=== PATIENT | female | born 1945 | race Caucasian/White ===

== ENCOUNTER 2023-04-28 10:22 | Outpatient (RCR) | payer MEDICARE, OTHER, SELFPAY | END 2023-06-03 13:37 | disposition home or self-care (01) | LOC: PT 10:22 | PROVIDERS: PCP Family Medicine Adult Medicine; Visit Provider Family Medicine Adult Medicine | DX: Z96.659 Presence of unspecified artificial knee joint (principal); M25.569 Pain in unspecified knee; M25.551 Pain in right hip; M54.16 Radiculopathy, lumbar region | CPT/HCPCS: 97010; 97035; 97110; 97112; 97140; 97161; G0283 ==

== ENCOUNTER 2023-07-29 13:23 | Outpatient (OUT) | payer MEDICARE, OTHER, SELFPAY ==
[2023-07-29 09:29] LABS: Bilirubin Urine NEGATIVE (NEGATIVE); Blood Urine NEGATIVE (NEGATIVE); Clarity Urine CLEAR (CLEAR); Color Urine LT. YELLOW (YELLOW); Glucose Urine UA NEGATIVE (NEGATIVE); Ketones Urine NEGATIVE (NEGATIVE); Leukocyte Esterase Urine SMALL (NEGATIVE); Nitrite Urine NEGATIVE (NEGATIVE); Protein Urine NEGATIVE (NEG/TRACE); Specific Gravity Urine 1.015 (1.005-1.025); Urobilinogen Urine 0.2 EU/dL (0.2-1.0)
[2023-07-29 10:05] LABS: Bacteria Urine LARGE #/HPF (NONE SEEN); Mucus Urine NONE SEEN (NONE SEEN); RBC Urine NONE SEEN #/HPF (0-2); Squamous Epithelial Cell Urine FEW #/LPF (NONE/RARE)
[2023-07-29 10:06] LABS: Urine Culture Indicated ALREADY ORDERED
== END 2023-07-29 13:24 | disposition home or self-care (01) ==
PROVIDERS: PCP Family Medicine Adult Medicine; Visit Provider Physician Assistant
DX: R10.9 Unspecified abdominal pain (principal)
CPT/HCPCS: 81001; 87086; 87150; 87186

== ENCOUNTER 2023-08-14 07:39 | Outpatient (OUT) | payer MEDICARE, OTHER, SELFPAY ==
--- OUTSIDE RECORDS SUMMARY | 2023-08-14 07:49 | XMS_ITS ---
Patient Summarization (C-CDA 2.1 CCD) Created on: August 14, 2023 OSIRIS HERRERA : 1945 Sex: Female Author Organization Sample organization Care Team Providers Care Client Strategist Name Role Phone NICK GUERRIER Admitting Unavailable NICK GUERRIER Attending Unavailable NICK GUERRIER Consulting Unavailable MIS, DOCTOR Primary Care Unavailable Dakotah Priest Primary Care Provider Aide Ball Unavailable Unavailable Unavailable Aide BALL Primary Care Physician Dakotah Gallardo Primary Care Physician Unavail able Marlys Bhardwaj Primary Care Physician [phone] Dakotah Gallardo Primary Care Physician Unavail able RANI CORCORAN Attending Unavailable MD Crow Gaona Admitting Unavailable Crow Gaona Attending Unavailable Crow Gaona Referring Unavailable Reyes VEGA Attending Unavailable Dakotah Gallardo Attending Unavailable Dakotah Gallardo Attending Unavailable Dakotah Gallardo Attending Unavailable ALEX Cornell Admitting UnavailMarilu Dutton Attending Unavailable Dakotah Gallardo Referring Unavailable Marilu Cornell Admitting Unavailable Marilu Cornell Attending Unavailable Marilu Cornell Referring Unavailable MD Crow Gaona Admitting Unavailable Crow Gaona Attending Unavailable Crow Gaona Referring Unavailable Dakotah Gallardo Attending Unavailable Dakotah Gallardo Attending Unavailable Dakotah Gallardo Attending Unavailable Dakotah Gallardo Attending Unavailable Dakotah Gallardo Attending Unavailable Dakotah Gallardo Attending Unavailable PRESTON LENNON Attending Unavailable Dakotah Gallardo Attending Unavailable Dakotah Gallardo Attending Unavailable Dakotah Gallardo Attending Unavailable Dakotah Gallardo Attending Unavailable Dakotah Gallardo Attending Unavailable Dakotah Gallardo Attending Unavailable Dakotah Gallardo Attending Unavailable Landry Mason Admitting Unavailable Landry Mason Attending Unavailable Moses MARTINEZ Admitting Unavailable Ashley Jordan Attending Unavailable MD Crow Gaona Admitting Unavailable Crow Gaona Attending Unavailable Dakotah Gallardo Referring Unavailable Marilu Cornell Admitting Unavailable Marilu Cornell Attending Unavailable Dakotah Gallardo Referring Unavailable Allergies Allergy Classification Reported Allergen(s) Allergy Type Date of Onset Reaction(s) Facility Aspirin (1 source) Aspirin Drug Allergy [facility] Chocolate (1 source) Chocolate Food Allergy [facility] Iodine (and Iodine containting drugs) (1 source) Iodine Drug Allergy [facility] Penicillins (antibiotic) (1 source) Penicillins Drug Allergy [facility] Sulfonamides (antibiotic) (1 source) Sulfonamides (Antibiotic) Drug Allergy [facility] (1 source) Adhesive agent Drug allergy (disorder) [facility] Repository (2 sources) Aspirin; Translations: [aspirin] Drug Allergy [facility] (1 source) Chocolate Drug allergy (disorder) [facility] (2 sources) Iodine; Translations: [iodine] Drug Allergy 6 [facility] (1 source) Penicillin Drug Allergy 6 [facility] (1 source) Sulfonamides (Antibiotic) Drug allergy (disorder) [facility] (20 sources) Aspirin; Translations: [Aspirin TABS] Drug Allergy Nausea [facility] Work Phone: (1 source) Iodine; Translations: [Iodine SOLN] Drug Allergy [facility] Work Phone: (20 sources) Penicillins; Translations: [Penicillins] Allergy to drug (finding) Eruption of skin (disorder) [facility] Work Phone: (1 source) Sulfonamides (Antibiotic); Translations: [Sulfa Drugs] Allergy to drug (finding) [facility] Work Phone: (1 source) Adhesive Tape TAPE; Translations: [Adhesive Tape TAPE] Allergy to drug (finding) [facility] Work [facility]: (20 sources) Adhesive bandage; Translations: [Adhesive Bandage] Allergy to substance Eruption of skin (disorder) [facility] (20 sources) Chocolate; Translations: [Chocolate] Food allergy Anaphylaxis (disorder) [facility] (20 sources) Sulfamethoxazole; Translations: [sulfamethoxazole ] Drug Allergy Swelling [facility] (20 sources) iodinated radiocontrast dyes 1; Translations: [iodinated radiocontrast agents] Drug allergy Unknown (qualifier value) [facility] Comment on above: gave benadryl last t dipika and did ok (1 source) iodinated radiocontrast dyes; Translations: [iodinated radiocontrast dyes] Propensity to adverse reactions (disorder) [facility] Repository Encounters Encounter Date Encounter Type Care Provider Facility Start: 07-31-2023 End: 08-01-2023 ambulatory PRESTON LENNON Facility:[facility] Start: 07-31-2023 End: 07-31-2023 Patient encounter procedure PRESTON LENNON [facility] Start: 07-17-2023 End: 07-18-2023 ambulatory Marilu Cornell Facility:[facility] Start: 07-17-2023 End: 07-17-2023 Pain Management Marilu Cornell [facility] Start: 07-04-2023 End: 07-05-2023 ambulatory MD Crow Gaona Facility:[facility] Start: 07-04-2023 End: 07-04-2023 Pain Management Crow Gaona [facility] Start: 06-27-2023 End: 06-28-2023 ambulatory Dakotah Gallardo Facility:[facility] Start: 06-27-2023 End: 06-27-2023 Patient encounter procedure Dakotah Gallardo [facility] Start: 05-22-2023 End: 05-23-2023 ambulatory MD Crow Gaona Facility:[facility] Start: 05-22-2023 End: 05-22-2023 Pain Management Crow Gaona [facility] Start: 05-15-2023 End: 05-15-2023 ambulatory RANI CORCORAN Not Available Start: 04-18-2023 End: 04-19-2023 ambulatory Dakotah Gallardo Facility:[facility] Start: 04-06-2023 [facility] Start: 03-31-2023 End: 04-01-2023 ambulatory Landry Mason Facility:[facility] Start: 03-31-2023 End: 03-31-2023 Patient encounter procedure Landry Mason [facility] Start: 03-31-2023 End: 04-01-2023 ambulatory Dakotah Gallardo Facility:[facility] Start: 03-31-2023 End: 03-31-2023 Patient encounter procedure Dakotah Gallardo [facility] Start: 02-10-2023 End: 03-13-2023 ambulatory Dakotah Gallardo Facility:[facility] Start: 01-11-2023 End: 01-27-2023 ambulatory Dakotah Gallardo Facility:[facility] Start: 01-11-2023 End: 01-26-2023 Off-Site Dakotah Gallardo [facility] Start: 01-09-2023 End: 01-10-2023 ambulatory Dakotah Law Geepallavi Facility:[facility] Start: 01-09-2023 End: 01-09-2023 Patient encounter procedure Dakotah Gallardo [facility] Start: 11-04-2022 End: 11-05-2022 ambulatory Dakotah Law Geepallavi Facility:[facility] Start: 11-04-2022 End: 11-04-2022 Patient encounter procedure Dakotah Gallardo [facility] Start: 10-24-2022 End: 10-25-2022 ambulatory Marilu Cornell Facility:[facility] Start: 10-24-2022 End: 10-24-2022 Patient encounter procedure Marilu Cornell [facility] Start: 09-21-2022 End: 09-22-2022 ambulatory Reyes VEGA Facility:[facility] Start: 09-21-2022 End: 09-21-2022 Patient encounter procedure Reyes VEGA [facility] Start: 09-16-2022 End: 09-17-2022 ambulatory Dakotah Ani Madrigalalexpallavi Facility:[facility] Start: 09-16-2022 End: 09-16-2022 Patient encounter procedure Dakotah Gallardo [facility] Start: 09-14-2022 ambulatory MD Crow Gaona Facil ity:[facility] Start: 09-05-2022 End: 09-06-2022 ambulatory PA-C Marilu Cornell Facility:[facility] Start: 09-05-2022 End: 09-05-2022 Pain Management Marilu Cornell [facility] Start: 08-31-2022 ambulatory MD Crow Gaona Facil ity:[facility] Start: 08-31-2022 End: 09-01-2022 ambulatory Dakotah Flynnpallavi Facility:[facility] Start: 08-23-2022 End: 08-24-2022 ambulatory MD Crow Gaona Facility:[facility] Start: 08-18-2022 End: 08-19-2022 Emergency department patient visit Moses MARTINEZ Facility:[facility] Start: 08-12-2022 End: 08-13-2022 ambulatory Dakotah Ani Geepallavi Facility:[facility] Start: 08-12-2022 End: 08-12-2022 Patient encounter procedure Dakotah Ani Madrigalvane [facility] Start: 08-11-2022 End: 09-06-2022 ambulatory Dakotah Gallardo Facility:[facility] Start: 08-11-2022 End: 09-05-2022 Off-Site [place] Ani Madrigalvane [facility] Start: 07-22-2022 End: 07-22-2022 Pain Management Marilu Cornell [facility] Start: 07-15-2022 End: 07-15-2022 Patient encounter procedure Dakotah Law Kaitlinvane [facility] Start: 07-13-2022 End: 07-13-2022 Patient encounter procedure Marilu Cornell [facility] Start: 07-11-2022 End: 07-11-2022 Patient encounter procedure Basmikel Clinton [facility] Start: 07-11-2022 End: 08-10-2022 [facility] [place] [facility] Start: 07-07-2022 End: 07-07-2022 Patient encounter procedure Marilu Cornell [facility] Start: 07-04-2022 End: 07-04-2022 Pain Management Mariluzach Cornell [facility] Start: 06-13-2022 End: 07-06-2022 Off-Site Dakotah Gallardo [facility] Start: 06-06-2022 End: 06-06-2022 Pain Management Crow Gaona [facility] Start: 05-30-2022 End: 05-30-2022 Patient encounter procedure Reynold Romo [facility] Start: 05-30-2022 End: 05-30-2022 Patient encounter procedure Dakotah Gallardo [facility] Start: 05-25-2022 End: 05-25-2022 Patient encounter procedure Floresita Clinton [facility] Start: 05-16-2022 End: 05-16-2022 Pain Management Mariluzach Cornell [facility] Start: 05-11-2022 End: 06-09-2022 Off-Site Dakotah Gallardo [facility] Start: 04-19-2022 End: 04-19-2022 Patient encounter procedure Dakotah Gallardo [facility] Start: 04-13-2022 End: 04-13-2022 Patient encounter procedure Reyes VEGA [facility] Start: 04-11-2022 End: 04-11-2022 Patient encounter procedure Reynold Romo [facility] Start: 03-28-2022 End: 03-28-2022 Patient encounter procedure Reyes Sandoval GARY [facility] Start: 03-22-2022 End: 04-05-2022 Pre-admission assessment Floresita Clinton [facility] Start: 03-21-2022 End: 03-21-2022 Lab Drop off [place] Lois Maria [facility] Start: 03-21-2022 End: 03-21-2022 Patient encounter procedure Floresita Clinton [facility] Start: 03-16-2022 End: 03-16-2022 Patient encounter procedure Dakotah Gallardo [facility] Start: 03-14-2022 End: 04-08-2022 Off-Site [place] Ani Gallardo [facility] Start: 02-28-2022 End: 02-28-2022 Patient encounter procedure [place] Ani Gallardo [facility] Start: 01-13-2022 End: 01-13-2022 Emergency department patient visit Crispin Vila [facility] Start: 01-13-2022 End: 01-13-2022 Patient encounter procedure Lico Benton [facility] Start: 12-13-2021 End: 01-06-2022 Off-Site Lico Gudimella [facility] Start: 11-30-2021 End: 11-30-2021 Patient encounter procedure Dakotah Gallardo [facility] Start: 10-15-2021 End: 10-15-2021 Patient encounter procedure Aide BALL [facility] Start: 10-11-2021 End: 11-02-2021 Off-Site Aide BALL [facility] Start: 10-01-2021 End: 10-01-2021 Patient encounter procedure Aide BALL [facility] Start: 09-29-2021 End: 09-29-2021 Emergency department patient visit Crispin Vila [facility] Start: 09-21-2021 End: 09-21-2021 Off-Site Aide BALL [facility] Start: 09-10-2021 End: 09-29-2021 Off-Site Aide BALL [facility] Start: 08-11-2021 End: 09-09-2021 Off-Site Aide BALL [facility] Start: 07-30-2021 End: 07-30-2021 Patient encounter procedure Nathan Henry [facility] Start: 07-12-2021 End: 07-12-2021 Patient encounter procedure Reyes Jaime VEGA [facility] Start: 07-12-2021 End: 08-06-2021 Off-Site Adie BALL [facility] Start: 06-11-2021 End: 07-02-2021 Off-Site Aide Abreu [employer] [facility] Start: 05-11-2021 End: 06-08-2021 Off-Site Aide CHAMBERLAINFIELD [facility] Start: 11-04-2020 Patient encounter procedure Aide Lois Quinn [facility] Phone[facility] Work Phone: Start: 11-16-2019 End: 11-17-2019 Patient encounter procedure NICK GUERRIER Facility: Start: 03-24-2006 End: 03-24-2006 Patient encounter procedure Earnest Bermudez MD Work Phone: Cardiothoracic Comment on above: PULM HYPERTENSION (P rimary Dx) Medical Equipment Procedure Code Equipment Code Equipment Origin al Text Equipment Identifier Dates FDA Start: 09-07-2020 FDA Start: 09-07-2020 FDA Start: 09-07-2020 FDA Start: 09-07-2020 FDA Start: 09-07-2020 HERNIA REPAIR VENTRAL ADULT Star JARRETT MD 09/07/20 Non Biological Abdomen FDA Start: 09-07-2020 HERNIA REPAIR VENTRAL ADULT Star JARRETT MD 09/07/20 Non Biological Abdomen FDA Start: 09-07-2020 HERNIA REPAIR VENTRAL ADULT Star JARRETT MD 09/07/20 Non Biological Abdomen FDA Start: 09-07-2020 HERNIA REPAIR VENTRAL ADULT KOLBY BANSAL, Star Esteves 09/07/20 Non Biological Abdomen FDA Start: 09-07-2020 HERNIA REPAIR VENTRAL ADULT KOLBY BANSAL, Star Esteves 09/07/20 Non Biological Abdomen FDA Start: 09-07-2020 HERNIA REPAIR VENTRAL ADULT KOLBY BANSAL, Star Esteves 09/07/20 Non Biological Abdomen FDA Start: 09-07-2020 HERNIA REPAIR VENTRAL ADULT KOLBY ABNSAL, Star Esteves 09/07/20 Non Biological Abdomen FDA Start: 09-07-2020 HERNIA REPAIR VENTRAL ADULT KOLBY BANSAL, Star Esteves 09/07/20 Non Biological Abdomen FDA Start: 09-07-2020 HERNIA REPAIR VENTRAL ADULT KOLBY BANSAL, Star Esteves 09/07/20 Non Biological Abdomen FDA Start: 09-07-2020 HERNIA REPAIR VENTRAL ADULT KOLBY BANSAL, Star Esteves 09/07/20 Non Biological Abdomen FDA Start: 09-07-2020 HERNIA REPAIR VENTRAL ADULT KOLBY BANSAL, Star Esteves 09/07/20 Non Biological Abdomen FDA Start: 09-07-2020 HERNIA REPAIR VENTRAL ADULT KOLBY BANSAL, Star Esteves 09/07/20 Non Biological Abdomen FDA Start: 09-07-2020 HERNIA REPAIR VENTRAL ADULT KOLBY BANSAL, Star Esteves 09/07/20 Non Biological Abdomen FDA Start: 09-07-2020 HERNIA REPAIR VENTRAL ADULT KOLBY BANSAL, Star Esteves 09/07/20 Non Biological Abdomen FDA Start: 09-07-2020 HERNIA REPAIR VENTRAL ADULT KOLBY BANSAL, Star Esteves 09/07/20 Non Biological Abdomen FDA Start: 09-07-2020 HERNIA REPAIR VENTRAL ADULT Star JARRETT MD 09/07/20 Non Biological Abdomen FDA Start: 09-07-2020 HERNIA REPAIR VENTRAL ADULT Star JARRETT MD 09/07/20 Non Biological Abdomen FDA Start: 09-07-2020 HERNIA REPAIR VENTRAL ADULT KOLBY BANSAL, Star Esteves 09/07/20 Non Biological Abdomen FDA Start: 09-07-2020 HERNIA REPAIR VENTRAL ADULT KOLBY BANSAL, Star Esteves 09/07/20 Non Biological Abdomen FDA Start: 09-07-2020 HERNIA REPAIR VENTRAL ADULT KOLBY BANSAL, Star Esteves 09/07/20 Non Biological Abdomen FDA Start: 09-07-2020 HERNIA REPAIR VENTRAL ADULT Star JARRETT MD 09/07/20 Non Biological Abdomen FDA Start: 09-07-2020 HERNIA REPAIR VENTRAL ADULT KOLBY BANSAL, Star Esteves 09/07/20 Non Biological Abdomen FDA Start: 09-07-2020 HERNIA REPAIR VENTRAL ADULT KOLBY BANSAL, Star Esteves 09/07/20 Non Biological Abdomen FDA Start: 09-07-2020 HERNIA REPAIR VENTRAL ADULT KOLBY BANSAL, Star Esteves 09/07/20 Non Biological Abdomen FDA Start: 09-07-2020 HERNIA REPAIR VENTRAL ADULT KOLBY BANSAL, Star Esteves 09/07/20 Non Biological Abdomen FDA Start: 09-07-2020 HERNIA REPAIR VENTRAL ADULT KOLBY BANSAL, Star Esteves 09/07/20 Non Biological Abdomen FDA Start: 09-07-2020 HERNIA REPAIR VENTRAL ADULT KOLBY BANSAL, Star Esteves 09/07/20 Non Biological Abdomen FDA Start: 09-07-2020 HERNIA REPAIR VENTRAL ADULT KOLBY BANSAL, Star Esteves 09/07/20 Non Biological Abdomen FDA Start: 09-07-2020 HERNIA REPAIR VENTRAL ADULT KOLBY BANSAL, Star Esteves 09/07/20 Non Biological Abdomen FDA Start: 09-07-2020 HERNIA REPAIR VENTRAL ADULT KOLBY BANSAL, Star Esteves 09/07/20 Non Biological Abdomen FDA Start: 09-07-2020 HERNIA REPAIR VENTRAL ADULT KOLBY BANSAL, Star Esteves 09/07/20 Non Biological Abdomen FDA Start: 09-07-2020 HERNIA REPAIR VENTRAL ADULT KOLBY BANSAL, Star Esteves 09/07/20 Non Biological Abdomen FDA Start: 09-07-2020 HERNIA REPAIR VENTRAL ADULT Star JARRETT MD 09/07/20 Non Biological Abdomen FDA Start: 09-07-2020 HERNIA REPAIR VENTRAL ADULT KOLBY BANSAL, Star Esteves 09/07/20 Non Biological Abdomen FDA Start: 09-07-2020 HERNIA REPAIR VENTRAL ADULT Star JARRETT MD 09/07/20 Non Biological Abdomen FDA Start: 09-07-2020 HERNIA REPAIR VENTRAL ADULT Star JARRETT MD 09/07/20 Non Biological Abdomen FDA Start: 09-07-2020 HERNIA REPAIR VENTRAL ADULT Star JARRETT MD 09/07/20 Non Biological Abdomen FDA Start: 09-07-2020 HERNIA REPAIR VENTRAL ADULT Star JARRETT MD 09/07/20 Non Biological Abdomen FDA Start: 09-07-2020 HERNIA REPAIR VENTRAL ADULT KOLBY BANSAL, Star Esteves 09/07/20 Non Biological Abdomen FDA Start: 09-07-2020 HERNIA REPAIR VENTRAL ADULT Star JARRETT MD 09/07/20 Non Biological Abdomen FDA Start: 09-07-2020 HERNIA REPAIR VENTRAL ADULT Star JARRETT MD 09/07/20 Non Biological Abdomen FDA Start: 09-07-2020 HERNIA REPAIR VENTRAL ADULT Star JARRETT MD 09/07/20 Non Biological Abdomen FDA Start: 09-07-2020 HERNIA REPAIR VENTRAL ADULT Star JARRETT MD 09/07/20 Non Biological Abdomen FDA Start: 09-07-2020 HERNIA REPAIR VENTRAL ADULT Star JARRETT MD 09/07/20 Non Biological Abdomen FDA Start: 09-07-2020 HERNIA REPAIR VENTRAL ADULT Star JARRETT MD 09/07/20 Non Biological Abdomen FDA Start: 09-07-2020 HERNIA REPAIR VENTRAL ADULT Star JARRETT MD 09/07/20 Non Biological Abdomen FDA Start: 09-07-2020 HERNIA REPAIR VENTRAL ADULT Star JARRETT MD 09/07/20 Non Biological Abdomen FDA Start: 09-07-2020 HERNIA REPAIR VENTRAL ADULT Star JARRETT MD 09/07/20 Non Biological Abdomen FDA Start: 09-07-2020 HERNIA REPAIR VENTRAL ADULT Star JARRETT MD 09/07/20 Non Biological Abdomen FDA Start: 09-07-2020 HERNIA REPAIR VENTRAL ADULT Star JARRETT MD 09/07/20 Non Biological Abdomen FDA Start: 09-07-2020 HERNIA REPAIR VENTRAL ADULT Star JARRETT MD 09/07/20 Non Biological Abdomen FDA Start: 09-07-2020 HERNIA REPAIR VENTRAL ADULT Star JARRETT MD 09/07/20 Non Biological Abdomen FDA Start: 09-07-2020 HERNIA REPAIR VENTRAL ADULT Star JARRETT MD 09/07/20 Non Biological Abdomen FDA Start: 09-07-2020 HERNIA REPAIR VENTRAL ADULT Star JARRETT MD 09/07/20 Non Biological Abdomen FDA Start: 09-07-2020 HERNIA REPAIR VENTRAL ADULT Star JARRETT MD 09/07/20 Non Biological Abdomen FDA Start: 09-07-2020 Goals Date Patient Goal Desired Activity /State 03-23-2021 09-22-2020 11-05-2019 01-03-2019 Immunizations Immunization Date Immunization Notes Care Provider Fa tres 05-22-2023 zoster vaccine recombinant PRESTON LENNON [facility] 02-06-2023 zoster vaccine recombinant [facility] 02-06-2023 zoster vaccine, live [facility] Comment on above: Result Comment: Zost er Recombinant [facility] 01-09-2023 influenza, high dose seasonal, preservative-free [facility] Comment on above: Early/Late Reason: E ole/Late Reason: System Down 01-18-2022 COVID-19, mRNA, LNP- S, bivalent booster, PF, 30 mcg/0.3 mL dose [facility] 01-18-2022 influenza, high dose seasonal, preservative-free [facility] 01-13-2021 COVID-19, mRNA, LNP- S, PF, 30 mcg/0.3 mL dose Aide QUINN [facility] 12-09-2020 influenza, high dose seasonal, preservative-free Aide QUINN [facility] 05-18-2020 SARS-CoV-2 (COVID-19 ) mRNA-1273 vaccine Aide QUINN [facility] Comment on above: Result Comment: Samuel malik & Patrice vaccine administered with [facility] dept [employer] scanned with date 12-27-2019 influenza, high dose seasonal, preservative-free Aide QUINN [facility] 12-18-2018 influenza, high dose seasonal, preservative-free Aide QUINN [facility] 01-09-2018 influenza virus vaccine, unspecified formulation Aide CHAMBERLAINFIELD [facility] 03-29-2017 pneumococcal conjuga te vaccine, 13 valhemanth CHAMBERLAINFIELD [facility] 12-08-2016 influenza virus vaccine, unspecified formulation Dakotah Gallardo [facility] 12-17-2015 influenza virus vaccine, unspecified formulation Dakotah Gallardo [facility] 01-21-2014 pneumococcal polysaccharide vaccine, 23 valent Aide QUINN [facility] 12-16-2013 pneumococcal polysaccharide vaccine, 23 valent Aide CHAMBERLAINFIELD [facility] 01-04-2008 pneumococcal polysaccharide vaccine, 23 valhemanth CHAMBERLAINFIELD [facility] NEGATED: Highlighted row has not occurred!01-13-2022 influenza virus vaccine, unspecified formulation Lico Bhardwaj [facility] Medications Current Medications Medication Drug Class(es) Dates Sig (Normalized) Sig (Original) acetaminophen 500 mg oral tablet (20 sources) Start: 05-22-2023 take 500 mg by mouth every six hours Tylenol 500 mg, Oral, q6hr, Refills(s) 0 Start Date: 05/22/23 Status: Ordered Start: 05-22-2023 Tylenol Refill s(s) 0 Start Date: 05/22/23 Status: Ordered Start: 05-14-2019 take 2 tablets by mo uth every six hours as needed for pain Tylenol Extra Strength 500 mg oral tablet 1,000 mg = 2 tab(s), Oral, q6hr, PRN as needed for pain, Refills(s) 0 Start Date: 05/14/19 Status: Ordered acetaminophen 325 mg / oxyCODONE hydrochloride 5 mg oral tablet (20 sources) Opioid Agonist Start: 07-31-2023 acetaminophen- oxycodone 325 mg-5 mg Tab 1 tab(s), Oral, BID, 60 tab(s), Refill(s) 0 Start Date: 07/31/23 Status: Ordered Start: 06-29-2023 acetaminophen- oxycodone 325 mg-5 mg Tab 1 tab(s), Oral, BID, 60 tab(s), Refill(s) 0, 30 day supply, [id number], 169, cm, 05/22/23 11:18:00 EDT, Height/Length Dosing, 84.1, kg, 05/22/23 11:18:00 EDT, Weight Dosing Start Date: 06/29/23 Status: Ordered Start: 06-01-2023 acetaminophen- oxycodone 325 mg-5 mg Tab 1 tab(s), Oral, BID, 60 tab(s), Refill(s) 0, 30 day supply, [id number], 169, cm, 05/22/23 11:18:00 EDT, Height/Length Dosing, 84.1, kg, 05/22/23 11:18:00 EDT, Weight Dosing Start Date: 06/01/23 Status: Ordered Start: 05-02-2023 acetaminophen- oxycodone 325 mg-5 mg Tab 1 tab(s), Oral, BID, 60 tab(s), Refill(s) 0, [id number], 169, cm, 04/18/23 14:16:00 EST, Height/Length Dosing, 86.3, kg, 04/18/23 14:16:00 EST, Weight Dosing Start Date: 05/02/23 Status: Ordered Start: 03-28-2023 acetaminophen- oxycodone 325 mg-5 mg Tab 1 tab(s), Oral, BID, 60 tab(s), Refill(s) 0, [id number], 164, cm, 01/09/23 16:01:00 EDT, Height/Length Dosing, 86.6, kg, 01/09/23 16:01:00 EDT, Weight Dosing Start Date: 03/28/23 Status: Ordered Start: 11-04-2022 take 1 tablet by jaden th at bedtime Percocet 5 mg-325 mg oral tablet 1 tab(s), Oral, Bedtime, 30 tab(s), Refill(s) 0, [facility], 164, cm, 11/04/22 10:24:00 EDT, Height/Length Dosing, 85, kg, 11/04/22 10:24:00 EDT, Weight Dosing Start Date: 11/04/22 Status: Ordered Start: 10-04-2022 take 1 tablet by [facility] twice daily Percocet 5 mg-325 mg oral tablet 1 tab(s), Oral, BID, 60 tab(s), Refill(s) 0, [facility], 164, cm, 09/16/22 10:08:00 EDT, Height/Length Dosing, 87.7, kg, 09/16/22 10:08:00 EDT, Weight Dosing Start Date: 10/04/22 Status: Ordered Start: 08-30-2022 take 1 tablet by [facility] twice daily Percocet 5 mg-325 mg oral tablet 1 tab(s), Oral, BID, 60 tab(s), Refill(s) 0, [facility], 168, cm, 08/23/22 10:38:00 EDT, Height/Length Dosing, 90.8, kg, 08/18/22 19:15:00 EDT, Weight Dosing Start Date: 08/31/22 Status: Ordered Start: 07-27-2022 Percocet 5 mg- 325 mg oral tablet 1 tab(s), Oral, BID, 60 tab(s), Refill(s) 0, [facility] #[id number], 168, cm, 07/22/22 13:03:00 EDT, Height/Length Dosing, 89.8, kg, 07/22/22 13:03:00 EDT, Weight Dosing Start Date: 07/27/22 Status: Ordered Start: 07-15-2022 Percocet 5 mg- 325 mg oral tablet 1 tab(s), Oral, BID, 14 tab(s), Refill(s) 0, [facility] #[id number], 168, cm, 07/15/22 11:11:00 EDT, Height/Length Dosing, 84.1, kg, 07/15/22 11:11:00 EDT, Weight Dosing Start Date: 07/15/22 Status: Ordered albuterol 0.833 mg/ml / ipratropium bromide 0.167 mg/ml inhalation solution (20 sources) Anticholinergic, beta2-Adrenergic Agonist Start: 02-26-2021 take 3 mL by inhalation four times daily albuterol-ipratropium Inh Lizzeth 3 mL UD 3 mL, NEB, QID Wheezing, 120 EA, Refill(s) 11, [facility] #[id number], 165, cm, 02/26/21 14:54:00 EST, Height/Length Dosing, 88.6, kg, 02/26/21 14:54:00 EST, Weight Dosing Start Date: 02/26/21 Status: Ordered Start: 02-26-2021 take 3 mL by inhalat ion four times daily albuterol-ipratropium Inh Lizzeth 3 mL UD 3 mL, NEB, QID Wheezing, 120 EA, Refill(s) 11, [facility] #[id number], 165, cm, 02/26/21 14:54:00 EST, Height/Length Dosing, 88.6, kg, 02/26/21 14:54:00 EST, Weight Dosing Start Date: 02/26/21 Status: Ordered amLODIPine 5 mg oral tablet (20 sources) Dihydropyridine Calcium Channel Tamar Start: 04-06-2023 take 1 tablet by mouth once daily amLODIPine 5 mg Tab 5 mg = 1 tab(s), Oral, Daily, # 90 tab(s), Refills(s) 4, [id number] 169, cm, 03/31/23 13:47:00 EST, Height/Length Dosing, 83.6, kg, 03/31/23 13:47:00 EST, Weight Dosing Start Date: 04/06/23 Status: Ordered Start: 02-28-2022 take 1 tablet by jaden th once daily amLODIPine 5 mg Tab 5 mg = 1 tab(s), Oral, Daily, # 90 tab(s), Refills(s) 3, Pharmacy: [facility] #[id number], 168, cm, 02/28/22 16:04:00 EST, Height/Length Dosing, 89.7, kg, 02/28/22 16:04:00 EST, Weight Dosing Start Date: 02/28/22 Status: Ordered Start: 01-12-2021 take 1 tablet by jaden th once daily amLODIPine 5 mg Tab 5 mg = 1 tab(s), Oral, Daily, # 90 tab(s), Refills(s) 3, [id number], 165.7, cm, 01/12/21 9:44:00 EDT, Height/Length Dosing, 88.5, kg, 01/12/21 9:44:00 EDT, Weight Dosing Start Date: 01/12/21 Status: Ordered Norvasc TABS Silvano ntity: 0 Refills: 0 Ordered: 04-Nov-2020 DO Active azithromycin 500 mg oral tablet (3 sources) Macrolide Antimicrobial Start: 05-30-2022 End: 06-05-2022 take 2 tablets by mouth once daily as needed azithromycin 500 mg oral tablet 1,000 mg = 2 tab(s), Oral, Daily, PRN Agitation, X 3 day(s), # 6 tab(s), Refills(s) 1, [id number], 165, cm, 05/30/22 11:07:00 EDT, Height/Length Dosing, 87.6, kg, 05/30/22 11:07:00 EDT, Weight Dosing Start Date: 05/30/22 Stop Date: 06/05/22 Status: Ordered Start: 02-28-2022 End: 03-10-2022 azithromycin 250 mg Tab = 1 packet(s), Oral, As Directed, as directed on package labeling, X 5 day(s), # 6 tab(s), Refills(s) 1, [id number] 168, cm, 02/28/22 16:04:00 EST, Height/Length Dosing, 89.7, kg, 02/28/22 16:04:00 EST, Weight Dosing Start Date: 02/28/22 Stop Date: 03/10/22 Status: Ordered azithromycin 250 mg Tab 5-da y Dose Pack (Z-Hector) (10 sources) Start: 10-01-2021 azithromycin 2 50 mg Tab 5-day Dose Pack (Z-Hector) = 1 packet(s), Oral, As Directed, as directed on package labeling for her rescue hector, # 6 tab(s), Refills(s) 0, Pharmacy: [id number], 168, cm, 10/01/21 16:17:00 EDT, Height/Length Dosing, 86, kg, 10/01/21 16:17:00 EDT, Weight Dosing Start Date: 10/01/21 Status: Ordered Start: 09-21-2021 End: 09-26-2021 azithromycin 250 mg Tab 5-da y Dose Pack (Z-Hector) 250 mg = 1 tab(s), Oral, As Directed, as directed on package labeling, X 5 day(s), # 6 tab(s), Refills(s) 0, Pharmacy: [facility][id number], 168, cm, 07/30/21 10:21:00 EDT, Height/Length Dosing, 87.2, kg, 07/30/21 10:21:00 EDT, Weight Dosing Start Date: 09/21/21 Stop Date: 09/26/21 Status: Ordered Start: 07-28-2021 End: 08-02-2021 azithromycin 250 mg Tab 5-da y Dose Pack (Z-Hector) = 1 packet(s), Oral, As Directed, as directed on package labeling, X 5 day(s), # 6 tab(s), Refills(s) 0, [id number], 168, cm, 07/28/21 13:24:00 EDT, Height/Length Dosing, 87.2, kg, 07/28/21 13:24:00 EDT, Weight Dosing Start Date: 07/28/21 Stop Date: 08/02/21 Status: Ordered bisacodyl 5 mg delayed release oral tablet (12 sources) Stimulant Laxative Start: 08-31-2020 take 2-3 tablets by mouth once daily for constipation Dulcolax Tab-EC 2-3 tabs, Oral, Daily, adjusts for constipation concerns, Refills(s) 0 Start Date: 08/31/20 Status: Ordered ciprofloxacin 500 mg oral tablet (17 sources) Quinolone Antimicrobial Start: 07-31-2023 End: 08-07-2023 take 1 tablet by mouth every twelve hours Cipro 500 mg Tab 500 mg = 1 tab(s), Oral, q12hr, X 7 day(s), # 14 tab(s), Refills(s) 0, Pharmacy: [id number], 168, cm, 07/31/23 15:00:00 EDT, Height/Length Dosing, 84, kg, 07/31/23 15:00:00 EDT, Weight Dosing Start Date: 07/31/23 Stop Date: 08/07/23 Status: Ordered Start: 06-09-2022 Cipro 500 mg T ab 500 mg = 1 tab(s), Oral, BID, Take twice daily x5 days starting the day prior to the procedure, # 10 tab(s), Refills(s) 0, Pharmacy: [id number], 168, cm, 06/06/22 14:12:00 EDT, Height/Length Dosing, 87.6, kg, 05/30/22 11:07:00 EDT, Weight Dosing Start Date: 06/09/22 Status: Ordered Start: 02-14-2022 take 1 tablet by jaden th twice daily Cipro 500 mg Tab 500 mg = 1 tab(s), Oral, BID, start day prior to procedure., # 14 tab(s), Refills(s) 0, Pharmacy: [id number], 168, cm, 02/14/22 10:28:00 EST, Height/Length Dosing, 89.3, kg, 02/14/22 10:28:00 EST, Weight Dosing Start Date: 02/14/22 Status: Ordered clotrimazole 10 mg oral lozenge (1 source) Azole Antifungal Start: 02-28-2022 End: 03-14-2022 clotrimazole 10 mg Emerald 10 mg = 1 lozenge(s), Oral, 5x/Day, X 7 day(s), # 35 lozenge(s), Refills(s) 1, Pharmacy: [id number], 168, cm, 02/28/22 16:04:00 EST, Height/Length Dosing, 89.7, kg, 02/28/22 16:04:00 EST, Weight Dosing Start Date: 02/28/22 Stop Date: 03/14/22 Status: Ordered cyclobenzaprine hydrochloride 5 mg oral tablet (10 sources) Muscle Relaxant Start: 08-31-2022 take 1 tablet by mouth once daily cyclobenzaprine 5 mg Tab 5 mg = 1 tab(s), Oral, Daily, at night, Refills(s) 0 Start Date: 08/31/22 Status: Ordered Start: 08-12-2022 take 1 tablet by jaden th at bedtime cyclobenzaprine 5 mg Tab 5 mg = 1 tab(s), Oral, Bedtime, # 30 tab(s), Refills(s) 11, Pharmacy: [id number], 168, cm, 08/12/22 9:51:00 EDT, Height/Length Dosing, 86.9, kg, 08/12/22 9:51:00 EDT, Weight Dosing Start Date: 08/12/22 Status: Ordered Start: 07-15-2022 take 1 tablet by jaden th at bedtime cyclobenzaprine 5 mg Tab 5 mg = 1 tab(s), Oral, Bedtime, # 30 tab(s), Refills(s) 0, Pharmacy: [id number], 168, cm, 07/15/22 11:11:00 EDT, Height/Length Dosing, 84.1, kg, 07/15/22 11:11:00 EDT, Weight Dosing Start Date: 07/15/22 Status: Ordered dexlansoprazole 60 mg delayed release oral capsule (20 sources) Proton Pump Inhibitor Start: 04-26-2019 take 1 capsule by mouth once daily Dexilant 60 mg oral delayed release capsule 60 mg = 1 cap(s), Oral, Daily, # 7 cap(s), Refills(s) 0, [facility] [place] [id number], 172.72, cm, 04/24/19 11:14:00 EST, Height/Length Measured, 87.38, kg, 04/24/19 11:14:00 EST, Weight Measured Start Date: 04/26/19 Status: Ordered Dexilant 60 MG O ral Capsule Delayed Release Quantity: 0 Refills: 0 Ordered: 04-Nov-2020 DO Active diphenhydrAMINE hydrochloride 25 mg oral tablet (20 sources) Histamine-1 Receptor Antagonist Start: 05-31-2021 take 2 tablets by mouth at bedtime Benadryl 25 mg Tab = 2 tab(s), Oral, Bedtime, Refills(s) 0 Start Date: 05/31/21 Status: Ordered doxycycline monohydrate 100 mg oral capsule (2 sources) Tetracycline-cla ss Drug Start: 01-13-2022 End: 01-23-2022 take 1 capsule by mouth twice daily doxycycline monohydrate 100 mg oral capsule 100 mg = 1 cap(s), Oral, BID, X 10 day(s), # 20 cap(s), Refills(s) 0, Pharmacy: [id number], 168, cm, 01/13/22 10:18:00 EDT, Height/Length Dosing, 89.3, kg, 01/13/22 10:18:00 EDT, Weight Dosing Start Date: 01/13/22 Stop Date: 01/23/22 Status: Ordered Dulcolax Tab-EC (20 sources) Start: 08-31-2020 take 2-3 tablets by mouth once daily for constipation Dulcolax Tab-EC 2-3 tabs, Oral, Daily, adjusts for constipation concerns, Refills(s) 0 Start Date: 08/31/20 Status: Ordered gabapentin 100 mg oral capsule (20 sources) Anti-epileptic Agent Start: 03-31-2023 take 2 capsules by mouth three times daily gabapentin 100 mg Cap 200 mg = 2 cap(s), Oral, TID, # 180 cap(s), Refills(s) 11, Pharmacy: [id number], 169, cm, 03/31/23 13:47:00 EST, Height/Length Dosing, 83.6, kg, 03/31/23 13:47:00 EST, Weight Dosing Start Date: 03/31/23 Status: Ordered Start: 08-12-2022 take 2 capsules by m outh twice daily gabapentin 100 mg Cap 200 mg = 2 cap(s), Oral, BID, # 120 cap(s), Refills(s) 11, Pharmacy: [id number], 168, cm, 08/12/22 9:51:00 EDT, Height/Length Dosing, 86.9, kg, 08/12/22 9:51:00 EDT, Weight Dosing Start Date: 08/12/22 Status: Ordered Start: 04-19-2022 take 1 capsule by mo ut three times daily gabapentin 100 mg Cap 100 mg = 1 cap(s), Oral, TID, # 90 cap(s), Refills(s) 2, Pharmacy: [facility][id number], 168, cm, 04/19/22 10:28:00 EST, Height/Length Dosing, 90, kg, 04/19/22 10:28:00 EST, Weight Dosing Start Date: 04/19/22 Status: Ordered Handicap Placard (10 sources) Start: 01-09-[address] Handicap Placard, See Instructions, 1 EA, 0, Expires in 5 years, Supply Start Date: 01/09/23 Status: Ordered hydroCHLOROthiazide 25 mg / triamterene 37.5 mg oral tablet (20 sources) Potassium-sparin g Diuretic, Thiazide Diuretic Start: 01-20-2023 Maxzide-25 oral tablet 1 tab(s), Oral, Daily, 90 tab(s), Refill(s) 4, [facility][id number], 164, cm, 01/09/23 16:01:00 EDT, Height/Length Dosing, 86.6, kg, 01/09/23 16:01:00 EDT, Weight Dosing Start Date: 01/20/23 Status: Ordered Start: 01-04-2023 take 1 tablet by [facility] once daily Maxzide-25 oral tablet 1 tab(s), Oral, Daily, 90 tab(s), Refill(s) 4, [facility], 164, cm, 11/04/22 10:24:00 EDT, Height/Length Dosing, 85, kg, 11/04/22 10:24:00 EDT, Weight Dosing Start Date: 01/04/23 Status: Ordered Start: 01-17-2022 Maxzide-25 ora l tablet 1 tab(s), Oral, Daily, 90 tab(s), Refill(s) 3, Covering for , [facility][id number], 168, cm, 01/13/22 10:18:00 EDT, Height/Length Dosing, 89.3, kg, 01/13/22 10:18:00 EDT, Weight Dosing Start Date: 01/17/22 Status: Ordered Start: 01-15-2021 Maxzide-25 ora l tablet 1 tab(s), Oral, Daily, 90 tab(s), Refill(s) 3, [id number], 165.7, cm, 01/12/21 9:44:00 EDT, Height/Length Dosing, 88.5, kg, 01/12/21 9:44:00 EDT, Weight Dosing Start Date: 01/15/21 Status: Ordered ibuprofen 800 mg oral tablet (5 sources) Nonsteroidal Anti-inflammatory Drug Start: 03-31-2023 take 1 mg by mouth three times daily ibuprofen 800 mg Tab mg tab(s), Oral, TID, Refills(s) 0 Start Date: 03/31/23 Status: Ordered Icy Hot Max Lidoacaine (20 sources) Start: 02-28-2022 Icy Hot Max Lidoacaine Refill(s) 0 Start Date: 02/28/22 Status: Ordered Misc Medication (20 sources) Start: 07-10-2020 Misc Medication 2 tab(s), Oral, BID, Gagandeep gets from Dr. Khan Start Date: 07/10/20 Status: Ordered naloxone hydrochloride 40 mg/ml nasal spray (20 sources) Opioid Antagonist Start: 07-12-2022 Narcan 4 mg/0.1 mL nasal spray 4 mg, Nasal, As Directed, for suspected overdose symptoms, # 1 kit(s), Refills(s) 0, Pharmacy: [facility] #[id number], 168, cm, 07/11/22 15:36:00 EDT, Height/Length Dosing, 90, kg, 07/11/22 15:36:00 EDT, Weight Dosing Start Date: 07/12/22 Status: Ordered nebulizer supplies (20 sources) Start: 12-31-2019 nebulizer supplies nebulizer supplies, See Instructions, 1 EA, 11, nebulizer supplies dx J44.9, [facility], Supply, 158, cm, 12/27/19 11:56:00 EDT, Height/Length Dosing, 88.6, kg, 12/27/19 11:56:00 EDT, Weight Dosing Start Date: 12/31/19 Status: Ordered 60 actuat olodaterol 0.0025 mg/actuat / tiotropium 0.0025 mg/actuat inhalation spray (20 sources) Anticholinergic, beta2-Adrenergic Agonist Start: 08-31-2022 Stiolto Respimat 2.5 mcg-2.5 mcg inhalation aerosol = 2 puff(s), Inhalation, q24hr, # 2 EA, Refills(s) 0, samples given to patient (Rx) Start Date: 08/31/22 Status: Ordered Start: 06-24-2022 Stiolto Respim at 2.5 mcg-2.5 mcg inhalation aerosol = 2 puff(s), Inhalation, q24hr, # 2 EA, Refills(s) 11, samples given to patient (Rx) Start Date: 06/24/22 Status: Ordered Start: 02-23-2022 Stiolto Respim at 2.5 mcg-2.5 mcg inhalation aerosol = 2 puff(s), Inhalation, q24hr, # 2 EA, Refills(s) 0, samples given to patient (Rx) Start Date: 02/23/22 Status: Ordered Start: 01-13-2022 Stiolto Respim at 2.5 mcg-2.5 mcg inhalation aerosol = 2 puff(s), Inhalation, q24hr, # 2 EA, Refills(s) 0, samples given to patient (Rx) Start Date: 01/13/22 Status: Ordered Start: 12-21-2020 Stiolto Respim at 2.5 mcg-2.5 mcg inhalation aerosol = 2 puff(s), Inhalation, q24hr, # 2 EA, Refills(s) 0, samples given to patient (Rx) Start Date: 12/28/21 Status: Ordered omeprazole 20 mg delayed release oral capsule (20 sources) Proton Pump Inhibitor Start: 04-06-2023 take 1 capsule by mouth once daily omeprazole 20 mg Cap-DR 20 mg = 1 cap(s), Oral, Daily, # 90 cap(s), Refills(s) 4, Pharmacy: [facility] #[id number], 169, cm, 03/31/23 13:47:00 EST, Height/Length Dosing, 83.6, kg, 03/31/23 13:47:00 EST, Weight Dosing Start Date: 04/06/23 Status: Ordered Start: 05-30-2022 take 1 capsule by [facility] once daily omeprazole 20 mg Cap-DR 20 mg = 1 cap(s), Oral, Daily, # 90 cap(s), Refills(s) 4, Pharmacy: [facility] #[id number], 165, cm, 05/30/22 11:07:00 EDT, Height/Length Dosing, 87.6, kg, 05/30/22 11:07:00 EDT, Weight Dosing Start Date: 05/30/22 Status: Ordered predniSONE 20 mg oral tablet (20 sources) Start: 05-30-2022 End: 06-05-2022 take 2 tablets by mouth once daily predniSONE 20 mg Tab 40 mg = 2 tab(s), Oral, Daily, X 3 day(s), # 6 tab(s), Refills(s) 1, Pharmacy: [facility] #[id number], 165, cm, 05/30/22 11:07:00 EDT, Height/Length Dosing, 87.6, kg, 05/30/22 11:07:00 EDT, Weight Dosing Start Date: 05/30/22 Stop Date: 06/05/22 Status: Ordered Start: 02-28-2022 End: 03-14-2022 take 2 tablets by mouth once daily predniSONE 20 mg Tab 40 mg = 2 tab(s), Oral, Daily, X 7 day(s), # 14 tab(s), Refills(s) 1, Pharmacy: [id number], 168, cm, 02/28/22 16:04:00 EST, Height/Length Dosing, 89.7, kg, 02/28/22 16:04:00 EST, Weight Dosing Start Date: 02/28/22 Stop Date: 03/14/22 Status: Ordered Start: 10-01-2021 predniSONE 10 mg Tab 30 mg = 3 tab(s), Oral, As Directed, rescue hector, # 21 tab(s), Refills(s) 0, Pharmacy: [id number], 168, cm, 10/01/21 16:17:00 EDT, Height/Length Dosing, 86, kg, 10/01/21 16:17:00 EDT, Weight Dosing Start Date: 10/01/21 Status: Ordered Start: 09-21-2021 End: 01-20-2022 take 3 tablets by mouth once daily predniSONE 20 mg Tab 60 mg = 3 tab(s), Oral, Daily, X 7 day(s), # 21 tab(s), Refills(s) 0, Pharmacy: [id number], 168, cm, 01/13/22 10:18:00 EDT, Height/Length Dosing, 89.3, kg, 01/13/22 10:18:00 EDT, Weight Dosing Start Date: 01/13/22 Stop Date: 01/20/22 Status: Ordered Start: 07-28-2021 End: 08-02-2021 take 2 tablets by mouth once daily predniSONE 20 mg Tab 40 mg = 2 tab(s), Oral, Daily, X 5 day(s), # 10 tab(s), Refills(s) 0, Pharmacy: [id number], 168, cm, 07/28/21 13:24:00 EDT, Height/Length Dosing, 87.2, kg, 07/28/21 13:24:00 EDT, Weight Dosing Start Date: 07/28/21 Stop Date: 08/02/21 Status: Ordered Refresh (20 sources) Start: 07-27-2020 take 1 drop(s) into the eye(s) four times daily Refresh 1 drop(s), Eye-Both, QID, Dry eyes Start Date: 07/27/20 Status: Ordered rOPINIRole 2 mg oral tablet (20 sources) Nonergot Dopamine Agonist Start: 07-16-2021 take 2 tablets by mouth twice daily, then take 1-2 tablets by mouth twice daily ropinirole 2 mg Tab 4 mg = 2 tab(s), Oral, BID, take 1-2 po bid, # 120 tab(s), Refills(s) 11, Pharmacy: [id number], 168, cm, 07/12/21 11:04:00 EDT, Height/Length Dosing, 89.3, kg, 07/12/21 11:04:00 EDT, Weight Dosing Start Date: 07/16/21 Status: Ordered Start: 08-07-2020 take 1 tablet by jaden twice daily ropinirole 2 mg Tab 2 mg = 1 tab(s), Oral, BID, # 60 tab(s), Refills(s) 11, Pharmacy: [facility] #[id number], 170, cm, 08/07/20 10:46:00 EDT, Height/Length Dosing, 90.4, kg, 08/07/20 10:53:00 EDT, Weight Dosing Start Date: 08/07/20 Status: Ordered Requip 2 MG TABS Quantity: 0 Refills: 0 Ordered: 04-Nov-2020 DO Active Stiolto Respimat 2.5 mcg-2.5 mcg inhalation aerosol (10 sources) Start: 07-02-2021 Stiolto Respim at 2.5 mcg-2.5 mcg inhalation aerosol = 2 puff(s), Inhalation, q24hr, # 2 EA, Refills(s) 0, samples given to patient (Rx) Start Date: 07/02/21 Status: Ordered Start: 04-19-2021 Stiolto Respim at 2.5 mcg-2.5 mcg inhalation aerosol = 2 puff(s), Inhalation, q24hr, # 2 EA, Refills(s) 0, samples given to patient (Rx) Start Date: 04/19/21 Status: Ordered Start: 12-21-2020 Stiolto Respim at 2.5 mcg-2.5 mcg inhalation aerosol = 2 puff(s), Inhalation, q24hr, # 2 EA, Refills(s) 0, samples given to patient (Rx) Start Date: 12/21/20 Status: Ordered traMADol hydrochloride 50 mg oral tablet (4 sources) Opioid Agonist Start: 07-12-2022 take 0.5-1 tablets by mouth twice daily as needed for pain traMADOL 50 mg Tab See Instructions, 1/2 to 1 tab po bid prn severe pain, # 12 tab(s), Refills(s) 0, Pharmacy: [id number], 168, cm, 07/11/22 15:36:00 EDT, Height/Length Dosing, 90, kg, 07/11/22 15:36:00 EDT, Weight Dosing Start Date: 07/12/22 Status: Ordered triamcinolone acetonide 1 mg/ml topical cream (20 sources) Corticosteroid Start: 03-09-2023 triamcinolone Top 0.1% Crm 15 gram 1 elva, Topical, BID, 30 gram, Refill(s) 11, [id number], 164, cm, 01/09/23 16:01:00 EDT, Height/Length Dosing, 86.6, kg, 01/09/23 16:01:00 EDT, Weight Dosing Start Date: 03/09/23 Status: Ordered Start: 12-11-2020 triamcinolone topical 0.1% cream 1 elva, Topical, BID, 30 gm, Refill(s) 5, [facility][id number], 165.7, cm, 12/09/20 14:23:00 EDT, Height/Length Dosing, 72.7, kg, 12/09/20 14:23:00 EDT, Weight Dosing Start Date: 12/11/20 Status: Ordered Start: 12-11-2020 triamcinolone topical 0.1% cream 1 elva, Topical, BID, 30 gm, Refill(s) 5, [id number], 165.7, cm, 12/09/20 14:23:00 EDT, Height/Length Dosing, 72.7, kg, 12/09/20 14:23:00 EDT, Weight Dosing Start Date: 12/11/20 Status: Ordered Completed/Discontinued Medications Medication Drug Class(es) Dates Sig (Normalized) Sig (Original) albuterol HFA 90 mcg/inh MDI (20 sources) Start: 07-08-2020 take 1 dose by inhalation every four hours albuterol HFA 90 mcg/inh MDI 2 puff(s), Inhalation, q4hr for wheezing, 1 EA, Refill(s) 11, [id number], 170, cm, 07/08/20 10:28:00 EDT, Height/Length Dosing, 91.8, kg, 07/08/20 10:28:00 EDT, Weight Dosing Start Date: 07/08/20 Status: Ordered Docusate (1 source) Dulcolax Stool Softener CAPS Quantity: 0 Refills: 0 Ordered: 04-Nov-2020 DO Active esomeprazole 40 mg delayed release oral capsule (1 source) Proton Pump Inhibitor Start: 01-09-2006 NEXIUM 40 MG CAP Take one(1) tablet daily. 0 01/09/2006 Active Comment on above: Take one(1) tablet d aily. furosemide 40 mg oral tablet (1 source) Loop Diuretic Start: 01-09-2006 LASIX 40 MG TAB Take one(1) tablet daily if needed 0 01/09/2006 Active Comment on above: Take one(1) tablet d aily if needed [facility] Prescription (7 sources) Start: 03-31-2023 [facility] Prescription Misc DME Prescription, See Instructions, 1 EA, 0, Wheelchair, Supply Start Date: 03/31/23 Status: Ordered microencapsulated potassium chloride 20 meq extended release oral tablet (1 source) Start: 01-09-2006 K-DUR 20 MEQ TAB Take one(1) tablet daily if needed 0 01/09/2006 Active Comment on above: Take one(1) tablet d aily if needed Payers Date Payer Category Payer Unknown [employer] [facility] MED PLUS [id number] 2006-2010 PPO [id number] 1959 Medicare [id number] 1959 Unknown [id number] 1945 Unknown [id number] 1945 Unknown [id number] 2.16.840.1.942175.3.579.2.125 9 1945 Unknown [id number] 2.16.840.1.632165.3.579.2.727 1945 Unknown [id number] 2.16.840.1.416558.3.579.2.727 1945 Unknown [id number] 2.16.840.1.178837.3.579.2.727 1945 Unknown [id number] 2.16.840.1.920500.3.579.2.727 1945 Unknown [id number] 2.16.840.1.336621.3.579.2.727 1945 Unknown [id number] 2.16.840.1.665560.3.579.2.727 1945 Unknown [id number] 2.16.840.1.594152.3.579.2.727 1945 Unknown [id number] 2.16.840.1.149052.3.579.2.727 1946 Unknown [id number] 2.16.840.1.690225.3.579.2 1945 Unknown [id number] 2.16.840.1.159286.3.579.2 1945 Unknown [id number] 2.16.840.1.636536.3.579.2 1945 Unknown [id number] 2..840.1.303335.3.579.2 1945 Unknown [id number] 2..840.1.439760.3.579. 1945 Unknown [id number] 2..840.1.809230.3.579. 1945 Unknown [id number] 2..840.1.650401.3.579. 1945 Unknown [id number] 2..840.1.405989.3.579. 1945 Unknown [id number] ..840.1.842708.3.579. 1945 Unknown [id number] 2..840.1.847215.3.579.2 1945 Unknown [id number] 2..840.1.247425.3.579.2 1945 Unknown [id number] 2..840.1.320188.3.579.2 1945 Unknown [id number] 2.16.840.1.389336.3.579.2 1945 Unknown [id number] 2.16.840.1.815447.3.579.2 1945 Unknown [id number] 2.16.840.1.446043.3.579. 1945 Unknown [id number] 2.16.840.1.974957.3.579.2.727 1945 Unknown [id number] 2.16.840.1.169412.3.579.2.727 1945 Unknown [id number] 2.16.840.1.257134.3.579.2.727 Unknown Plan of Treatment Date Care Activity Detail Author Start: 01-15-2024 ambulatory Amb[facility] Start: 08-22-2023 ambulatory Ambulatory Facility[facility] Start: 12-09-2020 [facility], Provider: Bashir Rivera, Status: Pen, Time: 9:30 AM [facility], Provider: Bashir Rivera, Status: Mohinder, Time: 9:30 AM [facility] Start: 11-11-2020 Influenza vaccination INFLUENZ A (Season Ended) [facility] Start: 03-20-2011 LIPID SCREEN LIPID SCREEN [facility] Start: 2010 ADVANCE DIRECTIVE DISCUSSION ADVANCE DIRECTIVE DISCUSSION [facility] Start: 2010 BONE DENSITY BONE DENSITY [facility] Start: 2010 PNEUMOVAX AGE 65 AND OVER WITH 5YR LOOKBACK (#1) PNEUMOVAX AGE 65 AND OVER WITH 5YR LOOKBACK (#1) [facility] Start: 03-20-2009 DIABETES SCREEN DIABETES SCREEN [facility] Start: 05-27-1995 Screening for malign ant neoplasm of colon [facility] Start: 05-27-1995 SHINGRIX VACCINE (1 of 2) SCOTT GRIX VACCINE (1 of 2) [facility] Start: 1964 Urine microalbumin profile DTAP,TDAP,TD (1 - Tdap) [facility] Start: 05-27-1963 HEPATITIS C SCREENING HEPATITIS C SC JAYLON [facility] Start: 1957 Adult depression screening assessment DEPRESSION SCREENING [facility] Start: 1957 COVID-19 VACCINE (1) COVID-19 VACCIN E (1) [facility] Problems Active Problems Problem Classification Problem Date Documented Da te Episodic/Chronic Abdominal hernia (20 sources) Hernia of abdominal wall; 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] 10-13-2020 Episodic Abdominal pain (20 sources) Generalized abdominal pain 12-27-2019 Episodic Acute cerebrovascular disease (20 sources) Cerebrovascular accident 08-31-2020 Chronic Comment on above: left arm is weaker t hen right Adjustment disorders (20 sources) Adjustment disorder; Translations: [Adjustment disorder, unspecified] Onset: 3 Chronic Administrative/social admission (1 source) Support system deficit; Translations: [Other problems related to care provider dependency] Onset: 3 Episodic Allergic reactions (20 sources) 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 compound 01-06-2020 Episodic Blindness and vision defects (1 source) Disorder of vision; Translations: [Problems with sight] Chronic Cancer; other and unspecified primary (1 source) H/O: malignant neoplasm; Translations: [Personal history of unspecified malignant neoplasm] Episodic Chronic kidney disease (6 sources) Chronic kidney disease stage 3A ; Translations: [Chronic kidney disease, stage 3a] Onset: 4 Chronic Comment on above: added per 06/26/2023 query response. Chronic obstructive pulmonary disease and bronchiectasis (20 sources) Panacinar emphysema; Translations: [Panlobular emphysema] Onset: 2 Chronic Chronic obstructive pulmonary disease and bronchiectasis (20 sources) Bronchitis 12-27-2019 Episodic Conditions associated with dizziness or vertigo (20 sources) Dizziness 04-08-2020 Episodic Esophageal disorders (20 sources) Gastroesophageal reflux disease; Translations: [Gastroesophageal reflux disease without esophagitis] Onset: 2 05-10-2019 Chronic Essential hypertension (20 sources) Essential hypertension; Translations: [Essential (primary) hypertension] Onset: 2 Chronic Genitourinary symptoms and ill-defined conditions (20 sources) Mixed incontinence; Translations: [Incontinence] Onset: 2 Chronic Genitourinary symptoms and ill-defined conditions (20 sources) Abnormal urinalysis; Translations: [History of urinary tract infection] Onset: 2 10-13-2020 Episodic Hypertension with complications and secondary hypertension (5 sources) 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 Immunizations and screening for infectious disease (4 sources) Encounter for screening for other viral diseases; Translations: [ENC SCREENING FOR OTH VIRAL DZ] Onset: 0 Episodic Mood disorders (5 sources) Mild recurrent major depression; Translations: [Major depressive disorder, recurrent, mild] Onset: 4 Chronic Comment on above: added per 06/26/2023 query response. Mycoses (20 sources) Candidiasis of mouth; Translations: [Candidal stomatitis] Onset: 2 Episodic Nonspecific chest pain (20 sources) Chest pain; Translations: [Chest pain, unspecified] Onset: 2 01-12-2021 Episodic Osteoarthritis (20 sources) Osteoarthritis of left knee joint; Translations: [Osteoarthrosis, localized, primary, lower leg] 12-27-2019 Chronic Other bone disease and musculoskeletal deformities (20 sources) Segmental and somatic dysfunction; Translations: [Segmental and somatic dysfunction of lower extremity] Onset: 3 Episodic Other bone disease and musculoskeletal deformities (20 sources) Cervical somatic dysfunction 03-16-2022 Episodic Other bone disease and musculoskeletal deformities (20 sources) Somatic dysfunction of abdominal region 03-16-2022 Episodic Other bone disease and musculoskeletal deformities (20 sources) Somatic dysfunction of lower limb 03-16-2022 Episodic Other bone disease and musculoskeletal deformities (20 sources) Somatic dysfunction of lumbar region 03-16-2022 Episodic Other bone disease and musculoskeletal deformities (20 sources) Somatic dysfunction of occipitocervical region 03-16-2022 Episodic Other bone disease and musculoskeletal deformities (20 sources) Somatic dysfunction of rib 03-16-2022 Episodic Other bone disease and musculoskeletal deformities (20 sources) Somatic dysfunction of sacral spine 03-16-2022 Episodic Other bone disease and musculoskeletal deformities (20 sources) Somatic dysfunction of thoracic region 03-16-2022 Episodic Other circulatory disease (1 source) H/O: hypertension; Translations: [Personal history of other diseases of circulatory system] Episodic Other circulatory disease (20 sources) History of cerebrovascular accident; Translations: [Personal history of transient ischemic attack (TIA), and cerebral infarction without residual deficits] 10-05-2018 Episodic Other congenital anomalies (20 sources) 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-2022 Chronic Other connective tissue disease (1 source) H/O: arthritis; Translations: [Personal history of arthritis] Episodic Other connective tissue disease (20 sources) Pain in left lower limb; Translations: [Pain in left leg] Onset: 2 Episodic Other diseases of bladder and urethra (8 sources) Detrusor overactivity; Translations: [Overactive bladder] Onset: 2 Chronic Other diseases of bladder and urethra (20 sources) Overactive bladder 07-13-2020 Chronic Other diseases of bladder and urethra (20 sources) Urethral stricture 09-23-2019 Episodic Other ear and sense organ disorders (20 sources) Bilateral hearing loss 10-03-2018 Chronic Other ear and sense organ disorders (20 sources) Does use hearing aid 05-14-2019 Episodic Other gastrointestinal disorders (20 sources) Irritable bowel syndrome characterized by constipation; Translations: [Irritable bowel syndrome with constipation] Onset: 2 05-05-2020 Chronic Other gastrointestinal disorders (1 source) Constipation, unspecified; Translations: [CONSTIPATION UNSPECIFIED] Onset: 0 Episodic Other gastrointestinal disorders (1 source) Disorder of digestive system; Translations: [Other digestive problems] Episodic Other gastrointestinal disorders (20 sources) Constipation 01-28-2020 Episodic Other hereditary and degenerative nervous system conditions (20 sources) Restless legs; Translations: [Restless legs syndrome] Onset: 2 09-09-2019 Chronic Other hereditary and degenerative nervous system conditions (1 source) Impaired cognition; Translations: [Mild cognitive impairment, so stated] Onset: 4 Chronic Other lower respiratory disease (1 source) Abnormal breathing; Translations: [Respiratory abnormality, unspecified] Episodic Other lower respiratory disease (20 sources) Dyspnea on exertion 10-13-2020 Episodic Other lower respiratory disease (20 sources) 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-2016 Episodic Other lower respiratory disease (20 sources) Rib pain 12-27-2019 Episodic Other lower respiratory disease (9 sources) Disorder of diaphragm; Translations: [Disorders of diaphragm] Onset: 3 Episodic Other lower respiratory disease (2 sources) Disorder of lung; Translations: [Other disorders of lung] Onset: 3 Episodic Other nervous system disorders (20 sources) Peripheral nerve disease 12-09-2020 Chronic Other nervous system disorders (3 sources) Polyneuropathy; Translations: [Polyneuropathy, unspecified] Onset: 3 Chronic Other nervous system disorders (1 source) Numbness and tingling sensation of skin; Translations: [Disturbance of skin sensation] Episodic Other nervous system disorders (20 sources) Tremor 10-03-2018 Episodic Other nervous system disorders (4 sources) Impaired cognition 06-26-2023 Episodic Comment on above: noted in 04/24/2023 Neurology Consult Note page 1. added per OP CDI policy. Other non-traumatic joint disorders (1 source) Pain in unspecified knee; Translations: [Knee pain] Episodic Other non-traumatic joint disorders (20 sources) Hip pain 08-07-2020 Episodic Other nutritional; endocrine; and metabolic disorders (20 sources) Body mass index 30+ - obesity 05-31-2021 Chronic Other nutritional; endocrine; and metabolic disorders (20 sources) Obesity; Translations: [Other obesity due to excess calories] Onset: 2 05-05-2020 Chronic Other nutritional; endocrine; and metabolic disorders (14 sources) Obese class I; Translations: [Body mass index (BMI) 30.0-30.9, adult] Onset: 2 Chronic Other nutritional; endocrine; and metabolic disorders (2 sources) Overweight in adulthood with body mass index of 25 or more but less than 30; Translations: [Body mass index (BMI) 29.0-29.9, adult] Onset: 3 Episodic Other upper respiratory infections (9 sources) Viral upper respiratory tract infection 02-26-2021 Episodic Peripheral and visceral atherosclerosis (20 sources) Atherosclerosis of aorta; Translations: [Atherosclerosis of aorta] Onset: 2 07-12-2021 Chronic Pulmonary heart disease (20 sources) Idiopathic pulmonary arterial hypertension ; Translations: [Primary pulmonary hypertension] Onset: 6 Chronic Residual codes; unclassified (20 sources) Obstructive sleep apnea syndrome; Translations: [Obstructive sleep apnea (adult) (pediatric)] Onset: 3 Chronic Residual codes; unclassified (4 sources) H/O: Disorder; Translations: [Other specified personal history presenting hazards to health] Onset: 2 Episodic Residual codes; unclassified (5 sources) Edema; Translations: [Edema, unspecified] Onset: 2 Episodic Residual codes; unclassified (13 sources) Patient encounter status; Translations: [Other specified health status] Onset: 2 Episodic Residual codes; unclassified (20 sources) Edema of lower extremity 12-27-2019 Episodic Residual codes; unclassified (20 sources) Passive smoker 12-27-2019 Episodic Residual codes; unclassified (20 sources) Swelling - edema - symptom 10-13-2020 Episodic Residual codes; unclassified (1 source) Refused procedure - parent's wish; Translations: [Procedure and treatment not carried out because of patient's decision for other reasons] Onset: 2 Episodic Residual codes; unclassified (20 sources) Insomnia; Translations: [Insomnia, unspecified] Onset: 3 Episodic Residual codes; unclassified (5 sources) Amnesia; Translations: [Other amnesia] Onset: 4 Episodic Comment on above: noted in 04/24/2023 Neurology Consult Note page 1. added per OP CDI policy. Respiratory failure; insufficiency; arrest (adult) (5 sources) Chronic hypoxemic respiratory failure; Translations: [Chronic respiratory failure with hypoxia] Onset: 4 Chronic Comment on above: added per 06/26/2023 query response. Screening and history of mental health and substance abuse codes (20 sources) Ex-smoker 09-23-2019 Episodic Spondylosis; intervertebral disc disorders; other back problems (20 sources) Degeneration of cervical intervertebral disc; Translations: [Other cervical disc degeneration, unspecified cervical region] Onset: 3 04-12-2019 Chronic Spondylosis; intervertebral disc disorders; other back problems (20 sources) Backache; Translations: [Cervical radiculopathy] Onset: 2 12-27-2019 Episodic Unclassified (1 source) PMH - PAST MEDICAL HISTORY OF 03-20-2006 Unclassified (20 sources) Active living will 05-05-2020 Unclassified (20 sources) Extended spectrum beta-lactamase producing bacteria carrier Onset: 1 05-19-2021 Comment on above: Possible ESBL + urin e 03/20/2021. Escherichia coli ESBL E coli in urine 11/08/2020 Unclassified (20 sources) Housing, local environment and transport finding 05-31-2021 Unclassified (20 sources) Chronic disease - care arrangement 09-29-2021 Urinary tract infections (2 sources) Urinary tract infectious disease; Translations: [Urinary tract infection, site not specified] Onset: 4 Episodic Past or Other Problems Problem Classification Problem Date Documented Da te Episodic/Chronic Other non-epithelial cancer of skin (2 sources) Basal cell carcinoma of face; Translations: [Basal cell carcinoma of skin of unspecified parts of face] Onset: 08-05-2010 08-05-2010 Episodic Unclassified (20 sources) Patient encounter status 05-05-2020 Procedures Date Procedure Procedure Detail Performing Clinician Start: 07-04-2023 Injection of nerve r oot of sacral spine using fluoroscopic guidance Volve Comment on above: 100% relief Start: 03-13-2023 Injection given ROMELIA LENNON Comment on above: given by pain manage ment Start: 08-23-2022 Injection of nerve r oot of lumbar spine using fluoroscopic guidance Volve Comment on above: R L4/L5 L5/S1 90% re lief Start: 06-06-2022 Injection of sacroil iac joint using fluoroscopic guidance Volve Comment on above: R SIJ 90% relief for couple days Start: 06-07-2021 Cystoscopy Reyes BERG Start: 09-07-2020 Hernia repair Aide BALL Start: 08-03-2020 Injection of therape utic substance into bladder wall Aide BALL Start: 06-08-2020 Injection of sacroil iac joint using fluoroscopic guidance Aide BALL Comment on above: Right SIJ 50% relief Start: 11-22-2019 Colonoscopy Aide BALL Start: 09-09-2019 Injection of therape utic substance into bladder wall Aide BALL Start: 04-17-2019 Extraction of cataract Aide BALL Start: 12-03-2018 Cystoscopy Aide BALL Start: 12-03-2018 Injection of therape utic substance into bladder wall Aide BALL Start: 08-29-2016 left total knee arthroplasty Aide BALL Appendectomy Aide zelaya Work Phone: Appendectomy Aide CH[facility]ERS [facility] Back Surgery Aide CHILDERS [facility] Corns and callus (disorder) Aide BALL Extraction of cataract Kirk BALL H/O: artificial joint S/P knee replacemen t Crow Gaona Implantation of join t prosthesis Aide Ball Work Phone: Intestinal obstructi on (disorder) Aide BALL Ligation of fallopia n tube Aide BALL mole removal 2 Aide ZELAYA Comment on above: face under nose mole removal 3 [facility] Comment on above: face under nose mole removal 4 [facility] Comment on above: face under nose mole removal 5 [facility] Comment on above: face under nose mole removal 6 [facility] TERAN Y Comment on above: face under nose Reduction mammoplasty Yogi BALL Tonsillectomy Aide Abreu [facility] Work Phone: Results Test Name Value Interpretation Reference Range Facil ity Ambulatory Visit Summaryon 0 07-31-2023 Ambulatory Visit Summary OSIRIS HERRERA :1945 Visit Date:07/31/2023 Ambulatory Visit Instructions Your Diagnosis Incontinence without sensory awareness These Are Your Goals Reduce exacerbations of COPD, will understand benefits to daily treatment of COPD. Interventions: 10/12/21 Fill Rx for Rescue pack and call CN if starts medications - Done Start Water aerobic exercises beginning 01/08/19 2 days per week to include water walking - Done Use inhaler as prescribed by PCP - Done Use nebulizer machine as needed for SOB for COPD. - Progressing Will have improvement in lower leg swelling Interventions: 06/08/21 Patient is going to try to return to water aerobics once per week, - Not done Decrease sodium intake to 2000 mg daily, do not use salt shaker. - Progressing Keep appointment with Dr. Ball on 10/13/20 at 0920 - Done Keep legs elevated when sitting - Progressing Weigh daily, record and notify CN of 3# weight gain in day or %3 over a week. - Not done Reduce frequency of Urinary Tract infections Interventions: Botox injections for urinary incontinence every 6 months as needed. - Done Call office at first signs and symptoms of UTI for urinalysis. - Progressing Drink 64 oz of fluids each day to stay hydrated. - Progressing Go to restroom at first sign of urinary urge and not hold. - Progressing See urologist as needed. - Progressing Your Care Team Attending Physician - SAJI JOHNSON, PRESTON Schwab Primary Care Physician - Dakotah Gallardo DO This Is Your Medications List Misc Prescription (Handicap Placard) Misc Prescription (Misc DME Prescription) Misc Prescription (nebulizer supplies) acetaminophen (Tylenol) acetaminophen-oxycod one (acetaminophen-oxyco done 325 mg-5 mg Tab) amlodipine (amLODIPine 5 mg Tab) bisacodyl (Dulcolax Tab-EC) gabapentin (gabapentin 100 mg Cap) hydrochlorothiazide- triamterene (Maxzide-25 oral tablet) omeprazole (omeprazole 20 mg Cap-) triamcinolone topical (triamcinolone Top 0.1% Crm 15 gram) Procedures Performed Injection of nerve root of sacral spine using fluoroscopic guidance (07/04/2023), Injection given (2023), Injection of nerve root of lumbar spine using fluoroscopic guidance (08/23/2022), Injection of sacroiliac joint using fluoroscopic guidance (06/06/2022), Cystoscopy (06/07/2021), Hernia repair (09/07/2020), Injection of therapeutic substance into bladder wall (08/03/2020), Injection of sacroiliac joint using fluoroscopic guidance (06/08/2020), Colonoscopy (11/22/2019), Injection of therapeutic substance into bladder wall (09/09/2019), Cataract extraction (04/17/2019), Cystoscopy (12/03/2018), Injection of therapeutic substance into bladder wall (12/03/2018), left total knee arthroplasty (08/29/2016), Appendectomy, Back Surgery, Bowel obstruction, Breast reduction, CE - Cataract extraction, Corns and callus, mole removal, Tubal ligation. Discharge Vitals Temperature (Temporal Artery) 36.6 ?C Heart Rate (Peripheral) 96 Respiratory Rate 16 Blood Pressure 120/70 Height 168 cm Height 66 in Weight 84 kg Weight 184.8 lb BMI 29.76 What to do next Scheduled Follow-Up Appointments Monday 9:00 AM EDT With: Dakotah Gallardo DO Where: [facility] [address] [place] [address]-\.br\ Medications\.br\ What How Much When Why Instructions\.br\ Unchanged acetaminophen (Tylenol) 500 Milligram By Mouth Every 6 hours\.br\ Unchanged acetaminophen-oxyc odone (acetaminophen-oxy codone 325 mg-5 mg Tab) 1 Tablets By Mouth 2 times a day\.br\ Unchanged amlodipine (amLODIPine 5 mg Tab) 1 Tablets By Mouth Every day\.br\ Unchanged bisacodyl (Dulcolax Tab-EC) 2-3 tabs By Mouth Every day adjusts for constipation concerns \.br\ Unchanged gabapentin (gabapentin 100 mg Cap) 2 Capsules By Mouth 3 times a day DDD (degenerative disc disease), cervical Restless leg Acute low back pain with sciatica\.br\ Unchanged hydrochlorothiazid e-triamterene (Maxzide-25 oral tablet) 1 Tablets By Mouth Every day\.br\ Unchanged Misc Prescription (Handicap Placard) See instructions Expires in 5 years \.br\ Unchanged Misc Prescription (Misc DME Prescription) See instructions Wheelchair \.br\ Unchanged Misc Prescription (nebulizer supplies) See instructions nebulizer supplies dx J44.9 \.br\ Unchanged omeprazole (omeprazole 20 mg Cap-DR) 1 Capsules By Mouth Every day Chronic GERD\.br\ Unchanged triamcinolone topical (triamcinolone Top 0.1% Crm 15 gram) 1 Application Topical 2 times a day\.br\ Allergies\.br\ Chocolate (Anaphylaxis)\.br\ Adhesive Bandage (Itching, Rash)\.br\ aspirin (Nausea)\.br\ iodinated radiocontrast dyes (hives, Unknown)\.br\ penicillins (Itching, Rash)\.br\ sulfamethoxazole (Swelling)\.br\ Problems\.br\ Ongoing - Any problem that you are currently receiving treatment for.\.br\ 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\.br\ Bilateral hearing loss\.br\ Chronic respiratory failure with hypoxia\.br\ DDD (degenerative disc disease), cervical\.br\ Dependent for transportation\.br \ Edema\.br\ Elevated diaphragm\.br\ Emphysema/COPD\.br \ Enrolled in chronic care management\.br\ Former smoker\.br\ Generalized osteoarthritis\.br \ GERD (gastroesophageal reflux disease)\.br\ History of stroke\.br\ HTN (hypertension)\.br \ 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\.br\ Incontinence without sensory awareness\.br\ Insomnia\.br\ Irritable bowel syndrome with predominant constipation\.br\ Leg pain, left\.br\ Lumbar radiculopathy, right\.br\ Major depressive disorder, recurrent, mild\.br\ Memory loss\.br\ Mild cognitive impairment\.br\ Mixed incontinence\.br\ OAB (overactive bladder)\.br\ Obesity due to excess calories\.br\ Other urethral stricture, female\.br\ Pain of right sacroiliac joint\.br\ Patient has healthcare proxy and living will\.br\ Peripheral neuropathy\.br\ RLS (restless legs syndrome)\.br\ S/P knee replacement\.br\ Severe obstructive sleep apnea\.br\ Somatic dysfunction of abdominal region\.br\ Somatic dysfunction of cervical region\.br\ Somatic dysfunction of lower extremities\.br\ Somatic dysfunction of lumbar region\.br\ Somatic dysfunction of rib cage region\.br\ Somatic dysfunction of sacral spine\.br\ Somatic dysfunction of thoracic region\.br\ Stage 3a chronic kidney disease (CKD)\.br\ Thoracic aorta atherosclerosis\.b r\ Tremor\.br\ Wears hearing aid in both ears\.br\ Historical - Any problem that you are no longer receiving treatment for.\.br\ Abdominal pain, generalized\.br\ Abnormal urinalysis\.br\ Body mass index (BMI) of 31.0-31.9 in adult\.br\ Bronchitis with bronchospasm\.br\ Cervical radiculopathy\.br\ Chest pain\.br\ Constipation\.br\ Dizziness\.br\ WINTERS (dyspnea on exertion)\.br\ Exposure to second hand smoke\.br\ Frequent urination\.br\ Hernia of abdominal wall\.br\ History of UTI\.br\ Leg edema\.br\ Pain in back\.br\ 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\.br\ Rib pain on right side\.br\ Right hip pain\.br\ Screening mammogram, encounter for\.br\ Urinary urgency\.br\ Patient Survey\.br\ You may receive a survey via text or e-mail asking about your office visit. Please share your experience with us by completing your survey. We appreciate your feedback and thank you for choosing us for your care.\.br\ \.br\ [facility] 07-31-2023 Lab Reports [id number]# 1.00TIFF Normal [facility] Reports [id number]# 1.00TIFF Normal [facility] Patient Educationon 07-31-19 24 Patient Education Caregiving Antibiotic Medicine, Adult Antibiotic medicines are used to treat infections caused by bacteria, such as strep throat and urinary tract infection (UTI). Antibiotic medicines will not work for colds, the flu (influenza), or other illnesses caused by viruses. These medicines work by killing the bacteria that are making you sick. Antibiotics can also have serious side effects. It is important that you take antibiotic medicines safely and only when needed. When do I need to take antibiotics? You may need antibiotics for: ? UTI. ? Strep throat. ? Bacterial sinusitis. ? Meningitis. This infection affects the spinal cord and brain. ? Serious lung infection. You may start antibiotics while your health care provider waits for your results from any tests for possible infection. Tests may include a culture of your throat, urine, blood, or mucus. Your health care provider may change or stop your antibiotic depending on your test results. When are antibiotics not needed? You do not need antibiotics for most common illnesses. These illnesses may be caused by a virus, not by bacteria. You do not need antibiotics for: ? The common cold. ? Influenza. ? Sore throat. ? Discolored mucus. ? Bronchitis. Antibiotics are not always needed for all infections caused by bacteria. Many of these infections clear up without antibiotic treatment. Do not ask for or take antibiotics when they are not necessary. How long should I take my antibiotic? You must take the entire prescription. Continue to take your antibiotic for as long as told by your health care provider. Do not stop taking it even if you start to feel better. If you stop taking it too soon: ? You may start to feel sick again. ? Your infection may become harder to treat. Each course of antibiotics needs a different amount of time to work. Some antibiotic courses last only a few days. Some last about a week to 10 days. In some cases, you may need to take antibiotics for a few weeks to completely treat your infection. What if I miss a dose? Try not to miss any doses of medicine. If you miss a dose, call your health care provider or pharmacist for advice. Sometimes it is okay to take the missed dose as soon as possible. Do not take double or extra doses. What are the risks of taking antibiotics? Antibiotics can cause: ? Allergic reactions. ? Nausea. ? Yeast infections. ? Liver problems. Antibiotics can also cause an infection called Clostridioides difficile (C. difficile or C. diff), which causes severe diarrhea. This infection happens when the antibiotics kill the healthy bacteria in your intestines. This allows C. diff to grow. C. diff needs to be treated right away. Let your health care provider know if: ? You develop diarrhea while taking an antibiotic. ? You develop diarrhea after you stop taking an antibiotic. C. diff infection can start weeks after stopping the antibiotic. Taking an antibiotic also puts you at risk for getting sick in the future with bacteria that do not respond to medicine (antibiotic-resistan t infection). Antibiotics can cause bacteria to change so that if the antibiotic is taken again, the medicine cannot kill the bacteria. These infections can be more serious and, in some cases, life-threatening. Do antibiotics affect control? control pills may not work while you are on antibiotics. If you are taking control pills, continue taking them as usual and use a second form of control, such as a condom, to avoid unwanted . Continue using the second form of control until your health care provider says you can stop. What else should I know about taking antibiotics? It is important for you to take antibiotics exactly as told. Make sure to: ? Take the correct amount of medicine at the same time each day. ? Ask your health care provider: ? How long to wait between doses. ? If your antibiotic should be taken with food. ? If there are any foods, drinks, or medicines that you should avoid while taking your antibiotics. ? If there are any side effects you should be aware of. ? Use only the antibiotics prescribed for you by your health care provider. Do not use antibiotics prescribed for someone else. ? Drink a large glass of water when taking your antibiotics. Drink enough fluid to keep your urine pale yellow. ? Ask your pharmacist for a syringe, cup, or spoon that properly measures your antibiotics. ? Throw away any leftover medicine. Follow these instructions at home: ? Take diyc-yjr-ijnknir and prescription medicines as told by your health care provider. ? Return to your normal activities as told by your health care provider. Ask your health care provider what activities are safe for you. ? Keep all follow-up visits as told by your health care provider. This is important. Contact a health care provider if: ? Your symptoms get worse. (more content not included)... [facility] Office/Clinic Noteon 07-31-2023 Urology Office/Clinic Note Chief Complaint Pt is having acute left flank pain that started 1 month ago HPI Staff 78 year old patient presents today for flank pain. Last seen in office 04/13/[address] Vega. Previous dx: OAB and mixed incontinence. PVR:0 Dysuria: denies Incomplete bladder emptying: denies Hematuria: denies Frequency: denies Urgency: yes Nocturia: 1-2 x a night Stream: steady stream Leaking: yes Post void dripping: denies Wearing pads/ Depends: wears depends on a daily basis Urge incontinence: yes Stress incontinence: yes when coughing and sneezing Incontinence without Sensory Awareness: denies Abdominal pain: denies Flank pain: left flank for about a month Sexual complaints: _ Review of Systems PHQ Score Initial Depression Screen Score: 0 SCORE no fever, chills, malaise, myalgia. no rash/lesions. no chest pain, palpitations, or SOB. no abdominal pain, nausea, vomiting. no unilateral calf swelling, redness, pain Physical Exam Vitals & Measurements T: 36.6 ?C(Temporal Artery) HR: 96(Peripheral) RR: 16 BP: 120/70 HT: 66 in HT: 168 cm WT: 84 kg WT: 184.8 lb BMI: 29.76 General: nontoxic, NAD Mouth: moist mucosa Lungs: normal respiratory effort Cardio: regular rate, good distal perfusion Abdomen: nondistended, no suprapubic distention or tenderness, +mild L CVA tenderness Neurologic: Grossly normal Skin: No rashes or suspicious lesions Assessment/Plan 1. UTI (urinary tract infection) (N39.0: Urinary tract infection, site not specified) c/o L flank pain. pt sees pain management for R sciatic pain. says this is very different. higher up, under ribs, and opposite side. denies classic UTI sx (dysuria, odor, cloudy urine, SP pain). explained that UTI sx change as we get older. 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 denies any systemic sx like fever, chills, malaise, myalgia, N/V. no gross hematuria. good po intake. UACS submitted at [facility] this weekend shows 100k Klebsiella. 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 therefore looks like FQ will be a good option. advised pt of rare but serious risk with fluoroquinolones for tendinitis/tendon rupture. avoid strenuous activity/heavy lifting while on med. if develops muscle/joint pain, dc med immediately and contact us. we agree benefits outweigh risks at this time. business objects clearance 39-56 depending on equation used. no dose adjustment needed. pt to call if sx persist after finishing abx and will need repeat UACS to ensure cleared and then if so, will need to consider imaging. otherwise if sx resolve completely then f/u as previously planned. Orders: ciprofloxacin, 500 mg = 1 tab(s), Oral, q12hr, X 7 day(s), # 14 tab(s), Refills(s) 0, Pharmacy: [facility]/pharmacy #[id number], 168, cm, 07/31/23 15:00:00 EDT, Height/Length Dosing, 84, kg, 07/31/23 15:00:00 EDT, Weight Dosing 16919 Measure Post Void residual urine and/or bladder capacity by US- non-imaging Body Mass Index (BMI) documented 3008F Current tobacco non-user 1036F Depression Screening Negative 3352F Influenza immunization status assessed 1030F Medication list documented in medical record 1159F Most recent diastolic blood pressure <80 mm Hg 3078F Patient screen for fall risk: no falls in last year or 1 fall with no injury in last year 1101F Review of all meds by a prescribing practitioner or clinical pharmacist documented in EHR 1160F Systolic BP <130 mm Hg (Most Recent) 3074F Urnls Dip Stick Auto w/o Microscopy POC 41397 Follow-up With When Contact Information SAJI JOHNSON, PRESTON Schwab, URL Only if needed [address] 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 Incontinence without sensory awareness Insomnia Irritable bowel syndrome with predominant constipation Leg pain, left Lumbar radiculopathy, right Major depressive disorder, recurrent, mild Memory loss Mild cognitive impairment Mixed incontinence OAB (overactive bladder) Obesity due to excess calories Other urethral stricture, female Pain of right sacroiliac joint Patient has healthcare proxy and living will Peripheral neuropathy RLS (restless legs syndrome) S/P knee replacement Severe obstructive sleep apnea Somatic dysfunction of abdominal region Somatic dysfunction of cervical region Somatic dysfunction of lower extremities Somatic dysfunction of lumbar region Somatic dysfunction of rib cage (more content not included)... [facility] Comment on above: Result Comment: Elec tronically Signed By: PRESTON LENNON PA-C\Date and Time Signed: 07/31/23 15:31 EDT Consent for Treatmenton 05 Consent for Treatment [id number] 7#1.00TIFF [facility] Consultation Noteon 07-17-19 Consultation Note Patient: OSIRIS HERRERA Age: 78 years Sex: Female : 1945 Associated Diagnoses: None Author: Marilu Cornell PA-C Subjective Chief complaint 07/17/2023 13:47 EDT Back Pain . Patient is a 78-year-old female. She presents today for follow-up after undergoing a right-sided sacroiliac joint injection. This was done on 07/04/2023 and at this time has given her 100% relief. She is feeling well and doing well. Between this injection and the previous epidural she does not have any pain, complaints or concerns. She is pleased. Health Status Allergies: Allergic Reactions (Selected) Severe Chocolate- Anaphylaxis. Severity Not Documented Adhesive Bandage- Rash and itching. Aspirin- Nausea. Iodinated radiocontrast dyes- Unknown and hives. Penicillins- Itching and rash. Sulfamethoxazole- Swelling., Allergies (6) Active Severity Reaction Chocolate Severe Anaphylaxis penicillins Rash, Itching sulfamethoxazole Swelling aspirin Nausea Adhesive Bandage Rash, Itching iodinated radiocontrast dyes Unknown, hives Current medications: (Selected) Prescriptions Prescribed Handicap Placard: Handicap Placard, See Instructions, 1 EA, 0, Expires in 5 years, Supply Maxzide-25 oral tablet: 1 tab(s), Oral, Daily, 90 tab(s), Refill(s) 4, [id number], 164, cm, 01/09/23 16:01:00 EDT, Height/Length Dosing, 86.6, kg, 01/09/23 16:01:00 EDT, Weight Dosing Misc DME Prescription: Misc DME Prescription, See Instructions, 1 EA, 0, Wheelchair, Supply amLODIPine 5 mg Tab: 5 mg = 1 tab(s), Oral, Daily, # 90 tab(s), Refills(s) 4, [id number], 169, cm, 03/31/23 13:47:00 EST, Height/Length Dosing, 83.6, kg, 03/31/23 13:47:00 EST, Weight Dosing gabapentin 100 mg Cap: 200 mg = 2 cap(s), Oral, TID, # 180 cap(s), Refills(s) 11, [id number], 169, cm, 03/31/23 13:47:00 EST, Height/Length Dosing, 83.6, kg, 03/31/23 13:47:00 EST, Weight Dosing nebulizer supplies: nebulizer supplies, See Instructions, 1 EA, 11, nebulizer supplies dx J44.9, [facility], Supply, 158, cm, 12/27/19 11:56:00 EDT, Height/Length Dosing, 88.6, kg, 12/27/19 11:56:00 EDT, Weight Dosing omeprazole 20 mg Cap-DR: 20 mg = 1 cap(s), Oral, Daily, # 90 cap(s), Refills(s) 4, [id number], 169, cm, 03/31/23 13:47:00 EST, Height/Length Dosing, 83.6, kg, 03/31/23 13:47:00 EST, Weight Dosing triamcinolone Top 0.1% Crm 15 gram: 1 elva, Topical, BID, 30 gram, Refill(s) 11, [id number] 164, cm, 01/09/23 16:01:00 EDT, Height/Length Dosing, 86.6, kg, 01/09/23 16:01:00 EDT, Weight Dosing Documented Medications Documented Dulcolax Tab-EC: 2-3 tabs, Oral, Daily, adjusts for constipation concerns, Refills(s) 0 Tylenol: Refills(s) 0 Problem list: All Problems Diaphragm paralysis / SNOMED CT 011679988 / Confirmed 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 / Confirmed Tremor / SNOMED CT 51139967 / Confirmed DDD (degenerative disc disease), cervical / SNOMED CT 197479536 / Confirmed Bilateral hearing loss / SNOMED CT 448292243 / Confirmed GERD (gastroesophageal reflux disease) / SNOMED CT 846540043 / Confirmed HTN (hypertension) / SNOMED CT 5057128696 / Confirmed Emphysema/COPD / SNOMED CT 7918311 / Confirmed History of stroke / SNOMED CT 4969925846 / Confirmed Former smoker / SNOMED CT 05309146 / Confirmed Other urethral stricture, female / SNOMED CT 109703737 / Confirmed Mixed incontinence / SNOMED CT 66779471 / Confirmed Wears hearing aid in both ears / SNOMED CT 469146313 / Confirmed Generalized osteoarthritis / SNOMED CT 812610967 / Confirmed 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 / SNOMED CT 0914737363 / Confirmed Irritable bowel syndrome with predominant constipation / SNOMED CT 4440764572 / Confirmed Lumbar radiculopathy, right / SNOMED CT 884831804 / Confirmed Patient has healthcare proxy and living will / SNOMED CT 7523560436 / Confirmed OAB (overactive bladder) / SNOMED CT 3766682369 / Confirmed Incontinence without sensory awareness / SNOMED CT 7923872769 / Confirmed Edema / SNOMED CT 596894775 / Confirmed Peripheral neuropathy / SNOMED CT 263175413 / Confirmed Leg pain, left / SNOMED CT 4423073149 / Confirmed Dependent for transportation / SNOMED CT 999139115 / Confirmed Thoracic aorta atherosclerosis / SNOMED CT 955336562 / Confirmed Enrolled in chronic care management / SNOMED CT 517899654 / Confirmed Obesity due to excess calories / SNOMED CT 9654013096 / Confirmed Elevated diaphragm / SNOMED CT 223352706 / Confirmed Pain of right sacroiliac joint / SNOMED CT 097118425 / Confirmed RLS (restless legs syndrome) / SNOMED CT 95246610 / Confirmed Somatic dysfunction of cervical region / SNOMED CT 2348799836 / Confirmed Somatic dysfunction of thoracic region / SNOMED CT 8221586667 / Confirmed Somatic dysfunction of lumbar region / SNOMED CT 0728675378 / Confirmed Somatic dysfunction of sacral spine / SNOMED CT 0952192038 / Confirmed Somatic dysfunction of lower extrem (more content not included)... [facility] Comment on above: Result Comment: Elec tronically Signed By: Aneta JOHNSON, Marilu\.br\Date and Time Signed: 07/17/23 14:23 EDT Office/Clinic Note-Physician on 07-17-2023 Office/Clinic Note-Physician [id number] 46#1.00TIFF [facility] Patient Correspondenceon Patient Correspondence [id number] 40#1.00TIFF [facility] Patient Correspondence [id number] 59#1.00TIFF [facility] Patient Correspondence [id number] 31#1.00TIFF [facility] Patient History Officeon Patient History Office [id number] 80#1.00TIFF [facility] Consent for Procedure/Surger yon 07-04-2023 Consent for Procedure/Surgery [id number] 7#1.00TIFF [facility] Consent for Treatmenton 06-12 Consent for Treatment [id number] #1.00TIFF [facility] Consultation Noteon 07-04-19 Consultation Note [id number] #1.00TIFF [facility] Discharge Instructionson Discharge Instructions [id number] 1#1.00TIFF [facility] IntraOperative Documentson 0 07-04-2023 IntraOperative Documents [id number] 3#1.00TIFF [facility] IntraOperative Documents [id number] 1#1.00TIFF [facility] IntraOperative Documents [id number] 6#1.00TIFF [facility] Main OR Intraoperative Recor don 07-04-2023 Main OR Intraoperative Record IntraOp Document Type FTPM Summary Primary Physician: Crow Gaona MD Finalized Date/Time: 07/04/23 08:32:57 Pt. Name: OSIRIS HERRERA /Sex: 1945 Female Med Rec #: [id number] Physician: Crow Gaona MD Financial #: [id number] Pt. Type: P Room/Bed: / Admit/Disch: 07/04/23 07:32:40 - Institution: Case Times FTPM Entry 1 Patient Times In Room 07/04/23 08:27:00 Out Room 07/04/23 08:32:00 Procedure Times Start 07/04/23 08:30:00 Stop 07/04/23 08:31:00 Anesthesia Times Last Modified By: Leydi Ferrell RN 07/04/23 08:32:51 Case Attendance FTPM Entry 1 Entry 2 Entry 3 Case Attendee Crow Gaona MD, RN, Leydi Espino RN, Oliva Law Role Performed Surgeon - Primary Artificial Fly Tier - Primary Scrub - Primary Time In 07/04/23 08:27:00 07/04/23 08:27:00 07/04/23 08:27:00 Time Out 07/04/23 08:32:00 07/04/23 08:32:00 07/04/23 08:32:00 Procedure SACROILIAC JOINT SACROILIAC JOINT SACROILIAC JOINT INJECTION(Right) INJECTION(Right) INJECTION(Right) Comments Last Modified By: Ghassan VILLALPANDO, Leydi Ferrell RN, Leydi Myrick RN 07/04/23 08:32:52 07/04/23 08:32:52 07/04/23 08:32:52 Entry 4 Case Attendee Blake MARTINEZ(R)Zuleyma Role Performed Nick Setter Time In 07/04/23 08:27:00 Time Out 07/04/23 08:32:00 Procedure SACROILIAC JOINT INJECTION(Right) Comments Last Modified By: Leydi Ferrell RN 07/04/23 08:32:52 Perioperative Protocols FTPM Pre-Care Text: Implements protective measures prior to operative or invasive procedure, confirms identity before the operative or invasive procedure, verifies operative procedure, surgical site, and laterality Entry 1 Procedure(s) SACROILIAC JOINT Patient Identity Birthday, ID Band INJECTION(Right) Verified (select at Check, Patient least 2): Participation Consents / H and P HandP, Surgery/Procedure Operative Site Present Verified Consent Marking Verified Surgical Site Yes Laterality Verified Yes Verified Procedure Verified Yes Correct Patient Yes Position Verified Availability Equipment, Medication, Prep Dry Yes Verified (If X-ray Applicable) PreOp Antibiotic No Time Out Leydi Ferrell RN, Srinivas VILLALPANDO, Jimenez Swain MD, Crow Perez, Blake RT(R), Zuleyma Time Out Complete 07/04/23 08:27:00 Outcomes Met? Yes Last Modified By: Leydi Ferrell RN 07/04/23 08:27:30 Post-Care Text: The patient is free from signs and symptoms of injury caused by extraneous objects Allergy Information FTPM Pre-Care Text: Verifies allergies Entry 1 Allergies Reviewed? Yes Allergies Reviewed Self/Patient With Outcomes Met? Yes Last Modified By: Leydi Ferrell RN 07/04/23 08:13:21 Post-Care Text: The patient received appropriate medication(s) safely administered during the perioperative period Surgical Procedures FTPM Entry 1 Procedure Description Procedure SACROILIAC JOINT Modifiers Right INJECTION Surgeon Description SIJI Primary Procedure Yes Primary Surgeon Jimenez BANSAL, Crow Perez Start 07/04/23 08:30:00 Stop 07/04/23 08:31:00 Anesthesia Type None Surgical Service Pain Management Wound Class 1 - Clean Last Modified By: Leydi Ferrell RN 07/04/23 08:32:53 General Case Data FTPM Pre-Care Text: Classifies surgical wound, implements aseptic technique, initiates traffic control Entry 1 Case Information OR Pain Proc Room Case Level Level 2 Wound Class 1 - Clean Specialty Pain Management Preop Diagnosis M46.1 Postop Same As Preop Yes Postop Diagnosis M46.1 Outcomes Met? Yes Last Modified By: Leydi Ferrell RN 07/04/23 08:27:42 Post-Care Text: The patient is free from signs and symptoms of infection Skin Assessment (Pre Procedure) FTPM Pre-Care Text: Implements protective measures to prevent skin/ tissue injury due to thermal or mechanical sources Evaluates for signs and symptoms of physical injury to skin and tissue Entry 1 Skin Integrity Intact, [place], Warm, and Skin Abnormality No Dry Outcomes Met? Yes Last Modified By: Leydi Ferrell RN 07/04/23 08:13:29 Post-Care Text: The patient is free from signs and symptoms of injury caused by extraneous objects Patient Positioning FTPM Pre-Care Text: Identifies physical alterations that require additional precautions for procedure-specific positioning, verifies presence of prosthetics or corrective devices, positions the patient, evaluates the patient for signs and symptoms of injury as a result of positioning Entry 1 Procedure SACROILIAC JOINT Body Position Prone INJECTION(Right) Feet Uncrossed? Yes Left Arm Position Resting at Side Right Arm Position Resting at Side Left Leg Position Extended Right Leg Position Extended Positioning Device Pillow Under Head Large, Safety Strap, Pillow Large Under Knees Press Points Checked Yes By Leydi Ferrell RN Outcomes Met? Yes Last Mo (more content not included)... [facility] Main OR Preoperative Recordo n 07-04-2023 Main OR Preoperative Record Holding Area Document Type FT Summary Primary Physician: Crow Gaona MD Finalized Date/Time: 07/04/23 07:49:47 Pt. Name: JAVIER OSIRISMARY Todd D.O.B./Sex: 1945 Female Med Rec #: [id number] Physician: Crow Gaona MD Financial #: [id number] Pt. Type: P Room/Bed: / Admit/Disch: 07/04/23 07:32:40 - Institution: Case Times Holding FTPM Pre-Care Text: Verifies consent for planned procedure, identifies individual values and wishes concerning care, includes family members in perioperative teaching Secures patient's records' belongings, and valuables, maintains patient's dignity and privacy, and maintains patient confidentiality Entry 1 In Holding 07/04/23 07:47:00 Outcomes Met? Yes Last Modified By: Nadja Corcoran RN 07/04/23 07:47:45 Post-Care Text: The patient participates in decisions affecting his or her perioperative plan of care The patient's right to privacy is maintained Surgery Checklist FTPM Entry 1 Patient Birthday, ID Band Procedure History and Physical, Identification: Check, Patient Verification: Surgical Consent, With Participation Patient NPO after Midnight: No Date/Time: 07/04/23 06:00:00 Personal Items: Cataract Lens Implant, Personal Items 2 rings Glasses, Jewelry Comment: Complaints of Pain: Yes Pain Comment: 06/20 right foot Operative Site Yes Marked By: jimenez Marking: Availability Equipment, X-Ray Verified: Does Patient Smoke No Patient states Yes Comment - Adult melida daughter postop adult Supervision supervision available Case Cancelled in No Holding Area see comments below for reason Last Modified By: Ndaja Corcoran RN 07/04/23 07:49:12 General Comments: water yogurt Finalized By: Nadja Corcoran RN Document Signatures Signed By: Nadja Corcoran RN 07/04/23 07:49 [facility] Operative Reporton Operative Report Patient: OSIRIS HERRERA Age: 78 years Sex: Female : 1945 Associated Diagnoses: None Author: Jimenez BANSAL, Crow Perez Procedure Procedure: Sacroiliiac Joint injection with Fluoroscopic Guidance - RIGHT- therapeutic Diagnosis: sacroiliitis Anesthesia: Local The patient was identified in the pre-op area. The procedure, including risks benefits and alternatives was discussed with the patient. The patient agreed to proceed. Informed consent was obtained and the site(s) marked. The patient was brought to the procedure room and placed in the prone position with padding under the abdomen to reduce lumbar lordosis. Time out was performed. The back was prepped and draped in sterile fashion with Chloraprep. Skin and subcutaneous tissues were anesthetized with 3mL of Lidocaine 2% through a 25G needle. A 22G spinal needle was then advanced under AP and oblique fluoroscopic guidance into the right sacroiliac joint. 0.5 mL of gadolinium-based contrast was injected demonstrating appropriate spread without vascular uptake. After confirmation of negative aspiration, 2mL of 0.5% bupivacaine and 40mg of methylprednisolone (40mg/1mL) were injected. The needle was removed and bandage applied. The patient was brought to the recovery area in stable condition and then monitored for an appropriate period of time. The patient was discharged home in good condition with post-procedure instructions. No apparent complications. Epidural injection procedure Physical Exam: vital signs Vital Signs 10/03/2016 10:44 EDT Heart Rate Monitored 59 bpm LOW SpO2 96 % 10/03/2016 10:44 EDT Systolic Blood Pressure 173 mmHg HI Diastolic Blood Pressure 85 mmHg Mean Arterial Pressure, Monitered 114 mmHg 10/03/2016 10:43 EDT Respiratory Rate 22 br/min HI 10/03/2016 10:37 EDT Heart Rate Monitored 61 bpm Respiratory Rate Monitored 16 br/min Systolic Blood Pressure 175 mmHg HI Diastolic Blood Pressure 108 mmHg HI Mean Arterial Pressure, Monitered 95 mmHg 10/03/2016 09:34 EDT Heart Rate Monitored 59 bpm LOW SpO2 98 % 10/03/2016 09:34 EDT Systolic Blood Pressure 146 mmHg HI Diastolic Blood Pressure 71 mmHg Mean Arterial Pressure, Monitered 96 mmHg 10/03/2016 09:33 EDT Temperature Oral 36.7 DegC 10/03/2016 09:31 EDT Respiratory Rate 16 br/min . Signature Line Electronically Signed By: Crow Gaona MD Date and Time Signed: 10/03/16 11:11 EDT No apparent complications. Epidural injection procedure Physical Exam: vital signs Vital Signs 07/04/2023 7:49 EDT Heart Rate Monitored 85 bpm SpO2 94 % 07/04/2023 7:47 EDT Systolic Blood Pressure 157 mmHg HI Diastolic Blood Pressure 82 mmHg Mean Arterial Pressure, Monitered 107 mmHg 07/04/2023 7:47 EDT Temperature Axillary 36.5 DegC 07/04/2023 7:46 EDT Respiratory Rate 15 br/min . [facility] Comment on above: Result Comment: Elec tronically Signed By: Crow Gaona MD\.br\Date and Time Signed: 07/04/23 08:31 EDT Pre-Visit Planningon 024 Pre-Visit Planning - From: Lexii Chester To: Dakotah Gallardo DO; Sent: 06/26/2023 11:53:00 EDT Subject: Pre-Visit Planning Due Date/Time: 06/26/2023 11:52:00 EDT Caller Name: OSIRIS HERRERA; Caller Number: [place] , [place] Dr. Gallardo. During a pre-visit planning chart review, I noted the following documentation in the medical record: ? Glomerular filtration rate (GFR): Based on your medical judgment, can you please clarify which, if any, of the following conditions are present? I can update the Chronic Problem List with your response if you would like. -Chronic Kidney Disease Stage 3a (GFR 45-59) -Chronic Kidney Disease Stage 2 (GFR 60-89) -Other (please specify): In responding to this request, please exercise your independent professional judgment. The fact that a question is asked does not imply that any particular answer is desired or expected. If you have any questions, please feel free to contact me at extension [phone]. Thank you! Lexii Chester LPN - From: LAURO VUONG To: Lexii Chester; Sent: 06/27/2023 07:46:24 EDT Subject: RE: Pre-Visit Planning Caller Name: OSIRIS HERRERA; Caller Number: H , M Chronic Kidney Disease Stage 3a (GFR 45-59) Normal [address] [place] [address] Pre-Visit Planning - From: Lexii Chester To: Dakotah Gallardo DO; Sent: 06/26/2023 13:00:02 EDT Subject: Pre-Visit Planning Due Date/Time: 06/26/2023 13:00:00 EDT Caller Name: OSIRIS HERRERA; Caller Number: H , M Il Dr. Gallardo. During a pre-visit planning chart review, I noted the following documentation in the medical record: Current Problem List: Anxiety with depression (Other anxiety disorders) and Adjustment disorder, unspecified. 09/16/2022 Office Visit Note: Adjustment reaction (F43.20: Adjustment disorder, unspecified). Chronic. Improving. I think her improved pain control, as well as improvement in her social life, has given her more purpose and she is handling this all much better. I encouraged her to continue with her progress. I did give her some feed back on how I would have liked to see her handle communication struggles with staff in the future. Not defending the staff - rather, explaining how she can best advocate for herself in the future. her daughter confirms that compared to five years ago, the patient is less patient. however, it does seem like the patient has improved at least somewhat in recent months. Continue to work on this. f/u PRN. 04/24/2023 Neurology Consult Note (page 3): Conclusions: Minimal depression and mild. Based on your medical judgment, can you please clarify which, if any, of the following conditions are present? I can update the Chronic Problem List with your response if you would like. Major Depressive Disorder, Single Episode ? Major depressive disorder, single episode, mild ? Major depressive disorder, single episode, moderate ? Major depressive disorder, single episode, severe without mention of psychotic behavior ? Major depressive disorder, single episode, severe specified as with psychotic behavior ? Major depressive disorder, single episode, in partial remission ? Major depressive disorder, single episode in full remission Major Depressive Disorder, Recurrent ? Major depressive disorder, recurrent, mild ? Major depressive disorder, recurrent, moderate ? Major depressive disorder, recurrent, severe without mention of psychotic behavior ? Major depressive disorder, recurrent, severe specified as with psychotic behavior ? Major depressive disorder, recurrent, in partial remission ? Major depressive disorder, recurrent, in full remission -Other (Please Specify): In responding to this request, please exercise your independent professional judgement. The fact that a question is asked does not imply that any particular answer is desired or expected. If you have any questions, please feel free to contact me at extension [phone]. Thank you! Lexii Chester LPN - From: LAURO VUONG To: Lexii Chester; Sent: 06/27/2023 07:47:28 EDT Subject: RE: Pre-Visit Planning Caller Name: OSIRIS HERRERA; Caller Number: H , M Major depressive disorder, recurrent, mild Normal [address] [place] [address] Pre-Visit Planning - From: Lexii Chester To: Dakotah Gallardo DO; Sent: 06/26/2023 13:11:06 EDT Subject: Pre-Visit Planning Due Date/Time: 06/26/2023 13:10:00 EDT Caller Name: OSIRIS HERRERA; Caller Number: H , M Il Dr. Gallardo. During a pre-visit planning chart review, I noted the following documentation in the medical record: Current Problem List: Emphysema/COPD (Panlobular emphysema), diaphragm paralysis, and elevated diaphragm. Current Medication List: albuterol, albuterol-ipratropiu m, and olodaterol-tiotropiu m. 05/03/2022 Pulmonary Function Test: SIX-MINUTE WALK TEST- A six-minute walk test was performed while the patient was ambulating on room air. The patient ambulated a total of 900 feet or 74% of predicted and had a drop in her oxygen saturation from 90% at baseline to 87% while ambulating on room air. This corrected with supplemental oxygen at two liters via nasal cannula. Based on your medical judgment, can you please clarify which, if any, of the following conditions are present? I can update the Chronic Problem List with your response if you would like. -Chronic respiratory failure with hypoxia -Other: In responding to this request, please exercise your independent professional judgment. The fact that a question is asked does not imply that any particular answer is desired or expected. If you have any questions, please feel free to contact me at extension [phone]. Thank you! Lexii Chester LPN - From: LAURO VUONG To: Lexii Chester; Sent: 06/27/2023 07:48:13 EDT Subject: RE: Pre-Visit Planning Caller Name: OSIRIS HERRERA; Caller Number: Sunita , M Chronic respiratory failure with hypoxia Normal [address] [place] [address] 06-09-19 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 Reason: Disease management Case Type: Chronic Care Management Risk Score: -- Case Status: Active (January 03, 2019) Date Assigned: December 19, 2018 Assigned By: Brice Stephenson RN Date Enrolled: January 03, 2019 Assigned Primary Personnel: Dereck Rosario RN Assigned Secondary Personnel: -- Case Physician: Dakotah Gallardo DO Problems Ongoing Adjustment reaction 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 Bilateral hearing loss COPD exacerbation DDD (degenerative disc disease), cervical Dependent for transportation Edema Elevated diaphragm Emphysema/COPD Enrolled in chronic care management Former smoker Generalized osteoarthritis GERD (gastroesophageal reflux disease) History of stroke HTN (hypertension) Incontinence without sensory awareness Insomnia Irritable bowel syndrome with predominant constipation Leg pain, left Lumbar radiculopathy, right Mixed incontinence OAB (overactive bladder) Obesity due to excess calories Oral thrush Other urethral stricture, female Pain of right sacroiliac joint Patient has healthcare proxy and living will Peripheral neuropathy RLS (restless legs syndrome) S/P knee replacement Severe obstructive sleep apnea Somatic dysfunction of abdominal region Somatic dysfunction of cervical region Somatic dysfunction of lower extremities Somatic dysfunction of lumbar region Somatic dysfunction of rib cage region Somatic dysfunction of sacral spine Somatic dysfunction of thoracic region Thoracic aorta atherosclerosis Tremor Wears hearing aid in both ears Historical Abdominal pain, generalized Abnormal urinalysis Body mass index (BMI) of 31.0-31.9 in adult Bronchitis with bronchospasm Cervical radiculopathy Chest pain Constipation Dizziness WINTERS (dyspnea on exertion) Exposure to second hand smoke Frequent urination Hernia of abdominal wall History of UTI Leg edema Pain in back 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 Rib pain on right side Right hip pain Screening mammogram, encounter for Urinary urgency Procedure/Surgical History Injection of nerve root of lumbar spine using fluoroscopic guidance (08/23/2022), Injection of sacroiliac joint using fluoroscopic guidance (06/06/2022), Cystoscopy (06/07/2021), Hernia repair (09/07/2020), Injection of therapeutic substance into bladder wall (08/03/2020), Injection of sacroiliac joint using fluoroscopic guidance (06/08/2020), Colonoscopy (11/22/2019), Injection of therapeutic substance into bladder wall (09/09/2019), Cataract extraction (04/17/2019), Cystoscopy (12/03/2018), Injection of therapeutic substance into bladder wall (12/03/2018), left total knee arthroplasty (08/29/2016), Appendectomy, Back Surgery, Bowel obstruction, Breast reduction, CE - Cataract extraction, Corns and callus, mole removal, Tubal ligation. Home Medications acetaminophen-oxycod one 325 mg-5 mg Tab, 1 tab(s), Oral, BID albuterol HFA 90 mcg/inh MDI, 2 puff(s), Inhalation, q4hr, PRN, 11 refills, Not taking albuterol-ipratropiu m Inh Lizzeth 3 mL UD, 3 mL, NEB, QID, PRN, 11 refills, Not taking amLODIPine 5 mg Tab, 5 mg= 1 tab(s), Oral, Daily, 4 refills Dulcolax Tab-EC, 2-3 tabs, Oral, Daily gabapentin 100 mg Cap, 200 mg= 2 cap(s), Oral, TID, 11 refills Handicap Placard, See Instructions ibuprofen 800 mg Tab, Oral, TID Maxzide-25 oral tablet, 1 tab(s), Oral, Daily, 4 refills Misc DME Prescription, See Instructions Misc Medication, 2 tab(s), Oral, BID Narcan 4 mg/0.1 mL nasal spray, 4 mg, Nasal, As Directed nebulizer supplies, See Instructions, 11 refills omeprazole 20 mg Cap-DR, 20 mg= 1 cap(s), Oral, Daily, 4 refills Refresh, 1 drop(s), Eye-Both, QID Stiolto Respimat 2.5 mcg-2.5 mcg inhalation aerosol, 2 puff(s), Inhalation, q24hr, Not taking triamcinolone Top 0.1% Crm 15 gram, 1 elva, Topical, BID, 11 refills Tylenol Allergies Chocolate (Anaphylaxis) Adhesive Bandage (Itching, Rash) aspirin (Nausea) iodinated radiocontrast dyes (hives, Unknown) penicillins (Itching, Rash) sulfamethoxazole (Swelling) Social History Alcohol - No Risk, 08/31/2020 Current, Wine, 1-2 times per month, Previous treatment: None. Alcohol use interferes with work or home: No. Drinks more than intended: No. Others hurt by drinking: No. Ready to change: No. Household alcohol concerns: No., 05/31/2021 Substance Abuse - Denies Substance Abuse, 10/23/2019 Previous treatment: None. Household substance abuse concerns: No., 05/31/2021 Tobacco - Denies Tobacco Use, 11/28/2018 Former smoker, quit more than 30 days ago Tobacco Use:. Never Smokeless Tobacco Use:. Cigarettes, Total pack years: 50. Started age 18.0 Years. Stopped age 50 Years. Previous treatment: None. Household tobacco concerns: No., 04/18/2023 Family History Alcoholism: Father. Metastatic cancer: Mother. Parkinson disease: Father. Parkinson' (more content not included)... [facility] Plan of Care - PT/OT/Speecho n 06-07-2023 Plan of Care - PT/OT/Speech [id number] #1.00TIFF [facility] Retail - Clinical Noteon Retail - Clinical Note [id number] #1.00TIFF [facility] Discharge Note - PTon 2023 Discharge Note - PT [id number] #1.00TIFF [facility] Patient Correspondenceon Patient Correspondence [id number] 6#1.00TIFF [facility] Consent for Treatmenton 05-11 Consent for Treatment [id number] #1.00TIFF [facility] Consultation Noteon 05-22-19 24 Consultation Note Patient: OSIRIS HERRERA Age: 77 years Sex: Female : 1945 Associated Diagnoses: None Author: Crow Gaona MD Subjective Chief complaint 05/22/2023 11:07 EDT right side low back pain . 77-year-old female with a history of sacroiliitis and lumbar radiculopathy return to the clinic with severe right-sided buttock pain. Pain occurs when she first gets up from a seated position and with walking. She did get sent for x-rays of her knee, leg, and ankle. She is also here to review those results. Pain rates an 8 out of 10 on numeric rating scale. Previous right sacroiliac joint injection done in May 2022 provided the patient 90% relief for approximately 6 months. Patient uses Tylenol and ibuprofen and does her physical therapy exercises. These are of mild benefit. Denies red flag symptoms. Health Status Allergies: Allergic Reactions (All) Severe Chocolate- Anaphylaxis. Severity Not Documented Adhesive Bandage- Rash and itching. Aspirin- Nausea. Iodinated radiocontrast dyes- Unknown and hives. Penicillins- Itching and rash. Sulfamethoxazole- Swelling. Canceled/Inactive Reactions (All) Severity Not Documented Iodine- Rash. Current medications: (Selected) Prescriptions Prescribed Handicap Placard: Handicap Placard, See Instructions, 1 EA, 0, Expires in 5 years, Supply Maxzide-25 oral tablet: 1 tab(s), Oral, Daily, 90 tab(s), Refill(s) 4, [facility]/pharmacy #[id number], 164, cm, 01/09/23 16:01:00 EDT, Height/Length Dosing, 86.6, kg, 01/09/23 16:01:00 EDT, Weight Dosing [facility] Prescription: [facility] Prescription, See Instructions, 1 EA, 0, Wheelchair, Supply Narcan 4 mg/0.1 mL nasal spray: 4 mg, Nasal, As Directed, for suspected overdose symptoms, # 1 kit(s), Refills(s) 0, Pharmacy: [facility]/pharmacy #[id number], 168, cm, 07/11/22 15:36:00 EDT, Height/Length Dosing, 90, kg, 07/11/22 15:36:00 EDT, Weight Dosing Stiolto Respimat 2.5 mcg-2.5 mcg inhalation aerosol: = 2 puff(s), Inhalation, q24hr, # 2 EA, Refills(s) 0, samples given to patient (Rx) acetaminophen-oxycod one 325 mg-5 mg Tab: 1 tab(s), Oral, BID, 60 tab(s), Refill(s) 0, [facility]/pharmacy #[id number], 169, cm, 04/18/23 14:16:00 EST, Height/Length Dosing, 86.3, kg, 04/18/23 14:16:00 EST, Weight Dosing albuterol HFA 90 mcg/inh MDI: 2 puff(s), Inhalation, q4hr for wheezing, 1 EA, [facility](s) 11[id number], cm, 07/08/20 10:28:00 EDT, Height/Length Dosing, 91.8, kg, 07/08/20 10:28:00 EDT, Weight Dosing albuterol-ipratropiu m Inh Lizzeth 3 mL UD: 3 mL, NEB, QID Wheezing, 120 EA, Refill(s) 11, [id number], 165, cm, 02/26/21 14:54:00 EST, Height/Length Dosing, 88.6, kg, 02/26/21 14:54:00 EST, Weight Dosing amLODIPine 5 mg Tab: 5 mg = 1 tab(s), Oral, Daily, # 90 tab(s), Refills(s) 4, [id number], 169, cm, 03/31/23 13:47:00 EST, Height/Length Dosing, 83.6, kg, 03/31/23 13:47:00 EST, Weight Dosing gabapentin 100 mg Cap: 200 mg = 2 cap(s), Oral, TID, # 180 cap(s), Refills(s) 11, [id number], 169, cm, 03/31/23 13:47:00 EST, Height/Length Dosing, 83.6, kg, 03/31/23 13:47:00 EST, Weight Dosing nebulizer supplies: nebulizer supplies, See Instructions, 1 EA, 11, nebulizer supplies dx J44.9, [facility], Supply, 158, cm, 12/27/19 11:56:00 EDT, Height/Length Dosing, 88.6, kg, 12/27/19 11:56:00 EDT, Weight Dosing omeprazole 20 mg Cap-DR: 20 mg = 1 cap(s), Oral, Daily, # 90 cap(s), Refills(s) 4, [id number] 169, cm, 03/31/23 13:47:00 EST, Height/Length Dosing, 83.6, kg, 03/31/23 13:47:00 EST, Weight Dosing triamcinolone Top 0.1% Crm 15 gram: 1 elva, Topical, BID, 30 gram, Refill(s) 11, [facility] #[id number], 164, cm, 01/09/23 16:01:00 EDT, Height/Length Dosing, 86.6, kg, 01/09/23 16:01:00 EDT, Weight Dosing Documented Medications Documented Dulcolax Tab-EC: 2-3 tabs, Oral, Daily, adjusts for constipation concerns, Refills(s) 0 Misc Medication: 2 tab(s), Oral, BID, Hyroeye gets from Dr. 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 Normal [facility] Comment on above: Result Comment: Elec tronically Signed By: Jimenez BANSAL, Crow Chávez.br\Date and Time Signed: 05/22/23 11:27 EDT Legal Correspondence Officeo n 05-22-2023 Legal Correspondence Office [id number] 6#1.00TIFF Normal [facility] Office/Clinic Note-Physician on 05-22-2023 Office/Clinic Note-Physician [id number] 2#1.00TIFF Normal [facility] Patient Correspondenceon Patient Correspondence [id number] 7#1.00TIFF Normal [facility] Patient Correspondence [id number] 5#1.00TIFF Normal [facility] Patient Correspondence [id number] 3#1.00TIFF Normal [facility] Patient Correspondence [id number] 0#1.00TIFF Normal [facility] Patient History Officeon Patient History Office [id number] 4#1.00TIFF Normal [facility] Plan of Care - PT/OT/Speecho n 05-03-2023 Plan of Care - PT/OT/Speech [id number] #1.00TIFF Normal [facility] 04-28-19 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 Reason: Disease management Case Type: Chronic Care Management Risk Score: -- Case Status: Active (January 03, 2019) Date Assigned: December 19, 2018 Assigned By: Brice Stephenson RN Date Enrolled: January 03, 2019 Assigned Primary Personnel: Dereck Rosario RN Assigned Secondary Personnel: -- Case Physician: Dakotah Gallardo DO Ongoing Adjustment reaction 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 Bilateral hearing loss COPD exacerbation DDD (degenerative disc disease), cervical Dependent for transportation Edema Elevated diaphragm Emphysema/COPD Enrolled in chronic care management Former smoker Generalized osteoarthritis GERD (gastroesophageal reflux disease) History of stroke HTN (hypertension) Incontinence without sensory awareness Insomnia Irritable bowel syndrome with predominant constipation Leg pain, left Lumbar radiculopathy, right Mixed incontinence OAB (overactive bladder) Obesity due to excess calories Oral thrush Other urethral stricture, female Pain of right sacroiliac joint Patient has healthcare proxy and living will Peripheral neuropathy RLS (restless legs syndrome) S/P knee replacement Severe obstructive sleep apnea Somatic dysfunction of abdominal region Somatic dysfunction of cervical region Somatic dysfunction of lower extremities Somatic dysfunction of lumbar region Somatic dysfunction of rib cage region Somatic dysfunction of sacral spine Somatic dysfunction of thoracic region Thoracic aorta atherosclerosis Tremor Wears hearing aid in both ears Historical Abdominal pain, generalized Abnormal urinalysis Body mass index (BMI) of 31.0-31.9 in adult Bronchitis with bronchospasm Cervical radiculopathy Chest pain Constipation Dizziness WINTERS (dyspnea on exertion) Exposure to second hand smoke Frequent urination Hernia of abdominal wall History of UTI Leg edema Pain in back 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 Rib pain on right side Right hip pain Screening mammogram, encounter for Urinary urgency Procedure/Surgical History Injection of nerve root of lumbar spine using fluoroscopic guidance (08/23/2022), Injection of sacroiliac joint using fluoroscopic guidance (06/06/2022), Cystoscopy (06/07/2021), Hernia repair (09/07/2020), Injection of therapeutic substance into bladder wall (08/03/2020), Injection of sacroiliac joint using fluoroscopic guidance (06/08/2020), Colonoscopy (11/22/2019), Injection of therapeutic substance into bladder wall (09/09/2019), Cataract extraction (04/17/2019), Cystoscopy (12/03/2018), Injection of therapeutic substance into bladder wall (12/03/2018), left total knee arthroplasty (08/29/2016), Appendectomy, Back Surgery, Bowel obstruction, Breast reduction, CE - Cataract extraction, Corns and callus, mole removal, Tubal ligation. Home Medications acetaminophen-oxycod one 325 mg-5 mg Tab, 1 tab(s), Oral, BID albuterol HFA 90 mcg/inh MDI, 2 puff(s), Inhalation, q4hr, PRN, 11 refills, Not taking albuterol-ipratropiu m Inh Lizzeth 3 mL UD, 3 mL, NEB, QID, PRN, 11 refills, Not taking amLODIPine 5 mg Tab, 5 mg= 1 tab(s), Oral, Daily, 4 refills Dulcolax Tab-EC, 2-3 tabs, Oral, Daily gabapentin 100 mg Cap, 200 mg= 2 cap(s), Oral, TID, 11 refills Handicap Placard, See Instructions ibuprofen 800 mg Tab, Oral, TID Maxzide-25 oral tablet, 1 tab(s), Oral, Daily, 4 refills Misc DME Prescription, See Instructions Misc Medication, 2 tab(s), Oral, BID Narcan 4 mg/0.1 mL nasal spray, 4 mg, Nasal, As Directed nebulizer supplies, See Instructions, 11 refills omeprazole 20 mg Cap-DR, 20 mg= 1 cap(s), Oral, Daily, 4 refills Refresh, 1 drop(s), Eye-Both, QID Stiolto Respimat 2.5 mcg-2.5 mcg inhalation aerosol, 2 puff(s), Inhalation, q24hr, Not taking triamcinolone Top 0.1% Crm 15 gram, 1 elva, Topical, BID, 11 refills Allergies Chocolate (Anaphylaxis) Adhesive Bandage (Itching, Rash) aspirin (Nausea) iodinated radiocontrast dyes (hives, Unknown) penicillins (Itching, Rash) sulfamethoxazole (Swelling) Social History Alcohol - No Risk, 08/31/2020 Current, Wine, 1-2 times per month, Previous treatment: None. Alcohol use interferes with work or home: No. Drinks more than intended: No. Others hurt by drinking: No. Ready to change: No. Household alcohol concerns: No., 05/31/2021 Substance Abuse - Denies Substance Abuse, 10/23/2019 Previous treatment: None. Household substance abuse concerns: No., 05/31/2021 Tobacco - Denies Tobacco Use, 11/28/2018 Former smoker, quit more than 30 days ago Tobacco Use:. Never Smokeless Tobacco Use:. Cigarettes, Total pack years: 50. Started age 18.0 Years. Stopped age 50 Years. Previous treatment: None. Household tobacco concerns: No., 04/18/2023 Family History Alcoholism: Father. Metastatic cancer: Mother. Parkinson disease: Father. Parkinson's disease: (more content not included)... Normal [facility] Consultation Noteon 04-27-19 24 Consultation Note [id number] #1.00TIFF [facility] Family Medicine Office/Clini c Noteon 04-21-2023 Family Medicine Office/Clinic Note Chief Complaint F/U HPI Staff Patient here today for F/U OMT/ Back JOE 03/31/23 Labs 03/30/23 Patient here today with her son Drake for her OMT. Osiris states she is not using any breathing treatment medications at this time. History of Present Illness 77 Years old Female here to f/u for LOW BACK PAIN Social: The patient is a here with her son Drake the patient has plans later this week for her monthly lunch group HPI staff / Chief Complaint confirmed with the patient This patient was seen for this complaint previously and treated with manipulation (OMT aka OMM). The patient reports SOME improvement of symptoms after OMT. Today, the patient reports their symptoms are PRESENT and is requesting OMT again. Based on their report of symptoms and my exam findings, I believe OMT is appropriate today. The patient expresses consent for manipulation today. describes her chronic rib, neck and low back pain no longer requiring opioids consistent with gabapentin From last note: (tagged below) PHYSICAL EXAM Constitutional: Vital signs reviewed; this patient is well nourished, no acute distress Lungs: Clear to auscultation, non-labored respiration - expansion is symmetric Heart: Normal rate and rhythm, normal peripheral perfusion MSK: Gait is slow and shuffling SI joint is tender bilat; worse on the left Lumbar paraspinal muscle tight/tender bilaterally; worse on the right Core muscles are sub-optimal in tension at rest Skin: Warm, dry Neurologic: Awake, alert and oriented Psychiatric: Cooperative, appropriate mood and affect, judgement is appropriate Procedure documentation - Osteopathic Manipulation: Lumbar Spine: Lumbar paraspinal restriction on the BILAT; worse on the right - treated with myofascial, BLT and FPR - with objective and subjective improvement Sacral: SI dysfunction on the BILAT; worse on the left - treated with BLT and FPR - with objective and subjective improvement Lower Extremity: Ssoas restriction and tenderness on the right - treated with BLT and FPR - with objective and subjective improvement PLAN: 1. Low Back pain (M54.50) Chronic. Stable Multifactorial etiology Medication does seem to provide ample benefit Does get benefit from OMT Discussed the importance of optimizing mechanics Discussed the rationale of manipulation in the future F/u 1 month or PRN *Patient denies any symptoms of progressively worsening upper/lower extremity weakness, progressively worsening gait abnormality, new onset bowel/bladder incontinence/ urinary retention, or saddle anesthesia. No new or worsening symptoms of fever, chills, night sweats. 2. Spasm of lumbar paraspinous muscle (M62.830) Acute on chronic Likely contributing to the above Etiology is likely a combination of sub-optimal mechanics, muscle imbalance, posture vs other Discussed with the patient today Improved with OMM F/u 1 month 3. Abdominal weakness (R19.8) Acute on chronic Sub-optimal Likely playing a role in the patient's low back pain Given instructions on how to begin engaging core muscles - supine with knees bent Discussed how this will help with trunk stability and share the work with her other erector muscles f/u 1 month or PRN 4. Hip flexor tightness (M24.559) Chronic Sub-optimal control Likely stemming from sub-optimal mechanics Discussed how underuse of abdominal muscles to provide trunk stability can lead to an overreliance on hip flexors, hamstrings and lumbar paraspinals which can lead to increase/ worsening of low back pain And if the patient has DDD, arthritis etc, can aggravate those symptoms as well Trunk stability exercises reviewed today Address abdominal weakness F/u 1 month or PRN 5. Poor posture (R29.3) Acute on chronic Likely contributes to above Work on core strength exercises reviewed today Explained how this will help offload the work down by the lumbar erectors and help reduce the strain the patient feels in the low back region F/u 1 month or PRN 8. Somatic dysfunction of the Lumbar Spine (M99.03) Manipulation described as above Provided with permission by the patient The patient tolerated manipulation well and the procedure went as planned without incident Range of motion and function have improved with objective improvement of signs and subjective improvement of symptoms Patient to follow-up in 3-4 weeks for additional manipulation if needed (or sooner PRN) Discussed the importance of addressing core strength 9. Somatic dysfunction of the Sacral Spine (M99.04) see OMM portion for more details 10. Somatic dysfunction of the Lower Extremities (M99.06) see OMM portion for more details Total time spent TODAY preparing the chart, face to face with the patient and family and time spent documenting, reviewing, and ordering tests was 30 mins. Time spent with manipulation was over and above the noted 30 minutes. Patient was counseled on the (more content not included)... [facility] Comment on above: Result Comment: Elec tronically Signed By: Dakotah Gallardo DO\.br\Date and Time Signed: 04/21/23 18:28 EST Physician Referralon 024 Physician Referral [id number] Normal [facility] Ambulatory Visit Summaryon 0 04-18-2023 Ambulatory Visit Summary OSIRIS HERRERA :1945 Visit Date:04/18/2023 Ambulatory Visit Instructions Your Diagnosis Elevated diaphragm S/P knee replacement Adult BMI 30.0-30.9 kg/sq m These Are Your Goals Reduce exacerbations of COPD, will understand benefits to daily treatment of COPD. Interventions: 10/12/21 Fill Rx for Rescue pack and call CN if starts medications - Done Start Water aerobic exercises beginning 01/08/19 2 days per week to include water walking - Done Use inhaler as prescribed by PCP - Done Use nebulizer machine as needed for SOB for COPD. - Progressing Will have improvement in lower leg swelling Interventions: 06/08/21 Patient is going to try to return to water aerobics once per week, - Not done Decrease sodium intake to 2000 mg daily, do not use salt shaker. - Progressing Keep appointment with Dr. Ball on 10/13/20 at 0920 - Done Keep legs elevated when sitting - Progressing Weigh daily, record and notify CN of 3# weight gain in day or %3 over a week. - Not done Reduce frequency of Urinary Tract infections Interventions: Botox injections for urinary incontinence every 6 months as needed. - Done Call office at first signs and symptoms of UTI for urinalysis. - Progressing Drink 64 oz of fluids each day to stay hydrated. - Progressing Go to restroom at first sign of urinary urge and not hold. - Progressing See urologist as needed. - Progressing Your Care Team Attending Physician - Dakotah Gallardo DO Primary Care Physician - Dakotah Gallardo DO This Is Your Medications List Misc Prescription (Handicap Placard) Misc Prescription (Misc DME Prescription) Misc Prescription (nebulizer supplies) Non-Formulary Medication (Misc Medication) acetaminophen-oxycod one (acetaminophen-oxyco done 325 mg-5 mg Tab) albuterol (albuterol HFA 90 mcg/inh MDI) albuterol-ipratropiu m (albuterol-ipratropi um Inh Lizzeth 3 mL UD) amlodipine (amLODIPine 5 mg Tab) bisacodyl (Dulcolax Tab-EC) gabapentin (gabapentin 100 mg Cap) hydrochlorothiazide- triamterene (Maxzide-25 oral tablet) ibuprofen (ibuprofen 800 mg Tab) naloxone (Narcan 4 mg/0.1 mL nasal spray) ocular lubricant (Refresh) olodaterol-tiotropiu m (Stiolto Respimat 2.5 mcg-2.5 mcg inhalation aerosol) omeprazole (omeprazole 20 mg Cap-DR) triamcinolone topical (triamcinolone Top 0.1% Crm 15 gram) Procedures Performed Injection of nerve root of lumbar spine using fluoroscopic guidance (08/23/2022), Injection of sacroiliac joint using fluoroscopic guidance (06/06/2022), Cystoscopy (06/07/2021), Hernia repair (09/07/2020), Injection of therapeutic substance into bladder wall (08/03/2020), Injection of sacroiliac joint using fluoroscopic guidance (06/08/2020), Colonoscopy (11/22/2019), Injection of therapeutic substance into bladder wall (09/09/2019), Cataract extraction (04/17/2019), Cystoscopy (12/03/2018), Injection of therapeutic substance into bladder wall (12/03/2018), left total knee arthroplasty (08/29/2016), Appendectomy, Back Surgery, Bowel obstruction, Breast reduction, CE - Cataract extraction, Corns and callus, mole removal, Tubal ligation. Discharge Vitals Heart Rate (Peripheral) 79 Blood Pressure 118/70 Height 169 cm Height 67 in Weight 86.3 kg Weight 189.86 lb BMI 30.22 What to do next Scheduled Follow-Up Appointments Monday 9:40 AM EST With: Dakotah Gallardo DO Where: [facility] [place] [facility] [address] [place] [address]-\.br\ Someone Will Contact You Regarding These Appointments\.br\ [facility] External Ambulatory Referral, Physical Therapy, at [facility], 04/18/23 15:25:00 EST, S/P knee replacement\.br\ Medications\.br\ What How Much When Why Instructions\.br\ Unchanged acetaminophen-oxyc odone (acetaminophen-oxy codone 325 mg-5 mg Tab) 1 Tablets By Mouth 2 times a day Lumbar radiculopathy, right Polyneuropathy Acute low back pain with sciatica\.br\ Unchanged albuterol (albuterol HFA 90 mcg/ inh MDI) 2 Puffs Inhalation Every 4 hours as needed for for wheezing\.br\ Unchanged albuterol-ipratrop ium (albuterol-ipratro pium Inh Lizzeth 3 mL UD) 3 Milliliter Nebulized inhalation (aerosol) 4 times a day as needed for Wheezing\.br\ Unchanged amlodipine (amLODIPine 5 mg Tab) 1 Tablets By Mouth Every day\.br\ Unchanged bisacodyl (Dulcolax Tab-EC) 2-3 tabs By Mouth Every day adjusts for constipation concerns \.br\ Unchanged gabapentin (gabapentin 100 mg Cap) 2 Capsules By Mouth 3 times a day DDD (degenerative disc disease), cervical Restless leg Acute low back pain with sciatica\.br\ Unchanged hydrochlorothiazid e-triamterene (Maxzide-25 oral tablet) 1 Tablets By Mouth Every day\.br\ Unchanged ibuprofen (ibuprofen 800 mg Tab) By Mouth 3 times a day\.br\ Unchanged Misc Prescription (Handicap Placard) See instructions Expires in 5 years \.br\ Unchanged Misc Prescription (Misc DME Prescription) See instructions Wheelchair \.br\ Unchanged Misc Prescription (nebulizer supplies) See instructions nebulizer supplies dx J44.9 \.br\ Unchanged naloxone (Narcan 4 mg/ 0.1 mL nasal spray) 4 Milligram Nasal Inhalation As Directed for suspected overdose symptoms \.br\ Unchanged Non-Formulary Medication (Misc Medication) 2 Tablets By Mouth 2 times a day Gagandeep ordoñez from Dr. Khan \.br\ Unchanged ocular lubricant (Refresh) 1 Drops Both eyes 4 times a day\.br\ Unchanged olodaterol-tiotrop ium (Stiolto Respimat 2.5 mcg-2.5 mcg inhalation aerosol) 2 Puffs Inhalation Every 24 hours\.br\ Unchanged omeprazole (omeprazole 20 mg Cap-DR) 1 Capsules By Mouth Every day Chronic GERD\.br\ Unchanged triamcinolone topical (triamcinolone Top 0.1% Crm 15 gram) 1 Application Topical 2 times a day\.br\ Allergies\.br\ Chocolate (Anaphylaxis)\.br\ Adhesive Bandage (Itching, Rash)\.br\ aspirin (Nausea)\.br\ iodinated radiocontrast dyes (hives, Unknown)\.br\ penicillins (Itching, Rash)\.br\ sulfamethoxazole (Swelling)\.br\ Problems\.br\ Ongoing - Any problem that you are currently receiving treatment for.\.br\ Adjustment reaction\.br\ 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\.br\ Bilateral hearing loss\.br\ COPD exacerbation\.br\ DDD (degenerative disc disease), cervical\.br\ Dependent for transportation\.br \ Edema\.br\ Elevated diaphragm\.br\ Emphysema/COPD\.br \ Enrolled in chronic care management\.br\ Former smoker\.br\ Generalized osteoarthritis\.br \ GERD (gastroesophageal reflux disease)\.br\ History of stroke\.br\ HTN (hypertension)\.br \ Incontinence without sensory awareness\.br\ Insomnia\.br\ Irritable bowel syndrome with predominant constipation\.br\ Leg pain, left\.br\ Lumbar radiculopathy, right\.br\ Mixed incontinence\.br\ OAB (overactive bladder)\.br\ Obesity due to excess calories\.br\ Oral thrush\.br\ Other urethral stricture, female\.br\ Pain of right sacroiliac joint\.br\ Patient has healthcare proxy and living will\.br\ Peripheral neuropathy\.br\ RLS (restless legs syndrome)\.br\ S/P knee replacement\.br\ Severe obstructive sleep apnea\.br\ Somatic dysfunction of abdominal region\.br\ Somatic dysfunction of cervical region\.br\ Somatic dysfunction of lower extremities\.br\ Somatic dysfunction of lumbar region\.br\ Somatic dysfunction of rib cage region\.br\ Somatic dysfunction of sacral spine\.br\ Somatic dysfunction of thoracic region\.br\ Thoracic aorta atherosclerosis\.b r\ Tremor\.br\ Wears hearing aid in both ears\.br\ Historical - Any problem that you are no longer receiving treatment for.\.br\ Abdominal pain, generalized\.br\ Abnormal urinalysis\.br\ Body mass index (BMI) of 31.0-31.9 in adult\.br\ Bronchitis with bronchospasm\.br\ Cervical radiculopathy\.br\ Chest pain\.br\ Constipation\.br\ Dizziness\.br\ WINTERS (dyspnea on exertion)\.br\ Exposure to second hand smoke\.br\ Frequent urination\.br\ Hernia of abdominal wall\.br\ History of UTI\.br\ Leg edema\.br\ Pain in back\.br\ 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\.br\ Rib pain on right side\.br\ Right hip pain\.br\ Screening mammogram, encounter for\.br\ Urinary urgency\.br\ Patient Survey\.br\ You may receive a survey via text or e-mail asking about your office visit. Please share your experience with us by completing your survey. We appreciate your feedback and thank you for choosing us for your care.\.br\ \.br\ [facility] 04-05-19 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 Reason: Disease management Case Type: Chronic Care Management Risk Score: -- Case Status: Active (January 03, 2019) Date Assigned: December 19, 2018 Assigned By: Brice Stephenson RN Date Enrolled: January 03, 2019 Assigned Primary Personnel: Dereck Rosario RN Assigned Secondary Personnel: -- Case Physician: Dakotah Gallardo DO Problems Ongoing Adjustment reaction 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 Bilateral hearing loss COPD exacerbation DDD (degenerative disc disease), cervical Dependent for transportation Edema Elevated diaphragm Emphysema/COPD Enrolled in chronic care management Former smoker Generalized osteoarthritis GERD (gastroesophageal reflux disease) History of stroke HTN (hypertension) Incontinence without sensory awareness Insomnia Irritable bowel syndrome with predominant constipation Leg pain, left Lumbar radiculopathy, right Mixed incontinence OAB (overactive bladder) Obesity due to excess calories Oral thrush Other urethral stricture, female Pain of right sacroiliac joint Patient has healthcare proxy and living will Peripheral neuropathy RLS (restless legs syndrome) Severe obstructive sleep apnea Somatic dysfunction of abdominal region Somatic dysfunction of cervical region Somatic dysfunction of lower extremities Somatic dysfunction of lumbar region Somatic dysfunction of rib cage region Somatic dysfunction of sacral spine Somatic dysfunction of thoracic region Thoracic aorta atherosclerosis Tremor Wears hearing aid in both ears Historical Abdominal pain, generalized Abnormal urinalysis Body mass index (BMI) of 31.0-31.9 in adult Bronchitis with bronchospasm Cervical radiculopathy Chest pain Constipation Dizziness WINTERS (dyspnea on exertion) Exposure to second hand smoke Frequent urination Hernia of abdominal wall History of UTI Leg edema Pain in back 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 Rib pain on right side Right hip pain Screening mammogram, encounter for Urinary urgency Procedure/Surgical History Injection of nerve root of lumbar spine using fluoroscopic guidance (08/23/2022), Injection of sacroiliac joint using fluoroscopic guidance (06/06/2022), Cystoscopy (06/07/2021), Hernia repair (09/07/2020), Injection of therapeutic substance into bladder wall (08/03/2020), Injection of sacroiliac joint using fluoroscopic guidance (06/08/2020), Colonoscopy (11/22/2019), Injection of therapeutic substance into bladder wall (09/09/2019), Cataract extraction (04/17/2019), Cystoscopy (12/03/2018), Injection of therapeutic substance into bladder wall (12/03/2018), left total knee arthroplasty (08/29/2016), Appendectomy, Back Surgery, Bowel obstruction, Breast reduction, CE - Cataract extraction, Corns and callus, mole removal, Tubal ligation. Home Medications acetaminophen-oxycod one 325 mg-5 mg Tab, 1 tab(s), Oral, BID albuterol HFA 90 mcg/inh MDI, 2 puff(s), Inhalation, q4hr, PRN, 11 refills, Not taking albuterol-ipratropiu m Inh Lizzeth 3 mL UD, 3 mL, NEB, QID, PRN, 11 refills, Not taking amLODIPine 5 mg Tab, 5 mg= 1 tab(s), Oral, Daily, 3 refills Dulcolax Tab-EC, 2-3 tabs, Oral, Daily gabapentin 100 mg Cap, 200 mg= 2 cap(s), Oral, TID, 11 refills Handicap Placard, See Instructions ibuprofen 800 mg Tab, Oral, TID Maxzide-25 oral tablet, 1 tab(s), Oral, Daily, 4 refills Misc DME Prescription, See Instructions Misc Medication, 2 tab(s), Oral, BID Narcan 4 mg/0.1 mL nasal spray, 4 mg, Nasal, As Directed nebulizer supplies, See Instructions, 11 refills omeprazole 20 mg Cap-DR, 20 mg= 1 cap(s), Oral, Daily, 4 refills Refresh, 1 drop(s), Eye-Both, QID Stiolto Respimat 2.5 mcg-2.5 mcg inhalation aerosol, 2 puff(s), Inhalation, q24hr, Not taking triamcinolone Top 0.1% Crm 15 gram, 1 elva, Topical, BID, 11 refills Allergies Chocolate (Anaphylaxis) Adhesive Bandage (Itching, Rash) aspirin (Nausea) iodinated radiocontrast dyes (hives, Unknown) penicillins (Itching, Rash) sulfamethoxazole (Swelling) Social History Alcohol - No Risk, 08/31/2020 Current, Wine, 1-2 times per month, Previous treatment: None. Alcohol use interferes with work or home: No. Drinks more than intended: No. Others hurt by drinking: No. Ready to change: No. Household alcohol concerns: No., 05/31/2021 Substance Abuse - Denies Substance Abuse, 10/23/2019 Previous treatment: None. Household substance abuse concerns: No., 05/31/2021 Tobacco - Denies Tobacco Use, 11/28/2018 Former smoker, quit more than 30 days ago Tobacco Use:. Never Smokeless Tobacco Use:. Cigarettes, Total pack years: 50. Started age 18.0 Years. Stopped age 50 Years. Previous treatment: None. Household tobacco concerns: No., 03/31/2023 Family History Alcoholism: Father. Metastatic cancer: Mother. Parkinson disease: Father. Parkinson's disease: Father. Primary ericka (more content not included)... Normal [facility] JUSTEN w/Reflex if POSon 2023 Nuclear Ab Ql (S) Negative Invalid Interpretation Code Negative [facility] Comment on above: Result Comment: Perf ormed at: [facility] [place] [id number] PhD Virgen Pineda Performed By: #### 1 [id number], [id number], [id number], 08594722, 0885459, 0248995, 2061601, 89620779, 04054076, 0312901, 9765873 ####[facility] [address] [place] [address] Methylmalonic Acidon 024 Methylmalonate [Moles/Vol] 456 nmol/L High 0-378 [facility] Comment on above: Result Comment: This test was developed and its performance characteristics determined by [facility]. It has not been cleared or approved by the Food and Drug Administration. Performed at: [address] [id number] MD Dominick London Performed By: #### 1 [id number], [id number], 66234779, 32065992, 5766675, 5355722, 5155571, 75127718, 49623220, 9537295, 6572205 ####[facility] [address] [place] [address] SPEon 04-04-2023 Albumin [Mass/Vol] 3.9 g/dL Invalid Interpretation Code 2.9-4.4 [facility] Comment on above: Performed By: #### 1 [id number], [id number], 16292766, 07842103, 6369802, 6059600, 8240657, 31682306, 62421070, 1826117, 4358846 ####[facility] [address] [place] [address] Albumin/Globulin [Mass ratio] 1.1 {ratio} Invalid Interpretation Code 0.7-1.7 [facility] Comment on above: Performed By: #### 1 [id number], [id number], 49243740, 81445572, 2113530, 1041150, 8433834, 69834030, 71027471, 7185677, 2357999 ####[facility] [address] [place] [address] Alpha 1 globulin Elph [Mass/Vol] 0.3 g/dL Invalid Interpretation Code 0.0-0.4 [facility] Comment on above: Performed By: #### 1 [id number], [id number], 87652316, 34766518, 0683484, 2800468, 0987515, 28433910, 20244908, 3864762, 8954966 ####[place] [address] [place] [address] Alpha 2 globulin Elph [Mass/Vol] 0.8 g/dL Invalid Interpretation Code 0.4-1.0 [facility] Comment on above: Performed By: #### 1 [id number], [id number], 26397148, 76156089, 3347993, 3429468, 6136652, 28688858, 40769964, 7288227, 8726684 ####[place] [address] [address] [place] [address] Beta globulin Elph [Mass/Vol] 1.1 g/dL Invalid Interpretation Code 0.7-1.3 [facility] Comment on above: Performed By: #### 1 1024087, 709809684, 76875453, 75628073, 6833137, 9477809, 7570163, 33761601, 12662066, 6687332, 9332104 ####[address] [address] [place] [address] Gamma globulin Elph [Mass/Vol] 1.5 g/dL Invalid Interpretation Code 0.4-1.8 [facility] Comment on above: Performed By: #### 1 3598266, 111602036, 04279800, 18053321, 3215982, 4460685, 1672428, 24865178, 16129462, 8278903, 0337754 ####[facility] [address] [place] [address] Globulin (S) [Mass/Vol] 3.6 g/dL Invalid Interpretation Code 2.2-3.9 [facility] Comment on above: Performed By: #### 1 2813623, [id number], 68763798, 85465858, 2739952, 5782754, 2100204, 80642543, 03608517, 5606354, 3850456 ####[facility] [address] [place] [address] Laboratory comment Erasmo (Report) Comment Invalid Interpretation Code [facility] Comment on above: Result Comment: Prot ein electrophoresis scan will follow via computer, mail, or nurse behavioral health care delivery. Performed By: #### 1 [id number], [id number], 15184765, 77043897, 3879872, 8710742, 2708610, 38091009, 08892129, 9582152, 5083673 ####[facility] [address] [place] [address] Protein [Mass/Vol] 7.5 g/dL Invalid Interpretation Code 6.0-8.5 [facility] Comment on above: Performed By: #### 1 1836401, 466964086, 68113865, 53992208, 9219877, 7006835, 8307040, 67578825, 72554666, 0757752, 8153368 ####[facility] [address] [place] [address] Protein Fractions [Interp] Comment Invalid Interpretation Code [facility] Comment on above: Result Comment: The SPE pattern appears unremarkable. Evidence of monoclonal protein is not apparent. Performed at: [address] [id number] PhD Virgen Pineda Performed By: #### 1 0000425, [id number], 96802449, 95728869, 2388008, 9802475, 5357569, 26251236, 66330597, 0878654, 9843831 ####[facility] [address] [place] [address] Protein.monoclonal Elph [Mass/Vol] Not Observed Invalid Interpretation Code Not Observed [facility] Comment on above: Performed By: #### 1 [id number], 619355669, 54633527, 10399785, 6838372, 9390419, 4700020, 82672427, 49036286, 8693867, 0472812 ####[facility] [address] [place] [address] Family Medicine Office/Clini c Noteon 04-03-2023 Family Medicine Office/Clinic Note Chief Complaint F/U HPI Staff Patient here today with her daughter Aaron. back and hip pain./ OMT Patient requesting wheelchair/ Proposed on med list Patient also asking for possible increase of oxcycodone since taking a lot of ibuprofen lately JEO 11/04/22 Labs 08/18/22 Patient is here for follow up on COPD: Feeling controlled on medication:yes Need medication refilled:no Do you use O2? occasionally Patient is here for follow up on hypertension. How often are you checking your blood pressure? Doesnt check BP at home What are your average readings? _ Do you have any of the following symptoms? Chest Pain? no Palpitations? no WINTERS/SOB? no Headache? no Peripheral Edema? no Light Headedness? no Yearly BMP: due Refill needed?: no History of Present Illness 77 Years old Female here to f/u for LOW BACK PAIN Social: The patient is a The patient has 5 children 18 grandchildren great grandchild due in June 2023 She is here with Lupillo today HPI staff / Chief Complaint confirmed with the patient This patient was seen for this complaint previously and treated with manipulation (OMT aka OMM). The patient reports SOME improvement of symptoms after OMT. Today, the patient reports their symptoms are PRESENT and is requesting OMT again. Based on their report of symptoms and my exam findings, I believe OMT is appropriate today. The patient expresses consent for manipulation today. Today, the patient describes sharp right sided low back pain Back pain is 10 out of 10 at it's worst placing pressure on the right leg, the pain was so severe The patient describes radiation down the right leg now that she has been more active, this seems to make it better spending too much time in bed seems to make it worse The patient is SOMEWHAT consistent with medication; more so lately Interval history: has been doing quite well the last six months gabapentin had been doing well hadn't needed the pain medication last week, did a lot of work outside and felt good that day woke up the next day in agony couldn't stand up on the right leg since then, had resumed the percocet that was helping somewhat with pain yesterday was the first day she got out of bed and sat up in the chair From last note: (tag) Review of Systems PHQ Score Initial Depression Screen Score: 0 SCORE Physical Exam Vitals & Measurements HR: 74(Peripheral) BP: 116/64 SpO2: 88% HT: 67 in HT: 169 cm WT: 83.6 kg WT: 183.92 lb BMI: 29.27 PHYSICAL EXAM Constitutional: Vital signs reviewed; OSIRIS HERRERA is well nourished, no acute distress Lungs: Clear to auscultation, non-labored respiration - expansion is symmetric Heart: Normal rate and rhythm, normal peripheral perfusion MSK: Gait is NOT assessed extensively today; she is in a wheelchair but she did walk 2-3 steps; gait is slow and shuffling - no increase in pain with ambulating SI joint is tender bilat; worse on the right Lumbar paraspinal muscle tight/tender bilaterally; worse on the left Lumbar AROM is NOT ASSESSED today due to the patient's apprehension to test her AROM Core muscles are sub-optimal in tension at rest Thoracic paraspinal muscles are tight/tender bilaterally; worse on the left The patient does lean forward quite a bit at the waist and through out the thoracic spine *i believe this plays a role in her current issue Skin: Warm, dry Neurologic: Awake, alert and oriented Psychiatric: Cooperative, appropriate mood and affect, judgement is appropriate Procedure Osteopathic Manipulation Cervical Spine: Reduced range of motion, tenderness at the insertion of the middle scalene on rib 1 on LEFT - treated with BLT and FPR - with objective and subjective improvement Thoracic Spine: Chronic and acute tissue texture changes of the trapezius, rhomboid on the LEFT - treated with myofascial, BLT and FPR - with objective and subjective improvement Lumbar Spine: Lumbar paraspinal restriction on the RIGHT - treated with myofascial, BLT and FPR - with objective and subjective improvement Sacral: SI dysfunction BILAT; worse on the RIGHT - treated with BLT and FPR - with objective and subjective improvement Lower Extremity: BILAT-sided hamstring restriction and RIGHT psoas restriction - treated with BLT and FPR - with objective and subjective improvement Rib: EXHALATION dysfunction of rib 8 on the RIGHT - treated with rib raising and BLT - with objective and subjective improvement Abdomen: Diaphragm restriction on the RIGHT - treated with inhibition to the diaphragm - with objective and subjective improvement Assessment/Plan 1. Acute low back pain with sciatica (M54.40: Lumbago with sciatica, unspecified side) Impression Acute on chronic Sub-optimal control of symptoms I had a long discussion with the patient regarding the etiology of this back pain This appears to be a combination of weak abdominals, poor posture, with sub-optimal mechanics I h (more content not included)... Normal [facility] Comment on above: Result Comment: Elec tronically Signed By: Dakotah Gallardo DO.peng\Date and Time Signed: 04/03/23 13:35 EST CHEMISTRYOrdered By: SYSTEM SYSTEM on 03-31-2023 Albumin [Mass/Vol] 4.3 g/dL Normal 3.3 - 5.0 gm/dL R emisol Chem Albumin/Globulin [Mass ratio] 1.2 {ratio} Normal 1.1 - 2.2 Remisol Chem Alk Phos 71 [iU]/d Normal 21 - 98 Int._Unit/L Remisol Chem ALT 14 [iU]/d Normal 6 - 46 Int._Unit/L Remiso l Chem Anion gap [Moles/Vol] 13 mmol/L Normal 6 - 16 mEq/L Remisol Chem AST 18 [iU]/d Normal 5 - 43 Int._Unit/L Remiso l Chem Bili Total 0.3 mg/dL Normal 0.0 - 1.1 mg/dL Remisol Chem Calcium [Mass/Vol] 9.2 mg/dL Normal 8.9 - 11.1 mg/dL Remisol Chem Chloride [Moles/Vol] 97 mmol/L Low 101 - 111 mmol/ L Remisol Chem CO2 [Moles/Vol] 33 mmol/L High 21 - 31 mmol/L Remis ol Chem Cobalamin (Vitamin B12) [Mass/Vol] 176 pg/mL Normal 50 - 1500 pg/mL Remisol Chem Creatinine [Mass/Vol] 1.1 mg/dL Normal 0.5 - 1.3 mg/dL Remisol Chem CRP mg/dL Normal <=1.9mg/dL Remisol Chem eGFR 51 mL/min/1.73 m2 Low >=59mL/min/1.73 m2 Remisol Chem Folate Lvl 16.5 ng/mL Normal >=6.7ng/mL Remisol Chem FTI 9.00 ng/dL Normal 5.90 - 13.10 ng/dL Remiso l Chem Globulin (S) [Mass/Vol] 3.5 g/dL Normal 1.4 - 4.0 gm/dL Remisol Chem Glucose [Mass/Vol] 105 mg/dL Normal 55 - 199 mg/dL Re misol Chem Potassium [Moles/Vol] 4.4 mmol/L Normal 3.5 - 5.3 mmol/L Remisol Chem Protein [Mass/Vol] 7.8 g/dL Normal 6.0 - 7.8 gm/dL R emisol Chem Sodium [Moles/Vol] 139 mmol/L Normal 135 - 145 mmol/L Remisol Chem T3 Uptake 44.5 % Normal 32.0 - 48.4 % Remisol Chem T4 [Mass/Vol] 8.1 ug/dL Normal 4.6 - 9.1 mcg/dL Remis ol Chem TSH Qn 2.13 m[IU]/L Normal 0.34 - 5.60 mcIU/mL Remisol Chem Urea nitrogen [Mass/Vol] 24 mg/dL High 5 - 21 mg/dL Remisol Chem Urea nitrogen/Creatinine [Mass ratio] 22 mg/mg High 10 - 20 Remisol Chem CHEMISTRYOrdered By: Romelia Corcoran on 03-31-2023 HbA1c (Bld) [Mass fraction] 5.5 % Normal <=5.9% [facility] ChemAutoSS CMPon 03-31-2023 Albumin [Mass/Vol] 4.3 g/dL Normal 3.3-5.0 [facility] Comment on above: Performed By: #### 1 [id number], [id number], 22314306, 22538246, 5104347, 1006873, 4037373, 42213687, 19590668, 0277849, 2596723 #### [facility] [address] [place] [address] Albumin/Globulin [Mass ratio] 1.2 {ratio} Normal 1.1-2.2 [facility] Comment on above: Performed By: #### 1 5500103, 510645939, 78387650, 61280754, 1946755, 5452761, 1415312, 48635055, 93330943, 6875869, 2204468 #### [facility] [address] [place] [address] Alk Phos 71 Int._Unit/L Normal 21-98 [facility] Comment on above: Performed By: #### 1 9184211, 100192788, 57150499, 71665642, 7620541, 4331213, 4893814, 61606654, 48039443, 6012531, 6230007 #### [facility] [address] [id number] ALT 14 Int._Unit/L Normal 6-46 [facility] Comment on above: Performed By: #### 1 7386454, 633515023, 90231623, 72800329, 0918992, 9085973, 8858199, 98192425, 46217298, 5684905, 2712158 #### [facility] [address] [place] [address] Anion gap [Moles/Vol] 13 mmol/L Normal 6-16 [facility] Comment on above: Performed By: #### 1 5371655, 266809820, 58869319, 24997281, 5277384, 4742525, 0534448, 25354682, 46532711, 5876685, 1850723 #### [facility] [address] [place] [address] AST 18 Int._Unit/L Normal 5-43 [facility] Comment on above: Performed By: #### 1 4302512, 508935063, 81970576, 13338063, 6944161, 6908397, 8489433, 43380167, 37173993, 5850248, 8154239 #### [facility] [address] [place] [address] Bili Total 0.3 mg/dL Normal 0.0-1.1 [facility] Comment on above: Performed By: #### 1 0537185, 260699298, 54430591, 38066898, 3700962, 7114844, 4592407, 53666301, 80409261, 9118648, 0967950 #### [facility] [address] [place] [address] BUN/Creat Ratio 22 No Units High 10-20 [facility] Comment on above: Performed By: #### 1 0212078, 069183194, 09877800, 14345866, 1165079, 6899885, 4260934, 13134123, 05201328, 4448305, 1715546 #### [facility] [address] [place] [address] Calcium [Mass/Vol] 9.2 mg/dL Normal 8.9-11.1 [facility] Comment on above: Performed By: #### 1 6864189, 443817621, 35364854, 87493732, 2718268, 3636948, 4721343, 30991855, 22471987, 1974183, 3200262 #### [facility] [address] [place] [address] Chloride [Moles/Vol] 97 mmol/L Low 101-111 [facility] Comment on above: Performed By: #### 1 2375947, 258553785, 17583529, 01587983, 7911987, 0469340, 1122764, 49173373, 50160833, 8609666, 1104675 #### [facility] [address] [place] [address] CO2 [Moles/Vol] 33 mmol/L High 21-31 [facility] Comment on above: Performed By: #### 1 6827027, 515941232, 28850604, 49680907, 4438290, 1403069, 9140176, 25722921, 00443917, 4414260, 1298014 #### [facility] [address] [place] [address] Creatinine [Mass/Vol] 1.1 mg/dL Normal 0.5-1.3 [facility] Comment on above: Performed By: #### 1 3170716, 401070321, 24348663, 58595576, 7668649, 1577731, 1877033, 73191521, 53190909, 6478088, 6977335 #### [facility] [address] [place] [address] Globulin (S) [Mass/Vol] 3.5 g/dL Normal 1.4-4.0 [facility] Comment on above: Performed By: #### 1 3211650, 241748658, 51457854, 25464125, 8831816, 6014849, 9747541, 81891274, 85153568, 2401743, 5467307 #### [facility] [address] [place] [address] Glucose [Mass/Vol] 105 mg/dL Normal 55-199 [facility] Comment on above: Performed By: #### 1 2316385, 753807331, 42726732, 27161867, 9640959, 7588412, 4241438, 45474837, 70945461, 4532497, 3771350 #### [facility] [address] [place] [address] Potassium [Moles/Vol] 4.4 mmol/L Normal 3.5-5.3 [facility] Comment on above: Performed By: #### 1 7341935, 738312348, 23419121, 13695667, 4752480, 4232126, 6754587, 60828068, 30416264, 3169050, 8144802 #### [facility] [address] [place] [address] Protein [Mass/Vol] 7.8 g/dL Normal 6.0-7.8 [facility] Comment on above: Performed By: #### 1 0272339, 133601281, 94660214, 10074858, 7388267, 2111800, 7084851, 76449760, 23531791, 1995324, 6315164 #### [facility] [address] [place] [address] Sodium [Moles/Vol] 139 mmol/L Normal 135-145 [facility] Comment on above: Performed By: #### 1 8261289, 652675551, 03110457, 24656624, 5917090, 1598075, 5148208, 00038288, 42747055, 9175270, 2922408 #### [facility] [address] [place] [address] Urea nitrogen [Mass/Vol] 24 mg/dL High 5-21 [facility] Comment on above: Performed By: #### 1 0672394, 560098378, 08169415, 48391669, 0049731, 3958046, 1893769, 76417869, 66554275, 9656708, 7864480 #### [facility] [address] [place] [address] CRPon 03-31-2023 CRP [Mass/Vol] mg/L Normal <=1.9 [facility] Comment on above: Performed By: #### 1 0464537, 024648963, 98393893, 47943702, 0695359, 8981914, 8422040, 93100834, 70160241, 0172513, 8289536 #### [facility] [address] [place] [address] Consent for Treatmenton 03-13 Consent for Treatment [id number] #1.00TIFF Normal [facility] Folateon 03-31-2023 Folate Lvl 16.5 ng/mL Normal >=6.7 [facility] Comment on above: Performed By: #### 1 7693812, 225312630, 70698466, 79126539, 4122151, 4513009, 4494656, 85469111, 83602159, 0200703, 2738793 ####[facility] [address] [place] [address] HEMATOLOGYOrdered By: Jose Corcoran on 03-31-2023 ESR (Bld) [Velocity] 20 mm/h Normal 0 - 34 mm/hr FT [facility] HemeAutoSS HdgM2uao 03-31-2023 HbA1c (Bld) [Mass fraction] 5.5 % Normal <=5.9 [facility] Comment on above: Performed By: #### 1 3503267, 426138363, 71290740, 07125324, 9020327, 9371468, 7556130, 64815290, 06630533, 1904926, 2005584 ####[facility] [address] [place] [address] Medication Consenton 024 Medication Consent [id number] #1.00TIFF Normal [facility] Physician Orderon 03-31-2023 Physician Order [id number] #1.00TIFF Normal [facility] Sed Rate Automatedon 024 ESR (Bld) [Velocity] 20 mm/h Normal 0-34 [facility] Comment on above: Performed By: #### 1 6894435, 447889097, 32363539, 90856944, 7611679, 9591839, 8077981, 89114771, 84063748, 2399153, 0000435 #### [facility] [address] [place] [address] Thyroid IIon 03-31-2023 FTI 9.00 ng/dL Normal 5.90-13.10 [facility] Comment on above: Performed By: #### 1 8899907, 793687420, 58313540, 87318229, 8628057, 0293924, 4979007, 22034720, 35105886, 1820835, 9647489 ####[facility] [address] [place] [address] T3 Uptake 44.5 % Normal 32.0-48.4 [facility] Comment on above: Performed By: #### 1 0601750, 964173999, 46429792, 48189878, 6612121, 4090712, 1840736, 88774906, 87544105, 9091701, 0625181 ####[facility] [address] [place] [address] T4 8.1 microgram/dL Normal 4.6-9.1 [facility] Comment on above: Performed By: #### 1 3951504, 475360008, 87934667, 72658585, 0762843, 9532098, 0280471, 32243361, 38031144, 3125111, 1354685 ####[facility] [address] [place] [address] TSH Qn 2.13 m[IU]/L Normal 0.34-5.60 [facility] Comment on above: Performed By: #### 1 0968691, 740160623, 87234511, 06493256, 0765725, 9252023, 1165203, 51244561, 36580904, 5982022, 5403870 ####[facility] [address] [place] [address] Vit B12on 03-31-2023 Cobalamin (Vitamin B12) [Mass/Vol] 176 pg/mL Normal 50-1500 [facility] Comment on above: Performed By: #### 1 5941145, 084943851, 82061704, 60084466, 7137752, 5902954, 7898051, 95904191, 96043669, 7980584, 6008222 ####[facility] [address] [place] [address] eGFRon 03-31-2023 eGFR 51 mL/min/1.73 m2 Low >=59 [facility] Comment on above: Order Comment: Order added by Discern Expert. Performed By: #### 1 7810262, 506638728, 14525450, 17924966, 2960466, 0217866, 3204148, 63044103, 54703748, 9635759, 4308794 ####[facility] [address] [place] [address] Family Medicine Office/Clini c Noteon 03-24-2023 Family Medicine Office/Clinic Note Chief Complaint Subsequent AWV Review of Systems PHQ Score Initial Depression Screen Score: 0 Physical Exam Vitals & Measurements HR: 68(Peripheral) RR: 16 BP: 130/70 SpO2: 92% HT: 164 cm HT: 65 in WT: 86.6 kg WT: 190.52 lb BMI: 32.2 Assessment/Plan 1. Encounter for annual wellness visit (AWV) in Medicare patient (Z00.00: Encounter for general adult medical examination without abnormal findings) The patient was given a customized and personalized print out of all the current AHRQ USPSTF?s recommendations for preventative services and all current CDC recommended immunizations, relevant risk recommendations and the following patient brochures were given. Reviewed What can I expect during my Medicare preventative care visit CDC-Falls Prevention and home safety screening reviewed. Patient denies any falls in last 12 months, voices no worry about falling, exhibits no problems with sitting and standing. Pt voices understanding with keeping walk way area free of clutter to prevent tripping and/or falling. [place] Advance Directives reviewed, on file in chart. Patient denies any problems with ADL?s and Instrumental ADL?s. Cognitive screening completed with memory and clock face drawing. Immunization Record reviewed with the patient. Discussed Shingrix vaccine with educational handout and availability. COVID vaccines have been administered, immunization record is up to date. Allergies and medications reviewed and up to date. Patient denies concerns with taking medication as prescribed, reviewed OTC medications with patient with medication list up to date. Blood tests were reviewed: Discussed what tests need to be updated. Colonoscopy up to date, due for repeat PRN. DEXA scan and Mammogram was declined. Reviewed concerns with bladder control over past 6 months with no concerns. Reviewed pain symptoms with patient: Reviewed all outside providers that patient follows. Last visit summary notes available in chart and/or have been requested. AWV has been scheduled 01/15/2024 Medicare provides yearly screening for alcohol and depression concerns. This is completed during our Medicare wellness visit for those who do not have a current diagnosis of depression or concerns with alcohol use. I spent a total of 11 minutes on this date of service which included preparing to see the patient, face to face patient care, completing clinical documentation, obtaining and/or reviewing separately obtained history, counseling and educating the patient with handouts. Explanations were provided with reviewing questionnaires. AUDIT risk assessment screening completed, risk score (0) with patient denying concerns with use. Completed PHQ-2 risk assessment for depression with risk score (0), negative findings. Patient has been reminded to notify the provider if there would be a change or concerns with symptoms with fear, unable to sleep, worrying too much or feeling down and/or sad with lost of interest with daily activities. Will continue to monitor with screening yearly during Medicare wellness visits. 2. BMI 32.0-32.9,adult (Z68.32: Body mass index [BMI] 32.0-32.9, adult) The standard range for ages 18 and older is >=18.5 and < 25 kg/m2. Your BMI of 32.2 today was above this range, this falls in the obese category and there are medical benefits to weight loss. BMI monitoring is helpful with identifying a weight problem that may be related to a medical condition, or may increase the risk for medical problems. Your BMI and weight management will be followed at subsequent visits with your provider and monitored for progress. GOAL: promoting healthier lifestyle with diet changes in order to reach a healthy weight. 3. Obesity due to excess calories (E66.09: Other obesity due to excess calories) A combination of diet and exercise can help you lose the weight. Discussed weight loss benefits to dietary management and overall health with increased cardiovascular risks associated with waist measurement >35 inches. Reminded pt importance to work on lowering current body weight with healthy dietary intake choices with understanding of portion control. Reviewed goals and patient's readiness with needing to make a healthier lifestyle change. Will work on increasing daily activity and prevent further weight gain. Will follow up with PCP during office visits for progress. 4. Influenza vaccine needed (Z23: Encounter for immunization) Verbal order per MORENA Donovan to administer HIGH dose Flu vaccine. Reviewed additional recommended immunizations with educational handouts. HIGH dose Flu vaccine administered with today's visit. Patient tolerated well, administered to right deltoid. Reviewed s/s to monitor for and report to PCP. Signed consent form on file in patient's chart. 5. Thoracic aorta atherosclerosis (I70.0: Atherosclerosis of aorta) Stable. Pt to follow with PCP as directed. 6. Peripheral neuropathy (G62.9: Polyneuropathy, unspecified) Pt taking Gabapentin daily as direc (more content not included)... 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 Referral Reason: Disease management Case Type: Chronic Care Management Risk Score: -- Case Status: Active (January 03, 2019) Date Assigned: December 19, 2018 Assigned By: Brice Stephenson RN Date Enrolled: January 03, 2019 Assigned Primary Personnel: Dereck Rosario RN Assigned Secondary Personnel: -- Case Physician: Dakotah Gallardo DO Problems Ongoing Adjustment reaction 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 Bilateral hearing loss COPD exacerbation DDD (degenerative disc disease), cervical Dependent for transportation Edema Elevated diaphragm Emphysema/COPD Enrolled in chronic care management Former smoker Generalized osteoarthritis GERD (gastroesophageal reflux disease) History of stroke HTN (hypertension) Incontinence without sensory awareness Insomnia Irritable bowel syndrome with predominant constipation Leg pain, left Lumbar radiculopathy, right Mixed incontinence OAB (overactive bladder) Obesity due to excess calories Oral thrush Other urethral stricture, female Pain of right sacroiliac joint Patient has healthcare proxy and living will Peripheral neuropathy RLS (restless legs syndrome) Severe obstructive sleep apnea Somatic dysfunction of abdominal region Somatic dysfunction of cervical region Somatic dysfunction of lower extremities Somatic dysfunction of lumbar region Somatic dysfunction of rib cage region Somatic dysfunction of sacral spine Somatic dysfunction of thoracic region Thoracic aorta atherosclerosis Tremor Wears hearing aid in both ears Historical Abdominal pain, generalized Abnormal urinalysis Body mass index (BMI) of 31.0-31.9 in adult Bronchitis with bronchospasm Cervical radiculopathy Chest pain Constipation Dizziness WINTERS (dyspnea on exertion) Exposure to second hand smoke Frequent urination Hernia of abdominal wall History of UTI Leg edema Pain in back 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 Rib pain on right side Right hip pain Screening mammogram, encounter for Urinary urgency Procedure/Surgical History Injection of nerve root of lumbar spine using fluoroscopic guidance (08/23/2022), Injection of sacroiliac joint using fluoroscopic guidance (06/06/2022), Cystoscopy (06/07/2021), Hernia repair (09/07/2020), Injection of therapeutic substance into bladder wall (08/03/2020), Injection of sacroiliac joint using fluoroscopic guidance (06/08/2020), Colonoscopy (11/22/2019), Injection of therapeutic substance into bladder wall (09/09/2019), Cataract extraction (04/17/2019), Cystoscopy (12/03/2018), Injection of therapeutic substance into bladder wall (12/03/2018), left total knee arthroplasty (08/29/2016), Appendectomy, Back Surgery, Bowel obstruction, Breast reduction, CE - Cataract extraction, Corns and callus, mole removal, Tubal ligation. Home Medications albuterol HFA 90 mcg/inh MDI, 2 puff(s), Inhalation, q4hr, PRN, 11 refills albuterol-ipratropiu m Inh Lizzeth 3 mL UD, 3 mL, NEB, QID, PRN, 11 refills amLODIPine 5 mg Tab, 5 mg= 1 tab(s), Oral, Daily, 3 refills Dulcolax Tab-EC, 2-3 tabs, Oral, Daily gabapentin 100 mg Cap, 200 mg= 2 cap(s), Oral, BID, 11 refills Handicap Placard, See Instructions Maxzide-25 oral tablet, 1 tab(s), Oral, Daily, 4 refills Misc Medication, 2 tab(s), Oral, BID Narcan 4 mg/0.1 mL nasal spray, 4 mg, Nasal, As Directed nebulizer supplies, See Instructions, 11 refills omeprazole 20 mg Cap-DR, 20 mg= 1 cap(s), Oral, Daily, 4 refills Refresh, 1 drop(s), Eye-Both, QID Stiolto Respimat 2.5 mcg-2.5 mcg inhalation aerosol, 2 puff(s), Inhalation, q24hr triamcinolone topical 0.1% cream, 1 elva, Topical, BID, 5 refills Allergies Chocolate (Anaphylaxis) Adhesive Bandage (Itching, Rash) aspirin (Nausea) iodinated radiocontrast dyes (hives, Unknown) penicillins (Itching, Rash) sulfamethoxazole (Swelling) Social History Alcohol - No Risk, 08/31/2020 Current, Wine, 1-2 times per month, Previous treatment: None. Alcohol use interferes with work or home: No. Drinks more than intended: No. Others hurt by drinking: No. Ready to change: No. Household alcohol concerns: No., 05/31/2021 Substance Abuse - Denies Substance Abuse, 10/23/2019 Previous treatment: None. Household substance abuse concerns: No., 05/31/2021 Tobacco - Denies Tobacco Use, 11/28/2018 Former smoker, quit more than 30 days ago Tobacco Use:. Never Smokeless Tobacco Use:. Cigarettes, Total pack years: 50. Started age 18.0 Years. Stopped age 50 Years. Previous treatment: None. Household tobacco concerns: No., 11/04/2022 Family History Alcoholism: Father. Metastatic cancer: Mother. Parkinson disease: Father. Parkinson's disease: Father. Primary malignant neoplasm of colon: Mother. Screenings and Assessments 01/03/19 12:08:00 Result Name Value Comment Phone Call Monitoring Consent Agreed to continue (more content not included)... Normal [facility] Patient Educationon 03-07-20 23 Patient Education Gastroenterology Obesity, Adult Obesity is the condition of having too much total body fat. Being overweight or obese means that your weight is greater than what is considered healthy for your body size. Obesity is determined by a measurement called BMI (body mass index). BMI is an estimate of body fat and is calculated from height and weight. For adults, a BMI of 30 or higher is considered obese. Obesity can lead to other health concerns and major illnesses, including: ? Stroke. ? Coronary artery disease (CAD). ? Type 2 diabetes. ? Some types of cancer, including cancers of the colon, breast, uterus, and gallbladder. ? High blood pressure (hypertension). ? High cholesterol. ? Gallbladder stones. Obesity can also contribute to: ? Osteoarthritis. ? Sleep apnea. ? Infertility problems. What are the causes? Common causes of this condition include: ? Eating daily meals that are high in calories, sugar, and fat. ? Drinking high amounts of sugar-sweetened beverages, such as soft drinks. ? Being born with genes that may make you more likely to become obese. ? Having a medical condition that causes obesity, including: ? Hypothyroidism. ? Polycystic ovarian syndrome (PCOS). ? Binge-eating disorder. ? Cardwell syndrome. ? Taking certain medicines, such as steroids, antidepressants, and seizure medicines. ? Not being physically active (sedentary lifestyle). ? Not getting enough sleep. What increases the risk? The following factors may make you more likely to develop this condition: ? Having a family history of obesity. ? Living in an area with limited access to: ? [place], recreation centers, or sidewalks. ? Healthy food choices, such as grocery stores and [place]. What are the signs or symptoms? The main sign of this condition is having too much body fat. How is this diagnosed? This condition is diagnosed based on: ? Your BMI. If you are an adult with a BMI of 30 or higher, you are considered obese. ? Your waist circumference. This measures the distance around your waistline. ? Your skinfold thickness. Your health care provider may gently pinch a fold of your skin and measure it. You may have other tests to check for underlying conditions. How is this treated? Treatment for this condition often includes changing your lifestyle. Treatment may include some or all of the following: ? Dietary changes. This may include developing a healthy meal plan. ? Regular physical activity. This may include activity that causes your heart to beat faster (aerobic exercise) and strength training. Work with your health care provider to design an exercise program that works for you. ? Medicine to help you lose weight if you are unable to lose one pound a week after six weeks of healthy eating and more physical activity. ? Treating conditions that cause the obesity (underlying conditions). ? Surgery. Surgical options may include gastric banding and gastric bypass. Surgery may be done if: ? Other treatments have not helped to improve your condition. ? You have a BMI of 40 or higher. ? You have life-threatening health problems related to obesity. Follow these instructions at home: Eating and drinking ? Follow recommendations from your health care provider about what you eat and drink. Your health care provider may advise you to: ? Limit fast food, sweets, and processed snack foods. ? Choose low-fat options, such as low-fat milk instead of whole milk. ? Eat five or more servings of fruits or vegetables every day. ? Choose healthy foods when you eat out. ? Keep low-fat snacks available. ? Limit sugary drinks, such as soda, fruit juice, sweetened iced tea, and flavored milk. ? Drink enough water to keep your urine pale yellow. ? Do not follow a fad diet. Fad diets can be unhealthy and even dangerous. ? Other healthful choices include: ? Eat at home more often. This gives you more control over what you eat. ? Learn to read food labels. This will help you understand how much food is considered one serving. ? Learn what a healthy serving size is. Physical activity ? Exercise regularly, as told by your health care provider. ? Most adults should get up to 150 minutes of moderate-intensity exercise every week. ? Ask your health care provider what types of exercise are safe for you and how often you should exercise. ? Warm up and stretch before being active. ? Cool down and stretch after being active. ? Rest between periods of activity. Lifestyle ? Work with your health care provider and a dietitian to set a weight-loss goal that is healthy and reasonable for you. ? Limit your screen time. ? Find ways to reward yourself that do not involve food. ? Do not drink alcohol if: ? Your health care provider tells you not to drink. ? You are , may be , or are planning to become . ? If you drink alcohol: ? Limit how much you have to (more content not included)... [facility] Immunization Recordson 02-09 Immunization Records [id number] 1 [id number] 9#1.00TIFF [facility] Population Healthon 01-14-20 Population Health Case Information Case Priority: None Programs: -- Referral Source: Dock Superintendent Referral Reason: Disease management Case Type: Chronic Care Management Risk Score: -- Case Status: Active (January 03, 2019) Date Assigned: December 19, 2018 Assigned By: Brice Stephenson RN Date Enrolled: January 03, 2019 Assigned Primary Personnel: Dereck Rosario RN Assigned Secondary Personnel: Aminata Mendieta RN Case Physician: Dakotah Gallardo DO Problems Ongoing Adjustment reaction 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 Bilateral hearing loss COPD exacerbation DDD (degenerative disc disease), cervical Dependent for transportation Edema Elevated diaphragm Emphysema/COPD Enrolled in chronic care management Former smoker Generalized osteoarthritis GERD (gastroesophageal reflux disease) History of stroke HTN (hypertension) Incontinence without sensory awareness Insomnia Irritable bowel syndrome with predominant constipation Leg pain, left Lumbar radiculopathy, right Mixed incontinence OAB (overactive bladder) Obesity due to excess calories Oral thrush Other urethral stricture, female Pain of right sacroiliac joint Patient has healthcare proxy and living will Peripheral neuropathy RLS (restless legs syndrome) Severe obstructive sleep apnea Somatic dysfunction of abdominal region Somatic dysfunction of cervical region Somatic dysfunction of lower extremities Somatic dysfunction of lumbar region Somatic dysfunction of rib cage region Somatic dysfunction of sacral spine Somatic dysfunction of thoracic region Thoracic aorta atherosclerosis Tremor Wears hearing aid in both ears Historical Abdominal pain, generalized Abnormal urinalysis Body mass index (BMI) of 31.0-31.9 in adult Bronchitis with bronchospasm Cervical radiculopathy Chest pain Constipation Dizziness WINTERS (dyspnea on exertion) Exposure to second hand smoke Frequent urination Hernia of abdominal wall History of UTI Leg edema Pain in back 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 Rib pain on right side Right hip pain Screening mammogram, encounter for Urinary urgency Procedure/Surgical History Injection of nerve root of lumbar spine using fluoroscopic guidance (08/23/2022), Injection of sacroiliac joint using fluoroscopic guidance (06/06/2022), Cystoscopy (06/07/2021), Hernia repair (09/07/2020), Injection of therapeutic substance into bladder wall (08/03/2020), Injection of sacroiliac joint using fluoroscopic guidance (06/08/2020), Colonoscopy (11/22/2019), Injection of therapeutic substance into bladder wall (09/09/2019), Cataract extraction (04/17/2019), Cystoscopy (12/03/2018), Injection of therapeutic substance into bladder wall (12/03/2018), left total knee arthroplasty (08/29/2016), Appendectomy, Back Surgery, Bowel obstruction, Breast reduction, CE - Cataract extraction, Corns and callus, mole removal, Tubal ligation. Home Medications albuterol HFA 90 mcg/inh MDI, 2 puff(s), Inhalation, q4hr, PRN, 11 refills albuterol-ipratropiu m Inh Lizzeth 3 mL UD, 3 mL, NEB, QID, PRN, 11 refills amLODIPine 5 mg Tab, 5 mg= 1 tab(s), Oral, Daily, 3 refills Dulcolax Tab-EC, 2-3 tabs, Oral, Daily gabapentin 100 mg Cap, 200 mg= 2 cap(s), Oral, BID, 11 refills Handicap Placard, See Instructions Maxzide-25 oral tablet, 1 tab(s), Oral, Daily, 4 refills Misc Medication, 2 tab(s), Oral, BID Narcan 4 mg/0.1 mL nasal spray, 4 mg, Nasal, As Directed nebulizer supplies, See Instructions, 11 refills omeprazole 20 mg Cap-DR, 20 mg= 1 cap(s), Oral, Daily, 4 refills Refresh, 1 drop(s), Eye-Both, QID Stiolto Respimat 2.5 mcg-2.5 mcg inhalation aerosol, 2 puff(s), Inhalation, q24hr triamcinolone topical 0.1% cream, 1 elva, Topical, BID, 5 refills Allergies Chocolate (Anaphylaxis) Adhesive Bandage (Itching, Rash) aspirin (Nausea) iodinated radiocontrast dyes (hives, Unknown) penicillins (Itching, Rash) sulfamethoxazole (Swelling) Social History Alcohol - No Risk, 08/31/2020 Current, Wine, 1-2 times per month, Previous treatment: None. Alcohol use interferes with work or home: No. Drinks more than intended: No. Others hurt by drinking: No. Ready to change: No. Household alcohol concerns: No., 05/31/2021 Substance Abuse - Denies Substance Abuse, 10/23/2019 Previous treatment: None. Household substance abuse concerns: No., 05/31/2021 Tobacco - Denies Tobacco Use, 11/28/2018 Former smoker, quit more than 30 days ago Tobacco Use:. Never Smokeless Tobacco Use:. Cigarettes, Total pack years: 50. Started age 18.0 Years. Stopped age 50 Years. Previous treatment: None. Household tobacco concerns: No., 11/04/2022 Family History Alcoholism: Father. Metastatic cancer: Mother. Parkinson disease: Father. Parkinson's disease: Father. Primary malignant neoplasm of colon: Mother. Screenings and Assessments 01/03/19 12:08:00 Result Name Value Comment Phone Call Monitoring Consent Ag (more content not included)... Normal [facility] Consent for Flu Vaccineon Consent for Flu Vaccine [id number] #1.00TIFF 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 Reason: Disease management Case Type: Chronic Care Management Risk Score: -- Case Status: Active (January 03, 2019) Date Assigned: December 19, 2018 Assigned By: Brice Stephenson RN Date Enrolled: January 03, 2019 Assigned Primary Personnel: Aminata Mendieta RN Assigned Secondary Personnel: -- Case Physician: Dakotah aGllardo DO Ongoing Adjustment reaction 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 Bilateral hearing loss COPD exacerbation DDD (degenerative disc disease), cervical Dependent for transportation Edema Elevated diaphragm Emphysema/COPD Enrolled in chronic care management Former smoker Generalized osteoarthritis GERD (gastroesophageal reflux disease) History of stroke HTN (hypertension) Incontinence without sensory awareness Insomnia Irritable bowel syndrome with predominant constipation Leg pain, left Lumbar radiculopathy, right Mixed incontinence OAB (overactive bladder) Obesity due to excess calories Oral thrush Other urethral stricture, female Pain of right sacroiliac joint Patient has healthcare proxy and living will Peripheral neuropathy RLS (restless legs syndrome) Severe obstructive sleep apnea Somatic dysfunction of abdominal region Somatic dysfunction of cervical region Somatic dysfunction of lower extremities Somatic dysfunction of lumbar region Somatic dysfunction of rib cage region Somatic dysfunction of sacral spine Somatic dysfunction of thoracic region Thoracic aorta atherosclerosis Tremor Wears hearing aid in both ears Historical Abdominal pain, generalized Abnormal urinalysis Body mass index (BMI) of 31.0-31.9 in adult Bronchitis with bronchospasm Cervical radiculopathy Chest pain Constipation Dizziness WINTERS (dyspnea on exertion) Exposure to second hand smoke Frequent urination Hernia of abdominal wall History of UTI Leg edema Pain in back 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 Rib pain on right side Right hip pain Screening mammogram, encounter for Urinary urgency Procedure/Surgical History Injection of nerve root of lumbar spine using fluoroscopic guidance (08/23/2022), Injection of sacroiliac joint using fluoroscopic guidance (06/06/2022), Cystoscopy (06/07/2021), Hernia repair (09/07/2020), Injection of therapeutic substance into bladder wall (08/03/2020), Injection of sacroiliac joint using fluoroscopic guidance (06/08/2020), Colonoscopy (11/22/2019), Injection of therapeutic substance into bladder wall (09/09/2019), Cataract extraction (04/17/2019), Cystoscopy (12/03/2018), Injection of therapeutic substance into bladder wall (12/03/2018), left total knee arthroplasty (08/29/2016), Appendectomy, Back Surgery, Bowel obstruction, Breast reduction, CE - Cataract extraction, Corns and callus, mole removal, Tubal ligation. Home Medications albuterol HFA 90 mcg/inh MDI, 2 puff(s), Inhalation, q4hr, PRN, 11 refills albuterol-ipratropiu m Inh Lizzeth 3 mL UD, 3 mL, NEB, QID, PRN, 11 refills amLODIPine 5 mg Tab, 5 mg= 1 tab(s), Oral, Daily, 3 refills Dulcolax Tab-EC, 2-3 tabs, Oral, Daily gabapentin 100 mg Cap, 200 mg= 2 cap(s), Oral, BID, 11 refills Handicap Placard, See Instructions Maxzide-25 oral tablet, 1 tab(s), Oral, Daily, 4 refills Misc Medication, 2 tab(s), Oral, BID Narcan 4 mg/0.1 mL nasal spray, 4 mg, Nasal, As Directed nebulizer supplies, See Instructions, 11 refills omeprazole 20 mg Cap-DR, 20 mg= 1 cap(s), Oral, Daily, 4 refills Refresh, 1 drop(s), Eye-Both, QID Stiolto Respimat 2.5 mcg-2.5 mcg inhalation aerosol, 2 puff(s), Inhalation, q24hr triamcinolone topical 0.1% cream, 1 elva, Topical, BID, 5 refills Allergies Chocolate (Anaphylaxis) Adhesive Bandage (Itching, Rash) aspirin (Nausea) iodinated radiocontrast dyes (hives, Unknown) penicillins (Itching, Rash) sulfamethoxazole (Swelling) Social History Alcohol - No Risk, 08/31/2020 Current, Wine, 1-2 times per month, Previous treatment: None. Alcohol use interferes with work or home: No. Drinks more than intended: No. Others hurt by drinking: No. Ready to change: No. Household alcohol concerns: No., 05/31/2021 Substance Abuse - Denies Substance Abuse, 10/23/2019 Previous treatment: None. Household substance abuse concerns: No., 05/31/2021 Tobacco - Denies Tobacco Use, 11/28/2018 Former smoker, quit more than 30 days ago Tobacco Use:. Never Smokeless Tobacco Use:. Cigarettes, Total pack years: 50. Started age 18.0 Years. Stopped age 50 Years. Previous treatment: None. Household tobacco concerns: No., 11/04/2022 Family History Alcoholism: Father. Metastatic cancer: Mother. Parkinson disease: Father. Parkinson's disease: Father. Primary malignant neoplasm of colon: Mother. Screenings and Assessments 01/03/19 12:08:00 Result Name Value Comment Phone Call Monitoring Consent Agreed to contin (more content not included)... Normal [facility] 01-10-2023 Screens [id number]# 1.00TIFF Normal [facility] Ambulatory Visit Summaryon 1 Ambulatory Visit Summary SOIRIS HERRERA :1945 Visit Date:01/09/2023 Ambulatory Visit Instructions Your Diagnosis Encounter for annual wellness visit (AWV) in Medicare patient BMI 32.0-32.9,adult Obesity due to excess calories Influenza vaccine needed Thoracic aorta atherosclerosis Peripheral neuropathy Patient has healthcare proxy and living will Emphysema/COPD DDD (degenerative disc disease), cervical Bilateral hearing loss Dependent for transportation These Are Your Goals Reduce exacerbations of COPD, will understand benefits to daily treatment of COPD. Interventions: 10/12/21 Fill Rx for Rescue pack and call CN if starts medications - Done Start Water aerobic exercises beginning 01/08/19 2 days per week to include water walking - Done Use inhaler as prescribed by PCP - Done Use nebulizer machine as needed for SOB for COPD. - Progressing Will have improvement in lower leg swelling Interventions: 06/08/21 Patient is going to try to return to water aerobics once per week, - Not done Decrease sodium intake to 2000 mg daily, do not use salt shaker. - Progressing Keep appointment with Dr. Ball on 10/13/20 at 0920 - Done Keep legs elevated when sitting - Progressing Weigh daily, record and notify CN of 3# weight gain in day or %3 over a week. - Not done Reduce frequency of Urinary Tract infections Interventions: Botox injections for urinary incontinence every 6 months as needed. - Done Call office at first signs and symptoms of UTI for urinalysis. - Progressing Drink 64 oz of fluids each day to stay hydrated. - Progressing Go to restroom at first sign of urinary urge and not hold. - Progressing See urologist as needed. - Progressing Your Care Team Attending Physician - Dakotah Gallardo DO Primary Care Physician - Dakotah Gallardo DO This Is Your Medications List Misc Prescription (Handicap Placard) Misc Prescription (nebulizer supplies) Non-Formulary Medication (Misc Medication) albuterol (albuterol HFA 90 mcg/inh MDI) albuterol-ipratropiu m (albuterol-ipratropi um Inh Lizzeth 3 mL UD) amlodipine (amLODIPine 5 mg Tab) bisacodyl (Dulcolax Tab-EC) gabapentin (gabapentin 100 mg Cap) hydrochlorothiazide- triamterene (Maxzide-25 oral tablet) naloxone (Narcan 4 mg/0.1 mL nasal spray) ocular lubricant (Refresh) olodaterol-tiotropiu m (Stiolto Respimat 2.5 mcg-2.5 mcg inhalation aerosol) omeprazole (omeprazole 20 mg Cap-DR) triamcinolone topical (triamcinolone Top 0.1% Crm 15 gram) Procedures Performed Injection of nerve root of lumbar spine using fluoroscopic guidance (08/23/2022), Injection of sacroiliac joint using fluoroscopic guidance (06/06/2022), Cystoscopy (06/07/2021), Hernia repair (09/07/2020), Injection of therapeutic substance into bladder wall (08/03/2020), Injection of sacroiliac joint using fluoroscopic guidance (06/08/2020), Colonoscopy (11/22/2019), Injection of therapeutic substance into bladder wall (09/09/2019), Cataract extraction (04/17/2019), Cystoscopy (12/03/2018), Injection of therapeutic substance into bladder wall (12/03/2018), left total knee arthroplasty (08/29/2016), Appendectomy, Back Surgery, Bowel obstruction, Breast reduction, CE - Cataract extraction, Corns and callus, mole removal, Tubal ligation. What to do next Scheduled Follow-Up Appointments Monday 9:40 AM EST With: Dakotah Gallardo DO Where: [facility] Normal [address] [place] [address]-\.br\ Medications\.br\ What How Much When Why Instructions\.br\ Changed triamcinolone topical (triamcinolone Top 0.1% Crm 15 gram) 1 Application Topical 2 times a day\.br\ Unchanged albuterol (albuterol HFA 90 mcg/ inh MDI) 2 Puffs Inhalation Every 4 hours as needed for for wheezing\.br\ Unchanged albuterol-ipratrop ium (albuterol-ipratro pium Inh Lizzeth 3 mL UD) 3 Milliliter Nebulized inhalation (aerosol) 4 times a day as needed for Wheezing\.br\ Unchanged amlodipine (amLODIPine 5 mg Tab) 1 Tablets By Mouth Every day\.br\ Unchanged bisacodyl (Dulcolax Tab-EC) 2-3 tabs By Mouth Every day adjusts for constipation concerns \.br\ Unchanged gabapentin (gabapentin 100 mg Cap) 2 Capsules By Mouth 2 times a day DDD (degenerative disc disease), cervical Restless leg Acute low back pain with sciatica\.br\ Unchanged hydrochlorothiazid e-triamterene (Maxzide-25 oral tablet) 1 Tablets By Mouth Every day\.br\ Unchanged Misc Prescription (Handicap Placard) See instructions Expires in 5 years \.br\ Unchanged Misc Prescription (nebulizer supplies) See instructions nebulizer supplies dx J44.9 \.br\ Unchanged naloxone (Narcan 4 mg/ 0.1 mL nasal spray) 4 Milligram Nasal Inhalation As Directed for suspected overdose symptoms \.br\ Unchanged Non-Formulary Medication (Misc Medication) 2 Tablets By Mouth 2 times a day Gagandeep gets from Dr. Khan \.br\ Unchanged ocular lubricant (Refresh) 1 Drops Both eyes 4 times a day\.br\ Unchanged olodaterol-tiotrop ium (Stiolto Respimat 2.5 mcg-2.5 mcg inhalation aerosol) 2 Puffs Inhalation Every 24 hours\.br\ Unchanged omeprazole (omeprazole 20 mg Cap-DR) 1 Capsules By Mouth Every day Chronic GERD\.br\ Allergies\.br\ Chocolate (Anaphylaxis)\.br\ Adhesive Bandage (Itching, Rash)\.br\ aspirin (Nausea)\.br\ iodinated radiocontrast dyes (hives, Unknown)\.br\ penicillins (Itching, Rash)\.br\ sulfamethoxazole (Swelling)\.br\ Problems\.br\ Ongoing - Any problem that you are currently receiving treatment for.\.br\ Adjustment reaction\.br\ 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\.br\ Bilateral hearing loss\.br\ COPD exacerbation\.br\ DDD (degenerative disc disease), cervical\.br\ Dependent for transportation\.br \ Edema\.br\ Elevated diaphragm\.br\ Emphysema/COPD\.br \ Enrolled in chronic care management\.br\ Former smoker\.br\ Generalized osteoarthritis\.br \ GERD (gastroesophageal reflux disease)\.br\ History of stroke\.br\ HTN (hypertension)\.br \ Incontinence without sensory awareness\.br\ Insomnia\.br\ Irritable bowel syndrome with predominant constipation\.br\ Leg pain, left\.br\ Lumbar radiculopathy, right\.br\ Mixed incontinence\.br\ OAB (overactive bladder)\.br\ Obesity due to excess calories\.br\ Oral thrush\.br\ Other urethral stricture, female\.br\ Pain of right sacroiliac joint\.br\ Patient has healthcare proxy and living will\.br\ Peripheral neuropathy\.br\ RLS (restless legs syndrome)\.br\ Severe obstructive sleep apnea\.br\ Somatic dysfunction of abdominal region\.br\ Somatic dysfunction of cervical region\.br\ Somatic dysfunction of lower extremities\.br\ Somatic dysfunction of lumbar region\.br\ Somatic dysfunction of rib cage region\.br\ Somatic dysfunction of sacral spine\.br\ Somatic dysfunction of thoracic region\.br\ Thoracic aorta atherosclerosis\.b r\ Tremor\.br\ Wears hearing aid in both ears\.br\ Historical - Any problem that you are no longer receiving treatment for.\.br\ Abdominal pain, generalized\.br\ Abnormal urinalysis\.br\ Body mass index (BMI) of 31.0-31.9 in adult\.br\ Bronchitis with bronchospasm\.br\ Cervical radiculopathy\.br\ Chest pain\.br\ Constipation\.br\ Dizziness\.br\ WINTERS (dyspnea on exertion)\.br\ Exposure to second hand smoke\.br\ Frequent urination\.br\ Hernia of abdominal wall\.br\ History of UTI\.br\ Leg edema\.br\ Pain in back\.br\ 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\.br\ Rib pain on right side\.br\ Right hip pain\.br\ Screening mammogram, encounter for\.br\ Urinary urgency\.br\ Patient Survey\.br\ You may receive a survey via text or e-mail asking about your office visit. Please share your experience with us by completing your survey. We appreciate your feedback and thank you for choosing us for your care.\.br\ Education Materials\.br\ Preventive Care 65 Years and Older, Female\.br\ Preventive care refers to lifestyle choices and visits with your health care provider that can promote health and wellness. Preventive care visits are also called wellness exams.\.br\ What can I expect for my preventive care visit?\.br\ Counseling\.br\ Your health care provider may ask you questions about your:\.br\ ? \.br\ Medical history, including:\.br\ ? \.br\ Past medical problems.\.br\ ? \.br\ Family medical history.\.br\ ? \.br\ and menstrual history.\.br\ ? \.br\ History of falls.\.br\ ? \.br\ Current health, including:\.br\ ? \.br\ Memory and ability to understand (cognition).\.br\ ? \.br\ Emotional well-being.\.br\ ? \.br\ Home life and relationship well-being.\.br\ ? \.br\ Sexual activity and sexual health.\.br\ ? \.br\ Lifestyle, including:\.br\ ? \.br\ Alcohol, nicotine or tobacco, and drug use.\.br\ ? \.br\ Access to firearms.\.br\ ? \.br\ Diet, exercise, and sleep habits.\.br\ ? \.br\ Work and work environment.\.br\ ? \.br\ Sunscreen use.\.br\ ? \.br\ Safety issues such as seatbelt and bike helmet use.\.br\ Physical exam\.br\ Your health care provider will check your:\.br\ ? \.br\ Height and weight. These may be used to calculate your BMI (body mass index). BMI is a measurement that tells if you are at a healthy weight.\.br\ ? \.br\ Waist circumference. This measures the distance around your waistline. This measurement also tells if you are at a healthy weight and may help predict your risk of certain diseases, such as type 2 diabetes and high blood pressure.\.br\ ? \.br\ Heart rate and blood pressure.\.br\ ? \.br\ Body temperature.\.br\ ? \.br\ Skin for abnormal spots.\.br\ What immunizations do I need?\.br\ \.br\ Vaccines are usually given at various ages, according to a schedule. Your health care provider will recommend vaccines for you based on your age, medical history, and lifestyle or other factors, such as travel or where you work.\.br\ What tests do I need?\.br\ Screening\.br\ Your health care provider may recommend screening tests for certain conditions. This may include:\.br\ ? \.br\ Lipid and cholesterol levels.\.br\ ? \.br\ Hepatitis C test.\.br\ ? \.br\ Hepatitis B test.\.br\ ? \.br\ HIV (human immunodeficiency virus) test.\.br\ ? \.br\ STI (sexually transmitted infection) testing, if you are at risk.\.br\ ? \.br\ Lung cancer screening.\.br\ ? \.br\ Colorectal cancer screening.\.br\ ? \.br\ Diabetes screening. This is done by checking your blood sugar (glucose) after you have not eaten for a while (fasting).\.br\ ? \.br\ Mammogram. Talk with your health care provider about how often you should have regular mammograms.\.br\ ? \.br\ BRCA-related cancer screening. This may be done if you have a family history of breast, ovarian, tubal, or peritoneal cancers.\.br\ ? \.br\ Bone density scan. This is done to screen for osteoporosis.\.br\ Talk with your health care provider about your test results, treatment options, and if necessary, the need for mo [facility] Consultation Noteon 12-03-19 Consultation Note [id number]#[id number]:[id number] Normal [facility] Medicine Office/Clini c Noteon 11-04-2022 Family Medicine Office/Clinic Note Chief Complaint OMT HPI Staff Please speak with patient about scheduling an AWV. Patient here to F/U on OMT. JOE 09/16/22. Patient concerns of what medications might be making her very sleepy. States had EMG this past week but have not been told results yet. History of Present Illness 77 Years old Female here to f/u for _ 1 mo f/u procedure Diagnoses This Visit DDD (degenerative disc disease), cervical (M50.30) Lumbar radiculopathy, right (M54.16) Chief Complaint confirmed with the patient Today, the patient reports their symptoms are PRESENT and is requesting OMT again. Based on their report of symptoms and my exam findings, I believe OMT is appropriate today. Today, the patient describes - see below stiffness overall, pain has improved since her last appt EMG reveals polyneuropathy in her bilat LE mild S1 radiculopathy is now taking percocet only at bedtime taking two gabapentin in the morning and two at night Review of Systems PHQ Score Initial Depression Screen Score: 0 ROS 13 point ROS negative except for HPI Physical Exam Vitals & Measurements HR: 78(Peripheral) BP: 110/70 SpO2: 90% HT: 65 in HT: 164 cm WT: 85 kg WT: 187 lb BMI: 31.6 PHYSICAL EXAM Constitutional: Vital signs reviewed; OSIRIS HERRERA is well nourished, no acute distress - Lungs: Clear to auscultation, non-labored respiration - expansion is symmetric Heart: Normal rate and rhythm, normal peripheral perfusion MSK: Gait is somewhat antalgic - leaning forward at this waist Lumbar paraspinal muscle tight bilaterally Core muscles are sub-optimal in tension at rest Thoracic paraspinal muscle is tender and tight on the left Skin: Warm, dry Neurologic: Awake, alert and oriented, speech is normal, no focal deficits, CN II-XII grossly intact Psychiatric: Cooperative, appropriate mood and affect, judgement is appropriate Procedure Osteopathic Manipulation Head: OA dysfunction - treated with BLT and FPR - with objective and subjective improvement Cervical Spine: Reduced range of motion, tenderness at the insertion of the middle scalene on rib 1 on right - treated with BLT and FPR - with objective and subjective improvement Thoracic Spine: Chronic and acute tissue texture changes of the trapezius, rhomboid on the left - treated with myofascial, BLT and FPR - with objective and subjective improvement Lumbar Spine: Lumbar paraspinal restriction on the right - treated with myofascial, BLT and FPR - with objective and subjective improvement Sacral: SI dysfunction bilat - treated with BLT and FPR - with objective and subjective improvement Rib: inhalation dysfunction of rib ten on the right - treated with rib raising and BLT - with objective and subjective improvement Assessment/Plan 1. DDD (degenerative disc disease), cervical (M50.30: Other cervical disc degeneration, unspecified cervical region) Chronic. Stable Multifactorial etiology Medication does seem to provide ample benefit Does get benefit from OMT Discussed the importance of optimizing mechanics Discussed the rationale of manipulation in the future *ching more active at the [facility] [facility], playing cards, meeting friends for lunch - life is back to normal F/u prn. 2. Lumbar radiculopathy, right (M54.16: Radiculopathy, lumbar region) see #1 3. 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 Emphysema/COPD (J43.1: Panlobular emphysema) Chronic Stable Asymptomatic today No longer a smoker Would like to see this patient follow with pulmonology Discussed how controllers are meant to reduce exacerbations Encouraged consistency with controllers Consider pulmonary rehab / exercise regimen F/u annually 5. Somatic dysfunction of cervical region (M99.01: Segmental and somatic dysfunction of cervical region) Manipulation described as above The patient tolerated manipulation well and the procedure went as planned without incident Range of motion and function have improved with objective improvement of signs and subjective improvement of symptoms Patient to follow-up in 3-4 weeks for additional manipulation if needed (or sooner PRN) Discussed the importance of core strength and postural exercises 6. Somatic dysfunction of thoracic region (M99.02: Segmental and somatic dysfunction of thoracic region) 7. Somatic dysfunction of lumbar region (M99.03: Segmental and somatic dysfunction of lumbar region) 8. Somatic dysfunction of lower extremities (M99.06: Segmental and somatic dysfunction of lower extremity) 9. Somatic dysfunction of sacral spine (M99.04: Segmental and somatic dysfunction of sacral region) 10. Somatic dysfunction of rib cage region (M99.08: Segmental and somatic dysfunction of rib cage) Adult BMI 31.0-31.9 kg/sq m (Z68.31: Body mass index [BMI] 31.0-31.9, adult) Opioids for chronic pain addendum ? Brief Pain Inven (more content not included)... [facility] Comment on above: Result Comment: Elec tronically Signed By: Dakotah Gallardo DO\.br\Date and Time Signed: 11/04/22 17:16 EDT Physician Referralon 023 Physician Referral [id number] #1.00CD:127 [facility] Physician Referralon 023 Physician Referral [id number] 1#1.00CD:127 [facility] XR Ankle 3+ Views Righton XR Ankle 3+ Views Right Exam Date/Time: 10/24/2022 12:05 EDT Reason for Exam: [id number] Report PLEASE SEE XR Knee Complete 4+ Views Right REPORT DATED: 10/24/2022. Ordering Provider: Marilu Cornell FINAL REPORT Dictated: 10/26/2022 5:44 am Roney Prado MD Signed (Electronic Signature): 10/26/2022 5:44 am Signed by: Roney Prado MD Transcribed by: CAROLYN Technologist: JOSE ALBERTO Technical Comments Radiation Dose: Ka,r in mGy = na DAP = na [facility] XR Knee Complete 4+ Views Ri ton 10-26-2022 XR Knee Complete 4+ Views Right Exam Date/Time: 10/24/2022 12:05 EDT Reason for Exam: [id number] Report IMPRESSION: MILD OSTEOARTHROSIS OF THE MEDIAL COMPARTMENT OF THE RIGHT KNEE. EXAM: XR Knee Complete 4+ Views Right, XR Tib/Fib Right 2 View, XR Ankle 3+ Views Right DATE: 10/24/2022 CLINICAL HISTORY: M79.604. COMPARISON: None available. TECHNIQUE: PA erect, routine lateral, internal and external oblique radiographs of the right knee, AP and lateral radiographs of the right tibia and fibula, and AP, mediolateral, medial and external oblique radiographs of the right ankle were obtained. FINDINGS: Mild osteoarthritic changes are present in the medial compartment of the right knee. There is no fracture,sizable joint effusion dislocation, worrisome bone destruction, radiodense foreign bodies, or other findings of concern identified elsewhere. Ordering Provider: Marilu Cornell FINAL REPORT Dictated: 10/26/2022 5:43 am Roney Prado MD Signed (Electronic Signature): 10/26/2022 5:43 am Signed by: Roney Prado MD Transcribed by: CAROLYN Technologist: JOSE ALBERTO Technical Comments Radiation Dose: Ka,r in mGy = na DAP = na [facility] XR Tib/Fib Right 2 Viewon XR Tib/Fib Right 2 View Exam Date/Time: 10/24/2022 12:05 EDT Reason for Exam: [id number] Report PLEASE SEE XR Knee Complete 4+ Views Right REPORT DATED: 10/24/2022. Ordering Provider: Marilu Cornell FINAL REPORT Dictated: 10/26/2022 5:43 am Roney Prado MD Signed (Electronic Signature): 10/26/2022 5:43 am Signed by: Roney Prado MD Transcribed by: CAROLYN Technologist: JOSE ALBERTO Technical Comments Radiation Dose: Ka,r in mGy = na DAP = na [facility] EMG Electromyographyon 10-25 EMG Electromyography [id number]# 1.00CD:127 [facility] Consent for Treatmenton 10-11 Consent for Treatment [id number] #1.00CD:127 [facility] Physician Orderon 10-24-2022 Physician Order [id number] #1.00CD:127 [facility] Ambulatory Visit Summaryon 0 09-16-2022 Ambulatory Visit Summary OSIRIS HERRERA :1945 Visit Date:09/16/2022 Ambulatory Visit Instructions Your Diagnosis Lumbar radiculopathy, right Adjustment reaction DDD (degenerative disc disease), cervical Elevated diaphragm Emphysema/COPD Somatic dysfunction of cervical region Somatic dysfunction of thoracic region Somatic dysfunction of rib cage region Somatic dysfunction of abdominal region Somatic dysfunction of lumbar region Somatic dysfunction of sacral spine Adult BMI 32.0-32.9 kg/sq m These Are Your Goals Reduce exacerbations of COPD, will understand benefits to daily treatment of COPD. Interventions: 10/12/21 Fill Rx for Rescue pack and call CN if starts medications - Done Start Water aerobic exercises beginning 01/08/19 2 days per week to include water walking - Done Use inhaler as prescribed by PCP - Progressing Use nebulizer machine as needed for SOB for COPD. - Progressing Will have improvement in lower leg swelling Interventions: 06/08/21 Patient is going to try to return to water aerobics once per week, - Not done Decrease sodium intake to 2000 mg daily, do not use salt shaker. - Progressing Keep appointment with Dr. Ball on 10/13/20 at 0920 - Done Keep legs elevated when sitting Weigh daily, record and notify CN of 3# weight gain in day or %3 over a week. Reduce frequency of Urinary Tract infections Interventions: Botox injections for urinary incontinence every 6 months as needed. - Done Call office at first signs and symptoms of UTI for urinalysis. - Progressing Drink 64 oz of fluids each day to stay hydrated. - Progressing Go to restroom at first sign of urinary urge and not hold. - Progressing See urologist as needed. - Progressing Your Care Team Attending Physician - Dakotah Gallardo DO Primary Care Physician - Dakotah Gallardo DO This Is Your Medications List Misc Prescription (nebulizer supplies) Non-Formulary Medication (Misc Medication) acetaminophen (Tylenol Extra Strength 500 mg oral tablet) acetaminophen-oxycod one (Percocet 5 mg-325 mg oral tablet) acetaminophen-oxycod one (Percocet 5 mg-325 mg oral tablet) albuterol (albuterol HFA 90 mcg/inh MDI) albuterol-ipratropiu m (albuterol-ipratropi um Inh Lizzeth 3 mL UD) amlodipine (amLODIPine 5 mg Tab) bisacodyl (Dulcolax Tab-EC) cyclobenzaprine (cyclobenzaprine 5 mg Tab) gabapentin (gabapentin 100 mg Cap) hydrochlorothiazide- triamterene (Maxzide-25 oral tablet) naloxone (Narcan 4 mg/0.1 mL nasal spray) ocular lubricant (Refresh) olodaterol-tiotropiu m (Stiolto Respimat 2.5 mcg-2.5 mcg inhalation aerosol) omeprazole (omeprazole 20 mg Cap-DR) triamcinolone topical (triamcinolone topical 0.1% cream) Procedures Performed Injection of nerve root of lumbar spine using fluoroscopic guidance (08/23/2022), Injection of sacroiliac joint using fluoroscopic guidance (06/06/2022), Cystoscopy (06/07/2021), Hernia repair (09/07/2020), Injection of therapeutic substance into bladder wall (08/03/2020), Injection of sacroiliac joint using fluoroscopic guidance (06/08/2020), Colonoscopy (11/22/2019), Injection of therapeutic substance into bladder wall (09/09/2019), Cataract extraction (04/17/2019), Cystoscopy (12/03/2018), Injection of therapeutic substance into bladder wall (12/03/2018), left total knee arthroplasty (08/29/2016), Appendectomy, Back Surgery, Bowel obstruction, Breast reduction, CE - Cataract extraction, Corns and callus, mole removal, Tubal ligation. Discharge Vitals Heart Rate (Peripheral) 75 Blood Pressure 100/60 Height 164 cm Height 65 in Weight 87.7 kg Weight 192.94 lb BMI 32.61 What to do next Scheduled Follow-Up Appointments Monday 10:15 AM EDT With: GARY BANSAL, Reyes Sandoval Where: [facility] Normal [address] [place] [address]-\.br\ Medications\.br\ What How Much When Why Instructions\.br\ Unchanged acetaminophen (Tylenol Extra Strength 500 mg oral tablet) 2 Tablets By Mouth Every 6 hours as needed for as needed for pain\.br\ Unchanged acetaminophen-oxyc odone (Percocet 5 mg-325 mg oral tablet) 1 Tablets By Mouth 2 times a day Acute low back pain with sciatica Lumbar radiculopathy, right\.br\ Unchanged acetaminophen-oxyc odone (Percocet 5 mg-325 mg oral tablet) 1 Tablets By Mouth 2 times a day Acute low back pain with sciatica Lumbar radiculopathy, right\.br\ Unchanged albuterol (albuterol HFA 90 mcg/ inh MDI) 2 Puffs Inhalation Every 4 hours as needed for for wheezing\.br\ Unchanged albuterol-ipratrop ium (albuterol-ipratro pium Inh Lizzeth 3 mL UD) 3 Milliliter Nebulized inhalation (aerosol) 4 times a day as needed for Wheezing\.br\ Unchanged amlodipine (amLODIPine 5 mg Tab) 1 Tablets By Mouth Every day\.br\ Unchanged bisacodyl (Dulcolax Tab-EC) 2-3 tabs By Mouth Every day adjusts for constipation concerns \.br\ Unchanged cyclobenzaprine (cyclobenzaprine 5 mg Tab) 1 Tablets By Mouth Every day at night \.br\ Unchanged gabapentin (gabapentin 100 mg Cap) 2 Capsules By Mouth 2 times a day DDD (degenerative disc disease), cervical Restless leg Acute low back pain with sciatica\.br\ Unchanged hydrochlorothiazid e-triamterene (Maxzide-25 oral tablet) 1 Tablets By Mouth Every day Covering for \.br\ Unchanged Misc Prescription (nebulizer supplies) See instructions nebulizer supplies dx J44.9 \.br\ Unchanged naloxone (Narcan 4 mg/ 0.1 mL nasal spray) 4 Milligram Nasal Inhalation As Directed for suspected overdose symptoms \.br\ Unchanged Non-Formulary Medication (Misc Medication) 2 Tablets By Mouth 2 times a day Gagandeep gets from Dr. Khan \.br\ Unchanged ocular lubricant (Refresh) 1 Drops Both eyes 4 times a day\.br\ Unchanged olodaterol-tiotrop ium (Stiolto Respimat 2.5 mcg-2.5 mcg inhalation aerosol) 2 Puffs Inhalation Every 24 hours\.br\ Unchanged omeprazole (omeprazole 20 mg Cap-DR) 1 Capsules By Mouth Every day Chronic GERD\.br\ Unchanged triamcinolone topical (triamcinolone topical 0.1% cream) 1 Application Topical 2 times a day\.br\ Allergies\.br\ Chocolate (Anaphylaxis)\.br\ Adhesive Bandage (Itching, Rash)\.br\ aspirin (Nausea)\.br\ iodinated radiocontrast dyes (hives, Unknown)\.br\ penicillins (Itching, Rash)\.br\ sulfamethoxazole (Swelling)\.br\ Problems\.br\ Ongoing - Any problem that you are currently receiving treatment for.\.br\ Adjustment reaction\.br\ 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\.br\ Bilateral hearing loss\.br\ COPD exacerbation\.br\ DDD (degenerative disc disease), cervical\.br\ Dependent for transportation\.br \ Edema\.br\ Elevated diaphragm\.br\ Emphysema/COPD\.br \ Enrolled in chronic care management\.br\ Former smoker\.br\ Generalized osteoarthritis\.br \ GERD (gastroesophageal reflux disease)\.br\ History of stroke\.br\ HTN (hypertension)\.br \ Incontinence without sensory awareness\.br\ Insomnia\.br\ Irritable bowel syndrome with predominant constipation\.br\ Leg pain, left\.br\ Lumbar radiculopathy, right\.br\ Mixed incontinence\.br\ OAB (overactive bladder)\.br\ Obesity due to excess calories\.br\ Oral thrush\.br\ Other urethral stricture, female\.br\ Pain of right sacroiliac joint\.br\ Patient has healthcare proxy and living will\.br\ Peripheral neuropathy\.br\ RLS (restless legs syndrome)\.br\ Severe obstructive sleep apnea\.br\ Somatic dysfunction of abdominal region\.br\ Somatic dysfunction of cervical region\.br\ Somatic dysfunction of lower extremities\.br\ Somatic dysfunction of lumbar region\.br\ Somatic dysfunction of rib cage region\.br\ Somatic dysfunction of sacral spine\.br\ Somatic dysfunction of thoracic region\.br\ Thoracic aorta atherosclerosis\.b r\ Tremor\.br\ Wears hearing aid in both ears\.br\ Historical - Any problem that you are no longer receiving treatment for.\.br\ Abdominal pain, generalized\.br\ Abnormal urinalysis\.br\ Body mass index (BMI) of 31.0-31.9 in adult\.br\ Bronchitis with bronchospasm\.br\ Cervical radiculopathy\.br\ Chest pain\.br\ Constipation\.br\ Dizziness\.br\ WINTERS (dyspnea on exertion)\.br\ Exposure to second hand smoke\.br\ Frequent urination\.br\ Hernia of abdominal wall\.br\ History of UTI\.br\ Leg edema\.br\ Pain in back\.br\ 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\.br\ Rib pain on right side\.br\ Right hip pain\.br\ Screening mammogram, encounter for\.br\ Urinary urgency\.br\ \.br\ [facility] Office/Clini c Noteon 09-16-2022 Family Medicine Office/Clinic Note Chief Complaint F/U OMT. Was in ER on August 18 HPI Staff F/U OMT History of Present Illness 77 Years old Female here to f/u for chronic back pain, COPD Chief Complaint confirmed with the patient social here with her daughter, Melida Franco reports the patient is engaging with her friends more lately She meets a friend or 2 for lunch once or twice a month which up until the last few months, she never did She also reports a desire to begin working out at the [facility] since her last appt, was evaluated in the ED for chest pain it was initially determined that the patient was going to be admitted for observation there was a delay in getting the patient upstairs The patient became frustrated with the process and struggled to get information from clinical staff and eventually decided to leave MOUND Incidentally, she mentions that the nursing staff treated her well until she mentioned that she takes Percocet at night for her pain and she feels that her treatment changed after that and staff became less attentive to her she denies persistent symptoms since leaving the ED The patient reports that her low back pain has been doing much better since the injection performed by pain management Today, the majority of her pain is in her neck and trapezius area This patient also has severe COPD with a paralyzed diaphragm and does get benefit from manipulation to her ribs and abdomen-her breathing is improved every time she gets manipulation PHQ Score Initial Depression Screen Score: 0 Laboratory or Other Results This Visit (last charted value for your 09/16/2022 visit) No Laboratory or Other Results This Visit LABS Cr/eGFR: eGFR: 58 mL/min/1.73 m2 Low (08/18/22 19:52:00) Creatinine: 1 mg/dL (08/18/22 19:52:00) eGFR AA: >60 (01/13/22 10:49:00) A1c: No qualifying data available. TSH: TSH: 1.76 mcIU/mL (12/17/20 10:08:00) INR: INR: 1 (08/18/22 19:52:00) Testosterone: No qualifying data available. Free and total testosterone: No qualifying data available. Future Appointments [facility] Appt. Date: 09/21/2022 10:15 AM Scheduled Provider: Gary BANSAL, Reyes [address] [place], [address] [facility]: 10/24/2022 1:00 PM Scheduled Provider: [facility] Room 2 Phone: -- Fax: -- ROS 13 point ROS negative except for HPI Review of Systems PHQ Score Initial Depression Screen Score: 0 Physical Exam Vitals & Measurements HR: 75(Peripheral) BP: 100/60 SpO2: 90% HT: 65 in HT: 164 cm WT: 87.7 kg WT: 192.94 lb BMI: 32.61 PHYSICAL EXAM Constitutional: Vital signs reviewed; OSIRIS HERRERA is well nourished, no acute distress - this is the best I've seen this patient since she established with me Lungs: Clear to auscultation, non-labored respiration - expansion is symmetric; no sounds in the right lower lung Heart: Normal rate and rhythm, normal peripheral perfusion Lymph: Deferred Abd: Deferred : Deferred MSK: gait is more fluid posture is poor traps bilat are restricted and tender Skin: Warm, dry Neurologic: Awake, alert and oriented, speech is normal, no focal deficits, CN II-XII grossly intact Psychiatric: Cooperative, appropriate mood and affect, judgement is appropriate Procedure Osteopathic Manipulation Head: OA dysfunction - treated with BLT and FPR - with objective and subjective improvement Cervical Spine: Reduced range of motion, tenderness at the insertion of the middle scalene on rib 1 on left - treated with BLT and FPR - with objective and subjective improvement Thoracic Spine: Chronic and acute tissue texture changes of the trapezius, rhomboid on the right - treated with myofascial, BLT and FPR - with objective and subjective improvement Lumbar Spine: Lumbar paraspinal restriction bilat - treated with myofascial, BLT and FPR - with objective and subjective improvement Abdomen: Diaphragm restriction on the right - treated with inhibition to the diaphragm - with objective and subjective improvement Assessment/Plan 1. Lumbar radiculopathy, right (M54.16: Radiculopathy, lumbar region) Chronic. Stable Multifactorial etiology Medication does seem to provide ample benefit Interventional pain does seem to help as well I certify that I have reviewed the OARRS report and all PDMP information in this chart on this visit date Does get benefit from OMT Discussed the importance of optimizing mechanics Discussed the rationale of manipulation in the future I am very pleased with the patient's progress F/u prn. 2. Adjustment reaction (F43.20: Adjustment disorder, unspecified) Chronic Improving I think her improved pain control, as well as improvement in her social life, has given her more purpose and she is handling this all much better I encouraged her to continue with her progress I did give her some feed back on how I would have liked to see her handle communicat (more content not included)... [facility] Comment on above: Result Comment: Elec tronically Signed By: Dakotah Gallardo DO\Date and Time Signed: 09/16/22 18:04 EDT Consent for Treatmenton 08-12 Consent for Treatment [id number] 1#1.00CD:127 [facility] Consultation Noteon 09-06-19 Consultation Note Patient: OSIRIS HERRERA Age: 77 years Sex: Female : 1945 Associated Diagnoses: None Author: Marilu Cornell PA-C Subjective Chief complaint 09/05/2022 12:44 EDT Lower back pain/lower right leg pain . Patient is a 77-year-old female. She presents today for follow-up after undergoing sided L4-5 and L5-S1 transforaminal epidural steroid injection. This was done on 07/23/2022 and she states has given her 90% relief. Unfortunate, she still has pain in the right scott and down into her ankle and foot. She states that it is present if she gets up and tries to bear weight. She states that if she is sitting down or laying down she does not have any pain. If she is up she rates it a 9/10. She states that she just cannot bear weight. She wonders may be something else is injured. She would like to possibly get some x-rays. Previous right-sided sacroiliac joint injection was done on 06/06/2022. Patient states that the next day she felt much better. Unfortunately, in early June she fell at her son's house and then got up off the toilet and then this pain started. Part of the leg pain is better. Other parts are not. She is given pain medication by her PCP with some improvement. She just has a lot of difficulty with ambulation because the pain from the scott down. No specific knee pain. Health Status Allergies: Allergic Reactions (Selected) Severe Chocolate- Anaphylaxis. Severity Not Documented Adhesive Bandage- Rash and itching. Aspirin- Nausea. Iodinated radiocontrast dyes- Unknown and hives. Penicillins- Itching and rash. Sulfamethoxazole- Swelling., Allergies (6) Active Reaction Chocolate Anaphylaxis Adhesive Bandage Itching aspirin Nausea iodinated radiocontrast dyes hives penicillins Itching sulfamethoxazole Swelling Current medications: (Selected) Prescriptions Prescribed Maxzide-25 oral tablet: 1 tab(s), Oral, Daily, 90 tab(s), Refill(s) 3, Covering for , [facility]/pharmacy #[id number], 168, cm, 01/13/22 10:18:00 EDT, Height/Length Dosing, 89.3, kg, 01/13/22 10:18:00 EDT, Weight Dosing Narcan 4 mg/0.1 mL nasal spray: 4 mg, Nasal, As Directed, for suspected overdose symptoms, # 1 kit(s), Refills(s) 0, Pharmacy: [facility]/pharmacy #[id number], 168, cm, 07/11/22 15:36:00 EDT, Height/Length Dosing, 90, kg, 07/11/22 15:36:00 EDT, Weight Dosing Percocet 5 mg-325 mg oral tablet: 1 tab(s), Oral, BID, 60 tab(s), [facility](s) 0, [id number], cm, 08/23/22 10:38:00 EDT, Height/Length Dosing, 90.8, kg, 08/18/22 19:15:00 EDT, Weight Dosing Percocet 5 mg-325 mg oral tablet: 1 tab(s), Oral, BID, 60 tab(s), Refill(s) 0, [facility], 168, cm, 08/23/22 10:38:00 EDT, Height/Length Dosing, 90.8, kg, 08/18/22 19:15:00 EDT, Weight Dosing Stiolto Respimat 2.5 mcg-2.5 mcg inhalation aerosol: = 2 puff(s), Inhalation, q24hr, # 2 EA, Refills(s) 0, samples given to patient (Rx) albuterol HFA 90 mcg/inh MDI: 2 puff(s), Inhalation, q4hr for wheezing, 1 EA, Refill(s) 11, [id number] 170, cm, 07/08/20 10:28:00 EDT, Height/Length Dosing, 91.8, kg, 07/08/20 10:28:00 EDT, Weight Dosing albuterol-ipratropiu m Inh Lizzeth 3 mL UD: 3 mL, NEB, QID Wheezing, 120 EA, Refill(s) 11, [facility]/pharm[facility] #[id number], 165, cm, 02/26/21 14:54:00 EST, Height/Length Dosing, 88.6, kg, 02/26/21 14:54:00 EST, Weight Dosing amLODIPine 5 mg Tab: 5 mg = 1 tab(s), Oral, Daily, # 90 tab(s), Refills(s) 3, [id number], 168, cm, 02/28/22 16:04:00 EST, Height/Length Dosing, 89.7, kg, 02/28/22 16:04:00 EST, Weight Dosing gabapentin 100 mg Cap: 200 mg = 2 cap(s), Oral, BID, # 120 cap(s), Refills(s) 11, [id number], 168, cm, 08/12/22 9:51:00 EDT, Height/Length Dosing, 86.9, kg, 08/12/22 9:51:00 EDT, Weight Dosing nebulizer supplies: nebulizer supplies, See Instructions, 1 EA, 11, nebulizer supplies dx J44.9, [facility], Supply, 158, cm, 12/27/19 11:56:00 EDT, Height/Length Dosing, 88.6, kg, 12/27/19 11:56:00 EDT, Weight Dosing omeprazole 20 mg Cap-DR: 20 mg = 1 cap(s), Oral, Daily, # 90 cap(s), Refills(s) 4, [id number], 165, cm, 05/30/22 11:07:00 EDT, Height/Length Dosing, 87.6, kg, 05/30/22 11:07:00 EDT, Weight Dosing triamcinolone topical 0.1% cream: 1 elva, Topical, BID, 30 gm, Refill(s) 5, [id number], 165.7, cm, 12/09/20 14:23:00 EDT, Height/Length Dosing, 72.7, kg, 12/09/20 14:23:00 EDT, Weight Dosing Documented Medications Documented Dulcolax Tab-EC: 2-3 tabs, Oral, Daily, adjusts for constipation concerns, Refills(s) 0 Misc Medication: 2 tab(s), Oral, BID, Hyroeye gets from Dr. 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 [facility] Comment on above: Result Comment: Elec tronically Signed By: Marilu Cornell PA-C\.br\Date and Time Signed: 09/05/22 13:13 EDT\.br\Electronically Co-Signed By: Jimenez BANSAL, Crow Perez\.br\Date and Time Co-Signed: 09/12/22 15:19 EDT Office/Clinic Note-Physician on 09-05-2022 Office/Clinic Note-Physician [id number] 65#1.00CD:127 [facility] Orders Officeon 09-05-2022 Orders Office [id number] 84#1.00CD:127 [facility] Patient Correspondenceon Patient Correspondence [id number] 75#1.00CD:127 [facility] Patient History Officeon Patient History Office [id number] 87#1.00CD:127 [facility] Physician Orderon 09-05-2022 Physician Order [id number] 34#1.00CD:127 [facility] Physician Order [id number] #1.00CD:127 [facility] Pharmacy Clinical Interventi ons - Texton 08-31-2022 Pharmacy Clinical Interventions - Text Objective Intake & Output No qualifying data available. Lab Results No qualifying data available. Assessment/Plan Reviewed medication history and what each medication is used for. Pt asked about leg cramps possibly being caused by maxzide, probably not the cause as labs were fine 2 weeks ago at last er visit, cramps have been happening for years and daughter and mother also suffer with them. Pt reports adequate water intake. Recent change in pain meds, stopped requip and added gabapentin - pt reports no adverse effects and that pain is same or slightly improved. recent pain management injection has helped hip pain. 17 minute spent talking to patient Problem List/Past Medical History Ongoing Acute low back pain with sciatica Adjustment reaction 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 Bilateral hearing loss COPD exacerbation DDD (degenerative disc disease), cervical Dependent for transportation Edema Elevated diaphragm Emphysema/COPD Enrolled in chronic care management Former smoker Generalized osteoarthritis GERD (gastroesophageal reflux disease) History of stroke HTN (hypertension) Incontinence without sensory awareness Insomnia Irritable bowel syndrome with predominant constipation Leg pain, left Lumbar radiculopathy, right Mixed incontinence OAB (overactive bladder) Obesity due to excess calories Oral thrush Other urethral stricture, female Pain in thoracic spine Pain of right sacroiliac joint Patient has healthcare proxy and living will Peripheral neuropathy RLS (restless legs syndrome) Severe obstructive sleep apnea Somatic dysfunction of abdominal region Somatic dysfunction of cervical region Somatic dysfunction of lower extremities Somatic dysfunction of lumbar region Somatic dysfunction of rib cage region Somatic dysfunction of sacral spine Somatic dysfunction of thoracic region Thoracic aorta atherosclerosis Tremor Wears hearing aid in both ears Historical Abdominal pain, generalized Abnormal urinalysis Body mass index (BMI) of 31.0-31.9 in adult Bronchitis with bronchospasm Cervical radiculopathy Chest pain Constipation Dizziness WINTERS (dyspnea on exertion) Exposure to second hand smoke Frequent urination Hernia of abdominal wall History of UTI Leg edema Pain in back 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 Rib pain on right side Right hip pain Screening mammogram, encounter for Urinary urgency Medications Inpatient No active inpatient medications Home albuterol HFA 90 mcg/inh MDI, 2 puff(s), Inhalation, q4hr, PRN, 11 refills albuterol-ipratropiu m Inh Lizzeth 3 mL UD, 3 mL, NEB, QID, PRN, 11 refills amLODIPine 5 mg Tab, 5 mg= 1 tab(s), Oral, Daily, 3 refills cyclobenzaprine 5 mg Tab, 5 mg= 1 tab(s), Oral, Daily Dulcolax Tab-EC, 2-3 tabs, Oral, Daily gabapentin 100 mg Cap, 200 mg= 2 cap(s), Oral, BID, 11 refills Maxzide-25 oral tablet, 1 tab(s), Oral, Daily, 3 refills Misc Medication, 2 tab(s), Oral, BID Narcan 4 mg/0.1 mL nasal spray, 4 mg, Nasal, As Directed, Unable to obtain: Too expensive nebulizer supplies, See Instructions, 11 refills omeprazole 20 mg Cap-DR, 20 mg= 1 cap(s), Oral, Daily, 4 refills Percocet 5 mg-325 mg oral tablet, 1 tab(s), Oral, BID Refresh, 1 drop(s), Eye-Both, QID, Not taking Stiolto Respimat 2.5 mcg-2.5 mcg inhalation aerosol, 2 puff(s), Inhalation, q24hr, 11 refills triamcinolone topical 0.1% cream, 1 elva, Topical, BID, 5 refills Tylenol Extra Strength 500 mg oral tablet, 1000 mg= 2 tab(s), Oral, q6hr, PRN [facility] Consultation Noteon 08-25-19 Consultation Note [id number]# 1.00CD:127 [facility] Consent for Procedure/Surger yon 08-23-2022 Consent for Procedure/Surgery [id number]#1.00CD:127 [facility] Consent for Treatmenton 08-11 Consent for Treatment [id number]#1.00CD:127 [facility] Discharge Instructionson Discharge Instructions [id number] 1#1.00CD:127 [facility] IntraOperative Documentson 0 08-23-2022 IntraOperative Documents [id number] 7#1.00CD:127 [facility] Main OR Intraoperative Recor don 08-23-2022 Main OR Intraoperative Record IntraOp Document Type FT Summary Primary Physician: Crow Gaona MD Finalized Date/Time: 08/23/22 11:20:30 Pt. Name: JAVIER OSIRISMARY Todd D.O.B./Sex: 1945 Female Med Rec #: [id number] Physician: Crow Gaona MD Financial #: [id number] Pt. Type: P Room/Bed: / Admit/Disch: 08/23/22 10:28:39 - Institution: Case Times FTPM Entry 1 Patient Times In Room 08/23/22 11:13:00 Out Room 08/23/22 11:20:00 Procedure Times Start 08/23/22 11:16:00 Stop 08/23/22 11:19:00 Anesthesia Times Last Modified By: Leydi Ferrell RN 08/23/22 11:19:35 Case Attendance FTPM Entry 1 Entry 2 Entry 3 Case Attendee Jimenez BANSAL, Crow Ferrell RN, Leydi Polo RN, Kathy Ojeda Role Performed Surgeon - Primary Artificial Fly Tier - Primary Scrub - Primary Time In 08/23/22 11:13:00 08/23/22 11:13:00 08/23/22 11:13:00 Time Out 08/23/22 11:20:00 08/23/22 11:20:00 08/23/22 11:20:00 Procedure TRANSFORAMINAL EPIDURAL TRANSFORAMINAL EPIDURAL TRANSFORAMINAL EPIDURAL STEROID INJECTIO(Right) STEROID INJECTIO(Right) STEROID INJECTIO(Right) Comments Last Modified By: Ghassan RN, Leydi Ferrell RN, Leydi Ferrell RN, Leydi Abreu 08/23/22 11:19:36 08/23/22 11:19:36 08/23/22 11:19:36 Entry 4 Entry 5 Case Attendee Blake RT(R), Diana Rodriguez Role Performed Nick Setter Nick Setter Time In 08/23/22 11:13:00 08/23/22 11:13:00 Time Out 08/23/22 11:20:00 08/23/22 11:20:00 Procedure TRANSFORAMINAL EPIDURAL TRANSFORAMINAL EPIDURAL STEROID INJECTIO(Right) STEROID INJECTIO(Right) Comments Last Modified By: Ghassan RN, Leydi Ferrell RN, Leydi Abreu 08/23/22 11:19:36 08/23/22 11:19:36 Perioperative Protocols FTPM Pre-Care Text: Implements protective measures prior to operative or invasive procedure, confirms identity before the operative or invasive procedure, verifies operative procedure, surgical site, and laterality Entry 1 Procedure(s) TRANSFORAMINAL EPIDURAL Patient Identity Birthday, ID Band STEROID INJECTIO(Right) Verified (select at Check, Patient least 2): Participation Consents / H and P HandP, Surgery/Procedure Operative Site Present Verified Consent Marking Verified Surgical Site Yes Laterality Verified Yes Verified Procedure Verified Yes Correct Patient Yes Position Verified Availability Equipment, Medication, Prep Dry Yes Verified (If X-ray Applicable) PreOp Antibiotic No Time Out Leydi Ferrell RN, Melani VILLALPANDO, Kathy Ojeda, Jimenez BANSAL, Crow Perez, Blake RT(R), Josué Amor Laura M Time Out Complete 08/23/22 11:14:00 Outcomes Met? Yes Last Modified By: Leydi Ferrell RN 08/23/22 11:14:11 Post-Care Text: The patient is free from signs and symptoms of injury caused by extraneous objects Allergy Information FTPM Pre-Care Text: Verifies allergies Entry 1 Allergies Reviewed? Yes Allergies Reviewed Self/Patient With Outcomes Met? Yes Last Modified By: Leydi Ferrell RN 08/23/22 10:33:59 Post-Care Text: The patient received appropriate medication(s) safely administered during the perioperative period Surgical Procedures FTPM Entry 1 Procedure Description Procedure TRANSFORAMINAL EPIDURAL Modifiers Right STEROID INJECTION Surgeon Description L4/5 + L5/S1 TFESI (CONTRAST ALLERGY) Primary Procedure Yes Primary Surgeon Jimenez BANSAL, Crow Perez Start 08/23/22 11:16:00 Stop 08/23/22 11:19:00 Anesthesia Type None Surgical Service Pain Management Wound Class 1 - Clean Last Modified By: Leydi Ferrell RN 08/23/22 11:19:38 General Case Data FTPM Pre-Care Text: Classifies surgical wound, implements aseptic technique, initiates traffic control Entry 1 Case Information OR Pain Proc Room Case Level Level 2 Wound Class 1 - Clean Specialty Pain Management Preop Diagnosis M54.16 Postop Same As Preop Yes Postop Diagnosis M54.16 Outcomes Met? Yes Last Modified By: Leydi Ferrell RN 08/23/22 11:14:21 Post-Care Text: The patient is free from signs and symptoms of infection Skin Assessment (Pre Procedure) FTPM Pre-Care Text: Implements protective measures to prevent skin/ tissue injury due to thermal or mechanical sources Evaluates for signs and symptoms of physical injury to skin and tissue Entry 1 Skin Integrity Intact, [place], Warm, and Skin Abnormality No Dry Outcomes Met? Yes Last Modified By: Leydi Ferrell RN 08/23/22 10:34:10 Post-Care Text: The patient is free from signs and symptoms of injury caused by extraneous objects Patient Positioning FTPM Pre-Care Text: Identifies physical alterations that require additional precautions for procedure-specific positioning, verifies presence of prosthetics or corrective devices, positions the patient, evaluates the patient for signs and symptoms of injury as a result of positioning Entry 1 Procedure TRANSFORAMINAL EPIDURAL Body Position Prone STEROID INJECTIO(Right) (more content not included)... [facility] Main OR Preoperative Recordo n 08-23-2022 Main OR Preoperative Record Holding Area Document Type FTPM Summary Primary Physician: Crow Gaona MD Finalized Date/Time: 08/23/22 11:40:36 Pt. Name: OSIRIS HERRERA Peyton /Sex: 1945 Female Med Rec #: [id number] Physician: Crow Gaona MD Financial #: [id number] Pt. Type: P Room/Bed: / Admit/Disch: 08/23/22 10:28:39 - Institution: Case Times Holding FTPM Pre-Care Text: Verifies consent for planned procedure, identifies individual values and wishes concerning care, includes family members in perioperative teaching Secures patient's records' belongings, and valuables, maintains patient's dignity and privacy, and maintains patient confidentiality Entry 1 In Holding 08/23/22 10:43:00 Outcomes Met? Yes Last Modified By: Teena Robles RN 08/23/22 10:43:54 Post-Care Text: The patient participates in decisions affecting his or her perioperative plan of care The patient's right to privacy is maintained Surgery Checklist FTPM Entry 1 Patient Birthday, ID Band Procedure History and Physical, Identification: Check, Patient Verification: Surgical Consent, With Participation Patient NPO after Midnight: n/a Date/Time: 08/23/22 10:00:00 Results Reviewed Root beer Personal Items: Cataract Lens Implant, Comments: Glasses, Jewelry Personal Items 2 rings. Patient has Complaints of Pain: Yes Comment: hearing aids but decides not keep them and hands them to daughter for safe keeping. Pain Comment: 8/10 lower back/butt Operative Site Yes and right leg Marking: Marked By: operative site marked Availability Equipment, X-Ray by Dr. ganoa Verified: Does Patient Smoke No Patient states Yes Comment - Adult Melida-daughter postop adult Supervision supervision available Case Cancelled in No Holding Area see comments below for reason Last Modified By: Teena Robles RN 08/23/22 11:40:34 Finalized By: Teena Robles RN Document Signatures Signed By: Teena Robles RN 08/23/22 10:45 Teena Robles RN 08/23/22 11:40 [facility] Operative Reporton 3 Operative Report Patient: OSIRIS HERRERA Age: 77 years Sex: Female : 1945 Associated Diagnoses: None Author: Jimenez BANSAL, Crow Perez Procedure Procedure: Transforaminal Epidural Steroid Injections with Fluoroscopic Guidance at Right L4/5 and L5/S1 Diagnosis: Lumbar Radiculitis Anesthesia: Local The patient was identified in the pre-op area. The procedure, including risks benefits and alternatives was discussed with the patient. The patient agreed to proceed. Informed consent was obtained and the site(s) marked. The patient was brought to the procedure room and placed in the prone position with padding under the abdomen to reduce lumbar lordosis. Time out was performed. The back was prepped and draped in sterile fashion with Chloraprep. Skin and subcutaneous tissues were anesthetized with 3 mL of Lidocaine 2% through a 25G needle. 22G spinal needles were advanced under fluoroscopic guidance in AP and oblique views through the right L4/5 and L5/S1 foramina into the epidural space. Mutlihance contrast 0.5mL was injected under live fluoroscopy at each level which demonstrated appropriate epidural spread without vascular uptake. After confirmation of negative aspiration, a total of 1mL of 2% PF lidocaine, 1mL of PF normal saline, and 10mg of PF dexamethasone (10mg/1mL) were injected in equally divided doses through the needles. The 2 needles were removed and a bandage applied. The patient was brought to the recovery area in stable condition and then monitored for an appropriate period of time. The patient was discharged home in good condition with post-procedure instructions. No apparent complications. Epidural injection procedure Physical Exam: vital signs Vital Signs 08/23/2022 10:40 EDT Heart Rate Monitored 79 bpm SpO2 93 % 08/23/2022 10:38 EDT Heart Rate Monitored 82 bpm SpO2 85 % LOW 08/23/2022 10:38 EDT Systolic Blood Pressure 119 mmHg Diastolic Blood Pressure 61 mmHg Mean Arterial Pressure, Monitered 81 mmHg 08/23/2022 10:37 EDT Temperature Oral 36.6 DegC 08/23/2022 10:36 EDT Respiratory Rate 12 br/min LOW . [facility] Comment on above: Result Comment: Elec tronically Signed By: Jimenez BANSAL, Crow Perez\.br\Date and Time Signed: 08/23/22 11:19 EDT Population Health 08-24-19 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 Reason: Disease management Case Type: Chronic Care Management Risk Score: -- Case Status: Active (January 03, 2019) Date Assigned: December 19, 2018 Assigned By: Brice Stephenson RN Date Enrolled: January 03, 2019 Assigned Primary Personnel: Aminata Mendieta RN Assigned Secondary Personnel: -- Case Physician: Dakotah Gallardo DO Problems Ongoing Acute low back pain with sciatica Adjustment reaction 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 Bilateral hearing loss COPD exacerbation DDD (degenerative disc disease), cervical Dependent for transportation Edema Elevated diaphragm Emphysema/COPD Enrolled in chronic care management Former smoker Generalized osteoarthritis GERD (gastroesophageal reflux disease) History of stroke HTN (hypertension) Incontinence without sensory awareness Insomnia Irritable bowel syndrome with predominant constipation Leg pain, left Lumbar radiculopathy, right Mixed incontinence OAB (overactive bladder) Obesity due to excess calories Oral thrush Other urethral stricture, female Pain in thoracic spine Pain of right sacroiliac joint Patient has healthcare proxy and living will Peripheral neuropathy RLS (restless legs syndrome) Severe obstructive sleep apnea Somatic dysfunction of abdominal region Somatic dysfunction of cervical region Somatic dysfunction of lower extremities Somatic dysfunction of lumbar region Somatic dysfunction of rib cage region Somatic dysfunction of sacral spine Somatic dysfunction of thoracic region Thoracic aorta atherosclerosis Tremor Wears hearing aid in both ears Historical Abdominal pain, generalized Abnormal urinalysis Body mass index (BMI) of 31.0-31.9 in adult Bronchitis with bronchospasm Cervical radiculopathy Chest pain Constipation Dizziness WINTERS (dyspnea on exertion) Exposure to second hand smoke Frequent urination Hernia of abdominal wall History of UTI Leg edema Pain in back 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 Rib pain on right side Right hip pain Screening mammogram, encounter for Urinary urgency Procedure/Surgical History Injection of sacroiliac joint using fluoroscopic guidance (06/06/2022), Cystoscopy (06/07/2021), Hernia repair (09/07/2020), Injection of therapeutic substance into bladder wall (08/03/2020), Injection of sacroiliac joint using fluoroscopic guidance (06/08/2020), Colonoscopy (11/22/2019), Injection of therapeutic substance into bladder wall (09/09/2019), Cataract extraction (04/17/2019), Cystoscopy (12/03/2018), Injection of therapeutic substance into bladder wall (12/03/2018), left total knee arthroplasty (08/29/2016), Appendectomy, Back Surgery, Bowel obstruction, Breast reduction, CE - Cataract extraction, Corns and callus, mole removal, Tubal ligation. Home Medications albuterol HFA 90 mcg/inh MDI, 2 puff(s), Inhalation, q4hr, PRN, 11 refills albuterol-ipratropiu m Inh Lizzeth 3 mL UD, 3 mL, NEB, QID, PRN, 11 refills amLODIPine 5 mg Tab, 5 mg= 1 tab(s), Oral, Daily, 3 refills cyclobenzaprine 5 mg Tab, 5 mg= 1 tab(s), Oral, Bedtime, 11 refills Dulcolax Tab-EC, 2-3 tabs, Oral, Daily gabapentin 100 mg Cap, 200 mg= 2 cap(s), Oral, BID, 11 refills Icy Hot Max Lidoacaine Maxzide-25 oral tablet, 1 tab(s), Oral, Daily, 3 refills Misc Medication, 2 tab(s), Oral, BID Narcan 4 mg/0.1 mL nasal spray, 4 mg, Nasal, As Directed, Unable to obtain: Too expensive nebulizer supplies, See Instructions, 11 refills omeprazole 20 mg Cap-DR, 20 mg= 1 cap(s), Oral, Daily, 4 refills Percocet 5 mg-325 mg oral tablet, 1 tab(s), Oral, BID Refresh, 1 drop(s), Eye-Both, QID, Not taking Stiolto Respimat 2.5 mcg-2.5 mcg inhalation aerosol, 2 puff(s), Inhalation, q24hr, 11 refills triamcinolone topical 0.1% cream, 1 elva, Topical, BID, 5 refills, Not taking Tylenol Extra Strength 500 mg oral tablet, 1000 mg= 2 tab(s), Oral, q6hr, PRN Allergies Chocolate (Anaphylaxis) Adhesive Bandage (Itching, Rash) aspirin (Nausea) iodinated radiocontrast dyes (hives, Unknown) penicillins (Itching, Rash) sulfamethoxazole (Swelling) Social History Alcohol - No Risk, 08/31/2020 Current, Wine, 1-2 times per month, Previous treatment: None. Alcohol use interferes with work or home: No. Drinks more than intended: No. Others hurt by drinking: No. Ready to change: No. Household alcohol concerns: No., 05/31/2021 Substance Abuse - Denies Substance Abuse, 10/23/2019 Previous treatment: None. Household substance abuse concerns: No., 05/31/2021 Tobacco - Denies Tobacco Use, 11/28/2018 Former smoker, quit more than 30 days ago Tobacco Use:. Never Smokeless Tobacco Use:. Cigarettes, Total pack years: 50. Started age 18.0 Years. Stopped age 50 Years. Previous treatment: None. Household tobacco concerns: No., 08/12/2022 Family History Alcoholism: Father. Metastatic cancer: Mother. Dexter (more content not included)... [facility] Consent To Leave AMAon 08-19 Consent To Leave AMA [id number] 2#1.00CD:127 [facility] ED Clinical Summaryon 2022 ED Clinical Summary [place] [id number] ED Clinical Summary Person Information Name: OSIRIS HERRERA [facility] Age: 77 Years : 1945 Sex: Female Language: Panamanian PCP: Dakotah Gallardo DO Marital Status: Visit Id: Visit Reason: Chest pain; CHEST PAINS Speciality: Acuity: 2 Enc Type: Observation Med Service: Emergency Arrival: 08/18/2022 19:08:06 Discharge: 08/18/2022 23:49:45 LOS: 000 04:41 Checkin: 08/18/2022 19:08:06 Checkout: 08/18/2022 23:49:45 Dispo Type: Left Against Medical Advice EVENTS: Event Name Event Status Request Date/Time Start Date/Time Complete Date/Time Arrive Complete 08/18/2022 19:08:06 08/18/2022 19:08:06 08/18/2022 19:08:06 Document Home Meds Request 08/18/2022 19:08:06 Triage Complete 08/18/2022 19:08:06 08/18/2022 19:15:13 08/18/2022 19:15:13 Bed Assign Complete 08/18/2022 19:09:27 08/18/2022 19:09:27 08/18/2022 19:09:27 Dr Exam Complete 08/18/2022 19:09:27 08/18/2022 19:09:52 08/18/2022 19:09:52 RN Exam Complete 08/18/2022 19:09:27 08/18/2022 19:36:09 08/18/2022 19:36:09 EKG Complete 08/18/2022 19:09:43 08/18/2022 19:13:06 Registration Complete 08/18/2022 19:09:52 08/18/2022 20:17:08 08/18/2022 20:17:08 Pending Labs Request 08/18/2022 19:16:05 Lab Complete 08/18/2022 19:16:05 08/18/2022 20:15:22 Patient Care Request 08/18/2022 19:16:05 RT Request 08/18/2022 19:16:05 X-Ray Complete 08/18/2022 19:16:05 08/18/2022 19:35:33 08/18/2022 19:41:33 Fall Risk Request 08/18/2022 19:36:09 Wet Read Request 08/18/2022 19:41:33 Pending Labs Complete 08/18/2022 19:52:56 08/18/2022 19:52:56 08/18/2022 20:15:22 Lab Complete 08/18/2022 19:52:56 08/18/2022 19:52:56 08/18/2022 20:15:22 Pending Labs Complete 08/18/2022 20:12:19 08/18/2022 20:12:19 08/18/2022 20:12:30 Lab Complete 08/18/2022 20:12:19 08/18/2022 20:12:19 08/18/2022 20:12:30 Reg Complete Request 08/18/2022 20:17:08 Reg Bed Request Complete 08/18/2022 20:17:08 08/18/2022 20:17:08 08/18/2022 20:17:08 Meds Admin Complete 08/18/2022 20:29:11 08/18/2022 20:43:57 Consult Request 08/18/2022 21:06:01 Hospitalist Consult Request 08/18/2022 21:06:01 Patient Care Request 08/18/2022 21:22:25 Patient Care Request 08/18/2022 21:22:25 Patient Care Request 08/18/2022 21:22:25 Patient Care Request 08/18/2022 21:22:25 Discharge Complete 08/18/2022 23:50:12 08/18/2022 23:50:12 08/18/2022 23:50:12 Transfer Complete 08/18/2022 23:50:12 08/18/2022 23:50:12 08/18/2022 23:50:12 ADDRESS: [address] [place] [id number] [facility] DOC NOTES: Addendum by Ashley Jordan DO on August 18, 2022 23:46:00 EDT MEDICAL INFORMATION: Prescriptions Given: Medications to Continue with No Changes Other Medications acetaminophen (Tylenol Extra Strength 500 mg oral tablet) 2 Tablets By Mouth every 6 hours as needed as needed for pain. acetaminophen-oxycod one (Percocet 5 mg-325 mg oral tablet) 1 Tablets By Mouth 2 times a day. Refills: 0. albuterol (albuterol HFA 90 mcg/inh MDI) 2 Puffs Inhalation every 4 hours as needed for wheezing. Refills: 11. albuterol-ipratropiu m (albuterol-ipratropi um Inh Lizzeth 3 mL UD) 3 Milliliter Nebulized inhalation (aerosol) 4 times a day as needed Wheezing. Refills: 11. amlodipine (amLODIPine 5 mg Tab) 1 Tablets By Mouth every day. Refills: 3. bisacodyl (Dulcolax Tab-EC) 2-3 tabs By Mouth every day. adjusts for constipation concerns. cyclobenzaprine (cyclobenzaprine 5 mg Tab) 1 Tablets By Mouth at bedtime. Refills: 11. gabapentin (gabapentin 100 mg Cap) 2 Capsules By Mouth 2 times a day. Refills: 11. hydrochlorothiazide- triamterene (Maxzide-25 oral tablet) 1 Tablets By Mouth every day. Covering for . Refills: 3. lidocaine-menthol topical (Icy Hot Max Lidoacaine) Misc Prescription (nebulizer supplies) nebulizer supplies dx J44.9. Refills: 11. naloxone (Narcan 4 mg/0.1 mL nasal spray) 4 Milligram Nasal Inhalation As Directed. for suspected overdose symptoms. Refills: 0. Non-Formulary Medication (Misc Medication) 2 Tablets By Mouth 2 times a day. Gagandeep gets from Dr. Khan. ocular lubricant (Refresh) 1 Drops Both eyes 4 times a day. olodaterol-tiotropiu m (Stiolto Respimat 2.5 mcg-2.5 mcg inhalation aerosol) 2 Puffs Inhalation every 24 hours. Refills: 11. omeprazole (omeprazole 20 mg Cortez-) 1 Capsules By Mouth every day. Refills: 4. triamcinolone topical (triamcinolone topical 0.1% cream) 1 Application Topical 2 times a day. Refills: 5. PATIENT EDUCATION INFORMATION: Instructions: Follow up: DIAGNOSIS: Acute chest pain Normal [facility] ED Note-Nursingon 08-19-2022 ED Note-Nursing Pt O2 sat down to 90%. Pt state she is wearing O2 @ bed time. Hooked to O2 @ 1.5lpm Normal [facility] ED Note-Physicianon 08-20-19 ED Note-Physician Basic Information Time Seen: Ashley Jordan DO 08/18/2022 19:09 Chief Complaint Pt reports chest pain and back pain that started this afternoon. jaw pain that feels like she has a toothache. Chest pain is intermittent. Pt was sitting down when the pain started. Hx of COPD. History of Present Illness Patient is a 77-year-old female with past medical history of hypertension, hyperlipidemia, CVA, COPD not on home oxygen presenting to the ED for evaluation of chest pain with radiation to her back and jaw. Patient states the pain started around 1 PM this afternoon has been intermittent lasting for several minutes at a time and then resolving. Patient states she is still having discomfort in her teeth. Patient states she had a stress test approximately 2 to 3 years ago however is unsure of the results. She denies recent illness, fevers, chills. Does have some dizziness. Denies nausea vomiting diarrhea shortness of breath, any other symptoms. Review of Systems A 10 point review of systems is negative except as noted above. Medical and Surgical History: Reviewed and noted Social history: Lives at home Tobacco: Denies Physical Exam Vitals & Measurements T: 36.6 ?C(Oral) HR: 97(Peripheral) RR: 16 BP: 147/82 SpO2: 93% HT: 168 cm WT: 90.8 kg BMI: 32.17 General: Well developed, non toxic appearing, no acute distress HEENT: Head atraumatic, Mucosa moist, hearing grossly normal Neck: No JVD, tracheal deviation Cardiac: Regular rate, rhythm, no murmurs, or gallops, 2+ radial pulses Respiratory: Lungs clear to auscultation B/L, normal respiratory effort Abdomen: Soft non tender, no rebound or guarding, no peritoneal signs Extremities: No edema noted in the LE B/L, no tenderness to palpation Neurologic: Alert and oriented, speech clear Skin: No rashes or lesions Psych: Appropriate mood and behavior Medical Decision Making MEDICAL DECISION MAKING Number and Complexity of Problems Differential Diagnosis: [] [facility] Data External documents reviewed: [] My EKG interpretation: [] My CT interpretation: [] My X-ray interpretation: [] My Ultrasound interpretation: [] Decision rules/scores evaluated: Heart Score for Major Cardiac Event History: Example factors for history - pattern of chest pain, onset, duration, relation with exercise, stress or cold, localization, concominant symptoms. reaction to sublingual nitrates, [] Highly suspicious +2 [X] Moderately suspicious +1 [] Slightly suspicious 0 EKG: [] Significant ST-Depression +2 [] Non specific repolarization disturbance +1 [X] Normal 0 Age: [X] >= 65 +2 [] 45-65 + 1 [] <45 0 Risk Factors: (HLD, HTN, DM, Cigarette Smoking, Pos Family Hx, Obesity) [X] >3 risk factors or hx of atheroslerotic disease + 2 [] 1-2 risk factors + 1 [] No risk factors known 0 Troponin: [] >= 3X normal + 2 [] 1-3X normal + 1 [X] <= Normal 0 [] 0-3 Points 0.9 - 1.7% risk of major adverse cardiac event in 6 weeks [X] 4-6 Points 12-16.6% risk of major adverse cardiac event in 6 weeks [] 7-10 Points 50-65% risk of major adverse cardiac event in 6 weeks [] 0-3 Points with 2 sets of negative cardiac markers <1% risk of major adverse cardiac event in 30 days. Discussed with: [] Treatment and Disposition ED Course: Patient is a 77-year-old female presenting to the ED for evaluation chest pain, dizziness. Patient's nontoxic-appearing on arrival, no acute distress. Cardiac work-up is obtained. EKG with motion artifact but otherwise unremarkable. Patient is not given aspirin as she has an allergy to this. Not having any current pain on my examination. Patient's laboratory evaluation is unremarkable, chest x-ray with no focal infiltrates. Patient remains pain-free in the ED. Due to her elevated heart score I did discuss admission to the hospital she is agreeable. I discussed the case with the hospitalist who accepts the patient for admission. Shared decision making: [] Code status: [] Assessment/Plan Acute chest pain (R07.9: Chest pain, unspecified) Orders: acetaminophen-oxycod one, 1 tab(s), Tab, Oral, Once, Stop date 08/18/22 20:28:00 EDT, STAT, Start date 08/18/22 20:28:00 EDT cyclobenzaprine, 5 mg = 0.5 tab(s), Tab, Oral, Once, Stop date 08/18/22 20:28:00 EDT, STAT, Start date 08/18/22 20:28:00 EDT, 08/18/22 20:28:00 EDT gabapentin, 200 mg = 2 cap(s), Cap, Oral, Once, Stop date 08/18/22 20:28:00 EDT, STAT, Start date 08/18/22 20:28:00 EDT, 08/18/22 20:28:00 EDT Automated Diff Basic Metabolic Panel CBC w/ Auto Diff ED Cardiac Monitoring ED Physician consult Hospitalist for continued care eGFR Hepatic Function Panel Lipase Level Magnesium Level Oxygen Saturation Oxygen Therapy PT & PTT Saline Lock Insert Troponin 0 Hr. Troponin (more content not included)... Normal [facility] Comment on above: Result Comment: Elec tronically Signed By: Ashley Jordan DO\.peng\Date and Time Signed: 08/18/22 23:46 EDT ED Patient Education Noteon 08-19-2022 ED Patient Education Note Normal [facility] ED Patient Summaryon 023 ED Patient Summary [place] [id number] Patient Discharge Instructions Person Information Name: OSIRIS HERRERA Age: 77 Years [facility]: [id number] Arrival Date: 08/18/2022 19:08:06 Discharge Diagnosis: Acute chest pain Primary Care Physician: Dakotah Gallardo DO Provider Information Primary Provider: Ashley Jordan DO Advanced Exhibit Artist:None The exam and treatment you received in the Emergency Department were for an urgent problem and are not intended as complete care. It is important that you follow up with a doctor, nurse practitioner, or physician?s academic support assistant for ongoing care. If your symptoms become worse or you do not improve as expected and you are unable to reach your usual health care provider, you should return to the Emergency Department. We are available 24 hours a day. OSIRIS HERRERA has been given the following list of patient education materials, prescriptions and follow-up instructions: Follow-up Instructions: In the event that this physician does not participate in your insurance network, please consult with your insurance company to find a nearby participating provider. Patient Education Materials: A MESSAGE TO ALL PATIENTS REGARDING OPIOIDS PRESCRIPTION OPIOIDS: WHAT YOU NEED TO KNOW Prescription opioids can be used to help relieve qzvlgtru-qs-easlmf pain and are often prescribed following a surgery or injury, or for certain health conditions. These medications can be an important part of the treatment but also come with serious risks. It is important to work with your healthcare provider to make sure you are getting the safest, most effective care. WHAT ARE THE RISKS AND SIDE EFFECTS OF OPIOID USE? Prescription opioids carry serious risks of addiction and overdose, especially with prolonged use. An opioid overdose, often marked by slowed breathing, can cause sudden . The use of prescription opioids can have a number of side effects as well, even when taken as directed: ? Tolerance?meaning you might need to take more of the medication for the same pain relief ? Physical dependence?meaning you have symptoms of withdrawal when a medication is stopped ? Increased sensitivity to pain ? Constipation ? Nausea, vomiting, and dry mouth ? Sleepiness and dizziness ? Confusion ? Depression ? Low levels of testosterone that can result in lower sex drive, energy, and strength ? Itching and sweating RISKS ARE GREATER WITH: ? History of drug misuse, substance use disorder, or overdose ? Mental health conditions (such as depression or anxiety) ? Sleep apnea ? Older age (65 years and older) ? Avoid alcohol while taking prescription opioids. Also, unless specifically advised by your health care provider, medications to avoid include: ? Benzodiazepines (such as Xanax or Valium) ? Muscle relaxants (such as Soma or Flexeril) ? Hypnotics (such as Ambien or Lunesta) ? Other prescription opioids KNOW YOUR OPTIONS Talk to your health care provider about ways to manage your pain that don?t involve prescription opioids. Some of these options may actually work better and have fewer risks and side effects. Options may include: ? Pain relievers such as acetaminophen, ibuprofen, and naproxen ? Some medication that are also used for depression or seizures ? Physical therapy and exercise ? Cognitive behavioral therapy, a psychological, goal-directed approach, in which patients learn how to modify physical, behavioral, and emotional triggers of pain and stress. IF YOU ARE PRESCRIBED OPIOIDS FOR PAIN: ? Never take opioids in greater amounts or more often than prescribed. ? Follow up with your primary health care provider. o Work together to create a plan on how to manage your pain. o Talk about ways to help manage your pain that don?t involve prescription opioids. o Talk about any and all concerns and side effects. ? Help prevent misuse and abuse o Never sell or share prescription opioids. o Never use another person?s prescription opioids. ? Store prescription opioids in a secure place and out of reach of others (this may include visitors, children, friends, and family). ? Safely dispose of unused prescription opioids: Find your community drug take-back program or your pharmacy mail-back program, or flush them down the toilet, following guidance from the Food and Drug Administration (www.fda.gov/Drugs/R esourcesForYou). ? Visit www.cdc.gov/drugover dose to learn about the risks of opioids abuse and overdose. ? If you believe you may be struggling with addiction, tell your health career placement specialist and ask for guidance or call SAMHSA?S National Helpline at 0-593-401-HELP. v Source: [place] Department of Health and Human Services/Center for Disease Control & Prevention [facility] Medications Given: Medication Dose Route gabapentin 20 (more content not included)... [facility] Monitor Recordon 08-19-2022 Monitor Record [id number]#1.00CD:127 Normal [facility] Troponin 3 Hr.on 08-19-2022 Troponin I.cardiac [Mass/Vol] 7.10 pg/mL Low 10.10-27.10 [facility] Comment on above: Result Comment: The 95% CI (Confidence Interval) PPV (Positive Predictive Value) for myocardial infarction in females is 38 pg/mL, in males 51 pg/mL. The results should be used in conjunction with clinical conditions of myocardial infarction. (Access High Sensitivity Troponin I Instructions For Use, Swathi Forney, October 2017) Performed By: #### 1 [id number] ####[facility] [address] [place] [address] Auto Diffon 08-18-2022 Basophils/100 WBC (Bld) 0.9 % Normal 0.0-2.0 [facility] Comment on above: Order Comment: Order Added by Discern Expert. Performed By: #### 2 663635, 6641772, 41542944, 6793143, 2007602, 0075439, 52549150, 6597131, 65833238 ####[facility] [address] [place] [address] Basophils/Leukocytes Auto (Bld) [Pure # fraction] 0.0 E9/L Normal 0.0-0.2 [facility] Comment on above: Order Comment: Order Added by Discern Expert. Performed By: #### 2 960445, 1719619, 40467530, 3906610, 9357813, 1250993, 27474909, 9289336, 03240676 ####[facility] [address] [place] [address] Eosinophils/100 WBC (Bld) 4.0 % Normal 0.0-8.0 [facility] Comment on above: Order Comment: Order Added by Discern Expert. Performed By: #### 2 904733, 3837236, 27748325, 9449069, 6795967, 3951594, 37978109, 8339686, 25958616 ####[facility] [address] [place] [address] Eosinophils/Leukocyt es Auto (Bld) [Pure # fraction] 0.2 E9/L Normal 0.0-0.5 [facility] Comment on above: Order Comment: Order Added by Discern Expert. Performed By: #### 2 582688, 5634397, 16452421, 4354151, 4252550, 2231827, 23319330, 2767147, 11930242 ####[facility] [address] [place] [address] Lymphocytes/100 WBC (Bld) 24.9 % Normal 14.0-50.0 [facility] Comment on above: Order Comment: Order Added by Discern Expert. Performed By: #### 2 773399, 3283911, 67160146, 5230035, 5429106, 0978838, 04356439, 7812338, 07308475 ####[facility] [address] [place] [address] Lymphocytes/Leukocyt es Auto (Bld) [Pure # fraction] 1.3 E9/L Normal 1.0-4.0 [facility] Comment on above: Order Comment: Order Added by Shan Expert. Performed By: #### 2 875833, 7482771, 05300105, 6340059, 9337332, 1453539, 98052040, 4178565, 94589756 ####[place] [address] [place] [address] Monocytes/100 WBC (Bld) 14.4 % High 4.0-14.0 [facility] Comment on above: Order Comment: Order Added by Discern Expert. Performed By: #### 2 252371, 7599758, 59058503, 9064488, 1083589, 2421612, 74298963, 5800266, 82786298 ####[facility] [address] [place] [address] Monocytes/Leukocytes Auto (Bld) [Pure # fraction] 0.8 E9/L Normal 0.2-1.0 [facility] Comment on above: Order Comment: Order Added by Shan Expert. Performed By: #### 2 732437, 6508110, 61267481, 4434705, 0209973, 2947138, 98084793, 8813058, 54362871 ####[facility] [address] [place] [address] Neutrophils/100 WBC (Bld) 55.8 % Normal 36.0-75.0 [facility] Comment on above: Order Comment: Order Added by Discern Expert. Performed By: #### 2 718011, 5765166, 45334605, 8062095, 5932956, 4078423, 19272332, 7701570, 06539227 ####[facility] [address] [place] [address] Neutrophils/Leukocyt es Auto (Bld) [Pure # fraction] 3.0 E9/L Normal 2.0-7.5 [facility] Comment on above: Order Comment: Order Added by Discern Expert. Performed By: #### 2 593874, 5402432, 68184209, 1503428, 7289837, 1978836, 93708798, 8603695, 36975599 ####[facility] [address] [place] [address] BMPon 08-18-2022 Anion gap [Moles/Vol] 15 mmol/L Normal 6-16 [facility] Comment on above: Performed By: #### 2 910419, 4636233, 60462877, 8486682, 5011484, 3446705, 38071989, 1514826, 73546279 ####[facility] [address] [place] [address] Calcium [Mass/Vol] 9.1 mg/dL Normal 8.9-11.1 [facility] Comment on above: Performed By: #### 2 468638, 7047817, 88018151, 5829594, 2613108, 4310545, 09965248, 4964224, 65534799 ####[facility] [address] [place] [address] Chloride [Moles/Vol] 96 mmol/L Low 101-111 [facility] Comment on above: Performed By: #### 2 273015, 1030856, 84430639, 8702991, 6188047, 2078494, 81703226, 7445883, 23424428 ####[facility] [address] [place] [address] CO2 [Moles/Vol] 32 mmol/L High 21-31 [facility] Comment on above: Performed By: #### 2 073407, 6713032, 14903220, 3648217, 4406934, 7871529, 38969339, 4640534, 31157407 ####[facility] [address] [place] [address] Creatinine [Mass/Vol] 1.0 mg/dL Normal 0.5-1.3 [facility] Comment on above: Performed By: #### 2 735104, 1113089, 77335245, 5671536, 5978828, 8794576, 36701882, 2738123, 27140170 ####[facility] [address] [place] [address] Glucose [Mass/Vol] 111 mg/dL Normal 55-199 [facility] Comment on above: Result Comment: If t his glucose result represents a fasting glucose, interpretation should refer to the following reference range: 55-99 mg/dL Performed By: #### 2 288930, 6244824, 63314001, 9932371, 3038470, 6030404, 36708870, 9411581, 90659907 ####[facility] [address] [place] [address] Potassium [Moles/Vol] 4.6 mmol/L Normal 3.5-5.3 [facility] Comment on above: Result Comment: 'Spe cimen hemolyzed. Result may be affected. Redraw is recommended.' Performed By: #### 2 181814, 6472160, 47050991, 8301402, 2834723, 6496676, 75498927, 7407279, 21944871 ####[facility] [address] [place] [address] Sodium [Moles/Vol] 138 mmol/L Normal 135-145 [facility] Comment on above: Performed By: #### 2 556612, 4998340, 19976498, 6914985, 7890024, 2016874, 98133622, 0378546, 39200775 ####[facility] [address] [place] [address] Urea nitrogen [Mass/Vol] 22 mg/dL High 5-21 [facility] Comment on above: Performed By: #### 2 371450, 8278618, 25465940, 7081325, 8007642, 3510864, 99600096, 3418523, 07012679 ####[facility] [address] [place] [address] Urea nitrogen/Creatinine [Mass ratio] 22 No Units High 10-20 [facility] Comment on above: Performed By: #### 2 731284, 1506138, 14135624, 7893796, 7455259, 6282432, 37929143, 7222162, 63995730 ####[facility] [address] [place] [address] CBC w/ Auto Diffon 3 Erythrocyte distribution width (RBC) [Ratio] 13.4 % Normal 10.9-14.2 [facility] Comment on above: Performed By: #### 2 320533, 3063588, 30734922, 8496299, 8132498, 8535791, 93144787, 6281519, 08331295 ####[facility] [address] [place] [address] Hematocrit (Bld) [Volume fraction] 39.1 % Normal 34.0-46.0 [facility] Comment on above: Performed By: #### 2 599174, 1962027, 47848069, 4791541, 8602858, 0068896, 31631145, 2031537, 38055029 ####[facility] [address] [place] [address] Hemoglobin (Bld) [Mass/Vol] 13.1 g/dL Normal 12.0-16.0 [facility] Comment on above: Performed By: #### 2 573891, 9031528, 58868257, 8283733, 5805877, 5982495, 69473113, 6822504, 26338537 ####[facility] [address] [place] [address] MCH (RBC) [Entitic mass] 32.6 pg Normal 27.0-34.0 [facility] Comment on above: Performed By: #### 2 024251, 6469656, 02464296, 0888299, 8785305, 8999617, 01223411, 0270439, 85449082 ####[place] [address] [place] [address] MCHC (RBC) [Mass/Vol] 33.6 g/dL Normal 31.4-36.0 [facility] Comment on above: Performed By: #### 2 370455, 8629127, 01269185, 7143728, 5615456, 4391244, 88961484, 6830369, 94843769 ####[address] [address] MCV (RBC) [Entitic vol] 97.1 fL Normal 80.0-100.0 [facility] Comment on above: Performed By: #### 2 519210, 8284945, 80970906, 3588847, 5934321, 9950290, 21177549, 6949901, 17827995 ####[address] [address] Platelet mean volume (Bld) [Entitic vol] 8.2 fL Normal 6.4-10.8 [facility] Comment on above: Performed By: #### 2 677316, 6971564, 95232037, 0107386, 2596818, 1328627, 94162989, 3660795, 85887716 ####[address] [address] Platelets (Bld) [#/Vol] 277.0 E9/L Normal 150.0-500.0 [facility] Comment on above: Performed By: #### 2 564681, 8478298, 27190931, 7721644, 0360535, 3524884, 34693765, 2776570, 62943586 ####[facility] [address] [place] [address] RBC (Bld) [#/Vol] 4.0 E12/L Low 4.3-5.9 [facility] Comment on above: Performed By: #### 2 871607, 6774389, 45183755, 1992017, 7369637, 0598804, 29389480, 8481795, 91637513 ####[facility] [address] [place] [address] WBC corrected for nucl RBC Auto (Bld) [#/Vol] 5.3 E9/L Normal 4.0-11.0 [facility] Comment on above: Performed By: #### 2 004425, 8093597, 51829490, 7737076, 6588508, 8835082, 46681395, 7929921, 02909687 ####[facility] [address] [place] [address] Consent for Treatmenton Consent for Treatment [id number] #1.00CD:127 Normal [facility] Hep Func Panelon 08-18-2022 Albumin [Mass/Vol] 4.0 g/dL Normal 3.3-5.0 [facility] Comment on above: Performed By: #### 2 937757, 0982440, 50788995, 9278167, 4887596, 2141064, 28343901, 8139238, 69695759 ####[facility] [address] [place] [address] Albumin/Globulin (S) [Mass conc ratio] 1.2 Normal 1.1-2.2 [facility] Comment on above: Performed By: #### 2 819313, 9720893, 28815935, 1668719, 6391452, 1718598, 65296078, 8877771, 37062344 ####[facility] [address] [place] [address] ALP [Catalytic activity/Vol] 65 Int._Unit/L Normal 21-98 [facility] Comment on above: Performed By: #### 2 268523, 3137223, 66139953, 2132843, 5092537, 9369593, 25897589, 8400474, 34648810 ####[facility] [address] [place] [address] ALT No additional P-5'-P [Catalytic activity/Vol] 18 Int._Unit/L Normal 6-46 [facility] Comment on above: Result Comment: 'Spe cimen hemolyzed, result may be affected. Recommend redraw.' Performed By: #### 2 166550, 6754797, 42013319, 2535850, 0392027, 9766641, 01607732, 1498034, 02513193 ####[address] [address] AST [Catalytic activity/Vol] 32 Int._Unit/L Normal 5-43 [facility] Comment on above: Result Comment: 'Spe cimen hemolyzed, result may be affected. Recommend redraw.' Performed By: #### 2 171717, 3422737, 16757574, 3038527, 3951395, 4990961, 69014233, 3560478, 59310553 ####[facility] [address] [place] [address] Bilirubin [Mass/Vol] 1.0 mg/dL Normal 0.0-1.1 [facility] Comment on above: Result Comment: 'Spe cimen hemolyzed, result may be affected. Redraw is recommended.' Performed By: #### 2 060350, 9343982, 05755137, 0716555, 3560053, 7419022, 63480776, 9434577, 40956969 ####[facility] [address] [place] [address] Bilirubin.direct [Mass/Vol] 0.4 mg/dL Normal 0.1-0.4 [facility] Comment on above: Result Comment: 'Spe cimen hemolyzed, result may be affected. Redraw recommended.' Performed By: #### 2 826442, 0899182, 21352007, 5039749, 2672458, 6917656, 19674948, 8031479, 91971609 ####[facility] [address] [place] [address] Bilirubin.indirect [Mass or moles/Vol] 0.6 mg/dL Normal 0.1-0.9 [facility] Comment on above: Performed By: #### 2 297943, 5336141, 88100918, 9772223, 4542141, 6076495, 75234467, 9342108, 09067912 ####[facility] [address] [place] [address] Globulin (S) [Mass/Vol] 3.4 g/dL Normal 1.4-4.0 [facility] Comment on above: Performed By: #### 2 646618, 3244026, 21576346, 1957190, 5212108, 3015710, 93267175, 2261155, 20624318 ####[facility] [address] [place] [address] Protein [Mass/Vol] 7.4 g/dL Normal 6.0-7.8 [facility] Comment on above: Performed By: #### 2 932442, 5535415, 39851742, 0275903, 8123379, 5254950, 67682026, 7126367, 08329164 ####[facility] [address] [place] [address] Lipase Levelon 08-18-2022 Lipase [Catalytic activity/Vol] 38 U/L Normal 13-58 [facility] Comment on above: Performed By: #### 2 536450, 1288860, 28921075, 9835005, 6989529, 4021382, 30662887, 4876102, 78092125 ####[facility] [address] [place] [address] Magnesiumon 08-18-2022 Magnesium [Mass/Vol] 2.2 mg/dL Normal 1.3-2.4 [facility] Comment on above: Result Comment: 'Spe cimen hemolyzed, result may be affected. Redraw is recommended.' Performed By: #### 2 595678, 0828885, 01409711, 7786332, 9341983, 9627136, 54435432, 0736974, 52802225 ####[facility] [address] [place] [address] PT & PTTon 08-18-2022 aPTT Coag (PPP) [Time] 30.9 second(s) Normal 25.1-36.5 [facility] Comment on above: Result Comment: Para meter 15 days - 4 weeks 1 - 5 months 6 - 11 months 1 - 5 years 6 - 10 years 11 - 17 years PTT Mean: 35.4 (27.6-45.6) Mean: 33.5 (24.8-40.7) Mean: 32.4 (25.1-40.7) Mean: 31.6 (24.0-39.2) Mean: 31.6 (26.9-38.7) Mean: 31.0 (24.6-38.4) Pediatric Reference ranges were obtained from a study by Collin Daily et al. prepared from 1437 samples obtained at 7 different centers using the same coagulation reagent and instrumentation as [facility]. Currently there are no coagulation studies available worldwide for children to 14 days, and no normal ranges. Heparin therapeutic range (represented by Anti-Factor Xa activity of 0.2 - 0.4 U/mL) corresponds to PTT of 56.6 - 109.0 sec. Performed By: #### 2 [id number], [id number], [id number], 7354230, 5193441, [id number], [id number], 5040437, [id number] ####[facility] [address] [place] [address] INR Coag (PPP) [Relative time] 1.0 {INR} Invalid Interpretation Code [facility] Comment on above: Result Comment: INR results are specifically intended to assess patients stabilized on long-term Anticoagulation therapy suggested INR?s ?Less Intensive Anticoagulation? 2.0 ? 3.0 Conventional Range 3.0 ? 4.5 Performed By: #### 2 [id number], [id number], [id number], 0492472, 3781093, 8042241, 54038597, 4118473, [id number] ####[facility] [address] [place] [address] PT Coag (PPP) [Time] 10.7 second(s) Normal 9.4-12.5 [facility] Comment on above: Result Comment: 15 d ays - 4 weeks 1 - 5 months 6 -11 months 1 ? 5 years 6 ? 10 years 11 -17 years Mean: 11.2 (9.5 ? 12.6) Mean: 11.0 (9.7 ? 12.8) Mean: 11.0 (9.8 ? 13.0) Mean: 11.3 (9.9 ? 13.4) Mean: 11.7 (10.0 ? 14.6) Mean: 11.8 (10.0 - 14.1) Pediatric Reference ranges were obtained from a study by Collin Daily et al. prepared from 1437 samples obtained at 7 different centers using the same coagulation reagent and instrumentation as [facility]. Currently there are no coagulation studies available worldwide for children to 14 days, and no normal ranges. Performed By: #### 2 [id number], [id number], 88972152, 8578744, 1488472, 9818469, 13041808, 7594050, [id number] ####[facility] [address] [place] [address] Troponin 0 Hr.on 08-18-2022 Troponin I.cardiac [Mass/Vol] 6.30 pg/mL Low 10.10-27.10 [facility] Comment on above: Result Comment: The 95% CI (Confidence Interval) PPV (Positive Predictive Value) for myocardial infarction in females is 38 pg/mL, in males 51 pg/mL. The results should be used in conjunction with clinical conditions of myocardial infarction. (Access High Sensitivity Troponin I Instructions For Use, Swathi Forney, October 2017) Performed By: #### 2 [id number], [id number], [id number], 0404683, 0573373, 7179592, 90315255, 1986153, [id number] ####[facility] [address] [place] [address] XR Chest Single Viewon 08-18 XR Chest Single View Exam Date/Time: 08/18/2022 19:41 EDT Reason for Exam: Chest pain Report IMPRESSION: No acute infiltrates or effusions, no change since previous studies. CLINICAL HISTORY: Chest pain EXAMINATION: XR Chest Single View COMPARISON: Chest x-ray from 01/13/2022 FINDINGS: The cardiac silhouette is enlarged, similar to prior studies There is persistent asymmetric elevation of the right hemidiaphragm, similar to the prior study. The left lung is within normal limits. There are no acute osseous changes. Ordering Provider: Ashley Jordan FINAL REPORT Dictated: 08/18/2022 7:44 pm Constantino Bowling MD, V. Signed (Electronic Signature): 08/18/2022 7:44 pm Signed by: Constantino Bowling MD, V. Transcribed by: CAROLYN Technologist: MIRZA Technical Comments Radiation Dose: Ka,r in mGy = na DAP = na Normal [facility] eGFRon 08-18-2022 GFR/1.73 sq M.predicted among non-blacks MDRD (S/P/Bld) [Vol rate/Area] 58 mL/min/1.73 m2 Low >=59 [facility] Comment on above: Order Comment: Order added by Discern Expert. Result Comment: Studio Producer lillian kidney disease could be indicated at eGFR's of less than 60 mL/min/1.73m2. Kidney failure is indicated at less than 15 mL/min/1.73m2. Performed By: #### 2 [id number], 8063815, [id number], 7088916, 4593566, 3961762, 15817856, 7633070, [id number] ####[facility] [address] [place] [address] Family Medicine Office/Clini c Noteon 08-12-2022 Family Medicine Office/Clinic Note Chief Complaint F/U OMT need some refills HPI Staff Please speak with patient about scheduling an AWV. History of Present Illness 77 Years old Female here to f/u for back pain Chief complaint confirmed with the patient. is no longer using the wheel chair consistently occasionally using the wheel chair to walk I don't want to use the walker taking gabapentin BID (two tabs, BID) and percocet BID flexeril qHS pain management is planning to do an injection on 08/23 I'm hoping to get off those meds after the injection This patient was last seen by me earlier this month for low back pain and NOT treated with manipulation (OMT aka OMM) WHICH was deferred due to an issue with acute pain. The patient reports improvement of symptoms after OMT in the past. Today, the patient reports their symptoms are present but closer to what they normally are and is requesting OMT again. Based on their report of symptoms and my exam findings, I believe OMT is appropriate today. 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 Date: 08/23/2022 11:45 AM Scheduled Provider: Crow Gaona MD [address] [place], [address] [facility]: 09/05/2022 12:45 PM Scheduled Provider: Marilu Cronell PA-C [address] [place], [address] [facility] T[facility]ie Appt. Date: 09/21/2022 10:15 AM Scheduled Provider: Reyes Vega MD [address] [facility] [place], [address] ROS 13 point ROS negative except for HPI PHYSICAL EXAM Constitutional: Vital signs reviewed; OSIRIS HERRERA is well nourished, no acute distress - looks much better today Lungs: Clear to auscultation, non-labored respiration - expansion is symmetric Heart: Normal rate and rhythm, normal peripheral perfusion Lymph: Deferred Abd: Deferred : Deferred MSK: somewhat antalgic gait, poor posture, but stable on her feet bilat lumbar paraspinal restriction generalized tenderness along her ribs bilat diaphragm restriction tight bilat trapezius Skin: Warm, dry Neurologic: Awake, alert and oriented, speech is normal, no focal deficits, CN II-XII grossly intact Psychiatric: Cooperative, depressed - but mood has improved quite a bit Review of Systems PHQ Score Initial Depression Screen Score: 0 Physical Exam Vitals & Measurements T: 36.9 ?C(Oral) HR: 62(Peripheral) BP: 110/58 SpO2: 91% HT: 66 in HT: 168 cm WT: 86.9 kg WT: 191.18 lb BMI: 30.79 Procedure Osteopathic Manipulation Head: OA dysfunction - treated with BLT and FPR - with objective and subjective improvement Cervical Spine: Reduced range of motion, tenderness at the insertion of the middle scalene on rib 1 bilat; worse on the right - treated with BLT and FPR - with objective and subjective improvement Thoracic Spine: Chronic and acute tissue texture changes of the trapezius, rhomboid on the right - treated with myofascial, BLT and FPR - with objective and subjective improvement Lumbar Spine: Lumbar paraspinal restriction on the bilat - treated with myofascial, BLT and FPR - with objective and subjective improvement Sacral: SI dysfunction bilat but worse on the right - treated with BLT and FPR - with objective and subjective improvement Lower Extremity: bilat-sided hamstring restriction and right psoas restriction - treated with BLT and FPR - with objective and subjective improvement Rib: inhalation dysfunction of rib 9 on the right - treated with rib raising and BLT - with objective and subjective improvement Abdomen: Diaphragm restriction on the right - treated with inhibition to the diaphragm - with objective and subjective improvement Assessment/Plan 1. Acute low back pain with sciatica (M54.40: Lumbago with sciatica, unspecified side) Chronic. Stable Multifactorial etiology Medication does seem to provide ample benefit Does get benefit from OMT Discussed the importance of optimizing mechanics Discussed the rationale of manipulation in the future F/u prn. Ordered: cyclobenzaprine, 5 mg = 1 tab(s), Oral, Bedtime, # 30 tab(s), Refills(s) 11, [id number], cm, 08/12/22 9:51:00 EDT, Height/Length Dosing, 86.9, kg, 08/12/22 9:51:00 EDT, Weight Dosing gabapentin, 200 mg = 2 cap(s), Oral, BID, # 120 cap(s), Refills(s) 11, [id number] 168, cm, 08/12/22 9:51:00 EDT, Height/Length Dosing, 86.9, kg, 08/12/22 9:51:00 EDT, Weight Dosing 2. Adjustment reaction (F43.20: Adjustment disorder, unspecified) Chronic (more content not included)... Normal [facility] Comment on above: Result Comment: Elec tronically Signed By: Dakotah Gallardo DO\Date and Time Signed: 08/12/22 16:27 EDT Pre-Certification Formon Pre-Certification Form [id number] #[id number]:127 Normal [facility] CHEMISTRYOrdered By: SYSTEM SYSTEM on 01-13-2022 Anion gap [Moles/Vol] 16 mmol/L Normal 6 - 16 mEq/L [facility] Remisol Calcium [Mass/Vol] 9.2 mg/dL Normal 8.9 - 11.1 mg/dL [facility] Remisol Chloride [Moles/Vol] 99 mmol/L Low 101 - 111 mmol/ L [facility] Remisol CO2 [Moles/Vol] 28 mmol/L Normal 21 - 31 mmol/L [facility] Remisol Creatinine [Mass/Vol] 0.8 mg/dL Normal 0.5 - 1.3 mg/dL [facility] Remisol GFR/1.73 sq M.predicted among blacks MDRD (S/P/Bld) [Vol rate/Area] mL/min/1.73 m2 Normal >=59mL/min/1.73 m2 [facility] Chem S GFR/1.73 sq M.predicted among non-blacks MDRD (S/P/Bld) [Vol rate/Area] mL/min/1.73 m2 Normal >=59mL/min/1.[address] [facility] Chem S Glucose [Mass/Vol] 109 mg/dL Normal 55 - 199 mg/dL [facility] Remisol Lactate [Mass/Vol] 1.8 mmol/L Normal 0.5 - 2.2 mmol/L [facility] Remisol Potassium [Moles/Vol] 3.5 mmol/L Normal 3.5 - 5.3 mmol/L [facility] Remisol Sodium [Moles/Vol] 139 mmol/L Normal 135 - 145 mmol/L [facility] Remisol Troponin I.cardiac [Mass/Vol] 6.90 pg/mL Low 10.10 - 27.10 pg/mL [facility] Remisol Urea nitrogen [Mass/Vol] 20 mg/dL Normal 5 - 21 mg/dL [facility] Remisol Urea nitrogen/Creatinine [Mass ratio] 25 mg/mg High 10 - [address] [facility] Remisol CHEMISTRYOrdered By: Geovany Pink on 01-13-2022 Natriuretic peptide B (Bld) [Mass/Vol] 23 pg/mL Normal 5 - 80 pg/mL [facility] HemeManSS COAGULATIONOrdered By: Daisy Lanier on 01-13-2022 aPTT Coag (PPP) [Time] 26.3 s Normal 25.1 - 36.5 second(s) [facility] Auto Coag INR Coag (PPP) [Relative time] 0.9 {INR} Invalid Interpretation Code [facility] Auto Coag PT Coag (PPP) [Time] 9.7 s Normal 9.4 - 1 2.5 second(s) [facility] Auto Coag HEMATOLOGYOrdered By: SYSTEM SYSTEM on 01-13-2022 Basophils/100 WBC (Bld) 1.0 % Normal 0.0 - 2.0 % [facility] HemeAutoSS Basophils/Leukocytes Auto (Bld) [Pure # fraction] 0.1 E9/L Normal 0.0 - 0.2 E9/L [facility]eAutoSS Eosinophils/100 WBC (Bld) 1.1 % Normal 0.0 - 8.0 % [facility] HemeAutoSS Eosinophils/Leukocyt es Auto (Bld) [Pure # fraction] 0.1 E9/L Normal 0.0 - 0.5 E9/L [facility] HemeAutoSS Lymphocytes/100 WBC (Bld) 21.8 % Normal 14.0 - 50.0 % [facility] HemeAutoSS Lymphocytes/Leukocyt es Auto (Bld) [Pure # fraction] 1.6 E9/L Normal 1.0 - 4.0 E9/L [facility]eAutoSS Monocytes/100 WBC (Bld) 6.5 % Normal 4.0 - 14.0 % [facility] HemeAutoSS Monocytes/Leukocytes Auto (Bld) [Pure # fraction] 0.5 E9/L Normal 0.2 - 1.0 E9/L [facility]eAutoSS Neutrophils/100 WBC (Bld) 69.6 % Normal 36.0 - 75.0 % [facility] HemeAutoSS Neutrophils/Leukocyt es Auto (Bld) [Pure # fraction] 5.1 E9/L Normal 2.0 - 7.5 E9/L [facility]eAutoSS HEMATOLOGYOrdered By: Santhosh Pink on 01-13-2022 Erythrocyte distribution width (RBC) [Ratio] 13.7 % Normal 10.9 - 14.2 % [facility]eAutoSS Hematocrit (Bld) [Volume fraction] 39.6 % Normal 34.0 - 46.0 % [facility]eAutoSS Hemoglobin (Bld) [Mass/Vol] 13.1 g/dL Normal 12.0 - 16.0 gm/dL [facility] MCH (RBC) [Entitic mass] 31.9 pg Normal 27.0 - 34.0 pg [facility] MCHC (RBC) [Mass/Vol] 33.0 g/dL Normal 31.4 - 36.0 gm/dL [facility]eAutoSS MCV (RBC) [Entitic vol] 96.5 fL Normal 80.0 - 100.0 fL [facility]Auto[facility] Platelet mean volume (Bld) [Entitic vol] 8.1 fL Normal 6.4 - 10.8 fL [facility]eAutoSS Platelets (Bld) [#/Vol] 288.0 E9/L Normal 150.0 - 500.0 E9/L [facility]eAutoSS RBC (Bld) [#/Vol] 4.1 E12/L Low 4.3 - 5.9 E12/L [facility]eAutoSS WBC corrected for nucl RBC Auto (Bld) [#/Vol] 7.3 E9/L Normal 4.0 - 11.0 E9/L [facility]eAutoSS CHEMISTRYOrdered By: SYSTEM SYSTEM on 09-29-2021 Albumin [Mass/Vol] 3.9 g/dL Normal 3.3 - 5.0 gm/dL [facility] Remisol Albumin/Globulin [Mass ratio] 1.2 {ratio} Normal 1.1 - 2.2 [facility] Remisol ALP [Catalytic activity/Vol] 56 [iU]/d Normal 21 - 98 Int._Unit/L [facility] Remisol ALT No additional P-5'-P [Catalytic activity/Vol] 29 [iU]/d Normal 6 - 46 Int._Unit/L [facility] Remisol Anion gap [Moles/Vol] 14 mmol/L Normal 6 - 16 mEq/L [facility] Remisol AST [Catalytic activity/Vol] 23 [iU]/d Normal 5 - 43 Int._Unit/L [facility] Remisol Bilirubin [Mass/Vol] 0.7 mg/dL Normal 0.0 - 1.1 mg/dL [facility] Remisol Bilirubin.direct [Mass/Vol] mg/dL Normal 0.1 - 0.4 mg/dL [facility] Remisol Bilirubin.indirect [Mass or moles/Vol] Unable to Calculate mg/dL Invalid Interpretation Code 0.1 - 0.9 mg/dL [facility] Remisol Calcium [Mass/Vol] 9.4 mg/dL Normal 8.9 - 11.1 mg/dL [facility] Remisol Chloride [Moles/Vol] 96 mmol/L Low 101 - 111 mmol/ L [facility] Remisol CO2 [Moles/Vol] 27 mmol/L Normal 21 - 31 mmol/L [facility] Remisol Creatinine [Mass/Vol] 0.9 mg/dL Normal 0.5 - 1.3 mg/dL [facility] Remisol GFR/1.73 sq M.predicted among blacks MDRD (S/P/Bld) [Vol rate/Area] mL/min/1.73 m2 Normal >=59mL/min/1.73 m2 [facility] Chem S GFR/1.73 sq M.predicted among non-blacks MDRD (S/P/Bld) [Vol rate/Area] mL/min/1.73 m2 Normal >=59mL/min/1.[address] [facility] Chem S Globulin (S) [Mass/Vol] 3.3 g/dL Normal 1.4 - 4.0 gm/dL [facility] Remisol Glucose [Mass/Vol] 123 mg/dL Normal 55 - 199 mg/dL [facility] Remisol Lipase [Catalytic activity/Vol] 40 U/L Normal 13 - 58 unit/L [facility] Remisol Potassium [Moles/Vol] 4.2 mmol/L Normal 3.5 - 5.3 mmol/L [facility] Remisol Protein [Mass/Vol] 7.2 g/dL Normal 6.0 - 7.8 gm/dL [facility] Remisol Sodium [Moles/Vol] 133 mmol/L Low 135 - 145 mmol/L [facility] Remisol Troponin I.cardiac [Mass/Vol] 5.00 pg/mL Low 10.10 - 27.10 pg/mL [facility] Remisol Urea nitrogen [Mass/Vol] 26 mg/dL High 5 - 21 mg/dL [facility] Remisol Urea nitrogen/Creatinine [Mass ratio] 29 mg/mg High 10 - 20 [facility] Remisol COAGULATIONOrdered By: Navya Kaur on 09-29-2021 aPTT Coag (PPP) [Time] 27.8 s Normal 25.1 - 36.5 second(s) [facility] Auto Coag INR Coag (PPP) [Relative time] 1.0 {INR} Invalid Interpretation Code [facility] Auto Coag PT Coag (PPP) [Time] 11.4 s Normal 10.2 - 12.9 second(s) [facility] Auto Coag HEMATOLOGYOrdered By: SYSTEM SYSTEM on 09-29-2021 Basophils/100 WBC (Bld) 0.3 % Normal 0.0 - 2.0 % [facility] HemeAutoSS Basophils/Leukocytes Auto (Bld) [Pure # fraction] 0.0 E9/L Normal 0.0 - 0.2 E9/L [facility]eAutoSS Eosinophils/100 WBC (Bld) 0.4 % Normal 0.0 - 8.0 % [facility]eAutoSS Eosinophils/Leukocyt es Auto (Bld) [Pure # fraction] 0.0 E9/L Normal 0.0 - 0.5 E9/L [facility]eAutoSS Lymphocytes/100 WBC (Bld) 11.3 % Low 14.0 - 50.0 % [facility]eAutoSS Lymphocytes/Leukocyt es Auto (Bld) [Pure # fraction] 1.1 E9/L Normal 1.0 - 4.0 E9/L [facility]eAutoSS Monocytes/100 WBC (Bld) 2.9 % Low 4.0 - 14.0 % [facility] HemeAutoSS Monocytes/Leukocytes Auto (Bld) [Pure # fraction] 0.3 E9/L Normal 0.2 - 1.0 E9/L [facility]AutoSS Neutrophils/100 WBC (Bld) 85.1 % High 36.0 - 75.0 % [facility] HemeAutoSS Neutrophils/Leukocyt es Auto (Bld) [Pure # fraction] 8.5 E9/L High 2.0 - 7.5 E9/L [facility]SS HEMATOLOGYOrdered By: Santhosh Pink on 09-29-2021 Erythrocyte distribution width (RBC) [Ratio] 13.6 % Normal 10.9 - 14.2 % [facility]eAutoSS Hematocrit (Bld) [Volume fraction] 39.0 % Normal 34.0 - 46.0 % [facility]eAutoSS Hemoglobin (Bld) [Mass/Vol] 13.2 g/dL Normal 12.0 - 16.0 gm/dL [facility] MCH (RBC) [Entitic mass] 32.4 pg Normal 27.0 - 34.0 pg [facility]Auto[facility] MCHC (RBC) [Mass/Vol] 33.8 g/dL Normal 31.4 - 36.0 gm/dL [facility] MCV (RBC) [Entitic vol] 96.0 fL Normal 80.0 - 100.0 fL [facility]eAuto[facility] Platelet mean volume (Bld) [Entitic vol] 7.6 fL Normal 6.4 - 10.8 fL [facility]eAutoSS Platelets (Bld) [#/Vol] 350.0 E9/L Normal 150.0 - 500.0 E9/L [facility]AutoSS RBC (Bld) [#/Vol] 4.1 E12/L Low 4.3 - 5.9 E12/L [facility]Auto[facility] WBC corrected for nucl RBC Auto (Bld) [#/Vol] 10.0 E9/L Normal 4.0 - 11.0 E9/L [facility]eAutoSS Initial Visit (Orthopaedic S urgery)on 11-04-2020 Initial Visit (Orthopaedic Surgery) Diagnoses/Problems Assessed Knee pain (719.46) (M25.569) History of Vision problems (V41.0) (H54.7) History of malignant neoplasm (V10.90) (Z85.9) History of hypertension (V12.59) (Z86.79) History of Numbness and tingling (782.0) (R20.0,R20.2) History of Breathing problem (786.00) (R06.9) History of Digestive problems (V47.3) (K92.9) History of arthritis (V13.4) (Z87.39) History of cerebrovascular accident (V12.54) (Z86.73) Former smoker (V15.82) (Z87.891) History of Tonsillectomy History of Joint replacement procedure History of Appendectomy History of complications due to general anesthesia (V15.89) (Z91.89) Orders Knee pain Xray Knee 3 View; Status:Hold For - Scheduling; Requested for:[id number]; Laterality : Left Radiologist to Determine Optimal Study : Y What are the patient's signs and symptoms? : pain Xray Knee Complete 4 or more View; Status:Canceled; Laterality : Left Radiologist to Determine Optimal Study : Y What are the patient's signs and symptoms? : pain Primary osteoarthritis of left knee Basic Hinged Knee; Status:Complete; Done: [id number] SocHx: Former smoker Tobacco Use Screening; Status:Complete; Done: [id number] Chief Complaint New Pt c/o Lt knee pain, x-rays today History of Present Illness New patient to me 75-year-old female complaining of pain in her left knee. Patient had a left knee done out of town in 2017 did pretty well postoperatively but now she is complaining of swelling and pain in her knee. She had a fall about a year and a half ago and thinks that may be when her symptoms started. She is unable to take aspirin due to allergy she does take Tylenol. Location of pain: Left knee medial and anteriorly Quality of pain: Chronic aching pain getting progressively worse Modifying factors: Worse with standing for prolonged period time or going up and down stairs sometimes feels like her knees can hyperextend Associated signs and symptoms: Swelling stiffness no numbness or tingling Previous treatment: Tylenol and Motrin Past medical history The patient's past medical history, family history, social history, and review of systems were documented on the patient's medical intake form. The medical intake form was reviewed and scanned into the electronic medical record for future use. History is otherwise negative except as stated in the HPI. Physical exam General: Alert and oriented to place, person, and time. No acute distress and breathing comfortably; pleasant and cooperative with the examination. HEENT: Head is normocephalic and atraumatic. Neck: Supple, no visible swelling. Cardiovascular: Good perfusion to the affected extremity. Lungs: No audible wheezing or labored breathing. Abdomen: Nondistended HEME/Lymph : No visible abnormalities bilateral lower extremity Extremity: Left knee has a well-healed midline incision no signs of infection minimal knee effusion no redness no drainage no signs of infection calf is nontender little bit up instability to varus or valgus stress mild tenderness along the MCL brisk cap refill compartments soft calf is nontender Diagnostics: See dictated x-ray report Assessment: Status post total knee replacement left with mild instability and pain Treatment plan: 1. The natural history of the condition and its associated treatment alternatives including surgical and nonsurgical options were discussed with the patient at length. 2. Recommend continued conservative treatment a short runner knee brace for support and a home exercise program for knee conditioning follow-up in a month. 3. [ ] 4. All of the patient's questions were answered. This note was prepared using voice recognition software. The details of this note are correct and have been reviewed, and corrected to the best of my ability. Some grammatical areas may persist related to the [employer] software Bashir Rivera MD . Active Problems Problems Knee pain (719.46) (M25.569) Past Medical History Problems History of Breathing problem (786.00) (R06.9) History of Digestive problems (V47.3) (K92.9) History of arthritis (V13.4) (Z87.39) History of cerebrovascular accident (V12.54) (Z86.73) History of complications due to general anesthesia (V15.89) (Z91.89) History of hypertension (V12.59) (Z86.79) History of malignant neoplasm (V10.90) (Z85.9) History of Numbness and tingling (782.0) (R20.0,R20.2) History of Vision problems (V41.0) (H54.7) Surgical History Problems History of Appendectomy History of Joint replacement procedure History of Tonsillectomy Social History Problems Former smoker (V15.82) (Z87.891) Allergies Adhesive Tape TAPE Recorded By: Valeri Kinsey MA; 11/04/2020 8:10:45 AM Aspirin TABS Recorded By: Valeri Kinsey MA; 11/04/2020 8:10:45 AM Iodine SOLN Recorded By: Valeri Kinsey MA; 11/04/2020 8:10:45 AM Penicillins Recorded By: Valeri Kinsey MA; 11/04/2020 8:10:45 AM Sulfa Drugs Record (more content not included)... Normal [facility] KNEE 3 VIEWSon 11-04-2020 KNEE 3 VIEWS Patient Name: OSIRIS HERRERA STUDY: KNEE; 3 VIEWS; Left; 11/04/2020 8:14 am INDICATION: pain. ACCESSION NUMBER(S): [id number] ORDERING CLINICIAN: BASHIR RIVERA FINDINGS: Left knee three views. Status post cemented total knee replacement components in good position no signs of fracture dislocation or other bony abnormality Electronically signed by: BASHIR RIVERA MD Normal [facility] Radiologyon 11-04-2020 XR Knee 3 Views Normal [facility] Work Phone: COVID-19 PCRon 11-18-2019 SARS-CoV-2, CHRISTINA Not Detected Normal Not Detected [facility] Comment on above: Result Comment: This nucleic acid amplification test was developed and its performance characteristics determined by [employer]. Nucleic acid amplification tests include PCR and TMA. This test has not been FDA cleared or approved. This test has been authorized by FDA under an Emergency Use Authorization (EUA). This test is only authorized for the duration of time the declaration that circumstances exist justifying the authorization of the emergency use of in vitro diagnostic tests for detection of SARS-CoV-2 virus and/or diagnosis of COVID-19 infection under section 564(b)(1) of the Act, 21 U.S.C. 360bbb-3(b) (1), unless the authorization is terminated or revoked sooner. When diagnostic testing is negative, the possibility of a false negative result should be considered in the context of a patient's recent exposures and the presence of clinical signs and symptoms consistent with COVID-19. An individual without symptoms of COVID-19 and who is not shedding SARS-CoV-2 virus would expect to have a negative (not detected) result in this assay. Performed By: #### C VDPCR, CVDSTAT #### [facility] [address] [id number] Brian Newell PRIORITY COVID PROCESSINGon 11-18-2019 Comment Comment Normal [facility] Comment on above: Result Comment: Rece ived Performed By: #### C VDPCR, CVDSTAT #### [facility] [address] [id number] Brian Newell Social History Date Type Detail Facility Start: 03-24-2006 End: 07-31-2023 Tobacco smoking status NHIS Former smoker [facility] Start: 03-24-2006 Cigarettes smoked current (pack per day) - Reported [facility] Start: 03-24-2006 Alcohol intake Current drinke r of alcohol (finding) [facility] Start: 1945 Sex Assigned At Not on file [facility] End: 03-13-2000 History of tobacco use Current smoker [facility] Work Phone: End: 03-13-2000 History of tobacco use Cigarette Smoker [facility] Work Phone: Tobacco smoking status Never [facility] Sex Assigned At Female [facility] Vital Signs Date Time Vital Sign Value Performing Clinician Facility 07-31-2023 14:53-0400 Blood Pressure Location PRESTON LENNON [facility] 07-31-2023 14:53-0400 Body temperature 97.88 [degF] PRESTON LENNON [facility] 07-31-2023 14:53-0400 Diastolic blood pressure 70 mm[Hg] PRESTON LENNON [facility] 07-31-2023 14:53-0400 Heart rate 96 /min PRESTON LENNON [facility] 07-31-2023 14:53-0400 Respiratory rate 16 /min PRESTON LENNON [facility] 07-31-2023 14:53-0400 Systolic blood pressure 120 mm[Hg] PRESTON LENNON [facility] 07-17-2023 13:47-0400 Diastolic blood pressure 74 mm[Hg] Marilu Cornell [facility] 07-17-2023 13:47-0400 Heart rate 75 /min Marilu Cornell [facility] 07-17-2023 13:47-0400 Mean blood pressure 92 mm[Hg] Marilu Cornell [facility] 07-17-2023 13:47-0400 Respiratory rate 14 /min Marilu Cornell [facility] 07-17-2023 13:47-0400 Systolic blood pressure 128 mm[Hg] Mariluzach Cornell [facility] 07-04-2023 08:33-0400 Heart rate 81 /min Crow Gaona [facility] 07-04-2023 08:33-0400 SaO2% (BldA) [Mass fraction] 92 % Crow Gaona [facility] 07-04-2023 08:33-0400 Diastolic blood pressure 76 mm[Hg] Crow Gaona [facility] 07-04-2023 08:33-0400 Mean blood pressure 105 mm[Hg] Crow Jimenez [facility] 07-04-2023 08:33-0400 Systolic blood pressure 162 mm[Hg] Crow Jimenez [facility] 07-04-2023 08:33-0400 Respiratory rate 16 /min Crow Jimenez [facility] 07-04-2023 08:29-0400 Diastolic blood pressure 84 mm[Hg] Crow Jimenez [facility] 07-04-2023 08:29-0400 Respiratory rate 14 /min Crow Jimenez [facility] 07-04-2023 08:29-0400 SaO2% (BldA) [Mass fraction] 96 % Crow Jimenez [facility] 07-04-2023 08:29-0400 Systolic blood pressure 174 mm[Hg] Crow Jimenez [facility] 07-04-2023 07:49-0400 Heart rate 85 /min Crow Jimenez [facility] 07-04-2023 07:49-0400 SaO2% (BldA) [Mass fraction] 94 % Crow Jimenez [facility] 07-04-2023 07:47-0400 Diastolic blood pressure 82 mm[Hg] Crow Jimenez [facility] 07-04-2023 07:47-0400 Mean blood pressure 107 mm[Hg] Crow Jimenez [facility] 07-04-2023 07:47-0400 Systolic blood pressure 157 mm[Hg] Crow Jimenez [facility] 07-04-2023 07:47-0400 Body temperature 97.7 [degF] Crow Gaona [facility] 07-04-2023 07:46-0400 Respiratory rate 15 /min Crow Gaona [facility] 03-31-2023 13:43-0500 Blood Pressure Location [facility] 03-31-2023 13:43-0500 Diastolic blood pressure 64 mm[Hg] [facility] 03-31-2023 13:43-0500 Heart rate 74 /min [facility] 03-31-2023 13:43-0500 SaO2% (BldA) [Mass fraction] 88 % [facility] 03-31-2023 13:43-0500 Systolic blood pressure 116 mm[Hg] [facility] 01-09-2023 15:30-0400 Blood Pressure Location [facility] 01-09-2023 15:30-0400 Diastolic blood pressure 70 mm[Hg] [facility] 01-09-2023 15:30-0400 Heart rate 68 /min [facility] 01-09-2023 15:30-0400 Respiratory rate 16 /min [facility] 01-09-2023 15:30-0400 SaO2% (BldA) [Mass fraction] 92 % [facility] 01-09-2023 15:30-0400 Systolic blood pressure 130 mm[Hg] [facility] 11-04-2022 10:20-0400 Blood Pressure Location [facility] 11-04-2022 10:20-0400 Diastolic blood pressure 70 mm[Hg] [facility] 11-04-2022 10:20-0400 Heart rate 78 /min [facility] 11-04-2022 10:20-0400 SaO2% (BldA) [Mass fraction] 90 % [facility] 11-04-2022 10:20-0400 Systolic blood pressure 110 mm[Hg] [facility] 09-16-2022 10:01-0400 Blood Pressure Location [facility] 09-16-2022 10:01-0400 Diastolic blood pressure 60 mm[Hg] [facility] 09-16-2022 10:01-0400 Heart rate 75 /min [facility] 09-16-2022 10:01-0400 SaO2% (BldA) [Mass fraction] 90 % [facility] 09-16-2022 10:01-0400 Systolic blood pressure 100 mm[Hg] [facility] 09-05-2022 12:44-0400 Diastolic blood pressure 76 mm[Hg] Marilu [employer] [facility] 09-05-2022 12:44-0400 Heart rate 76 /min Marilu [employer] [facility] 09-05-2022 12:44-0400 Mean blood pressure 90 mm[Hg] Marilu [employer] [facility] 09-05-2022 12:44-0400 Respiratory rate 12 /min Marilu [employer] [facility] 09-05-2022 12:44-0400 Systolic blood pressure 117 mm[Hg] Marliu [employer] [facility] 08-12-2022 09:46-0400 Blood Pressure Location [facility] 08-12-2022 09:46-0400 Body temperature 98.42 [degF] [facility] 08-12-2022 09:46-0400 Diastolic blood pressure 58 mm[Hg] [facility] 08-12-2022 09:46-0400 Heart rate 62 /min [facility] 08-12-2022 09:46-0400 SaO2% (BldA) [Mass fraction] 91 % [facility] 08-12-2022 09:46-0400 Systolic blood pressure 110 mm[Hg] [facility] 07-22-2022 12:55-0400 Diastolic blood pressure 68 mm[Hg] Marilu [employer] [facility] 07-22-2022 12:55-0400 Heart rate 81 /min Marilu [employer] [facility] 07-22-2022 12:55-0400 Mean blood pressure 89 mm[Hg] Marilu [employer] [facility] 07-22-2022 12:55-0400 Respiratory rate 16 /min Marilu [employer] [facility] 07-22-2022 12:55-0400 Systolic blood pressure 131 mm[Hg] Marilu [employer] [facility] 07-15-2022 11:02-0400 Blood Pressure Location [facility] 07-15-2022 11:02-0400 Body temperature 97.88 [degF] [facility] 07-15-2022 11:02-0400 Diastolic blood pressure 70 mm[Hg] [facility] 07-15-2022 11:02-0400 Heart rate 73 /min [facility] 07-15-2022 11:02-0400 SaO2% (BldA) [Mass fraction] 90 % [facility] 07-15-2022 11:02-0400 Systolic blood pressure 130 mm[Hg] [facility] 07-11-2022 15:24-0400 Blood Pressure Location Floresita Clinton [facility] 07-11-2022 15:24-0400 Diastolic blood pressure 69 mm[Hg] Floresita Clinton [facility] 07-11-2022 15:24-0400 Heart rate 78 /min Floresita Clinton [facility] 07-11-2022 15:24-0400 SaO2% (BldA) [Mass fraction] 93 % Floresita Clinton [facility] 07-11-2022 15:24-0400 Systolic blood pressure 104 mm[Hg] Floresita Clinton [facility] 07-04-2022 13:33-0400 Diastolic blood pressure 76 mm[Hg] Marilu Cornell [facility] 07-04-2022 13:33-0400 Heart rate 68 /min Marilu Cornell [facility] 07-04-2022 13:33-0400 Mean blood pressure 97 mm[Hg] Marilu Cornell [facility] 07-04-2022 13:33-0400 Respiratory rate 14 /min Marilu Cornell [facility] 07-04-2022 13:33-0400 Systolic blood pressure 140 mm[Hg] Marilu Cornell [facility] 06-06-2022 14:35-0400 Heart rate 93 /min Crow Gaona [facility] 06-06-2022 14:35-0400 SaO2% (BldA) [Mass fraction] 93 % Crow Gaona [facility] 06-06-2022 14:35-0400 Respiratory rate 16 /min Crow Jimenez [facility] 06-06-2022 14:35-0400 Diastolic blood pressure 82 mm[Hg] Crow Jimenez [facility] 06-06-2022 14:35-0400 Mean blood pressure 103 mm[Hg] Crow Jimenez [facility] 06-06-2022 14:35-0400 Systolic blood pressure 143 mm[Hg] Crow Jimenez [facility] 06-06-2022 14:31-0400 Diastolic blood pressure 79 mm[Hg] Crow Jimenez [facility] 06-06-2022 14:31-0400 Heart rate 96 /min Crow Jimenez [facility] 06-06-2022 14:31-0400 Systolic blood pressure 134 mm[Hg] Crow Jimenez [facility] 06-06-2022 14:12-0400 Heart rate 94 /min Crow Jimenez [facility] 06-06-2022 14:10-0400 Body temperature 98.06 [degF] Crow Jimenez [facility] 06-06-2022 14:10-0400 Diastolic blood pressure 84 mm[Hg] Crow Jimenez [facility] 06-06-2022 14:10-0400 Mean blood pressure 106 mm[Hg] Crow Jimenez [facility] 06-06-2022 14:10-0400 Systolic blood pressure 150 mm[Hg] Crow Jimenez [facility] 06-06-2022 14:08-0400 Respiratory rate 18 /min Crow Jimenez [facility] 05-30-2022 11:01-0400 Blood Pressure Location [facility] 05-30-2022 11:01-0400 Body temperature 98.06 [degF] [facility] 05-30-2022 11:01-0400 Diastolic blood pressure 70 mm[Hg] [facility] 05-30-2022 11:01-0400 Heart rate 75 /min [facility] 05-30-2022 11:01-0400 SaO2% (BldA) [Mass fraction] 94 % [facility] 05-30-2022 11:01-0400 Systolic blood pressure 130 mm[Hg] [facility] 05-25-2022 10:23-0400 Blood Pressure Location [email or web address] [facility] 05-25-2022 10:23-0400 Diastolic blood pressure 72 mm[Hg] [employer] [facility] 05-25-2022 10:23-0400 Heart rate 78 /min [employer] [facility] 05-25-2022 10:23-0400 SaO2% (BldA) [Mass fraction] 95 % [employer] [facility] 05-25-2022 10:23-0400 Systolic blood pressure 123 mm[Hg] [employer] [facility] 05-16-2022 09:47-0500 Diastolic blood pressure 83 mm[Hg] Marilu Cornell [facility] 05-16-2022 09:47-0500 Heart rate 89 /min Marilu Cornell [facility] 05-16-2022 09:47-0500 Mean blood pressure 104 mm[Hg] Marilu Cornell [facility] 05-16-2022 09:47-0500 Respiratory rate 16 /min Marilu Cornell [facility] 05-16-2022 09:47-0500 Systolic blood pressure 145 mm[Hg] Marilu Cornell [facility] 04-19-2022 10:22-0500 Blood Pressure Location [facility] 04-19-2022 10:22-0500 Body temperature 97.7 [degF] [facility] 04-19-2022 10:22-0500 Diastolic blood pressure 66 mm[Hg] [facility] 04-19-2022 10:22-0500 Heart rate 81 /min [facility] 04-19-2022 10:22-0500 SaO2% (BldA) [Mass fraction] 91 % [facility] 04-19-2022 10:22-0500 Systolic blood pressure 110 mm[Hg] [facility] 03-21-2022 13:23-0500 Blood Pressure Location Floresita Clinton [facility] 03-21-2022 13:23-0500 Diastolic blood pressure 71 mm[Hg] Floresita Clinton [facility] 03-21-2022 13:23-0500 Heart rate 74 /min Floresita Clinton [facility] 03-21-2022 13:23-0500 SaO2% (BldA) [Mass fraction] 95 % Floresita Clinton [facility] 03-21-2022 13:23-0500 Systolic blood pressure 114 mm[Hg] Floresita Kangm [facility] 03-16-2022 09:40-0500 Blood Pressure Location [facility] 03-16-2022 09:40-0500 Body temperature 98.24 [degF] [facility] 03-16-2022 09:40-0500 Diastolic blood pressure 70 mm[Hg] [facility] 03-16-2022 09:40-0500 Heart rate 76 /min [facility] 03-16-2022 09:40-0500 SaO2% (BldA) [Mass fraction] 92 % [facility] 03-16-2022 09:40-0500 Systolic blood pressure 100 mm[Hg] [facility] 02-28-2022 15:58-0500 Blood Pressure Location [facility] 02-28-2022 15:58-0500 Body temperature 98.24 [degF] [facility] 02-28-2022 15:58-0500 Diastolic blood pressure 84 mm[Hg] [facility] 02-28-2022 15:58-0500 Heart rate 76 /min [facility] 02-28-2022 15:58-0500 SaO2% (BldA) [Mass fraction] 94 % [facility] 02-28-2022 15:58-0500 Systolic blood pressure 128 mm[Hg] [facility] 01-13-2022 12:00-0400 Diastolic blood pressure 60 mm[Hg] Crispin Vila [facility] 01-13-2022 12:00-0400 Heart rate 101 /min Crispin iVla [facility] 01-13-2022 12:00-0400 Mean blood pressure 80 mm[Hg] Crispin Vila [facility] 01-13-2022 12:00-0400 SaO2% (BldA) [Mass fraction] 92 % Crispin Vila [facility] 01-13-2022 12:00-0400 Systolic blood pressure 120 mm[Hg] Crispin Julito [facility] 01-13-2022 11:30-0400 Diastolic blood pressure 64 mm[Hg] Crispin Julito [facility] 01-13-2022 11:30-0400 Heart rate 94 /min Crispin Julito [facility] 01-13-2022 11:30-0400 Mean blood pressure 81 mm[Hg] Crispin Julito [facility] 01-13-2022 11:30-0400 Respiratory rate 18 /min Crispin Julito [facility] 01-13-2022 11:30-0400 SaO2% (BldA) [Mass fraction] 93 % Crispin Julito [facility] 01-13-2022 11:30-0400 Systolic blood pressure 116 mm[Hg] Crispin Julito [facility] 01-13-2022 11:08-0400 Heart rate 77 /min Crispin Julito [facility] 01-13-2022 11:08-0400 SaO2% (BldA) [Mass fraction] 98 % Crispni Julito [facility] 01-13-2022 11:01-0400 Respiratory rate 20 /min Crispin Julito [facility] 01-13-2022 11:00-0400 Diastolic blood pressure 77 mm[Hg] Crispin Julito [facility] 01-13-2022 11:00-0400 Mean blood pressure 94 mm[Hg] Crispin Julito [facility] 01-13-2022 11:00-0400 Respiratory rate 14 /min Crispin Julito [facility] 01-13-2022 11:00-0400 Systolic blood pressure 127 mm[Hg] Crispin Vila [facility] 01-13-2022 10:51-0400 Respiratory rate 22 /min Crispin Vila [facility] 01-13-2022 10:13-0400 Heart rate 84 /min Crisipn Vila [facility] 01-13-2022 09:32-0400 Body temperature 98.06 [degF] Lico Gudimella [facility] 01-13-2022 09:32-0400 Respiratory rate 22 /min Lico Gudimella [facility] 01-13-2022 09:23-0400 Diastolic blood pressure 84 mm[Hg] Lico Gudimella [facility] 01-13-2022 09:23-0400 Heart rate 80 /min Lico Gudimella [facility] 01-13-2022 09:23-0400 Mean blood pressure 100 mm[Hg] Lico Gudimella [facility] 01-13-2022 09:23-0400 SaO2% (BldA) [Mass fraction] 96 % Lico Gudimella [facility] 01-13-2022 09:23-0400 Systolic blood pressure 132 mm[Hg] Lico Gudimella [facility] 10-01-2021 17:00-0400 Diastolic blood pressure 78 mm[Hg] Aide BALL [facility] 10-01-2021 17:00-0400 Mean blood pressure 93 mm[Hg] Aide QUINN [facility] 10-01-2021 17:00-0400 Systolic blood pressure 122 mm[Hg] Aide QUINN [facility] 10-01-2021 16:11-0400 Blood Pressure Location Aide QUINN [facility] 10-01-2021 16:11-0400 Diastolic blood pressure 98 mm[Hg] Aide QUINN [facility] 10-01-2021 16:11-0400 Heart rate 80 /min Aide QUINN [facility] 10-01-2021 16:11-0400 SaO2% (BldA) [Mass fraction] 95 % Aide QUINN [facility] 10-01-2021 16:11-0400 Systolic blood pressure 162 mm[Hg] Aide QUINN [facility] 09-29-2021 14:11-0400 Diastolic blood pressure 79 mm[Hg] Crispin Vila [facility] 09-29-2021 14:11-0400 Heart rate 79 /min Crispin Vila [facility] 09-29-2021 14:11-0400 Mean blood pressure 93 mm[Hg] Crispin Julito [facility] 09-29-2021 14:11-0400 Respiratory rate 20 /min Crispin Julito [facility] 09-29-2021 14:11-0400 SaO2% (BldA) [Mass fraction] 92 % Crispin Julito [facility] 09-29-2021 14:11-0400 Systolic blood pressure 120 mm[Hg] Crispin Julito [facility] 09-29-2021 13:03-0400 Diastolic blood pressure 81 mm[Hg] Crispin Julito [facility] 09-29-2021 13:03-0400 Heart rate 71 /min Crispin Julito [facility] 09-29-2021 13:03-0400 Respiratory rate 20 /min Crispin Julito [facility] 09-29-2021 13:03-0400 SaO2% (BldA) [Mass fraction] 93 % Crispin Vila [facility] 09-29-2021 13:03-0400 Systolic blood pressure 135 mm[Hg] Crispin Julito [facility] 09-29-2021 12:13-0400 Body temperature 98.24 [degF] Crispin Julito [facility] 09-29-2021 12:13-0400 Diastolic blood pressure 90 mm[Hg] Crispin Julito [facility] 09-29-2021 12:13-0400 Heart rate 112 /min Crispin Julito [facility] 09-29-2021 12:13-0400 Respiratory rate 24 /min Crispin Julito [facility] 09-29-2021 12:13-0400 Systolic blood pressure 175 mm[Hg] Crispin Vila [facility] 07-30-2021 10:18-0400 Blood Pressure Location Nathan Henry [facility] 07-30-2021 10:18-0400 Diastolic blood pressure 60 mm[Hg] Nathan Henry [facility] 07-30-2021 10:18-0400 Heart rate 83 /min Nathan Henry [facility] 07-30-2021 10:18-0400 SaO2% (BldA) [Mass fraction] 96 % Nathan Henry [facility] 07-30-2021 10:18-0400 Systolic blood pressure 118 mm[Hg] Nathan Henry [facility] 07-12-2021 11:01-0400 Blood Pressure Location Reyes GARY [facility] 07-12-2021 11:01-0400 Diastolic blood pressure 82 mm[Hg] Reyes GARY [facility] 07-12-2021 11:01-0400 Heart rate 68 /min Reyes VEGA [facility] 07-12-2021 11:01-0400 Respiratory rate 16 /min Reyes VEGA [facility] 07-12-2021 11:01-0400 Systolic blood pressure 128 mm[Hg] Reyes VEGA [facility] 11-04-2020 08:07-0400 Body height 168.91 cm Aide Ball Work Phone: [facility] [place] Work Phone: 11-04-2020 08:07-0400 Body mass index (BMI) [Ratio] 31.32 kg/m2 Aide Ball Work Phone: [facility] [place] Work Phone: 11-04-2020 08:07-0400 Body surface area Derived from formula 2 m2 Aide Ball Work Phone: [facility] [place] Work Phone: 11-04-2020 08:07-0400 Body weight 89.36 kg Aide Ball Work Phone: [facility] [place] Work Phone: Functional Status Date Assessment Result Facility 07-31-2023 Functional Status N/A [facility] 07-17-2023 Functional Status N/A [facility] 07-04-2023 Functional Status N/A [facility] 05-22-2023 Functional Status N/A [facility] 03-31-2023 Functional Status N/A [facility] 01-09-2023 Functional Status N/A [facility] 11-04-2022 Functional Status N/A [facility] 09-16-2022 Functional Status N/A [facility] 09-05-2022 Functional Status N/A [facility] 08-12-2022 Functional Status N/A [facility] 07-22-2022 Functional Status N/A [facility] 07-15-2022 Functional Status N/A [facility] 07-11-2022 Functional Status No [facility] 07-04-2022 Functional Status N/A [facility] 06-06-2022 Functional Status N/A [facility] 05-30-2022 Functional Status N/A [facility] 05-25-2022 Functional Status No [facility] 05-16-2022 Functional Status N/A [facility] 04-19-2022 Functional Status N/A [facility] 04-13-2022 Functional Status N/A [facility] 03-21-2022 Functional Status No [facility] 03-16-2022 Functional Status N/A [facility] 03-16-2022 Functional Status N/A [facility] 02-28-2022 Functional Status N/A [facility] 01-13-2022 Functional Status N/A [facility] 10-01-2021 Functional Status N/A [facility] 09-29-2021 Functional Status N/A [facility] 09-21-2021 Functional Status Telehealth Patient [facility] [place] Clinical Notes 03-24-2006 to 07-31-2023 Note Date & Type Note Facility 07-31-2023 Hospital Discharg e instructions Patient Education 07/31/2023 15:29:39 Antibiotic Medicine, Adult Antibiotic Medicine, Adult Antibiotic medicines are used to treat infections caused by bacteria, such as strep throat and urinary tract infection (UTI). Antibiotic medicines will not work for colds, the flu (influenza), or other illnesses caused by viruses. These medicines work by killing the bacteria that are making you sick. Antibiotics can also have serious side effects. It is important that you take antibiotic medicines safely and only when needed. When do I need to take antibiotics? You may need antibiotics for: UTI. Strep throat. Bacterial sinusitis. Meningitis. This infection affects the spinal cord and brain. Serious lung infection. You may start antibiotics while your health care provider waits for your results from any tests for possible infection. Tests may include a culture of your throat, urine, blood, or mucus. Your health care provider may change or stop your antibiotic depending on your test results. When are antibiotics not needed? You do not need antibiotics for most common illnesses. These illnesses may be caused by a virus, not by bacteria. You do not need antibiotics for: The common cold. Influenza. Sore throat. Discolored mucus. Bronchitis. Antibiotics are not always needed for all infections caused by bacteria. Many of these infections clear up without antibiotic treatment. Do not ask for or take antibiotics when they are not necessary. How long should I take my antibiotic? You must take the entire prescription. Continue to take your antibiotic for as long as told by your health care provider. Do not stop taking it even if you start to feel better. If you stop taking it too soon: You may start to feel sick again. Your infection may become harder to treat. Each course of antibiotics needs a different amount of time to work. Some antibiotic courses last only a few days. Some last about a week to 10 days. In some cases, you may need to take antibiotics for a few weeks to completely treat your infection. What if I miss a dose? Try not to miss any doses of medicine. If you miss a dose, call your health care provider or pharmacist for advice. Sometimes it is okay to take the missed dose as soon as possible. Do not take double or extra doses. What are the risks of taking antibiotics? Antibiotics can cause: Allergic reactions. Nausea. Yeast infections. Liver problems. Antibiotics can also cause an infection called Clostridioides difficile (C. difficile or C. diff), which causes severe diarrhea. This infection happens when the antibiotics kill the healthy bacteria in your intestines. This allows C. diff to grow. C. diff needs to be treated right away. Let your health care provider know if: You develop diarrhea while taking an antibiotic. You develop diarrhea after you stop taking an antibiotic. C. diff infection can start weeks after stopping the antibiotic. Taking an antibiotic also puts you at risk for getting sick in the future with bacteria that do not respond to medicine (antibiotic-resistant infection). Antibiotics can cause bacteria to change so that if the antibiotic is taken again, the medicine cannot kill the bacteria. These infections can be more serious and, in some cases, life-threatening. Do antibiotics affect control? control pills may not work while you are on antibiotics. If you are taking control pills, continue taking them as usual and use a second form of control, such as a condom, to avoid unwanted . Continue using the second form of control until your health care provider says you can stop. What else should I know about taking antibiotics? It is important for you to take antibiotics exactly as told. Make sure to: Take the correct amount of medicine at the same time each day. Ask your health care provider: ?How long to wait between doses. ?If your antibiotic should be taken with food. ?If there are any foods, drinks, or medicines that you should avoid while taking your antibiotics. ?If there are any side effects you should be aware of. Use only the antibiotics prescribed for you by your health care provider. Do not use antibiotics prescribed for someone else. Drink a large glass of water when taking your antibiotics. Drink enough fluid to keep your urine pale yellow. Ask your pharmacist for a syringe, cup, or spoon that properly measures your antibiotics. Throw away any leftover medicine. Follow these instructions at home: Take khil-wvw-gyfnzxx and prescription medicines as told by your health care provider. Return to your normal activities as told by your health care provider. Ask your health care provider what activities are safe for you. Keep all follow-up visits as told by your health care provider. This is important. Contact a health care provider if: Your symptoms get worse. You have new joint pain or muscle aches that begin after starting your antibiotic. You have side effects from your antibiotic, such as: ?Stomach pain. ?Diarrhea. ?Nausea. ?White patches in your mouth or throat. Get help right away if: You have signs of a severe allergic reaction to antibiotics. If you have any of these signs, stop taking the antibiotic right away. Signs may include: ?Hives. These are raised, itchy, red bumps on your skin. ?Skin rash. ?Trouble breathing. ?Noisy breathing (wheezing). ?Swelling anywhere on your body. ?Feeling dizzy. ?Vomiting. You have signs of liver problems, such as: ?Dark or blood-colored urine. ?Yellow color to your skin. ?Bruising or bleeding easily. You have severe diarrhea, and you have cramps in your abdomen. You have a severe headache. These symptoms may represent a serious problem that is an emergency. Do not wait to see if the symptoms will go away. Get medical help right away. Call your local emergency services (911 in the [place] Do not drive yourself to the hospital. Summary Antibiotic medicines are used to treat infections caused by bacteria. It is important that you take antibiotic medicines safely and only when needed. Your health care provider may change or stop your antibiotic depending on your results from certain tests. Finish all antibiotic medicine even when you start to feel better. This information is not intended to replace advice given to you by your health care provider. Make sure you discuss any questions you have with your health care provider. Document Revised: 04/13/2020 Document Reviewed: 12/17/2019 [employer] Patient Education 2022 [employer]. Follow Up Care 07/27/2023 14:34:48 With:SAJI JOHNSON, PRESTON Schwab, URL Address: [address] [place] [address]. [place] [address] Business (1) When: only if needed [facility] 07-17-2023 Evaluation + Plan note Extrac gaurang from: Title:Pain Managment Follow up Author:Marilu aSunders Date:07/17/23 Impression and Plan Patient is a 78-year-old female with a past medical history significant for sacroiliitis and lumbar neuritis. Recent right-sided sacroiliac joint injection done on 07/04/2023 gave her 100% relief. Previous epidural also gave her relief of her radicular symptoms and at this time, she does not have any pain. She does not have any complaints or does not have any concerns. She does not require anything from our services. She is feeling well and doing well. She will call us should she require repeat injection or require anything from our services in the interim. LILI score: 0%. Future Appointments Appointment Date:01/15/2024 03:30:00 PM Scheduled Provider: Location:[facility] Appointment Type:FM Medicare Wellness Subsequent [facility]04-23-2024 Note [id number] Evaluation + Plan noteExtracted from: Title:FUV Author:Crow Gaona MD Date :05/22/23 Impression and Plan 77-year-old female with a history of sacroiliitis and sacroiliac joint dysfunction with recurrence of those symptoms. Previous sacroiliac joint injection on the right has been very helpful and provided the patient well over 50% relief for over 6 months. I recommend going ahead with repeating the procedure considering current appropriate conservative care has not provided adequate relief including ongoing physical therapy at [place]. Risk, benefits, and alternatives were reviewed with the patient. She wishes to proceed with a sacroiliac joint injection. This will be done for therapeutic purposes. Follow-up 2 weeks after the injection to assess response. We can consider transforaminal epidural steroid injections in the future if the radicular symptoms become more of a problem for the patient. Patient agrees with plan of care. Future Appointments Appointment Date:06/27/2023 11:00:00 AM Scheduled Provider:Dakotah Gallardo DO Location:[facility] Appointment Type: Procedure Appointment Date:01/15/2024 03:30:00 PM Scheduled Provider: Location:[facility] Appointment Type:FM Medicare Wellness Subsequent [facility]06-26-2023 Evaluation + Plan noteExtracted from: Title:Pain Managment Follow up Author:Marilu Saunders Date:09/05/22 Impression and Plan Patient is a 77-year-old female with a past medical history significant for lumbar neuritis and right lower extremity pain. Recent right-sided L4-5 and L5-S1 transforaminal epidural steroid injection done on 07/23/2022 has given her 90% relief. Unfortunate, she is still having pain in certain areas of her right lower extremity. It is in the right scott and into the right ankle and into the foot. Nothing in the knee. She states that this is very bothersome. This is affecting her ambulatory status. Patient states if she sits or lays down she feels better. If she is bearing weight she does not have relief in the right lower extremity in the aforementioned areas. She wonders about getting some x-rays. She really wonders if she hurt herself in the fall and may be did something to her lower extremity. I would recommend obtaining some x-rays including the right knee, right tib/fib, and right ankle. I would also recommend a bilateral lower extremity EMG to assess for any peripheral nerve entrapment. She is going to follow-up after the above-mentioned testing. Call the clinic sooner if necessary. LILI score: 32% Future Appointments Appointment Date:09/16/2022 09:40:00 AM Scheduled Provider:Dakotah Gallardo DO Location:[facility] Appointment Type:FM Open Appointment Date:09/21/2022 10:15:00 AM Scheduled Provider:Reyes VEGA MD Location:[facility] Appointment Type:URO Office Visit Appointment Date:10/24/2022 01:00:00 PM Scheduled Provider: [facility]:EMG Bilateral Lower Extremity [facility]06-13-2023 Note [id number]:[id number] 07-22-2022 Evaluation + Plan noteExtracted from: Title:Pain Managment Follow up Author:Marilu Saunders Date:07/22/22 Impression and Plan Patient is a 77-year-old female with a past medical history significant for lumbar spondylolisthesis, lumbar neuritis, lumbar degenerative disease and sacroiliitis. She is having right lower back pain with right buttock pain and right radiating leg pain. This is affecting her ambulatory status. This is affecting her quality of life and activities of daily. Is affecting her ability to get comfortable and affecting her ability to do the things she wants to do. She states that every aspect of her life is diminished because of this. She states that she is miserable. We reviewed the MRI. I recommended to patient a right-sided L4-5 and L5-S1 transforaminal epidural steroid injection for both diagnostic and therapeutic purposes. Procedure was discussed. Risks and benefits were discussed. Patient is agreeable. Questions and concerns from her son were all answered and discussed at length. At this time she is going to follow-up 2 weeks after the injection for reevaluation. Call the clinic sooner if necessary. We did discuss possibly referring her to a surgeon but at this time she states that this is not something she wants to do. She has no interest in this. LILI score: 87% Future Appointments Appointment Date:08/12/2022 09:40:00 AM Scheduled Provider:Dakotah Gallardo DO Location:[facility] Appointment Type:FM Procedure Appointment Date:09/21/2022 10:15:00 AM Scheduled Provider:Reyes VEGA MD Location:[facility] Appointment Type:URO Office Visit [facility]04-24-2023 Evaluation + Plan noteExtracted from: Title:Pain Managment Follow up Author:Marilu Saunders Date:07/04/22 Impression and Plan Patient is a 77-year-old female with a past medical history significant for lumbar spondylolisthesis, lumbar neuritis, and sacroiliitis. Recent right-sided sacroiliac joint injection gave her significant but only short-term relief. Upon further discussing her symptoms she has a lot of radicular symptoms. We reviewed her previous x-ray. I suspect some form of neural compression. Unfortunately, conservative treatments have not gotten her relief. Recent right- sided sacroiliac joint injection did not give her relief. Based on her pain pattern, her x-ray findings, and her failure to get any significant relief with most recent injection I suspect some neural compression. I would like to obtain a lumbar MRI for possible other injection options versus surgical consultation depend on the results. Patient is agreeable. She will follow-up after the x-ray and MRI scan for reevaluation and discussion of options. LILI score: 70 Future Appointments Appointment Date:07/11/2022 01:45:00 PM Scheduled Provider: Location:[facility] Appointment Type:Urology FT Appointment Date:07/15/2022 10:40:00 AM Scheduled Provider:Dakotah Gallardo DO Location:[facility] Appointment Type:FM Open Appointment Date:09/21/2022 10:15:00 AM Scheduled Provider:Reyes VEGA MD Location:[facility] Appointment Type:URO Office Visit [facility]03-06-2023 Evaluation + Plan noteExtracted from: Title:Pain Managment Follow up Author:Marilu Saunders Date:05/16/22 Impression and Plan Patient is a 76-year-old female with a past medical history significant for sacroiliitis and chronic pain. Previous right-sided sacroiliac joint injection gave over a year and a half of very significant relief. She states over 80% relief for a long period of time. She was better able to do things. Her quality of life and activities of daily are both significantly improved. Unfortunately, her pain returned about 6 months ago and has been gradually getting worse up until the point where it became unbearable just recently. Since she did well with the previous injection I recommended repeating the right-sided sacroiliac joint injection for both diagnostic and therapeutic purposes. Procedure was discussed. Risks and benefits were discussed. Patient is agreeable. She will follow-up 2 weeks after the injection for reevaluation. Call the clinic sooner if necessary. LILI score: 29 Future Appointments Appointment Date:05/25/2022 10:15:00 AM Scheduled Provider:Floresita Clinton MD [facility] Type:Pulmonary Follow Up () Appointment Date:05/30/2022 04:00:00 PM Scheduled Provider:Dakotah Gallardo DO Location:[facility] Appointment Type:FM Open Appointment Date:05/30/2022 08:15:00 PM Scheduled Provider: [facility] Type:SOCIAL SERVICE DIRECTOR Sleep Study w/C-PAP () Appointment Date:09/21/2022 10:15:00 AM Scheduled Provider:Reyes VEGA MD Location:[facility] Appointment Type:URO Office Visit [facility]02-01-2023 Hospital Discharge instructions Follow Up Care 04/13/2022 11:42:42 With:Reyes VEGA MD, URL Address: [address] [place] [id number]- When: Unknown [facility] 02-01-2023 Hospital Discharge instructions Patient Education 04/13/2022 11:29:21 Overactive Bladder, Adult Overactive Bladder, Adult Overactive bladder refers to a condition in which a person has a sudden need to pass urine. The person may leak urine if he or she cannot get to the bathroom fast enough (urinary incontinence). A person with this condition may also wake up several times in the night to go to the bathroom. Overactive bladder is associated with poor nerve signals between your bladder and your brain. Your bladder may get the signal to empty before it is full. You may also have very sensitive muscles thatmake your bladder squeeze too soon. These symptoms might interfere with daily work or social activities. What are the causes? This condition may be associated with or caused by: Urinary tract infection. Infection of nearby tissues, such as the prostate. Prostate enlargement. Surgery on the uterus or urethra. Bladder stones, inflammation, or tumors. Drinking too much caffeine or alcohol. Certain medicines, especially medicines that get rid of extra fluid in the body (diuretics). Muscle or nerve weakness, especially from: ?A spinal cord injury. ?Stroke. ?Multiple sclerosis. ?Parkinson's disease. Diabetes. Constipation. What increases the risk? You may be at greater risk for overactive bladder if you: Are an older adult. Smoke. Are going through menopause. Have prostate problems. Have a neurological disease, such as stroke, dementia, Parkinson's disease, or multiple sclerosis (MS). Eat or drink things that irritate the bladder. These include alcohol, spicy food, and caffeine. Are overweight or obese. What are the signs or symptoms? Symptoms of this condition include: Sudden, strong urge to urinate. Leaking urine. Urinating 8 or more times a day. Waking up to urinate 2 or more times a night. How is this diagnosed? Your health care provider may suspect overactive bladder based on your symptoms. He or she will diagnose this condition by: A physical exam and medical history. Blood or urine tests. You might need bladder or urine tests to help determine what is causing your overactive bladder. You might also need to see a health care provider who specializes in urinary tract problems (urologist). How is this treated? Treatment for overactive bladder depends on the cause of your condition and whether it is mild or severe. You can also make lifestyle changes at home. Options include: Bladder training. This may include: ?Learning to control the urge to urinate by following a schedule that directs you to urinate at regular intervals (timed voiding). ?Doing Kegel exercises to strengthen your pelvic floor muscles, which support your bladder. Toning these muscles can help you control urination, even if your bladder muscles are overactive. Special devices. This may include: ?Biofeedback, which uses sensors to help you become aware of your body's signals. ?Electrical stimulation, which uses electrodes placed inside the body (implanted) or outside the body. These electrodes send gentle pulses of electricity to strengthen the nerves or muscles that control the bladder. ?Women may use a plastic device that fits into the vagina and supports the bladder (pessary). Medicines. ?Antibiotics to treat bladder infection. ?Antispasmodics to stop the bladder from releasing urine at the wrong time. ?Tricyclic antidepressants to relax bladder muscles. ?Injections of botulinum toxin type A directly into the bladder tissue to relax bladder muscles. Lifestyle changes. This may include: ?Weight loss. Talk to your health care provider about weight loss methods that would work best for you. ?Diet changes. This may include reducing how much alcohol and caffeine you consume, or drinking fluids at different times of the day. ?Not smoking. Do not use any products that contain nicotine or tobacco, such as cigarettes and e-cigarettes. If you need help quitting, ask your health care provider. Surgery. ?A device may be implanted to help manage the nerve signals that control urination. ?An electrode may be implanted to stimulate electrical signals in the bladder. ?A procedure may be done to change the shape of the bladder. This is done only in very severe cases. Follow these instructions at home: Lifestyle Make any diet or lifestyle changes that are recommended by your health care provider. These may include: ?Drinking less fluid or drinking fluids at different times of the day. ?Cutting down on caffeine or alcohol. ?Doing Kegel exercises. ?Losing weight if needed. ?Eating a healthy and balanced diet to prevent constipation. This may include: ?Eating foods that are high in fiber, such as fresh fruits and vegetables, whole grains, and beans. ?Limiting foods that are high in fat and processed sugars, such as fried and sweet foods. General instructions Take xnml-wuw-nxdqkrs and prescription medicines only as told by your health care provider. If you were prescribed an antibiotic medicine, take it as told by your health care provider. Do notstop taking the antibiotic even if you start to feel better. Use any implants or pessary as told by your health care provider. If needed, wear pads to absorb urine leakage. Keep a journal or log to track how much and when you drink and when you feel the need to urinate. This will help your health care provider monitor your condition. Keep all follow-up visits as told by your health care provider. This is important. Contact a health care provider if: You have a fever. Your symptoms do not get better with treatment. Your pain and discomfort get worse. You have more frequent urges to urinate. Get help right away if: You are not able to control your bladder. Summary Overactive bladder refers to a condition in which a person has a sudden need to pass urine. Several conditions may lead to an overactive bladder. Treatment for overactive bladder depends on the cause and severity of your condition. Follow your health care provider's instructions about lifestyle changes, doing Kegel exercises, keeping a journal, and taking medicines. This information is not intended to replace advice given to you by your health care provider. Make sure you discuss any questions you have with your health care provider. Document Released: 12/24/2009 Document Revised: 06/20/2019 Document Reviewed: 03/15/2018 [employer] Patient Education 2020 [employer]. Follow Up Care 03/28/2022 14:08:35 With:GARY BANSAL, Reyes Sandoval, URL Address: [address] [place] [address]- When: Unknown [facility] 01-16-2023 Hospital Discharge instructions Patient Education 03/28/2022 13:47:33 [facility] - Cystoscopy with Botox Injection Discharge Instructions (Custom) Cystoscopy with Botox injection Voiding after the procedure: there may be some pain, burning, urgency, frequency and blood tinged urine following the procedure. These symptoms usually resolve within 2-5 days. Drink the amount of fluid it takes to keep the urine pink to yellow or clear in color. Drinking enough water and fluids will help to ease any discomfort after your procedure. It may take a few days to a week to notice a gradual improvement in the overactive bladder symptoms. If you are having problems that seem out of the ordinary, please call. If unable to contact your physician and you feel it is an emergency, go to the nearest emergency room or call 911 Do not lift more than fifteen pounds for 1-2 days. If you see a lot of blood, you probably did too much. Diet you may resume your normal diet. Pain control You may take extra strength Tylenol or Motrin for discomfort. Call if you have a fever over 100 degrees. Follow Up Care 02/14/2022 11:04:13 With:Reyes VEGA Address: [address] [place] [id number] Business (1) When:2 to 4 weeks Comments:Call for followup appointment. At that office visit, we most likely will be checking for residual urine to be sure you are emptying the bladder. [facility]01-04-2023 Hospital Discharge instructions Patient Education 03/16/2022 11:04:39 Radicular Pain Radicular Pain Radicular pain is a type of pain that spreads from your back or neck along a spinal nerve. Spinal nerves are nerves that leave the spinal cord and go to the muscles. Radicular pain is sometimes called radiculopathy, radiculitis, or a pinched nerve. When you have this type of pain, you may also haveweakness, numbness, or tingling in the area of your body that is supplied by the nerve. The pain may feel sharp and burning. Depending on which spinal nerve is affected, the pain may occur in the: Neck area (cervical radicular pain). You may also feel pain, numbness, weakness, or tingling in thearms. Mid-spine area (thoracic radicular pain). You would feel this pain in the back and chest. This typeis rare. Lower back area (lumbar radicular pain). You would feel this pain as low back pain. You may feel pain, numbness, weakness, or tingling in the buttocks or legs. Sciatica is a type of lumbar radicular pain that shoots down the back of the leg. Radicular pain occurs when one of the spinal nerves becomes irritated or squeezed (compressed). It is often caused by something pushing on a spinal nerve, such as one of the bones of the spine (vertebrae) or one of the round cushions between vertebrae (intervertebral disks). This can result from: An injury. Wear and tear or aging of a disk. The growth of a bone spur that pushes on the nerve. Radicular pain often goes away when you follow instructions from your health care provider for relieving pain at home. Follow these instructions at home: Managing pain If directed, put ice on the affected area: ?Put ice in a plastic bag. ?Place a towel between your skin and the bag. ?Leave the ice on for 20 minutes, 2 3 times a day. If directed, apply heat to the affected area as often as told by your health care provider. Use theheat source that your health care provider recommends, such as a moist heat pack or a heating pad. ?Place a towel between your skin and the heat source. ?Leave the heat on for 20 30 minutes. ?Remove the heat if your skin turns bright red. This is especially important if you are unable to feel pain, heat, or cold. You may have a greater risk of getting burned. Activity Do not sit or rest in bed for long periods of time. Try to stay as active as possible. Ask your health care provider what type of exercise or activity is best for you. Avoid activities that make your pain worse, such as bending and lifting. Do not lift anything that is heavier than 10 lb (4.5 kg), or the limit that you are told, until your health care provider says that it is safe. Practice using proper technique when lifting items. Proper lifting technique involves bending your knees and rising up. Do strength and etstg-qi-lvavvh exercises only as told by your health care provider or physical therapist. General instructions Take neji-mka-ywyficn and prescription medicines only as told by your health care provider. Pay attention to any changes in your symptoms. Keep all follow-up visits as told by your health care provider. This is important. ?Your health care provider may send you to a physical therapist to help with this pain. Contact a health care provider if: Your pain and other symptoms get worse. Your pain medicine is not helping. Your pain has not improved after a few weeks of home care. You have a fever. Get help right away if: You have severe pain, weakness, or numbness. You have difficulty with bladder or bowel control. Summary Radicular pain is a type of pain that spreads from your back or neck along a spinal nerve. When you have radicular pain, you may also have weakness, numbness, or tingling in the area of yourbody that is supplied by the nerve. The pain may feel sharp or burning. Radicular pain may be treated with ice, heat, medicines, or physical therapy. This information is not intended to replace advice given to you by your health care provider. Make sure you discuss any questions you have with your health care provider. Document Released: 04/06/2005 Document Revised: 09/11/2018 Document Reviewed: 09/11/2018 [employer] Patient Education 2020 [employer]. Follow Up Care 02/28/2022 16:55:08 With:Paulina AGUAYO, GIOVANNY Borges, PED Address: [address] [place], [place] [address]phillip Hairston, [facility] [place] [address] When:1 month only if needed Comments:40 mins [facility] 11-03-2022 Hospital Discharge instructions Patient Education 01/13/2022 12:19:06 Chronic Obstructive Pulmonary Disease Exacerbation Chronic Obstructive Pulmonary Disease Exacerbation Chronic obstructive pulmonary disease (COPD) is a long-term (chronic) condition that affects the lungs. COPD is a general term that can be used to describe many different lung problems that cause lung swelling (inflammation) and limit airflow, including chronic bronchitis and emphysema. COPD exacerbations are episodes when breathing symptoms become much worse and require extra treatment. COPD exacerbations are usually caused by infections. Without treatment, COPD exacerbations can be severe and even life threatening. Frequent COPD exacerbations can cause further damage to the lungs. What are the causes? This condition may be caused by: Respiratory infections, including viral and bacterial infections. Exposure to smoke. Exposure to air pollution, chemical fumes, or dust. Things that give you an allergic reaction (allergens). Not taking your usual COPD medicines as directed. Underlying medical problems, such as congestive heart failure or infections not involving the lungs. In many cases, the cause (trigger) of this condition is not known. What increases the risk? The following factors may make you more likely to develop this condition: Smoking cigarettes. Old age. Frequent prior COPD exacerbations. What are the signs or symptoms? Symptoms of this condition include: Increased coughing. Increased production of mucus from your lungs (sputum). Increased wheezing. Increased shortness of breath. Rapid or labored breathing. Chest tightness. Less energy than usual. Sleep disruption from symptoms. Confusion or increased sleepiness. Often these symptoms happen or get worse even with the use of medicines. How is this diagnosed? This condition is diagnosed based on: Your medical history. A physical exam. You may also have tests, including: A chest X-ray. Blood tests. Lung (pulmonary) function tests. How is this treated? Treatment for this condition depends on the severity and cause of the symptoms. You may need to be admitted to a hospital for treatment. Some of the treatments commonly used to treat COPD exacerbations are: Antibiotic medicines. These may be used for severe exacerbations caused by a lung infection, such as pneumonia. Bronchodilators. These are inhaled medicines that expand the air passages and allow increased airflow. Steroid medicines. These act to reduce inflammation in the airways. They may be given with an inhaler, taken by mouth, or given through an IV tube inserted into one of your veins. Supplemental oxygen therapy. Airway clearing techniques, such as noninvasive ventilation (NIV) and positive expiratory pressure (PEP). These provide respiratory support through a mask or other noninvasive device. An example of this would be using a continuous positive airway pressure (CPAP) machine to improve delivery of oxygen into your lungs. Follow these instructions at home: Medicines Take lsna-pqi-eilnasg and prescription medicines only as told by your health care provider. It is important to use correct technique with inhaled medicines. If you were prescribed an antibiotic medicine or oral steroid, take it as told by your health care provider. Do not stop taking the medicine even if you start to feel better. Lifestyle Eat a healthy diet. Exercise regularly. Get plenty of sleep. Avoid exposure to all substances that irritate the airway, especially to tobacco smoke. Wash your hands often with soap and water to reduce the risk of infection. If soap and water are not available, use hand combatant swimmer. During flu season, avoid enclosed spaces that are crowded with people. General instructions Drink enough fluid to keep your urine clear or pale yellow (unless you have a medical condition that requires fluid restriction). Use a cool mist vaporizer. This humidifies the air and makes it easier for you to clear your chest when you cough. If you have a home nebulizer and oxygen, continue to use them as told by your health care provider. Keep all follow-up visits as told by your health care provider. This is important. How is this prevented? Stay up-to-date on pneumococcal and influenza (flu) vaccines. A flu shot is recommended every year to help prevent exacerbations. Do not use any products that contain nicotine or tobacco, such as cigarettes and e-cigarettes. Quitting smoking is very important in preventing COPD from getting worse and in preventing exacerbationsfrom happening as often. If you need help quitting, ask your health care provider. Follow all instructions for pulmonary rehabilitation after a recent exacerbation. This can help prevent future exacerbations. Work with your health care provider to develop and follow an action plan. This tells you what stepsto take when you experience certain symptoms. Contact a health care provider if: You have a worsening of your regular COPD symptoms. Get help right away if: You have worsening shortness of breath, even when resting. You have trouble talking. You have severe chest pain. You cough up blood. You have a fever. You have weakness, vomit repeatedly, or faint. You feel confused. You are not able to sleep because of your symptoms. You have trouble doing daily activities. Summary COPD exacerbations are episodes when breathing symptoms become much worse and require extra treatment above your normal treatment. Exacerbations can be severe and even life threatening. Frequent COPD exacerbations can cause further damage to your lungs. COPD exacerbations are usually triggered by infections such as the flu, colds, and even pneumonia. Treatment for this condition depends on the severity and cause of the symptoms. You may need to be admitted to a hospital for treatment. Quitting smoking is very important to prevent COPD from getting worse and to prevent exacerbations from happening as often. This information is not intended to replace advice given to you by your health care provider. Make sure you discuss any questions you have with your health care provider. Document Released: 12/25/2007 Document Revised: 02/09/2018 Document Reviewed: 04/03/2017 [employer] Patient Education 2020 [employer]. Follow Up Care 01/13/2022 10:08:17 With:Marlys Bhardwaj Address:Unknown When:01/16/2022 11:53:03 [facility]11-03-2022 Evaluation + Plan noteExtracted from: Title:ED Note Author:Pietro Ricketts PA-C te:01/13/22 COPD exacerbation (J44.1: Ch ronic obstructive pulmonary disease with (acute) exacerbation) Orders: albuterol, 2.5 mg, 3 mL, Soln-Inh, Inhalation, Once, Stop date 01/13/22 10:55:00 EDT, STAT, Start date 01/13/22 10:55:00 EDT albuterol, 2.5 mg, 3 mL, Soln-Inh, Inhalation, Once, Stop date 01/13/22 10:55:00 EDT, STAT, Start date 01/13/22 10:55:00 EDT albuterol-ipratropium, 3 mL, Soln-Inh, Inhalation, Once, Stop date 01/13/22 10:20:00 EDT, STAT, Start date 01/13/22 10:20:00 EDT doxycycline, 100 mg = 1 cap(s), Oral, BID, X 10 day(s), # 20 cap(s), Refills(s) 0, Pharmacy: [facility]/pharmacy #[id number], 168, cm, 01/13/22 10:18:00 EDT, Height/Length Dosing, 89.3, kg, 01/13/22 10:18:00 EDT, Weight Dosing methylPREDNISolone, 125 mg = 2 mL, Injection, IV Push, Once, Stop date 01/13/22 10:20:00 EDT, STAT, Start date 01/13/22 10:20:00 EDT, 01/13/22 10:20:00 EDT predniSONE, 60 mg = 3 tab(s), Oral, Daily, X 7 day(s), # 21 tab(s), Refills(s) 0, Pharmacy: [facility]/pharmacy #[id number], 168, cm, 01/13/22 10:18:00 EDT, Height/Length Dosing, 89.3, kg, 01/13/22 10:18:00 EDT, Weight Dosing Automated Diff B-Type Natriuretic Peptide Basic Metabolic Panel Blood Culture Charcoal Blood Culture Charcoal CBC w/ Auto Diff Continuous Pulse Oximetry ED Cardiac Monitoring eGFR Extra SST Tube Lactic Acid Oxygen Therapy PT & PTT Saline Lock Insert Troponin 0 Hr. XR Chest Single View Future Appointments Appointment Date:01/18/2022 09:40:00 AM Scheduled Provider:Dakotah Gallardo DO Location:[facility] Appointment Type: Open Appointment Date:02/14/2022 10:15:00 AM Scheduled Provider:Reyes VEGA MD Location:[facility] Appointment Type:URO Office Visit Diagnostic Tests Pending * Blood Culture Charcoal 01/13/22 * Blood Culture Charcoal 01/13/22 [facility]07-22-2022 Hospital Discharge instructions Patient Education 10/01/2021 11:55:39 Chronic Obstructive Pulmonary Disease Chronic Obstructive Pulmonary Disease Chronic obstructive pulmonary disease (COPD) is a long-term (chronic) condition that affects the lungs. COPD is a general term that can be used to describe many different lung problems that cause lung swelling (inflammation) and limit airflow, including chronic bronchitis and emphysema. If you haveCOPD, your lung function will probably never return to normal. In most cases, it gets worse over time. However, there are steps you can take to slow the progression of the disease and improve your quality of life. What are the causes? This condition may be caused by: Smoking. This is the most common cause. Certain genes passed down through families. What increases the risk? The following factors may make you more likely to develop this condition: Secondhand smoke from cigarettes, pipes, or cigars. Exposure to chemicals and other irritants such as fumes and dust in the work environment. Chronic lung conditions or infections. What are the signs or symptoms? Symptoms of this condition include: Shortness of breath, especially during physical activity. Chronic cough with a large amount of thick mucus. Sometimes the cough may not have any mucus (dry cough). Wheezing. Rapid breaths. Deng or bluish discoloration (cyanosis) of the skin, especially in your fingers, toes, or lips. Feeling tired (fatigue). Weight loss. Chest tightness. Frequent infections. Episodes when breathing symptoms become much worse (exacerbations). Swelling in the ankles, feet, or legs. This may occur in later stages of the disease. How is this diagnosed? This condition is diagnosed based on: Your medical history. A physical exam. You may also have tests, including: Lung (pulmonary) function tests. This may include a spirometry test, which measures your ability toexhale properly. Chest X-ray. CT scan. Blood tests. How is this treated? This condition may be treated with: Medicines. These may include inhaled rescue medicines to treat acute exacerbations as well as long-term, or maintenance, medicines to prevent flare- ups of COPD. ?Bronchodilators help treat COPD by dilating the airways to allow increased airflow and make your breathing more comfortable. ?Steroids can reduce airway inflammation and help prevent exacerbations. Smoking cessation. If you smoke, your health care provider may ask you to quit, and may also recommend therapy or replacement products to help you quit. Pulmonary rehabilitation. This may involve working with a team of health care providers and specialists, such as respiratory, occupational, and physical therapists. Exercise and physical activity. These are beneficial for nearly all people with COPD. Nutrition therapy to gain weight, if you are underweight. Oxygen. Supplemental oxygen therapy is only helpful if you have a low oxygen level in your blood (hypoxemia). Lung surgery or transplant. Palliative care. This is to help people with COPD feel comfortable when treatment is no longer working. Follow these instructions at home: Medicines Take ltag-ofr-qphcylj and prescription medicines (inhaled or pills) only as told by your health care provider. Talk to your health care provider before taking any cough or allergy medicines. You may need to avoid certain medicines that dry out your airways. Lifestyle If you are a smoker, the most important thing that you can do is to stop smoking. Do not use any products that contain nicotine or tobacco, such as cigarettes and e-cigarettes. If you need help quitting, ask your health care provider. Continuing to smoke will cause the disease to progress faster. Avoid exposure to things that irritate your lungs, such as smoke, chemicals, and fumes. Stay active, but balance activity with periods of rest. Exercise and physical activity will help you maintain your ability to do things you want to do. Learn and use relaxation techniques to manage stress and to control your breathing. Get the right amount of sleep and get quality sleep. Most adults need 7 or more hours per night. Eat healthy foods. Eating smaller, more frequent meals and resting before meals may help you maintain your strength. Controlled breathing Learn and use controlled breathing techniques as directed by your health care provider. Controlled breathing techniques include: Pursed lip breathing. Start by breathing in (inhaling) through your nose for 1 second. Then, purse your lips as if you were going to whistle and breathe out (exhale) through the pursed lips for 2 seconds. Diaphragmatic breathing. Start by putting one hand on your abdomen just above your waist. Inhale slowly through your nose. The hand on your abdomen should move out. Then purse your lips and exhale slowly. You should be able to feel the hand on your abdomen moving in as you exhale. Controlled coughing Learn and use controlled coughing to clear mucus from your lungs. Controlled coughing is a series of short, progressive coughs. The steps of controlled coughing are: 1.Lean your head slightly forward. 2.Breathe in deeply using diaphragmatic breathing. 3.Try to hold your breath for 3 seconds. 4.Keep your mouth slightly open while coughing twice. 5.Spit any mucus out into a tissue. 6.Rest and repeat the steps once or twice as needed. General instructions Make sure you receive all the vaccines that your health care provider recommends, especially the pneumococcal and influenza vaccines. Preventing infection and hospitalization is very important when you have COPD. Use oxygen therapy and pulmonary rehabilitation if directed to by your health care provider. If yourequire home oxygen therapy, ask your health care provider whether you should purchase a pulse oximeter to measure your oxygen level at home. Work with your health care provider to develop a COPD action plan. This will help you know what steps to take if your condition gets worse. Keep other chronic health conditions under control as told by your health care provider. Avoid extreme temperature and humidity changes. Avoid contact with people who have an illness that spreads from person to person (is contagious), such as viral infections or pneumonia. Keep all follow-up visits as told by your health care provider. This is important. Contact a health care provider if: You are coughing up more mucus than usual. There is a change in the color or thickness of your mucus. Your breathing is more labored than usual. Your breathing is faster than usual. You have difficulty sleeping. You need to use your rescue medicines or inhalers more often than expected. You have trouble doing routine activities such as getting dressed or walking around the house. Get help right away if: You have shortness of breath while you are resting. You have shortness of breath that prevents you from: ?Being able to talk. ?Performing your usual physical activities. You have chest pain lasting longer than 5 minutes. Your skin color is more blue (cyanotic) than usual. You measure low oxygen saturations for longer than 5 minutes with a pulse oximeter. You have a fever. You feel too tired to breathe normally. Summary Chronic obstructive pulmonary disease (COPD) is a long-term (chronic) condition that affects the lungs. Your lung function will probably never return to normal. In most cases, it gets worse over time. However, there are steps you can take to slow the progression of the disease and improve your quality of life. Treatment for COPD may include taking medicines, quitting smoking, pulmonary rehabilitation, and changes to diet and exercise. As the disease progresses, you may need oxygen therapy, a lung transplant, or palliative care. To help manage your condition, do not smoke, avoid exposure to things that irritate your lungs, stay up to date on all vaccines, and follow your health care provider's instructions for taking medicines. This information is not intended to replace advice given to you by your health care provider. Make sure you discuss any questions you have with your health care provider. Document Released: 12/07/2005 Document Revised: 02/09/2018 Document Reviewed: 04/03/2017 [employer] Patient Education 2020 [employer]. 10/01/2021 11:55:31 DASH Eating Plan DASH Eating Plan DASH stands for Dietary Approaches to Stop Hypertension. The DASH eating plan is a healthy eatingplan that has been shown to reduce high blood pressure (hypertension). It may also reduce your riskfor type 2 diabetes, heart disease, and stroke. The DASH eating plan may also help with weight loss. What are tips for following this plan? General guidelines Avoid eating more than 2,300 mg (milligrams) of salt (sodium) a day. If you have hypertension, you may need to reduce your sodium intake to 1,500 mg a day. Limit alcohol intake to no more than 1 drink a day for non women and 2 drinks a day for men. One drink equals 12 oz of beer, 5 oz of wine, or 1 oz of hard liquor. Work with your health care provider to maintain a healthy body weight or to lose weight. Ask what an ideal weight is for you. Get at least 30 minutes of exercise that causes your heart to beat faster (aerobic exercise) most days of the week. Activities may include walking, swimming, or biking. Work with your health care provider or diet and nutrition intern (dietitian) to adjust your eating plan to your individual calorie needs. Reading food labels Check food labels for the amount of sodium per serving. Choose foods with less than 5 percent of the Daily Value of sodium. Generally, foods with less than 300 mg of sodium per serving fit into this eating plan. To find whole grains, look for the word whole as the first word in the ingredient list. Shopping Buy products labeled as low-sodium or no salt added. Buy fresh foods. Avoid canned foods and premade or frozen meals. Cooking Avoid adding salt when cooking. Use salt-free seasonings or herbs instead of table salt or sea salt. Check with your health care provider or pharmacist before using salt substitutes. Do not cornell foods. Cook foods using healthy methods such as baking, boiling, grilling, and broiling instead. Cook with heart-healthy oils, such as olive, canola, soybean, or sunflower oil. Meal planning Eat a balanced diet that includes: ?5 or more servings of fruits and vegetables each day. At each meal, try to fill half of your platewith fruits and vegetables. ?Up to 6 8 servings of whole grains each day. ?Less than 6 oz of lean meat, poultry, or fish each day. A 3-oz serving of meat is about the same size as a deck of cards. One egg equals 1 oz. ?2 servings of low-fat dairy each day. ?A serving of nuts, seeds, or beans 5 times each week. ?Heart-healthy fats. Healthy fats called [place]-3 fatty acids are found in foods such as flaxseeds and coldwater fish, like sardines, salmon, and mackerel. Limit how much you eat of the following: ?Canned or prepackaged foods. ?Food that is high in trans fat, such as fried foods. ?Food that is high in saturated fat, such as fatty meat. ?Sweets, desserts, sugary drinks, and other foods with added sugar. ?Full-fat dairy products. Do not salt foods before eating. Try to eat at least 2 vegetarian meals each week. Eat more home-cooked food and less restaurant, buffet, and fast food. When eating at a restaurant, ask that your food be prepared with less salt or no salt, if possible. What foods are recommended? The items listed may not be a complete list. Talk with your dietitian about what dietary choices are best for you. Grains Whole-grain or whole-wheat bread. Whole-grain or whole-wheat pasta. Brown rice. Oatmeal. Quinoa. Bulgur. Whole-grain and low-sodium cereals. Haley bread. Low- fat, low-sodium crackers. Whole-wheat flour tortillas. Vegetables Fresh or frozen vegetables (raw, steamed, roasted, or grilled). Low-sodium or reduced-sodium tomatoand vegetable juice. Low-sodium or reduced-sodium tomato sauce and tomato paste. Low-sodium or reduced-sodium canned vegetables. Fruits All fresh, dried, or frozen fruit. Canned fruit in natural juice (without added sugar). Meat and other protein foods Skinless chicken or turkey. Ground chicken or turkey. Pork with fat trimmed off. Fish and seafood. Egg whites. Dried beans, peas, or lentils. Unsalted nuts, nut butters, and seeds. Unsalted canned beans. Lean cuts of beef with fat trimmed off. Low-sodium, lean deli meat. Dairy Low-fat (1%) or fat-free (skim) milk. Fat-free, low-fat, or reduced-fat cheeses. Nonfat, low-sodiumricotta or cottage cheese. Low-fat or nonfat yogurt. Low-fat, low-sodium cheese. Fats and oils Soft margarine without trans fats. Vegetable oil. Low-fat, reduced-fat, or light mayonnaise and salad dressings (reduced-sodium). Canola, safflower, olive, soybean, and sunflower oils. Avocado. Seasoning and other foods Herbs. Spices. Seasoning mixes without salt. Unsalted popcorn and pretzels. Fat- free sweets. What foods are not recommended? The items listed may not be a complete list. Talk with your dietitian about what dietary choices are best for you. Grains Baked goods made with fat, such as croissants, muffins, or some breads. Dry pasta or rice meal packs. Vegetables Creamed or fried vegetables. Vegetables in a cheese sauce. Regular canned vegetables (not low-sodium or reduced-sodium). Regular canned tomato sauce and paste (not low-sodium or reduced-sodium). Regular tomato and vegetable juice (not low-sodium or reduced-sodium). Pickles. Olives. Fruits Canned fruit in a light or heavy syrup. Fried fruit. Fruit in cream or butter sauce. Meat and other protein foods Fatty cuts of meat. Ribs. Fried meat. Mcdonnell. Sausage. Bologna and other processed lunch meats. Salami. Fatback. Hotdogs. Bratwurst. Salted nuts and seeds. Canned beans with added salt. Canned or smoked fish. Whole eggs or egg yolks. Chicken or turkey with skin. Dairy Whole or 2% milk, cream, and [id number]. Whole or full-fat cream cheese. Whole-fat or sweetened yogurt. Full-fat cheese. Nondairy creamers. Whipped toppings. Processed cheese and cheese spreads. Fats and oils Butter. Stick margarine. Lard. Shortening. Ghee. Mcdonnell fat. Tropical oils, such as coconut, palm kernel, or palm oil. Seasoning and other foods Salted popcorn and pretzels. Onion salt, garlic salt, seasoned salt, table salt, and sea salt. Worcestershire sauce. Tartar sauce. Barbecue sauce. Teriyaki sauce. Soy sauce, including reduced-sodium.Steak sauce. Canned and packaged gravies. Fish sauce. Oyster sauce. Cocktail sauce. Horseradish that you find on the shelf. Ketchup. Mustard. Meat flavorings and tenderizers. Bouillon cubes. Hot sauce and Tabasco sauce. Premade or packaged marinades. Premade or packaged taco seasonings. Relishes. Regular salad dressings. Where to find more information: National Heart, Lung, and Blood [place]: www.nhlbi.nih.gov [place] [employer]: www.heart.org Summary The DASH eating plan is a healthy eating plan that has been shown to reduce high blood pressure (hypertension). It may also reduce your risk for type 2 diabetes, heart disease, and stroke. With the DASH eating plan, you should limit salt (sodium) intake to 2,300 mg a day. If you have hypertension, you may need to reduce your sodium intake to 1,500 mg a day. When on the DASH eating plan, aim to eat more fresh fruits and vegetables, whole grains, lean proteins, low-fat dairy, and heart-healthy fats. Work with your health care provider or diet and nutrition intern (dietitian) to adjust your eating plan to your individual calorie needs. This information is not intended to replace advice given to you by your health care provider. Make sure you discuss any questions you have with your health care provider. Document Released: 02/16/2012 Document Revised: 02/09/2018 Document Reviewed: 02/20/2017 [employer] Patient Education 2020 [employer]. Follow Up Care 09/21/2021 12:09:17 With:QUINN BANSAL, GIOVANNY Gaming Address: When:Within 6 Month(s) [facility] 07-20-2022 Hospital Discharge instructions Patient Education 09/29/2021 14:10:12 Nonspecific Chest Pain, Adult Nonspecific Chest Pain, Adult Chest pain can be caused by many different conditions. It can be caused by a condition that is life-threatening and requires treatment right away. It can also be caused by something that is not life-threatening. If you have chest pain, it can be hard to know the difference, so it is important to get help right away to make sure that you do not have a serious condition. Some life-threatening causes of chest pain include: Heart attack. A tear in the body's main blood vessel (aortic dissection). Inflammation around your heart (pericarditis). A problem in the lungs, such as a blood clot (pulmonary embolism) or a collapsed lung (pneumothorax). Some non life-threatening causes of chest pain include: Heartburn. Anxiety or stress. Damage to the bones, muscles, and cartilage that make up your chest wall. Pneumonia or bronchitis. Shingles infection (varicella-zoster virus). Chest pain can feel like: Pain or discomfort on the surface of your chest or deep in your chest. Crushing, pressure, aching, or squeezing pain. Burning or tingling. Dull or sharp pain that is worse when you move, cough, or take a deep breath. Pain or discomfort that is also felt in your back, neck, jaw, shoulder, or arm, or pain that spreads to any of these areas. Your chest pain may come and go. It may also be constant. Your health care provider will do lab tests and other studies to find the cause of your pain. Treatment will depend on the cause of your chest pain. Follow these instructions at home: Medicines Take gfrj-scf-ibzczoi and prescription medicines only as told by your health care provider. If you were prescribed an antibiotic, take it as told by your health care provider. Do not stop taking the antibiotic even if you start to feel better. Lifestyle Rest as directed by your health care provider. Do not use any products that contain nicotine or tobacco, such as cigarettes and e-cigarettes. If you need help quitting, ask your health care provider. Do not drink alcohol. Make healthy lifestyle choices as recommended. These may include: ?Getting regular exercise. Ask your health care provider to suggest some activities that are safe for you. ?Eating a heart-healthy diet. This includes plenty of fresh fruits and vegetables, whole grains, low-fat (lean) protein, and low-fat dairy products. A dietitian can help you find healthy eating options. ?Maintaining a healthy weight. ?Managing any other health conditions you have, such as high blood pressure (hypertension) or diabetes. ?Reducing stress, such as with yoga or relaxation techniques. General instructions Pay attention to any changes in your symptoms. Tell your health care provider about them or any newsymptoms. Avoid any activities that cause chest pain. Keep all follow-up visits as told by your health care provider. This is important. This includes visits for any further testing if your chest pain does not go away. Contact a health care provider if: Your chest pain does not go away. You feel depressed. You have a fever. Get help right away if: Your chest pain gets worse. You have a cough that gets worse, or you cough up blood. You have severe pain in your abdomen. You faint. You have sudden, unexplained chest discomfort. You have sudden, unexplained discomfort in your arms, back, neck, or jaw. You have shortness of breath at any time. You suddenly start to sweat, or your skin gets clammy. You feel nausea or you vomit. You suddenly feel lightheaded or dizzy. You have severe weakness, or unexplained weakness or fatigue. Your heart begins to beat quickly, or it feels like it is skipping beats. These symptoms may represent a serious problem that is an emergency. Do not wait to see if the symptoms will go away. Get medical help right away. Call your local emergency services (911 in the [place] Do not drive yourself to the hospital. Summary Chest pain can be caused by a condition that is serious and requires urgent treatment. It may also be caused by something that is not life-threatening. If you have chest pain, it is very important to see your health care provider. Your health care provider may do lab tests and other studies to find the cause of your pain. Follow your health care provider's instructions on taking medicines, making lifestyle changes, and getting emergency treatment if symptoms become worse. Keep all follow-up visits as told by your health care provider. This includes visits for any further testing if your chest pain does not go away. This information is not intended to replace advice given to you by your health care provider. Make sure you discuss any questions you have with your health care provider. Document Released: 12/07/2005 Document Revised: 08/30/2018 Document Reviewed: 08/30/2018 [employer] Patient Education 2020 [employer]. Follow Up Care 09/29/2021 12:10:26 With:Drake Medina Address: [address] [place] [phone] Business (1) When:10/02/2021 14:09:45 Comments:Call after leaving the emergency department to arrange for follow- up.You may always return to [facility] for your care. There are no hard feelings for leaving AGAINST MEDICAL ADVICE. With:Aide BALL Address: [address] [place] [address] [address] [place] [address]- Business (1) When:10/02/2021 14:09:32 Comments:Call the office of your primary care doctor to arrange for follow-up within the above-stated timeframe. Follow-up with your primary care doctor about this ED visit. You should review your labs, imaging, and diagnoses from this ED visit with your primary care physician. If you were prescribed medications you should discuss possible side-effects and drug interactions with your pharmacist. Call 911 or go to the nearest Emergency Department if you develop any new or worsening symptoms.Seek immediate medical attention if you develop: worsening chest pain, new chest pain, nausea, vomiting, weakness, numbness, tingling, excessive sweating, shortness of breath, difficulty breathing, loss of motion in your arms or legs, or any new or worsening symptoms. [facility]07-20-2022 Evaluation + Plan noteExtracted from: Title:ED Note Author:Crispin Vila DOPhani Date: Chest pain (R07.9: Chest morgan n, unspecified) Left against medical advice (Z53.29: Procedure and treatment not carried out because of patient's decision for other reasons) Orders: Automated Diff Basic Metabolic Panel CBC w/ Auto Diff CT Abdomen/Pelvis w/o Contrast CT Chest w/o Contrast ECG 12 Lead Adult ED Cardiac Monitoring eGFR Extra SST Tube Hepatic Function Panel Lipase Level Oxygen Saturation Oxygen Therapy PT & PTT Saline Lock Insert Troponin 0 Hr. Troponin 3 Hr. Troponin 6 Hr. Troponin 9 Hr. Future Appointments Appointment Date:10/01/2021 04:00:00 PM Scheduled Provider:Aide BALL MD Location:[facility] Appointment Type: Open Appointment Date:10/15/2021 10:20:00 AM Scheduled Provider:Aide BALL MD Location:[facility] Appointment Type: Open Appointment Date:02/14/2022 10:15:00 AM Scheduled Provider:Reyes VEGA MD Location:[facility] Appointment Type:URO Office Visit Appointment Date:07/19/2022 08:00:00 AM Scheduled Provider: Location:[facility] Appointment Type: Medicare Wellness Subsequent Appointment Date:07/19/2022 09:00:00 AM Scheduled Provider:Aide BALL MD Location:[facility] Appointment Type:[facility]05-20-2022 Hospital Discharge instructions Patient Education 07/30/2021 10:53:22 Budget-Friendly Healthy Eating Budget-Friendly Healthy Eating There are many ways to save money at the grocery store and continue to eat healthy. You can be successful if you: Plan meals according to your budget. Make a grocery list and only purchase food according to your grocery list. Prepare food yourself. What are tips for following this plan? Reading food labels Compare food labels between brand name foods and the store brand. Often the nutritional value is the same, but the store brand is lower cost. Look for products that do not have added sugar, fat, or salt (sodium). These often cost the same but are healthier for you. Products may be labeled as: ?Sugar-free. ?Nonfat. ?Low-fat. ?Sodium-free. ?Low-sodium. Look for lean ground beef labeled as at least 92% lean and 8% fat. Shopping Buy only the items on your grocery list and go only to the areas of the store that have the items on your list. Use coupons only for foods and brands you normally buy. Avoid buying items you wouldn't normally buy simply because they are on sale. Check online and in newspapers for weekly deals. Buy healthy items from the bulk bins when available, such as herbs, spices, flour, pasta, nuts, anddried fruit. Buy fruits and vegetables that are in season. Prices are usually lower on in- season produce. Look at the unit sexton on the sexton tag. Use it to compare different brands and sizes to find out which item is the best deal. Choose healthy items that are often low-cost, such as carrots, potatoes, apples, bananas, and oranges. Dried or canned beans are a low-cost protein source. Buy in bulk and freeze extra food. Items you can buy in bulk include meats, fish, poultry, frozen fruits, and frozen vegetables. Avoid buying xsjff-wi-muv foods, such as pre-cut fruits and vegetables and pre-made salads. If possible, shop around to discover where you can find the best prices. Consider other retailers such as dollar stores, larger wholesale stores, local fruit and vegetable stands, and farmers markets. Do not shop when you are hungry. If you shop while hungry, it may be hard to stick to your list andbudget. Resist impulse buying. Use your grocery list as your official plan for the week. Buy a variety of vegetables and fruits by purchasing fresh, frozen, and canned items. Look at the top and bottom shelves for deals. Foods at eye level (eye level of an adult or child) are usually more expensive. Be efficient with your time when shopping. The more time you spend at the store, the more money youare likely to spend. To save money when choosing more expensive foods like meats and dairy: ?Choose cheaper cuts of meat, such as bone-in chicken thighs and drumsticks instead of skinless andboneless chicken. When you are ready to prepare the chicken, you can remove the skin yourself to make it healthier. ?Choose lean meats like chicken or turkey instead of beef. ?Choose canned seafood, such as tuna, salmon, or sardines. ?Buy eggs as a low-cost source of protein. ?Buy dried beans and peas, such as lentils, split peas, or kidney beans instead of meats. Dried beans and peas are a good alternative source of protein. ?Buy the larger tubs of yogurt instead of individual-sized containers. Choose water instead of sodas and other sweetened beverages. Avoid buying chips, cookies, and other junk food. These items are usually expensive and not healthy. Cooking Make extra food and freeze the extras in meal-sized containers or in individual portions for fast meals and snacks. Pre-cook on days when you have extra time to prepare meals in advance. You can keep these meals in the fridge or freezer and reheat for a quick meal. When you come home from the grocery store, wash, peel, and cut fruits and vegetables so they are ready to use and eat. This will help reduce food waste. Meal planning Do not eat out or get fast food. Prepare food at home. Make a grocery list and make sure to bring it with you to the store. If you have a smart phone, youcould use your phone to create your shopping list. Plan meals and snacks according to a grocery list and budget you create. Use leftovers in your meal plan for the week. Look for recipes where you can cook once and make enough food for two meals. Include budget-friendly meals like stews, casseroles, and stir-cornell dishes. Try some meatless meals or try no cook meals like salads. Make sure that half your plate is filled with fruits or vegetables. Choose from fresh, frozen, or canned fruits and vegetables. If eating canned, remember to rinse them before eating. This will remove any excess salt added for packaging. Summary Eating healthy on a budget is possible if you plan your meals according to your budget, purchase according to your budget and grocery list, and prepare food yourself. Tips for buying more food on a limited budget include buying generic brands, using coupons only forfoods you normally buy, and buying healthy items from the bulk bins when available. Tips for buying cheaper food to replace expensive food include choosing cheaper, lean cuts of meat,and buying dried beans and peas. This information is not intended to replace advice given to you by your health care provider. Make sure you discuss any questions you have with your health care provider. Document Released: 10/31/2014 Document Revised: 02/28/2018 Document Reviewed: 02/28/2018 [employer] Patient Education 2020 [employer]. 07/30/2021 10:53:17 Chronic Obstructive Pulmonary Disease Exacerbation Chronic Obstructive Pulmonary Disease Exacerbation Chronic obstructive pulmonary disease (COPD) is a long-term (chronic) condition that affects the lungs. COPD is a general term that can be used to describe many different lung problems that cause lung swelling (inflammation) and limit airflow, including chronic bronchitis and emphysema. COPD exacerbations are episodes when breathing symptoms become much worse and require extra treatment. COPD exacerbations are usually caused by infections. Without treatment, COPD exacerbations can be severe and even life threatening. Frequent COPD exacerbations can cause further damage to the lungs. What are the causes? This condition may be caused by: Respiratory infections, including viral and bacterial infections. Exposure to smoke. Exposure to air pollution, chemical fumes, or dust. Things that give you an allergic reaction (allergens). Not taking your usual COPD medicines as directed. Underlying medical problems, such as congestive heart failure or infections not involving the lungs. In many cases, the cause (trigger) of this condition is not known. What increases the risk? The following factors may make you more likely to develop this condition: Smoking cigarettes. Old age. Frequent prior COPD exacerbations. What are the signs or symptoms? Symptoms of this condition include: Increased coughing. Increased production of mucus from your lungs (sputum). Increased wheezing. Increased shortness of breath. Rapid or labored breathing. Chest tightness. Less energy than usual. Sleep disruption from symptoms. Confusion or increased sleepiness. Often these symptoms happen or get worse even with the use of medicines. How is this diagnosed? This condition is diagnosed based on: Your medical history. A physical exam. You may also have tests, including: A chest X-ray. Blood tests. Lung (pulmonary) function tests. How is this treated? Treatment for this condition depends on the severity and cause of the symptoms. You may need to be admitted to a hospital for treatment. Some of the treatments commonly used to treat COPD exacerbations are: Antibiotic medicines. These may be used for severe exacerbations caused by a lung infection, such as pneumonia. Bronchodilators. These are inhaled medicines that expand the air passages and allow increased airflow. Steroid medicines. These act to reduce inflammation in the airways. They may be given with an inhaler, taken by mouth, or given through an IV tube inserted into one of your veins. Supplemental oxygen therapy. Airway clearing techniques, such as noninvasive ventilation (NIV) and positive expiratory pressure (PEP). These provide respiratory support through a mask or other noninvasive device. An example of this would be using a continuous positive airway pressure (CPAP) machine to improve delivery of oxygen into your lungs. Follow these instructions at home: Medicines Take eruv-nze-jyfpqdk and prescription medicines only as told by your health care provider. It is important to use correct technique with inhaled medicines. If you were prescribed an antibiotic medicine or oral steroid, take it as told by your health care provider. Do not stop taking the medicine even if you start to feel better. Lifestyle Eat a healthy diet. Exercise regularly. Get plenty of sleep. Avoid exposure to all substances that irritate the airway, especially to tobacco smoke. Wash your hands often with soap and water to reduce the risk of infection. If soap and water are not available, use hand combatant swimmer. During flu season, avoid enclosed spaces that are crowded with people. General instructions Drink enough fluid to keep your urine clear or pale yellow (unless you have a medical condition that requires fluid restriction). Use a cool mist vaporizer. This humidifies the air and makes it easier for you to clear your chest when you cough. If you have a home nebulizer and oxygen, continue to use them as told by your health care provider. Keep all follow-up visits as told by your health care provider. This is important. How is this prevented? Stay up-to-date on pneumococcal and influenza (flu) vaccines. A flu shot is recommended every year to help prevent exacerbations. Do not use any products that contain nicotine or tobacco, such as cigarettes and e-cigarettes. Quitting smoking is very important in preventing COPD from getting worse and in preventing exacerbationsfrom happening as often. If you need help quitting, ask your health care provider. Follow all instructions for pulmonary rehabilitation after a recent exacerbation. This can help prevent future exacerbations. Work with your health care provider to develop and follow an action plan. This tells you what stepsto take when you experience certain symptoms. Contact a health care provider if: You have a worsening of your regular COPD symptoms. Get help right away if: You have worsening shortness of breath, even when resting. You have trouble talking. You have severe chest pain. You cough up blood. You have a fever. You have weakness, vomit repeatedly, or faint. You feel confused. You are not able to sleep because of your symptoms. You have trouble doing daily activities. Summary COPD exacerbations are episodes when breathing symptoms become much worse and require extra treatment above your normal treatment. Exacerbations can be severe and even life threatening. Frequent COPD exacerbations can cause further damage to your lungs. COPD exacerbations are usually triggered by infections such as the flu, colds, and even pneumonia. Treatment for this condition depends on the severity and cause of the symptoms. You may need to be admitted to a hospital for treatment. Quitting smoking is very important to prevent COPD from getting worse and to prevent exacerbations from happening as often. This information is not intended to replace advice given to you by your health care provider. Make sure you discuss any questions you have with your health care provider. Document Released: 12/25/2007 Document Revised: 02/09/2018 Document Reviewed: 04/03/2017 [employer] Patient Education 2019 [employer]. [facility] 05-02-2022 Hospital Discharge instructions Patient Education 07/12/2021 11:19:46 Overactive Bladder, Adult Overactive Bladder, Adult Overactive bladder refers to a condition in which a person has a sudden need to pass urine. The person may leak urine if he or she cannot get to the bathroom fast enough (urinary incontinence). A person with this condition may also wake up several times in the night to go to the bathroom. Overactive bladder is associated with poor nerve signals between your bladder and your brain. Your bladder may get the signal to empty before it is full. You may also have very sensitive muscles thatmake your bladder squeeze too soon. These symptoms might interfere with daily work or social activities. What are the causes? This condition may be associated with or caused by: Urinary tract infection. Infection of nearby tissues, such as the prostate. Prostate enlargement. Surgery on the uterus or urethra. Bladder stones, inflammation, or tumors. Drinking too much caffeine or alcohol. Certain medicines, especially medicines that get rid of extra fluid in the body (diuretics). Muscle or nerve weakness, especially from: ?A spinal cord injury. ?Stroke. ?Multiple sclerosis. ?Parkinson's disease. Diabetes. Constipation. What increases the risk? You may be at greater risk for overactive bladder if you: Are an older adult. Smoke. Are going through menopause. Have prostate problems. Have a neurological disease, such as stroke, dementia, Parkinson's disease, or multiple sclerosis (MS). Eat or drink things that irritate the bladder. These include alcohol, spicy food, and caffeine. Are overweight or obese. What are the signs or symptoms? Symptoms of this condition include: Sudden, strong urge to urinate. Leaking urine. Urinating 8 or more times a day. Waking up to urinate 2 or more times a night. How is this diagnosed? Your health care provider may suspect overactive bladder based on your symptoms. He or she will diagnose this condition by: A physical exam and medical history. Blood or urine tests. You might need bladder or urine tests to help determine what is causing your overactive bladder. You might also need to see a health care provider who specializes in urinary tract problems (urologist). How is this treated? Treatment for overactive bladder depends on the cause of your condition and whether it is mild or severe. You can also make lifestyle changes at home. Options include: Bladder training. This may include: ?Learning to control the urge to urinate by following a schedule that directs you to urinate at regular intervals (timed voiding). ?Doing Kegel exercises to strengthen your pelvic floor muscles, which support your bladder. Toning these muscles can help you control urination, even if your bladder muscles are overactive. Special devices. This may include: ?Biofeedback, which uses sensors to help you become aware of your body's signals. ?Electrical stimulation, which uses electrodes placed inside the body (implanted) or outside the body. These electrodes send gentle pulses of electricity to strengthen the nerves or muscles that control the bladder. ?Women may use a plastic device that fits into the vagina and supports the bladder (pessary). Medicines. ?Antibiotics to treat bladder infection. ?Antispasmodics to stop the bladder from releasing urine at the wrong time. ?Tricyclic antidepressants to relax bladder muscles. ?Injections of botulinum toxin type A directly into the bladder tissue to relax bladder muscles. Lifestyle changes. This may include: ?Weight loss. Talk to your health care provider about weight loss methods that would work best for you. ?Diet changes. This may include reducing how much alcohol and caffeine you consume, or drinking fluids at different times of the day. ?Not smoking. Do not use any products that contain nicotine or tobacco, such as cigarettes and e-cigarettes. If you need help quitting, ask your health care provider. Surgery. ?A device may be implanted to help manage the nerve signals that control urination. ?An electrode may be implanted to stimulate electrical signals in the bladder. ?A procedure may be done to change the shape of the bladder. This is done only in very severe cases. Follow these instructions at home: Lifestyle Make any diet or lifestyle changes that are recommended by your health care provider. These may include: ?Drinking less fluid or drinking fluids at different times of the day. ?Cutting down on caffeine or alcohol. ?Doing Kegel exercises. ?Losing weight if needed. ?Eating a healthy and balanced diet to prevent constipation. This may include: ?Eating foods that are high in fiber, such as fresh fruits and vegetables, whole grains, and beans. ?Limiting foods that are high in fat and processed sugars, such as fried and sweet foods. General instructions Take nill-wgf-bdachzg and prescription medicines only as told by your health care provider. If you were prescribed an antibiotic medicine, take it as told by your health care provider. Do notstop taking the antibiotic even if you start to feel better. Use any implants or pessary as told by your health care provider. If needed, wear pads to absorb urine leakage. Keep a journal or log to track how much and when you drink and when you feel the need to urinate. This will help your health care provider monitor your condition. Keep all follow-up visits as told by your health care provider. This is important. Contact a health care provider if: You have a fever. Your symptoms do not get better with treatment. Your pain and discomfort get worse. You have more frequent urges to urinate. Get help right away if: You are not able to control your bladder. Summary Overactive bladder refers to a condition in which a person has a sudden need to pass urine. Several conditions may lead to an overactive bladder. Treatment for overactive bladder depends on the cause and severity of your condition. Follow your health care provider's instructions about lifestyle changes, doing Kegel exercises, keeping a journal, and taking medicines. This information is not intended to replace advice given to you by your health care provider. Make sure you discuss any questions you have with your health care provider. Document Released: 12/24/2009 Document Revised: 06/20/2019 Document Reviewed: 03/15/2018 [employer] Patient Education 2020 [employer]. Follow Up Care 06/07/2021 14:12:14 With:Reyes VEGA MD, URL Address: [place] [id number]- When:02/11/2022 [facility] 01-12-2007 History of Present illness Narrative* 03/24/2006 11:59 PM EST 03-24-06 CTS consult Earnest Bermudez: Cervical fusion in 06/2005. After this, develops severe shortness of breath. 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 The other pulmonary veins are normal. Her PFTs are not bad, FEV1 of 68%. By cath PAPs 30/20mmHg, PCPW 15mmHg. When talking to her she has an abnormal breathing, the inspirations are short and very audible. I cannot convince myself relocating those pulmonary veins to the left atrium will cure her shortness of breath, the way she breaths I would also suggest bronchoscopy. I have asked for another pulmonary consult here, this must be something else. Possibly there is good reason to relocate the pulmonary veins also - I ask Dr. Langford to estimate the shunt fraction. The patient herself is also not convinced the heart issue explains her shortness of breath. Reconsideration after completed pulmonary evaluation. Earnest Adamssung [facility] note Future Appointments Appointment Date:07/12/2021 10:45:00 AM Scheduled Provider:Reyes VEGA MD Location:[facility] Appointment Type:URO Office Visit Appointment Date:07/13/2021 09:20:00 AM Scheduled Provider:Aide BALL MD Location:[facility] Appointment Type:FM Open Appointment Date:07/19/2022 08:00:00 AM Scheduled Provider: Location:[facility] Appointment Type:FM Medicare Wellness Subsequent Appointment Date:07/19/2022 09:00:00 AM Scheduled Provider:Aide BALL MD Location:[facility] Appointment Type: Open [facility] Evaluation + Plan note Future Appointments Appointment Date:10/15/2021 10:20:00 AM Scheduled Provider:Aide BALL MD Location:[facility] Appointment Type:FM Open Appointment Date:02/14/2022 10:15:00 AM Scheduled Provider:Reyes VEGA MD Location:[facility] Appointment Type:URO Office Visit Appointment Date:07/19/2022 08:00:00 AM Scheduled Provider: Location:[facility] Appointment Type: Medicare Wellness Subsequent Appointment Date:07/19/2022 09:00:00 AM Scheduled Provider:Aide BALL MD Location:[facility] Appointment Type: Open [facility] Evaluation + Plan note Future Appointments Appointment Date:10/01/2021 04:00:00 PM Scheduled Provider:Aide BALL MD Location:[facility] Appointment Type:FM Open Appointment Date:10/15/2021 10:20:00 AM Scheduled Provider:Aide BALL MD Location:[facility] Appointment Type:FM Open Appointment Date:02/14/2022 10:15:00 AM Scheduled Provider:Reyes VEGA MD Location:[facility] Appointment Type:URO Office Visit Appointment Date:07/19/2022 08:00:00 AM Scheduled Provider: Location:[facility] Appointment Type:FM Medicare Wellness Subsequent Appointment Date:07/19/2022 09:00:00 AM Scheduled Provider:Aide BALL MD Location:[facility] Appointment Type: Open [facility] Evaluation + Plan note Future Appointments Appointment Date:11/30/2021 08:40:00 AM Scheduled Provider:Dakotah Gallardo DO Location:[facility] Appointment Type:FM Open Appointment Date:02/14/2022 10:15:00 AM Scheduled Provider:Reyes VEGA MD Location:[facility] Appointment Type:URO Office Visit Appointment Date:07/19/2022 08:00:00 AM Scheduled Provider: Location:[facility] Appointment Type:FM Medicare Wellness Subsequent Appointment Date:07/19/2022 09:00:00 AM Scheduled Provider:Aide BALL MD Location:[facility] Appointment Type:FM Open [facility] Evaluation + Plan note Future Appointments Appointment Date:02/14/2022 10:15:00 AM Scheduled Provider:Reyes VEGA MD Location:[facility] Appointment Type:URO Office Visit [facility] Evaluation + Plan note Future Appointments Appointment Date:01/18/2022 09:40:00 AM Scheduled Provider:Dakotah Gallardo DO Location:[facility] Appointment Type:FM Open Appointment Date:02/14/2022 10:15:00 AM Scheduled Provider:Reyes VEGA MD Location:[facility] Appointment Type:URO Office Visit [facility] Evaluation + Plan note Future Appointments Appointment Date:03/16/2022 09:40:00 AM Scheduled Provider:Dakotah Gallardo DO Location:[facility] Appointment Type:FM Procedure Appointment Date:03/21/2022 08:15:00 AM Scheduled Provider: Location:[facility] Appointment Type:Urology CALL PAT FT Appointment Date:03/28/2022 02:00:00 PM Scheduled Provider: Location:[facility] Appointment Type:Urology FT [facility] Evaluation + Plan note Future Appointments Appointment Date:03/21/2022 08:15:00 AM Scheduled Provider: Location:[facility] Appointment Type:Urology CALL PAT FT Appointment Date:03/21/2022 01:15:00 PM Scheduled Provider:Floresita Clinton MD [facility] Type:Pulmonary New Patient (FT) Appointment Date:03/28/2022 02:00:00 PM Scheduled Provider: Location:[facility] Appointment Type:Urology FT Appointment Date:04/19/2022 10:20:00 AM Scheduled Provider:Dakotah Gallardo DO Location:[facility] Appointment Type:[facility] Evaluation + Plan note Future Appointments Appointment Date:03/28/2022 02:00:00 PM Scheduled Provider: Location:[facility] Appointment Type:Urology FT Appointment Date:04/19/2022 10:20:00 AM Scheduled Provider:Dakotah Gallardo DO Location[facility] App[facility]ments Appointment Date:03/28/2022 02:00:00 PM Scheduled Provider: Location:[facility] Appointment Type:Urology FT Appointment Date:04/19/2022 10:20:00 AM Scheduled Provider:Dakotah Gallardo DO Location:[facility] Appointment Type:[facility] Diagnostic Tests Pending * Urine Culture [facility] Future Appointments Appointment Date:04/04/2022 12:30:00 PM Scheduled Provider: [facility] Type:PUL Pulmonary Function Test (FT) Appointment Date:04/04/2022 01:30:00 PM Scheduled Provider: [facility] Type:PUL Six Minute Walk Test (FT) Appointment Date:04/13/2022 11:15:00 AM Scheduled Provider:Reyes VEGA MD Location:[facility] Appointment Type:URO Office Visit Appointment Date:04/19/2022 10:20:00 AM Scheduled Provider:Dakotah Gallardo DO Location:[facility] Future Appointments Appointment Date:04/11/2022 08:15:00 PM Scheduled Provider: [facility] App[facility] Type:SOCIAL SERVICE DIRECTOR Sleep Study PSG (FT) Appointment Date:04/13/2022 11:15:00 AM Scheduled Provider:Reyes VEGA MD Location:[facility] Appointment Type:URO Office Visit Appointment Date:04/19/2022 10:20:00 AM Scheduled Provider:Dakotah Gallardo DO Location:[facility] Appointment Type:FM Open [facility] Future Appointments Appointment Date:04/11/2022 08:15:00 PM Scheduled Provider: [facility] App[facility] Type:SOCIAL SERVICE DIRECTOR Sleep Study PSG (FT) Appointment Date:04/13/2022 11:15:00 AM Scheduled Provider:Reyes VEGA MD Location:[facility] Appointment Type:URO Office Visit Appointment Date:04/19/2022 10:20:00 AM Scheduled Provider:Dakotah Gallardo DO Location:[facility] Appointment Type:FM Open Appointment Date:05/02/2022 12:30:00 PM Scheduled Provider: [facility] Type:PUL Pulmonary Function Test (FT) Appointment Date:05/02/2022 01:30:00 PM Scheduled Provider: [facility] Type:PUL Six Minute Walk Test (FT) [facility] Evaluation + Plan note Future Appointments Appointment Date:04/13/2022 11:15:00 AM Scheduled Provider:Reyes VEGA MD Location:[facility] Appointment Type:URO Office Visit Appointment Date:04/19/2022 10:20:00 AM Scheduled Provider:Dakotah Gallardo DO Location:[facility] Appointment Type:FM Open Appointment Date:05/02/2022 12:30:00 PM Scheduled Provider: [facility] Type:PUL Pulmonary Function Test (FT) Appointment Date:05/02/2022 01:30:00 PM Scheduled Provider: Location[facility] Appointment Type:PUL Six Minute Walk Test (FT) [facility] Future Appointments Appointment Date:04/19/2022 10:20:00 AM Scheduled Provider:Dakotah Gallardo DO Location:[facility] Appointment Type:FM Open Appointment Date:05/02/2022 12:30:00 PM Scheduled Provider: [facility] Type:PUL Pulmonary Function Test (FT) Appointment Date:05/02/2022 01:30:00 PM Scheduled Provider: Location:.[facility] Appointment Type:PUL Six Minute Walk Test (FT) Appointment Date:09/21/2022 10:15:00 AM Scheduled Provider:Reyes VEGA MD Location:[facility] Appointment Type:URO Office Visit [facility] evaluation + Plan note Future Appointments Appointment Date:05/02/2022 12:30:00 PM Scheduled Provider: [facility] Type:PUL Pulmonary Function Test (FT) Appointment Date:05/02/2022 01:30:00 PM Scheduled Provider: [facility] Type:PUL Six Minute Walk Test (FT) Appointment Date:05/30/2022 04:00:00 PM Scheduled Provider:Dakotah Gallardo DO Location:[facility] Appointment Type:FM Open Appointment Date:09/21/2022 10:15:00 AM Scheduled Provider:Reyes VEGA MD Location:[facility] Appointment Type:URO Office Visit [facility] evaluation + Plan note Future Appointments Appointment Date:05/30/2022 10:40:00 AM Scheduled Provider:Dakotah Gallardo DO Location:[facility] Appointment Type:FM Open Appointment Date:05/30/2022 08:15:00 PM Scheduled Provider: Location:.[facility]_ Appointment Type:SOCIAL SERVICE DIRECTOR Sleep Study w/C-PAP (FT) Appointment Date:06/06/2022 03:00:00 PM Scheduled Provider: [facility] Type:Surgery FT Appointment Date:07/04/2022 01:30:00 PM Scheduled Provider:Marilu Cornell PA-C [facility] Type:Pain Management - Follow Up (FT) Appointment Date:09/21/2022 10:15:00 AM Scheduled Provider:Reyes VEGA MD Location:[facility] Appointment Type:URO Office Visit [facility] note Future Appointments Appointment Date:06/06/2022 03:00:00 PM Scheduled Provider: Location:[facility] Appointment Type:Surgery FT Appointment Date:07/04/2022 01:30:00 PM Scheduled Provider:Marilu Cornell PA-C [facility] Type:Pain Management - Follow Up (FT) Appointment Date:07/15/2022 10:40:00 AM Scheduled Provider:Dakotah Gallardo DO Location:[facility] Appointment Type:FM Open Appointment Date:09/21/2022 10:15:00 AM Scheduled Provider:Reyes VEGA MD Location:[facility] Appointment Type:URO Office Visit [facility] Evaluation + Plan note Future Appointments Appointment Date:07/04/2022 01:30:00 PM Scheduled Provider:Marilu Cornell PA-C [facility] [place] Appointment Type:Pain Management - Follow Up (FT) Appointment Date:07/15/2022 10:40:00 AM Scheduled Provider:Dakotah Gallardo DO Location:[facility] Appointment Type:FM Open Appointment Date:09/21/2022 10:15:00 AM Scheduled Provider:Reyes VEGA MD Location:[facility] Appointment Type:URO Office Visit [facility] Future Appointments Appointment Date:07/04/2022 09:15:00 AM Scheduled Provider: Location:[facility] Appointment Type:Urology CALL PAT FT Appointment Date:07/04/2022 01:30:00 PM Scheduled Provider:Marilu Cornell PA-C [facility] Appointment Type:Pain Management - Follow Up (FT) Appointment Date:07/11/2022 01:45:00 PM Scheduled Provider: Location:[facility] Appointment Type:Urology FT Appointment Date:07/15/2022 10:40:00 AM Scheduled Provider:Dakotah Gallardo DO Location:[facility] Appointment Type:FM Open Appointment Date:09/21/2022 10:15:00 AM Scheduled Provider:Reyes VEGA MD Location:[facility] Appointment Type:URO Office Visit [facility] Evaluation + Plan note Future Appointments Appointment Date:07/11/2022 03:15:00 PM Scheduled Provider:Floresita Clinton MD [facility] Type:Pulmonary Follow Up (FT) Appointment Date:07/15/2022 10:40:00 AM Scheduled Provider:Dakotah Gallardo DO Location:[facility] Appointment Type:FM Open Appointment Date:09/21/2022 10:15:00 AM Scheduled Provider:Reyes VEGA MD Location:[facility] Appointment Type:URO Office Visit [facility] Evaluation + Plan note Future Appointments Appointment Date:07/15/2022 10:40:00 AM Scheduled Provider:Dakotah Gallardo DO Location:[facility] Appointment Type:FM Open Appointment Date:09/21/2022 10:15:00 AM Scheduled Provider:Reyes VEGA MD Location:[facility] Appointment Type:URO [facility] Future Appointments Appointment Date:07/15/2022 10:40:00 AM Scheduled Provider:Dakotah Gallardo DO Location:[facility] Appointment Type:FM Open Appointment Date:07/22/2022 12:45:00 PM Scheduled Provider:Marliu Cornell PA-C [facility] Appoint[facility] Type:Pain Management - Follow Up (FT) Appointment Date:09/21/2022 10:15:00 AM Scheduled Provider:Reyes VEGA MD Location:[facility] Appointment Type:URO Office [facility] Future Appointments Appointment Date:07/22/2022 12:45:00 PM Scheduled Provider:Marilu Cornell PA-C [facility]oint[facility] Type:Pain Management - Follow Up (FT) Appointment Date:08/12/2022 09:40:00 AM Scheduled Provider:Dakotah Gallardo DO Location:[facility] Appointment Type:FM Procedure Appointment Date:09/21/2022 10:15:00 AM Scheduled Provider:Reyes VEGA MD Location:[facility] Appointment Type:URO Office Visit [facility] evaluation + Plan note Future Appointments Appointment Date:08/12/2022 09:40:00 AM Scheduled Provider:Dakotah Gallardo DO Location:[facility] Appointment Type:FM Procedure Appointment Date:08/23/2022 11:45:00 AM Scheduled Provider: Location:[facility] Appointment Type:Surgery FT Appointment Date:09/05/2022 12:45:00 PM Scheduled Provider:Marilu Cornell PA-C [facility] Appoint[facility] Type:Pain Management - Follow Up (FT) Appointment Date:09/21/2022 10:15:00 AM Scheduled Provider:Reyes VEGA MD Location:[facility] Appointment Type:URO Office Visit [facility] Evaluation + Plan note Future Appointments Appointment Date:08/23/2022 11:45:00 AM Scheduled Provider: Location:[facility] Appointment Type:Surgery FT Appointment Date:09/05/2022 12:45:00 PM Scheduled Provider:Marilu Cornell PA-C [facility] Appointment Type:Pain Management - Follow Up (FT) Appointment Date:09/16/2022 09:40:00 AM Scheduled Provider:Dakotah Gallardo DO Location:[facility] Appointment Type:FM Open Appointment Date:09/21/2022 10:15:00 AM Scheduled Provider:Reyes VEGA MD Location:[facility] Appointment Type:URO Office Visit [facility] evaluation + Plan note Future Appointments Appointment Date:09/16/2022 09:40:00 AM Scheduled Provider:Dakotah Gallardo DO Location:[facility] Appointment Type:FM Open Appointment Date:09/21/2022 10:15:00 AM Scheduled Provider:Reyes VEGA MD Location:[facility] Appointment Type:URO Office Visit Appointment Date:10/24/2022 01:00:00 PM Scheduled Provider: [facility] Type:EMG Bilateral Lower Extremity [facility] Evaluation + Plan note Future Appointments Appointment Date:09/21/2022 10:15:00 AM Scheduled Provider:Reyes VEGA MD Location:[facility] Appointment Type:URO Office Visit Appointment Date:10/24/2022 01:00:00 PM Scheduled Provider: [facility] Type:EMG Bilateral Lower Extremity Appointment Date:11/04/2022 09:40:00 AM Scheduled Provider:Dakotah Gallardo DO Location:[facility] Appointment Type: Procedure [facility] Evaluation + Plan note Future Appointments Appointment Date:10/24/2022 01:00:00 PM Scheduled Provider: [facility] Type:EMG Bilateral Lower Extremity Appointment Date:11/04/2022 09:40:00 AM Scheduled Provider:Dakotah Gallardo DO Location:[facility] Appointment Type:FM Procedure [facility] Evaluation + Plan note Future Appointments Appointment Date:11/04/2022 09:40:00 AM Scheduled Provider:Dakotah Gallardo DO Location:[facility] Appointment Type:FM Procedure [facility] Future Appointments Appointment Date:01/15/2024 03:30:00 PM Scheduled Provider: Location:[facility] Appointment Type:FM Medicare Wellness Subsequent [facility] Evaluation + Plan note Future Appointments Appointment Date:04/18/2023 02:20:00 PM Scheduled Provider:Dakotah Gallardo DO Location:[facility] Appointment Type:FM Open Appointment Date:01/15/2024 03:30:00 PM Scheduled Provider: Location:[facility] Appointment Type:FM Medicare Wellness Subsequent Diagnostic Tests Pending * Methylmalonic Acid 03/31/23 * JUSTEN w/Reflex if POS 03/31/23 * Protein Electrophoresis 03/31/23 [facility] Future Appointments Appointment Date:04/18/2023 02:20:00 PM Scheduled Provider:Dakotah Gallardo DO Location:[facility] Appointment Type:FM Open Appointment Date:01/15/2024 03:30:00 PM Scheduled Provider: Location:[facility] Appointment Type:FM Medicare Wellness Subsequent [facility] evaluation + Plan note Future Appointments Appointment Date:07/04/2023 08:30:00 AM Scheduled Provider: Location:[facility] Appointment Type:Surgery FT Appointment Date:07/17/2023 02:00:00 PM Scheduled Provider:Marilu Cornell PA-C Location[facility] Appointment Type:Pain Management - Follow Up (FT) Appointment Date:01/15/2024 03:30:00 PM Scheduled Provider: Location:[facility] Appointment Type:FM Medicare Wellness Subsequent [facility] Evaluation + Plan note Future Appointments Appointment Date:07/17/2023 02:00:00 PM Scheduled Provider:Marilu Cornell PA-C Location[facility] Appointment Type:Pain Management - Follow Up (FT) Appointment Date:01/15/2024 03:30:00 PM Scheduled Provider: Location:[facility] Appointment Type:FM Medicare Wellness Subsequent [facility] Future Appointments Appointment Date:08/22/2023 09:00:00 AM Scheduled Provider:Dakotah Gallardo DO Location:[facility] Appointment Type:FM Procedure Appointment Date:01/15/2024 03:30:00 PM Scheduled Provider: Location:[facility] Appointment Type: Medicare Wellness Subsequent [facility] Evaluation note* Diagnosis PULM HYPERTENSION- Primary Primary pulmonary hypertension documented in [facility]* [place] 75[place] complaining of pain in her left knee. Patient had a left knee done out of town in 2017 did pretty well postoperatively but now she is complaining of swelling and pain in her knee. She had a fall about a year and a half ago and thinks that may be when her symptoms started. She is unable to take aspirin due to allergy she does take Tylenol. * Location of pain: Left knee medial and anteriorly * Quality of pain: Chronic aching pain getting progressively worse * Modifying factors: Worse with standing for prolonged period time or going up and down stairs sometimes feels like her knees can hyperextend * Associated signs and symptoms: Swelling stiffness no numbness or tingling * Previous treatment: Tylenol and Motrin * Past medical history * The patient's past medical history, family history, social history, and review of systems were documented on the patient's medical intake form. The medical intake form was reviewed and scanned into the electronic medical record for future use. History is otherwise negative except as stated in the HPI. * Physical exam * General: Alert and oriented to place, person, and time. No acute distress and breathing comfortably; pleasant and cooperative with the examination. * HEENT: Head is normocephalic and atraumatic. * Neck: Supple, no visible swelling. * Cardiovascular: Good perfusion to the affected extremity. * Lungs: No audible wheezing or labored breathing. 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 The natural history of the condition and its associated treatment alternatives including surgical and nonsurgical options were discussed with the patient at length. * 2. Recommend continued conservative treatment a short runner knee brace for support and a home exercise program for knee conditioning follow-up in a month. * 3. [ ] * 4. All of the patient's questions were answered. * This note was prepared using voice recognition software. The details of this note are correct and have been reviewed, and corrected to the best of my ability. Some grammatical areas may persist related to the [employer] software * Bashir Rivera MD * . [facility] Work Phone: Hospital course Narrative No data available for this section [facility] Hospital Discharge instructions No data available for this section [facility] Progress note No data available for this section [facility] Summary Purpose Family History No Family History Records FoundNo Family History Records FoundNo Family History Records Found No data available for this section No data available for this section No data available for this section No data available for this section No data available for this section No Family History Records Found No data available for this section No data available for this section No data available for this section No data available for this section No data available for this section No Family History Records Found Advance Directives No Advanced Directives Records FoundNo Advanced Directives Records FoundNo Advanced Directives Records FoundNo Advanced Directives Records FoundNo Advanced Directives Records Found Chief Complaint New Pt c/o Lt knee pain, x-rays today Additional Source Comments INFORMATION SOURCE (unrecogn ized section and content) DATE CREATED AUTHOR 11/21/2019 [facility] DATE CREATED AUTHOR AUTHOR'S ORGANIZ ATION 11/05/2020 [employer] DATE CREATED AUTHOR AUTHOR'S ORGANIZ ATION 12/02/2020 [facility] DATE CREATED AUTHOR AUTHOR'S ORGANIZ ATION 05/16/2023 [facility] EPIC DATE CREATED AUTHOR AUTHOR'S ORGANIZ ATION 08/02/2023 [facility] Source Comments (unrecognize d section and content) In the event this informatio n is protected by the Federal Confidentiality of Alcohol and Drug Abuse Patient Records regulations: The Federal rules restrict any use of the information to criminally investigate or prosecute any alcohol or drug abuse patient.[facility] Care Team (unrecognized sect ion and content) Personnel Name: Aide BALL MD Address: [address] [place] [address] Personnel Name: Aide BALL MD Address: [address] Personnel Name: Aide BALL MD Address: [address] [place] [address] Personnel Name: Aide BALL MD Address: [address] [place] [address] Personnel Name: Aide BALL MD Address: [address] [place] [address] Personnel Name: Aide BALL MD Address: [address] [place] [address] Personnel Name: Dakotah Gallardo DO Address: [address] [place] [address] Personnel Name: Dakotah Gallardo DO Address: [address] [place] [address] Personnel Name: Dakotah Gallardo DO Address: Address: [address] [place] [address] Personnel Name: Marlys Bhardwaj MD Address: Address: [address] [place] [address] Personnel Name: Marlys Bhardwaj MD Address: Address: [address] [place] [address] Personnel Name: Dakotah Gallardo DO Address: Address: [address] [place] [address] Personnel Name: Dakotah Gallardo DO Address: Address: [address] [place] [address] Personnel Name: Dakotah Gallardo DO Address: Address: [address] [place] [address] Personnel Name: Dakotah Gallardo DO Address: Address: [address] [place] [address] Personnel Name: Dakotah Gallardo DO Address: Address: [address] [place], [place] [address] [place] [address] [place] [address]- Personnel Name: Dakotah Gallardo DO Address: Address: [address] [place], [place] [address] [address] [place] [address]- Personnel Name: Dakotah Gallardo DO Address: Address: [address] [place], [place] [address] [place] [address] [place] [address]- Personnel Name: Dakotah Gallardo DO Address: Address: [address] [place], [place] [address] [address] [place] [address]- Personnel Name: Dakotah Gallardo DO Address: Address: [address] [place], [place] [address] [address] [place] [address]- Personnel Name: Dakotah Gallardo DO Address: Address: [address] [place], [place] [address] [place] [id number]- Personnel Name: Dakotah Gallardo DO Address: Address: [address] [place], [place] [address] [place] [id number]- Personnel Name: Dakotah Gallardo DO Address: Address: [address] [place], [place] [address] [place] [id number]- Personnel Name: Dakotah Gallardo DO Address: Address: [address] [place], [place] [address] [place] [address] [place] [address]- Personnel Name: Dakotah Gallardo DO Address: Address: [address] [place], [place] [address] [place] [id number]- Personnel Name: Dakotah Gallardo DO Address: Address: [address] [place], [place] [address] [place] [address] [place] [address]- Personnel Name: Dakotah Gallardo DO Address: Address: [address] [place], [place] [address] [address] [place] [address]- Personnel Name: Dakotah Gallardo DO Address: Address: [address] [place], [place] [address] [address] [place] [address]- Personnel Name: Dakotah Gallardo DO Address: Address: [address] [place], [place] [address] [address] [place] [address]- Personnel Name: Dakotah Gallardo DO Address: Address: [address] [place], [place] [address] [place] [address]- Personnel Name: Dakotah Gallardo DO Address: Address: [address] [place], [place] [address] [address] [place] [address]- Personnel Name: Dakotah Gallardo DO Address: Address: [address] [place], [place] [address] [address] [place] [address]- Personnel Name: Dakotah Gallardo DO Address: Address: [address] [place], [place] [address] [address] [place] [address]- Personnel Name: Dakotah Gallardo DO Address: Address: [address] [place], [place] [address] [place] [address] [address] [place] [address]- Personnel Name: Dakotah Gallardo DO Address: Address: [address] [place], [place] [address] [address] [place] [address]- Personnel Name: Dakotah Gallardo DO Address: Address: [address] [place], [place] [address] [address]- Personnel Name: Dakotah Gallardo DO Address: Address: [address] [place], [place] [address] [place] [id number]- Personnel Name: Dakotah Gallardo DO Address: Address: [address] [place], [place] [address] [place], [place] [address] Personnel Name: Dakotah Gallardo DO Address: Address: [address] [place], [place] [address] [address] [place] [address]- Personnel Name: Dakotah Gallardo DO Address: Address: [address] [place], [place] [address] [address] [address] [place] [address]- Personnel Name: Dakotah Gallardo DO Address: Address: [address] [place], [place] [address] [address] [place] [address]- Personnel Name: Dakotah Gallardo DO Address: Address: [address] [place], [place] [address] [place], [place] [address] Personnel Name: Dakotah Gallardo DO Address: Address: [address] [place], [place] [address] [address] [place] [address]- Personnel Name: Dakotah Gallardo DO Address: Address: [address] [place], [place] [address] [address] [place] [address]- Personnel Name: Dakotah Gallardo DO Address: Address: [address] [place] [address] [address] [place] [id number] Personnel Name: Dakotah Gallardo DO Address: Address: [address] [facility] [address] [place] [id number] Personnel Name: Dakotah Gallardo DO Address: Address: [address] [place] [address] [address] Personnel Name: Dakotah Gallardo DO Address: Address: [address] [place], [place] [id number] [place] [address] Personnel Name: Paulina AGUAYO Dakotah Ani Address: Address: [address] [place] [address] [place] [address] Personnel Name: Paulina AGUAYODakotah Address: Address: [address] [place] [address] Personnel Name: Paulina Dakotah AGUAYO Address: Address: [address] [place] [address] [place] [address] Personnel Name: GeeDakotah olivo DO Address: Address: [address] [place] [address] Personnel Name: Paulina Dakotah AGUAYO Address: Address: [address] [place] [address] Personnel Name: GeeDakotah olivo DO Address: Address: [address] [place] [address] FOR RECORDS PERTAINING TO PATIENTS WHO ARE OR HAVE BEEN ENROLLED IN A CHEMICAL DEPENDENCY/SUBSTANCEABUSE PROGRAM, SOME INFORMATION MAY BE OMITTED. This clinical summary was aggregated from multiple sources. Caution should be exercised in using it in the provision of clinical care. This summary normalizes information from multiple sources, and as a consequence, information in this document may materially change the coding, format and clinical context of patient data. In addition, data may be omitted in some cases. CLINICAL DECISIONS SHOULD BE BASED ON THE PRIMARY CLINICAL RECORDS. [facility] [employer] [facility]. provides no warranty or guarantee of the accuracy or completeness of information in this document.
[2023-08-14 08:48] LABS: Bilirubin Urine NEGATIVE (NEGATIVE); Blood Urine NEGATIVE (NEGATIVE); Clarity Urine CLEAR (CLEAR); Color Urine LT. YELLOW (YELLOW); Glucose Urine UA NEGATIVE (NEGATIVE); Ketones Urine NEGATIVE (NEGATIVE); Leukocyte Esterase Urine SMALL (NEGATIVE); Nitrite Urine NEGATIVE (NEGATIVE); Protein Urine NEGATIVE (NEG/TRACE); Urobilinogen Urine 0.2 EU/dL (0.2-1.0)
[2023-08-14 08:56] LABS: RBC Urine NONE SEEN #/HPF (0-2)
[2023-08-14 08:57] LABS: Bacteria Urine SMALL #/HPF (NONE SEEN); Mucus Urine SMALL (NONE SEEN); Squamous Epithelial Cell Urine FEW #/LPF (NONE/RARE); Urine Culture Indicated ALREADY ORDERED
== END 2023-08-14 07:40 | disposition home or self-care (01) ==
PROVIDERS: PCP Family Medicine Adult Medicine; Visit Provider Physician Assistant
DX: R10.9 Unspecified abdominal pain (principal)
CPT/HCPCS: 81001; 87086

== ENCOUNTER 2023-08-21 07:55 | Outpatient (OUT) | payer MEDICARE, OTHER, SELFPAY ==
--- NOTE | 2023-08-21 08:05 | CT_ITS ---
[address] [address] Patient Name: MATEO HERRERA MRN: [id number] date: 1945 Sex: F Assigned Patient Location: CT Current Patient Location: CT Accession/Order Number: [id number] Exam Date: 08/21/2023 08:48 Report Date: 08/21/2023 09:22 At the request of: PRESTON LENNON Procedure: CT abdomen pelvis wo con EXAMINATION: CT abdomen pelvis wo con HISTORY: Flank Pain R10.9 COMPARISON: No relevant comparison available. TECHNIQUE: Axial, Coronal, and Sagittal images were created without IV contrast. Dose reduction techniques were achieved by using automated exposure control and/or adjustment of mA and/or kV according to patient size and/or use of iterative reconstruction technique. FINDINGS: LUNG BASES: Elevation the right hemidiaphragm. Partial right lower lobe consolidation likely atelectasis. Moderate coronary atherosclerosis LIVER: No enlargement, atrophy, abnormal density, or significant focal lesion. BILIARY: No dilatation or calcification. PANCREAS: No lesion, fluid collection, ductal dilatation, or atrophy. SPLEEN: No enlargement or focal lesion. ADRENALS: No mass or enlargement. KIDNEYS: No mass, obstruction, or calcification. BOWEL/MESENTERY: Colonic diverticulosis without evidence of acute diverticulitis. Nonobstructive bowel gas pattern AORTA/VASCULAR: No aortic aneurysm. Moderate diffuse atherosclerosis RETROPERITONEUM: No mass or adenopathy. LYMPH NODES: No adenopathy. URINARY BLADDER: No visible focal wall thickening, lesion, or calculus. PELVIC ORGANS: No visible mass. Pelvic organs appropriate for patient age. ABDOMINAL WALL: 3.3 cm ventral hernia containing fat without strangulation BONES: No bony lesion or fracture. OTHER: Negative. CT/CT abdomen pelvis wo con IMPRESSION: Marked elevation of the right hemidiaphragm causing mass effect on the heart with basilar atelectasis No obstructive uropathy Electronically authenticated by: NICK CEDEÑO Date: 08/21/2023 09:22
--- OUTSIDE RECORDS SUMMARY | 2023-08-21 08:16 | XMS_ITS | CCD ---
Author Organization [facility] Care Team Providers Care Fitness Instructor Name Role Phone NICK GUERRIER Admitting Unavailable NICK GUERRIER Attending Unavailable NICK GUERRIER Consulting Unavailable [facility] [place] Primary Care Unavailable Dakotah Priest Primary Care Provider Aide Ball Unavailable Unavailable Unavailable Aide BALL Primary Care Physician Dakotah Gallardo Primary Care Physician Unavail able Marlys Bhardwaj Primary Care Physician Dakotah Gallardo Primary Care Physician Unavail able RANI CORCORAN Attending Unavailable Landry Mason Admitting Unavailable Landry Mason Attending Unavailable MD Crow Gaona Admitting Unavailable Crow Gaona Attending Unavailable Dakotah Gallardo Referring Unavailable Marilu Cornell Attending Unavailable Dakotah Gallardo Referring Unavailable Wander Cornellanda Admitting Unavailable Dakotah Gallardo Attending Unavailable Dakotah Gallardo Attending Unavailable Dakotah Gallardo Attending Unavailable Dakotah Gallardo Attending Unavailable Dakotah Gallardo Attending Unavailable Dakotah Gallardo Attending Unavailable Aneta PADainaC Marilu Admitting Unavailabl e Aneta, Marilu Attending Unavailable Dakotah Gallardo Referring Unavailable Cornell, Marilu Admitting Unavailable Cornell, Marilu Attending Unavailable Cornell, Marilu Referring Unavailable MD Crow Gaona Admitting Unavailable Crow Gaona Attending Unavailable Crow Gaona Referring Unavailable Reyes VEGA Attending Unavailable Dakotah Gallardo Attending Unavailable Dakotah Gallardo Attending Unavailable Dakotah Gallardo Attending Unavailable Dakotah Gallardo Attending Unavailable Dakotah Gallardo Attending Unavailable Dakotah Gallardo Attending Unavailable Dakotah Gallardo Attending Unavailable ALEX LENNON Attending UnavailDakotah Kat Attending Unavailable MD Crow Gaona Admitting Unavailable Crow Gaona Attending Unavailable Crow Gaona Referring Unavailable Allergies Allergy Classification Reported Allergen(s) Allergy Type Date of Onset Reaction(s) Facility Aspirin (1 source) Aspirin Drug Allergy 6 [facility] Chocolate (1 source) Chocolate Food Allergy 6 [facility] Iodine (and Iodine containting drugs) (1 source) Iodine Drug Allergy 6 [facility] Penicillins (antibiotic) (1 source) Penicillins Drug Allergy 6 [facility] Sulfonamides (antibiotic) (1 source) Sulfonamides (Antibiotic) Drug Allergy 6 [facility] (1 source) Adhesive agent Drug allergy (disorder) [facility] (2 sources) Aspirin; Translations: [aspirin] Drug Allergy [facility] (1 source) Chocolate Drug allergy (disorder) [facility] (2 sources) Iodine; Translations: [iodine] Drug Allergy 6 [facility] (1 source) Penicillin Drug Allergy 6 [facility] (1 source) Sulfonamides (Antibiotic) Drug allergy (disorder) [facility] (20 sources) Aspirin; Translations: [Aspirin TABS] Drug Allergy Nausea [facility] Work Phone: (1 source) Iodine; Translations: [Iodine SOLN] Drug Allergy [facility] Work Phone: (20 sources) Penicillins; Translations: [Penicillins] Allergy to drug (finding) Eruption of skin (disorder) [facility] Work Phone: (1 source) Sulfonamides (Antibiotic); Translations: [Sulfa Drugs] Allergy to drug (finding) [facility] Work Phone: (1 source) Adhesive Tape TAPE; Translations: [Adhesive Tape TAPE] Allergy to drug (finding) [facility] Work Phone: (20 sources) Adhesive bandage; Translations: [Adhesive Bandage] Allergy to substance Eruption of skin (disorder) [facility] (20 sources) Chocolate; Translations: [Chocolate] Food allergy Anaphylaxis (disorder) [facility] (20 sources) Sulfamethoxazole; Translations: [sulfamethoxazole ] Drug Allergy Swelling [facility] (20 sources) iodinated radiocontrast dyes 1; Translations: [iodinated radiocontrast agents] Drug allergy Unknown (qualifier value) [facility] Comment on above: gave benadryl last t dipika and did ok (1 source) iodinated radiocontrast dyes; Translations: [iodinated radiocontrast dyes] Propensity to adverse reactions (disorder) [facility] Repository Medications Current Medications Medication Drug Class(es) Dates Sig (Normalized) Sig (Original) acetaminophen 500 mg oral tablet (20 sources) Start: 05-22-2023 take 500 mg by mouth every six hours Tylenol 500 mg, Oral, q6hr, Refills(s) 0 Start Date: 05/22/23 Status: Ordered Start: 05-22-2023 Tylenol Refill s(s) 0 Start Date: 05/22/23 Status: Ordered Start: 05-14-2019 take 2 tablets by [facility] every six hours as needed for pain [...] 60 tab(s), Refill(s) 0, 30 day supply, [facility]/pharmacy #[id number], 169, cm, 05/22/23 11:18:00 EDT, Height/Length Dosing, 84.1, kg, 05/22/23 11:18:00 EDT, Weight Dosing Start Date: 06/29/23 Status: Ordered Start: 06-01-2023 acetaminophen- oxycodone 325 mg-5 mg Tab 1 tab(s), Oral, BID, 60 tab(s), Refill(s) 0, 30 day supply, [facility]/pharmacy #[id number], 169, cm, 05/22/23 11:18:00 EDT, Height/Length Dosing, 84.1, kg, 05/22/23 11:18:00 EDT, Weight Dosing Start Date: 06/01/23 Status: Ordered Start: 05-02-2023 acetaminophen- oxycodone 325 mg-5 mg Tab 1 tab(s), Oral, BID, 60 tab(s), Refill(s) 0, [facility]/pharmacy #[id number], 169, cm, 04/18/23 14:16:00 EST, Height/Length Dosing, 86.3, kg, 04/18/23 14:16:00 EST, Weight Dosing Start Date: 05/02/23 Status: Ordered Start: 03-28-2023 acetaminophen- oxycodone 325 mg-5 mg Tab 1 tab(s), Oral, BID, 60 tab(s), Refill(s) 0, [facility]/pharmacy #[id number], 164, cm, 01/09/23 16:01:00 EDT, Height/Length Dosing, 86.6, kg, 01/09/23 16:01:00 EDT, Weight Dosing Start Date: 03/28/23 Status: Ordered Start: 11-04-2022 take 1 tablet by jaden th at bedtime Percocet 5 mg-325 mg oral tablet 1 tab(s), Oral, Bedtime, 30 tab(s), Refill(s) 0, [facility], 164, cm, 11/04/22 10:24:00 EDT, Height/Length Dosing, 85, kg, 11/04/22 10:24:00 EDT, Weight Dosing Start Date: 11/04/22 Status: Ordered Start: 10-04-2022 take 1 tablet by [facility] twice daily Percocet 5 mg-325 mg oral tablet 1 tab(s), Oral, BID, 60 tab(s), Refill(s) 0, [facility], 164, cm, 09/16/22 10:08:00 EDT, Height/Length Dosing, 87.7, kg, 09/16/22 10:08:00 EDT, Weight Dosing Start Date: 10/04/22 Status: Ordered Start: 08-30-2022 take 1 tablet by [facility] twice daily Percocet 5 mg-325 mg oral tablet 1 tab(s), Oral, BID, 60 tab(s), Refill(s) 0, [facility], 168, cm, 08/23/22 10:38:00 EDT, Height/Length Dosing, 90.8, kg, 08/18/22 19:15:00 EDT, Weight Dosing Start Date: 08/31/22 Status: Ordered Start: 07-27-2022 Percocet 5 mg- 325 mg oral tablet 1 tab(s), Oral, BID, 60 tab(s), Refill(s) 0, [facility]/pharmacy #[id number], 168, cm, 07/22/22 13:03:00 EDT, Height/Length Dosing, 89.8, kg, 07/22/22 13:03:00 EDT, Weight Dosing Start Date: 07/27/22 Status: Ordered Start: 07-15-2022 Percocet 5 mg- 325 mg oral tablet 1 tab(s), Oral, BID, 14 tab(s), Refill(s) 0, [facility]/pharmacy #[id number], 168, cm, 07/15/22 11:11:00 EDT, Height/Length Dosing, 84.1, kg, 07/15/22 11:11:00 EDT, Weight Dosing Start Date: 07/15/22 Status: Ordered albuterol 0.833 mg/ml / ipratropium bromide 0.167 mg/ml inhalation solution (20 sources) Anticholinergic, beta2-Adrenergic Agonist Start: 02-26-2021 take 3 mL by inhalation four times daily albuterol-ipratropium Inh Lizzeth 3 mL UD 3 mL, NEB, QID Wheezing, 120 EA, Refill(s) 11, [facility]/pharmacy #[id number], 165, cm, 02/26/21 14:54:00 EST, Height/Length Dosing, 88.6, kg, 02/26/21 14:54:00 EST, Weight Dosing Start Date: 02/26/21 Status: Ordered Start: 02-26-2021 take 3 mL by inhalat ion four times daily albuterol-ipratropium Inh Lizzeth 3 mL UD 3 mL, NEB, QID Wheezing, 120 EA, Refill(s) 11, [facility]/pharmacy #[id number], 165, cm, 02/26/21 14:54:00 EST, Height/Length Dosing, 88.6, kg, 02/26/21 14:54:00 EST, Weight Dosing Start Date: 02/26/21 Status: Ordered amLODIPine 5 mg oral tablet (20 sources) Dihydropyridine Calcium Channel Tamar Start: 04-06-2023 take 1 tablet by mouth once daily amLODIPine 5 mg Tab 5 mg = 1 tab(s), Oral, Daily, # 90 tab(s), Refills(s) 4, [id number], cm, 03/31/23 13:47:00 EST, Height/Length Dosing, 83.6, kg, 03/31/23 13:47:00 EST, Weight Dosing Start Date: 04/06/23 Status: Ordered Start: 02-28-2022 take 1 tablet by jaden th once daily amLODIPine 5 mg Tab 5 mg = 1 tab(s), Oral, Daily, # 90 tab(s), Refills(s) 3, Pharmacy: [facility]/pharmacy #[id number], 168, cm, 02/28/22 16:04:00 EST, Height/Length Dosing, 89.7, kg, 02/28/22 16:04:00 EST, Weight Dosing Start Date: 02/28/22 Status: Ordered Start: 01-12-2021 take 1 tablet by jaden th once daily amLODIPine 5 mg Tab 5 mg = 1 tab(s), Oral, Daily, # 90 tab(s), Refills(s) 3, [id number] 165.7, cm, 01/12/21 9:44:00 EDT, [...] day(s), # 6 tab(s), Refills(s) 1, [id number] 165, cm, 05/30/22 11:07:00 EDT, Height/Length Dosing, 87.6, kg, 05/30/22 11:07:00 EDT, Weight Dosing Start Date: 05/30/22 Stop Date: 06/05/22 Status: Ordered Start: 02-28-2022 End: 03-10-2022 azithromycin 250 mg Tab = 1 packet(s), Oral, As Directed, as directed on package labeling, X 5 day(s), # 6 tab(s), Refills(s) 1, [id number] 168, cm, 02/28/22 16:04:00 EST, [...] hector, # 6 tab(s), Refills(s) 0, [id number] 168, cm, 10/01/21 16:17:00 EDT, Height/Length Dosing, 86, kg, 10/01/21 16:17:00 EDT, Weight Dosing Start Date: 10/01/21 Status: Ordered Start: 09-21-2021 End: 09-26-2021 azithromycin 250 mg Tab 5-da y Dose Pack (Z-Hector) 250 mg = 1 tab(s), Oral, As Directed, as directed on package labeling, X 5 day(s), # 6 tab(s), Refills(s) 0, [id number] 168, cm, 07/30/21 10:21:00 EDT, Height/Length Dosing, 87.2, kg, 07/30/21 10:21:00 EDT, Weight Dosing Start Date: 09/21/21 Stop Date: 09/26/21 Status: Ordered Start: 07-28-2021 End: 08-02-2021 azithromycin 250 mg Tab 5-da y Dose Pack (Z-Hector) = 1 packet(s), Oral, As Directed, as directed on package labeling, X 5 day(s), # 6 tab(s), Refills(s) 0, [id number] 168, cm, 07/28/21 13:24:00 EDT, [...] day(s), # 14 tab(s), Refills(s) 0, Pharmacy: [facility]/pharmacy #[id number], 168, cm, 07/31/23 15:00:00 EDT, Height/Length Dosing, 84, kg, 07/31/23 15:00:00 EDT, Weight Dosing Start Date: 07/31/23 Stop Date: 08/07/23 Status: Ordered Start: 06-09-2022 Cipro 500 mg T ab 500 mg = 1 tab(s), Oral, BID, Take twice daily x5 days starting the day prior to the procedure, # 10 tab(s), Refills(s) 0, Pharmacy: [facility]/pharmacy #[id number], 168, cm, 06/06/22 14:12:00 EDT, Height/Length Dosing, 87.6, kg, 05/30/22 11:07:00 EDT, Weight Dosing Start Date: 06/09/22 Status: Ordered Start: 02-14-2022 take 1 tablet by jaden th twice daily Cipro 500 mg Tab 500 mg = 1 tab(s), Oral, BID, start day prior to procedure., # 14 tab(s), Refills(s) 0, Pharmacy: [facility]/pharmacy #[id number], 168, cm, 02/14/22 10:28:00 EST, Height/Length Dosing, 89.3, kg, 02/14/22 10:28:00 EST, Weight Dosing Start Date: 02/14/22 Status: Ordered clotrimazole 10 mg oral lozenge (1 source) Azole Antifungal Start: 02-28-2022 End: 03-14-2022 clotrimazole 10 mg Emerald 10 mg = 1 lozenge(s), Oral, 5x/Day, X 7 day(s), # 35 lozenge(s), Refills(s) 1, Pharmacy: [facility]/pharmacy #[id number], 168, cm, 02/28/22 16:04:00 EST, Height/Length [...] Bedtime, # 30 tab(s), Refills(s) 11, Pharmacy: [facility]/pharmacy #[id number], 168, cm, 08/12/22 9:51:00 EDT, Height/Length Dosing, 86.9, kg, 08/12/22 9:51:00 EDT, Weight Dosing Start Date: 08/12/22 Status: Ordered Start: 07-15-2022 take 1 tablet by jaden th at bedtime cyclobenzaprine 5 mg Tab 5 mg = 1 tab(s), Oral, Bedtime, # 30 tab(s), Refills(s) 0, Pharmacy: [facility]/pharmacy #[id number], 168, cm, 07/15/22 11:11:00 EDT, Height/Length Dosing, 84.1, kg, 07/15/22 11:11:00 EDT, Weight Dosing Start Date: 07/15/22 Status: Ordered dexlansoprazole 60 mg delayed release oral capsule (20 sources) Proton Pump Inhibitor Start: 04-26-2019 take 1 capsule by mouth once daily Dexilant 60 mg oral delayed release capsule 60 mg = 1 cap(s), Oral, Daily, # 7 cap(s), Refills(s) 0, Pharmacy: [facility] [place] #37, 172.72, cm, 04/24/19 11:14:00 EST, Height/Length [...] day(s), # 20 cap(s), Refills(s) 0, Pharmacy: [facility]/pharmacy #[id number], 168, cm, 01/13/22 10:18:00 EDT, Height/Length [...] TID, # 180 cap(s), Refills(s) 11, [id number] 169, cm, 03/31/23 13:47:00 EST, Height/Length Dosing, 83.6, kg, 03/31/23 13:47:00 EST, Weight Dosing Start Date: 03/31/23 Status: Ordered Start: 08-12-2022 take 2 capsules by m outh twice daily gabapentin 100 mg Cap 200 mg = 2 cap(s), Oral, BID, # 120 cap(s), Refills(s) 11, [id number] 168, cm, 08/12/22 9:51:00 EDT, Height/Length Dosing, 86.9, kg, 08/12/22 9:51:00 EDT, Weight Dosing Start Date: 08/12/22 Status: Ordered Start: 04-19-2022 take 1 capsule by mo uth three times daily gabapentin 100 mg Cap 100 mg = 1 cap(s), Oral, TID, # 90 cap(s), Refills(s) 2, Pharmacy: [facility]/pharmacy #[id number], 168, cm, 04/19/22 10:28:00 EST, Height/Length [...] tab(s), Oral, Daily, 90 tab(s), Refill(s) 4, [facility]/pharmacy #[id number], 164, cm, 01/09/23 16:01:00 EDT, Height/Length Dosing, 86.6, kg, 01/09/23 16:01:00 EDT, Weight Dosing Start Date: 01/20/23 Status: Ordered Start: 01-04-2023 take 1 tablet by jaden th once daily Maxzide-25 oral tablet 1 tab(s), Oral, Daily, 90 tab(s), Refill(s) 4, [facility], 164, cm, 11/04/22 10:24:00 EDT, Height/Length Dosing, 85, kg, 11/04/22 10:24:00 EDT, Weight Dosing Start Date: 01/04/23 Status: Ordered Start: 01-17-2022 Maxzide-25 ora l tablet 1 tab(s), Oral, Daily, 90 tab(s), Refill(s) 3, Covering for , [facility]/pharmacy #[id number], 168, cm, 01/13/22 10:18:00 EDT, Height/Length Dosing, 89.3, kg, 01/13/22 10:18:00 EDT, Weight Dosing Start Date: 01/17/22 Status: Ordered Start: 01-15-2021 Maxzide-25 ora l tablet 1 tab(s), Oral, Daily, 90 tab(s), Refill(s) 3, [facility]/pharmacy #[id number], 165.7, cm, 01/12/21 9:44:00 EDT, Height/Length [...] 07-10-2020 Misc Medication 2 tab(s), Oral, BID, Hyroeye gets from Dr. Khan Start Date: 07/10/20 Status: Ordered naloxone hydrochloride 40 mg/ml nasal spray (20 sources) Opioid Antagonist Start: 07-12-2022 Narcan 4 mg/0.1 mL nasal spray 4 mg, Nasal, As Directed, for suspected overdose symptoms, # 1 kit(s), Refills(s) 0, Pharmacy: [facility]/pharmacy #[id number], 168, cm, 07/11/22 15:36:00 EDT, Height/Length [...] Daily, # 90 cap(s), Refills(s) 4, Pharmacy: [facility]/pharmacy #[id number], 169, cm, 03/31/23 13:47:00 EST, Height/Length Dosing, 83.6, kg, 03/31/23 13:47:00 EST, Weight Dosing Start Date: 04/06/23 Status: Ordered Start: 05-30-2022 take 1 capsule by [facility] once daily omeprazole 20 mg Cap-DR 20 mg = 1 cap(s), Oral, Daily, # 90 cap(s), Refills(s) 4, Pharmacy: [facility]/pharmacy #[id number], 165, cm, 05/30/22 11:07:00 EDT, Height/Length Dosing, 87.6, kg, 05/30/22 11:07:00 EDT, Weight Dosing Start Date: 05/30/22 Status: Ordered predniSONE 20 mg oral tablet (20 sources) Start: 05-30-2022 End: 06-05-2022 take 2 tablets by mouth once daily predniSONE 20 mg Tab 40 mg = 2 tab(s), Oral, Daily, X 3 day(s), # 6 tab(s), Refills(s) 1, Pharmacy: [facility]/pharmacy #[id number], 165, cm, 05/30/22 11:07:00 EDT, Height/Length Dosing, 87.6, kg, 05/30/22 11:07:00 EDT, Weight Dosing Start Date: 05/30/22 Stop Date: 06/05/22 Status: Ordered Start: 02-28-2022 End: 03-14-2022 take 2 tablets by mouth once daily predniSONE 20 mg Tab 40 mg = 2 tab(s), Oral, Daily, X 7 day(s), # 14 tab(s), Refills(s) 1, Pharmacy: [facility]/pharmacy #[id number], 168, cm, 02/28/22 16:04:00 EST, Height/Length Dosing, 89.7, kg, 02/28/22 16:04:00 EST, Weight Dosing Start Date: 02/28/22 Stop Date: 03/14/22 Status: Ordered Start: 10-01-2021 predniSONE 10 mg Tab 30 mg = 3 tab(s), Oral, As Directed, rescue hector, # 21 tab(s), Refills(s) 0, Pharmacy: [facility]/pharmacy #[id number], 168, cm, 10/01/21 16:17:00 EDT, Height/Length Dosing, 86, kg, 10/01/21 16:17:00 EDT, Weight Dosing Start Date: 10/01/21 Status: Ordered Start: 09-21-2021 End: 01-20-2022 take 3 tablets by mouth once daily predniSONE 20 mg Tab 60 mg = 3 tab(s), Oral, Daily, X 7 day(s), # 21 tab(s), Refills(s) 0, Pharmacy: [facility]/pharmacy #[id number], 168, cm, 01/13/22 10:18:00 EDT, Height/Length Dosing, 89.3, kg, 01/13/22 10:18:00 EDT, Weight Dosing Start Date: 01/13/22 Stop Date: 01/20/22 Status: Ordered Start: 07-28-2021 End: 08-02-2021 take 2 tablets by mouth once daily predniSONE 20 mg Tab 40 mg = 2 tab(s), Oral, Daily, X 5 day(s), # 10 tab(s), Refills(s) 0, Pharmacy: [facility]/pharmacy #[id number], 168, cm, 07/28/21 13:24:00 EDT, Height/Length [...] bid, # 120 tab(s), Refills(s) 11, Pharmacy: [facility]/pharmacy #[id number], 168, cm, 07/12/21 11:04:00 EDT, Height/Length Dosing, 89.3, kg, 07/12/21 11:04:00 EDT, Weight Dosing Start Date: 07/16/21 Status: Ordered Start: 08-07-2020 take 1 tablet by jaden th twice daily ropinirole 2 mg Tab 2 mg = 1 tab(s), Oral, BID, # 60 tab(s), Refills(s) 11, Pharmacy: [facility]/pharmacy #[id number], 170, cm, 08/07/20 10:46:00 EDT, Height/Length [...] pain, # 12 tab(s), Refills(s) 0, Pharmacy: [facility]/pharmacy #[id number], 168, cm, 07/11/22 15:36:00 EDT, Height/Length [...] elva, Topical, BID, 30 gm, Refill(s) 5, [facility]/pharmacy #[id number], 165.7, cm, 12/09/20 14:23:00 EDT, Height/Length Dosing, 72.7, kg, 12/09/20 14:23:00 EDT, Weight Dosing Start Date: 12/11/20 Status: Ordered Completed/Discontinued Medications Medication Drug Class(es) Dates Sig (Normalized) Sig (Original) albuterol HFA 90 mcg/inh MDI (20 sources) Start: 07-08-2020 take 1 dose by inhalation every four hours albuterol HFA 90 mcg/inh MDI 2 puff(s), Inhalation, q4hr for wheezing, 1 EA, Refill(s) 11, [facility]/pharmacy #[id number], 170, cm, 07/08/20 10:28:00 EDT, Height/Length [...] Take one(1) tablet d aily if needed [facility] D[facility] Prescription (7 sources) Start: 03-31-2023 [facility] Prescription [facility] Prescription, See Instructions, 1 EA, 0, Wheelchair, Supply Start Date: 03/31/23 Status: Ordered microencapsulated potassium chloride 20 meq extended release oral tablet (1 source) Start: 01-09-2006 K-DUR 20 MEQ TAB Take one(1) tablet daily if needed 0 01/09/2006 Active Comment on above: Take one(1) tablet d aily if needed Problems Active Problems Problem Classification Problem Date [...] Unclassified (20 sources) Patient encounter status 05-05-2020 Results Test Name Value Interpretation Reference Range Facil ity Lab Report[facility] 08-15-2023 Lab Reports [id number] #1.00TIFF Normal [facility] Lab Reports [id number]# 1.00TIFF Normal [facility] Ambulatory Visit Summaryon 0 07-31-2023 Ambulatory Visit [...] Progressing Your Care Team Attending Physician - PRESTON LENNON PA-C Primary Care Physician - Dakotah Gallardo DO This Is Your Medications List Misc Prescription (Handicap Placard) Misc Prescription (Misc DME Prescription) Misc Prescription (nebulizer supplies) acetaminophen (Tylenol) acetaminophen-oxycod one (acetaminophen-oxyco done 325 mg-5 mg Tab) amlodipine (amLODIPine 5 mg Tab) bisacodyl (Dulcolax Tab-EC) gabapentin (gabapentin 100 mg Cap) hydrochlorothiazide- triamterene (Maxzide-25 oral tablet) omeprazole (omeprazole 20 mg Cap-DR) triamcinolone topical [...] AM EDT With: Dakotah Gallardo DO Where: [facility] [place] Normal [address] [place] [address]-\.br\ Medications\.br\ What How Much When Why Instructions\.br\ [...] for choosing us for your care.\.br\ \.br\ [facility] Lab Report[facility] 07-31-2023 Lab Reports [id number]# 1.00TIFF Normal [facility] Lab Reports [id number]# 1.00TIFF Normal [facility] Patient Educationon 07-31-19 Patient Education Caregiving Antibiotic Medicine, Adult Antibiotic [...] Follow these instructions at home: ? Take bjte-cks-fypdofy and prescription medicines as told by your [...] get worse. (more content not included)... Normal [facility] Urology Office/Clinic Noteon 07-31-2023 Urology Office/Clinic Note [...] hematuria. good po intake. UACS submitted at [facility] this weekend shows 100k Klebsiella. 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 therefore looks like FQ will be a good option. advised pt of rare but serious risk with fluoroquinolones for tendinitis/tendon rupture. avoid strenuous activity/heavy lifting while on med. if develops muscle/joint pain, dc med immediately and contact us. we agree benefits outweigh risks at this time. 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 no [...] day(s), # 14 tab(s), Refills(s) 0, Pharmacy: [facility]/pharmacy #[id number], 168, cm, 07/31/23 15:00:00 EDT, Height/Length Dosing, 84, kg, 07/31/23 15:00:00 EDT, Weight Dosing 69546 Measure Post Void residual urine and/or bladder [...] Urnls Dip Stick Auto w/o Microscopy POC [id number] Follow-up With When Contact Information PRESTON LENNON PA-C, URL Only if needed [address] [place] [address] [facility] (1) Additional Instructions: Patient Education Antibiotic Medicine, [...] rib cage (more content not included)... Normal [facility] Comment on above: Result Comment: Elec tronically Signed By: PRESTON LENNON PA-C\.br\Date and Time Signed: 07/31/23 15:31 EDT Consent for Treatmenton Consent for Treatment [id number]#1.00TIFF Normal [facility] Consultation Noteon 07-17-19 Consultation Note Patient: OSIRIS [...] tab(s), Oral, Daily, 90 tab(s), [facility](s) 4, [id number], cm, 01/09/23 16:01:00 EDT, Height/Length Dosing, 86.6, kg, 01/09/23 16:01:00 EDT, Weight Dosing [facility] D[facility] Prescription: [facility] Prescription, See Instructions, 1 EA, 0, Wheelchair, Supply amLODIPine 5 mg Tab: 5 mg = 1 tab(s), Oral, Daily, # 90 tab(s), Refills(s) 4, [id number] 169, cm, 03/31/23 13:47:00 EST, Height/Length Dosing, 83.6, kg, 03/31/23 13:47:00 EST, Weight Dosing gabapentin 100 mg Cap: 200 mg = 2 cap(s), Oral, TID, # 180 cap(s), Refills(s) 11, [id number] 169, cm, 03/31/23 13:47:00 EST, [...] Daily, # 90 cap(s), Refills(s) 4, [id number] 169, cm, 03/31/23 13:47:00 EST, Height/Length Dosing, 83.6, kg, 03/31/23 13:47:00 EST, Weight Dosing triamcinolone Top 0.1% Crm 15 gram: 1 elva, Topical, BID, 30 gram, Refill(s) 11, [facility] [id number], cm, 01/09/23 16:01:00 EDT, Height/Length Dosing, 86.6, kg, 01/09/23 16:01:00 EDT, Weight Dosing Documented Medications Documented Dulcolax Tab-EC: 2-3 tabs, Oral, Daily, adjusts for constipation concerns, Refills(s) 0 Tylenol: Refills(s) 0 Problem list: All Problems 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 Tremor / SNOMED CT 73893694 / Confirmed DDD (degenerative disc disease), cervical / SNOMED CT 586492684 / Confirmed Bilateral hearing loss / SNOMED CT 984315314 / Confirmed GERD (gastroesophageal reflux disease) / SNOMED CT 896230655 / Confirmed HTN (hypertension) / SNOMED CT 4020842445 / Confirmed Emphysema/COPD / SNOMED CT 7065913 / Confirmed History of stroke / SNOMED CT 6554756686 / Confirmed Former smoker / SNOMED CT 67611962 / Confirmed Other urethral stricture, female / SNOMED CT 099112612 / Confirmed Mixed incontinence / SNOMED CT 51747651 / Confirmed Wears hearing aid in both ears / SNOMED CT 651125911 / Confirmed Generalized osteoarthritis / SNOMED CT 230289950 / Confirmed 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 / SNOMED CT 0289180478 / Confirmed Irritable bowel syndrome with predominant constipation / SNOMED CT 8521013087 / Confirmed Lumbar radiculopathy, right / SNOMED CT 824048910 / Confirmed Patient has healthcare proxy and living will / SNOMED CT 9458391664 / Confirmed OAB (overactive bladder) / SNOMED CT 7294744428 / Confirmed Incontinence without sensory awareness / SNOMED CT 4426698343 / Confirmed Edema / SNOMED CT 539478991 / Confirmed Peripheral neuropathy / SNOMED CT 017047902 / Confirmed Leg pain, left / SNOMED CT 8779968143 / Confirmed Dependent for transportation / SNOMED CT 578003437 / Confirmed Thoracic aorta atherosclerosis / SNOMED CT 425323916 / Confirmed Enrolled in chronic care management / SNOMED CT 859104727 / Confirmed Obesity due to excess calories / SNOMED CT 8607304987 / Confirmed Elevated diaphragm / SNOMED CT 863682984 / Confirmed Pain of right sacroiliac joint / SNOMED CT 080195635 / Confirmed RLS (restless legs syndrome) / SNOMED CT 61701667 / Confirmed Somatic dysfunction of cervical region / SNOMED CT 9207884188 / Confirmed Somatic dysfunction of thoracic region / SNOMED CT 9861586827 / Confirmed Somatic dysfunction of lumbar region / SNOMED CT 5048933779 / Confirmed Somatic dysfunction of sacral spine / SNOMED CT 3719339056 / Confirmed Somatic dysfunction of lower extrem (more content not included)... Normal [facility] Comment on above: Result Comment: Elec tronically Signed By: Marilu Cornell PA-C\.br\Date and Time Signed: 07/17/23 14:23 EDT Office/Clinic Note-Physician on 07-17-2023 Office/Clinic Note-Physician [id number] 46#1.00TIFF Normal [facility] Patient Correspondenceon Patient Correspondence [id number] 31#1.00TIFF Normal [facility] Patient Correspondence [id number] 59#1.00TIFF Normal [facility] Patient Correspondence [id number] 40#1.00TIFF Normal [facility] Patient History Officeon Patient History Office [id number] 80#1.00TIFF Normal [facility] Consent for Procedure/Surger yon 07-04-2023 Consent for Procedure/Surgery [id number] 7#1.00TIFF Normal [facility] Consent for Treatmenton 06-12 Consent for Treatment [id number] #1.00TIFF Normal [facility] Consultation Noteon 07-04-19 Consultation Note [id number] #1.00TIFF Normal [facility] Discharge Instructionson Discharge Instructions [id number] 1#1.00TIFF [facility] IntraOperative Documentson 0 07-04-2023 IntraOperative Documents [id number] 6#1.00TIFF Normal [facility] IntraOperative Documents [id number] 1#1.00TIFF [facility] IntraOperative Documents [id number] 3#1.00TIFF [facility] Main OR Intraoperative Recor don 07-04-2023 Main OR Intraoperative Record IntraOp Document Type FTPM Summary Primary Physician: Crow Gaona MD Finalized Date/Time: 07/04/23 08:32:57 Pt. Name: OSIRIS HERRERA/Sex: 1945 Female Med Rec #: [id number] Physician: Crow Gaona MD Financial #: [id number] Pt. Type: P Room/Bed: / Admit/Disch: 07/04/23 07:32:40 - Institution: Case Times FTPM Entry 1 Patient Times In Room 07/04/23 08:27:00 Out Room 07/04/23 08:32:00 Procedure Times Start 07/04/23 08:30:00 Stop 07/04/23 08:31:00 Anesthesia Times Last Modified By: Leydi Ferrell RN 07/04/23 08:32:51 Case Attendance FTPM Entry 1 Entry 2 Entry 3 Case Attendee Jimenez BANSAL, Crow Ferrell RN, Leydi Espino RN, Oliva Law Role Performed Surgeon - Primary Boiler Attendant - Primary Scrub - Primary Time In 07/04/23 08:27:00 07/04/23 08:27:00 07/04/23 08:27:00 Time Out 07/04/23 08:32:00 07/04/23 08:32:00 07/04/23 08:32:00 Procedure SACROILIAC JOINT SACROILIAC JOINT SACROILIAC JOINT INJECTION(Right) INJECTION(Right) INJECTION(Right) Comments Last Modified By: Ghassan VILLALPANDO, Leydi Ferrell RN, Leydi Myrick RN 07/04/23 08:32:52 07/04/23 08:32:52 07/04/23 08:32:52 Entry 4 Case Attendee Blake RT(R)Zuleyma Role Performed Pearl Stringer Time In 07/04/23 08:27:00 Time Out 07/04/23 [...] Antibiotic No Time Out Leydi Ferrell RN, Roderick RN, Jimenez Swain MD, Blake Galaviz RT(R), Zuleyma Time Out Complete 07/04/23 08:27:00 [...] Description SIJI Primary Procedure Yes Primary Surgeon Crow Gaona MD Start 07/04/23 08:30:00 Stop 07/04/23 08:31:00 Anesthesia [...] and tissue Entry 1 Skin Integrity Intact, [place], Warm, and Skin Abnormality No Dry Outcomes [...] Last Mo (more content not included)... Normal [facility] Main OR Preoperative Recordo n 07-04-2023 Main OR Preoperative Record Holding Area Document Type FTPM Summary Primary Physician: Crow Gaona MD Finalized Date/Time: 07/04/23 07:49:47 Pt. Name: OSIRIS HERRERA /Sex: 1945 Female Med Rec #: [id number] Physician: Crow Gaona MD Financial #: [id number] Pt. Type: P Room/Bed: / Admit/Disch: 07/04/23 [...] comments below for reason Last Modified By: Nadja Corcoran RN 07/04/23 07:49:12 General Comments: water yogurt Finalized By: Nadja Corcoran RN Document Signatures Signed By: Nadja Corcoran RN 07/04/23 07:49 Normal [facility] Operative Reporton Operative Report Patient: OSIRIS HERRERA Age: 78 years Sex: Female : 1945 Associated Diagnoses: None Author: Crow Gaona MD Procedure Procedure: Sacroiliiac Joint injection with Fluoroscopic [...] EDT Respiratory Rate 15 br/min . Normal [facility] Comment on above: Result Comment: Elec tronically Signed By: Crow Gaona MD\.br\Date and Time Signed: 07/04/23 08:31 EDT Pre-Visit Planningon 024 Pre-Visit Planning - From: Lexii Chester To: Dakotah Gallardo DO; Sent: 06/26/2023 13:11:06 EDT Subject: Pre-Visit Planning Due Date/Time: 06/26/2023 13:10:00 EDT Caller Name: OSIRIS HERRERA; Caller Number: Sunita , Mt Dr. Gallardo. During a pre-visit planning chart [...] feel free to contact me at extension [phone]. Thank you! Lexii Chester LPN - From: LAURO VUONG To: Lexii Chester; Sent: 06/27/2023 07:48:13 EDT Subject: RE: Pre-Visit Planning Caller Name: OSIRIS HERRERA; Caller Number: H , M Chronic respiratory failure with hypoxia Normal [address] [place] [address] Pre-Visit Planning - From: Lexii Chester To: Dakotah Gallardo DO; Sent: 06/26/2023 13:00:02 EDT Subject: Pre-Visit Planning Due Date/Time: 06/26/2023 13:00:00 EDT Caller Name: OSIRIS HERRERA; Caller Number: H , M Mt Dr. Gallardo. During a pre-visit planning chart [...] feel free to contact me at extension [phone]. Thank you! Lexii Chester LPN - From: LAURO VUONG To: Lexii Chester; Sent: 06/27/2023 07:47:28 EDT Subject: RE: Pre-Visit Planning Caller Name: OSIRIS HERRERA; Caller Number: H , M Major depressive disorder, recurrent, mild Normal [address] [place] [address] Pre-Visit Planning - From: Lexii Chester To: Dakotah Gallardo DO; Sent: 06/26/2023 11:53:00 EDT Subject: Pre-Visit Planning Due Date/Time: 06/26/2023 11:52:00 EDT Caller Name: OSIRIS HERRERA; Caller Number: H , M Mt Dr. Gallardo. During a pre-visit planning chart [...] feel free to contact me at extension [phone]. Thank you! Lexii Chester LPN - From: LAURO VUONG To: Lexii Chester; Sent: 06/27/2023 07:46:24 EDT Subject: RE: Pre-Visit Planning Caller Name: OSIRIS HERRERA; Caller Number: H , M Chronic Kidney Disease Stage 3a (GFR 45-59) Normal [address] [facility] 06-09-19 Population [facility] Case Information Case Priority: None Programs: -- Referral Source: Blocklayer Referral Reason: Disease management Case Type: Chronic [...] disease: Father. Parkinson' (more content not included)... Normal [facility] Plan of Care - PT/OT/Speecho n 06-07-2023 Plan of Care - PT/OT/Speech [id number] #1.00TIFF Normal [facility] Retail - Clinical Noteon Retail - Clinical Note [id number] #1.00TIFF Normal [facility] Discharge Note - PTon 2023 Discharge Note - PT [id number] #1.00TIFF Normal [facility] Patient Correspondenceon Patient Correspondence [id number] 6#1.00TIFF [facility] Consent for Treatmenton 05-11 Consent for Treatment [id number] #1.00TIFF [facility] Consultation Noteon 05-22-19 Consultation Note Patient: OSIRIS HERRERA Age: 77 [...] tab(s), Oral, Daily, 90 tab(s), Refill(s) 4, [facility]/pharmacy #[id number], 164, cm, 01/09/23 16:01:00 EDT, Height/Length Dosing, 86.6, kg, 01/09/23 16:01:00 EDT, Weight Dosing [facility] Prescription: [facility] Prescription, See Instructions, 1 EA, 0, Wheelchair, Supply Narcan 4 mg/0.1 mL nasal spray: 4 mg, Nasal, As Directed, for suspected overdose symptoms, # 1 kit(s), Refills(s) 0, Pharmacy: [facility]/pharmacy #6177, 168, cm, 07/11/22 15:36:00 EDT, Height/Length Dosing, 90, kg, 07/11/22 15:36:00 EDT, Weight Dosing Stiolto Respimat 2.5 mcg-2.5 mcg inhalation aerosol: = 2 puff(s), Inhalation, q24hr, # 2 EA, Refills(s) 0, samples given to patient (Rx) acetaminophen-oxycod one 325 mg-5 mg Tab: 1 tab(s), Oral, BID, 60 tab(s), Refill(s) 0, [facility]/pharmacy #6177, 169, cm, 04/18/23 14:16:00 EST, Height/Length Dosing, 86.3, kg, 04/18/23 14:16:00 EST, Weight Dosing albuterol HFA 90 mcg/inh MDI: 2 puff(s), Inhalation, q4hr for wheezing, 1 EA, Refill(s) 11, [facility]pharmacy [facility][id number], 170, cm, 07/08/20 10:28:00 EDT, Height/Length Dosing, 91.8, kg, 07/08/20 10:28:00 EDT, Weight Dosing albuterol-ipratropiu m Inh Lizzeth 3 mL UD: 3 mL, NEB, QID Wheezing, 120 EA, Refill(s) 11, [facility]/pharmacy #6177, 165, cm, 02/26/21 14:54:00 EST, Height/Length Dosing, 88.6, kg, 02/26/21 14:54:00 EST, Weight Dosing amLODIPine 5 mg Tab: 5 mg = 1 tab(s), Oral, Daily, # 90 tab(s), Refills(s) 4, [id number] 169, cm, 03/31/23 13:47:00 EST, Height/Length Dosing, 83.6, kg, 03/31/23 13:47:00 EST, Weight Dosing gabapentin 100 mg Cap: 200 mg = 2 cap(s), Oral, TID, # 180 cap(s), Refills(s) 11, [facility], 169, cm, 03/31/23 13:47:00 EST, [...] Daily, # 90 cap(s), Refills(s) 4, [id number], 169, cm, 03/31/23 13:47:00 EST, Height/Length Dosing, 83.6, kg, 03/31/23 13:47:00 EST, Weight Dosing triamcinolone Top 0.1% Crm 15 gram: 1 elva, Topical, BID, 30 gram, Refill(s) 11, [facility], 164, cm, 01/09/23 16:01:00 EDT, Height/Length Dosing, 86.6, kg, 01/09/23 16:01:00 EDT, Weight Dosing Documented Medications Documented Dulcolax Tab-EC: 2-3 tabs, Oral, Daily, adjusts for constipation concerns, Refills(s) 0 Misc Medication: 2 tab(s), Oral, BID, Gagandeep gets from Dr. 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 / SNOMED CT 1622998459 / Confirmed Bilateral hearing loss / SNOMED CT 400405298 / Confirmed COPD exacerbation / SNOMED CT 090337623 / Confirmed DDD (degenerative disc disease), cervical / SNOMED CT 928639130 / Confirmed Dependent for transportation / SNOMED CT 465381491 / Confirmed Diaphragm paralysis / SNOMED CT 613891434 / Confirmed Edema / SNOMED CT 238656576 / Confirmed Elevated diaphragm / SNOMED CT 854774838 / Confirmed Emphysema/COPD / SNOMED CT 4720443 / Confirmed Enrolled in chronic care management / SNOMED CT 782890985 / Confirmed Former smoker / SNOMED CT 30212467 / Confirmed Generalized osteoarthritis / SNOMED CT 669739777 / Confirmed GERD (gastroesophageal reflux disease) / SNOMED CT 843281652 / Confirmed History of stroke / SNOMED CT 4319518116 / Confirmed (more content not included)... Normal [facility] Comment on above: Result Comment: Elec tronically Signed By: Jimenez BANSAL, Crow Perez\.br\Date and Time Signed: 05/22/23 11:27 EDT Legal Correspondence Officeo n 05-22-2023 Legal Correspondence Office [id number] 6#1.00TIFF [facility] Office/Clinic Note-Physician on 05-22-2023 Office/Clinic Note-Physician [id number] 2#1.00TIFF [facility] Patient Correspondenceon Patient Correspondence [id number] 0#1.00TIFF [facility] Patient Correspondence [id number] 3#1.00TIFF [facility] Patient Correspondence [id number] 5#1.00TIFF Normal [facility] Patient Correspondence [id number] 7#1.00TIFF Normal [facility] Patient History Officeon Patient History Office [id number] 4#1.00TIFF Normal [facility] Plan of Care - PT/OT/Speecho n 05-03-2023 Plan of Care - PT/OT/Speech [id number] #1.00TIFF Normal [facility] Population Healthon 04-28-19 Population Health Case Information Case Priority: None Programs: -- Referral Source: Blocklayer Referral Reason: Disease management Case Type: Chronic [...] Parkinson's disease: (more content not included)... Normal [facility] Consultation Noteon 04-27-19 Consultation Note [id number] #1.00TIFF [facility] Family Medicine Office/Clini c Noteon 04-21-2023 Family [...] on the (more content not included)... Normal [facility] Comment on above: Result Comment: Elec tronically Signed By: Dakotah Gallardo DO\Date and Time Signed: 04/21/23 18:28 EST Physician Referralon 024 Physician Referral [id number] 8#1.00TIFF Normal [facility] Ambulatory Visit Summaryon 0 04-18-2023 Ambulatory Visit [...] mcg inhalation aerosol) omeprazole (omeprazole 20 mg Cortez-DR) triamcinolone topical (triamcinolone Top 0.1% Crm 15 [...] AM EST With: Dakotah Gallardo DO Where: [facility] [address] [place] [address]-\.br\ Someone Will Contact You Regarding These Appointments\.br\ [facility] External Ambulatory Referral, Physical Therapy, at [facility], 04/18/23 15:25:00 EST, S/P knee replacement\.br\ Medications\.br\ [...] for choosing us for your care.\.br\ \.br\ [facility] 04-05-19 [facility] Case Information Case Priority: None Programs: -- Referral Source: Blocklayer Referral Reason: Disease management Case Type: Chronic [...] Primary ericka (more content not included)... Normal [facility] JUSTEN w/Reflex if POSon 2023 Nuclear Ab Ql (S) Negative Invalid Interpretation Code Negative [facility] Comment on above: Result Comment: Perf ormed at: [facility] [id number] PhD Virgen Pineda Performed By: #### 1 2048592, 85635075, 9911221, 8152641, 7396059, 14047085, 76950275, 3595709, 7950739, 56855055, 257076664 ####[address] [place] [address] Methylmalonic Acidon 024 Methylmalonate [Moles/Vol] 456 nmol/L High 0-378 [facility] Comment on above: Result Comment: This test was developed and its performance characteristics determined by [facility]. It has not been cleared or approved by the Food and Drug Administration. Performed at: [facility] [address] [place], [place] [id number] MD Dominick London Performed By: #### 1 9061656, 05062777, 6260368, 7384426, 6200220, 74801026, 71731532, 4344366, 3166844, 38121659, 959507499 ####[facility] [address] [place] [address] SPEon 04-04-2023 Albumin [Mass/Vol] 3.9 g/dL Invalid Interpretation Code 2.9-4.4 [facility] Comment on above: Performed By: #### 1 6134678, 43699022, 2278412, 7540346, 9455250, 09787474, 62257542, 6294681, 5172364, 11032683, 182115221 ####[address] [place] [address] Albumin/Globulin [Mass ratio] 1.1 {ratio} Invalid Interpretation Code 0.7-1.7 [facility] Comment on above: Performed By: #### 1 3710646, 66229205, 6385767, 8967445, 3972526, 68628103, 58489623, 0941637, 7228629, 83770941, 361660960 ####[facility] [address] [place] [address] Alpha 1 globulin Elph [Mass/Vol] 0.3 g/dL Invalid Interpretation Code 0.0-0.4 [facility] Comment on above: Performed By: #### 1 2237317, 60137719, 0252191, 5236621, 8897845, 80081403, 33048467, 1868811, 9832659, 89609295, 583758635 ####[facility] [address] [place] [address] Alpha 2 globulin Elph [Mass/Vol] 0.8 g/dL Invalid Interpretation Code 0.4-1.0 [facility] Comment on above: Performed By: #### 1 9352153, 69850042, 8415954, 1265473, 0102720, 32879574, 97733212, 5957713, 4427055, 25234849, 835264237 ####[facility] [address] [place] [address] Beta globulin Elph [Mass/Vol] 1.1 g/dL Invalid Interpretation Code 0.7-1.3 [facility] Comment on above: Performed By: #### 1 5889662, 83193361, 3042937, 3267774, 0351665, 40992969, 42518940, 0405748, 9609498, 13319933, 533357880 ####[facility] [address] [place] [address] Gamma globulin Elph [Mass/Vol] 1.5 g/dL Invalid Interpretation Code 0.4-1.8 [facility] Comment on above: Performed By: #### 1 3938845, 11292713, 8281325, 5889975, 2042866, 91083933, 29891373, 2972769, 5405317, 45239695, 836227067 ####[address] [place] [address] Globulin (S) [Mass/Vol] 3.6 g/dL Invalid Interpretation Code 2.2-3.9 [facility] Comment on above: Performed By: #### 1 3845997, 90574678, 1240670, 2749123, 2144223, 12093088, 04113027, 2568087, 0088508, 75431099, 094084501 ####[facility] [address] [place] [address] Laboratory comment Erasmo (Report) Comment Invalid Interpretation Code [facility] Comment on above: Result Comment: Prot ein electrophoresis scan will follow via computer, mail, or manager shift delivery. Performed By: #### 1 0120151, 54918232, 9139831, 0240837, 8216564, 49293983, 22025656, 6453252, 6364314, 35078915, 645318175 ####[facility] [address] [place] [address] Protein [Mass/Vol] 7.5 g/dL Invalid Interpretation Code 6.0-8.5 [facility] Comment on above: Performed By: #### 1 3181075, 97886710, 3450973, 0729494, 6037176, 57938962, 54082540, 5015359, 1811338, 10075786, 138065543 ####[facility] [address] [place] [address] Protein Fractions [Interp] Comment Invalid Interpretation Code [facility] Comment on above: Result Comment: The SPE pattern appears unremarkable. Evidence of monoclonal protein is not apparent. Performed at: [facility] [id number] PhD Virgen Pineda Performed By: #### 1 8906342, 18990537, 6009483, 4050682, 3268332, 95378479, 25584984, 6137677, 3768936, 04583347, 005954342 ####[facility] [address] [place] [address] Protein.monoclonal Elph [Mass/Vol] Not Observed Invalid Interpretation Code Not Observed [facility] Comment on above: Performed By: #### 1 9068210, 55395192, 7056456, 5803146, 6601563, 41047118, 88826462, 2969785, 3553026, 15352172, 704707977 ####[facility] [address] [place] [address] Family Medicine Office/Clini c Noteon 04-03-2023 Family Medicine Office/Clinic Note Chief Complaint F/U HPI Staff Patient here today with her daughter Aaron. back and hip pain./ OMT Patient requesting wheelchair/ Proposed on med list Patient also asking for possible increase of oxcycodone since taking a lot of ibuprofen lately JOE 11/04/22 Labs 08/18/22 Patient is here for [...] I h (more content not included)... Normal [facility] Comment on above: Result Comment: Elec tronically Signed By: Dakotah Gallardo DO\Date and Time Signed: 04/03/23 13:35 EST CHEMISTRYOrdered [...] (Bld) [Mass fraction] 5.5 % Normal <=5.9% [facility] ChemAutoSS CMPon 03-31-2023 Albumin [Mass/Vol] 4.3 g/dL Normal 3.3-5.0 [facility] Comment on above: Performed By: #### 1 6335723, 13274733, 8449761, 2262266, 7365615, 79668369, 57236121, 8681551, 9659939, 08276261, 178728850 ####[facility] [address] [place] [address] Albumin/Globulin [Mass ratio] 1.2 {ratio} Normal 1.1-2.2 [facility] Comment on above: Performed By: #### 1 9336182, 13201162, 7765923, 7055550, 1340600, 40231300, 66530625, 9616939, 2387789, 01602231, 526025418 ####[facility] [address] [place] [address] Alk Phos 71 Int._Unit/L Normal 21-98 [facility] Comment on above: Performed By: #### 1 5930188, 89011565, 0602698, 4101954, 4264150, 12648115, 14281782, 6596338, 6609729, 58206640, 066482842 ####[facility] [address] [place] [address] ALT 14 Int._Unit/L Normal 6-46 [facility] Comment on above: Performed By: #### 1 1144277, 19696746, 9086501, 7387826, 0270521, 20861437, 32565719, 3723105, 3787870, 74237882, 060283056 ####[facility] [address] [place] [address] Anion gap [Moles/Vol] 13 mmol/L Normal 6-16 [facility] Comment on above: Performed By: #### 1 0213219, 48935495, 9046074, 8812134, 7107839, 72764558, 88365859, 7873194, 1593690, 50217451, 004227459 ####[facility] [address] [place] [address] AST 18 Int._Unit/L Normal 5-43 [facility] Comment on above: Performed By: #### 1 6206200, 33693074, 7726933, 9567317, 1637980, 03154804, 09986915, 1088110, 3793807, 71068956, 337107367 ####[facility] [address] [place] [address] Bili Total 0.3 mg/dL Normal 0.0-1.1 [facility] Comment on above: Performed By: #### 1 3686179, 56911076, 4346449, 2534529, 0674137, 50292389, 77102515, 0475572, 4623792, 14922426, 319399511 ####[facility] [address] [place] [address] BUN/Creat Ratio 22 No Units High 10-20 [facility] Comment on above: Performed By: #### 1 1738375, 94029299, 0363864, 2032590, 3748848, 31021386, 24762487, 1855649, 1602835, 85898156, 307636246 ####[facility] [address] [place] [address] Calcium [Mass/Vol] 9.2 mg/dL Normal 8.9-11.1 [facility] Comment on above: Performed By: #### 1 5464539, 13157112, 5875962, 0196606, 4215199, 52700873, 08622968, 6070693, 2567917, 97496995, 537910190 ####[facility] [address] [place] [address] Chloride [Moles/Vol] 97 mmol/L Low 101-111 [facility] Comment on above: Performed By: #### 1 3430323, 55418117, 9400022, 4608143, 3909175, 04546011, 61809165, 9818901, 2024265, 71303083, 618739568 ####[facility] [address] [place] [address] CO2 [Moles/Vol] 33 mmol/L High 21-31 [facility] Comment on above: Performed By: #### 1 1649231, 34605040, 5301088, 4058813, 2571817, 19911279, 93029547, 7081436, 8923657, 68020539, 137272459 ####[facility] [address] [place] [address] Creatinine [Mass/Vol] 1.1 mg/dL Normal 0.5-1.3 [facility] Comment on above: Performed By: #### 1 4391972, 06910809, 7588523, 5346534, 2834286, 17325299, 95156926, 7248526, 7256621, 12372568, 679290669 ####[facility] [address] [place] [address] Globulin (S) [Mass/Vol] 3.5 g/dL Normal 1.4-4.0 [facility] Comment on above: Performed By: #### 1 9169781, 58435124, 0368977, 2486148, 3414398, 91662483, 51543785, 9986846, 7322054, 10494684, 630238634 ####[facility] [address] [place] [address] Glucose [Mass/Vol] 105 mg/dL Normal 55-199 [facility] Comment on above: Performed By: #### 1 8071945, 46703956, 9793093, 0575385, 0108177, 44372675, 94851195, 2006109, 2528250, 93553708, 598463080 ####[facility] [address] [place] [address] Potassium [Moles/Vol] 4.4 mmol/L Normal 3.5-5.3 [facility] Comment on above: Performed By: #### 1 6236947, 62045142, 3120677, 2049630, 1841858, 29131318, 25197943, 8261543, 6145600, 85764724, 444406809 ####[facility] [address] [place] [address] Protein [Mass/Vol] 7.8 g/dL Normal 6.0-7.8 [facility] Comment on above: Performed By: #### 1 7669775, 13003782, 1188149, 1618543, 9265214, 21981196, 55379222, 2398763, 5840972, 69283105, 223157973 ####[facility] [address] [place] [address] Sodium [Moles/Vol] 139 mmol/L Normal 135-145 [facility] Comment on above: Performed By: #### 1 6377017, 32875334, 6945698, 3519378, 5685490, 44721402, 39684198, 4101937, 2159213, 74716921, 427341537 ####[facility] [address] [place] [address] Urea nitrogen [Mass/Vol] 24 mg/dL High 5-21 [facility] Comment on above: Performed By: #### 1 7218688, 58600449, 6871504, 9020259, 4610109, 23156743, 17163889, 1125581, 1482172, 86548909, 322604788 ####[facility] [address] [place] [address] CRPon 03-31-2023 CRP [Mass/Vol] mg/L Normal <=1.9 [facility] Comment on above: Performed By: #### 1 7520774, 78531836, 9330385, 2195025, 6554572, 92523692, 40857703, 8812884, 4099079, 84767442, 769706946 ####[facility] [address] [place] [address] Consent for Treatmenton 03-13 Consent for Treatment [id number] #1.00TIFF Normal [facility] Folateon 03-31-2023 Folate Lvl 16.5 ng/mL Normal >=6.7 [facility] Comment on above: Performed By: #### 1 7440779, 44829931, 5390221, 5344403, 6520424, 05485058, 65126201, 5418155, 9728756, 39791971, 708544205 ####[facility] [address] [place] [address] HEMATOLOGYOrdered By: Jose Corcoran on 03-31-2023 ESR (Bld) [Velocity] 20 mm/h Normal 0 - 34 mm/hr [facility] HemeAutoSS SelA0ady 03-31-2023 HbA1c (Bld) [Mass fraction] 5.5 % Normal <=5.9 [facility] Comment on above: Performed By: #### 1 4240449, 57426539, 5083640, 6214896, 5264168, 26132401, 96296267, 5867131, 9431522, 09925563, 339617193 ####[facility] [address] [place] [address] Medication Consenton 024 Medication Consent [id number] #1.00TIFF Normal [facility] Physician Orderon 03-31-2023 Physician Order [id number] #1.00TIFF Normal [facility] Sed Rate Automatedon 024 ESR (Bld) [Velocity] 20 mm/h Normal 0-34 [facility] Comment on above: Performed By: #### 1 2780963, 56518426, 9982314, 4485518, 6851417, 50643984, 69816913, 9057133, 9664026, 72066876, 942326707 ####[facility] [address] [place] [address] Thyroid IIon 03-31-2023 TSH Qn 2.13 m[IU]/L Normal 0.34-5.60 [facility] Comment on above: Performed By: #### 1 8867817, 29465758, 3345362, 5168340, 8272489, 59562971, 46016849, 1794594, 4779249, 59861988, 607917102 ####[facility] [address] [place] [address] FTI 9.00 ng/dL Normal 5.90-13.10 [facility] Comment on above: Performed By: #### 1 4238860, 97092702, 1203889, 9014542, 8673572, 64533423, 46561141, 1932239, 9073702, 69995891, 490620340 ####[facility] [address] [place] [address] T4 8.1 microgram/dL Normal 4.6-9.1 [facility] Comment on above: Performed By: #### 1 4651593, 72449358, 7511777, 9078175, 5200809, 19743989, 17984190, 0739640, 4582336, 75298870, 402210861 ####[facility] [address] [place] [address] T3 Uptake 44.5 % Normal 32.0-48.4 [facility] Comment on above: Performed By: #### 1 1081409, 73469170, 9994469, 7264462, 4516098, 18687548, 61681250, 0178693, 9086832, 87426328, 608910420 ####[facility] [address] [place] [address] Vit B12on 03-31-2023 Cobalamin (Vitamin B12) [Mass/Vol] 176 pg/mL Normal 50-1500 [facility] Comment on above: Performed By: #### 1 0101278, 02835268, 6498193, 5364017, 8420110, 96317529, 75369628, 4519313, 8190390, 13984623, 103336098 ####[facility] [address] [place] [address] eGFRon 03-31-2023 eGFR 51 mL/min/1.73 m2 Low >=59 [facility] Comment on above: Order Comment: Order added by Discern Expert. Performed By: #### 1 0058362, 41918291, 3405421, 7315082, 4366790, 41589679, 03568202, 3783379, 3241036, 49024413, 721470955 ####[facility] [address] [place] [address] Family Medicine Office/Clini c Noteon 03-24-2023 Family [...] of clutter to prevent tripping and/or falling. [place] Advance Directives reviewed, on file in chart. [...] as direc (more content not included)... Normal [facility] Comment on above: Result Comment: Elec tronically Signed By: CHAI WOODALL CNP\.br\Date and Time Signed: 03/24/23 11:27 EST\.br\Electronically Co-Signed By: Juan Meyer LPN\.br\Date and Time Co-Signed: 03/24/23 10:33 EST Population Health 03-08-20 23 Population Health Case Information Case Priority: None Programs: -- Referral Source: Blocklayer Referral Reason: Disease management Case Type: Chronic [...] to continue (more content not included)... Normal [facility] Patient Educationon 03-07-20 Patient Education Gastroenterology Obesity, Adult Obesity is [...] ovarian syndrome (PCOS). ? Binge-eating disorder. ? [place] syndrome. ? Taking certain medicines, such as [...] food choices, such as grocery stores and [employer] markets. What are the signs or symptoms? The [...] you have to (more content not included)... [facility] Immunization Recordson 02-09 Immunization Records [id number] 9#1.00TIFF [facility] Population Healthon 01-14-20 Population Health Case Information Case Priority: None Programs: -- Referral Source: Blocklayer Referral Reason: Disease management Case Type: Chronic [...] Monitoring Consent Ag (more content not included)... [facility] Consent for Flu Vaccineon Consent for Flu Vaccine [id number] #1.00TIFF [facility] Population Healthon 01-13-20 23 Population Health Case Information Case Priority: None Programs: -- Referral Source: Blocklayer Referral Reason: Disease management Case Type: Chronic [...] to contin (more content not included)... Normal [facility] Screenson 01-10-2023 Screens [id number]# 1.00TIFF Normal [facility] Ambulatory Visit Summaryon 1 Ambulatory Visit Summary OSIRIS HERRERA :1945 Visit Date:01/09/2023 Ambulatory Visit Instructions [...] AM EST With: Dakotah Gallardo DO Where: [facility] Normal [address] [place] [address]-\.br\ Medications\.br\ What How Much When Why Instructions\.br\ [...] and if necessary, the need for mo [facility] Consultation Noteon 12-03-19 Consultation Note [id number] 9#1.00CD:127 Normal [facility] Family Medicine Office/Clini c Noteon 11-04-2022 Family Medicine [...] the future *ching more active at the [employer] center, playing cards, meeting friends for lunch [...] Pain Inven (more content not included)... Normal [facility] Comment on above: Result Comment: Elec tronically Signed By: Dakotah Gallardo DO.peng\Date and Time Signed: 11/04/22 17:16 EDT Physician Referralon 023 Physician Referral [id number] #1.00CD:127 Normal [facility] Physician Referralon 023 Physician Referral [id number] 1#1.00CD:127 Normal [facility] XR Ankle 3+ Views Righton XR Ankle [...] mGy = na DAP = na Normal [facility] XR Knee Complete 4+ Views Ri ton [...] in mGy = na DAP = na [facility] XR Tib/Fib Right 2 Viewon XR Tib/Fib [...] in mGy = na DAP = na [facility] EMG Electromyographyon 10-25 EMG Electromyography [id number]# 1.00CD:127 [facility] Consent for Treatmenton 10-11 Consent for Treatment [id number] #1.00CD:127 [facility] Physician Orderon 10-24-2022 Physician Order [id number] #1.00CD:127 [facility] Ambulatory Visit Summaryon 0 09-16-2022 Ambulatory Visit [...] mcg inhalation aerosol) omeprazole (omeprazole 20 mg Cap-) triamcinolone topical (triamcinolone topical 0.1% cream) Procedures [...] BANSAL, Reyes Sandoval Where: [facility] [address] [place] [address]-\.br\ Medications\.br\ What How Much When Why Instructions\.br\ [...] Mouth Every day Covering for \.br\ Unchanged [facility] Prescription (nebulizer supplies) See instructions nebulizer supplies dx J44.9 \.br\ Unchanged naloxone (Narcan 4 mg/ 0.1 mL nasal spray) 4 Milligram Nasal Inhalation As Directed for suspected overdose symptoms \.br\ Unchanged Non-Formulary Medication ([facility] Medication) 2 Tablets By Mouth 2 times [...] Screening mammogram, encounter for\.br\ Urinary urgency\.br\ \.br\ [facility] Medicine Office/Clini c Noteon 09-16-2022 Family Medicine [...] desire to begin working out at the [facility] since her last appt, was evaluated in the ED for chest pain it was initially determined that the patient was going to be admitted for observation there was a delay in getting the patient upstairs The patient became frustrated with the process and struggled to get information from clinical staff and eventually decided to leave [place] Incidentally, she mentions that the nursing staff [...] testosterone: No qualifying data available. Future Appointments [facility] CATERINA Marcum Appt. Date: 09/21/2022 10:15 AM Scheduled Provider: Gary BANSAL, Reyes Diaz [address] [facility] [address] [place], [address] FT.Neurology Clinic Appt. Date: 10/24/2022 1:00 PM Scheduled Provider: [facility] Room 2 Phone: -- Fax: -- ROS [...] her handle communicat (more content not included)... [facility] Comment on above: Result Comment: Elec tronically Signed By: Dakotah Gallardo DO\Date and Time Signed: 09/16/22 18:04 EDT Consent for Treatmenton 08-12 Consent for Treatment [id number] 1#1.00CD:127 Normal [facility] Consultation Noteon 09-06-19 Consultation Note Patient: OSIRIS [...] 90 tab(s), Refill(s) 3, [facility] , [id number], cm, 01/13/22 10:18:00 EDT, Height/Length Dosing, 89.3, kg, 01/13/22 10:18:00 EDT, Weight Dosing Narcan 4 mg/0.1 mL nasal spray: 4 mg, Nasal, As Directed, for suspected overdose symptoms, # 1 kit(s), Refills(s) 0, [facility], 168, cm, 07/11/22 15:36:00 EDT, Height/Length Dosing, 90, kg, 07/11/22 15:36:00 EDT, Weight Dosing Percocet 5 mg-325 mg oral tablet: 1 tab(s), Oral, BID, 60 tab(s), Refill(s) 0, [facility] 168, cm, 08/23/22 10:38:00 EDT, Height/Length Dosing, 90.8, kg, 08/18/22 19:15:00 EDT, Weight Dosing Percocet 5 mg-325 mg oral tablet: 1 tab(s), Oral, BID, 60 tab(s), Refill(s) 0, [facility], 168, cm, 08/23/22 10:38:00 EDT, Height/Length Dosing, 90.8, kg, 08/18/22 19:15:00 EDT, Weight Dosing Stiolto Respimat 2.5 mcg-2.5 mcg inhalation aerosol: = 2 puff(s), Inhalation, q24hr, # 2 EA, Refills(s) 0, samples given to patient (Rx) albuterol HFA 90 mcg/inh MDI: 2 puff(s), Inhalation, q4hr for wheezing, 1 EA, Refill(s) 11, [facility]/pharmacy #6177, 170, cm, 07/08/20 10:28:00 EDT, Height/Length Dosing, 91.8, kg, 07/08/20 10:28:00 EDT, Weight Dosing albuterol-ipratropiu m Inh Lizzeth 3 mL UD: 3 mL, NEB, QID Wheezing, 120 EA, Refill(s) 11, [facility]/pharmacy #6177, 165, cm, 02/26/21 14:54:00 EST, Height/Length Dosing, 88.6, kg, 02/26/21 14:54:00 EST, Weight Dosing amLODIPine 5 mg Tab: 5 mg = 1 tab(s), Oral, Daily, # 90 tab(s), Refills(s) 3, Pharmacy: [facility]/pharmacy #6177, 168, cm, 02/28/22 16:04:00 EST, Height/Length Dosing, 89.7, kg, 02/28/22 16:04:00 EST, Weight Dosing gabapentin 100 mg Cap: 200 mg = 2 cap(s), Oral, BID, # 120 cap(s), Refills(s) 11, Pharmacy: [facility]/pharmacy #6177, 168, cm, 08/12/22 9:51:00 EDT, Height/Length Dosing, 86.9, kg, 08/12/22 9:51:00 EDT, Weight Dosing nebulizer supplies: nebulizer supplies, See Instructions, 1 EA, 11, nebulizer supplies dx J44.9, [facility], Supply, 158, cm, 12/27/19 11:56:00 EDT, Height/Length Dosing, 88.6, kg, 12/27/19 11:56:00 EDT, Weight Dosing omeprazole 20 mg Cap-DR: 20 mg = 1 cap(s), Oral, Daily, # 90 cap(s), Refills(s) 4, [facility], 165, cm, 05/30/22 11:07:00 EDT, Height/Length Dosing, 87.6, kg, 05/30/22 11:07:00 EDT, Weight Dosing triamcinolone topical 0.1% cream: 1 elva, Topical, BID, 30 gm, Refill(s) 5, [facility]/pharmacy #6177, 165.7, cm, 12/09/20 14:23:00 EDT, Height/Length Dosing, 72.7, kg, 12/09/20 14:23:00 EDT, Weight Dosing Documented Medications Documented Dulcolax Tab-EC: 2-3 tabs, Oral, Daily, adjusts for constipation concerns, Refills(s) 0 Misc Medication: 2 tab(s), Oral, BID, Hyrokirit gets from Dr. 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 Normal [facility] Comment on above: Result Comment: Elec tronically Signed By: Marilu Cornell PA-C\.br\Date and Time Signed: 09/05/22 13:13 EDT\.br\Electronically Co-Signed By: Jimenez BANSAL, Crow Perez\.br\Date and Time Co-Signed: 09/12/22 15:19 EDT Office/Clinic Note-Physician on 09-05-2022 Office/Clinic Note-Physician [id number] 65#1.00CD:127 [facility] Orders Officeon 09-05-2022 Orders Office [id number] 84#1.00CD:127 Normal [facility] Patient Correspondenceon Patient Correspondence [id number] 75#1.00CD:127 Normal [facility] Patient History Officeon Patient History Office [id number] 87#1.00CD:127 Normal [facility] Physician Orderon 09-05-2022 Physician Order [id number] #1.00CD:127 Normal [facility] Physician Order [id number] 34#1.00CD:127 Normal [facility] Pharmacy Clinical Interventi ons - Texton [...] 1000 mg= 2 tab(s), Oral, q6hr, PRN [facility] Consultation Noteon 06-14-20 23 Consultation Note [id number]# 1.00CD:127 [facility] Consent for Procedure/Surger yon 08-23-2022 Consent for Procedure/Surgery [id number] 3#1.00CD:127 [facility] Consent for Treatmenton 08-11 Consent for Treatment [id number] 4#1.00CD:127 [facility] Discharge Instructionson Discharge Instructions [id number] 1#1.00CD:127 [facility] IntraOperative Documentson 0 08-23-2022 IntraOperative Documents [id number] 7#1.00CD:127 [facility] Main OR Intraoperative Recor don 08-23-2022 Main OR Intraoperative Record IntraOp Document Type FTPM Summary Primary Physician: Crow Gaona MD Finalized Date/Time: 08/23/22 11:20:30 Pt. Name: JAVIEROSIRIS/Sex: 1945 Female Med Rec #: [id number] Physician: Crow Gaona MD Financial #: [id number] Pt. Type: P Room/Bed: / Admit/Disch: 08/23/22 10:28:39 - Institution: Case Times FTPM Entry 1 Patient Times In Room 08/23/22 11:13:00 Out Room 08/23/22 11:20:00 Procedure Times Start 08/23/22 11:16:00 Stop 08/23/22 11:19:00 Anesthesia Times Last Modified By: Leydi Ferrell RN 08/23/22 11:19:35 Case Attendance FTPM Entry 1 Entry 2 Entry 3 Case Attendee Crow Gaona MD, RN, Leydi Polo RN, Kathy Ojeda Role Performed Surgeon - Primary Boiler Attendant - Primary Scrub - Primary Time In 08/23/22 11:13:00 08/23/22 11:13:00 08/23/22 11:13:00 Time Out 08/23/22 11:20:00 08/23/22 11:20:00 08/23/22 11:20:00 Procedure TRANSFORAMINAL EPIDURAL TRANSFORAMINAL EPIDURAL TRANSFORAMINAL EPIDURAL STEROID INJECTIO(Right) STEROID INJECTIO(Right) STEROID INJECTIO(Right) Comments Last Modified By: Leydi Ferrell RN, RN, Leydi Myrick RN 08/23/22 11:19:36 08/23/22 11:19:36 08/23/22 11:19:36 Entry 4 Entry 5 Case Attendee Blake MARTINEZ(R), Diana Rodriguez Role Performed Pearl Stringer Pearl Stringer Time In 08/23/22 11:13:00 08/23/22 11:13:00 Time Out 08/23/22 11:20:00 08/23/22 11:20:00 Procedure TRANSFORAMINAL EPIDURAL TRANSFORAMINAL EPIDURAL STEROID INJECTIO(Right) STEROID INJECTIO(Right) Comments Last Modified By: Leydi Ferrell RN, RN, Madison A 08/23/22 11:19:36 08/23/22 11:19:36 Perioperative Protocols FTPM [...] Antibiotic No Time Out Leydi Ferrell RN, Myers RN, Jimenez Arce MD, Crow Perez, Blake RT(R), Josué Amor Laura [...] (CONTRAST ALLERGY) Primary Procedure Yes Primary Surgeon Crow Gaona MD Start 08/23/22 11:16:00 Stop 08/23/22 11:19:00 Anesthesia [...] and tissue Entry 1 Skin Integrity Intact, [place], Warm, and Skin Abnormality No Dry Outcomes [...] STEROID INJECTIO(Right) (more content not included)... Normal [facility] Main OR Preoperative Recordo n 08-23-2022 Main OR Preoperative Record Holding Area Document Type FTPM Summary Primary Physician: Crow Gaona MD Finalized Date/Time: 08/23/22 11:40:36 Pt. Name: OSIRIS HERRERA /Sex: 1945 Female Med Rec #: [id number] Physician: Crow Gaona MD Financial #: [id number] Pt. Type: P Room/Bed: / Admit/Disch: 08/23/22 [...] n/a Date/Time: 08/23/22 10:00:00 Results Reviewed Root fatimah Personal Items: Cataract Lens Implant, Comments: Glasses, Jewelry Personal Items 2 rings. Patient has Complaints of Pain: Yes Comment: hearing aids but decides not keep them and hands them to daughter for safe keeping. Pain Comment: 8/10 lower back/butt Operative Site Yes and right leg Marking: Marked By: operative site marked Availability Equipment, X-Ray by Dr. gaona Verified: Does Patient Smoke No Patient states Yes Comment - Adult Melida-daughter postop adult Supervision supervision available Case Cancelled in No Holding Area see comments below for reason Last Modified By: Teena Robles RN 08/23/22 11:40:34 Finalized By: Teena Robles RN Document Signatures Signed By: Teena Robles RN 08/23/22 10:45 Teena Robles RN 08/23/22 11:40 Normal [facility] Operative Reporton 3 Operative Report Patient: OSIRIS HERRERA Age: 77 years Sex: Female : 1945 Associated Diagnoses: None Author: Crow Gaona MD Procedure Procedure: Transforaminal Epidural Steroid Injections with [...] Respiratory Rate 12 br/min LOW . Normal [facility] Comment on above: Result Comment: Elec tronically Signed By: Crow Gaona MD\.br\Date and Time Signed: 08/23/22 11:19 EDT [facility] 08-24-19 23 Population Health Case Information Case Priority: None Programs: -- Referral Source: Blocklayer Referral Reason: Disease management Case Type: Chronic [...] Family History Alcoholism: Father. Metastatic cancer: Mother. Katheryn (more content not included)... Normal [facility] CHEMISTRYOrdered By: SYSTEM SYSTEM on 01-13-2022 Anion gap [Moles/Vol] 16 mmol/L Normal 6 - 16 mEq/L [facility] Remisol Calcium [Mass/Vol] 9.2 mg/dL Normal 8.9 - 11.1 mg/dL [facility] Remisol Chloride [Moles/Vol] 99 mmol/L Low 101 - 111 mmol/ L FT Remisol CO2 [Moles/Vol] 28 mmol/L Normal 21 - 31 mmol/L FT Remisol Creatinine [Mass/Vol] 0.8 mg/dL Normal 0.5 - 1.3 mg/dL [facility] Remisol GFR/1.73 sq M.predicted among blacks MDRD (S/P/Bld) [Vol rate/Area] mL/min/1.73 m2 Normal >=59mL/min/1.73 m2 [facility] Chem S GFR/1.73 sq M.predicted among non-blacks MDRD (S/P/Bld) [Vol rate/Area] mL/min/1.73 m2 Normal >=59mL/min/1.73 m2 [facility] Chem S Glucose [Mass/Vol] 109 mg/dL Normal 55 - 199 mg/dL FT Remisol Lactate [Mass/Vol] 1.8 mmol/L Normal 0.5 - 2.2 mmol/L FT Remisol Potassium [Moles/Vol] 3.5 mmol/L Normal 3.5 - 5.3 mmol/L [facility] Remisol Sodium [Moles/Vol] 139 mmol/L Normal 135 - 145 mmol/L FT Remisol Troponin I.cardiac [Mass/Vol] 6.90 pg/mL Low 10.10 - 27.10 pg/mL [facility] Remisol Urea nitrogen [Mass/Vol] 20 mg/dL Normal 5 - 21 mg/dL [facility] Remisol Urea nitrogen/Creatinine [Mass ratio] 25 mg/mg High 10 - 20 [facility] Remisol CHEMISTRYOrdered By: Geovany Pink on 01-13-2022 Natriuretic peptide B (Bld) [Mass/Vol] 23 pg/mL Normal 5 - 80 pg/mL FT HemeManSS COAGULATIONOrdered By: Daisy Lanier on 01-13-2022 aPTT Coag (PPP) [Time] 26.3 s Normal 25.1 - 36.5 second(s) [facility] INR Coag (PPP) [Relative time] 0.9 {INR} Invalid Interpretation Code [facility] PT Coag (PPP) [Time] 9.7 s Normal 9.4 - 1 2.5 second(s) [facility] HEMATOLOGYOrdered By: SYSTEM SYSTEM on 01-13-2022 Basophils/100 WBC (Bld) 1.0 % Normal 0.0 - 2.0 % [facility] HemeAutoSS Basophils/Leukocytes Auto (Bld) [Pure # fraction] 0.1 E9/L Normal 0.0 - 0.2 E9/L [facility]eAutoSS Eosinophils/100 WBC (Bld) 1.1 % Normal 0.0 - 8.0 % [facility] [...] 5.1 E9/L Normal 2.0 - 7.5 E9/L [facility] HemeAutoSS HEMATOLOGYOrdered By: Santhosh Pink on 01-13-2022 Erythrocyte distribution width (RBC) [Ratio] 13.7 % Normal 10.9 - 14.2 % [facility] HemeAutoSS Hematocrit (Bld) [Volume fraction] 39.6 % Normal 34.0 - 46.0 % [facility]eAutoSS Hemoglobin (Bld) [Mass/Vol] 13.1 g/dL Normal 12.0 - 16.0 gm/dL [facility]eAutoSS MCH (RBC) [Entitic mass] 31.9 pg Normal 27.0 - 34.0 pg [facility]eAutoSS MCHC (RBC) [Mass/Vol] 33.0 g/dL Normal 31.4 - 36.0 gm/dL [facility]eAutoSS MCV (RBC) [Entitic vol] 96.5 fL Normal 80.0 - 100.0 fL [facility]eAuto[facility] Platelet mean volume (Bld) [Entitic vol] 8.1 fL Normal 6.4 - 10.8 fL [facility]eAutoSS Platelets (Bld) [#/Vol] 288.0 E9/L Normal 150.0 - 500.0 E9/L [facility] RBC (Bld) [#/Vol] 4.1 E12/L Low 4.3 - 5.9 E12/L [facility]eAuto[facility] WBC corrected for nucl RBC Auto (Bld) [#/Vol] 7.3 E9/L Normal 4.0 - 11.0 E9/L [facility]eAutoSS CHEMISTRYOrdered By: SYSTEM SYSTEM on 09-29-2021 [...] 9.4 mg/dL Normal 8.9 - 11.1 mg/dL [facility] Chloride [Moles/Vol] 96 mmol/L Low 101 - 111 mmol/ L [facility] CO2 [Moles/Vol] 27 mmol/L Normal 21 - 31 mmol/L [facility] Creatinine [Mass/Vol] 0.9 mg/dL Normal 0.5 - 1.3 mg/dL [facility] GFR/1.73 sq M.predicted among blacks MDRD (S/P/Bld) [Vol rate/Area] mL/min/1.73 m2 Normal >=59mL/min/1.73 m2 [facility] Chem S GFR/1.73 sq M.predicted among non-blacks MDRD (S/P/Bld) [Vol rate/Area] mL/min/1.73 m2 Normal >=59mL/min/1.73 m2 [facility] Chem S Globulin (S) [Mass/Vol] 3.3 g/dL Normal 1.4 - 4.0 gm/dL [facility] Glucose [Mass/Vol] 123 mg/dL Normal 55 - 199 mg/dL [facility] Lipase [Catalytic activity/Vol] 40 U/L Normal 13 - 58 unit/L [facility] Potassium [Moles/Vol] 4.2 mmol/L Normal 3.5 - 5.3 mmol/L [facility] Protein [Mass/Vol] 7.2 g/dL Normal 6.0 [...] E12/L Low 4.3 - 5.9 E12/L [facility]eAutoSS WBC corrected for nucl RBC Auto (Bld) [#/Vol] 10.0 E9/L Normal 4.0 - 11.0 E9/L [facility]eAutoSS Initial Visit (Orthopaedic S [facility])on 11-04-2020 Initial Visit (Orthopaedic Surgery) Diagnoses/Problems Assessed [...] 3 View; Status:Hold For - Scheduling; Requested for:[id number]; Laterality : Left Radiologist to Determine Optimal Study : Y What are the patient's signs and symptoms? : pain Xray Knee Complete 4 or more View; Status:Canceled; Laterality : Left Radiologist to Determine Optimal Study : Y What are the patient's signs and symptoms? : pain Primary osteoarthritis of left knee Basic Hinged Knee; Status:Complete; Done: [id number] SocHx: Former smoker Tobacco Use Screening; Status:Complete; Done: [id number] Chief Complaint New Pt c/o Lt knee [...] grammatical areas may persist related to the [employer] Bashir Rivera MD . Active Problems [...] 11/04/2020 8:14 am INDICATION: pain. ACCESSION NUMBER(S): [id number] ORDERING CLINICIAN: BASHIR RIVERA FINDINGS: Left knee three views. Status post cemented total knee replacement components in good position no signs of fracture dislocation or other bony abnormality Electronically signed by: BASHIR RIVERA MD Normal [facility]iology[facility] 11-04-2020 XR Knee 3 Views Normal -[place] [facility] Work Phone: COVID-19 PCRon 11-18-2019 SARS-CoV-2, CHRISTINA Not Detected Normal Not Detected [facility] Comment on above: Result Comment: This nucleic acid amplification test was developed and its performance characteristics determined by [facility]. Nucleic acid amplification tests include PCR and [...] Performed By: #### C VDPCR, CVDSTAT #### [facility] [address] [place] [address] Brian Osiris PRIORITY COVID PROCESSINGon 11-18-2019 Comment Comment Normal [facility] Comment on above: Result Comment: Rece ived Performed By: #### C VDPCR, CVDSTAT #### [facility] [address] [id number] Brian Newell Vital Signs Date Time Vital Sign Value Performing Clinician Facility 07-31-2023 14:53-0400 Blood Pressure Location PRESTON ARGUELLORY [facility] 07-31-2023 14:53-0400 Body temperature 97.88 [degF] PRESTON SAJI [facility] 07-31-2023 14:53-0400 Diastolic blood pressure 70 mm[Hg] PRESTON SAJI [facility] 07-31-2023 14:53-0400 Heart rate 96 /min PRESTON SAJI [facility] 07-31-2023 14:53-0400 Respiratory rate 16 /min PRESTON SAJI [facility] 07-31-2023 14:53-0400 Systolic blood pressure 120 mm[Hg] PRESTON SAJI [facility] 07-17-2023 13:47-0400 Diastolic blood pressure 74 mm[Hg] [employer] [facility] 07-17-2023 13:47-0400 Heart rate 75 /min [employer] [facility] 07-17-2023 13:47-0400 Mean blood pressure 92 mm[Hg] [employer] [facility] 07-17-2023 13:47-0400 Respiratory rate 14 /min [employer] [facility] 07-17-2023 13:47-0400 Systolic blood pressure 128 mm[Hg] Marilu Cornell [facility] 07-04-2023 08:33-0400 Heart rate 81 /min Crow Jimenez [facility] 07-04-2023 08:33-0400 SaO2% (BldA) [Mass fraction] 92 % Crow Jimenez [facility] 07-04-2023 08:33-0400 Diastolic blood pressure 76 mm[Hg] Crow Jimenez [facility] 07-04-2023 08:33-0400 Mean blood pressure 105 mm[Hg] Crow Jimenez [facility] 07-04-2023 08:33-0400 Systolic blood pressure 162 mm[Hg] Crow Jimenez [facility] 07-04-2023 08:33-0400 Respiratory rate 16 /min Crow Jimenez [facility] 07-04-2023 08:29-0400 Diastolic blood pressure 84 mm[Hg] Crow Jimenez [facility] 07-04-2023 08:29-0400 Heart rate 85 /min Crow Jimenez [facility] 07-04-2023 08:29-0400 Respiratory rate 14 /min Crow Jimenez [facility] 07-04-2023 08:29-0400 SaO2% (BldA) [Mass fraction] 96 % Crow Jimenez [facility] 07-04-2023 08:29-0400 Systolic blood pressure 174 mm[Hg] Crow Jimenez [facility] 07-04-2023 07:49-0400 Heart rate 85 /min Crow Jimenez [facility] 07-04-2023 07:49-0400 SaO2% (BldA) [Mass fraction] 94 % Crow Jimenez [facility] 07-04-2023 07:47-0400 Diastolic blood pressure 82 mm[Hg] Crow Jimenez [facility] 07-04-2023 07:47-0400 Mean blood pressure 107 mm[Hg] Crow Jimenez [facility] 07-04-2023 07:47-0400 Systolic blood pressure 157 mm[Hg] Crow Jimenez [facility] 07-04-2023 07:47-0400 Body temperature 97.7 [degF] Crow Jimenez [facility] 07-04-2023 07:46-0400 Respiratory rate 15 /min Crow Jimenez [facility] 03-31-2023 13:43-0500 Blood Pressure Location [facility] 03-31-2023 13:43-0500 Diastolic blood pressure 64 mm[Hg] [facility] 03-31-2023 13:43-0500 Heart rate 74 /min [facility] 03-31-2023 13:43-0500 SaO2% (BldA) [Mass fraction] 88 % [facility] 03-31-2023 13:43-0500 Systolic blood pressure 116 mm[Hg] [facility] 01-09-2023 15:30-0400 Blood Pressure Location [facility] 01-09-2023 15:30-0400 Diastolic blood pressure 70 mm[Hg] [facility] 01-09-2023 15:30-0400 Heart rate 68 /min [facility] 01-09-2023 15:30-0400 Respiratory rate 16 /min [facility] 01-09-2023 15:30-0400 SaO2% (BldA) [Mass fraction] 92 % [facility] 01-09-2023 15:30-0400 Systolic blood pressure 130 mm[Hg] [facility] 11-04-2022 10:20-0400 Blood Pressure Location [facility] 11-04-2022 10:20-0400 Diastolic blood pressure 70 mm[Hg] [facility] 11-04-2022 10:20-0400 Heart rate 78 /min [facility] 11-04-2022 10:20-0400 SaO2% (BldA) [Mass fraction] 90 % [facility] 11-04-2022 10:20-0400 Systolic blood pressure 110 mm[Hg] [facility] 09-16-2022 10:01-0400 Blood Pressure Location [facility] 09-16-2022 10:01-0400 Diastolic blood pressure 60 mm[Hg] [facility] 09-16-2022 10:01-0400 Heart rate 75 /min [facility] 09-16-2022 10:01-0400 SaO2% (BldA) [Mass fraction] 90 % [facility] 09-16-2022 10:01-0400 Systolic blood pressure 100 mm[Hg] [facility] 09-05-2022 12:44-0400 Diastolic blood pressure 76 mm[Hg] Marilu [employer] [facility] 09-05-2022 12:44-0400 Heart rate 76 /min Marilu Cornell [facility] 09-05-2022 12:44-0400 Mean blood pressure 90 mm[Hg] Marilu Cornell [facility] 09-05-2022 12:44-0400 Respiratory rate 12 /min Marilu Cornell [facility] 09-05-2022 12:44-0400 Systolic blood pressure 117 mm[Hg] Marilu Cornell [facility] 08-12-2022 09:46-0400 Blood Pressure Location [facility] 08-12-2022 09:46-0400 Body temperature 98.42 [degF] [facility] 08-12-2022 09:46-0400 Diastolic blood pressure 58 mm[Hg] [facility] 08-12-2022 09:46-0400 Heart rate 62 /min [facility] 08-12-2022 09:46-0400 SaO2% (BldA) [Mass fraction] 91 % [facility] 08-12-2022 09:46-0400 Systolic blood pressure 110 mm[Hg] [facility] 07-22-2022 12:55-0400 Diastolic blood pressure 68 mm[Hg] Marilu Cornell [facility] 07-22-2022 12:55-0400 Heart rate 81 /min Marilu Cornell [facility] 07-22-2022 12:55-0400 Mean blood pressure 89 mm[Hg] Marilu Cornell [facility] 07-22-2022 12:55-0400 Respiratory rate 16 /min Marilu Cornell [facility] 07-22-2022 12:55-0400 Systolic blood pressure 131 mm[Hg] Marilu Cornell [facility] 07-15-2022 11:02-0400 Blood Pressure Location [facility] 07-15-2022 11:02-0400 Body temperature 97.88 [degF] [facility] 07-15-2022 11:02-0400 Diastolic blood pressure 70 mm[Hg] [facility] 07-15-2022 11:02-0400 Heart rate 73 /min [facility] 07-15-2022 11:02-0400 SaO2% (BldA) [Mass fraction] 90 % [facility] 07-15-2022 11:02-0400 Systolic blood pressure 130 mm[Hg] [facility] 07-11-2022 15:24-0400 Blood Pressure Location Basmikel Clinton [facility] 07-11-2022 15:24-0400 Diastolic blood pressure 69 mm[Hg] Basmikel Kangm [facility] 07-11-2022 15:24-0400 Heart rate 78 /min Floresita Kangm [facility] 07-11-2022 15:24-0400 SaO2% (BldA) [Mass fraction] 93 % Floresita Clinton [facility] 07-11-2022 15:24-0400 Systolic blood pressure 104 mm[Hg] Floresita Kangm [facility] 07-04-2022 13:33-0400 Diastolic blood pressure 76 mm[Hg] Marilu Cornell [facility] 07-04-2022 13:33-0400 Heart rate 68 /min Marilu Cornell [facility] 07-04-2022 13:33-0400 Mean blood pressure 97 mm[Hg] Marilu Cornell [facility] 07-04-2022 13:33-0400 Respiratory rate 14 /min Marilu Cornell [facility] 07-04-2022 13:33-0400 Systolic blood pressure 140 mm[Hg] Marilu Cornell [facility] 06-06-2022 14:35-0400 Heart rate 93 /min Crow Jimenez [facility] 06-06-2022 14:35-0400 SaO2% (BldA) [Mass fraction] 93 % Crow Jimenez [facility] 06-06-2022 14:35-0400 Respiratory rate 16 /min Crow Jimenez [facility] 06-06-2022 14:35-0400 Diastolic blood pressure 82 mm[Hg] Crow Jimenez [facility] 06-06-2022 14:35-0400 Mean blood pressure 103 mm[Hg] Crow Jimenez [facility] 06-06-2022 14:35-0400 Systolic blood pressure 143 mm[Hg] Crow Jimenez [facility] 06-06-2022 14:31-0400 Diastolic blood pressure 79 mm[Hg] Crow Jimenez [facility] 06-06-2022 14:31-0400 Heart rate 96 /min Crow Jimenez [facility] 06-06-2022 14:31-0400 Respiratory rate 16 /min Crow Jimenez [facility] 06-06-2022 14:31-0400 SaO2% (BldA) [Mass fraction] 93 % Crow Jimenez [facility] 06-06-2022 14:31-0400 Systolic blood pressure 134 mm[Hg] Crow Jimenez [facility] 06-06-2022 14:12-0400 Heart rate 94 /min Crowlul Gaona [facility] 06-06-2022 14:12-0400 SaO2% (BldA) [Mass fraction] 93 % Crowlul Gaona [facility] 06-06-2022 14:10-0400 Body temperature 98.06 [degF] Crow Gaona [facility] 06-06-2022 14:10-0400 Diastolic blood pressure 84 mm[Hg] Crow Gaona [facility] 06-06-2022 14:10-0400 Mean blood pressure 106 mm[Hg] Crow Gaona [facility] 06-06-2022 14:10-0400 Systolic blood pressure 150 mm[Hg] Crow Jimenez [facility] 06-06-2022 14:08-0400 Respiratory rate 18 /min Crow Gaona [facility] 05-30-2022 11:01-0400 Blood Pressure Location [facility] 05-30-2022 11:01-0400 Body temperature 98.06 [degF] [facility] 05-30-2022 11:01-0400 Diastolic blood pressure 70 mm[Hg] [facility] 05-30-2022 11:01-0400 Heart rate 75 /min [facility] 05-30-2022 11:01-0400 SaO2% (BldA) [Mass fraction] 94 % [facility] 05-30-2022 11:01-0400 Systolic blood pressure 130 mm[Hg] Dakotah Gallardo [facility] 05-25-2022 10:23-0400 Blood Pressure Location Basmikel Clinton [facility] 05-25-2022 10:23-0400 Diastolic blood pressure 72 mm[Hg] Floresita Clinton [facility] 05-25-2022 10:23-0400 Heart rate 78 /[facility] 05-25-2022 10:23-0400 SaO2% (BldA) [Mass fraction] 95 % [facility] 05-25-2022 10:23-0400 Systolic blood pressure 123 mm[Hg] Floresita Clinton [facility] 05-16-2022 09:47-0500 Diastolic blood pressure 83 mm[Hg] Marilu Cornell [facility] 05-16-2022 09:47-0500 Heart rate 89 /min Marilu Cornell [facility] 05-16-2022 09:47-0500 Mean blood pressure 104 mm[Hg] Marilu Cornell [facility] 05-16-2022 09:47-0500 Respiratory rate 16 /min Marilu Cornell [facility] 05-16-2022 09:47-0500 Systolic blood pressure 145 mm[Hg] Marilu Cornell [facility] 04-19-2022 10:22-0500 Blood Pressure Location Dakotah Gallardo [facility] 04-19-2022 10:22-0500 Body temperature 97.7 [degF] Dakotah Madrigalalexpallavi [facility] 04-19-2022 10:22-0500 Diastolic blood pressure 66 mm[Hg] [facility] 04-19-2022 10:22-0500 Heart rate 81 /min [facility] 04-19-2022 10:22-0500 SaO2% (BldA) [Mass fraction] 91 % [facility] 04-19-2022 10:22-0500 Systolic blood pressure 110 mm[Hg] [facility] 03-21-2022 13:23-0500 Blood Pressure Location [employer] Zurrba [facility] 03-21-2022 13:23-0500 Diastolic blood pressure 71 mm[Hg] Funambol [facility] 03-21-2022 13:23-0500 Heart rate 74 /min Funambol [facility] 03-21-2022 13:23-0500 SaO2% (BldA) [Mass fraction] 95 % Funambol [facility] 03-21-2022 13:23-0500 Systolic blood pressure 114 mm[Hg] Funambol [facility] 03-16-2022 09:40-0500 Blood Pressure Location [facility] 03-16-2022 09:40-0500 Body temperature 98.24 [degF] [facility] 03-16-2022 09:40-0500 Diastolic blood pressure 70 mm[Hg] [facility] 03-16-2022 09:40-0500 Heart rate 76 /min [facility] 03-16-2022 09:40-0500 SaO2% (BldA) [Mass fraction] 92 % [facility] 03-16-2022 09:40-0500 Systolic blood pressure 100 mm[Hg] [facility] 02-28-2022 15:58-0500 Blood Pressure Location [facility] 02-28-2022 15:58-0500 Body temperature 98.24 [degF] [facility] 02-28-2022 15:58-0500 Diastolic blood pressure 84 mm[Hg] [facility] 02-28-2022 15:58-0500 Heart rate 76 /min [facility] 02-28-2022 15:58-0500 SaO2% (BldA) [Mass fraction] 94 % [facility] 02-28-2022 15:58-0500 Systolic blood pressure 128 mm[Hg] [facility] 01-13-2022 12:00-0400 Diastolic blood pressure 60 mm[Hg] Crispin Vila [facility] 01-13-2022 12:00-0400 Heart rate 101 /min Crispin Vila [facility] 01-13-2022 12:00-0400 Mean blood pressure 80 mm[Hg] Crispin Vila [facility] 01-13-2022 12:00-0400 SaO2% (BldA) [Mass fraction] 92 % Crispin Vila [facility] 01-13-2022 12:00-0400 Systolic blood pressure 120 mm[Hg] Crispin Vila [facility] 01-13-2022 11:30-0400 Diastolic blood pressure 64 mm[Hg] Crispin Vila [facility] 01-13-2022 11:30-0400 Heart rate 94 /min Crispin Vila [facility] 01-13-2022 11:30-0400 Mean blood pressure 81 mm[Hg] Crispin Vila [facility] 01-13-2022 11:30-0400 Respiratory rate 18 /min Crispin Julito [facility] 01-13-2022 11:30-0400 SaO2% (BldA) [Mass fraction] 93 % Crispin Julito [facility] 01-13-2022 11:30-0400 Systolic blood pressure 116 mm[Hg] Crispin Julito [facility] 01-13-2022 11:08-0400 Heart rate 77 /min Crispin Julito [facility] 01-13-2022 11:08-0400 Respiratory rate 18 /min Crispin Julito [facility] 01-13-2022 11:08-0400 SaO2% (BldA) [Mass fraction] 98 % Crispin Julito [facility] 01-13-2022 11:01-0400 Respiratory rate 20 /min Crispin Julito [facility] 01-13-2022 11:00-0400 Diastolic blood pressure 77 mm[Hg] Crispin Julito [facility] 01-13-2022 11:00-0400 Mean blood pressure 94 mm[Hg] Crispin Julito [facility] 01-13-2022 11:00-0400 Respiratory rate 14 /min Crispin Julito [facility] 01-13-2022 11:00-0400 Systolic blood pressure 127 mm[Hg] Crispin Julito [facility] 01-13-2022 10:51-0400 Respiratory rate 22 /min Crispin Julito [facility] 01-13-2022 10:13-0400 Heart rate 84 /min Crispin Julito [facility] 01-13-2022 09:32-0400 Body temperature 98.06 [degF] Lico Gudimella [facility] 01-13-2022 09:32-0400 Respiratory rate 22 /min Lico Gudimella [facility] 01-13-2022 09:23-0400 Diastolic blood pressure 84 mm[Hg] Lico Gudimella [facility] 01-13-2022 09:23-0400 Heart rate 80 /min Lico Gudimella [facility] 01-13-2022 09:23-0400 Mean blood pressure 100 mm[Hg] Lico Gudimella [facility] 01-13-2022 09:23-0400 SaO2% (BldA) [Mass fraction] 96 % Lico Gudimella [facility] 01-13-2022 09:23-0400 Systolic blood pressure 132 mm[Hg] Lico Gudimella [facility] 10-01-2021 17:00-0400 Diastolic blood pressure 78 mm[Hg] Aide CARLITA [facility] 10-01-2021 17:00-0400 Mean blood pressure 93 mm[Hg] Aide CARLITA [facility] 10-01-2021 17:00-0400 Systolic blood pressure 122 mm[Hg] Aide CARLITA [facility] 10-01-2021 16:11-0400 Blood Pressure Location Aide BALL [facility] 10-01-2021 16:11-0400 Diastolic blood pressure 98 mm[Hg] Aide CARLITA [facility] 10-01-2021 16:11-0400 Heart rate 80 /min Aide CARLITA [facility] 10-01-2021 16:11-0400 SaO2% (BldA) [Mass fraction] 95 % Aide CARLITA [facility] 10-01-2021 16:11-0400 Systolic blood pressure 162 mm[Hg] Aide CARLITA [facility] 09-29-2021 14:11-0400 Diastolic blood pressure 79 mm[Hg] Crispin Julito [facility] 09-29-2021 14:11-0400 Heart rate 79 /min Crispin Julito [facility] 09-29-2021 14:11-0400 Mean blood pressure 93 mm[Hg] Crispin Julito [facility] 09-29-2021 14:11-0400 Respiratory rate 20 /min Crispin Julito [facility] 09-29-2021 14:11-0400 SaO2% (BldA) [Mass fraction] 92 % Crispin Julito [facility] 07-20-2022 14:11-0400 Systolic blood pressure 120 mm[Hg] Crispin Julito [facility] 09-29-2021 13:03-0400 Diastolic blood pressure 81 mm[Hg] Crispin Julito [facility] 09-29-2021 13:03-0400 Heart rate 71 /min Crispin Julito [facility] 09-29-2021 13:03-0400 Respiratory rate 20 /min Crispin Julito [facility] 09-29-2021 13:03-0400 SaO2% (BldA) [Mass fraction] 93 % Crispin Julito [facility] 09-29-2021 13:03-0400 Systolic blood pressure 135 mm[Hg] Crispin Julito [facility] 09-29-2021 12:13-0400 Body temperature 98.24 [degF] Crispin Julito [facility] 09-29-2021 12:13-0400 Diastolic blood pressure 90 mm[Hg] Crispin Julito [facility] 09-29-2021 12:13-0400 Heart rate 112 /min Crispin Julito [facility] 09-29-2021 12:13-0400 Respiratory rate 24 /min Crispin Julito [facility] 09-29-2021 12:13-0400 SaO2% (BldA) [Mass fraction] 93 % Crispin Julito [facility] 09-29-2021 12:13-0400 Systolic blood pressure 175 mm[Hg] Crispin Julito [facility] 07-30-2021 10:18-0400 Blood Pressure Location Nathan Henry [facility] 07-30-2021 10:18-0400 Diastolic blood pressure 60 mm[Hg] Nathan Henry [facility] 07-30-2021 10:18-0400 Heart rate 83 /min Nathan Henry [facility] 07-30-2021 10:18-0400 SaO2% (BldA) [Mass fraction] 96 % Nathan Henry [facility] [facility] 07-30-2021 10:18-0400 Systolic blood pressure 118 mm[Hg] Nathan Henry [facility] 07-12-2021 11:01-0400 Blood Pressure Location Reyes VEGA [facility] 07-12-2021 11:01-0400 Diastolic blood pressure 82 mm[Hg] Reyes VEGA [facility] 07-12-2021 11:01-0400 Heart rate 68 /min Reyes COOK [facility] 07-12-2021 11:01-0400 Respiratory rate 16 /min Reyes COOK [facility] 07-12-2021 11:01-0400 Systolic blood pressure 128 mm[Hg] Reyes COOK [facility] [place] 11-04-2020 08:07-0400 Body height 168.91 cm Aide Ball [facility] Phone[facility] [place] Work Phone: 11-04-2020 08:07-0400 Body mass index (BMI) [Ratio] 31.32 kg/m2 Aide Ball Work Phone[facility] [place] Work Phone: 11-04-2020 08:07-0400 Body surface area Derived from formula 2 m2 Aide Ball Work Phone: [facility] [place] Work Phone: 11-04-2020 08:07-0400 Body weight 89.36 kg Aide Ball Work Phone: [facility] [place] Work Phone: Encounters Encounter Date Encounter Type Care Provider Facility Start: 08-22-2023 ambulatory Dakotah Kc ty:DRAKE Paez Start: 07-31-2023 End: 07-31-2023 ambulatory ALEX LENNON Facility:[facility] [place] Start: 07-31-2023 End: 07-31-2023 Patient encounter procedure PRESTON LENNON [facility] [place] Start: 07-17-2023 End: 07-17-2023 ambulatory Marilu Cornell Facility:[facility] Start: 07-17-2023 End: 07-17-2023 Pain Management Marilu Cornell [facility] Start: 07-04-2023 End: 07-04-2023 ambulatory MD Crow Gaona Facility:[facility] Start: 07-04-2023 End: 07-04-2023 Pain Management Crow Gaona [facility] Start: 06-27-2023 End: 06-27-2023 ambulatory Dakotah Gallardo Facility:[facility] Start: 06-27-2023 End: 06-27-2023 Patient encounter procedure Dakotah Gallardo [facility] Start: 05-22-2023 End: 05-22-2023 ambulatory MD Crow Gaona Facility:[facility] Start: 05-22-2023 End: 05-22-2023 Pain Management Crow Gaona [facility] Start: 05-15-2023 End: 05-15-2023 ambulatory RANI CORCORAN Not Available Start: 04-18-2023 End: 04-18-2023 ambulatory Dakotah Gallardo Facility:[facility] Start: 04-06-2023 ambulatory Dakotah Gallardo Facili ty:[facility] Start: 03-31-2023 End: 03-31-2023 ambulatory Landry Mason Facility:[facility] Start: 03-31-2023 End: 03-31-2023 Patient encounter procedure Landry Mason [facility] Start: 03-31-2023 End: 03-31-2023 ambulatory Dakotah Gallardo Facility:[facility] Start: 03-31-2023 End: 03-31-2023 Patient encounter procedure Dakotah Gallardo [facility] Start: 02-10-2023 End: 03-12-2023 ambulatory Dakotah Gallardo Facility:[facility] Start: 01-11-2023 End: 01-26-2023 ambulatory Dakotah Gallardo Facility:[facility] Start: 01-11-2023 End: 01-26-2023 Off-Site Dakotah Gallardo [facility] Start: 01-09-2023 End: 01-09-2023 ambulatory Dakotah Gallardo Facility:[facility] Start: 01-09-2023 End: 01-09-2023 Patient encounter procedure Dakotah Gallardo [facility] Start: 11-04-2022 End: 11-04-2022 ambulatory Dakotah Gallardo Facility:[facility] Start: 11-04-2022 End: 11-04-2022 Patient encounter procedure Dakotah Gallardo [facility] Start: 10-24-2022 End: 10-24-2022 ambulatory Marilu Cornell Facility:[facility] Start: 10-24-2022 End: 10-24-2022 Patient encounter procedure Marilu Cornell [facility] Start: 09-21-2022 End: 09-21-2022 ambulatory Reyes VEGA Facility:[facility] Start: 09-21-2022 End: 09-21-2022 Patient encounter procedure Reeys VEGA [facility] Start: 09-16-2022 End: 09-16-2022 ambulatory Dakotah Gallardo Facility:[facility] Start: 09-16-2022 End: 09-16-2022 Patient encounter procedure Dakotah Gallardo [facility] Start: 09-14-2022 ambulatory Landry Mason Facilit y:[facility] Start: 09-05-2022 End: 09-05-2022 ambulatory PA-C Marilu Cornell Facility:[facility] Start: 09-05-2022 End: 09-05-2022 Pain Management Marilu Cornell [facility] Start: 08-31-2022 ambulatory Landry Mason Facilit y:[facility] Start: 08-31-2022 End: 08-31-2022 ambulatory Dakotah Gallardo Facility:[facility] Start: 08-23-2022 End: 08-23-2022 ambulatory MD Crow Gaona Facility:[facility] Start: 08-12-2022 End: 08-12-2022 Patient encounter procedure Dakotah Gallardo [facility] Start: 08-11-2022 End: 09-05-2022 Off-Site Dakotah Gallardo [facility] Start: 07-22-2022 End: 07-22-2022 Pain Management Marilu Cornell [facility] Start: 07-15-2022 End: 07-15-2022 Patient encounter procedure Dakotah Gallardo [facility] Start: 07-13-2022 End: 07-13-2022 Patient encounter procedure Marilu Cornell [facility] Start: 07-11-2022 End: 07-11-2022 Patient encounter procedure Basmikel Clinton [facility] Start: 07-11-2022 End: 08-10-2022 Off-Site Dakotah Gallardo [facility] Start: 07-07-2022 End: 07-07-2022 Patient encounter procedure Marilu Cornell [facility] Start: 07-04-2022 End: 07-04-2022 Pain Management Marilu Cornell [facility] Start: 06-13-2022 End: 07-06-2022 Off-Site Dakotah Gallardo [facility] Start: 06-06-2022 End: 06-06-2022 Pain Management Crow Gaona [facility] Start: 05-30-2022 End: 05-30-2022 Patient encounter procedure Reynold Romo [facility] Start: 05-30-2022 End: 05-30-2022 Patient encounter procedure Dakotah Gallardo [facility] Start: 05-25-2022 End: 05-25-2022 Patient encounter procedure Floresita Marco Kangm [facility] Start: 05-16-2022 End: 05-16-2022 Pain Management Marilu Cornell [facility] Start: 05-11-2022 End: 06-09-2022 Off-Site Dakotah Gallardo [facility] Start: 04-19-2022 End: 04-19-2022 Patient encounter procedure Dakotah Gallardo [facility] Start: 04-13-2022 End: 04-13-2022 Patient encounter procedure Reyes VEGA [facility] Start: 04-11-2022 End: 04-11-2022 Patient encounter procedure Reynold Romo [facility] Start: 03-28-2022 End: 03-28-2022 Patient encounter procedure Reyes VEGA [facility] Start: 03-22-2022 End: 04-05-2022 Pre-admission assessment Floresita Clinton [facility] Start: 03-21-2022 End: 03-21-2022 Lab Drop off [facility] Start: 03-21-2022 End: 03-21-2022 Patient encounter procedure Floresita Clinton [facility] Start: 03-16-2022 End: 03-16-2022 Patient encounter procedure [place] Ani Gallardo [facility] Start: 03-14-2022 End: 04-08-2022 Off-Site [place] [facility] Start: 02-28-2022 End: 02-28-2022 Patient encounter procedure [place] Ani Madrigalpallavi [facility] Start: 01-13-2022 End: 01-13-2022 Emergency department patient visit Crispin Vila [facility] Start: 01-13-2022 End: 01-13-2022 Patient encounter procedure Lico Benton [facility] Start: 12-13-2021 End: 01-06-2022 Off-Site Lico Giacomomella [facility] Start: 11-30-2021 End: 11-30-2021 Patient encounter procedure Dakotah Gallardo [facility] Start: 10-15-2021 End: 10-15-2021 Patient encounter procedure Aide BALL [facility] Start: 10-11-2021 End: 11-02-2021 Off-Site Aide BALL [facility] Start: 10-01-2021 End: 10-01-2021 Patient encounter procedure Aide BALL [facility] Start: 09-29-2021 End: 09-29-2021 Emergency department patient visit Crispin Vila [facility] Start: 09-21-2021 End: 09-21-2021 Off-Site Aide BALL [facility] Start: 09-10-2021 End: 09-29-2021 Off-Site Aide BALL [facility] Start: 08-11-2021 End: 09-09-2021 Off-Site Aide BALL [facility] Start: 07-30-2021 End: 07-30-2021 Patient encounter procedure Nathan Henry [facility] Start: 07-12-2021 End: 07-12-2021 Patient encounter procedure Reyes VEGA [facility] Start: 07-12-2021 End: 08-06-2021 Off-Site Aide BALL [facility] Start: 06-11-2021 End: 07-02-2021 Off-Site Aide BALL [facility] Start: 05-11-2021 End: 06-08-2021 Off-Site Aide BALL [facility] Start: 11-04-2020 Patient encounter procedure Aidedamion Ball Work Phone: [facility] Work Phone: Start: 11-16-2019 End: 11-17-2019 Patient encounter procedure NICK Olea [facility] Facility: Start: 03-24-2006 End: 03-24-2006 Patient encounter procedure Earnest Bermudez MD Work Phone: Cardiothoracic Comment on above: PULM HYPERTENSION (P rimary Dx) Procedures Date Procedure Procedure Detail Performing Clinician Start: 07-04-2023 Injection of nerve r oot of sacral spine using fluoroscopic guidance [employer] Comment on above: 100% relief Start: 03-13-2023 Injection given ROMELIA LENNON Comment on above: given by pain manage ment Start: 08-23-2022 Injection of nerve r oot of lumbar spine using fluoroscopic guidance [employer] Comment on above: R L4/L5 L5/S1 90% re lief Start: 06-06-2022 Injection of sacroil iac joint using fluoroscopic guidance [employer] Comment on above: R SIJ 90% relief for couple days Start: 06-07-2021 Cystoscopy Reyes BERG Start: 09-07-2020 Hernia repair Aide CARLITA Start: 08-03-2020 Injection of therape utic substance [...] left total knee arthroplasty Aide BALL Appendectomy Aidedamion zelaya Work Phone: Appendectomy Aide CHILDERS ELD Back Surgery Aide CANFI ELD Corns and callus (disorder) Aide BALL Extraction of cataract Kirk BALL H/O: artificial joint S/P knee replacemen t Crow Gaona Implantation of join t prosthesis Aidedamion Ball Work Phone: Intestinal obstructi on (disorder) Aide BALL Ligation of fallopia n tube Aide BALL mole removal 2 Aide ZELAYA Comment on above: face under nose mole removal 3 [facility] Comment on above: face under nose mole removal 4 [facility] Comment on above: face under nose mole removal 5 Marilu [place] Comment on above: face under nose mole removal 6 PRESTON PARUL Y Comment on above: face under nose Reduction mammoplasty Yogi bruno CARLITA Tonsillectomy Aide A Ca [facility] Work Phone: Plan of Treatment Date Care Activity Detail Author Start: 01-15-2024 ambulatory Ambulatory Facility:[facility]ae[facility] Start: 12-09-2020 FUV, Provider: Bashir Rivera, Status: Pen, Time: 9:30 AM FUV, Provider: Bashir Rivera, Status: Mohinder, Time: 9:30 AM [facility] Work Phone: Start: 11-11-2020 Influenza vaccination INFLUENZ A (Season Ended) [facility] Start: 03-20-2011 LIPID SCREEN LIPID SCREEN [facility] Start: 2010 ADVANCE DIRECTIVE DISCUSSION ADVANCE DIRECTIVE DISCUSSION [facility] Start: 2010 BONE DENSITY BONE DENSITY [facility] Start: 2010 PNEUMOVAX AGE 65 AND OVER WITH 5YR LOOKBACK (#1) PNEUMOVAX AGE 65 AND OVER WITH 5YR LOOKBACK (#1) [facility] Start: 03-20-2009 DIABETES SCREEN DIABETES SCREEN [facility] Start: 05-27-1995 Screening for malign ant neoplasm of colon [facility] Start: 05-27-1995 SHINGRIX VACCINE (1 of 2) SCOTT GRIX VACCINE (1 of 2) [facility] Start: 1964 Urine microalbumin profile DTAP,TDAP,TD (1 - Tdap) [facility] Start: 05-27-1963 HEPATITIS C SCREENING HEPATITIS C SC REENING [facility] Start: 1957 Adult depression screening assessment DEPRESSION SCREENING [facility] Start: 1957 COVID-19 VACCINE (1) COVID-19 VACCIN E (1) [facility] Immunizations Immunization Date Immunization Notes Care Provider Go joshua 05-22-2023 zoster vaccine recombinant PRESTON LENNON [facility] 02-06-2023 zoster vaccine recombinant [facility] 02-06-2023 zoster vaccine, live [facility] Comment on above: Result Comment: Zost er Recombinant per [facility] 01-09-2023 influenza, high dose seasonal, preservative-free [facility] [place] Comment on above: Early/Late Reason: E ole/Late Reason: System Down 01-18-2022 COVID-19, mRNA, LNP- S, bivalent booster, PF, 30 mcg/0.3 mL dose [facility] 01-18-2022 influenza, high dose seasonal, preservative-free [facility] 01-13-2021 COVID-19, mRNA, LNP- S, PF, 30 mcg/0.3 mL dose Aide CARLITA [facility] 12-09-2020 influenza, high dose seasonal, preservative-free Aide CARLITA [facility] 05-18-2020 SARS-CoV-2 (COVID-19 ) mRNA-1273 vaccine Aide CHAMBERLAINFIELD [facility] Comment on above: Result Comment: [employer] vaccine administered with [facility] dept [employer] scanned with date 12-27-2019 influenza, high dose seasonal, preservative-free Aide CARLITA [facility] 12-18-2018 influenza, high dose seasonal, preservative-free Aide CARLITA [facility] 01-09-2018 influenza virus vaccine, unspecified formulation Aide CARLITA [facility] 03-29-2017 pneumococcal conjuga te vaccine, 13 valent Aide CARLITA [facility] 12-08-2016 influenza virus vaccine, unspecified formulation Dakotah Gallardo [facility] 12-17-2015 influenza virus vaccine, unspecified formulation Dakotah Gallardo [facility] 01-21-2014 pneumococcal polysaccharide vaccine, 23 valent Aide CARLITA [facility] 12-16-2013 pneumococcal polysaccharide vaccine, 23 valent Aide CARLITA [facility] 01-04-2008 pneumococcal polysaccharide vaccine, 23 valent Aide CARLITA [facility] NEGATED: Highlighted row has not occurred!01-13-2022 influenza virus vaccine, unspecified formulation Lico Gudimella [facility] Payers Date Payer Category Payer Unknown MMO ZZZMMO [facility] PLUS [id number] 2006-2010 PPO [id number] 1959 Medicare [id number] 1959 Unknown [id number] 1945 Unknown [id number] ..[id number] 1945 Unknown [id number] ..840.1.221134.3.579.2.125 9 1945 Unknown [id number] 2.16.840.1.979973.3.579.2.727 1945 Unknown [id number] 2.16.840.1.116871.3.579.2 1945 Unknown [id number] 2.16.840.1.595843.3.579.2 1945 Unknown [id number] 2.16.840.1.864898.3.579.2 1945 Unknown [id number] 2.16.840.1.054181.3.579.2 1945 Unknown [id number] ..840.1.908505.3.579.2 1945 Unknown [id number] ..840.1.256756.3.579.2 1945 Unknown [id number] ..840.1.127912.3.579. 1945 Unknown [id number] 2..840.1.179974.3.579.2 1945 Unknown [id number] ..840.1.953029.3.579.2 1945 Unknown [id number] .840.1.587196.3.579.2 1945 Unknown [id number] .840.1.063891.3.579.2 1945 Unknown [id number] .16.840.1.473634.3.579.2 1945 Unknown [id number] 2.16.840.1.559805.3.579.2 1945 Unknown [id number] 2.16.840.1.332252.3.579.2 1945 Unknown [id number] 2.16.840.1.382835.3.579. 1945 Unknown [id number] 2.16.840.1.287134.3.579.2.727 1945 Unknown [id number] 2.16.840.1.467835.3.579.2.727 1945 Unknown [id number] 2.16.840.1.077740.3.579.2.727 1945 Unknown [id number] 2.16.840.1.214368.3.579.2.727 1945 Unknown [id number] 2.16.840.1.504380.3.579.2.727 1945 Unknown [id number] 2.16.840.1.564543.3.579.2.727 1945 Unknown [id number] 2.16.840.1.399940.3.579.2.72 Unknown Social History Date Type Detail Facility Start: 03-24-2006 End: 07-31-2023 Tobacco smoking status NHIS Former smoker [facility] End: 03-13-2000 History of tobacco use Current smoker [facility] Work Phone: End: 03-13-2000 History of tobacco use Cigarette Smoker [facility] Work Phone: Start: 03-24-2006 Cigarettes smoked current (pack per day) - Reported [facility] Start: 03-24-2006 Alcohol intake Current drinke r of alcohol (finding) [facility] Start: 1945 Sex Assigned At Not on file C [facility] Sex Assigned At Female [place] [facility] Medical Equipment Procedure Code Equipment Code Equipment [...] FDA Start: 09-07-2020 HERNIA REPAIR VENTRAL ADULT KOLYB BANSAL, Star Esteves 09/07/20 Non Biological Abdomen [...] HERNIA REPAIR VENTRAL ADULT KOLBY BANSAL, Star R 09/07/20 Non Biological Abdomen FDA Start: 09-07-2020 HERNIA REPAIR VENTRAL ADULT KOLBY BANSAL, Star Esteves 09/07/20 Non Biological Abdomen FDA Start: 09-07-2020 HERNIA REPAIR VENTRAL ADULT KOLBY BANSAL, Star R 09/07/20 Non Biological Abdomen FDA Start: 09-07-2020 [...] Patient Goal Desired Activity /State 03-23-2021 09-22-2020 11-05-201901-03-2019 Functional Status Date Assessment Result Facility 07-31-2023 Functional Status N/A [facility] [place] 07-17-2023 Functional Status N/A [facility] 07-04-2023 Functional Status N/A [facility] 05-22-2023 Functional Status N/A [facility] 03-31-2023 Functional Status N/A [facility] [place] 01-09-2023 Functional Status N/A [facility] 11-04-2022 Functional Status N/A [facility] 09-16-2022 Functional Status N/A [facility] 09-05-2022 Functional Status N/A [facility] 08-12-2022 Functional Status N/A [facility] 07-22-2022 Functional Status N/A [facility] 07-15-2022 Functional Status N/A [facility] 07-11-2022 Functional Status No [facility] 07-04-2022 Functional Status N/A [facility] 06-06-2022 Functional Status N/A [facility] 05-30-2022 Functional Status N/A [facility] 05-25-2022 Functional Status No [facility] 05-16-2022 Functional Status N/A [facility] 04-19-2022 Functional Status N/A [facility] 04-13-2022 Functional Status N/A [facility] [place] 03-21-2022 Functional Status No [facility] 03-16-2022 Functional Status N/A [facility] 03-16-2022 Functional Status N/A [facility] 02-28-2022 Functional Status N/A [facility] 01-13-2022 Functional Status N/A [facility] 10-01-2021 [facility] N/[facility] 09-29-2021 Functional Status N/A [facility] 09-21-2021 Functional Status [facility] 03-24-2006 to 07-31-2023 Note Date [...] medicine. Follow these instructions at home: Take hnyf-tlv-kerffup and prescription medicines as told by your [...] provider. Document Revised: 04/13/2020 Document Reviewed: 12/17/2019 [employer] Patient Education 2022 [employer] Follow Up Care 07/27/2023 14:34:48 With:PRESTON LENNON PA-C, URL Address: [address] [place] [address] Business (1) When: only if needed [facility] [place] 07-17-2023 Evaluation + Plan note Extrac gaurang from: Title:Pain Managment Follow up Author:Marilu Saunders Date:07/17/23 Impression and Plan Patient is a [...] Appointments Appointment Date:01/15/2024 03:30:00 PM Scheduled Provider: Location:[facility] Appointment Type:FM Medicare Wellness Subsequent [facility]04-23-2024 Note [id number] Evaluation + Plan noteExtracted from: Title:FUV [...] adequate relief including ongoing physical therapy at [place]. Risk, benefits, and alternatives were reviewed with [...] Date:06/27/2023 11:00:00 AM Scheduled Provider:Dakotah Gallardo DO Location:[facility] Appointment Type: Procedure Appointment Date:01/15/2024 03:30:00 PM Scheduled Provider: Location:[facility] Appointment Type:FM Medicare Wellness Subsequent [facility]06-26-2023 Evaluation + Plan noteExtracted from: Title:Pain Managment [...] Date:09/16/2022 09:40:00 AM Scheduled Provider:Dakotah Gallardo DO Location:[facility] Appointment Type:FM Open Appointment Date:09/21/2022 10:15:00 AM Scheduled Provider:Reyes VEGA MD Location:[facility] Appointment Type:URO Office Visit Appointment Date:10/24/2022 01:00:00 PM Scheduled [facility]:EMG Bilateral Lower Extremity [facility]06-13-2023 Note [id number]:127[facility] 07-22-2022 Evaluation + Plan noteExtracted from: Title:Pain [...] Date:08/12/2022 09:40:00 AM Scheduled Provider:Dakotah Gallardo DO Location:[facility] Appointment Type:FM Procedure Appointment Date:09/21/2022 10:15:00 AM Scheduled Provider:Reyes VEGA MD Location:[facility] Appointment Type:URO Office Visit [facility]04-24-2023 Evaluation + Plan noteExtracted from: Title:Pain [...] Appointments Appointment Date:07/11/2022 01:45:00 PM Scheduled Provider: Location:[facility] Appointment Type:Urology FT Appointment Date:07/15/2022 10:40:00 AM Scheduled Provider:Dakotah Gallardo DO Location:[facility] Appointment Type: Open Appointment Date:09/21/2022 10:15:00 AM Scheduled Provider:Reyes VEGA MD Location[facility] 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 Appointment Type:URO Office Visit [facility]02-01-2023 Hospital Discharge instructions Follow Up Care 04/13/2022 11:42:42 With:Reyes VEGA MD, URL Address: [facility] [address] [address] [facility] [address] [employer] [address] [place] [id number]- When: Unknown [facility] 02-01-2023 Hospital Discharge instructions Patient Education 04/13/2022 [...] fried and sweet foods. General instructions Take eivk-ehl-ajaqojd and prescription medicines only as told by [...] 12/24/2009 Document Revised: 06/20/2019 Document Reviewed: 03/15/2018 [employer] Patient Education 2020 Rdio. Follow Up Care 03/28/2022 14:08:35 With:GARY BANSAL, Reyes Sandoval, URL Address: [address] [place] [id number]- When: Unknown [facility] 01-16-2023 Hospital Discharge instructions Patient Education 03/28/2022 [...] Care 02/14/2022 11:04:13 With:Reyes VEGA Address: [address] [address]- Business (1) When:2 to 4 weeks Comments:Call for followup appointment. At that office visit, we most likely will be checking for residual urine to be sure you are emptying the bladder. [facility]01-04-2023 Hospital Discharge instructions Patient Education 03/16/2022 [...] knees and rising up. Do strength and jethp-lb-odcakm exercises only as told by your health care provider or physical therapist. General instructions Take dnum-cup-mttogrt and prescription medicines only as told by [...] 04/06/2005 Document Revised: 09/11/2018 Document Reviewed: 09/11/2018 [employer] Patient Education 2020 Rdio. Follow Up Care 02/28/2022 16:55:08 With:Paulina AGUAYO, GIOVANNY Borges, PED Address: [address] [facility] [place] [address] When:1 month only if needed Comments:40 mins [facility] 11-03-2022 Hospital Discharge instructions Patient [...] Follow these instructions at home: Medicines Take ahbq-loq-ytrjvfn and prescription medicines only as told by [...] and water are not available, use hand deputy court. During flu season, avoid enclosed spaces that [...] 12/25/2007 Document Revised: 02/09/2018 Document Reviewed: 04/03/2017 [employer] Patient Education [employer] Follow Up Care 01/13/2022 10:08:17 With:Marlys Goodenkarleemiguelina Address:Unknown When:01/16/2022 11:53:03 [facility]11-03-2022 Evaluation + Plan noteExtracted from: Title:ED [...] day(s), # 20 cap(s), Refills(s) 0, Pharmacy: [facility]/pharmacy #[id number], 168, cm, 01/13/22 10:18:00 EDT, Height/Length Dosing, 89.3, kg, 01/13/22 10:18:00 EDT, Weight Dosing methylPREDNISolone, 125 mg = 2 mL, Injection, IV Push, Once, Stop date 01/13/22 10:20:00 EDT, STAT, Start date 01/13/22 10:20:00 EDT, 01/13/22 10:20:00 EDT predniSONE, 60 mg = 3 tab(s), Oral, Daily, X 7 day(s), # 21 tab(s), Refills(s) 0, Pharmacy: [facility]/pharmacy #[id number], 168, cm, 01/13/22 10:18:00 EDT, Height/Length [...] Date:01/18/2022 09:40:00 AM Scheduled Provider:Dakotah Gallardo DO Location:[facility] Appointment Type:FM Open Appointment Date:02/14/2022 10:15:00 AM Scheduled Provider:Reyes VEGA MD Location:[facility] Appointment Type:URO Office Visit Diagnostic Tests Pending * Blood Culture Charcoal 01/13/22 * Blood Culture Charcoal 01/13/22 [facility]07-22-2022 Hospital Discharge instructions Patient Education 10/01/2021 [...] Follow these instructions at home: Medicines Take edco-vqr-qxlnfyk and prescription medicines (inhaled or pills) only [...] 12/07/2005 Document Revised: 02/09/2018 Document Reviewed: 04/03/2017 [employer] Patient Education 2020 Rdio. 10/01/2021 11:55:31 DASH Eating Plan DASH Eating [...] your health care provider or diet and juvenile justice specialist (dietitian) to adjust your eating plan to [...] each week. ?Heart-healthy fats. Healthy fats called [place]-3 fatty acids are found in foods such [...] Dairy Whole or 2% milk, cream, and wknq-pdk-viwq. Whole or full-fat cream cheese. Whole-fat or sweetened yogurt. Full-fat cheese. Nondairy creamers. Whipped toppings. Processed cheese and cheese spreads. Fats and oils Butter. Stick margarine. Lard. Shortening. Ghee. Mcdonnell fat. Tropical oils, such as coconut, palm kernel, or palm oil. Seasoning and other foods Salted popcorn and pretzels. Onion salt, garlic salt, seasoned salt, table salt, and sea salt. [facility] Hospital[facility] sauce. Tartar sauce. Barbecue sauce. Teriyaki sauce. [...] more information: National Heart, Lung, and Blood [place]: www.nhlbi.nih.gov [place] Heart Association: www.heart.org Summary The DASH eating [...] your health care provider or diet and juvenile justice specialist (dietitian) to adjust your eating plan to your individual calorie needs. This information is not intended to replace advice given to you by your health care provider. Make sure you discuss any questions you have with your health care provider. Document Released: 02/16/2012 Document Revised: 02/09/2018 Document Reviewed: 02/20/2017 [employer] Patient Education [employer] Follow Up Care 09/21/2021 12:09:17 With:CARLITA BANSAL, GIOVANNY Gaming Address: When:Within 6 Month(s) [facility] [place] 07-20-2022 Hospital Discharge instructions Patient Education 09/29/2021 [...] Follow these instructions at home: Medicines Take qowa-nla-vyaxykr and prescription medicines only as told by [...] 12/07/2005 Document Revised: 08/30/2018 Document Reviewed: 08/30/2018 [employer] Patient Education 2020 Rdio. Follow Up Care 09/29/2021 12:10:26 With:Drake Medina Address: [address] [place] [phone]- [phone] Business (1) When:10/02/2021 14:09:45 Comments:Call after leaving the emergency department to arrange for follow- up.You may always return to [facility] for your care. There are no hard feelings for leaving AGAINST MEDICAL ADVICE. With:Aide BALL Address: [address] [place] [address] [address] [place] [address]- Business (1) When:10/02/2021 14:09:32 Comments:Call the office [...] legs, or any new or worsening symptoms. [facility]07-20-2022 Evaluation + Plan noteExtracted from: Title:ED Note Author:Crispin Vila DO Date: Chest pain (R07.9: Chest morgan n, [...] Date:10/01/2021 04:00:00 PM Scheduled Provider:Aide BALL MD Location:[facility] Appointment Type: Open Appointment Date:10/15/2021 10:20:00 AM Scheduled Provider:Aide BALL MD Location:[facility] Appointment Type:FM Open Appointment Date:02/14/2022 10:15:00 AM Scheduled Provider:Reyes VEGA MD Location:[facility] Appointment Type:URO Office Visit Appointment Date:07/19/2022 08:00:00 AM Scheduled Provider: Location:[facility] Appointment Type: Medicare Wellness Subsequent Appointment Date:07/19/2022 09:00:00 AM Scheduled Provider:Aide BALL MD Location:[facility] Appointment Type: Open [facility]05-20-2022 Hospital Discharge instructions Patient Education 07/30/2021 [...] frozen fruits, and frozen vegetables. Avoid buying jhxfe-os-tci foods, such as pre-cut fruits and vegetables and pre-made salads. If possible, shop around to discover where you can find the best prices. Consider other retailers such as dollar stores, larger wholesale stores, local fruit and vegetable swabr, and [employer] markets. Do not shop when you are [...] 10/31/2014 Document Revised: 02/28/2018 Document Reviewed: 02/28/2018 [employer] Patient Education 2020 Rdio. 07/30/2021 10:53:17 Chronic Obstructive Pulmonary Disease Exacerbation [...] Follow these instructions at home: Medicines Take yhwj-hny-afvjhbo and prescription medicines only as told by [...] and water are not available, use hand deputy court. During flu season, avoid enclosed spaces that [...] 12/25/2007 Document Revised: 02/09/2018 Document Reviewed: 04/03/2017 [employer] Patient Education 2019 Rdio. [facility] [place] 05-02-2022 Hospital Discharge instructions Patient Education 07/12/2021 [...] fried and sweet foods. General instructions Take lzyu-gpg-ztaphpl and prescription medicines only as told by [...] 12/24/2009 Document Revised: 06/20/2019 Document Reviewed: 03/15/2018 [employer] Patient Education 2020 Rdio. Follow Up Care 06/07/2021 14:12:14 With:GARY BANSAL, Reyes Sandoval, URL Address: [facility] [place] [address]- When:02/11/2022 [facility] 01-12-2007 History of Present illness Narrative* 03/24/2006 [...] breath. Reconsideration after completed pulmonary evaluation. Earnest Bermudez [facility] note Future Appointments Appointment Date:07/12/2021 10:45:00 AM Scheduled Provider:Reyes VEGA MD Location:[facility] Appointment Type:URO Office Visit Appointment Date:07/13/2021 09:20:00 AM Scheduled Provider:Aide BALL MD Location:[facility] Appointment Type: Open Appointment Date:07/19/2022 08:00:00 AM Scheduled Provider: Location:[facility] Appointment Type: Medicare Wellness Subsequent Appointment Date:07/19/2022 09:00:00 AM Scheduled Provider:Aide BALL MD Location:[facility] Appointment Type: Open [facility] [place] Evaluation + Plan note Future Appointments Appointment Date:10/15/2021 10:20:00 AM Scheduled Provider:Aide BALL MD Location:[facility] Appointment Type: Open Appointment Date:02/14/2022 10:15:00 AM Scheduled Provider:Reyes VEGA MD Location:[facility] Appointment Type:URO Office Visit Appointment Date:07/19/2022 08:00:00 AM Scheduled Provider: Location:[facility] Appointment Type: Medicare Wellness Subsequent Appointment Date:07/19/2022 09:00:00 AM Scheduled Provider:Aide BALL MD Location:[facility] Appointment Type: Open [facility] Evaluation + Plan note Future Appointments Appointment Date:10/01/2021 04:00:00 PM Scheduled Provider:Aide BALL MD Location:[facility] Appointment Type: Open Appointment Date:10/15/2021 10:20:00 AM Scheduled Provider:Aide BALL MD Location:[facility] Appointment Type:FM Open Appointment Date:02/14/2022 10:15:00 AM Scheduled Provider:Reyes VEGA MD [facility] Type:URO Office Visit Appointment Date:07/19/2022 08:00:00 AM Scheduled Provider: Location:[facility] Appointment Type:FM Medicare Wellness Subsequent Appointment Date:07/19/2022 09:00:00 AM Scheduled Provider:Aide BALL MD Location:[facility] Appointment Type:[facility] Evaluation + Plan note Future Appointments Appointment Date:11/30/2021 08:40:00 AM Scheduled Provider:Dakotah Gallardo DO Location:[facility] Appointment Type:FM Open Appointment Date:02/14/2022 10:15:00 AM Scheduled Provider:Reyes VEGA MD Location:[facility] Appointment Type:URO Office Visit Appointment Date:07/19/2022 08:00:00 AM Scheduled Provider: Location:[facility] Appointment Type:FM Medicare Wellness Subsequent Appointment Date:07/19/2022 09:00:00 AM Scheduled Provider:Aide BALL MD Location:[facility] Appointment Type:[facility] Evaluation + Plan note Future Appointments Appointment Date:02/14/2022 10:15:00 AM Scheduled Provider:Reyes VEGA MD Location:[facility] Appointment Type:URO Office Visit [facility] Evaluation + Plan note Future Appointments Appointment Date:01/18/2022 09:40:00 AM Scheduled Provider:Dakotah Gallardo DO [facility] Appointment Type:FM Open Appointment Date:02/14/2022 10:15:00 AM Scheduled Provider:Reyes VEGA MD Location:[facility] Appointment Type:URO Office Visit [facility] Evaluation + Plan note Future Appointments Appointment Date:03/16/2022 09:40:00 AM Scheduled Provider:Dakotah Gallardo DO Location:[facility] Appointment Type:FM Procedure Appointment Date:03/21/2022 08:15:00 AM Scheduled Provider: Location:[facility] Appointment Type:Urology CALL PAT FT Appointment Date:03/28/2022 02:00:00 PM Scheduled Provider: Location:[facility] Appointment Type:Urology FT [facility] Evaluation + Plan note Future Appointments Appointment Date:03/21/2022 08:15:00 AM Scheduled Provider: Location:[facility] Appointment Type:Urology CALL PAT FT Appointment Date:03/21/2022 01:15:00 PM Scheduled Provider:Floresita Clinton MD Location:.[facility] Appointment Type:Pulmonary New Patient (FT) Appointment Date:03/28/2022 02:00:00 PM Scheduled Provider: Location:[facility] Appointment Type:Urology FT Appointment Date:04/19/2022 10:20:00 AM Scheduled Provider:Dakotah Gallardo DO Location:[facility] Appointment Type: Open [facility] Evaluation + Plan note Future Appointments Appointment Date:03/28/2022 02:00:00 PM Scheduled Provider: Location:[facility] Appointment Type:Urology FT Appointment Date:04/19/2022 10:20:00 AM Scheduled Provider:Dakotah Gallardo DO Location:[facility] Appointment Type:FM Open [facility] Future Appointments Appointment Date:03/28/2022 02:00:00 PM Scheduled Provider: Location:[facility] Appointment Type:Urology FT Appointment Date:04/19/2022 10:20:00 AM Scheduled Provider:Dakotah Gallardo DO Location:[facility] Appointment Type: Open Diagnostic Tests Pending * Urine Culture 03/21/22 [facility] Future Appointments Appointment Date:04/04/2022 12:30:00 PM Scheduled Provider: [facility] App[facility] Type:PUL Pulmonary Function Test (FT) Appointment Date:04/04/2022 01:30:00 PM Scheduled Provider: [facility] Appointment Type:PUL Six Minute Walk Test (FT) Appointment Date:04/13/2022 11:15:00 AM Scheduled Provider:Reyes VEGA MD Location: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 Appointment Type:URO Office Visit Appointment Date:04/19/2022 10:20:00 AM Scheduled Provider:Dakotah Gallardo DO Location:[facility] Appointment Type:FM Open Appointment Date:05/02/2022 12:30:00 PM Scheduled Provider: [facility] Appointment Type:PUL Pulmonary Function Test (FT) Appointment Date:05/02/2022 01:30:00 PM Scheduled Provider: [facility] Appointment Type:PUL Six Minute Walk Test (FT) [facility] Evaluation + Plan note Future Appointments Appointment Date:04/13/2022 11:15:00 AM Scheduled Provider:Reyes VEGA MD Location:[facility] Appointment Type:URO Office Visit Appointment Date:04/19/2022 10:20:00 AM Scheduled Provider:Dakotah Gallardo DO Location:[facility] Appointment Type:FM Open Appointment Date:05/02/2022 12:30:00 PM Scheduled Provider: Location[facility] Appointment Type:PUL Pulmonary Function Test (FT) Appointment Date:05/02/2022 01:30:00 PM Scheduled Provider: Location[facility] Appointment Type:PUL Six Minute Walk Test (FT) [facility] Future Appointments Appointment Date:04/19/2022 10:20:00 AM Scheduled Provider:Dakotah Gallardo DO Location:[facility] Appointment Type:FM Open Appointment Date:05/02/2022 12:30:00 PM Scheduled Provider: Location[facility] Appointment Type:PUL Pulmonary Function Test (FT) Appointment Date:05/02/2022 01:30:00 PM Scheduled Provider: Location[facility] Appointment Type:PUL Six Minute Walk Test (FT) Appointment Date:09/21/2022 10:15:00 AM Scheduled Provider:Reyes VEGA MD Location:[facility] Appointment Type:URO Office Visit [facility] Evaluation + Plan note Future Appointments Appointment Date:05/02/2022 12:30:00 PM Scheduled Provider: Location[facility] Appointment Type:PUL Pulmonary Function Test (FT) Appointment Date:05/02/2022 01:30:00 PM Scheduled Provider: Location[facility] Appointment Type:PUL Six Minute Walk Test (FT) Appointment Date:05/30/2022 04:00:00 PM Scheduled Provider:Dakotah Gallardo DO Location:[facility] Appointment Type:FM Open Appointment Date:09/21/2022 10:15:00 AM Scheduled Provider:Reyes VEGA MD Location: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 Appointment Type:URO [facility] Future Appointments Appointment Date:06/06/2022 03:00:00 PM Scheduled Provider: Location:[facility] Appointment Type:Surgery FT Appointment Date:07/04/2022 01:30:00 PM Scheduled Provider:Marilu Cornell PA-C [facility] Appointment Type:Pain Management - Follow Up (FT) Appointment Date:07/15/2022 10:40:00 AM Scheduled Provider:Dakotah Gallardo DO Location:[facility] Appointment Type:FM Open Appointment Date:09/21/2022 10:15:00 AM Scheduled Provider:Reyes VEGA MD Location:[facility] Appointment Type:URO Office Visit [facility] Evaluation + Plan note Future Appointments Appointment Date:07/04/2022 01:30:00 PM Scheduled Provider:Marilu Cornell PA-C [facility] Appoint[facility] Type:Pain Management - Follow Up (FT) Appointment Date:07/15/2022 10:40:00 AM Scheduled Provider:Dakotah Gallardo DO [facility] App[facility]ment Type:FM Open Appointment Date:09/21/2022 10:15:00 AM Scheduled Provider:Reyes VEGA MD Location:[facility] Appointment Type:URO [facility] Future Appointments Appointment Date:07/04/2022 09:15:00 AM Scheduled Provider: Location:[facility] Appointment Type:Urology CALL PAT FT Appointment Date:07/04/2022 01:30:00 PM Scheduled Provider:Marilu Cornell PA-C Location:[facility] Appointment Type:Pain Management - Follow Up (FT) Appointment Date:07/11/2022 01:45:00 PM Scheduled Provider: Location:[facility] Appointment Type:Urology FT Appointment Date:07/15/2022 10:40:00 AM Scheduled Provider:Dakotah Gallardo DO Location:[facility] Appointment Type:FM Open Appointment Date:09/21/2022 10:15:00 AM Scheduled Provider:Reyes VEGA MD Location:[facility] Appointment Type:URO Office Visit [facility] Evaluation + Plan note Future Appointments Appointment Date:07/11/2022 03:15:00 PM Scheduled Provider:Floresita Clinton MD [facility] Type:Pulmonary Follow Up (FT) Appointment Date:07/15/2022 10:40:00 AM Scheduled Provider:Dakotah Gallardo DO Location:[facility] Appointment Type:FM Open Appointment Date:09/21/2022 10:15:00 AM Scheduled Provider:Reyes VEGA MD Location:[facility] Appointment Type:URO Office Visit [facility] Evaluation + Plan note Future Appointments Appointment Date:07/15/2022 10:40:00 AM Scheduled Provider:Dakotah Gallardo DO Location:[facility] Appointment Type:FM Open Appointment Date:09/21/2022 10:15:00 AM Scheduled Provider:Reyes VEGA MD Location:[facility] Appointment Type:URO [facility] Future Appointments Appointment Date:07/15/2022 10:40:00 AM Scheduled Provider:Dakotah Gallardo DO Location:[facility] Appointment Type:FM Open Appointment Date:07/22/2022 12:45:00 PM Scheduled Provider:Marilu Cornell PA-C Location[facility] [place] Appointment Type:Pain Management - Follow Up (FT) Appointment Date:09/21/2022 10:15:00 AM Scheduled Provider:Reyes VEGA MD Location:[facility] Appointment Type:URO [facility] Future Appointments Appointment Date:07/22/2022 12:45:00 PM Scheduled Provider:Marilu Cornell PA-C [facility] [place] App[facility] Type:Pain Management - Follow Up (FT) Appointment Date:08/12/2022 09:40:00 AM Scheduled Provider:Dakotah Gallardo DO Location:[facility] Appointment Type:FM Procedure Appointment Date:09/21/2022 10:15:00 AM Scheduled Provider:Reyes VEGA MD Location:[facility] Appointment Type:URO Office Visit [facility] Evaluation + Plan note Future Appointments Appointment Date:08/12/2022 09:40:00 AM Scheduled Provider:Dakotah Gallardo DO Location:[facility] Appointment Type:FM Procedure Appointment Date:08/23/2022 11:45:00 AM Scheduled Provider: Location:[facility] Appointment Type:Surgery FT Appointment Date:09/05/2022 12:45:00 PM Scheduled Provider:Marilu Cornell PA-C [facility] [place] Appointment Type:Pain Management - Follow Up (FT) Appointment Date:09/21/2022 10:15:00 AM Scheduled Provider:Reyes VEGA MD Location:[facility] Appointment Type:URO Office Visit [facility] Primary Care Evaluation + Plan note Future Appointments Appointment Date:08/23/2022 11:45:00 AM Scheduled Provider: Location:[facility] Appointment Type:Surgery FT Appointment Date:09/05/2022 12:45:00 PM Scheduled Provider:Marilu Cornell PA-C Location[facility] [place] Appointment Type:Pain Management - Follow Up (FT) Appointment Date:09/16/2022 09:40:00 AM Scheduled Provider:Dakotah Gallardo DO Location:[facility] Appointment Type:FM Open Appointment Date:09/21/2022 10:15:00 AM Scheduled Provider:Reyes VEGA MD Location:[facility] Appointment Type:URO Office Visit [facility] Primary Care Evaluation + Plan note Future Appointments Appointment Date:09/16/2022 09:40:00 AM Scheduled Provider:Dakotah Gallardo DO Location:[facility] Appointment Type:FM Open Appointment Date:09/21/2022 10:15:00 AM Scheduled Provider:Reyes VEGA MD Location:[facility] Appointment Type:URO Office Visit Appointment Date:10/24/2022 01:00:00 PM Scheduled Provider: [facility] Type:EMG Bilateral Lower Extremity [facility] Primary Care evaluation + Plan note Future Appointments Appointment Date:09/21/2022 10:15:00 AM Scheduled Provider:Reyes VEGA MD Location:[facility] Appointment Type:URO Office Visit Appointment Date:10/24/2022 01:00:00 PM Scheduled Provider: [facility] App[facility] Type:EMG Bilateral Lower Extremity Appointment Date:11/04/2022 09:40:00 AM Scheduled Provider:Dakotah Gallardo DO Location:[facility] Appointment Type:FM Procedure [facility] Primary Care Evaluation + Plan note Future Appointments Appointment Date:10/24/2022 01:00:00 PM Scheduled Provider: [facility] Type:EMG Bilateral Lower Extremity Appointment Date:11/04/2022 09:40:00 AM Scheduled Provider:Dakotah Gallardo DO Location:[facility] Appointment Type:FM Procedure [facility] Evaluation + Plan note Future Appointments Appointment Date:11/04/2022 09:40:00 AM Scheduled Provider:Dakotah Gallardo DO Location:[facility] Appointment Type:[facility] Future App[facility]ments Appointment Date:01/15/2024 03:30:00 PM Scheduled Provider: Location:[facility] Appointment Type:FM Medicare Wellness Subsequent [facility] Evaluation + Plan note Future Appointments Appointment Date:04/18/2023 02:20:00 PM Scheduled Provider:Dakotah Gallardo DO Location:[facility] Appointment Type:FM Open Appointment Date:01/15/2024 03:30:00 PM Scheduled Provider: Location:[facility] Appointment Type:FM Medicare Wellness Subsequent Diagnostic Tests Pending * Methylmalonic Acid 03/31/23 * JUSTEN w/Reflex if POS 03/31/23 * Protein Electrophoresis 03/31/23 [facility] Future Appointments Appointment Date:04/18/2023 02:20:00 PM Scheduled Provider:Dakotah Gallardo DO Location:[facility] Appointment Type: Open Appointment Date:01/15/2024 03:30:00 PM Scheduled Provider: Location:[facility] Appointment Type:FM Medicare Wellness Subsequent [facility] Evaluation + Plan note Future Appointments Appointment Date:07/04/2023 08:30:00 AM Scheduled Provider: Location:[facility] Appointment Type:Surgery FT Appointment Date:07/17/2023 02:00:00 PM Scheduled Provider:Marilu Cornell PA-C Location[facility] Appointment Type:Pain Management - Follow Up (FT) Appointment Date:01/15/2024 03:30:00 PM Scheduled Provider: Location:[facility] Appointment Type:FM Medicare Wellness Subsequent [facility] Evaluation + Plan note Future Appointments Appointment Date:07/17/2023 02:00:00 PM Scheduled Provider:Marilu Cornell PA-C Location:[facility] Appointment Type:Pain Management - Follow Up (FT) Appointment Date:01/15/2024 03:30:00 PM Scheduled Provider: Location:[facility] Appointment Type:FM Medicare Wellness [facility] Future Appointments Appointment Date:08/22/2023 09:00:00 AM Scheduled Provider:Dakotah Gallardo DO Location:[facility] Appointment Type:FM Procedure Appointment Date:01/15/2024 03:30:00 PM Scheduled Provider: Location:[facility] Appointment Type:FM Medicare Wellness Subsequent [facility] [place] Evaluation note* Diagnosis PULM HYPERTENSION- Primary Primary pulmonary hypertension [facility]* New patient [...] grammatical areas may persist related to the Grab[employer] software * Bashir Rivera MD * . [facility] Work Phone: Hospital course Narrative No data available for this section [facility] Hospital Discharge instructions No data available for this section [facility] Progress note No data available for this section [facility] Summary Purpose Family History No Family History [...] and content) DATE CREATED AUTHOR 11/21/2019 [facility] DATE CREATED AUTHOR AUTHOR'S ORGANIZ ATION 11/05/2020 [employer] DATE CREATED AUTHOR AUTHOR'S ORGANIZ ATION 12/02/2020 [facility] DATE CREATED AUTHOR AUTHOR'S ORGANIZ ATION 05/16/2023 [facility] EPIC DATE CREATED AUTHOR AUTHOR'S ANITA ADAMES 08/20/2023 [facility] Source Comments (unrecognize d section and content) In the event this informatio n is protected by the Federal Confidentiality of Alcohol and Drug Abuse Patient Records regulations: The Federal rules restrict any use of the information to criminally investigate or prosecute any alcohol or drug abuse patient.[facility] Care Team (unrecognized sect ion and content) Personnel Name: Aide BALL MD Address: [address] [place] [address] Personnel Name: Aide BALL MD Address: [address] [place] [address] [address] [place] [address] Personnel Name: Aide BALL MD Address: [address] [place] [address] [address] [place] [address] Personnel Name: Aide BALL MD Address: [address] [place] [address] [address] [place] [address] Personnel Name: Aide BALL MD Address: [address] [place] [address] Personnel Name: Aide BALL MD Address: [address] [place] [address] [address] [place] [address] Personnel Name: Dakotah Gallardo DO Address: [address] [place] [address] Personnel Name: Dakotah Gallardo DO Address: [address] [place] [address] Personnel Name: Dakotah Gallardo DO Address: Address: [address] [place] [address] Personnel Name: Marlys Bhardwaj MD Address: Address: [address] [place] [address] Personnel Name: Marlys Bhardwaj MD Address: Address: [address] [place], [place] [id number]- Personnel Name: Dakotah Gallardo DO Address: Address: [address] [place], [place] [id number] [place] [id number] Personnel Name: Dakotah Gallardo DO Address: Address: [address] [place], [place] [id number] Personnel Name: Dakotah Gallardo DO Address: Address: [address] [place], [place] [address] Personnel Name: Dakotah Gallardo DO Address: Address: [address] [place], [place] [id number] Personnel Name: Dakotah Gallardo DO Address: Address: [address] [place], [place] [id number] Personnel Name: Dakotah Gallardo DO Address: Address: [address] [place], [place] [id number] Personnel Name: Dakotah Gallardo DO Address: Address: [address] [place], [place] [id number] [place] [id number] Personnel Name: Dakotah Gallardo DO Address: Address: [address] [place], [place] [id number] [facility] A [address] Personnel Name: Dakotah Gallardo DO Address: Address: [address] [place], [place] [id number] [place] [id number] Personnel Name: Dakotah Gallardo DO Address: Address: [address] [place], [place] [id number] [place] [id number] Personnel Name: Dakotah Gallardo DO Address: Address: [address] [place], [place] [address] [place] [id number] Personnel Name: Dakotah Gallardo DO Address: Address: [address] [place], [place] [id number] [place] [id number] Personnel Name: Dakotah Gallardo DO Address: Address: [address] [place], [place] [id number] [place] [id number] Personnel Name: Dakotah Gallardo DO Address: Address: [address] [place], [place] [id number] [place] [id number] Personnel Name: Dakotah Gallardo DO Address: Address: [address] [place], [place] [address] [place] [id number] Personnel Name: Dakotah Gallardo DO Address: Address: [address] [place], [place] [address] [place] [id number] Personnel Name: Dakotah Gallardo DO Address: Address: [address] [place], [place] [address] [place] [id number] Personnel Name: Dakotah Gallardo DO Address: Address: [address] [place], [place] [id number] [place] [id number] Personnel Name: Dakotah Gallardo DO Address: Address: [address] [place], [place] [address] Personnel Name: Dakotah Gallardo DO Address: Address: [address] [place], [place] [address] Personnel Name: Dakotah Gallardo DO Address: Address: [address] [place], [place] [address] Personnel Name: Dakotah Gallardo DO Address: Address: [address] [place], [place] [id number] Personnel Name: Dakotah Gallardo DO Address: Address: [address] [place], [place] [address] [place] [id number] Personnel Name: Dakotah Gallardo DO Address: Address: [address] [place], [place] [address] [place] [id number] Personnel Name: Dakotah Gallardo DO Address: Address: [address] [place], [place] [address] [place] [id number] Personnel Name: Dakotah Gallardo DO Address: Address: [address] [place], [place] [address] Personnel Name: Dakotah Gallardo DO Address: Address: [address] [place], [place] [address] [place] [id number] Personnel Name: Dakotah Gallardo DO Address: Address: [address] [place], [place] [address] [place] [id number] Personnel Name: Dakotah Gallardo DO Address: Address: [address] [place], [place] [address] [place] [id number]- Personnel Name: Dakotah Gallardo DO Address: Address: [address] [place], [place] [address] [place] [id number] Personnel Name: Dakotah Gallardo DO Address: Address: [address] [place], [place] [address] [place] [id number] Personnel Name: Dakotah Gallardo DO Address: Address: [address] [place] [place] [address]- Personnel Name: Dakotah Gallardo DO Address: Address: [address] [place] [address]- Personnel Name: Dakotah Gallardo DO Address: Address: [address] [place], [place] [id number] Personnel Name: Dakotah Gallardo DO Address: Address: [address] [place], [place] [id number] Personnel Name: Dakotah Gallardo DO Address: Address: [address] [place], [place] [id number] Personnel Name: Dakotah Gallardo DO Address: Address: [address] [place], [place] [id number] Personnel Name: Dakotah Gallardo DO Address: Address: [address] [place], [place] [id number] Personnel Name: Dakotah Gallardo DO Address: Address: [address] [place], [place] [id number] Personnel Name: Dakotah Gallardo DO Address: Address: [address] [place], [place] [id number] Personnel Name: Dakotah Gallardo DO Address: Address: [address] [place], [place] [id number] Personnel Name: Dakotah Gallardo DO Address: Address: [address] [place], [place] [id number] Personnel Name: Dakotah Gallardo DO Address: Address: [address] [place], [place] [address] FOR RECORDS PERTAINING TO PATIENTS WHO ARE [...] BE BASED ON THE PRIMARY CLINICAL RECORDS. [facility] [employer] [facility]. provides no warranty or guarantee of the accuracy or completeness of information in this document.
== END 2023-08-21 07:56 | disposition home or self-care (01) ==
LOC: CT 07:56
PROVIDERS: PCP Family Medicine Adult Medicine; Visit Provider Physician Assistant
DX: R10.9 Unspecified abdominal pain (principal)
CPT/HCPCS: 74176

== ENCOUNTER 2024-01-29 10:28 | Outpatient (RCR) | payer MEDICARE, OTHER, SELFPAY | END 2024-03-12 15:03 | disposition home or self-care (01) | LOC: PT 10:28 | PROVIDERS: PCP Family Medicine Adult Medicine; Visit Provider Nurse Practitioner Family | DX: M25.512 Pain in left shoulder (principal) | CPT/HCPCS: 97035; 97110; 97140; 97161 ==

== ENCOUNTER 2024-03-13 09:42 | Outpatient (RCR) | payer MEDICARE, OTHER, SELFPAY | END 2024-04-16 12:27 | disposition home or self-care (01) | LOC: PT 09:42 | PROVIDERS: PCP Family Medicine Adult Medicine | DX: M25.512 Pain in left shoulder (principal); M25.511 Pain in right shoulder; M54.2 Cervicalgia; M79.604 Pain in right leg; M79.605 Pain in left leg; M19.90 Unspecified osteoarthritis, unspecified site | CPT/HCPCS: 97110; 97112; 97140 ==

== ENCOUNTER 2024-08-05 09:31 | Emergency (ER) | payer MEDICARE, OTHER, SELFPAY ==
--- OUTSIDE RECORDS SUMMARY | 2024-07-25 16:00 | XMS_ITS ---
Author Name Auto Generated Organization OHIP Care Team Providers Care Rural Route Mail Carrier Name Role Phone Dakotha Gallardo Attending Unavailable Dakotah Gallardo Attending Unavailable Dakotah Gallardo Attending Unavailable Dakotah Gallardo Attending Unavailable Rosmery Hoover Attending Unavailable Dakotah Gallardo Admitting Unavailable CARLITA, Aide A Primary Care Unavailabl e CARLITA Aide A Primary Care Unavailabl e Dakotah Gallardo Attending Unavailable Dakotah Gallardo Attending Unavailable Dakotah Gallardo Attending Unavailable Dakotah Gallardo Referring Unavailable Aneta, Marilu Attending Unavailable Aneta, Marilu Admitting Unavailable Dakotah Gallardo Referring Unavailable Aneta, Marilu Attending Unavailable Aneta, Marilu Admitting Unavailable Dakotah Gallardo Referring Unavailable Aneta, Marilu Attending Unavailable Aneta, Marilu Admitting Unavailable Dakotah Gallardo Referring Unavailable Cornell, Marilu Attending Unavailable Aneta, Marilu Admitting Unavailable Dakotah Gallardo Referring Unavailable Aneta, Marilu Attending Unavailable Aneta, Marilu Admitting Unavailable Dakotah Gallardo Attending Unavailable Dakotah Gallardo Attending Unavailable Dakotah Gallardo Attending Unavailable Dakotah Gallardo Attending Unavailable Dakotah Gallardo Attending Unavailable Zachariah Fletcher Referring Unavailable Zachariah Fletcher Attending Unavailable Zachariah Fletcher Referring Unavailable Zachariah Fletcher Attending Unavailable Zachariah Fletcher Referring Unavailable Zachariah Fletcher Attending Unavailable Marilu Cornell Attending Unavailable Marilu Cornell Admitting Unavailable Rosmery Hoover H Attending Unavailable Dakotah Gallardo Attending Unavailable Dakotah Gallardo Attending Unavailable Dakotah Gallardo Attending Unavailable RANI CORCORAN Attending Unavailable RANI CORCORAN Attending Unavailable PROBLEMS No Problem Records Found PROCEDURES No Procedure Records Found RESULTS POPULATION HEALTH Observed: 07/26/2024 2:45 PM Status: F Source: [facility] Population Health Case Information Case Priority: None Programs: -- Referral Source: Mine Engineer Referral Reason: Disease management Case Type: Chronic Care Management Risk Score: -- Case Status: Active (January 03, 2019) Date Assigned: December 19, 2018 Assigned By: Brice Stephenson RN Date Enrolled: January 03, 2019 Assigned Primary Personnel: Dereck Rosario RN Assigned Secondary Personnel: Linda Wing RN Case Physician: Dakotah Gallardo DO Problems Ongoing 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 Incontinence without sensory awareness Insomnia Irritable bowel syndrome with predominant constipation Lumbar radiculopathy, right Major depressive disorder, recurrent, mild Mild cognitive impairment Mixed incontinence OAB (overactive bladder) Obesity due to excess calories Other urethral stricture, female Pain of right sacroiliac joint Patient has healthcare proxy and living will Peripheral neuropathy Resting tremor RLS (restless legs syndrome) S/P knee replacement Severe obstructive sleep apnea Shoulder pain Somatic dysfunction of abdominal region Somatic dysfunction of cervical region Somatic dysfunction of lower extremities Somatic dysfunction of lumbar region Somatic dysfunction of rib cage region Somatic dysfunction of sacral spine Somatic dysfunction of thoracic region Spasm of lumbar paraspinous muscle Spinal stenosis of lumbar region Stage 3a chronic kidney disease (CKD) Stooped posture Thoracic aorta atherosclerosis Tremor Wears hearing aid in both ears Historical Abdominal pain, generalized Abnormal urinalysis Body mass index (BMI) of 31.0-31.9 in adult Bronchitis with bronchospasm Cervical radiculopathy Chest pain Dizziness WINTERS (dyspnea on exertion) Exposure to second hand smoke Frequent urination Hernia of abdominal wall History of UTI Leg edema Pain in back 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 Rib pain on right side Right hip pain Screening mammogram, encounter for Urinary urgency Procedure/Surgical History Epidural injection of lumbar spine using fluoroscopic guidance (07/02/2024), Injection of nerve root of lumbar spine using fluoroscopic guidance (06/03/2024), Injection (01/15/2024), Injection of nerve root of lumbar spine using fluoroscopic guidance (12/21/2023), Injection of nerve root of sacral spine [...] callus, mole removal, Tubal ligation. Home Medications acetaminophen-oxycodone 325 mg-5 mg Tab, 1 tab(s), Oral, TID amLODIPine 5 mg Tab, See Instructions cyclobenzaprine 5 mg Tab, 5 mg= 1 tab(s), Oral, BID, 12 refills Dulcolax Tab-EC, 2-3 tabs, Oral, Daily Handicap Placard, See Instructions hydrochlorothiazide-triamterene 25 mg-37.5 mg Tab, See Instructions ibuprofen, 800 mg, Oral Misc DME Prescription, See Instructions nebulizer supplies, See Instructions, 11 refills omeprazole 20 mg Cap-DR, See Instructions pregabalin 225 mg oral capsule, 225 mg= 1 cap(s), Oral, BID, 1 refills Tylenol, 500 mg, Oral, q6hr, Not taking Allergies Chocolate (Anaphylaxis) Adhesive Bandage (Itching, Rash) [...] Previous treatment: None. Household tobacco concerns: No., 01/09/2024 Family History Alcoholism: Father. Metastatic cancer: Mother. Parkinson disease: Father. Parkinson's disease: Father. Primary malignant neoplasm of colon: Mother. Screenings and Assessments 01/03/19 12:08:00 Result Name Value Comment Phone Call Monitoring Consent Agreed to continue call Phone Verification Patient Information Full name, street address and date of verified CM Program Enrollment Written consent completed 01/03/19 12:00:00 Result Name Value Comment HIPPA Verified Type of Contact In person in the office Information Given by Patient CM Preferred Spoken Language Comoran CM Preferred Written Language Swiss Preferred Communication Mode Verbal Ability to Read/Write Able to read, Able to write Preferred Method of Contact Cell Best Time to Visit or Contact 10-1 pm, 1-5 pm Best Day to Visit or Contact No preference Preferred Way to Send PHI Standard mail Lives In Single level home Number in Household 3 Lives with handicapped brother and daughter. 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 Start Date: 2018 Target: - - Status: - - Barriers: - - Comments: - - Intervention Frequency Status Credit Or Loans Officer Use inhaler as prescribed by PCP - - Done - - Start Water aerobic exercises beginning 01/08/19 2 days per week to include water walking - - Done - - Use nebulizer machine as needed for SOB for COPD. - - Progressing - - 10/12/21 Fill Rx for Rescue pack and call CN if starts medications - - Done - - Goal: Will have improvement in lower leg swelling Start Date: 2020 Target: - - Status: - - Barriers: - - Comments: - - Intervention Frequency Status Credit Or Loans Officer Decrease sodium intake to 2000 mg daily, do not use salt shaker. - - Progressing - - Weigh daily, record and notify CN of 3# weight gain in day or %3 over a week. - - Not done - - Keep appointment with Dr. Sifuentes on 10/13/20 at 0920 - - Done - - 06/08/21 Patient is going to try to return to water aerobics once per week, - - Not done - - Keep legs elevated when sitting - - Progressing - - Goal: Reduce frequency of Urinary Tract infections Start Date: 2021 Target: - - Status: - - Barriers: - - Comments: - - Intervention Frequency Status Credit Or Loans Officer Call office at first signs and symptoms of UTI for urinalysis. - - Progressing - - Drink 64 oz of fluids each day to stay hydrated. - - Progressing - - Go to restroom at first sign of urinary urge and not hold. - - Progressing - - See urologist as needed. - - Progressing - - Botox injections for urinary incontinence every 6 months as needed. - - Done - - Goal: Evaluate Options for hearing aids Start Date: 2018 Target: - - Status: Met Barriers: - - Comments: - - Intervention Frequency Status Credit Or Loans Officer Appointment with [facility] on 01/04/19 to discuss payment plan options for hearing aids - - Done - - Goal: Evaluate areas to have added emotional support Start Date: 2018 Target: - - Status: Met Barriers: - - Comments: - - Intervention Frequency Status Credit Or Loans Officer Discuss with PCP options to support her residual stroke symptoms including crying more frequently - - Done - - Goal: Improve pain management for hernia, generalized muscle and joint pain and paralytic diapraghm. Start Date: 2018 Target: - - Status: Met Barriers: - - Comments: - - Intervention Frequency Status Credit Or Loans Officer Start water therapy on January 08 and attend every Monday and each week - - Done - - Patient to call Chiropractor to have diapraghm put back in place as needed. - - Progressing - - Goal: Will have relief from constipation Start Date: 2019 Target: - - Status: Met Barriers: - - Comments: - - Intervention Frequency Status Credit Or Loans Officer Take OTC MiraLax 17 gm 1.5 caps BID - - Done - - Follow up with Title Supervisor as needed. - - Done - - Take Trulance 3 mg daily for constipation - - Done - - Right hernia repari surgery scheduled for 09/07/20. - - Done - - Take Ducolax 2 tab a bedtime as directed - - Done - - Progress Note 07/25/2024 30 CCM Update for July 2024. The visit started at 1630. Patient in office with daughter Geneva for appointment with Dr Gallardo. Patient reports she is doing better today. She has been experiencing spasms all over. Some days they last all day. Today she has not had any. She started using a walker to prevent her from falling. Patient has had two recent falls. The first one was caused by a trip over the dog. She hit the side of her head in the right eye area. She said it did swell and bruise but did not bleed. She did not want to go to the ER. Her daughter did take her work so she could watch her throughout the day; there were no issues. The second fall was due to the spasm she is having. She did not hit her or had any injuries. She has not had any relief of pain with the injections she has been getting. Patient reports she was told she needs surgery. Patient is going to request a referral to [facility] pain management and wishes to have [facility] perform surgery if needed. Patient???s blood pressure today was 114/60 and spo2 was 91% on room air. She reports she only wears oxygen at night if her pulse ox is reading at below 90%; she does check it right before she goes to bed. She does have swellings to her left foot/ankle area. Patient wishes to continue monthly CCM calls. CN will call patient again in August 2024. Patient will monitor and correct fall risks in her home, take medications as prescribed, keep scheduled appointment. The visit ended at 1700. Communication Events Date: July 25, 2024 Method: In-person Type: -- Duration (min): 30 Outcome: Case discussion Contact Type: Patient Contact Name: MATEO [place] Notes: [facility] update for July 2024 - see case summary note. Created By: Linda Wing RN Date: July 09, 2024 Method: Phone call Type: Inbound Duration (min): 2 Outcome: Case discussion Contact Type: Patient emergency contact Contact Name: Geneva womack Notes: [facility] Update for June 2024 - see case summary note Created By: Linda Wing RN Date: July 09, 2024 Method: Phone call Type: Outbound Duration (min): 1 Outcome: Left message-voicemail Contact Type: Patient Contact Name: MATEO [place] Notes: [facility] U[date for June 2024 - attempted to call patient to see if she has gotten any relief since see pain management - no answer - left message along with cn contact info Created By: Linda Wing RN Date: July 05, 2024 Method: Phone call Type: Outbound Duration (min): 1 Outcome: Case discussion Contact Type: Patient emergency contact Contact Name: Geneva womack Notes: [facility] June 2024 - see case summary note Created By: Linda Wing RN Date: July 03, 2024 Method: Phone call Type: Outbound Duration (min): 1 Outcome: Left message-voicemail Contact Type: Patient emergency contact Contact Name: Geneva womack Notes: [facility] Update - called to check to see how patient is doing - no answer - left message along with cn contact info Created By: Linda Wing RN Date: June 20, 2024 Method: Phone call Type: Outbound Duration (min): 7 Outcome: Case discussion Contact Type: Patient emergency contact Contact Name: Geneva womack Notes: [facility] Update - june 2024 - see case summary note Created By: Linda Wing RN Date: June 20, 2024 Method: Phone call Type: Outbound Duration (min): 1 Outcome: Left message-voicemail Contact Type: Patient Contact Name: MATEO [place] Notes: [facility] Update - called patient for monthly update - no answer - left message along with cn contact info Created By: Linda Wing RN Date: June 05, 2024 Method: Phone call Type: Outbound Duration (min): 4 Outcome: Case discussion Contact Type: Patient emergency contact Contact Name: [place] womack Notes: called to see how she was progressing since procedure with pain management - see case summary note Created By: Linda Wing RN Date: May 24, 2024 Method: Phone call Type: Outbound Duration (min): 3 Outcome: Case discussion Contact Type: Patient Contact Name: MATEO [place] Notes: called to check in on patient's pain. see case summary note Created By: Linda Wing RN Date: May 21, 2024 Method: Phone call Type: Inbound Duration (min): 13 Outcome: Case discussion Contact Type: Patient emergency contact Contact Name: [place] womack Notes: CCM Update - May 2024 - see case summary note Created By: Linda Wing RN Date: May 10, 2024 Method: Phone call Type: Outbound Duration (min): 23 Outcome: Case discussion Contact Type: Patient Contact Name: MATEO YN Notes: CCM Update for April 2024 - see case summary note Created By: Linda Wing RN Date: April 08, 2024 Method: Phone call Type: Outbound Duration (min): 14 Outcome: Case discussion Contact Type: Patient Contact Name: MATEO [place] Notes: CCM Update for March 2024 -see case summary note Created By: Linda Wing RN Date: February 23, 2024 Method: Phone call Type: Outbound Duration (min): 1 Outcome: Left message-voicemail Contact Type: Patient Contact Name: MATEO [place] Notes: [facility] Update for February 2024 - no answer - left message along with cn contact info Created By: Linda Wing RN Date: February 06, 2024 Method: Phone call Type: Outbound Duration (min): 1 Outcome: Left message-voicemail Contact Type: Patient Contact Name: MATEO [place] Notes: [facility] update - january 2024 attempted to call patient for monthly follow up - no answer - left message along with cn contact info Created By: Linda Wing RN Date: January 11, 2024 Method: Phone call Type: Outbound Duration (min): 1 Outcome: Left message-voicemail Contact Type: Patient Contact Name: MATEO [place] Notes: [facility] Update - Called patient for December 2023 update - no answer - left message along with cn contact info Created By: Linda Wing RN Date: November 24, 2023 Method: In-person Type: -- Duration (min): 37 Outcome: Case discussion Contact Type: Patient Contact Name: MATEO [place] Notes: [facility] November 2023 update - see case summary note Created By: Linda Wing RN Date: November 23, 2023 Method: Phone call Type: Outbound Duration (min): 1 Outcome: Case discussion Contact Type: Patient emergency contact Contact Name: Geneva - daughter Notes: [facility] Nov 2023 - spoke to daughter - they have appt tomorrow 11/24/2023 and they will speak to me then Created By: Linda Wing RN Date: October 24, 2023 Method: Phone call Type: Outbound Duration (min): 1 Outcome: Left message-voicemail Contact Type: Patient emergency contact Contact Name: [place] Notes: [facility] [place] - called for monthly follow up call - left message along with cn contact information Created By: Linda Wing RN Date: June 09, 2023 Method: Phone call Type: Outbound Duration (min): 7 Outcome: Case discussion Contact Type: academic affairs coordinator Contact Name: Dereck Rosario RN Notes: Called for [facility] CCM. See case summary note. Created By: Dereck Rosario RN Date: April 28, 2023 Method: Phone call Type: Outbound Duration (min): 3 Outcome: Case discussion Contact Type: academic affairs coordinator Contact Name: Dereck Rosario RN Notes: Called for Fe CCM. See case summary note. Created By: Dereck Rosario RN Date: April 05, 2023 Method: Phone call Type: Outbound Duration (min): 15 Outcome: Case discussion Contact Type: academic affairs coordinator Contact Name: Dereck Rosario RN Notes: Called for Peña CCM. See case summary note. Created By: Dereck Rosario RN Date: March 08, 2023 Method: Phone call Type: Outbound Duration (min): 20 Outcome: Case discussion Contact Type: academic affairs coordinator Contact Name: Dereck Rosario RN Notes: Called for Dec CCM. See case summary note. Created By: Dereck Rosario RN Date: March 08, 2023 Method: Phone call Type: Outbound Duration (min): 1 Outcome: Left message-voicemail Contact Type: academic affairs coordinator Contact Name: Dereck Rosario RN Notes: Called for Dec CCM. Left message asking for return phone call. Created By: Dereck Rosario RN Date: January 13, 2023 Method: Phone call Type: Inbound Duration (min): 10 Outcome: Case discussion Contact Type: Patient Contact Name: ANANT MATEO Todd Notes: CCM patient called, see FT summary note. Created By: Aminata Mendieta RN Date: January 12, 2023 Method: Phone call Type: Outbound Duration (min): 10 Outcome: Case discussion Contact Type: Complex daycare managerproject manager finance Name: Aminata Mendieta RN Notes: Called patient for CCM follow-up, spoke with daughter see FT summary note. Created By: Aminata Mendieta RN Date: November 23, 2022 Method: Phone call Type: Outbound Duration (min): 1 Outcome: Left message-voicemail Contact Type: Complex daycare managerproject manager finance Name: Aminata Mendieta RN Notes: Attempted to call daughter cell phone for CCM follow-up, no answer, left message asking for a return call. Created By: Aminata Mendieta RN Date: November 23, 2022 Method: Phone call Type: Outbound Duration (min): 1 Outcome: Left message-voicemail Contact Type: Complex daycare managerproject manager finance Name: Aminata Mendieta RN Notes: Attempted to call patient for CCM, no answer left message asking for a return call. Created By: Aminata Mendieta RN Date: August 31, 2022 Method: Phone call Type: Outbound Duration (min): 17 Outcome: Case discussion Contact Type: Pharmacist Contact Name: Nelli Dhillon PharmD Notes: Medication review with pharmacy. See SOAP note. Created By: Aminata Mendieta RN Date: August 23, 2022 Method: Phone call Type: Outbound Duration (min): 7 Outcome: Case discussion Contact Type: Medical facility Contact Name: Aminata Mendieta Notes: spoke with Iris from Patient expereince, please see FT summary note. Created By: Aminata Mendieta RN Date: August 23, 2022 Method: Phone call Type: Outbound Duration (min): 16 Outcome: Case discussion Contact Type: Complex daycare managerproject manager finance Name: Aminata Mendieta RN Notes: Daughter left 2 messages while CCN on vacation, returned call see FT summary note. Created By: Aminata Mendieta RN Date: August 01, 2022 Method: Phone call Type: Inbound Duration (min): 7 Outcome: Case discussion Contact Type: Patient advocate Contact Name: [place] Ny Notes: Daughterr called with updates. See FT summary note. Created By: Aminata Mendieta RN Date: July 21, 2022 Method: Phone call Type: Outbound Duration (min): 15 Outcome: Case discussion Contact Type: Complex daycare managerproject manager finance Name: Aminata Mendieta RN Notes: See FT summary note. Created By: Aminata Mendieta RN Date: July 15, 2022 Method: Phone call Type: Outbound Duration (min): 1 Outcome: Left message-voicemail Contact Type: Complex daycare managerproject manager finance Name: Aminata Mendieta RN Notes: Daughter left message at 1030 asking for a return call, called daughter, no answer, left message to call again. Patient was seen by Dr. Hernandez today in [facility]. Created By: Aminata Mendieta RN Date: June 22, 2022 Method: Phone call Type: Outbound Duration (min): 20 Outcome: Case discussion Contact Type: Complex daycare managerproject manager finance Name: Aminata Mendieta RN Notes: Daughter left message asking for a return call, called patient, spoke with daughter see FT summary note. Created By: Aminata Mendieta RN Date: May 25, 2022 Method: Phone call Type: Inbound Duration (min): 1 Outcome: Case discussion Contact Type: Patient Contact Name: M[place]O [place] Notes: Daughter left message that she started Rescue pack and would like a generic refill for Dexilant, see message center note. Created By: Aminata Mendieta RN Date: May 19, 2022 Method: Phone call Type: Inbound Duration (min): 3 Outcome: Case discussion Contact Type: Patient advocate Contact Name: [place] Ny Notes: Daughter called with information for help at hand for Dexilant. see message center note. Created By: Aminata Mendieta RN Date: May 17, 2022 Method: Phone call Type: Inbound Duration (min): 22 Outcome: Case discussion Contact Type: Patient advocate Contact Name: [place] Ny Notes: Daughter Geneva calls with concerns see message center note. Created By: Aminata Mendieta RN Date: May 10, 2022 Method: Phone call Type: Outbound Duration (min): 10 Outcome: Case discussion Contact Type: Complex daycare managerproject manager finance Name: Aminata Mendieta RN Notes: Daughter left message asking for a return call. Called daughter, see FT summary note. Created By: Aminata Mendieta RN Date: March 25, 2022 Method: Phone call Type: Inbound Duration (min): 10 Outcome: Case discussion Contact Type: Patient Contact Name: M[place]O [place] Notes: CCM patient calls with complaints of thrush again, see message center note. Created By: Aminata Mendieta RN Date: March 16, 2022 Method: Phone call Type: Outbound Duration (min): 5 Outcome: Case discussion Contact Type: Complex daycare managerproject manager finance Name: Aminata Mendieta RN Notes: Called daughter back regarding Prednsone prescription. See message center note. Created By: Aminata Mendieta RN Date: March 16, 2022 Method: Phone call Type: Outbound Duration (min): 1 Outcome: Case discussion Contact Type: Complex daycare managerproject manager finance Name: Juani De La Garza MA Notes: [facility] called patient about prescription for Prednisone. Created By: Aminata Mendieta RN Date: March 15, 2022 Method: Phone call Type: Outbound Duration (min): 1 Outcome: Left message-voicemail Contact Type: Complex daycare managerproject manager finance Name: Aminata Mendieta RN Notes: Left message that Pulmonology office should call tomorrow to schedule patient. Created By: Aminata Mendeita RN Date: March 15, 2022 Method: Phone call Type: Outbound Duration (min): 3 Outcome: Case discussion Contact Type: Specialist Contact Name: Aminata Mendieta RN Notes: Called Pulmonology to see about referral for patient, see message center note. Created By: Aminata Mendieta RN Date: March 04, 2022 Method: Phone call Type: Outbound Duration (min): 6 Outcome: Case discussion Contact Type: Complex daycare managerproject manager finance Name: Aminata Mendieta RN Notes: Called [facility] patient for follow-up on thrush, see FT summary note. Created By: Aminata Mendieta RN Date: February 21, 2022 Method: Phone call Type: Inbound Duration (min): 15 Outcome: Case discussion Contact Type: Patient Contact Name: ANANT MATEO Peyton Notes: CCM patient called started COPD rescue pack 02/18/22. See FT summary note. Created By: Aminata Mendieta RN Date: February 15, 2022 Method: Phone call Type: Outbound Duration (min): 1 Outcome: Case discussion Contact Type: Complex daycare managerproject manager finance Name: Aminata Mendieta RN Notes: CCM patient called for follow-up and to schedule appointment, no answer, left voicemail asking for a return call. Created By: Aminata Mendieta RN Date: January 24, 2022 Method: Phone call Type: Outbound Duration (min): 11 Outcome: Case discussion Contact Type: Complex daycare managerproject manager finance Name: Aminata Mendieta RN Notes: Called CCM patient for follow-up. Created By: Aminata Mendieta RN Date: January 13, 2022 Method: In-person Type: -- Duration (min): 7 Outcome: Case discussion Contact Type: Complex daycare managerproject manager finance Name: Aminata Mendieta RN Notes: Patient in office asking for samples of Stiolto Respimat. Created By: Aminata Mendieta RN Date: January 12, 2022 Method: Phone call Type: Outbound Duration (min): 3 Outcome: Case discussion Contact Type: Complex daycare managerproject manager finance Name: Debbi Hammer Notes: See message center note. Created By: Aminata Mendieta RN Date: January 12, 2022 Method: Phone call Type: Inbound Duration (min): 6 Outcome: Case discussion Contact Type: Patient advocate Contact Name: [place] Ny Notes: Daughter called patient started COPD Rescue pack on 01/09/22, see message center note. Created By: Aminata Mendieta RN Date: December 28, 2021 Method: Phone call Type: Inbound Duration (min): 25 Outcome: Case discussion Contact Type: Patient advocate Contact Name: Geneva Ny Notes: daughter called with updates and needs for medications. See message center note. Created By: Aminata Mendieta RN Date: November 30, 2021 Method: Phone call Type: Outbound Duration (min): 18 Outcome: Case discussion Contact Type: Complex daycare managerproject manager finance Name: Aminata Mendieta RN Notes: Called CCM patient for follow-up, see FT summary note. Created By: Aminata Mendieta RN Date: November 23, 2021 Method: Phone call Type: Inbound Duration (min): 5 Outcome: Case discussion Contact Type: Patient advocate Contact Name: -- Notes: Daughter called regarding patient breathing and samples of Stioloto inhaler. See FT summary note. Created By: Aminata Mendieta RN Date: November 02, 2021 Method: Phone call Type: Outbound Duration (min): 1 Outcome: Left message-voicemail Contact Type: Complex daycare managerproject manager finance Name: Aminata Mendieta RN Notes: Left message regarding samples and [facility] phone number and to call if any questions. Created By: Aminata eMndieta RN Date: November 02, 2021 Method: Phone call Type: Outbound Duration (min): 7 Outcome: Case discussion Contact Type: Complex daycare managerproject manager finance Name: -- Notes: CCM follow-up see FT summary note. Created By: Aminata Mendieta RN Date: October 13, 2021 Method: Phone call Type: Outbound Duration (min): 3 Outcome: Case discussion Contact Type: Complex daycare managerproject manager finance Name: Aminata Mendieta RN Notes: Called daughter and explained information regrding [facility] incontinence program. See Ft summary note. Created By: Aminata Mendieta RN Date: October 13, 2021 Method: Phone call Type: Outbound Duration (min): 4 Outcome: Case discussion Contact Type: Vendor Contact Name: Enzo Notes: Called [facility] to see if there was any coverage for incontinence supplies. Medicare does nort cover but they have incontinence program. See FT summary note. Created By: Aminata Mendieta RN Date: October 13, 2021 Method: Phone call Type: Outbound Duration (min): 10 Outcome: Case discussion Contact Type: Complex daycare managerproject manager finance Name: Aminata Mendieta RN Notes: Called [facility] patient to confirm cancellation of appointment and schedule to establish with Dr. Gallardo Created By: Aminata Mendieta RN Date: September 30, 2021 Method: Phone call Type: Outbound Duration (min): 4 Outcome: Case discussion Contact Type: Complex daycare managerproject manager finance Name: Aminata Mendieta RN Notes: Called CCM patient for follow-up after leaving ED AMA yesterday. See message center note. Created By: Aminata Mendieta RN Date: September 29, 2021 Method: Phone call Type: Inbound Duration (min): 6 Outcome: Case discussion Contact Type: Patient advocate Contact Name: [place] Ny Notes: Patient daughter called patient having chest pain, see message center note. Created By: Aminata Mendieta RN Date: September 23, 2021 Method: Phone call Type: Outbound Duration (min): 6 Outcome: Case discussion Contact Type: Complex daycare managerproject manager finance Name: Aminata Mendieta RN Notes: Called CCM for update on cough, see message center note. Created By: Aminata Mendieta RN Date: September 21, 2021 Method: Phone call Type: Outbound Duration (min): 3 Outcome: Case discussion Contact Type: Complex daycare managerproject manager finance Name: Aminata Mendieta RN Notes: Called patient rescheduled appointment and advised to restart Mucinex and chaeck with pharmacy this afternoon for new prescriptions. See message center note. Created By: Aminata Mendieta RN Date: September 21, 2021 Method: Phone call Type: Outbound Duration (min): 3 Outcome: Case discussion Contact Type: Complex daycare managerproject manager finance Name: Aminata Mendieta RN Notes: Patient could not wait on hold for Telehealth visit. Will speak with Dr. sifuentes and call back with plan of care. Created By: Aminata Mendieta RN Date: September 21, 2021 Method: Phone call Type: Outbound Duration (min): 2 Outcome: Case discussion Contact Type: Complex daycare managerproject manager finance Name: Aminata Mendieta RN Notes: Called patient to schedule appointment per Dr. Sifuentes. See message center note. Created By: Aminata Mendieta RN Date: September 20, 2021 Method: Phone call Type: Outbound Duration (min): 2 Outcome: Case discussion Contact Type: Complex daycare managerproject manager finance Name: Aminata Mendieta RN Notes: Called daughter and explained message sent to Dr. Sifuentes and if patient symptoms worsen please take to [facility], will call with answer. Created By: Aminata Mendieta RN Date: September 20, 2021 Method: Phone call Type: Inbound Duration (min): 1 Outcome: Case discussion Contact Type: Patient advocate Contact Name: [place] Ny Notes: Daughter left message about productive cough, see message center note. Created By: Aminata Mendieta RN Date: September 09, 2021 Method: Phone call Type: Outbound Duration (min): 25 Outcome: Case discussion Contact Type: Complex daycare managerproject manager finance Name: Aminata Mendieta RN Notes: [facility] follow-up, see FT summary note. Created By: Aminata Mendieta RN Date: September 08, 2021 Method: Phone call Type: Outbound Duration (min): -- Outcome: No answer Contact Type: Complex daycare managerproject manager finance Name: Aminata Mendieta RN Notes: Attempted to call daughter to notify of samples available, no answer, no voicemail, Will try again. Created By: Aminata Mendieta RN Date: August 30, 2021 Method: Phone call Type: Inbound Duration (min): 4 Outcome: Case discussion Contact Type: Patient advocate Contact Name: Demetria averycuso Notes: See message center note regarding samples of Stiolto Created By: Aminata Mendieta RN Date: August 05, 2021 Method: Phone call Type: Outbound Duration (min): 10 Outcome: Case discussion Contact Type: Complex daycare managerproject manager finance Name: Aminata Mendieta RN Notes: [facility] follow-up, see FT summary note. Created By: Aminata Mendieta RN Date: July 28, 2021 Method: Phone call Type: Outbound Duration (min): 5 Outcome: Case discussion Contact Type: Complex daycare managerproject manager finance Name: Aminata Mendieta RN Notes: Called daughter back, see message center note. Created By: Aminata Mendieta RN Date: July 28, 2021 Method: Phone call Type: Inbound Duration (min): 1 Outcome: Case discussion Contact Type: Patient advocate Contact Name: Geneva Ny Notes: Daughter left message asking for a return call. Created By: Aminata Mendieta RN Date: July 19, 2021 Method: Phone call Type: Outbound Duration (min): 5 Outcome: Case discussion Contact Type: Complex daycare managerproject manager finance Name: Aminata Mendieta RN Notes: Called CCM patient regarding cough, see message center note. Created By: Aminata Mendieta RN Date: July 16, 2021 Method: Phone call Type: Inbound Duration (min): 11 Outcome: Case discussion Contact Type: Patient Contact Name: MATEO [place] Notes: Patient returened call with concerns, see message center note. Created By: Aminata Mendieta RN Date: July 16, 2021 Method: Phone call Type: Outbound Duration (min): -- Outcome: Left message-voicemail Contact Type: Complex daycare managerproject manager finance Name: Aminata Mendieta RN Notes: Attempted to call patint for CCM follow-up, no answer, left message asking for a return call. Created By: Aminata Mendieta RN Date: June 30, 2021 Method: Phone call Type: Outbound Duration (min): 22 Outcome: Case discussion Contact Type: Complex daycare managerproject manager finance Name: Aminata Mendieta RN Notes: CCM monthly follow-up. See FT summary note. Created By: Aminata Mendieta RN Date: June 22, 2021 Method: Phone call Type: Outbound Duration (min): 3 Outcome: Case discussion Contact Type: Complex daycare managerproject manager finance Name: Aminata Mendieta RN Notes: Called CCM patient for bi-weekly follow-up. See FT summary note. Created By: Aminata Mendieta RN Date: June 14, 2021 Method: Phone call Type: Outbound Duration (min): 1 Outcome: Left message-voicemail Contact Type: Complex daycare managerproject manager finance Name: Aminata Mendieta RN Notes: Left message explaining prescription had refill at [facility] and to call if any problems. Created By: Aminata Mendieta RN Date: June 14, 2021 Method: Phone call Type: Inbound Duration (min): 1 Outcome: Case discussion Contact Type: Patient advocate Contact Name: [place] Ny Notes: Left message asking for a refill of Albuterol and return call. Created By: Aminata Mendieta RN Date: June 08, 2021 Method: Phone call Type: Outbound Duration (min): 15 Outcome: Case discussion Contact Type: Complex daycare managerproject manager finance Name: Aminata Mendieta RN Notes: Called CCM patient for follow-up after Botox injections. See FT summary note. Created By: Aminata Mendieta RN Date: May 24, 2021 Method: Phone call Type: Inbound Duration (min): 13 Outcome: Case discussion Contact Type: Patient advocate Contact Name: Geneva Ny Notes: Daughter of [facility] patient called regarding a technicians and trades workers referral. SEe FT summary note. Created By: Aminata Mendieta RN Date: May 10, 2021 Method: Phone call Type: Outbound Duration (min): 5 Outcome: Case discussion Contact Type: Complex daycare managerproject manager finance Name: Aminata Mendieta RN Notes: CCm follow-up, see FT summary note. Created By: Aminata Mendieta RN Date: April 19, 2021 Method: Phone call Type: Outbound Duration (min): 1 Outcome: Case discussion Contact Type: Complex daycare managerproject manager finance Name: Aminata Mendieta RN Notes: Called daughter regrding samples of Stioloto Respimat samples. See message center note. Created By: Aminata Mendieta RN Date: April 16, 2021 Method: Phone call Type: Outbound Duration (min): 14 Outcome: Case discussion Contact Type: Complex daycare managerproject manager finance Name: Aminata Mendieta RN Notes: Called [facility] patient for follow-up, see case summary note. Created By: Aminata Mendieta RN Date: March 31, 2021 Method: Phone call Type: Outbound Duration (min): 6 Outcome: Case discussion Contact Type: Complex daycare managerproject manager finance Name: Aminata Mendieta RN Notes: CCM follow-up see summary note. Created By: Aminata Mendieta RN Date: March 24, 2021 Method: Phone call Type: Outbound Duration (min): 1 Outcome: Left message-voicemail Contact Type: Complex daycare managerproject manager finance Name: Aminata Mendieta RN Notes: Attempted to return patient call, no answer, left message. See message cente rnote. Created By: Aminata Mendieta RN Date: March 24, 2021 Method: Phone call Type: Inbound Duration (min): 1 Outcome: Case discussion Contact Type: Patient advocate Contact Name: Geneva Carusoo Notes: Patient daughter left message asking for a call back regarding ATB. Created By: Aminata Mendieta RN Date: March 23, 2021 Method: Phone call Type: Outbound Duration (min): 4 Outcome: Case discussion Contact Type: Complex daycare managerproject manager finance Name: Aminata Mendieta RN Notes: Called CCM patient for follow-up on ED visit from 03/20/21. See summary note. Created By: Aminata Mendieta RN Date: March 19, 2021 Method: Phone call Type: Outbound Duration (min): 11 Outcome: Case discussion Contact Type: Complex daycare managerproject manager finance Name: Aminata Mendieta RN Notes: Called CCM patient for follow-up. See summary note. Created By: Aminata Mendieta RN Date: March 01, 2021 Method: Phone call Type: Outbound Duration (min): 2 Outcome: Case discussion Contact Type: Complex daycare managerproject manager finance Name: Aminata Mendieta RN Notes: Called [facility] regarding inhaler samples, see messsage center note. Created By: Aminata Mendieta RN Date: February 24, 2021 Method: Phone call Type: Inbound Duration (min): 5 Outcome: Case discussion Contact Type: Patient advocate Contact Name: Geneva Ny Notes: See message center note. Created By: Aminata Mendieta RN Date: February 23, 2021 Method: Phone call Type: Outbound Duration (min): 3 Outcome: Case discussion Contact Type: Complex daycare managerproject manager finance Name: Aminata Mendieta RN Notes: See message center note. Created By: Aminata Mendieta RN Date: February 22, 2021 Method: Phone call Type: Inbound Duration (min): 2 Outcome: Case discussion Contact Type: Patient advocate Contact Name: Geneva Ny Notes: Daughter left detailed message see message note. Created By: Aminata Mendieta RN Date: February 22, 2021 Method: Phone call Type: Inbound Duration (min): 20 Outcome: Case discussion Contact Type: Patient advocate Contact Name: Geneva Ny Notes: Patient daughter called see case summary note. Created By: Aminata Mendieta RN Date: December 31, 2020 Method: Phone call Type: Inbound Duration (min): 2 Outcome: Case discussion Contact Type: Patient advocate Contact Name: Geneva Ny Notes: Daughter called asking about upcoming appointment times and dates. See message cente note. Created By: Aminata Mendieta RN Date: December 22, 2020 Method: Phone call Type: Inbound Duration (min): 2 Outcome: Case discussion Contact Type: Patient Contact Name: MATEO [place] Notes: See case summary note Created By: Aminata Mendieta RN Date: December 22, 2020 Method: Phone call Type: Outbound Duration (min): 3 Outcome: Case discussion Contact Type: Complex daycare managerproject manager finance Name: Aminata Mendieta RN Notes: See message center note. Created By: Aminata Mendieta RN Date: December 22, 2020 Method: Phone call Type: Outbound Duration (min): 5 Outcome: Case discussion Contact Type: Complex daycare managerproject manager finance Name: Aminata Mendieta RN Notes: Called patient regarding messages from Dr. Sifuentes, see message center notes x 2. Created By: Aminata Mendieta RN Date: December 21, 2020 Method: Phone call Type: Outbound Duration (min): 9 Outcome: Case discussion Contact Type: Complex daycare managerproject manager finance Name: Aminata Mendieta RN Notes: See case summary note. Created By: Aminata Mendieta RN Date: December 18, 2020 Method: Phone call Type: Outbound Duration (min): 2 Outcome: Case discussion Contact Type: Patient advocate Contact Name: Dtr- Geneva Notes: CN let her know that was not in today, dtr states that she thinks pt has enough to get thorugh till Monday. CN instucted her to call on Monday if she doesn't hear from Aminata or myself. Created By: Linda Mcdonald RN Date: December 18, 2020 Method: Phone call Type: Outbound Duration (min): 1 Outcome: Case discussion Contact Type: Medical facility Contact Name: [facility] Notes: They have stiolto 5 mcg samples only, message sent to PCP; Created By: Linda Mcdonald RN Date: December 04, 2020 Method: Phone call Type: Outbound Duration (min): 4 Outcome: Case discussion Contact Type: Complex daycare managerproject manager finance Name: Aminata Mendieta RN Notes: See message center note. Created By: Aminata Mendieta RN Date: December 03, 2020 Method: Phone call Type: Inbound Duration (min): 17 Outcome: Case discussion Contact Type: Patient Contact Name: MATEO [place] Notes: CCM patient called with concerns, see message center note. Created By: Aminata Mendieta RN Date: November 09, 2020 Method: Phone call Type: Outbound Duration (min): 12 Outcome: Case discussion Contact Type: Complex daycare managerproject manager finance Name: Aminata Mendieta RN Notes: Called CCM patient for update from ED visit yesterday. See case summary note. Created By: Aminata Mendieta RN Date: October 22, 2020 Method: Phone call Type: Inbound Duration (min): 20 Outcome: Case discussion Contact Type: Patient Contact Name: ANANT MATEO G Notes: CCM call for [place], see case summary note. Created By: Aminata Mendieta RN Date: October 22, 2020 Method: Phone call Type: Outbound Duration (min): -- Outcome: No answer Contact Type: Complex daycare managerproject manager finance Name: Aminata Mendieta RN Notes: Attempted to call daughter regarding sample of inhaler, no answer, voicemail full. Created By: Aminata Mendieta RN Date: October 22, 2020 Method: Phone call Type: Outbound Duration (min): -- Outcome: Left message-voicemail Contact Type: Complex daycare managerproject manager finance Name: Aminata Mendieta RN Notes: Attempted o call patint for October CCM follow-up. No answer, left message asking ofr a return call. Created By: Aminata Mendieta RN Date: October 21, 2020 Method: Phone call Type: Inbound Duration (min): 3 Outcome: Case discussion Contact Type: Patient advocate Contact Name: Geneva Ny Notes: Daughter called regarding need for Stioloto Respimt inhaler, see case summary note. Created By: Aminata Mendieta RN Date: September 22, 2020 Method: Phone call Type: Inbound Duration (min): 22 Outcome: Case discussion Contact Type: Patient Contact Name: MATEO [place] Notes: [facility] patient called with questions and concerns. See case summary note. Created By: Aminata Mendieta RN Date: September 08, 2020 Method: Phone call Type: Outbound Duration (min): 3 Outcome: Case discussion Contact Type: Complex daycare managerproject manager finance Name: Aminata Mendieta RN Notes: Called [facility] patient regarding outpatient surgery yesterdy, see case summary note. Created By: Aminata Mendieta RN Date: September 02, 2020 Method: Phone call Type: Outbound Duration (min): 19 Outcome: Case discussion Contact Type: Complex daycare managerproject manager finance Name: Aminata Mendieta RN Notes: [facility] monthly follow-up, see case summary note. Created By: Aminata Mendieta RN Date: September 02, 2020 Method: Phone call Type: Outbound Duration (min): -- Outcome: Left message-voicemail Contact Type: Complex daycare managerproject manager finance Name: Aminata Mendieta RN Notes: Patient left message on [facility] phone asking for a return call, called patient , no answer, left message asking for a return call. Created By: Aminata Mendieta RN Date: August 13, 2020 Method: Phone call Type: Outbound Duration (min): 2 Outcome: Case discussion Contact Type: Complex daycare managerproject manager finance Name: Aminata Mendieta RN Notes: Called [facility] patient regarding medication for ringworm, see message center note. Created By: Aminata Mendieta RN Date: August 11, 2020 Method: Phone call Type: Inbound Duration (min): 3 Outcome: Case discussion Contact Type: Complex daycare managerproject manager finance Name: Lexii Casper MA Notes: See message center note regarding ringworm Created By: Aminata Mendieta RN Date: July 29, 2020 Method: Phone call Type: Outbound Duration (min): 21 Outcome: Case discussion Contact Type: Complex daycare managerproject manager finance Name: Aminata Mendieta RN Notes: [facility] monthly follow-up, patient in ED yesterday. See case summary note. Created By: Aminata Mendieta RN Date: July 10, 2020 Method: Phone call Type: Outbound Duration (min): 26 Outcome: Case discussion Contact Type: Complex daycare managerproject manager finance Name: Aminata Mendieta RN Notes: [facility] monthly call. See case summary note. Created By: Aminata Mendieta RN Date: February 27, 2020 Method: Phone call Type: Outbound Duration (min): 21 Outcome: Case discussion Contact Type: academic affairs coordinator Contact Name: Aminata Mendieta RN Notes: [facility] monthly call, See case summary note. Created By: Aminata Mendieta RN Date: December 31, 2019 Method: Phone call Type: Outbound Duration (min): 2 Outcome: Case discussion Contact Type: Complex daycare managerproject manager finance Name: Aminata Mendieta RN Notes: [facility] patient notified of prescriptions sent in, see message center note. Created By: Aminata Mendieta RN Date: December 30, 2019 Method: Phone call Type: Outbound Duration (min): 22 Outcome: Case discussion Contact Type: Complex daycare managerproject manager finance Name: Aminata Mendieta RN Notes: CCM call, see case summary note. Created By: Aminata Mendieta RN Date: December 09, 2019 Method: Phone call Type: Outbound Duration (min): 7 Outcome: Case discussion Contact Type: Complex daycare managerproject manager finance Name: Aminata Mendieta RN Notes: [facility] monthly call, see case summary note. Created By: Aminata Mendieta RN Date: November 28, 2019 Method: Phone call Type: Outbound Duration (min): 1 Outcome: Case discussion Contact Type: Complex daycare managerproject manager finance Name: Teena Zheng Notes: See message center note. Created By: Aminata Mendieta RN Date: November 28, 2019 Method: Phone call Type: Inbound Duration (min): 3 Outcome: Case discussion Contact Type: Patient Contact Name: MATEO [place] Notes: See message center note. Created By: Aminata Mendieta RN Date: November 13, 2019 Method: Phone call Type: Inbound Duration (min): 11 Outcome: Case discussion Contact Type: Complex daycare managerproject manager finance Name: Aminata Mendieta RN Notes: [facility] patient called with concerns, see case summary note. Created By: Aminata Mendieta RN Date: November 05, 2019 Method: Phone call Type: Outbound Duration (min): 8 Outcome: Case discussion Contact Type: Complex daycare managerproject manager finance Name: Aminata Mendieta RN Notes: CCM call October, see case summary note. Created By: Aminata Mendieta RN Date: October 28, 2019 Method: Phone call Type: Inbound Duration (min): 2 Outcome: Case discussion Contact Type: Complex daycare managerproject manager finance Name: Blanka Swain LPN Notes: Patient returned call regarding increase in medications. see message center note. Created By: Aminata Mendieta RN Date: October 28, 2019 Method: Phone call Type: Outbound Duration (min): 3 Outcome: Case discussion Contact Type: Complex daycare managerproject manager finance Name: Moon Queen CMA Notes: Results given regarding abdominal xray and Dr. Sifuentes recommendations, see message center note. Created By: Aminata Mendieta RN Date: October 21, 2019 Method: Phone call Type: Outbound Duration (min): 8 Outcome: Case discussion Contact Type: Complex daycare managerproject manager finance Name: Aminata Mendieta RN Notes: [facility] October call. See case summary note. Created By: Aminata Mendieta RN Date: September 03, 2019 Method: Phone call Type: Outbound Duration (min): 21 Outcome: Case discussion Contact Type: Complex daycare managerproject manager finance Name: Aminata Mendieta RN Notes: [facility] monthly August call. See case summary call. Created By: Aminata Mendieta RN Date: July 30, 2019 Method: Phone call Type: Outbound Duration (min): 21 Outcome: Case discussion Contact Type: social media managerproject manager finance Name: Aminata Mendieta RN Notes: [facility] July call, see caase summary note. Created By: Aminata Mendieta RN Date: July 09, 2019 Method: Phone call Type: Outbound Duration (min): 17 Outcome: Case discussion Contact Type: academic affairs coordinator Contact Name: Aminata Mendieta RN Notes: [facility] bi-weekly call. see case summary note. Created By: Aminata Mendieta RN Date: July 08, 2019 Method: Phone call Type: Outbound Duration (min): -- Outcome: No answer Contact Type: social media managerproject manager finance Name: Aminata Mendieta RN Notes: Attempted to call patient for update on medicaations, no answer, unable to leave voicemail. Created By: Aminata Mendieta RN Date: June 18, 2019 Method: Phone call Type: Outbound Duration (min): -- Outcome: Case discussion Contact Type: social media managerproject manager finance Name: Aminata Mendieta RN Notes: Attempted to callpatietn for bi-weekly CCM call for June, no answer, left message asking for return call. Created By: Aminata Mendieta RN Date: June 04, 2019 Method: Phone call Type: Outbound Duration (min): 13 Outcome: Case discussion Contact Type: social media managerproject manager finance Name: Aminata Mendieta RN Notes: [facility] May call, see case summary note. Created By: Aminata Mendieta RN Date: June 04, 2019 Method: Phone call Type: Outbound Duration (min): 1 Outcome: Left message-voicemail Contact Type: academic affairs coordinator Contact Name: Aminata Mendieta RN Notes: CCM May call, no answer, left message asking for return call. Created By: Aminata Mendieta RN Date: May 20, 2019 Method: Phone call Type: Outbound Duration (min): 13 Outcome: Case discussion Contact Type: social media managerproject manager finance Name: Aminata Mendieta RN Notes: CCM May call. see case summary note. Created By: Aminata Mendieta RN Date: April 26, 2019 Method: Phone call Type: Inbound Duration (min): 10 Outcome: Case discussion Contact Type: Patient Contact Name: [place] Notes: Patient called CN for CCM follow-up. See Case Summary Note. Created By: Brice Stephenson RN Date: April 16, 2019 Method: In-person Type: -- Duration (min): 22 Outcome: Case discussion Contact Type: Patient Contact Name: [place] Notes: Patient came to primary care office for assistance with medication patient assistance form. See Case Summary note. Created By: Brice Stephenson RN Date: April 16, 2019 Method: Phone call Type: Outbound Duration (min): -- Outcome: Left message-voicemail Contact Type: social media managerproject manager finance Name: Brice Stephenson RN Notes: CN attempted to call patient for CCM follow-up related to assistance with patient drug assistance paperwork completion. Message left with needed information from patient. Asked patient to return call to CN to discuss further. Created By: Brice Stephenson RN Date: April 08, 2019 Method: Phone call Type: Outbound Duration (min): 22 Outcome: Case discussion Contact Type: social media managerproject manager finance Name: Brice Stephenson RN Notes: CN returned call to patient. See Case Summary note. Created By: Brice Stephenson RN Date: April 08, 2019 Method: Phone call Type: Inbound Duration (min): -- Outcome: Case discussion Contact Type: Patient Contact Name: [place] Notes: Patient called and left message for CN requesting return call. Patient notes she has received paperwork in regards to her refill medication and needs assistance to complete paperwork from PCP office. Asking for return phone call. Created By: Brice Stephenson RN Date: April 08, 2019 Method: Phone call Type: Outbound Duration (min): -- Outcome: No answer Contact Type: social media managerproject manager finance Name: Brice Stephenson RN Notes: CN attempted to return patient's call. No answer. Patient's VM currently noted to be full and unable to leave a message at this time. Created By: Brice Stephenson RN Date: March 11, 2019 Method: Phone call Type: Outbound Duration (min): 5 Outcome: Case discussion Contact Type: social media managerproject manager finance Name: Brice Stephenson RN Notes: CN returned call to patient for CCM follow-up call. See Case Summary note. Created By: Brice Stephenson RN Date: March 10, 2019 Method: Phone call Type: Inbound Duration (min): -- Outcome: Case discussion Contact Type: Patient Contact Name: [place] Notes: Patient called and left message on CN message system over the weekend. Reports she feels strange but states it is not an emergency. Requesting a call back. Created By: Brice Stephenson RN Date: February 27, 2019 Method: In-person Type: -- Duration (min): 4 Outcome: Case discussion Contact Type: social media managerproject manager finance Name: Brice Stephenson RN Notes: CN returned call to patient after conferring with PCP. Created By: Brice Stephenson RN Date: February 27, 2019 Method: Phone call Type: Inbound Duration (min): 7 Outcome: Case discussion Contact Type: Patient Contact Name: [place] Notes: Patient called CN about Eye appt and BP concerns, CCM follow-up. See Case Summary note. Created By: Brice Stephenson RN Date: February 20, 2019 Method: Phone call Type: Outbound Duration (min): -- Outcome: Left message-voicemail Contact Type: social media managerproject manager finance Name: Brice Stephenson RN Notes: CN attempted to call patient for CCM follow-up call. No answer. Left message asking for return phone call with patient update. Created By: Brice Stephenson RN Date: February 20, 2019 Method: Phone call Type: Inbound Duration (min): 22 Outcome: Case discussion Contact Type: Patient Contact Name: [place] Notes: Patient returned call to CN for CCM follow-up call. See Case Summary note. Created By: Brice Stephenson RN Date: February 08, 2019 Method: Phone call Type: Outbound Duration (min): -- Outcome: Left message-voicemail Contact Type: social media managerproject manager finance Name: Brice Stephenson RN Notes: CN attempted to call patient for CCM follow-up. No answer. Left message asking for return call. Created By: Brice Stephenson RN Date: January 03, 2019 Method: Phone call Type: Outbound Duration (min): 67 Outcome: Case discussion Contact Type: social media managerproject manager finance Name: Brice Stephenson RN Notes: CN met with patient for CCM initial intake assessment. See I-view and Case Summary note. Created By: Brice Stephenson RN AMBULATORY VISIT SUMMARY Observed: 07/25 3:48 PM Status: F Source: [facility] Ambulatory Visit Summary [place] :1945 Visit Date:07/25/2024 Ambulatory Visit Instructions Your Diagnosis Spinal stenosis of lumbar region Resting tremor Chronic low back pain Adult BMI 32.0-32.9 kg/sq m Other chronic pain Spasm of lumbar paraspinous muscle These Are Your Goals Reduce exacerbations of [...] shaker. - Progressing Keep appointment with Dr. Sifuentes on 10/13/20 at 0920 - Done Keep [...] Gallardo DO This Is Your Medications List acetaminophen-oxycodone (acetaminophen-oxycodone 325 mg-5 mg Tab) cyclobenzaprine (cyclobenzaprine 5 mg Tab) Contact prescribing physician if questions or concerns Misc Prescription (Handicap Placard) Misc Prescription (Misc DME Prescription) Misc Prescription (nebulizer supplies) acetaminophen (Tylenol) amlodipine (amLODIPine 5 mg Tab) bisacodyl (Dulcolax Tab-EC) hydrochlorothiazide-triamterene (hydrochlorothiazide-triamterene 25 mg-37.5 mg Tab) ibuprofen omeprazole (omeprazole 20 mg Cap-DR) pregabalin (pregabalin 225 mg oral capsule) Procedures Performed Epidural injection of lumbar spine using fluoroscopic guidance (07/02/2024), Injection of nerve root of lumbar spine using fluoroscopic guidance (06/03/2024), Injection (01/15/2024), Injection of nerve root of lumbar spine using fluoroscopic guidance (12/21/2023), Injection of nerve root of sacral spine [...] Follow-Up Appointments Monday 10:15 AM EDT With: Marilu Cornell PA-C Where: [facility] Monday 11:00 AM EST With: Where: [facility] [address] [place] [address]- You Need to Schedule the Following Appointments Follow Up with Paulina AGUAYO, GIOVANNY Borges, PED When: Within 1 month Comments: OMT PRN - 40 min slot I have increased cyclobenzaprine to twice a day Continue percocet three times a day Continue lyrica twice a day prescribed by pain management I have referred you to neurology to review your resting tremor I have referred you to pain management at [facility] for a second opinion ----- To go instructions (for follow up): On the day of manipulation, I strongly encourage you to to drink more water to help flush your system after today's treatment Work on using your core muscles more when standing and sitting, and especially when leaning away from your centerline or when lifting things This may take some concentration and work initially but it will eventually become more natural to you Work on shoulder retraction exercises For patients who can tolerate anti-inflammatories and/or tylenol, those medications can help provide some comfort while you work on optimizing function Getting adequate rest is important for managing musculoskeletal pain F/u 1 month or PRN Where: [address] [place] [address] [phone] Someone Will Contact You Regarding These Appointments [facility] External Ambulatory Referral, Neurology, JUSTEN, 07/25/24 17:45:00 EDT, Resting tremor [facility] External Ambulatory Referral, Patient choice/referral by family/friend, Pain Management, [facility], 07/25/24 17:45:00 EDT, Spinal stenosis of lumbar region Spasm of lumbar paraspinous muscle Medications What How Much When Why Instructions New acetaminophen-oxycodone (acetaminophen-oxycodone 325 mg-5 mg Tab) 1 Tablets By Mouth 3 times a day Lumbar radiculopathy, right Polyneuropathy 30 day supply - replacing BID rx M54.2 Pickup at [facility]/pharmacy #[id number] Changed cyclobenzaprine (cyclobenzaprine 5 mg Tab) 1 Tablets By Mouth 2 times a day Spasm of lumbar paraspinous muscle Pickup at [facility]/pharmacy #[id number] Unchanged acetaminophen (Tylenol) 500 Milligram By Mouth Every 6 hours Contact prescribing physician if questions or concerns Unchanged amlodipine (amLODIPine 5 mg Tab) See instructions TAKE 1 TABLET BY MOUTH EVERY DAY Contact prescribing physician if questions or concerns Unchanged bisacodyl (Dulcolax Tab-EC) 2-3 tabs By Mouth Every day adjusts for constipation concerns Contact prescribing physician if questions or concerns Unchanged hydrochlorothiazide-triamterene (hydrochlorothiazide-triamterene 25 mg-37.5 mg Tab) See instructions TAKE 1 TABLET BY MOUTH EVERY DAY Contact prescribing physician if questions or concerns Unchanged ibuprofen 800 Milligram By Mouth Contact prescribing physician if questions or concerns Unchanged Misc Prescription (Handicap Placard) See instructions Expires in 5 years Contact prescribing physician if questions or concerns Unchanged Misc Prescription (Misc DME Prescription) See instructions Wheelchair Contact prescribing physician if questions or concerns Unchanged Misc Prescription (nebulizer supplies) See instructions nebulizer supplies dx J44.9 Contact prescribing physician if questions or concerns Unchanged omeprazole (omeprazole 20 mg Cap-DR) See instructions TAKE 1 CAPSULE BY MOUTH EVERY DAY Contact prescribing physician if questions or concerns Unchanged pregabalin (pregabalin 225 mg oral capsule) 1 Capsules By Mouth 2 times a day Chronic lumbar radiculopathy Neurogenic claudication due to lumbar spinal stenosis Contact prescribing physician if questions or concerns Pharmacy Information [id number]: [address], [place] [phone] Allergies Chocolate (Anaphylaxis) Adhesive Bandage (Itching, Rash) aspirin (Nausea) iodinated radiocontrast dyes (hives, Unknown) penicillins (Itching, Rash) sulfamethoxazole (Swelling) Problems Ongoing - Any problem that you are currently receiving treatment for. 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 Incontinence without sensory awareness Insomnia Irritable bowel syndrome with predominant constipation Lumbar radiculopathy, right Major depressive disorder, recurrent, mild Mild cognitive impairment Mixed incontinence OAB (overactive bladder) Obesity due to excess calories Other urethral stricture, female Pain of right sacroiliac joint Patient has healthcare proxy and living will Peripheral neuropathy Resting tremor RLS (restless legs syndrome) S/P knee replacement Severe obstructive sleep apnea Shoulder pain Somatic dysfunction of abdominal region Somatic dysfunction of cervical region Somatic dysfunction of lower extremities Somatic dysfunction of lumbar region Somatic dysfunction of rib cage region Somatic dysfunction of sacral spine Somatic dysfunction of thoracic region Spasm of lumbar paraspinous muscle Spinal stenosis of lumbar region Stage 3a chronic kidney disease (CKD) Stooped posture Thoracic aorta atherosclerosis Tremor Wears hearing aid in both ears Historical - Any problem that you are no longer receiving treatment for. Abdominal pain, generalized Abnormal urinalysis Body mass index (BMI) of 31.0-31.9 in adult Bronchitis with bronchospasm Cervical radiculopathy Chest pain Dizziness WINTERS (dyspnea on exertion) Exposure to second hand smoke Frequent urination Hernia of abdominal wall History of UTI Leg edema Pain in back 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 Rib pain on right side Right hip pain Screening mammogram, encounter for Urinary urgency Patient Survey You may receive a survey via text or e-mail asking about your office visit. Please share your experience with us by completing your survey. We appreciate your feedback and thank you for choosing us for your care. SCANNED GI TESTING Observed: 07/25/2024 3:48 PM Status: F Source: [facility] Scanned GI Testing Chief Complaint Acute fall HPI Staff Patient here today for acute Visit, Patient fell over dog hit her head a week ago , She has had some spasms in leg and hand She has not had very good experiences with pain management, would like referral to [facility] pain management. Patient states she has been sleeping a lot also. History of Present Illness 79 Years old Female here for Acute fall hit her head a week ago/ having weakness in legs (pt triaged) - [facility] HPI staff / Chief Complaint confirmed with the patient Social: The patient is a ; her passed in 1990 The patient is retired from [employer] The patient has 6 children; 5 living 18 grandchildren 1 great grand baby List of providers Pain management - Dr. Ez Fletcher Urologist - _ To do list: _ HPI staff / Chief Complaint confirmed with the patient Interval history: _ had a fall two weeks ago, hit her right eye didn't seek medical attention last monday, her left knee gave out while washing dishes she fell to the ground and had to get help to get up she is also concerned about a resting tremor that's increasing in severity she met with pain management recently and they are recommending another injection she expresses some concern about another injection pain, overall, has increased (anything tagged from the patients medical record will be at the bottom of this section) LABS Cr/eGFR: eGFR: 88 mL/min/1.73 m2 (04/17/24 12:06:00) Creatinine: 0.7 mg/dL (04/17/24 12:06:00) A1c: Hgb A1C %: 5.5 % (03/31/23 16:40:00) TSH: TSH: 2.13 mcIU/mL (03/31/23 16:40:00) From last note: Review of Systems PHQ Score Initial Depression Screen Score: 2 SCORE Physical Exam Vitals & Measurements HR: 85(Peripheral) BP: 110/60 SpO2: 92% HT: 63 in HT: 160 cm WT: 184.747 lb WT: 83.8 kg BMI: 32.73 PHYSICAL EXAM Constitutional: Vital signs reviewed; [place] is well nourished, no acute distress - appears tired today Head: Atraumatic, normocephalic Eye: EOMI, normal conjunctiva ENT: Moist oral mucosa, external inspection of ears and nose is unremarkable Neck: Trachea is midline, no tenderness Lungs: Clear to auscultation, non-labored respiration - expansion is symmetric Heart: Normal rate and rhythm, normal peripheral perfusion Lymph: Deferred Abd: Deferred : Deferred MSK: slow shuffling gait, walker for ambulation Skin: Warm, dry Neurologic: Awake, alert and oriented, speech is normal, no focal deficits, CN II-XII grossly intact Psychiatric: Cooperative, appropriate mood and affect, judgement is appropriate - a little frustrated about her pain Assessment/Plan 1. Spinal stenosis of lumbar region (M48.061: Spinal stenosis, lumbar region without neurogenic claudication) Impression Acute on chronic Sub-optimal control of symptoms, though, today is a better day compared to recent weeks I had a long discussion with the patient regarding the etiology of this pain This appears to be a combination of weak abdominals, poor posture, sub-optimal mechanics causing non-specific low back pain MRI revealed L4 spinal stenosis -- so far, benefit from interventional pain managment has been somewhat beneficial I do wonder if she may benefit from meeting with neurosurgery The patient does not have symptoms of cauda equina syndrome: no - urinary retention no - urinary or fecal incontinence no - saddle anesthesia The patient does not have significant neurologic deficits no - progressive motor weakness no - motor weakness not localized to a single unilateral nerve root I have considered the following red flags: yes - older age or below age 20 no - prolonged use of corticosteroids (increased risk for compression fractures) no - recent severe trauma no - presence of contusion or abrasion adjacent to their pain no - unrelenting night-time pain (which could indicate infection or malignancy) no - unexplained weight loss (which could indicate infection or malignancy) Plan: Refills provided - pain medication TID, cyclobenzarine BID and lyrica BID (rx'd by pain management) I certify that I have reviewed the OARRS report and all PDMP information in this chart on this visit date I reassured the patient that it can get better but it will require effort from the patient Medications can support improvement of symptoms I have explained that manipulation may continue to help with improving symptoms We have discussed the use of physical therapy and have deferred this for now Patient to follow-up for manipulation in 4-5 weeks or PRN Lumbosacral radiculopathy is a condition in which a disease process impairs the function of one or more lumbosacral nerve roots and often leads to pain, numbness, and weakness in the back, groin, or leg. The most common causes of lumbosacral radiculopathy are compressive intervertebral disc herniation and degenerative spondylosis. UpToDate - accessed 02/28/23 Ordered: [facility] External Ambulatory Referral 2. Resting tremor (G25.2: Other specified forms of tremor) chronic progressing due to her fam hx of parkinson's requesting referral to neurology referral placed Ordered: [facility] External Ambulatory Referral 3. Chronic low back pain (M54.50: Low back pain, unspecified) see #1 Adult BMI 32.0-32.9 kg/sq m (Z68.32: Body mass index [BMI] 32.0-32.9, adult) Other chronic pain (G89.29: Other chronic pain) Spasm of lumbar paraspinous muscle (M62.830: Muscle spasm of back) refill cyclobenzaprine Ordered: cyclobenzaprine, 5 mg = 1 tab(s), Oral, BID, # 60 tab(s), Refills(s) 12, [facility]acy: [id number], 160, cm, 07/25/24 17:03:00 EDT, Height/Length Dosing, 83.8, kg, 07/25/24 17:03:00 EDT, Weight Dosing [facility] External Ambulatory Referral Orders: acetaminophen-oxycodone, 1 tab(s), Oral, TID, 90 tab(s), Refill(s) 0, 30 day supply - replacing BID rx M54.2, [id number], 160, cm, 06/24/24 13:14:00 EDT, Height/Length Dosing, 85, kg, 06/24/24 13:14:00 EDT, Weight Dosing acetaminophen-oxycodone, 1 tab(s), Oral, TID, 90 tab(s), Refill(s) 0, 30 day supply - replacing BID rx M54.2, [id number], 160, cm, 07/25/24 17:03:00 EDT, Height/Length Dosing, 83.8, kg, 07/25/24 17:03:00 EDT, Weight Dosing Total time spent TODAY preparing the chart for today's appt which included reviewing the patient's medical record, updating the patient's history in the EMR, time spent face to face with the patient including education about their conditions and counseling on how to manage, care coordination and time spent documenting, reviewing, and ordering tests was 30 mins. Patient was counseled on the above diagnosis and treatment, all questions were answered and patient agrees to adhere to the plan above. Risk and benefits of appropriate procedures and medications were reviewed as well with patient, who voiced understanding and agreement. Patient, when appropriate, was counseled on smoking cessation and/or continuing to abstain from nicotine/tobacco products as appropriate based on history; as smoking/nicotine can contribute to increased pain overall and decreased wound healing. Patient counseled on maintaining a healthy BMI as part of the total treatment of their pain and to reduce stress/strain on joints. While I advocate for body image positivity, we know that all cause morbidity and mortality increases as the BMI rises above 25 and worse above a BMI of 30. Patient invited to return here for an additional appt when needed or they may call to speak with the nurse with any questions or concerns that arise in the mean time. 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 Incontinence without sensory awareness Insomnia Irritable bowel syndrome with predominant constipation Lumbar radiculopathy, right Major depressive disorder, recurrent, mild Mild cognitive impairment Mixed incontinence OAB (overactive bladder) Obesity due to excess calories Other urethral stricture, female Pain of right sacroiliac joint Patient has healthcare proxy and living will Peripheral neuropathy Resting tremor RLS (restless legs syndrome) S/P knee replacement Severe obstructive sleep apnea Shoulder pain Somatic dysfunction of abdominal region Somatic dysfunction of cervical region Somatic dysfunction of lower extremities Somatic dysfunction of lumbar region Somatic dysfunction of rib cage region Somatic dysfunction of sacral spine Somatic dysfunction of thoracic region Spasm of lumbar paraspinous muscle Spinal stenosis of lumbar region Stage 3a chronic kidney disease (CKD) Stooped posture Thoracic aorta atherosclerosis Tremor Wears hearing aid in both ears Historical Abdominal pain, generalized Abnormal urinalysis Body mass index (BMI) of 31.0-31.9 in adult Bronchitis with bronchospasm Cervical radiculopathy Chest pain Dizziness WINTERS (dyspnea on exertion) Exposure to second hand smoke Frequent urination Hernia of abdominal wall History of UTI Leg edema Pain in back 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 Rib pain on right side Right hip pain Screening mammogram, encounter for Urinary urgency Procedure/Surgical History Epidural injection of lumbar spine using fluoroscopic guidance (07/02/2024), Injection of nerve root of lumbar spine using fluoroscopic guidance (06/03/2024), Injection (01/15/2024), Injection of nerve root of lumbar spine using fluoroscopic guidance (12/21/2023), Injection of nerve root of sacral spine [...] Corns and callus, mole removal, Tubal ligation. Medications acetaminophen-oxycodone 325 mg-5 mg Tab, 1 tab(s), Oral, TID amLODIPine 5 mg Tab, See Instructions cyclobenzaprine 5 mg Tab, 5 mg= 1 tab(s), Oral, BID, 12 refills Dulcolax Tab-EC, 2-3 tabs, Oral, Daily Handicap Placard, See Instructions hydrochlorothiazide-triamterene 25 mg-37.5 mg Tab, See Instructions ibuprofen, 800 mg, Oral Misc DME Prescription, See Instructions nebulizer supplies, See Instructions, 11 refills omeprazole 20 mg Cap-DR, See Instructions pregabalin 225 mg oral capsule, 225 mg= 1 cap(s), Oral, BID, 1 refills Tylenol, 500 mg, Oral, q6hr, Not taking Allergies Chocolate (Anaphylaxis) Adhesive Bandage (Itching, Rash) [...] Previous treatment: None. Household tobacco concerns: No., 01/09/2024 Family History Alcoholism: Father. Metastatic cancer: Mother. Parkinson disease: Father. Parkinson's disease: Father. Primary malignant neoplasm of colon: Mother. Immunizations Vaccine Date Status Comments SARS-CoV-2 (COVID-19) mRNA BNT-162b2 vax 01/18/2024 Recorded [facility] diphtheria/pertussis, acel/tetanus adult 01/18/2024 Recorded influenza virus vaccine, inactivated 11/24/2023 Given influenza virus vaccine, inactivated - Not Given Vaccine Storage zoster vaccine, inactivated 05/22/2023 Recorded zoster vaccine live 02/06/2023 Recorded Zoster Recombinant per [facility] zoster vaccine, inactivated 02/06/2023 Recorded influenza virus vaccine, inactivated 01/09/2023 Given Early/Late Reason: System Down SARS-CoV-2 (COVID-19) [id number] 01/18/2022 Given influenza virus vaccine, inactivated 01/18/2022 Given influenza virus vaccine, inactivated - Not Given Postpone due to refusal SARS-CoV-2 (COVID-19) mRNA BNT-162b2 vax 01/13/2021 Given influenza virus vaccine, inactivated 12/09/2020 Given SARS-CoV-2 (COVID-19) mRNA-1273 vaccine 05/18/2020 Recorded SARS-CoV-2 (COVID-19) mRNA-1273 vaccine 05/18/2020 Recorded Patrice & Patrice vaccine administered with [facility] dept ImpactSIIS scanned with date influenza virus vaccine, inactivated 12/27/2019 Given influenza virus vaccine, inactivated 12/18/2018 Given influenza virus vaccine, inactivated 01/09/2018 Recorded pneumococcal 13-valent vaccine 03/29/2017 Recorded influenza virus vaccine, inactivated 12/08/2016 Recorded influenza virus vaccine, inactivated 12/17/2015 Recorded pneumococcal 23-valent vaccine 01/21/2014 Recorded pneumococcal 23-valent vaccine 12/16/2013 Recorded pneumococcal 23-valent vaccine 01/04/2008 Recorded CONSULTATION NOTE Observed: 07/19/2024 11:21 AM Status: F Source: [facility] Consultation Note Patient: M[place]O [place] Age: 79 years Sex: Female : 1945 Associated Diagnoses: None Author: Marilu Cornell PA-C Subjective Chief complaint 07/19/2024 10:38 EDT Right buttock pain . Patient is a 79-year-old female following up today after undergoing an L5-S1 epidural steroid injection. This was done on 07/02/2024 and when I walked in the room and asked her how things went she states it did not . She states that she is just pissed at the world. She still has lower back pain with right leg pain. She rates it a 4/10 but it can get up to a 10/10. She is noting a lot of pain, numbness, tingling and weakness. She has fallen a few times. She states that her leg feels like it is going to give out but she absolutely refuses to have surgery. She absolutely refuses to do anything that would require any sort of anesthesia as she states that she had to be propped up during a previous situation with anesthesia and she stopped breathing. She does not want to do anything that would require her to do this. She states that she wants to get pain relief but at this time, she is not getting relief with the medication she is using. She is using gabapentin 900 mg 3 times a day and she is using Percocet given to her by her PCP. She also intermittently uses ibuprofen and Tylenol. Health Status Allergies: Allergic Reactions (Selected) Severe [...] EA, 0, Expires in 5 years, Supply [facility] Prescription: [facility] Prescription, See Instructions, 1 EA, 0, Wheelchair, Supply acetaminophen-oxycodone 325 mg-5 mg Tab: 1 tab(s), Oral, TID, 90 tab(s), Refill(s) 0, 30 day supply - replacing BID rx M54.2, [id number], 160, cm, 06/24/24 13:14:00 EDT, Height/Length Dosing, 85, kg, 06/24/24 13:14:00 EDT, Weight Dosing amLODIPine 5 mg Tab: See Instructions, TAKE 1 TABLET BY MOUTH EVERY DAY, # 90 tab(s), Refills(s) 4, Pharmacy: [id number], 168, cm, 04/09/24 9:05:00 EST, Height/Length Dosing, 83.2, kg, 04/09/24 9:05:00 EST, Weight Dosing cyclobenzaprine 5 mg Tab: 5 mg = 1 tab(s), Oral, Bedtime, # 30 tab(s), Refills(s) 12, [id number], 168, cm, 08/22/23 8:56:00 EDT, Height/Length Dosing, 85.5, kg, 08/22/23 8:55:00 EDT, Weight Dosing gabapentin 300 mg Cap: 900 mg = 3 cap(s), Oral, TID, X 30 day(s), # 270 cap(s), Refills(s) 1, [id number], 160, cm, 06/24/24 13:14:00 EDT, Height/Length Dosing, 85, kg, 06/24/24 13:14:00 EDT, Weight Dosing hydrochlorothiazide-triamterene 25 mg-37.5 mg Tab: See Instructions, 90 tab(s), Refill(s) 4, TAKE 1 TABLET BY MOUTH EVERY DAY, [id number], 168, cm, 04/09/24 9:05:00 EST, Height/Length Dosing, 83.2, kg, 04/09/24 9:05:00 EST, Weight Dosing nebulizer supplies: nebulizer supplies, See Instructions, 1 EA, 11, nebulizer supplies dx J44.9, [facility], Supply, 158, cm, 12/27/19 11:56:00 EDT, Height/Length Dosing, 88.6, kg, 12/27/19 11:56:00 EDT, Weight Dosing omeprazole 20 mg Cap-DR: See Instructions, TAKE 1 CAPSULE BY MOUTH EVERY DAY, # 90 cap(s), Refills(s) 4, Pharmacy: [id number], 165, cm, 06/03/24 9:48:00 EDT, Height/Length Dosing, 83, kg, 05/17/24 9:33:00 EST, Weight Dosing pregabalin 225 mg oral capsule: 225 mg = 1 cap(s), Oral, BID, # 60 cap(s), Refills(s) 1, Pharmacy: [id number], 160, cm, 07/19/24 11:00:00 EDT, Height/Length Dosing, 83.5, kg, 07/19/24 11:00:00 EDT, Weight Dosing Documented Medications Documented Dulcolax Tab-EC: 2-3 tabs, Oral, Daily, adjusts for constipation concerns, Refills(s) 0 Tylenol: 500 mg, Oral, q6hr, Refills(s) 0 ibuprofen: 800 mg, Oral, Refills(s) 0 Problem list: All Problems Tobacco use, continuous / SNOMED CT 3043886913 / Confirmed Diaphragm paralysis / SNOMED CT 715854957 / Confirmed Spigelian hernia / SNOMED CT 277792265 / Confirmed Tremor / SNOMED CT 16777265 / Confirmed DDD (degenerative disc disease), cervical / SNOMED CT 206498696 / Confirmed Bilateral hearing loss / SNOMED CT 747258905 / Confirmed GERD (gastroesophageal reflux disease) / SNOMED CT 461505533 / Confirmed HTN (hypertension) / SNOMED CT 1851941248 / Confirmed Emphysema/COPD / SNOMED CT 4966009 / Confirmed History of stroke / SNOMED CT 9845091162 / Confirmed Former smoker / SNOMED CT 14651848 / Confirmed Other urethral stricture, female / SNOMED CT 193055872 / Confirmed Mixed incontinence / SNOMED CT 09256685 / Confirmed Wears hearing aid in both ears / SNOMED CT 243248449 / Confirmed Generalized osteoarthritis / SNOMED CT 953879306 / Confirmed 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 / SNOMED CT 4578165846 / Confirmed Irritable bowel syndrome with predominant constipation / SNOMED CT 1591260201 / Confirmed Lumbar radiculopathy, right / SNOMED CT 017563906 / Confirmed Patient has healthcare proxy and living will / SNOMED CT 3928004185 / Confirmed OAB (overactive bladder) / SNOMED CT 2157158324 / Confirmed Incontinence without sensory awareness / SNOMED CT 9666376439 / Confirmed Edema / SNOMED CT 609920007 / Confirmed Peripheral neuropathy / SNOMED CT 507550542 / Confirmed Dependent for transportation / SNOMED CT 159689549 / Confirmed Thoracic aorta atherosclerosis / SNOMED CT 884731188 / Confirmed Enrolled in chronic care management / SNOMED CT 253588430 / Confirmed Obesity due to excess calories / SNOMED CT 4299212771 / Confirmed Elevated diaphragm / SNOMED CT 370630922 / Confirmed Pain of right sacroiliac joint / SNOMED CT 576736374 / Confirmed RLS (restless legs syndrome) / SNOMED CT 00125648 / Confirmed Somatic dysfunction of cervical region / SNOMED CT 5659257206 / Confirmed Somatic dysfunction of thoracic region / SNOMED CT 8988766541 / Confirmed Somatic dysfunction of lumbar region / SNOMED CT 7614339170 / Confirmed Somatic dysfunction of sacral spine / SNOMED CT 8799476539 / Confirmed Somatic dysfunction of lower extremities / SNOMED CT 3018101059 / Confirmed Somatic dysfunction of rib cage region / SNOMED CT 7258165707 / Confirmed Somatic dysfunction of abdominal region / SNOMED CT 6286378550 / Confirmed Severe obstructive sleep apnea / SNOMED CT 634673078 / Confirmed Insomnia / SNOMED CT 325385442 / Confirmed S/P knee replacement / SNOMED CT 737384625 / Confirmed Mild cognitive impairment / SNOMED CT 1998961859 / Confirmed noted in 04/24/2023 Neurology Consult Note page 1. added per OP CDI policy. Stage 3a chronic kidney disease (CKD) / SNOMED CT 6998371986 / Confirmed added per 06/26/2023 query response. Major depressive disorder, recurrent, mild / SNOMED CT 304233148 / Confirmed added per 06/26/2023 query response. Chronic respiratory failure with hypoxia / SNOMED CT 5843686379 / Confirmed added per 06/26/2023 query response. 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 Chronic constipation / SNOMED CT 441343431 / Confirmed Chronic low back pain / SNOMED CT 674103944 / Confirmed Spasm of lumbar paraspinous muscle / SNOMED CT 6019642481 / Confirmed Abdominal weakness / SNOMED CT 087128165 / Confirmed Stooped posture / SNOMED CT 79386064 / Confirmed Shoulder pain / SNOMED CT 30240548 / Confirmed Frozen shoulder / SNOMED CT 6131109463 / Confirmed Resolved: Stroke / SNOMED CT 231729435 left arm is weaker then right Resolved: Cervical radiculopathy / SNOMED CT 534833650 Resolved: Leg edema / SNOMED CT 586126087 Resolved: Urinary urgency / SNOMED CT 545888586 Resolved: History of UTI / SNOMED CT 0170009550 Resolved: Frequent urination / SNOMED CT 072364864 Resolved: WINTERS (dyspnea on exertion) / SNOMED CT 615438145 Resolved: Rib pain on right side / SNOMED CT 726783247 Resolved: Dizziness / SNOMED CT 6384716579 Resolved: Exposure to second hand smoke / SNOMED CT 81806596 Resolved: Bronchitis with bronchospasm / SNOMED CT 26145723 Resolved: Pain in back / SNOMED CT 136650567 Resolved: Hernia of abdominal wall / SNOMED CT 429519575 Resolved: Abdominal pain, generalized / SNOMED CT 204420908 Resolved: 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 / SNOMED CT 3333297199 Resolved: Right hip pain / SNOMED CT 15578423 Resolved: Body mass index (BMI) of 31.0-31.9 in adult / SNOMED CT 236247264 Resolved: Screening mammogram, encounter for / SNOMED CT 736951842 Resolved: Abnormal urinalysis / SNOMED CT 7519636310 Resolved: Chest pain / SNOMED CT 26808252 Canceled: GERD (gastroesophageal reflux disease) / SNOMED CT 4101545888 Canceled: HTN (hypertension) / SNOMED CT 3527941477 Canceled: Restless leg syndrome / SNOMED CT 6450891089 Canceled: At risk for falls / SNOMED CT 079065156 Problem added when Risk for Falls Careplan was initiated. Resolved due to patient discharge. Canceled: At risk for impaired skin integrity / SNOMED CT 960795190 Problem added based on documenting Adilson score less than or equal to 18, rash, or malnutrition. Resolved due to patient discharge. Canceled: Constipation / SNOMED CT 709629526 Canceled: Atypical chest pain / SNOMED CT 133137801 Canceled: Depression / SNOMED CT 14487429 Canceled: Restless leg syndrome / IMO 25133 Canceled: COPD exacerbation / SNOMED CT 809232133 Canceled: Urge incontinence / SNOMED CT 531675035 Canceled: Microscopic hematuria / SNOMED CT 542547456 Canceled: Other post-traumatic urethral stricture, female / SNOMED CT 744901216 Canceled: Flaccid bladder / SNOMED CT 4397306198 Canceled: Nocturia / SNOMED CT 566629046 Canceled: Chronic kidney disease / SNOMED CT 1344679528 Canceled: Other problems related to lifestyle / SNOMED CT 688959408 Canceled: Flank pain / SNOMED CT 046257282 Canceled: Overactive bladder due to prolapse of female genital organ / SNOMED CT 5535082650 Canceled: BMI 30.0-30.9,adult / SNOMED CT 749595235 Canceled: Stress incontinence / SNOMED CT 822307672 Canceled: Overactive bladder / SNOMED CT 9043794501 Canceled: Class 1 obesity due to excess calories in adult / SNOMED CT 8959003207 Canceled: Body mass index 32.0-32.9, adult / SNOMED CT 002334159 Canceled: Frequency of urination / SNOMED CT 666495796 Canceled: Urgency of urination / SNOMED CT 716124110 Canceled: Hypertension with heart disease / SNOMED CT 1726836564 Canceled: Hypertensive heart disease / SNOMED CT 440636808 Canceled: Community acquired pneumonia / SNOMED CT 5184144866 Canceled: Abdominal pain, RLQ / SNOMED CT 581155073 Canceled: Spigelian hernia / SNOMED CT 750515528 Canceled: Severe obesity (BMI 35.0-35.9 with comorbidity) / SNOMED CT 8989083011 Canceled: BMI 32.0-32.9,adult / SNOMED CT 407505634 Canceled: BMI 35.0-35.9,adult / SNOMED CT 215402308 Canceled: Dietary counseling / SNOMED CT 823110918 Canceled: Urgency of urination / SNOMED CT 304571877 Canceled: ESBL E. coli carrier / SNOMED CT 6792816460 ESBL E coli in urine 11/08/2020 Possible ESBL + urine 03/20/2021. Escherichia coli Canceled: Leg pain, left / SNOMED CT 7447604970 Canceled: Pain in thoracic spine / SNOMED CT 714595918 Canceled: Viral URI / SNOMED CT 549684869 Canceled: Body mass index 34.0-34.9, adult / SNOMED CT 730320991 Canceled: COPD with acute exacerbation / SNOMED CT 751460655 Canceled: BMI 31.0-31.9,adult / SNOMED CT 578711513 Canceled: COPD with chronic bronchitis / SNOMED CT 849861857 Canceled: Oral thrush / SNOMED CT 132843947 Canceled: Somatic dysfunction of occipitocervical region / SNOMED CT 2624211765 Canceled: Mild recurrent major depression / SNOMED CT 180784470 Canceled: Adjustment reaction / SNOMED CT 16543642 Canceled: Acute low back pain with sciatica / SNOMED CT 165256858 Canceled: Memory loss / SNOMED CT 13971296 noted in 04/24/2023 Neurology Consult Note page 1. added per OP CDI policy. Canceled: Anxiety with depression / SNOMED CT 426539042 noted in 04/24/2023 Neurology Consult Note page 1. added per OP CDI policy. Canceled: UTI (urinary tract infection) / SNOMED CT 298801347 Objective Vital Signs 07/19/2024 10:38 EDT Peripheral Pulse Rate 83 bpm Respiratory Rate 16 br/min Systolic Blood Pressure 117 mmHg Diastolic Blood Pressure 44 mmHg LOW Mean Arterial Pressure, Cuff 68 mmHg General: Alert and oriented, No acute distress. Eye: Normal conjunctiva. HENT: Normocephalic, Normal hearing. Cardiovascular: No edema. Musculoskeletal Normal range of motion. Normal strength. Ambulating with a walker 5/5 lower extremity strength other than right hip flexion, ADF and EHL 4/5 with positive right straight leg raise Integumentary: Warm, Dry, [place]. Integumentary: Warm, Dry, [place]. Neurologic: Alert, Oriented. Psychiatric: Cooperative, Appropriate mood & affect. 14 point review of systems was negative unless otherwise noted. Results Review Lumbar MRI report reviewed. Severe stenosis. Impression and Plan Patient is a 79-year-old female with a past medical history significant for lumbar stenosis and lumbar neuritis. She also has chronic pain. At this time, she has lower back pain with right radiating leg pain. This affects her ambulatory status. This affects her quality life. This affects her activities and affects her ability to do things she wants to do. She is very frustrated and she states she does not understand why these injections have not worked. She felt that there was may be a technical issue. We reviewed the imaging from the injections. At this time, they have all been technically done appropriately. Unfortunate, with her severe stenosis they just have not given her relief. This was discussed at length. At this time, she is very frustrated. We discussed medication options. She is using Percocet given to her by her PCP. I would recommend she continue to use this. She is also going to continue to intermittently use ibuprofen and Tylenol. Doses of these were discussed. We are going to have her discontinue the gabapentin and trial Lyrica. She is having some muscle spasms throughout her body and this was discussed at length. She is going to switch the medication and follow-up in 3 to 4 weeks. Call the clinic in the interim should she require anything from our services. LILI score: 58%. As part of providing excellent, safe, comprehensive care, the following was completed at our patient's visit: Reviewed patient's medication reconciliation. Reviewed screening for depression, screening for tobacco use, and patient's Oswestry disability index results. For concerning screenings had a discussion with the patient, provided patient education, and recommended follow-up with primary care provider when appropriate. Patient noted with risk of falling received education on strength, gait, and balance training to prevent future risk of falling. 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 Referral Reason: Disease management Case Type: Chronic Care Management Risk Score: -- Case Status: Active (January 03, 2019) Date Assigned: December 19, 2018 Assigned By: Brice Stephenson RN Date Enrolled: January 03, 2019 Assigned Primary Personnel: Abraham VILLALPANDO, Dereck Perez Assigned Secondary Personnel: Mecca VILLALPANDO, Linda Galvin Case Physician: Dakotah Gallardo DO Problems Ongoing 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 Incontinence without sensory awareness Insomnia Irritable bowel syndrome with predominant constipation Lumbar radiculopathy, right Major depressive disorder, recurrent, mild Mild cognitive impairment Mixed incontinence OAB (overactive bladder) Obesity due to excess calories Other urethral stricture, female Pain of right sacroiliac joint Patient has healthcare proxy and living will Peripheral neuropathy RLS (restless legs syndrome) S/P knee replacement Severe obstructive sleep apnea Shoulder pain Somatic dysfunction of abdominal region Somatic dysfunction of cervical region Somatic dysfunction of lower extremities Somatic dysfunction of lumbar region Somatic dysfunction of rib cage region Somatic dysfunction of sacral spine Somatic dysfunction of thoracic region Spasm of lumbar paraspinous muscle Stage 3a chronic kidney disease (CKD) Stooped posture Thoracic aorta atherosclerosis Tremor Wears hearing aid in both ears Historical Abdominal pain, generalized Abnormal urinalysis Body mass index (BMI) of 31.0-31.9 in adult Bronchitis with bronchospasm Cervical radiculopathy Chest pain Dizziness WINTERS (dyspnea on exertion) Exposure to second hand smoke Frequent urination Hernia of abdominal wall History of UTI Leg edema Pain in back 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 Rib pain on right side Right hip pain Screening mammogram, encounter for Urinary urgency Procedure/Surgical History Injection of nerve root of lumbar spine using fluoroscopic guidance (06/03/2024), Injection (01/15/2024), Injection of nerve root of lumbar spine using fluoroscopic guidance (12/21/2023), Injection of nerve root of sacral spine [...] callus, mole removal, Tubal ligation. Home Medications acetaminophen-oxycodone 325 mg-5 mg Tab, 1 tab(s), Oral, TID amLODIPine 5 mg Tab, See Instructions cyclobenzaprine 5 mg Tab, 5 mg= 1 tab(s), Oral, Bedtime, 12 refills Dulcolax Tab-EC, 2-3 tabs, Oral, Daily gabapentin 300 mg Cap, 900 mg= 3 cap(s), Oral, TID, 1 refills Handicap Placard, See Instructions hydrochlorothiazide-triamterene 25 mg-37.5 mg Tab, See Instructions ibuprofen, 800 mg, Oral Misc DME Prescription, See Instructions nebulizer supplies, See Instructions, 11 refills omeprazole 20 mg Cap-DR, See Instructions Tylenol, 500 mg, Oral, q6hr, Not taking Allergies Chocolate (Anaphylaxis) Adhesive Bandage (Itching, Rash) [...] Previous treatment: None. Household tobacco concerns: No., 01/09/2024 Family History Alcoholism: Father. Metastatic cancer: Mother. Parkinson disease: Father. Parkinson's disease: Father. Primary malignant neoplasm of colon: Mother. Screenings and Assessments 01/03/19 12:08:00 Result Name Value Comment Phone Call Monitoring Consent Agreed to continue call Phone Verification Patient Information Full name, street address and date of verified CM Program Enrollment Written consent completed 01/03/19 12:00:00 Result Name Value Comment HIPPA Verified Type of Contact In person in the office Information Given by Patient CM Preferred Spoken Language Comoran CM Preferred Written Language Swiss Preferred Communication Mode Verbal Ability to Read/Write Able to read, Able to write Preferred Method of Contact Cell Best Time to Visit or Contact 10-1 pm, 1-5 pm Best Day to Visit or Contact No preference Preferred Way to Send PHI Standard mail Lives In Single level home Number in Household 3 Lives with handicapped brother and daughter. 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 Start Date: 2018 Target: - - Status: - - Barriers: - - Comments: - - Intervention Frequency Status Credit Or Loans Officer Use inhaler as prescribed by PCP - - Done - - Start Water aerobic exercises beginning 01/08/19 2 days per week to include water walking - - Done - - Use nebulizer machine as needed for SOB for COPD. - - Progressing - - 10/12/21 Fill Rx for Rescue pack and call CN if starts medications - - Done - - Goal: Will have improvement in lower leg swelling Start Date: 2020 Target: - - Status: - - Barriers: - - Comments: - - Intervention Frequency Status Credit Or Loans Officer Decrease sodium intake to 2000 mg daily, do not use salt shaker. - - Progressing - - Weigh daily, record and notify CN of 3# weight gain in day or %3 over a week. - - Not done - - Keep appointment with Dr. Sifuentes on 10/13/20 at 0920 - - Done - - 06/08/21 Patient is going to try to return to water aerobics once per week, - - Not done - - Keep legs elevated when sitting - - Progressing - - Goal: Reduce frequency of Urinary Tract infections Start Date: 2021 Target: - - Status: - - Barriers: - - Comments: - - Intervention Frequency Status Credit Or Loans Officer Call office at first signs and symptoms of UTI for urinalysis. - - Progressing - - Drink 64 oz of fluids each day to stay hydrated. - - Progressing - - Go to restroom at first sign of urinary urge and not hold. - - Progressing - - See urologist as needed. - - Progressing - - Botox injections for urinary incontinence every 6 months as needed. 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 Start Date: 2018 Target: - - Status: Met Barriers: - - Comments: - - Intervention Frequency Status Credit Or Loans Officer Start water therapy on January 08 and attend every Monday and each week - - Done - - Patient to call Chiropractor to have diapraghm put back in place as needed. - - Progressing - - Goal: Will have relief from constipation Start Date: 2019 Target: - - Status: Met Barriers: - - Comments: - - Intervention Frequency Status Credit Or Loans Officer Take OTC MiraLax 17 gm 1.5 caps BID - - Done - - Follow up with Title Supervisor as needed. - - Done - - Take Trulance 3 mg daily for constipation - - Done - - Right hernia repari surgery scheduled for 09/07/20. - - Done - - Take Ducolax 2 tab a bedtime as directed - - Done - - Progress Note 06/20/2024 LM Attempted to call patient for monthly CCM call ??? no answer left message along with CN contact info. 06/20/2024 7 minutes Call started at 1636. I received a call back from the patient???s daughter. She reports her mother is in a lot of pain. She said normally when her mother gets injections from pain management, they are painless and last for several months to a year. She reports this injection was really painful for her mother and it only lasted for about a day. She reports her mother has been getting up later than normal. She reports that since her pain medications have been adjusted her mother is shaky to the point she spilled her drink. She is having a difficult time walking due to the pain. She did contact pain management and was told it may take 1-2 weeks for her to get some relief from the injection. She reports her mother is in tears and she is having so much pain. She does report that her mother has an appointment with pain management on 06/24/2024 at 1300. She is going to wait and see if there is anything they can do for her pain and if she improves before making an appointment with PCP; she will call next week after appointment with update. Her mother is not experiencing any chest pain or shortness of breath. She does not having any swelling to her legs. The call ended at 1643. 06/25/2024 4 Called patient to see how she was doing and to see how appointment and to see how pain management appointment went. Call started at 1424. Patient???s daughter reports that they are going to try a different approach to see if they can get her some pain relief. She is asking if her mother can take Percocet three times a day instead of twice. Communication to PCP - I spoke to patient's daughter Geneva. She is asking if the Percocet order can be changed to TID; it is currently BID? She wants to have her take it morning, afternoon and at bedtime. She does have an appointment with pain management for a L5-S1 epidural steroid injection to be done under fluoroscopy for both diagnostic and therapeutic purposes on 07/02/2024. She did say patient has tried PT but this did not help. Call ended at 1427 07/05/2024 1 Call started at 1245. On 07/02/2024 L5/S1 lumbar interlaminar epidural steroid injection was performed patient. Called to check in on patient and to see if procedure helped with her pain. Spoke to her daughter Geneva. She reports that this procedure did help some; her pain is now tolerable. She said they do already know that eventually she will need surgery. She also reports that her mother is still taking gabapentin and Percocet. Patient has needs or concerns at this time. Call ended at 1246. 07/09/2024 1 Attempted to call patient to see if she has gotten relief since seeing pain management??? no answer ??? left message along with cn contact sobeida 07/09/2024 2 Call started at 1435. Received a call back from patient???s daughter Geneva. She reports that her mother is still having pain, but it is tolerable and has improved some. She reports that her mother is taking gabapentin tid and oxycodone bid. She did say she thought her mother would have had more improvement in her pain then what she is having but is glad the pain is more tolerable. Patient wishes to continue monthly [facility] calls. Cn will call patient again in July. Patient will take medications as prescribed, keep scheduled appointments and monitor for signs of CHF. Patient has no needs or concerns at this time. Call ended at 1435. Communication Events Date: July 09, 2024 Method: Phone call Type: Inbound Duration (min): 2 Outcome: Case discussion Contact Type: Patient emergency contact Contact Name: Geneva womack Notes: [facility] Update for June 2024 - see case summary note Created By: Linda Wing RN Date: July 09, 2024 Method: Phone call Type: Outbound Duration (min): 1 Outcome: Left message-voicemail Contact Type: Patient Contact Name: ANANT MATEO Todd Notes: [facility] U[date for June 2024 - attempted to call patient to see if she has gotten any relief since see pain management - no answer - left message along with cn contact info Created By: Linda Wing RN Date: July 05, 2024 Method: Phone call Type: Outbound Duration (min): 1 Outcome: Case discussion Contact Type: Patient emergency contact Contact Name: Geneva womack Notes: [facility] June 2024 - see case summary note Created By: Linda Wing RN Date: July 03, 2024 Method: Phone call Type: Outbound Duration (min): 1 Outcome: Left message-voicemail Contact Type: Patient emergency contact Contact Name: Geneva womack Notes: [facility] Update - called to check to see how patient is doing - no answer - left message along with cn contact info Created By: Linda Wing RN Date: June 20, 2024 Method: Phone call Type: Outbound Duration (min): 7 Outcome: Case discussion Contact Type: Patient emergency contact Contact Name: Geneva womack Notes: CCM Update - june 2024 - see case summary note Created By: Linda Wing RN Date: June 20, 2024 Method: Phone call Type: Outbound Duration (min): 1 Outcome: Left message-voicemail Contact Type: Patient Contact Name: MATEO [place] Notes: [facility] Update - called patient for monthly update - no answer - left message along with cn contact info Created By: Linda Wing RN Date: June 05, 2024 Method: Phone call Type: Outbound Duration (min): 4 Outcome: Case discussion Contact Type: Patient emergency contact Contact Name: Geneva womack Notes: called to see how she was progressing since procedure with pain management - see case summary note Created By: Linda Wing RN Date: May 24, 2024 Method: Phone call Type: Outbound Duration (min): 3 Outcome: Case discussion Contact Type: Patient Contact Name: MATEO [place] Notes: called to check in on patient's pain. see case summary note Created By: Linda Wing RN Date: May 21, 2024 Method: Phone call Type: Inbound Duration (min): 13 Outcome: Case discussion Contact Type: Patient emergency contact Contact Name: Geneva womack Notes: CCM Update - May 2024 - see case summary note Created By: Linda Wing RN Date: May 10, 2024 Method: Phone call Type: Outbound Duration (min): 23 Outcome: Case discussion Contact Type: Patient Contact Name: MATEO [place] Notes: [facility] Update for April 2024 - see case summary note Created By: Linda Wing RN Date: April 08, 2024 Method: Phone call Type: Outbound Duration (min): 14 Outcome: Case discussion Contact Type: Patient Contact Name: MATEO [place] Notes: [facility] Update for March 2024 -see case summary note Created By: Linda Wing RN Date: February 23, 2024 Method: Phone call Type: Outbound Duration (min): 1 Outcome: Left message-voicemail Contact Type: Patient Contact Name: MATEO [place] Notes: [facility] Update for February 2024 - no answer - left message along with cn contact info Created By: Linda Wing RN Date: February 06, 2024 Method: Phone call Type: Outbound Duration (min): 1 Outcome: Left message-voicemail Contact Type: Patient Contact Name: MATEO [place] Notes: [facility] update - january 2024 attempted to call patient for monthly follow up - no answer - left message along with cn contact info Created By: Linda Wing RN Date: January 11, 2024 Method: Phone call Type: Outbound Duration (min): 1 Outcome: Left message-voicemail Contact Type: Patient Contact Name: MATEO [place] Notes: [facility] Update - Called patient for December 2023 update - no answer - left message along with cn contact info Created By: Linda Wing RN Date: November 24, 2023 Method: In-person Type: -- Duration (min): 37 Outcome: Case discussion Contact Type: Patient Contact Name: MATEO [place] Notes: [facility] November 2023 update - see case summary note Created By: Linda Wing RN Date: November 23, 2023 Method: Phone call Type: Outbound Duration (min): 1 Outcome: Case discussion Contact Type: Patient emergency contact Contact Name: Geneva - daughter Notes: [facility] Nov 2023 - spoke to daughter - they have appt tomorrow 11/24/2023 and they will speak to me then Created By: Linda Wing RN Date: October 24, 2023 Method: Phone call Type: Outbound Duration (min): 1 Outcome: Left message-voicemail Contact Type: Patient emergency contact Contact Name: [place] Notes: [facility] Wojciechus - called for monthly follow up call - left message along with cn contact information Created By: Linda Wing RN Date: June 09, 2023 Method: Phone call Type: Outbound Duration (min): 7 Outcome: Case discussion Contact Type: academic affairs coordinator Contact Name: Dereck Rosario RN Notes: Called for [facility] CCM. See case summary note. Created By: Dereck Rosario RN Date: April 28, 2023 Method: Phone call Type: Outbound Duration (min): 3 Outcome: Case discussion Contact Type: academic affairs coordinator Contact Name: Dereck Rosario RN Notes: Called for Feb CCM. See case summary note. Created By: Dereck Rosario RN Date: April 05, 2023 Method: Phone call Type: Outbound Duration (min): 15 Outcome: Case discussion Contact Type: academic affairs coordinator Contact Name: Dereck Rosario RN Notes: Called for [facility] CCM. See case summary note. Created By: Dereck Rosario RN Date: March 08, 2023 Method: Phone call Type: Outbound Duration (min): 20 Outcome: Case discussion Contact Type: academic affairs coordinator Contact Name: Dereck Rosario RN Notes: Called for Dec CCM. See case summary note. Created By: Dereck Rosario RN Date: March 08, 2023 Method: Phone call Type: Outbound Duration (min): 1 Outcome: Left message-voicemail Contact Type: academic affairs coordinator Contact Name: Dereck Rosario RN Notes: Called for Dec CCM. Left message asking for return phone call. Created By: Dereck Rosario RN Date: January 13, 2023 Method: Phone call Type: Inbound Duration (min): 10 Outcome: Case discussion Contact Type: Patient Contact Name: MATEO [place] Notes: CCM patient called, see FT summary note. Created By: Aminata Mendieta RN Date: January 12, 2023 Method: Phone call Type: Outbound Duration (min): 10 Outcome: Case discussion Contact Type: Complex daycare managerproject manager finance Name: Aminata Mendieta RN Notes: Called patient for CCM follow-up, spoke with daughter see FT summary note. Created By: Aminata Mendieta RN Date: November 23, 2022 Method: Phone call Type: Outbound Duration (min): 1 Outcome: Left message-voicemail Contact Type: Complex daycare managerproject manager finance Name: Aminata Mendieta RN Notes: Attempted to call daughter cell phone for CCM follow-up, no answer, left message asking for a return call. Created By: Aminata Mendieta RN Date: November 23, 2022 Method: Phone call Type: Outbound Duration (min): 1 Outcome: Left message-voicemail Contact Type: Complex daycare managerproject manager finance Name: Aminata Mendieta RN Notes: Attempted to call patient for CCM, no answer left message asking for a return call. Created By: Aminata Mendieta RN Date: August 31, 2022 Method: Phone call Type: Outbound Duration (min): 17 Outcome: Case discussion Contact Type: Pharmacist Contact Name: Alejo BansalAnaNelli Notes: Medication review with pharmacy. See SOAP note. Created By: Aminata Mendieta RN Date: August 23, 2022 Method: Phone call Type: Outbound Duration (min): 7 Outcome: Case discussion Contact Type: Medical facility Contact Name: Aminata Mendieta Notes: spoke with Iris from Patient expereince, please see FT summary note. Created By: Aminata Mendieta RN Date: August 23, 2022 Method: Phone call Type: Outbound Duration (min): 16 Outcome: Case discussion Contact Type: Complex daycare managerproject manager finance Name: Aminata Mendieta RN Notes: Daughter left 2 messages while CCN on vacation, returned call see FT summary note. Created By: Aminata Mendieta RN Date: August 01, 2022 Method: Phone call Type: Inbound Duration (min): 7 Outcome: Case discussion Contact Type: Patient advocate Contact Name: Geneva Ny Notes: Daughterr called with updates. See FT summary note. Created By: Aminata Mendieta RN Date: July 21, 2022 Method: Phone call Type: Outbound Duration (min): 15 Outcome: Case discussion Contact Type: Complex daycare managerproject manager finance Name: Aminata Mendieta RN Notes: See FT summary note. Created By: Aminata Mendieta RN Date: July 15, 2022 Method: Phone call Type: Outbound Duration (min): 1 Outcome: Left message-voicemail Contact Type: Complex daycare managerproject manager finance Name: Aminata Mendieta RN Notes: Daughter left message at 1030 asking for a return call, called daughter, no answer, left message to call again. Patient was seen by Dr. Hernandez today in [facility]. Created By: Aminata Mendieta RN Date: June 22, 2022 Method: Phone call Type: Outbound Duration (min): 20 Outcome: Case discussion Contact Type: Complex daycare managerproject manager finance Name: Aminata Mendieta RN Notes: Daughter left message asking for a return call, called patient, spoke with daughter see FT summary note. Created By: Aminata Mendieta RN Date: May 25, 2022 Method: Phone call Type: Inbound Duration (min): 1 Outcome: Case discussion Contact Type: Patient Contact Name: MATEO [place] Notes: Daughter left message that she started Rescue pack and would like a generic refill for Dexilant, see message center note. Created By: Aminata Mendieta RN Date: May 19, 2022 Method: Phone call Type: Inbound Duration (min): 3 Outcome: Case discussion Contact Type: Patient advocate Contact Name: [place] Ny Notes: Daughter called with information for help at hand for Dexilant. see message center note. Created By: Aminata Mendieta RN Date: May 17, 2022 Method: Phone call Type: Inbound Duration (min): 22 Outcome: Case discussion Contact Type: Patient advocate Contact Name: Geneva Ny Notes: Daughter Geneva calls with concerns see message center note. Created By: Aminata Mendieta RN Date: May 10, 2022 Method: Phone call Type: Outbound Duration (min): 10 Outcome: Case discussion Contact Type: Complex daycare managerproject manager finance Name: Aminata Mendieta RN Notes: Daughter left message asking for a return call. Called daughter, see FT summary note. Created By: Aminata Mendieta RN Date: March 25, 2022 Method: Phone call Type: Inbound Duration (min): 10 Outcome: Case discussion Contact Type: Patient Contact Name: MATEO [place] Notes: CCM patient calls with complaints of thrush again, see message center note. Created By: Aminata Mendieta RN Date: March 16, 2022 Method: Phone call Type: Outbound Duration (min): 5 Outcome: Case discussion Contact Type: Complex daycare managerproject manager finance Name: Aminata Mendieta RN Notes: Called daughter back regarding Prednsone prescription. See message center note. Created By: Aminata Mendieta RN Date: March 16, 2022 Method: Phone call Type: Outbound Duration (min): 1 Outcome: Case discussion Contact Type: Complex daycare managerproject manager finance Name: Juani De La Garza MA Notes: [facility] called patient about prescription for Prednisone. Created By: Aminata Mendieta RN Date: March 15, 2022 Method: Phone call Type: Outbound Duration (min): 1 Outcome: Left message-voicemail Contact Type: Complex daycare managerproject manager finance Name: Amniata Mendieta RN Notes: Left message that Pulmonology office should call tomorrow to schedule patient. Created By: Aminata Mendieta RN Date: March 15, 2022 Method: Phone call Type: Outbound Duration (min): 3 Outcome: Case discussion Contact Type: Specialist Contact Name: Aminata Mendieta RN Notes: Called Pulmonology to see about referral for patient, see message center note. Created By: Aminata Mendieta RN Date: March 04, 2022 Method: Phone call Type: Outbound Duration (min): 6 Outcome: Case discussion Contact Type: Complex daycare managerproject manager finance Name: Aminata Mendieta RN Notes: Called [facility] patient for follow-up on thrush, see FT summary note. Created By: Aminata Mendieta RN Date: February 21, 2022 Method: Phone call Type: Inbound Duration (min): 15 Outcome: Case discussion Contact Type: Patient Contact Name: MATEO [place] Notes: [facility] patient called started COPD rescue pack 02/18/22. See FT summary note. Created By: Aminata Mendieta RN Date: February 15, 2022 Method: Phone call Type: Outbound Duration (min): 1 Outcome: Case discussion Contact Type: Complex daycare managerproject manager finance Name: Aminata Mendieta RN Notes: CCM patient called for follow-up and to schedule appointment, no answer, left voicemail asking for a return call. Created By: Aminata Mendieta RN Date: January 24, 2022 Method: Phone call Type: Outbound Duration (min): 11 Outcome: Case discussion Contact Type: Complex daycare managerproject manager finance Name: Aminata Mendieta RN Notes: Called [facility] patient for follow-up. Created By: Aminata Mendieta RN Date: January 13, 2022 Method: In-person Type: -- Duration (min): 7 Outcome: Case discussion Contact Type: Complex daycare managerproject manager finance Name: Aminata Mendieta RN Notes: Patient in office asking for samples of Stiolto Respimat. Created By: Aminata Mendieta RN Date: January 12, 2022 Method: Phone call Type: Outbound Duration (min): 3 Outcome: Case discussion Contact Type: Complex daycare managerproject manager finance Name: Debbi Hammer Notes: See message center note. Created By: Aminata Mendieta RN Date: January 12, 2022 Method: Phone call Type: Inbound Duration (min): 6 Outcome: Case discussion Contact Type: Patient advocate Contact Name: [place] Ny Notes: Daughter called patient started COPD Rescue pack on 01/09/22, see message center note. Created By: Aminata Mendieta RN Date: December 28, 2021 Method: Phone call Type: Inbound Duration (min): 25 Outcome: Case discussion Contact Type: Patient advocate Contact Name: [place] Ny Notes: daughter called with updates and needs for medications. See message center note. Created By: Aminata Mendieta RN Date: November 30, 2021 Method: Phone call Type: Outbound Duration (min): 18 Outcome: Case discussion Contact Type: Complex daycare managerproject manager finance Name: Aminata Mendieta RN Notes: Called [facility] patient for follow-up, see FT summary note. Created By: Aminata Mendieta RN Date: November 23, 2021 Method: Phone call Type: Inbound Duration (min): 5 Outcome: Case discussion Contact Type: Patient advocate Contact Name: -- Notes: Daughter called regarding patient breathing and samples of Stioloto inhaler. See FT summary note. Created By: Aminata Mendieta RN Date: November 02, 2021 Method: Phone call Type: Outbound Duration (min): 1 Outcome: Left message-voicemail Contact Type: Complex daycare managerproject manager finance Name: Aminata Mendieta RN Notes: Left message regarding samples and [facility] phone number and to call if any questions. Created By: Aminata Mendieta RN Date: November 02, 2021 Method: Phone call Type: Outbound Duration (min): 7 Outcome: Case discussion Contact Type: Complex daycare managerproject manager finance Name: -- Notes: CCM follow-up see FT summary note. Created By: Aminata Mendieta RN Date: October 13, 2021 Method: Phone call Type: Outbound Duration (min): 3 Outcome: Case discussion Contact Type: Complex daycare managerproject manager finance Name: Aminata Mendieta RN Notes: Called daughter and explained information regrding [facility] incontinence program. See Ft summary note. Created By: Aminata Mendieta RN Date: October 13, 2021 Method: Phone call Type: Outbound Duration (min): 4 Outcome: Case discussion Contact Type: Vendor Contact Name: Enzo Notes: Called [facility] to see if there was any coverage for incontinence supplies. Medicare does nort cover but they have incontinence program. See FT summary note. Created By: Aminata Mendieta RN Date: October 13, 2021 Method: Phone call Type: Outbound Duration (min): 10 Outcome: Case discussion Contact Type: Complex daycare managerproject manager finance Name: Aminata Mendieta RN Notes: Called CCM patient to confirm cancellation of appointment and schedule to establish with Dr. Gallardo Created By: Aminata Mendieta RN Date: September 30, 2021 Method: Phone call Type: Outbound Duration (min): 4 Outcome: Case discussion Contact Type: Complex daycare managerproject manager finance Name: Aminata Mendieta RN Notes: Called CCM patient for follow-up after leaving ED AMA yesterday. See message center note. Created By: Aminata Mendieta RN Date: September 29, 2021 Method: Phone call Type: Inbound Duration (min): 6 Outcome: Case discussion Contact Type: Patient advocate Contact Name: [place] Carusoo Notes: Patient daughter called patient having chest pain, see message center note. Created By: Aminata Mendieta RN Date: September 23, 2021 Method: Phone call Type: Outbound Duration (min): 6 Outcome: Case discussion Contact Type: Complex daycare managerproject manager finance Name: Aminata Mendieta RN Notes: Called CCM for update on cough, see message center note. Created By: Aminata Mendieta RN Date: September 21, 2021 Method: Phone call Type: Outbound Duration (min): 3 Outcome: Case discussion Contact Type: Complex daycare managerproject manager finance Name: Aminata Mendieta RN Notes: Called patient rescheduled appointment and advised to restart Mucinex and chaeck with pharmacy this afternoon for new prescriptions. See message center note. Created By: Aminata Mendieta RN Date: September 21, 2021 Method: Phone call Type: Outbound Duration (min): 3 Outcome: Case discussion Contact Type: Complex daycare managerproject manager finance Name: Aminata Mendieta RN Notes: Patient could not wait on hold for Telehealth visit. Will speak with Dr. sifuentes and call back with plan of care. Created By: Aminata Mendieta RN Date: September 21, 2021 Method: Phone call Type: Outbound Duration (min): 2 Outcome: Case discussion Contact Type: Complex daycare managerproject manager finance Name: Aminata Mendieta RN Notes: Called patient to schedule appointment per Dr. Sifuentes. See message center note. Created By: Aminata Mendieta RN Date: September 20, 2021 Method: Phone call Type: Outbound Duration (min): 2 Outcome: Case discussion Contact Type: Complex daycare managerproject manager finance Name: Aminata Mendieta RN Notes: Called daughter and explained message sent to Dr. Sifuentes and if patient symptoms worsen please take to [facility], will call with answer. Created By: Aminata Mendieta RN Date: September 20, 2021 Method: Phone call Type: Inbound Duration (min): 1 Outcome: Case discussion Contact Type: Patient advocate Contact Name: Geneva Anant Notes: Daughter left message about productive cough, see message center note. Created By: Aminata Mendieta RN Date: September 09, 2021 Method: Phone call Type: Outbound Duration (min): 25 Outcome: Case discussion Contact Type: Complex daycare managerproject manager finance Name: Aminata Mendieta RN Notes: CCM follow-up, see FT summary note. Created By: Aminata Mendieta RN Date: September 08, 2021 Method: Phone call Type: Outbound Duration (min): -- Outcome: No answer Contact Type: Complex daycare managerproject manager finance Name: Aminata Mendieta RN Notes: Attempted to call daughter to notify of samples available, no answer, no voicemail, Will try again. Created By: Aminata Mendieta RN Date: August 30, 2021 Method: Phone call Type: Inbound Duration (min): 4 Outcome: Case discussion Contact Type: Patient advocate Contact Name: Jovanyclayton averyanant Notes: See message center note regarding samples of Stiolto Created By: Aminata Mendieta RN Date: August 05, 2021 Method: Phone call Type: Outbound Duration (min): 10 Outcome: Case discussion Contact Type: Complex daycare managerproject manager finance Name: Aminata Mendieta RN Notes: CCM follow-up, see FT summary note. Created By: Aminata Mendieta RN Date: July 28, 2021 Method: Phone call Type: Outbound Duration (min): 5 Outcome: Case discussion Contact Type: Complex daycare managerproject manager finance Name: Aminata Mendieta RN Notes: Called daughter back, see message center note. Created By: Aminata Mendieta RN Date: July 28, 2021 Method: Phone call Type: Inbound Duration (min): 1 Outcome: Case discussion Contact Type: Patient advocate Contact Name: Geneva Ny Notes: Daughter left message asking for a return call. Created By: Aminata Mendieta RN Date: July 19, 2021 Method: Phone call Type: Outbound Duration (min): 5 Outcome: Case discussion Contact Type: Complex daycare managerproject manager finance Name: Aminata Mendieta RN Notes: Called [facility] patient regarding cough, see message center note. Created By: Aminata Mendieta RN Date: July 16, 2021 Method: Phone call Type: Inbound Duration (min): 11 Outcome: Case discussion Contact Type: Patient Contact Name: MATEO [place] Notes: Patient returened call with concerns, see message center note. Created By: Aminata Mendieta RN Date: July 16, 2021 Method: Phone call Type: Outbound Duration (min): -- Outcome: Left message-voicemail Contact Type: Complex daycare managerproject manager finance Name: Aminata Mendieta RN Notes: Attempted to call patint for CCM follow-up, no answer, left message asking for a return call. Created By: Aminata Mendieta RN Date: June 30, 2021 Method: Phone call Type: Outbound Duration (min): 22 Outcome: Case discussion Contact Type: Complex daycare managerproject manager finance Name: Aminata Mendieta RN Notes: CCM monthly follow-up. See FT summary note. Created By: Aminata Mendieta RN Date: June 22, 2021 Method: Phone call Type: Outbound Duration (min): 3 Outcome: Case discussion Contact Type: Complex daycare managerproject manager finance Name: Aminata Mendieta RN Notes: Called CCM patient for bi-weekly follow-up. See FT summary note. Created By: Aminata Mendieta RN Date: June 14, 2021 Method: Phone call Type: Outbound Duration (min): 1 Outcome: Left message-voicemail Contact Type: Complex daycare managerproject manager finance Name: Aminata Mendieta RN Notes: Left message explaining prescription had refill at [facility] and to call if any problems. Created By: Aminata Mendieta RN Date: June 14, 2021 Method: Phone call Type: Inbound Duration (min): 1 Outcome: Case discussion Contact Type: Patient advocate Contact Name: Geneva Ny Notes: Left message asking for a refill of Albuterol and return call. Created By: Aminata Mendieta RN Date: June 08, 2021 Method: Phone call Type: Outbound Duration (min): 15 Outcome: Case discussion Contact Type: Complex daycare managerproject manager finance Name: Aminata Mendieta RN Notes: Called CCM patient for follow-up after Botox injections. See FT summary note. Created By: Aminata Mendieta RN Date: May 24, 2021 Method: Phone call Type: Inbound Duration (min): 13 Outcome: Case discussion Contact Type: Patient advocate Contact Name: Geneva Ny Notes: Daughter of CCM patient called regarding a technicians and trades workers referral. SEe FT summary note. Created By: Aminata Mendieta RN Date: May 10, 2021 Method: Phone call Type: Outbound Duration (min): 5 Outcome: Case discussion Contact Type: Complex daycare managerproject manager finance Name: Aminata Mendieta RN Notes: CCm follow-up, see FT summary note. Created By: Aminata Mendieta RN Date: April 19, 2021 Method: Phone call Type: Outbound Duration (min): 1 Outcome: Case discussion Contact Type: Complex daycare managerproject manager finance Name: Aminata Mendieta RN Notes: Called daughter regrding samples of Stioloto Respimat samples. See message center note. Created By: Aminata Mendieta RN Date: April 16, 2021 Method: Phone call Type: Outbound Duration (min): 14 Outcome: Case discussion Contact Type: Complex daycare managerproject manager finance Name: Aminata Mendieta RN Notes: Called CCM patient for follow-up, see case summary note. Created By: Aminata Mendieta RN Date: March 31, 2021 Method: Phone call Type: Outbound Duration (min): 6 Outcome: Case discussion Contact Type: Complex daycare managerproject manager finance Name: Aminata Mendieta RN Notes: CCM follow-up see summary note. Created By: Aminata Mendieta RN Date: March 24, 2021 Method: Phone call Type: Outbound Duration (min): 1 Outcome: Left message-voicemail Contact Type: Complex daycare managerproject manager finance Name: Aminata Mendieta RN Notes: Attempted to return patient call, no answer, left message. See message cente rnote. Created By: Aminata Mendieta RN Date: March 24, 2021 Method: Phone call Type: Inbound Duration (min): 1 Outcome: Case discussion Contact Type: Patient advocate Contact Name: Geneva Averycuso Notes: Patient daughter left message asking for a call back regarding ATB. Created By: Aminata Mendieta RN Date: March 23, 2021 Method: Phone call Type: Outbound Duration (min): 4 Outcome: Case discussion Contact Type: Complex daycare managerproject manager finance Name: Aminata Mendieta RN Notes: Called [facility] patient for follow-up on ED visit from 03/20/21. See summary note. Created By: Aminata Mendieta RN Date: March 19, 2021 Method: Phone call Type: Outbound Duration (min): 11 Outcome: Case discussion Contact Type: Complex daycare managerproject manager finance Name: Aminata Mendieta RN Notes: Called [facility] patient for follow-up. See summary note. Created By: Aminata Mendieta RN Date: March 01, 2021 Method: Phone call Type: Outbound Duration (min): 2 Outcome: Case discussion Contact Type: Complex daycare managerproject manager finance Name: Aminata Mendieta RN Notes: Called [facility] regarding inhaler samples, see messsage center note. Created By: Aminata Mendieta RN Date: February 24, 2021 Method: Phone call Type: Inbound Duration (min): 5 Outcome: Case discussion Contact Type: Patient advocate Contact Name: Geneva Ny Notes: See message center note. Created By: Aminata Mendieta RN Date: February 23, 2021 Method: Phone call Type: Outbound Duration (min): 3 Outcome: Case discussion Contact Type: Complex daycare managerproject manager finance Name: Aminata Mendieta RN Notes: See message center note. Created By: Aminata Mendieta RN Date: February 22, 2021 Method: Phone call Type: Inbound Duration (min): 2 Outcome: Case discussion Contact Type: Patient advocate Contact Name: Geneva Ny Notes: Daughter left detailed message see message note. Created By: Aminata Mendieta RN Date: February 22, 2021 Method: Phone call Type: Inbound Duration (min): 20 Outcome: Case discussion Contact Type: Patient advocate Contact Name: Geneva Ny Notes: Patient daughter called see case summary note. Created By: Aminata Mendieta RN Date: December 31, 2020 Method: Phone call Type: Inbound Duration (min): 2 Outcome: Case discussion Contact Type: Patient advocate Contact Name: Geneva Ny Notes: Daughter called asking about upcoming appointment times and dates. See message cente note. Created By: Aminata Mendieta RN Date: December 22, 2020 Method: Phone call Type: Inbound Duration (min): 2 Outcome: Case discussion Contact Type: Patient Contact Name: MATEO [place] Notes: See case summary note Created By: Aminata Mendieta RN Date: December 22, 2020 Method: Phone call Type: Outbound Duration (min): 3 Outcome: Case discussion Contact Type: Complex daycare managerproject manager finance Name: Aminata Mendieta RN Notes: See message center note. Created By: Aminata Mendieta RN Date: December 22, 2020 Method: Phone call Type: Outbound Duration (min): 5 Outcome: Case discussion Contact Type: Complex daycare managerproject manager finance Name: Aminata Mendieta RN Notes: Called patient regarding messages from Dr. Sifuentes, see message center notes x 2. Created By: Aminata Mendieta RN Date: December 21, 2020 Method: Phone call Type: Outbound Duration (min): 9 Outcome: Case discussion Contact Type: Complex daycare managerproject manager finance Name: Aminata Mendieta RN Notes: See case summary note. Created By: Aminata Mendieta RN Date: December 18, 2020 Method: Phone call Type: Outbound Duration (min): 2 Outcome: Case discussion Contact Type: Patient advocate Contact Name: Dtrachana Franco Notes: CN let her know that was not in today, dtr states that she thinks pt has enough to get thorugh till Monday. CN instucted her to call on Monday if she doesn't hear from Aminata or myself. Created By: Linda Mcdonald RN Date: December 18, 2020 Method: Phone call Type: Outbound Duration (min): 1 Outcome: Case discussion Contact Type: Medical facility Contact Name: [facility] [place] [facility] Notes: They have stiolto 5 mcg samples only, message sent to PCP; Created By: Linda Mcdonald RN Date: December 04, 2020 Method: Phone call Type: Outbound Duration (min): 4 Outcome: Case discussion Contact Type: Complex daycare managerproject manager finance Name: Aminata Mendieta RN Notes: See message center note. Created By: Aminata Mendieta RN Date: December 03, 2020 Method: Phone call Type: Inbound Duration (min): 17 Outcome: Case discussion Contact Type: Patient Contact Name: MATEO [place] Notes: [facility] patient called with concerns, see message center note. Created By: Aminata Mendieta RN Date: November 09, 2020 Method: Phone call Type: Outbound Duration (min): 12 Outcome: Case discussion Contact Type: Complex daycare managerproject manager finance Name: Aminata Mendieta RN Notes: Called [facility] patient for update from ED visit yesterday. See case summary note. Created By: Aminata Mendieta RN Date: October 22, 2020 Method: Phone call Type: Inbound Duration (min): 20 Outcome: Case discussion Contact Type: Patient Contact Name: MATEO [place] Notes: CCM call for October, see case summary note. Created By: Aminata Mendieta RN Date: October 22, 2020 Method: Phone call Type: Outbound Duration (min): -- Outcome: No answer Contact Type: Complex daycare managerproject manager finance Name: Aminata Mendieta RN Notes: Attempted to call daughter regarding sample of inhaler, no answer, voicemail full. Created By: Aminata Mendieta RN Date: October 22, 2020 Method: Phone call Type: Outbound Duration (min): -- Outcome: Left message-voicemail Contact Type: Complex daycare managerproject manager finance Name: Aminata Mendieta RN Notes: Attempted o call patint for October [facility] follow-up. No answer, left message asking ofr a return call. Created By: Aminata Mendieta RN Date: October 21, 2020 Method: Phone call Type: Inbound Duration (min): 3 Outcome: Case discussion Contact Type: Patient advocate Contact Name: Geneva Ny Notes: Daughter called regarding need for Stioloto Respimt inhaler, see case summary note. Created By: Aminata Mendieta RN Date: September 22, 2020 Method: Phone call Type: Inbound Duration (min): 22 Outcome: Case discussion Contact Type: Patient Contact Name: MATEO [place] Notes: [facility] patient called with questions and concerns. See case summary note. Created By: Aminata Mendieta RN Date: September 08, 2020 Method: Phone call Type: Outbound Duration (min): 3 Outcome: Case discussion Contact Type: Complex daycare managerproject manager finance Name: Aminata Mendieta RN Notes: Called [facility] patient regarding outpatient surgery yesterdy, see case summary note. Created By: Aminata Mendieta RN Date: September 02, 2020 Method: Phone call Type: Outbound Duration (min): 19 Outcome: Case discussion Contact Type: Complex daycare managerproject manager finance Name: Aminata Mendieta RN Notes: [facility] monthly follow-up, see case summary note. Created By: Aminata Mendieta RN Date: September 02, 2020 Method: Phone call Type: Outbound Duration (min): -- Outcome: Left message-voicemail Contact Type: Complex daycare managerproject manager finance Name: Aminata Mendieta RN Notes: Patient left message on [facility] phone asking for a return call, called patient , no answer, left message asking for a return call. Created By: Aminata Mendieta RN Date: August 13, 2020 Method: Phone call Type: Outbound Duration (min): 2 Outcome: Case discussion Contact Type: Complex daycare managerproject manager finance Name: Aminata Mendieta RN Notes: Called [facility] patient regarding medication for ringworm, see message center note. Created By: Aminata Mendieta RN Date: August 11, 2020 Method: Phone call Type: Inbound Duration (min): 3 Outcome: Case discussion Contact Type: Complex daycare managerproject manager finance Name: Lexii Casper MA Notes: See message center note regarding ringworm Created By: Aminata Mendieta RN Date: July 29, 2020 Method: Phone call Type: Outbound Duration (min): 21 Outcome: Case discussion Contact Type: Complex daycare managerproject manager finance Name: Aminata Mendieta RN Notes: [facility] monthly follow-up, patient in ED yesterday. See case summary note. Created By: Aminata Mendieta RN Date: July 10, 2020 Method: Phone call Type: Outbound Duration (min): 26 Outcome: Case discussion Contact Type: Complex daycare managerproject manager finance Name: Aminata Mendieta RN Notes: [facility] monthly call. See case summary note. Created By: Aminata Mendieta RN Date: February 27, 2020 Method: Phone call Type: Outbound Duration (min): 21 Outcome: Case discussion Contact Type: academic affairs coordinator Contact Name: Aminata Mendieta RN Notes: [facility] monthly call, See case summary note. Created By: Aminata Mendieta RN Date: December 31, 2019 Method: Phone call Type: Outbound Duration (min): 2 Outcome: Case discussion Contact Type: Complex daycare managerproject manager finance Name: Aminata Mendieta RN Notes: [facility] patient notified of prescriptions sent in, see message center note. Created By: Aminata Mendieta RN Date: December 30, 2019 Method: Phone call Type: Outbound Duration (min): 22 Outcome: Case discussion Contact Type: Complex daycare managerproject manager finance Name: Aminata Mendieta RN Notes: CCM call, see case summary note. Created By: Aminata Mendieta RN Date: December 09, 2019 Method: Phone call Type: Outbound Duration (min): 7 Outcome: Case discussion Contact Type: Complex daycare managerproject manager finance Name: Aminata Mendieta RN Notes: [facility] monthly call, see case summary note. Created By: Aminata Mendieta RN Date: November 28, 2019 Method: Phone call Type: Outbound Duration (min): 1 Outcome: Case discussion Contact Type: Complex daycare managerproject manager finance Name: Teena Zheng Notes: See message center note. Created By: Aminata Mendieta RN Date: November 28, 2019 Method: Phone call Type: Inbound Duration (min): 3 Outcome: Case discussion Contact Type: Patient Contact Name: ANANT MATEO G Notes: See message center note. Created By: Aminata Mendieta RN Date: November 13, 2019 Method: Phone call Type: Inbound Duration (min): 11 Outcome: Case discussion Contact Type: Complex daycare managerproject manager finance Name: Aminata Mendieta RN Notes: [facility] patient called with concerns, see case summary note. Created By: Aminata Mendieta RN Date: November 05, 2019 Method: Phone call Type: Outbound Duration (min): 8 Outcome: Case discussion Contact Type: Complex daycare managerproject manager finance Name: Aminata Mendieta RN Notes: [facility] call October, see case summary note. Created By: Aminata Mendieta RN Date: October 28, 2019 Method: Phone call Type: Inbound Duration (min): 2 Outcome: Case discussion Contact Type: Complex daycare managerproject manager finance Name: Blanka Swain LPN Notes: Patient returned call regarding increase in medications. see message center note. Created By: Aminata Mendieta RN Date: October 28, 2019 Method: Phone call Type: Outbound Duration (min): 3 Outcome: Case discussion Contact Type: Complex daycare managerproject manager finance Name: Case Moon URIAS Notes: Results given regarding abdominal xray and Dr. Sifuentes recommendations, see message center note. Created By: Aminata Mendieta RN Date: October 21, 2019 Method: Phone call Type: Outbound Duration (min): 8 Outcome: Case discussion Contact Type: Complex daycare managerproject manager finance Name: Aminata Mendieta RN Notes: [facility] October call. See case summary note. Created By: Aminata Mendieta RN Date: September 03, 2019 Method: Phone call Type: Outbound Duration (min): 21 Outcome: Case discussion Contact Type: Complex daycare managerproject manager finance Name: Aminata Mendieta RN Notes: [facility] monthly August call. See case summary call. Created By: Aminata Mendieta RN Date: July 30, 2019 Method: Phone call Type: Outbound Duration (min): 21 Outcome: Case discussion Contact Type: social media managerproject manager finance Name: Aminata Mendieta RN Notes: [facility] May call, see caase summary note. Created By: Aminata Mendieta RN Date: July 09, 2019 Method: Phone call Type: Outbound Duration (min): 17 Outcome: Case discussion Contact Type: academic affairs coordinator Contact Name: Aminata Mendieta RN Notes: [facility] bi-weekly call. see case summary note. Created By: Aminata Mendieta RN Date: July 08, 2019 Method: Phone call Type: Outbound Duration (min): -- Outcome: No answer Contact Type: social media managerproject manager finance Name: Aminata Mendieta RN Notes: Attempted to call patient for update on medicaations, no answer, unable to leave voicemail. Created By: Aminata Mendieta RN Date: June 18, 2019 Method: Phone call Type: Outbound Duration (min): -- Outcome: Case discussion Contact Type: social media managerproject manager finance Name: Aminata Mendieta RN Notes[facility], no answer, left message asking for return call. Created By: Aminata Mendieta RN Date: June 04, 2019 Method: Phone call Type: Outbound Duration (min): 13 Outcome: Case discussion Contact Type: social media managerproject manager finance Name: Aminata Mendieta RN Notes: CCM May call, see case summary note. Created By: Aminata Mendieta RN Date: June 04, 2019 Method: Phone call Type: Outbound Duration (min): 1 Outcome: Left message-voicemail Contact Type: academic affairs coordinator Contact Name: Aminata Mendieta RN Notes: CCM May call, no answer, left message asking for return call. Created By: Aminata Mendieta RN Date: May 20, 2019 Method: Phone call Type: Outbound Duration (min): 13 Outcome: Case discussion Contact Type: social media managerproject manager finance Name: Aminata Mendieta RN Notes: CCM May call. see case summary note. Created By: Aminata Mendieta RN Date: April 26, 2019 Method: Phone call Type: Inbound Duration (min): 10 Outcome: Case discussion Contact Type: Patient Contact Name: MATEO [place] Notes: Patient called CN for CCM follow-up. See Case Summary Note. Created By: Brice Stephenson RN Date: April 16, 2019 Method: In-person Type: -- Duration (min): 22 Outcome: Case discussion Contact Type: Patient Contact Name: MATEO [place] Notes: Patient came to primary care office for assistance with medication patient assistance form. See Case Summary note. Created By: Brice Stephenson RN Date: April 16, 2019 Method: Phone call Type: Outbound Duration (min): -- Outcome: Left message-voicemail Contact Type: social media managerproject manager finance Name: Brice Stephenson RN Notes: CN attempted to call patient for CCM follow-up related to assistance with patient drug assistance paperwork completion. Message left with needed information from patient. Asked patient to return call to CN to discuss further. Created By: Brice Stephenson RN Date: April 08, 2019 Method: Phone call Type: Outbound Duration (min): 22 Outcome: Case discussion Contact Type: social media managerproject manager finance Name: Brice Stephenson RN Notes: CN returned call to patient. See Case Summary note. Created By: Brice Stephenson RN Date: April 08, 2019 Method: Phone call Type: Inbound Duration (min): -- Outcome: Case discussion Contact Type: Patient Contact Name: MATEO [place] Notes: Patient called and left message for CN requesting return call. Patient notes she has received paperwork in regards to her refill medication and needs assistance to complete paperwork from PCP office. Asking for return phone call. Created By: Brice Stephenson RN Date: April 08, 2019 Method: Phone call Type: Outbound Duration (min): -- Outcome: No answer Contact Type: social media managerproject manager finance Name: Brice Stephenson RN Notes: CN attempted to return patient's call. No answer. Patient's VM currently noted to be full and unable to leave a message at this time. Created By: Brice Stephenson RN Date: March 11, 2019 Method: Phone call Type: Outbound Duration (min): 5 Outcome: Case discussion Contact Type: social media managerproject manager finance Name: Brice Stephenson RN Notes: CN returned call to patient for CCM follow-up call. See Case Summary note. Created By: Brice Stephenson RN Date: March 10, 2019 Method: Phone call Type: Inbound Duration (min): -- Outcome: Case discussion Contact Type: Patient Contact Name: MATEO [place] Notes: Patient called and left message on CN message system over the weekend. Reports she feels strange but states it is not an emergency. Requesting a call back. Created By: Brice Stephenson RN Date: February 27, 2019 Method: In-person Type: -- Duration (min): 4 Outcome: Case discussion Contact Type: social media managerproject manager finance Name: Brice Stephenson RN Notes: CN returned call to patient after conferring with PCP. Created By: Brice Stephenson RN Date: February 27, 2019 Method: Phone call Type: Inbound Duration (min): 7 Outcome: Case discussion Contact Type: Patient Contact Name: MAETO [place] Notes: Patient called CN about Eye appt and BP concerns, CCM follow-up. See Case Summary note. Created By: Brice Stephenson RN Date: February 20, 2019 Method: Phone call Type: Outbound Duration (min): -- Outcome: Left message-voicemail Contact Type: social media managerproject manager finance Name: Brice Stephenson RN Notes: CN attempted to call patient for CCM follow-up call. No answer. Left message asking for return phone call with patient update. Created By: Brice Stephenson RN Date: February 20, 2019 Method: Phone call Type: Inbound Duration (min): 22 Outcome: Case discussion Contact Type: Patient Contact Name: MATEO [place] Notes: Patient returned call to CN for CCM follow-up call. See Case Summary note. Created By: Brice Stephenson RN Date: February 08, 2019 Method: Phone call Type: Outbound Duration (min): -- Outcome: Left message-voicemail Contact Type: social media managerproject manager finance Name: Brice Stephenson RN Notes: CN attempted to call patient for CCM follow-up. No answer. Left message asking for return call. Created By: Brice Stephenson RN Date: January 03, 2019 Method: Phone call Type: Outbound Duration (min): 67 Outcome: Case discussion Contact Type: social media managerproject manager finance Name: Brice Stephenson RN Notes: CN met with patient for [facility] initial intake assessment. See I-view and Case Summary note. Created By: Brice Stephenson RN OPERATIVE REPORT Observed: 07/02/2024 9:07 AM Status: F Source: [facility] Operative Report Diagnosis: M54.16, lumbar radiculopathy Procedure: L5/S1 lumbar interlaminar epidural steroid injection under fluoroscopic guidance Anesthesia: Local Complications: none Gadolinium-based contrast was utilized due to patient allergy to iodinated contrast media. After informed consent was obtained, the patient was brought to the procedure suite and placed in the prone position. Pulse oximetry and blood pressure were monitored throughout. Low back areas prepped and draped in the usual sterile fashion. Using fluoroscopic guidance, the skin and subcutaneous tissue overlying the needle trajectory were anesthetized with 2% lidocaine. A 17-gauge Touhy needle was inserted and directed by fluoroscopy. Entry into the epidural space was confirmed using the [id number] technique and 2 cc of air. Injection of contrast revealed appropriate spread without vascular uptake, with confirmation of placement in at least 2 fluoroscopic views. 4 mL of normal saline plus 40 mg of methylprednisolone was then injected. The needle was removed and the patient was then transferred to the recovery room in stable condition. The patient tolerated the procedure well. There were no apparent complications. Follow-up: The patient will update us on the response to this procedure, and agrees to continue currently prescribed/recommended therapies. Result Comment: Electronical ly Signed By: Zachariah Fletcher DO\.br\Date and Time Signed: 07/02/24 09:07 EDT MAIN OR INTRAOPERATIVE RECORD Observed: 07/02/2024 9:03 AM Status: F Source: [facility] Main OR Intraoperative Recor d IntraOp Document Type FTPM Summary Primary Physician: Zachariah Fletcher DO Finalized Date/Time: 07/02/24 09:07:16 Pt. Name: MATEO [place] Peyton Messina/Sex: 1945 Female Med Rec #: [id number] Physician: Zachariah Fletcher DO Financial #: [id number] Pt. Type: P Room/Bed: / Admit/Disch: 07/02/24 07:18:15 - Institution: Case Times FTPM Entry 1 Patient Times In Room 07/02/24 09:00:00 Out Room 07/02/24 09:07:00 Procedure Times Start 07/02/24 09:03:00 Stop 07/02/24 09:06:00 Anesthesia Times Last Modified By: Leydi Ferrell RN 07/02/24 09:06:51 Case Attendance FTPM Entry 1 Entry 2 Entry 3 Case Attendee Zachariah Fletcher DO, RN, Leydi Rendon RN, Timothy Hughes Role Performed Surgeon - Primary Health Program Manager - Primary Scrub - Primary Time In 07/02/24 09:00:00 07/02/24 09:00:00 07/02/24 09:00:00 Time Out 07/02/24 09:07:00 07/02/24 09:07:00 07/02/24 09:07:00 Procedure LUMBAR EPIDURAL STEROID LUMBAR EPIDURAL STEROID LUMBAR EPIDURAL STEROID INJECTION(.) INJECTION(.) INJECTION(.) Comments Last Modified By: Ghassan VILLALPANDO, Leydi Ferrell RN, Leydi Myrick RN 07/02/24 09:06:52 07/02/24 09:06:52 07/02/24 09:06:52 Entry 4 Case Attendee Derick Reynolds Role Performed Tribunal Member Time In 07/02/24 09:00:00 Time Out 07/02/24 09:07:00 Procedure LUMBAR EPIDURAL STEROID INJECTION(.) Comments Last Modified By: Leydi Ferrell RN 07/02/24 09:06:52 Perioperative Protocols FTPM Pre-Care Text: Implements protective measures prior to operative or invasive procedure, confirms identity before the operative or invasive procedure, verifies operative procedure, surgical site, and laterality Entry 1 Procedure(s) LUMBAR EPIDURAL STEROID Patient Identity Birthday, ID Band INJECTION(.) Verified (select at Check, Patient least 2): Participation Consents / H and P H&P, Surgery/Procedure Operative Site Present Verified Consent Marking Verified Surgical Site Yes Laterality Verified Yes Verified Procedure Verified Yes Correct Patient Yes Position Verified Availability Equipment, Medication, Prep Dry Yes Verified (If X-ray Applicable) PreOp Antibiotic No Time Out Leydi Ferrell RN, Harvey RN, Chance Perez DO, Bradford A., Derick Reynolds Time Out Complete 07/02/24 09:01:00 Outcomes Met? Yes Last Modified By: Leydi Ferrell RN 07/02/24 09:01:16 Post-Care Text: The patient is free from signs and symptoms of injury caused by extraneous objects Allergy Information FTPM Pre-Care Text: Verifies allergies Entry 1 Allergies Reviewed? Yes Allergies Reviewed Self/Patient With Outcomes Met? Yes Last Modified By: Leydi Ferrell RN 07/02/24 08:56:12 Post-Care Text: The patient received appropriate medication(s) safely administered during the perioperative period Surgical Procedures FTPM Entry 1 Procedure Description Procedure LUMBAR EPIDURAL STEROID Modifiers . INJECTION Surgeon Description L5-S1 CLARITZA Primary Procedure Yes Primary Surgeon Zachariah Fletcher DO Start 07/02/24 09:03:00 Stop 07/02/24 09:06:00 Anesthesia Type None Surgical Service Pain Management Wound Class 1 - Clean Last Modified By: Leydi Ferrell RN 07/02/24 09:06:54 General Case Data FTPM Pre-Care Text: Classifies surgical wound, implements aseptic technique, initiates traffic control Entry 1 Case Information OR Pain Proc Room Case Level Level 2 Wound Class 1 - Clean Specialty Pain Management Preop Diagnosis M54.16 Postop Same As Preop Yes Postop Diagnosis M54.16 Outcomes Met? Yes Last Modified By: Leydi Ferrell RN 07/02/24 09:01:25 Post-Care Text: The patient is free from signs and symptoms of infection Skin Assessment (Pre Procedure) FTPM Pre-Care Text: Implements protective measures to prevent skin/ tissue injury due to thermal or mechanical sources Evaluates for signs and symptoms of physical injury to skin and tissue Entry 1 Skin Integrity Intact, [place], Warm, & Skin Abnormality No Dry Outcomes Met? Yes Last Modified By: Leydi Ferrell RN 07/02/24 08:56:19 Post-Care Text: The patient is free from signs and symptoms of injury caused by extraneous objects Patient Positioning FTPM Pre-Care Text: Identifies physical alterations that require additional precautions for procedure-specific positioning, verifies presence of prosthetics or corrective devices, positions the patient, evaluates the patient for signs and symptoms of injury as a result of positioning Entry 1 Procedure LUMBAR EPIDURAL STEROID Body Position Prone INJECTION(.) Feet Uncrossed? Yes Left Arm Position Resting at Side Right Arm Position Resting at Side Left Leg Position Extended Right Leg Position Extended Positioning Device Pillow Under Head Large, Safety Strap, Pillow Large Under Knees Press Points Checked Yes By Leydi Ferrell RN Outcomes Met? Yes Last Modified By: Leydi Ferrell RN 07/02/24 09:01:35 Post-Care Text: The patient is free from signs and symptoms of injury related to positioning Transport To OR FTPM Pre-Care Text: Transports according to individual needs. Evaluates for signs and symptoms of skin and tissue injury as a result of transfer or transport Entry 1 Via Cart By Leydi Ferrell RN Safety Precautions Safety Strap, Side Outcomes Met? Yes Rails Up Last Modified By: Leydi Ferrell RN 07/02/24 09:01:39 Post-Care Text: The patient is free from signs and symptoms of injury related to transfer/transport Skin Prep FTPM Pre-Care Text: Performs skin preparations Entry 1 Procedure LUMBAR EPIDURAL STEROID Prep Area BLOCK INJECTION SITE INJECTION(.) Prep Agents Chloraprep/Dry Prior to Start Dry Time 07/02/24 09:00:00 Draping Stop Dry Time 07/02/24 09:03:00 Hair Removal Methods Not Indicated By Timothy Rendon RN Outcomes Met? Yes Last Modified By: Leydi Ferrell RN 07/02/24 09:02:01 Post-Care Text: The patient is free from signs and symptoms of infection Departure From OR FTPM Pre-Care Text: Transports according to individual needs. Evaluates for signs and symptoms of skin and tissue injury as a result of transfer or transport. Entry 1 Via Cart Safety Precautions Safety Strap, Side Rails Up PostOp Destination PACU Transported By Leydi Ferrell RN Patient Status Stable Report Given Nadja Corcoran RN To/Hand Off Communication Skin. Condition Dry, Intact Airway Maintenance Oxygen in Use? No Outcomes Met? Yes Last Modified By: Ledyi Ferrell RN 07/02/24 09:02:45 Post-Care Text: The patient is free from signs and symptoms of injury related to transfer/transport Dressing/Packing FTPM Pre-Care Text: Administers care to wound sites Entry 1 Type Dressing Site and Details 4x4 and opsite applied to site Outcomes Met? Yes Last Modified By: Leydi Ferrell RN 07/02/24 09:03:05 Post-Care Text: The patient is free from signs and symptoms of infection Medication Administration FTPM Pre-Care Text: Verifies allergies, administers prescribed medications and solutions, administers prescribed antibiotic therapy and immunizing agents as ordered, evaluates response to medications Administers prescribed medications and solutions Entry 1 Route of Admin Block Expiration Date Yes Verified Ordered By Zachariah Fletcher DO Transcribed/To Leydi Ferrell RN Field By Administered By Zachariah Fletcher DO Outcomes Met? Yes Last Modified By: Leydi Ferrell RN 07/02/24 09:03:14 Post-Care Text: The patient received appropriate medication(s) safely administered during the perioperative period X-Rays & Images FTPM Pre-Care Text: Assess history of previous radiation exposure and implements protective measures Entry 1 X-Ray Type C-Arm Contrast Used? No Outcomes Met? Yes Last Modified By: Leydi Ferrell RN 07/02/24 09:03:34 Post-Care Text: The patient is free from signs and symptoms of radiation injury General Comments: vueway used d/t contrast allergy Case Comments <None> Finalized By: Leydi Ferrell RN Document Signatures Signed By: Leydi Ferrell RN 07/02/24 09:07 MAIN OR PREOPERATIVE RECORD Observed: 8:30 AM Status: F Source: [facility] Main OR Preoperative Record Holding Area Document Type FTPM Summary Primary Physician: Zachariah Fletcher DO Finalized Date/Time: 07/02/24 07:52:17 Pt. Name: MATEO [place] /Sex: 1945 Female Med Rec #: [id number] Physician: Zachariah Fletcher DO Financial #: [id number] Pt. Type: P Room/Bed: / Admit/Disch: 07/02/24 07:18:15 - Institution: Case Times Holding FTPM Pre-Care Text: Verifies consent for planned procedure, identifies individual values and wishes concerning care, includes family members in perioperative teaching Secures patient's records' belongings, and valuables, maintains patient's dignity and privacy, and maintains patient confidentiality Entry 1 In Holding 07/02/24 07:46:00 Outcomes Met? Yes Last Modified By: Kathy Polo RN 07/02/24 07:46:24 Post-Care Text: The patient participates in decisions affecting his or her perioperative plan of care The patient's right to privacy is maintained Surgery Checklist FTPM Entry 1 Patient Birthday, ID Band Procedure History and Physical, Identification: Check, Patient Verification: Surgical Consent, With Participation Patient NPO after Midnight: No Personal Items: Cataract Lens Implant, Glasses Personal Items glasses, 2 rings, b/l Limitations: 12/20 Comment: cataract Complaints of Pain: Yes Pain Comment: Low back, right leg Operative Site Yes Marked By: Marking: Location: L5/S1 Availability Equipment, X-Ray Verified: Does Patient Smoke No Patient states Yes Comment - Adult [place]-daughter postop adult Supervision supervision available Case Cancelled in No Holding Area see comments below for reason Last Modified By: Kathy Polo RN 07/02/24 07:52:09 General Comments: heather Finalized By: Kathy Polo RN Document Signatures Signed By: Kathy Polo RN 07/02/24 07:52 CONSULTATION NOTE Observed: 06/24/2024 1:35 PM Status: F Source: [facility] Consultation Note Patient: MATEO [place] Age: 79 years Sex: Female : 1945 Associated Diagnoses: None Author: Marilu Cornell PA-C Subjective Chief complaint 06/24/2024 12:59 EDT Right buttock pain radiating down to the foot . Patient is 79-year-old female with a past medical history significant for lumbar stenosis and lumbar neuritis following up today after undergoing a repeat right sided L4-5 and L5-S1 transforaminal epidural steroid injection. This was done on 06/03/2024 and gave her significant relief for 1 to 2 days but unfortunate, did not last any more time than that. Patient's daughter states she got 80 to 90% relief during that day or 2.4 to, the right radiating leg pain has since returned and is a 9/10. In fact, she states that her pain is so intense she can barely manage. She is using the gabapentin 600 mg 3 times a day recently increased to this by our services, Percocet given by her PCP and ibuprofen. Unfortunate, she states that she cannot continue to live with this pain but she does not want to have surgery. She cannot walk, stand, be upright or active without severe pain. She wonders if she has any other options. She has done therapy in the past that did not help. Health Status Allergies: Allergic Reactions (Selected) Severe [...] EA, 0, Expires in 5 years, Supply [facility] Prescription: [facility] Prescription, See Instructions, 1 EA, 0, Wheelchair, Supply acetaminophen-oxycodone 325 mg-5 mg Tab: 1 tab(s), Oral, BID, 60 tab(s), Refill(s) 0, 30 day supply M54.2, [facility]/pharmacy #[id number], 165, cm, 06/03/24 9:48:00 EDT, Height/Length Dosing, 83, kg, 05/17/24 9:33:00 EST, Weight Dosing amLODIPine 5 mg Tab: See Instructions, TAKE 1 TABLET BY MOUTH EVERY DAY, # 90 tab(s), Refills(s) 4, Pharmacy: [facility] STORE [id number], 168, cm, 04/09/24 9:05:00 EST, Height/Length Dosing, 83.2, kg, 04/09/24 9:05:00 EST, Weight Dosing cyclobenzaprine 5 mg Tab: 5 mg = 1 tab(s), Oral, Bedtime, # 30 tab(s), Refills(s) 12, [id number], 168, cm, 08/22/23 8:56:00 EDT, Height/Length Dosing, 85.5, kg, 08/22/23 8:55:00 EDT, Weight Dosing gabapentin 300 mg Cap: 900 mg = 3 cap(s), Oral, TID, X 30 day(s), # 270 cap(s), Refills(s) 1, [id number], 160, cm, 06/24/24 13:14:00 EDT, Height/Length Dosing, 85, kg, 06/24/24 13:14:00 EDT, Weight Dosing hydrochlorothiazide-triamterene 25 mg-37.5 mg Tab: See Instructions, 90 tab(s), Refill(s) 4, TAKE 1 TABLET BY MOUTH EVERY DAY, [facility] ST[id number], 168, cm, 04/09/24 9:05:00 EST, Height/Length Dosing, 83.2, kg, 04/09/24 9:05:00 EST, Weight Dosing nebulizer supplies: nebulizer supplies, See Instructions, 1 EA, 11, nebulizer supplies dx J44.9, [facility], Supply, 158, cm, 12/27/19 11:56:00 EDT, Height/Length Dosing, 88.6, kg, 12/27/19 11:56:00 EDT, Weight Dosing omeprazole 20 mg Cap-DR: See Instructions, TAKE 1 CAPSULE BY MOUTH EVERY DAY, # 90 cap(s), Refills(s) 4, Pharmacy: [facility] ST[id number], 165, cm, 06/03/24 9:48:00 EDT, Height/Length Dosing, 83, kg, 05/17/24 9:33:00 EST, Weight Dosing predniSONE 20 mg Tab: 40 mg = 2 tab(s), Oral, Daily, X 5 day(s), # 10 tab(s), Refills(s) 0, Pharmacy: [facility]/pharmacy #[id number], 165, cm, 06/03/24 9:48:00 EDT, Height/Length Dosing, 83, kg, 05/17/24 9:33:00 EST, Weight Dosing Documented Medications Documented Dulcolax Tab-EC: 2-3 tabs, Oral, Daily, adjusts for constipation concerns, Refills(s) 0 Tylenol: 500 mg, Oral, q6hr, Refills(s) 0 ibuprofen: 800 mg, Oral, Refills(s) 0 Problem list: All Problems Tobacco use, continuous / SNOMED CT 0075323492 / Confirmed Diaphragm paralysis / SNOMED CT 403308998 / Confirmed 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 / Confirmed Tremor / SNOMED CT 96980166 / Confirmed DDD (degenerative disc disease), cervical / SNOMED CT 330956074 / Confirmed Bilateral hearing loss / SNOMED CT 292950839 / Confirmed GERD (gastroesophageal reflux disease) / SNOMED CT 203474309 / Confirmed HTN (hypertension) / SNOMED CT 4217934111 / Confirmed Emphysema/COPD / SNOMED CT 7920143 / Confirmed History of stroke / SNOMED CT 0191249770 / Confirmed Former smoker / SNOMED CT 33254729 / Confirmed Other urethral stricture, female / SNOMED CT 296279660 / Confirmed Mixed incontinence / SNOMED CT 65334423 / Confirmed Wears hearing aid in both ears / SNOMED CT 331858905 / Confirmed Generalized osteoarthritis / SNOMED CT 568287207 / Confirmed 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 / SNOMED CT 0658284196 / Confirmed Irritable bowel syndrome with predominant constipation / SNOMED CT 4456104599 / Confirmed Lumbar radiculopathy, right / SNOMED CT 076713802 / Confirmed Patient has healthcare proxy and living will / SNOMED CT 2702426021 / Confirmed OAB (overactive bladder) / SNOMED CT 5045042292 / Confirmed Incontinence without sensory awareness / SNOMED CT 3668157727 / Confirmed Edema / SNOMED CT 959775236 / Confirmed Peripheral neuropathy / SNOMED CT 378032473 / Confirmed Dependent for transportation / SNOMED CT 157297371 / Confirmed Thoracic aorta atherosclerosis / SNOMED CT 831711172 / Confirmed Enrolled in chronic care management / SNOMED CT 514062353 / Confirmed Obesity due to excess calories / SNOMED CT 7936687519 / Confirmed Elevated diaphragm / SNOMED CT 794809653 / Confirmed Pain of right sacroiliac joint / SNOMED CT 623053624 / Confirmed RLS (restless legs syndrome) / SNOMED CT 82390002 / Confirmed Somatic dysfunction of cervical region / SNOMED CT 4723519195 / Confirmed Somatic dysfunction of thoracic region / SNOMED CT 1269221192 / Confirmed Somatic dysfunction of lumbar region / SNOMED CT 7809836591 / Confirmed Somatic dysfunction of sacral spine / SNOMED CT 7095445537 / Confirmed Somatic dysfunction of lower extremities / SNOMED CT 2474766804 / Confirmed Somatic dysfunction of rib cage region / SNOMED CT 5741128558 / Confirmed Somatic dysfunction of abdominal region / SNOMED CT 0284058793 / Confirmed Severe obstructive sleep apnea / SNOMED CT 692174583 / Confirmed Insomnia / SNOMED CT 142112131 / Confirmed S/P knee replacement / SNOMED CT 176090718 / Confirmed Mild cognitive impairment / SNOMED CT 0412458375 / Confirmed noted in 04/24/2023 Neurology Consult Note page 1. added per OP CDI policy. Stage 3a chronic kidney disease (CKD) / SNOMED CT 4763672533 / Confirmed added per 06/26/2023 query response. Major depressive disorder, recurrent, mild / SNOMED CT 359258000 / Confirmed added per 06/26/2023 query response. Chronic respiratory failure with hypoxia / SNOMED CT 9135752071 / Confirmed added per 06/26/2023 query response. 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 Chronic constipation / SNOMED CT 201523185 / Confirmed Chronic low back pain / SNOMED CT 350746387 / Confirmed Spasm of lumbar paraspinous muscle / SNOMED CT 2950883487 / Confirmed Abdominal weakness / SNOMED CT 072850949 / Confirmed Stooped posture / SNOMED CT 41765456 / Confirmed Shoulder pain / SNOMED CT 59535993 / Confirmed Frozen shoulder / SNOMED CT 8286314371 / Confirmed Resolved: Stroke / SNOMED CT 463160956 left arm is weaker then right Resolved: Cervical radiculopathy / SNOMED CT 735943354 Resolved: Leg edema / SNOMED CT 287908294 Resolved: Urinary urgency / SNOMED CT 514854756 Resolved: History of UTI / SNOMED CT 7259870629 Resolved: Frequent urination / SNOMED CT 843554120 Resolved: WINTERS (dyspnea on exertion) / SNOMED CT 912914909 Resolved: Rib pain on right side / SNOMED CT 039826432 Resolved: Dizziness / SNOMED CT 0081413100 Resolved: Exposure to second hand smoke / SNOMED CT 69656227 Resolved: Bronchitis with bronchospasm / SNOMED CT 93779627 Resolved: Pain in back / SNOMED CT 224528462 Resolved: Hernia of abdominal wall / SNOMED CT 094215090 Resolved: Abdominal pain, generalized / SNOMED CT 151541023 Resolved: 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 / SNOMED CT 9167439056 Resolved: Right hip pain / SNOMED CT 99438507 Resolved: Body mass index (BMI) of 31.0-31.9 in adult / SNOMED CT 034074325 Resolved: Screening mammogram, encounter for / SNOMED CT 285421364 Resolved: Abnormal urinalysis / SNOMED CT 5935723992 Resolved: Chest pain / SNOMED CT 80445471 Canceled: GERD (gastroesophageal reflux disease) / SNOMED CT 5557080217 Canceled: HTN (hypertension) / SNOMED CT 9237937749 Canceled: Restless leg syndrome / SNOMED CT 9565909596 Canceled: At risk for falls / SNOMED CT 238021238 Problem added when Risk for Falls Careplan was initiated. Resolved due to patient discharge. Canceled: At risk for impaired skin integrity / SNOMED CT 512695431 Problem added based on documenting Adilson score less than or equal to 18, rash, or malnutrition. Resolved due to patient discharge. Canceled: Constipation / SNOMED CT 034287038 Canceled: Atypical chest pain / SNOMED CT 953967240 Canceled: Depression / SNOMED CT 99822588 Canceled: Restless leg syndrome / IMO 32051 Canceled: COPD exacerbation / SNOMED CT 538962717 Canceled: Urge incontinence / SNOMED CT 024288018 Canceled: Microscopic hematuria / SNOMED CT 743502830 Canceled: Other post-traumatic urethral stricture, female / SNOMED CT 579814770 Canceled: Flaccid bladder / SNOMED CT 4909841222 Canceled: Nocturia / SNOMED CT 384659720 Canceled: Chronic kidney disease / SNOMED CT 0502650460 Canceled: Other problems related to lifestyle / SNOMED CT 536142020 Canceled: Flank pain / SNOMED CT 711552103 Canceled: Overactive bladder due to prolapse of female genital organ / SNOMED CT 3444523785 Canceled: BMI 30.0-30.9,adult / SNOMED CT 694447545 Canceled: Stress incontinence / SNOMED CT 185748956 Canceled: Overactive bladder / SNOMED CT 2689401271 Canceled: Class 1 obesity due to excess calories in adult / SNOMED CT 5345844184 Canceled: Body mass index 32.0-32.9, adult / SNOMED CT 399364712 Canceled: Frequency of urination / SNOMED CT 426812078 Canceled: Urgency of urination / SNOMED CT 526418676 Canceled: Hypertension with heart disease / SNOMED CT 1526009035 Canceled: Hypertensive heart disease / SNOMED CT 814713952 Canceled: Community acquired pneumonia / SNOMED CT 5081904115 Canceled: Abdominal pain, RLQ / SNOMED CT 118468124 Canceled: Spigelian hernia / SNOMED CT 475173790 Canceled: Severe obesity (BMI 35.0-35.9 with comorbidity) / SNOMED CT 7357316192 Canceled: BMI 32.0-32.9,adult / SNOMED CT 612246633 Canceled: BMI 35.0-35.9,adult / SNOMED CT 717649831 Canceled: Dietary counseling / SNOMED CT 596941581 Canceled: Urgency of urination / SNOMED CT 976017855 Canceled: ESBL E. coli carrier / SNOMED CT 8652288892 ESBL E coli in urine 11/08/2020 Possible ESBL + urine 03/20/2021. Escherichia coli Canceled: Leg pain, left / SNOMED CT 1416600917 Canceled: Pain in thoracic spine / SNOMED CT 933058265 Canceled: Viral URI / SNOMED CT 303587277 Canceled: Body mass index 34.0-34.9, adult / SNOMED CT 466723553 Canceled: COPD with acute exacerbation / SNOMED CT 522980020 Canceled: BMI 31.0-31.9,adult / SNOMED CT 191370176 Canceled: COPD with chronic bronchitis / SNOMED CT 900925924 Canceled: Oral thrush / SNOMED CT 625772021 Canceled: Somatic dysfunction of occipitocervical region / SNOMED CT 6990440952 Canceled: Mild recurrent major depression / SNOMED CT 426962095 Canceled: Adjustment reaction / SNOMED CT 29832186 Canceled: Acute low back pain with sciatica / SNOMED CT 143213853 Canceled: Memory loss / SNOMED CT 54467935 noted in 04/24/2023 Neurology Consult Note page 1. added per OP CDI policy. Canceled: Anxiety with depression / SNOMED CT 614820638 noted in 04/24/2023 Neurology Consult Note page 1. added per OP CDI policy. Canceled: UTI (urinary tract infection) / SNOMED CT [id number] Objective Vital Signs 06/24/2024 12:59 EDT Peripheral Pulse Rate 88 bpm Respiratory Rate 16 br/min Systolic Blood Pressure 137 mmHg Diastolic Blood Pressure 73 mmHg Mean Arterial Pressure, Cuff 94 mmHg General: Alert and oriented, No acute distress. Eye: Normal conjunctiva. HENT: Normocephalic, Normal hearing. Cardiovascular: No edema. Musculoskeletal Normal range of motion. Normal strength. 5/5 lower extremity ring other than right hip flexion, ADF and EHL 4/5 with positive right straight leg raise Integumentary: Warm, Dry, [place]. Neurologic: Alert, Oriented. Psychiatric: Cooperative, Appropriate mood & affect. 14 point review of systems was negative unless otherwise noted. Results Review * Final Report * Reason For Exam M54.16 POWERSCRIBE REPORT IMPRESSION: DEGENERATIVE CHANGES OF THE LUMBAR SPINE DETAILED. EXAM: MRI of the lumbar spine without contrast History: Low back pain and right hip pain. Technique: Multiplanar multisequence MRI of the lumbar spine was obtained without intravenous contrast. Comparison: Lumbar spine radiographs 07/07/2022 Findings: Localizer images demonstrate cervical spine degenerative changes that are incompletely evaluated on this examination. The conus medullaris ends normally. Levocurvature centered at the thoracolumbar junction. The vertebral body heights are well maintained. There is no aggressive bone marrow signal abnormality. Disc desiccation throughout the lumbar spine. Moderate intervertebral disc height loss at L1-L2 and mild intervertebral disc height loss at L3-L4, L4-L5, and L5- S1. L1-L2: 3 mm of retrolisthesis of L1 on L2. Small disc bulge. Mild facet arthropathy. No neuroforaminal or spinal canal stenosis. L2-L3: Small disc bulge. Mild facet arthropathy. Mild left neuroforaminal stenosis. No spinal canal stenosis. L3-L4: Small disc bulge. Moderate facet arthropathy. Ligamentum flavum thickening. Mild spinal canal stenosis. No neuroforaminal stenosis. L4-L5: Anterolisthesis of L4 on L5 of approximately 4 mm secondary to advanced facet arthropathy. Small disc bulge with superimposed central disc protrusion. Severe spinal canal stenosis. No neuroforaminal stenosis. L5-S1: Minimal anterolisthesis of L5 on S1. Small disc bulge. Moderate facet arthropathy. Mild right neuroforaminal stenosis. No spinal canal stenosis. Visualized paravertebral soft tissues appear within normal limits as visualized. A 12 mm hyperintense T2 structure of the left kidney is most likely a cyst. Ordering Provider: Marilu Cornell Signature Line FINAL REPORT Dictated: 07/15/2022 1:29 pm Dakotah Amado DO Signed (Electronic Signature): 07/15/2022 1:29 pm Signed by: Dakotah Amado DO Transcribed by: CAROLYN Technologist: DANNA Technical Comments None RAD REPORT This document has an image Result type: MRI Spine Lumbar w/o Contrast Result date: July 13, 2022 18:50 EDT Result status: Auth (Verified) Result title: MRI Spine Lumbar w/o Contrast Performed by: Dakotah Amado DO on July 15, 2022 13:29 EDT Verified by: Dakotah Amado DO on July 15, 2022 13:29 EDT Encounter info: [id number], Celio Flor, Outpatient, 07/13/2022 - 07/13/2022 Impression and Plan Patient is a 79-year-old female with past medical history significant for lumbar stenosis and lumbar neuritis following up after undergoing a right sided L4-5 and L5-S1 transforaminal epidurals injection that gave her very significant but short-lived relief. Only lasted for a day or 2. We reviewed her MRI. We discussed different options. She does not want to have anything that would require her to be under anesthesia. She does not even really want to be under moderate sedation???MAC anesthesia. She states that after a colonoscopy she had intense jaw pain and she states that she was told it was because they had to prop her up because she stopped breathing so she is very worried about any sort of sedation. We reviewed her imaging. Based on her imaging finds, her failure to improve with conservative treatments and the significant radicular symptoms she is still experiencing I recommended an L5-S1 epidural steroid injection to be done under fluoroscopy for both diagnostic and therapeutic purposes. Procedure was discussed. Risks and benefits were discussed. Also recommended increasing her gabapentin to 900 mg 3 times a day. OARRS was reviewed. Prescription sent. Follow-up 2 weeks after the injection for reevaluation. Call clinic sooner if necessary. LILI score: 58%. As part of providing excellent, safe, comprehensive care, the following was completed at our patient's visit: Reviewed patient's medication reconciliation. Reviewed screening for depression, screening for tobacco use, and patient's Oswestry disability index results. For concerning screenings had a discussion with the patient, provided patient education, and recommended follow-up with primary care provider when appropriate. Patient noted with risk of falling received education on strength, gait, and balance training to prevent future risk of falling. Result Comment: Electronical ly Signed By: Marilu Cornell PA-C\.br\Date and Time Signed: 06/24/24 13:38 EDT POPULATION HEALTH Observed: 06/05/2024 3:17 PM Status: F Source: [facility] Case Information Case Priority: None Programs: -- Referral Source: Mine Engineer Referral Reason: Disease management Case Type: Chronic Care Management Risk Score: -- Case Status: Active (January 03, 2019) Date Assigned: December 19, 2018 Assigned By: Brice Stephenson RN Date Enrolled: January 03, 2019 Assigned Primary Personnel: Abraham VILLALPANDO, Dereck Perez Assigned Secondary Personnel: Mecca VILLALPANDO, Linda Galvin Case Physician: Dakotah Gallardo DO Problems Ongoing 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 Incontinence without sensory awareness Insomnia Irritable bowel syndrome with predominant constipation Lumbar radiculopathy, right Major depressive disorder, recurrent, mild Mild cognitive impairment Mixed incontinence OAB (overactive bladder) Obesity due to excess calories Other urethral stricture, female Pain of right sacroiliac joint Patient has healthcare proxy and living will Peripheral neuropathy RLS (restless legs syndrome) S/P knee replacement Severe obstructive sleep apnea Shoulder pain Somatic dysfunction of abdominal region Somatic dysfunction of cervical region Somatic dysfunction of lower extremities Somatic dysfunction of lumbar region Somatic dysfunction of rib cage region Somatic dysfunction of sacral spine Somatic dysfunction of thoracic region Spasm of lumbar paraspinous muscle Stage 3a chronic kidney disease (CKD) Stooped posture Thoracic aorta atherosclerosis Tremor Wears hearing aid in both ears Historical Abdominal pain, generalized Abnormal urinalysis Body mass index (BMI) of 31.0-31.9 in adult Bronchitis with bronchospasm Cervical radiculopathy Chest pain Dizziness WINTERS (dyspnea on exertion) Exposure to second hand smoke Frequent urination Hernia of abdominal wall History of UTI Leg edema Pain in back 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 Rib pain on right side Right hip pain Screening mammogram, encounter for Urinary urgency Procedure/Surgical History Injection (01/15/2024), Injection of nerve root of lumbar spine using fluoroscopic guidance (12/21/2023), Injection of nerve root of sacral spine [...] callus, mole removal, Tubal ligation. Home Medications acetaminophen-oxycodone 325 mg-5 mg Tab, 1 tab(s), Oral, BID amLODIPine 5 mg Tab, See Instructions cyclobenzaprine 5 mg Tab, 5 mg= 1 tab(s), Oral, Bedtime, 12 refills Dulcolax Tab-EC, 2-3 tabs, Oral, Daily gabapentin 300 mg Cap, 300 mg= 1 cap(s), Oral, TID, 11 refills Handicap Placard, See Instructions hydrochlorothiazide-triamterene 25 mg-37.5 mg Tab, See Instructions ibuprofen, 800 mg, Oral Misc DME Prescription, See Instructions nebulizer supplies, See Instructions, 11 refills omeprazole 20 mg Cap-DR, 20 mg= 1 cap(s), Oral, Daily, 4 refills Tylenol, 500 mg, Oral, q6hr Allergies Chocolate (Anaphylaxis) Adhesive Bandage (Itching, Rash) [...] Previous treatment: None. Household tobacco concerns: No., 01/09/2024 Family History Alcoholism: Father. Metastatic cancer: Mother. Parkinson disease: Father. Parkinson's disease: Father. Primary malignant neoplasm of colon: Mother. Screenings and Assessments 01/03/19 12:08:00 Result Name Value Comment Phone Call Monitoring Consent Agreed to continue call Phone Verification Patient Information Full name, street address and date of verified CM Program Enrollment Written consent completed 01/03/19 12:00:00 Result Name Value Comment HIPPA Verified Type of Contact In person in the office Information Given by Patient CM Preferred Spoken Language Comoran CM Preferred Written Language Swiss Preferred Communication Mode Verbal Ability to Read/Write Able to read, Able to write Preferred Method of Contact Cell Best Time to Visit or Contact 10-1 pm, 1-5 pm Best Day to Visit or Contact No preference Preferred Way to Send PHI Standard mail Lives In Single level home Number in Household 3 Lives with handicapped brother and daughter. 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 Start Date: 2018 Target: - - Status: - - Barriers: - - Comments: - - Intervention Frequency Status Credit Or Loans Officer Use inhaler as prescribed by PCP - - Done - - Start Water aerobic exercises beginning 01/08/19 2 days per week to include water walking - - Done - - Use nebulizer machine as needed for SOB for COPD. - - Progressing - - 10/12/21 Fill Rx for Rescue pack and call CN if starts medications - - Done - - Goal: Will have improvement in lower leg swelling Start Date: 2020 Target: - - Status: - - Barriers: - - Comments: - - Intervention Frequency Status Credit Or Loans Officer Decrease sodium intake to 2000 mg daily, do not use salt shaker. - - Progressing - - Weigh daily, record and notify CN of 3# weight gain in day or %3 over a week. - - Not done - - Keep appointment with Dr. Sifuentes on 10/13/20 at 0920 - - Done - - 06/08/21 Patient is going to try to return to water aerobics once per week, - - Not done - - Keep legs elevated when sitting - - Progressing - - Goal: Reduce frequency of Urinary Tract infections Start Date: 2021 Target: - - Status: - - Barriers: - - Comments: - - Intervention Frequency Status Credit Or Loans Officer Call office at first signs and symptoms of UTI for urinalysis. - - Progressing - - Drink 64 oz of fluids each day to stay hydrated. - - Progressing - - Go to restroom at first sign of urinary urge and not hold. - - Progressing - - See urologist as needed. - - Progressing - - Botox injections for urinary incontinence every 6 months as needed. 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 Start Date: 2018 Target: - - Status: Met Barriers: - - Comments: - - Intervention Frequency Status Credit Or Loans Officer Start water therapy on January 08 and attend every Monday and each week - - Done - - Patient to call Chiropractor to have diapraghm put back in place as needed. - - Progressing - - Goal: Will have relief from constipation Start Date: 2019 Target: - - Status: Met Barriers: - - Comments: - - Intervention Frequency Status Credit Or Loans Officer Take OTC MiraLax 17 gm 1.5 caps BID - - Done - - Follow up with Title Supervisor as needed. - - Done - - Take Trulance 3 mg daily for constipation - - Done - - Right hernia repari surgery scheduled for 09/07/20. - - Done - - Take Ducolax 2 tab a bedtime as directed - - Done - - Progress Note 05/20/2024 13 minutes CCM Update for May 2024. Call started at 1353. I received a call from patient's daughter Geneva. She reports that her mother is having a lot of pain to her right buttocks down to her toes. She is currently prescribed Percocet 325mg-5mg - 1 tab bid. The patient's daughter reports that she is taking 1/2 a tab every 3-4 hours and is also taking Tylenol and ibuprofen in between. She is not sure if this is really giving her mother much relief. I also did tell her she needs to be mindful of the amount of Tylenol her mother is taking because it is also in the Percocet; she verbalized understanding. I also let her know the prescription refill was sent to [facility] on 05/16/2024; she verbalized understanding. She was seen in pain management on 05/17/2024.I did call pain management to see how long it would be before she will be getting treatments for pain. They are waiting for her to return their call to set up appointment. I called Geneva her daughter back and let her know pain management did call them and left a message to schedule her treatment; she verbalized understanding. She is wondering if there is anything more that can be done and also there is something more we can tell her about how she is taking her pain medication. I did ask if she gets longer or more relief if she takes one versus 1/2 her daughter was not sure. Her mother did have some constipation but took milk of magnesia which helped. Patient wants to continue monthly [facility] call. CN will call patient in June 2024 for updates. Patient will keep scheduled appointments, take medication as prescribed and keep pain diary as instructed. Call ended at 1406. 05/24/2024 3 minutes Call started at 1445. Called to check on to see how patient was doing with pain. Spoke to her daughter Geneva. She reports that her mother is still having pain. She has convinced her to at least take a whole prescription pain medication (Percocet) at night ??? she is able to sleep all night with no problem. She does still take ??? tab (Percocet) at a time during the day because she feels like she will sleep all day. She is taking up to 4 ibuprofen between her the ??? doses of Percocet. Geneva going to try and contact the pain clinic to see if the procedure can be moved up to an earlier date. Patient has no needs or concerns. Call ended at 1448 06/05/2024 4 minutes Call started at 1451. Called to see how patient is doing since have procedure with pain management. Spoke to her daughter Geneva. She reports that the first day after was great; her back as just a little irritated from the procedure. Today her back is hurting, rating it at a 10/10. She did contact pain management, and she was told the lidocaine that was used has probably worn office. She said she was told it will probably take about a week until for her to see results. Patient has no needs or concerns. Call ended at 1455. Communication Events Date: June 05, 2024 Method: Phone call Type: Outbound Duration (min): 4 Outcome: Case discussion Contact Type: Patient emergency contact Contact Name: Geneva - daughter Notes: called to see how she was progressing since procedure with pain management - see case summary note Created By: Linda Wing RN Date: May 24, 2024 Method: Phone call Type: Outbound Duration (min): 3 Outcome: Case discussion Contact Type: Patient Contact Name: MATEO [place] Notes: called to check in on patient's pain. see case summary note Created By: Linda Wing RN Date: May 21, 2024 Method: Phone call Type: Inbound Duration (min): 13 Outcome: Case discussion Contact Type: Patient emergency contact Contact Name: Geneva Lama daughter Notes: [facility] Update - May 2024 - see case summary note Created By: Linda Wing RN Date: May 10, 2024 Method: Phone call Type: Outbound Duration (min): 23 Outcome: Case discussion Contact Type: Patient Contact Name: MATEO [place] Notes: [facility] Update for April 2024 - see case summary note Created By: Linda Wing RN Date: April 08, 2024 Method: Phone call Type: Outbound Duration (min): 14 Outcome: Case discussion Contact Type: Patient Contact Name: MATEO [place] Notes: [facility] Update for March 2024 -see case summary note Created By: Linda Wing RN Date: February 23, 2024 Method: Phone call Type: Outbound Duration (min): 1 Outcome: Left message-voicemail Contact Type: Patient Contact Name: MATEO [place] Notes: [facility] Update for February 2024 - no answer - left message along with cn contact info Created By: Linda Wing RN Date: February 06, 2024 Method: Phone call Type: Outbound Duration (min): 1 Outcome: Left message-voicemail Contact Type: Patient Contact Name: MATEO [place] Notes: [facility] update - january 2024 attempted to call patient for monthly follow up - no answer - left message along with cn contact info Created By: Linda Wing RN Date: January 11, 2024 Method: Phone call Type: Outbound Duration (min): 1 Outcome: Left message-voicemail Contact Type: Patient Contact Name: MATEO [place] Notes: [facility] Update - Called patient for December 2023 update - no answer - left message along with cn contact info Created By: Linda Wing RN Date: November 24, 2023 Method: In-person Type: -- Duration (min): 37 Outcome: Case discussion Contact Type: Patient Contact Name: MATEO [place] Notes: [facility] November 2023 update - see case summary note Created By: Linda Wing RN Date: November 23, 2023 Method: Phone call Type: Outbound Duration (min): 1 Outcome: Case discussion Contact Type: Patient emergency contact Contact Name: Geneva - daughter Notes: [facility] Nov 2023 - spoke to daughter - they have appt tomorrow 11/24/2023 and they will speak to me then Created By: Linda Wing RN Date: October 24, 2023 Method: Phone call Type: Outbound Duration (min): 1 Outcome: Left message-voicemail Contact Type: Patient emergency contact Contact Name: [place] Notes: [facility] [place] - called for monthly follow up call - left message along with cn contact information Created By: Linda Wing RN Date: June 09, 2023 Method: Phone call Type: Outbound Duration (min): 7 Outcome: Case discussion Contact Type: academic affairs coordinator Contact Name: Dereck Rosario RN Notes: Called for [facility]. See case summary note. Created By: Dereck Rosario RN Date: April 28, 2023 Method: Phone call Type: Outbound Duration (min): 3 Outcome: Case discussion Contact Type: academic affairs coordinator Contact Name: Dereck Rosario RN Notes: Called for Feb CCM. See case summary note. Created By: Dereck Rosario RN Date: April 05, 2023 Method: Phone call Type: Outbound Duration (min): 15 Outcome: Case discussion Contact Type: academic affairs coordinator Contact Name: Dereck Rosario RN Notes: Called for Peña CCM. See case summary note. Created By: Dereck Rosario RN Date: March 08, 2023 Method: Phone call Type: Outbound Duration (min): 20 Outcome: Case discussion Contact Type: academic affairs coordinator Contact Name: Dereck Rosario RN Notes: Called for Dec CCM. See case summary note. Created By: Dereck Rosario RN Date: March 08, 2023 Method: Phone call Type: Outbound Duration (min): 1 Outcome: Left message-voicemail Contact Type: academic affairs coordinator Contact Name: Dereck Rosario RN Notes: Called for Dec CCM. Left message asking for return phone call. Created By: Dereck Rosario RN Date: January 13, 2023 Method: Phone call Type: Inbound Duration (min): 10 Outcome: Case discussion Contact Type: Patient Contact Name: M[place]O [place] Notes: CCM patient called, see FT summary note. Created By: Aminata Mendieta RN Date: January 12, 2023 Method: Phone call Type: Outbound Duration (min): 10 Outcome: Case discussion Contact Type: Complex daycare managerproject manager finance Name: Aminata Mendieta RN Notes: Called patient for CCM follow-up, spoke with daughter see FT summary note. Created By: Aminata Mendieta RN Date: November 23, 2022 Method: Phone call Type: Outbound Duration (min): 1 Outcome: Left message-voicemail Contact Type: Complex daycare managerproject manager finance Name: Aminata Mendieta RN Notes: Attempted to call daughter cell phone for CCM follow-up, no answer, left message asking for a return call. Created By: Aminata Mendieta RN Date: November 23, 2022 Method: Phone call Type: Outbound Duration (min): 1 Outcome: Left message-voicemail Contact Type: Complex daycare managerproject manager finance Name: Aminata Mendieta RN Notes: Attempted to call patient for CCM, no answer left message asking for a return call. Created By: Aminata Mendieta RN Date: August 31, 2022 Method: Phone call Type: Outbound Duration (min): 17 Outcome: Case discussion Contact Type: Pharmacist Contact Name: Alejo PatNelli Notes: Medication review with pharmacy. See SOAP note. Created By: Aminata Mendieta RN Date: August 23, 2022 Method: Phone call Type: Outbound Duration (min): 7 Outcome: Case discussion Contact Type: Medical facility Contact Name: Aminata Irena Notes: spoke with Iris from Patient expereince, please see FT summary note. Created By: Aminata Mendieta RN Date: August 23, 2022 Method: Phone call Type: Outbound Duration (min): 16 Outcome: Case discussion Contact Type: Complex daycare managerproject manager finance Name: Aminata Mendieta RN Notes: Daughter left 2 messages while CCN on vacation, returned call see FT summary note. Created By: Aminata Mendieta RN Date: August 01, 2022 Method: Phone call Type: Inbound Duration (min): 7 Outcome: Case discussion Contact Type: Patient advocate Contact Name: [place] Notes: Daughterr called with updates. See FT summary note. Created By: Aminata Mendieta RN Date: July 21, 2022 Method: Phone call Type: Outbound Duration (min): 15 Outcome: Case discussion Contact Type: Complex daycare managerproject manager finance Name: Aminata Mendieta RN Notes: See FT summary note. Created By: Aminata Mendieta RN Date: July 15, 2022 Method: Phone call Type: Outbound Duration (min): 1 Outcome: Left message-voicemail Contact Type: Complex daycare managerproject manager finance Name: Aminata Mendieta RN Notes: Daughter left message at 1030 asking for a return call, called daughter, no answer, left message to call again. Patient was seen by Dr. Hernandez today in [facility]. Created By: Aminata Mendieta RN Date: June 22, 2022 Method: Phone call Type: Outbound Duration (min): 20 Outcome: Case discussion Contact Type: Complex daycare managerproject manager finance Name: Aminata Mendieta RN Notes: Daughter left message asking for a return call, called patient, spoke with daughter see FT summary note. Created By: Aminata Mendieta RN Date: May 25, 2022 Method: Phone call Type: Inbound Duration (min): 1 Outcome: Case discussion Contact Type: Patient Contact Name: M[place]O [place] Notes: Daughter left message that she started Rescue pack and would like a generic refill for Dexilant, see message center note. Created By: Aminata Mendieta RN Date: May 19, 2022 Method: Phone call Type: Inbound Duration (min): 3 Outcome: Case discussion Contact Type: Patient advocate Contact Name: Geneva Ny Notes: Daughter called with information for help at hand for Dexilant. see message center note. Created By: Aminata Mendieta RN Date: May 17, 2022 Method: Phone call Type: Inbound Duration (min): 22 Outcome: Case discussion Contact Type: Patient advocate Contact Name: Geneva Ny Notes: Daughter Geneva calls with concerns see message center note. Created By: Aminata Mendieta RN Date: May 10, 2022 Method: Phone call Type: Outbound Duration (min): 10 Outcome: Case discussion Contact Type: Complex daycare managerproject manager finance Name: Aminata Mendieta RN Notes: Daughter left message asking for a return call. Called daughter, see FT summary note. Created By: Aminata Mendieta RN Date: March 25, 2022 Method: Phone call Type: Inbound Duration (min): 10 Outcome: Case discussion Contact Type: Patient Contact Name: MATEO [place] Notes: CCM patient calls with complaints of thrush again, see message center note. Created By: Aminata Mendieta RN Date: March 16, 2022 Method: Phone call Type: Outbound Duration (min): 5 Outcome: Case discussion Contact Type: Complex daycare managerproject manager finance Name: Aminata Mendieta RN Notes: Called daughter back regarding Prednsone prescription. See message center note. Created By: Aminata Mendieta RN Date: March 16, 2022 Method: Phone call Type: Outbound Duration (min): 1 Outcome: Case discussion Contact Type: Complex daycare managerproject manager finance Name: Juani De La Garza MA Notes: [facility] called patient about prescription for Prednisone. Created By: Aminata Mendieta RN Date: March 15, 2022 Method: Phone call Type: Outbound Duration (min): 1 Outcome: Left message-voicemail Contact Type: Complex daycare managerproject manager finance Name: Aminata Mendieta RN Notes: Left message that Pulmonology office should call tomorrow to schedule patient. Created By: Aminata Mendieta RN Date: March 15, 2022 Method: Phone call Type: Outbound Duration (min): 3 Outcome: Case discussion Contact Type: Specialist Contact Name: Aminata Mendieta RN Notes: Called Pulmonology to see about referral for patient, see message center note. Created By: Aminata Mendieta RN Date: March 04, 2022 Method: Phone call Type: Outbound Duration (min): 6 Outcome: Case discussion Contact Type: Complex daycare managerproject manager finance Name: Aminata Mendieta RN Notes: Called [facility] patient for follow-up on thrush, see FT summary note. Created By: Aminata Mendieta RN Date: February 21, 2022 Method: Phone call Type: Inbound Duration (min): 15 Outcome: Case discussion Contact Type: Patient Contact Name: MATEO [place] Notes: [facility] patient called started COPD rescue pack 02/18/22. See FT summary note. Created By: Aminata Mendieta RN Date: February 15, 2022 Method: Phone call Type: Outbound Duration (min): 1 Outcome: Case discussion Contact Type: Complex daycare managerproject manager finance Name: Aminata Mendieta RN Notes: CCM patient called for follow-up and to schedule appointment, no answer, left voicemail asking for a return call. Created By: Aminata Mendieta RN Date: January 24, 2022 Method: Phone call Type: Outbound Duration (min): 11 Outcome: Case discussion Contact Type: Complex daycare managerproject manager finance Name: Aminata Mendieta RN Notes: Called CCM patient for follow-up. Created By: Aminata Mendieta RN Date: January 13, 2022 Method: In-person Type: -- Duration (min): 7 Outcome: Case discussion Contact Type: Complex daycare managerproject manager finance Name: Aminata Mendieta RN Notes: Patient in office asking for samples of Stiolto Respimat. Created By: Aminata Mendieta RN Date: January 12, 2022 Method: Phone call Type: Outbound Duration (min): 3 Outcome: Case discussion Contact Type: Complex daycare managerproject manager finance Name: Debbi Hammer Notes: See message center note. Created By: Aminata Mendieta RN Date: January 12, 2022 Method: Phone call Type: Inbound Duration (min): 6 Outcome: Case discussion Contact Type: Patient advocate Contact Name: Geneva Ny Notes: Daughter called patient started COPD Rescue pack on 01/09/22, see message center note. Created By: Aminata Mendieta RN Date: December 28, 2021 Method: Phone call Type: Inbound Duration (min): 25 Outcome: Case discussion Contact Type: Patient advocate Contact Name: Geneva Ny Notes: daughter called with updates and needs for medications. See message center note. Created By: Aminata Mendieta RN Date: November 30, 2021 Method: Phone call Type: Outbound Duration (min): 18 Outcome: Case discussion Contact Type: Complex daycare managerproject manager finance Name: Aminata Mendieta RN Notes: Called [facility] patient for follow-up, see FT summary note. Created By: Aminata Mendieta RN Date: November 23, 2021 Method: Phone call Type: Inbound Duration (min): 5 Outcome: Case discussion Contact Type: Patient advocate Contact Name: -- Notes: Daughter called regarding patient breathing and samples of Stioloto inhaler. See FT summary note. Created By: Aminata Mendieta RN Date: November 02, 2021 Method: Phone call Type: Outbound Duration (min): 1 Outcome: Left message-voicemail Contact Type: Complex daycare managerproject manager finance Name: Aminata Mendieta RN Notes: Left message regarding samples and [facility] phone number and to call if any questions. Created By: Aminata Mendieta RN Date: November 02, 2021 Method: Phone call Type: Outbound Duration (min): 7 Outcome: Case discussion Contact Type: Complex daycare managerproject manager finance Name: -- Notes: CCM follow-up see FT summary note. Created By: Aminata Mendieta RN Date: October 13, 2021 Method: Phone call Type: Outbound Duration (min): 3 Outcome: Case discussion Contact Type: Complex daycare managerproject manager finance Name: Aminata Mendieta RN Notes: Called daughter and explained information regrding [employer] incontinence program. See Ft summary note. Created By: Aminata Mendieta RN Date: October 13, 2021 Method: Phone call Type: Outbound Duration (min): 4 Outcome: Case discussion Contact Type: Vendor Contact Name: Enzo Notes: Called [facility] to see if there was any coverage for incontinence supplies. Medicare does nort cover but they have incontinence program. See FT summary note. Created By: Aminata Mendieta RN Date: October 13, 2021 Method: Phone call Type: Outbound Duration (min): 10 Outcome: Case discussion Contact Type: Complex daycare managerproject manager finance Name: Aminata Mendieta RN Notes: Called [facility] patient to confirm cancellation of appointment and schedule to establish with Dr. Gallardo Created By: Aminata Mendieta RN Date: September 30, 2021 Method: Phone call Type: Outbound Duration (min): 4 Outcome: Case discussion Contact Type: Complex daycare managerproject manager finance Name: Aminata Mendieta RN Notes: Called [facility] patient for follow-up after leaving ED AMA yesterday. See message center note. Created By: Aminata Mendieta RN Date: September 29, 2021 Method: Phone call Type: Inbound Duration (min): 6 Outcome: Case discussion Contact Type: Patient advocate Contact Name: Geneva Carusoo Notes: Patient daughter called patient having chest pain, see message center note. Created By: Aminata Mendieta RN Date: September 23, 2021 Method: Phone call Type: Outbound Duration (min): 6 Outcome: Case discussion Contact Type: Complex daycare managerproject manager finance Name: Aminata Mendieta RN Notes: Called [facility] for update on cough, see message center note. Created By: Aminata Mendieta RN Date: September 21, 2021 Method: Phone call Type: Outbound Duration (min): 3 Outcome: Case discussion Contact Type: Complex daycare managerproject manager finance Name: Aminata Mendieta RN Notes: Called patient rescheduled appointment and advised to restart Mucinex and chaeck with pharmacy this afternoon for new prescriptions. See message center note. Created By: Aminata Mendieta RN Date: September 21, 2021 Method: Phone call Type: Outbound Duration (min): 3 Outcome: Case discussion Contact Type: Complex daycare managerproject manager finance Name: Aminata Mendieta RN Notes: Patient could not wait on hold for Telehealth visit. Will speak with Dr. sifuentes and call back with plan of care. Created By: Aminata Mendieta RN Date: September 21, 2021 Method: Phone call Type: Outbound Duration (min): 2 Outcome: Case discussion Contact Type: Complex daycare managerproject manager finance Name: Aminata Mendieta RN Notes: Called patient to schedule appointment per Dr. Sifuentes. See message center note. Created By: Aminata Mendieta RN Date: September 20, 2021 Method: Phone call Type: Outbound Duration (min): 2 Outcome: Case discussion Contact Type: Complex daycare managerproject manager finance Name: Aminata Mendieta RN Notes: Called daughter and explained message sent to Dr. Sifuentes and if patient symptoms worsen please take to [facility], will call with answer. Created By: Aminata Mendieta RN Date: September 20, 2021 Method: Phone call Type: Inbound Duration (min): 1 Outcome: Case discussion Contact Type: Patient advocate Contact Name: Geneva Carusoo Notes: Daughter left message about productive cough, see message center note. Created By: Aminata Mendieta RN Date: September 09, 2021 Method: Phone call Type: Outbound Duration (min): 25 Outcome: Case discussion Contact Type: Complex daycare managerproject manager finance Name: Aminata Mendieta RN Notes: CCM follow-up, see FT summary note. Created By: Aminata Mendieta RN Date: September 08, 2021 Method: Phone call Type: Outbound Duration (min): -- Outcome: No answer Contact Type: Complex daycare managerproject manager finance Name: Aminata Mendieta RN Notes: Attempted to call daughter to notify of samples available, no answer, no voicemail, Will try again. Created By: Aminata Mendieta RN Date: August 30, 2021 Method: Phone call Type: Inbound Duration (min): 4 Outcome: Case discussion Contact Type: Patient advocate Contact Name: Demetria ny Notes: See message center note regarding samples of Stiolto Created By: Aminata Mendieta RN Date: August 05, 2021 Method: Phone call Type: Outbound Duration (min): 10 Outcome: Case discussion Contact Type: Complex daycare managerproject manager finance Name: Aminata Mendieta RN Notes: CCM follow-up, see FT summary note. Created By: Aminata Mendieta RN Date: July 28, 2021 Method: Phone call Type: Outbound Duration (min): 5 Outcome: Case discussion Contact Type: Complex daycare managerproject manager finance Name: Aminata Mendieta RN Notes: Called daughter back, see message center note. Created By: Aminata Mendieta RN Date: July 28, 2021 Method: Phone call Type: Inbound Duration (min): 1 Outcome: Case discussion Contact Type: Patient advocate Contact Name: Geneva Ny Notes: Daughter left message asking for a return call. Created By: Aminata Mendieta RN Date: July 19, 2021 Method: Phone call Type: Outbound Duration (min): 5 Outcome: Case discussion Contact Type: Complex daycare managerproject manager finance Name: Aminata Mendieta RN Notes: Called [facility] patient regarding cough, see message center note. Created By: Aminata Mendieta RN Date: July 16, 2021 Method: Phone call Type: Inbound Duration (min): 11 Outcome: Case discussion Contact Type: Patient Contact Name: MATEO [place] Notes: Patient returened call with concerns, see message center note. Created By: Aminata Mendieta RN Date: July 16, 2021 Method: Phone call Type: Outbound Duration (min): -- Outcome: Left message-voicemail Contact Type: Complex daycare managerproject manager finance Name: Aminata Mendieta RN Notes: Attempted to call patint for CCM follow-up, no answer, left message asking for a return call. Created By: Aminata Mendieta RN Date: June 30, 2021 Method: Phone call Type: Outbound Duration (min): 22 Outcome: Case discussion Contact Type: Complex daycare managerproject manager finance Name: Aminata Mendieta RN Notes: CCM monthly follow-up. See FT summary note. Created By: Aminata Mendieta RN Date: June 22, 2021 Method: Phone call Type: Outbound Duration (min): 3 Outcome: Case discussion Contact Type: Complex daycare managerproject manager finance Name: Aminata Mendieta RN Notes: Called CCM patient for bi-weekly follow-up. See FT summary note. Created By: Aminata Mendieta RN Date: June 14, 2021 Method: Phone call Type: Outbound Duration (min): 1 Outcome: Left message-voicemail Contact Type: Complex daycare managerproject manager finance Name: Aminata Mendieta RN Notes: Left message explaining prescription had refill at [facility] and to call if any problems. Created By: Aminata Mendieta RN Date: June 14, 2021 Method: Phone call Type: Inbound Duration (min): 1 Outcome: Case discussion Contact Type: Patient advocate Contact Name: Geneva Ny Notes: Left message asking for a refill of Albuterol and return call. Created By: Aminata Mendieta RN Date: June 08, 2021 Method: Phone call Type: Outbound Duration (min): 15 Outcome: Case discussion Contact Type: Complex daycare managerproject manager finance Name: Aminata Mendieta RN Notes: Called CCM patient for follow-up after Botox injections. See FT summary note. Created By: Aminata Mendieta RN Date: May 24, 2021 Method: Phone call Type: Inbound Duration (min): 13 Outcome: Case discussion Contact Type: Patient advocate Contact Name: Geneva Ny Notes: Daughter of CCM patient called regarding a technicians and trades workers referral. SEe FT summary note. Created By: Aminata Mendieta RN Date: May 10, 2021 Method: Phone call Type: Outbound Duration (min): 5 Outcome: Case discussion Contact Type: Complex daycare managerproject manager finance Name: Aminata Mendieta RN Notes: CCm follow-up, see FT summary note. Created By: Aminata Mendieta RN Date: April 19, 2021 Method: Phone call Type: Outbound Duration (min): 1 Outcome: Case discussion Contact Type: Complex daycare managerproject manager finance Name: Aminata Mendieta RN Notes: Called daughter regrding samples of Stioloto Respimat samples. See message center note. Created By: Aminata Mendieta RN Date: April 16, 2021 Method: Phone call Type: Outbound Duration (min): 14 Outcome: Case discussion Contact Type: Complex daycare managerproject manager finance Name: Aminata Mendieta RN Notes: Called CCM patient for follow-up, see case summary note. Created By: Aminata Mendieta RN Date: March 31, 2021 Method: Phone call Type: Outbound Duration (min): 6 Outcome: Case discussion Contact Type: Complex daycare managerproject manager finance Name: Aminata Mendieta RN Notes: CCM follow-up see summary note. Created By: Aminata Mendieta RN Date: March 24, 2021 Method: Phone call Type: Outbound Duration (min): 1 Outcome: Left message-voicemail Contact Type: Complex daycare managerproject manager finance Name: Aminata Mendieta RN Notes: Attempted to return patient call, no answer, left message. See message jing villalpandoote. Created By: Aminata Mendieta RN Date: March 24, 2021 Method: Phone call Type: Inbound Duration (min): 1 Outcome: Case discussion Contact Type: Patient advocate Contact Name: Geneva Ny Notes: Patient daughter left message asking for a call back regarding ATB. Created By: Aminata Mendieta RN Date: March 23, 2021 Method: Phone call Type: Outbound Duration (min): 4 Outcome: Case discussion Contact Type: Complex daycare managerproject manager finance Name: Aminata Mendieta RN Notes: Called [facility] patient for follow-up on ED visit from 03/20/21. See summary note. Created By: Aminata Mendieta RN Date: March 19, 2021 Method: Phone call Type: Outbound Duration (min): 11 Outcome: Case discussion Contact Type: Complex daycare managerproject manager finance Name: Aminata Mendieta RN Notes: Called [facility] patient for follow-up. See summary note. Created By: Aminata Mendieta RN Date: March 01, 2021 Method: Phone call Type: Outbound Duration (min): 2 Outcome: Case discussion Contact Type: Complex daycare managerproject manager finance Name: Aminata Mendieta RN Notes: Called [facility] regarding inhaler samples, see messsage center note. Created By: Aminata Mendieta RN Date: February 24, 2021 Method: Phone call Type: Inbound Duration (min): 5 Outcome: Case discussion Contact Type: Patient advocate Contact Name: Geneva Ny Notes: See message center note. Created By: Aminata Mendieta RN Date: February 23, 2021 Method: Phone call Type: Outbound Duration (min): 3 Outcome: Case discussion Contact Type: Complex daycare managerproject manager finance Name: Aminata Mendieta RN Notes: See message center note. Created By: Aminata Mendieta RN Date: February 22, 2021 Method: Phone call Type: Inbound Duration (min): 2 Outcome: Case discussion Contact Type: Patient advocate Contact Name: Geneva Carusoo Notes: Daughter left detailed message see message note. Created By: Aminata Mendieta RN Date: February 22, 2021 Method: Phone call Type: Inbound Duration (min): 20 Outcome: Case discussion Contact Type: Patient advocate Contact Name: Geneva Ny Notes: Patient daughter called see case summary note. Created By: Aminata Mendieta RN Date: December 31, 2020 Method: Phone call Type: Inbound Duration (min): 2 Outcome: Case discussion Contact Type: Patient advocate Contact Name: Geneva Ny Notes: Daughter called asking about upcoming appointment times and dates. See message cente note. Created By: Aminata Mendieta RN Date: December 22, 2020 Method: Phone call Type: Inbound Duration (min): 2 Outcome: Case discussion Contact Type: Patient Contact Name: MATEO [place] Notes: See case summary note Created By: Aminata Mendieta RN Date: December 22, 2020 Method: Phone call Type: Outbound Duration (min): 3 Outcome: Case discussion Contact Type: Complex daycare managerproject manager finance Name: Aminata Mendieta RN Notes: See message center note. Created By: Aminata Mendieta RN Date: December 22, 2020 Method: Phone call Type: Outbound Duration (min): 5 Outcome: Case discussion Contact Type: Complex daycare managerproject manager finance Name: Aminata Mendieta RN Notes: Called patient regarding messages from Dr. Sifuentes, see message center notes x 2. Created By: Aminata Mendieta RN Date: December 21, 2020 Method: Phone call Type: Outbound Duration (min): 9 Outcome: Case discussion Contact Type: Complex daycare managerproject manager finance Name: Aminata Mendieta RN Notes: See case summary note. Created By: Aminata Mendieta RN Date: December 18, 2020 Method: Phone call Type: Outbound Duration (min): 2 Outcome: Case discussion Contact Type: Patient advocate Contact Name: DtrDaina Geneva Notes: CN let her know that was not in today, dtr states that she thinks pt has enough to get thorugh till Monday. CN instucted her to call on Monday if she doesn't hear from Aminata or myself. Created By: Linda Mcdonald RN Date: December 18, 2020 Method: Phone call Type: Outbound Duration (min): 1 Outcome: Case discussion Contact Type: Medical facility Contact Name: [facility] Notes: They have stiolto 5 mcg samples only, message sent to PCP; Created By: Linda Mcdonald RN Date: December 04, 2020 Method: Phone call Type: Outbound Duration (min): 4 Outcome: Case discussion Contact Type: Complex daycare managerproject manager finance Name: Aminata Mendieta RN Notes: See message center note. Created By: Aminata Mendieta RN Date: December 03, 2020 Method: Phone call Type: Inbound Duration (min): 17 Outcome: Case discussion Contact Type: Patient Contact Name: MATEO [place] Notes: [facility] patient called with concerns, see message center note. Created By: Aminata Mendieta RN Date: November 09, 2020 Method: Phone call Type: Outbound Duration (min): 12 Outcome: Case discussion Contact Type: Complex daycare managerproject manager finance Name: Aminata Mendieta RN Notes: Called [facility] patient for update from ED visit yesterday. See case summary note. Created By: Aminata Mendieta RN Date: October 22, 2020 Method: Phone call Type: Inbound Duration (min): 20 Outcome: Case discussion Contact Type: Patient Contact Name: ANANT MATEO Peyton Notes: CCM call for October, see case summary note. Created By: Aminata Mendieta RN Date: October 22, 2020 Method: Phone call Type: Outbound Duration (min): -- Outcome: No answer Contact Type: Complex daycare managerproject manager finance Name: Aminata Mendieta RN Notes: Attempted to call daughter regarding sample of inhaler, no answer, voicemail full. Created By: Aminata Mendieta RN Date: October 22, 2020 Method: Phone call Type: Outbound Duration (min): -- Outcome: Left message-voicemail Contact Type: Complex daycare managerproject manager finance Name: Aminata Mendieta RN Notes: Attempted o call patint for October [facility] follow-up. No answer, left message asking ofr a return call. Created By: Aminata Mendieta RN Date: October 21, 2020 Method: Phone call Type: Inbound Duration (min): 3 Outcome: Case discussion Contact Type: Patient advocate Contact Name: Genevasara Carusoo Notes: Daughter called regarding need for Stioloto Respimt inhaler, see case summary note. Created By: Aminata Mendieta RN Date: September 22, 2020 Method: Phone call Type: Inbound Duration (min): 22 Outcome: Case discussion Contact Type: Patient Contact Name: MATEO [place] Notes: [facility] patient called with questions and concerns. See case summary note. Created By: Aminata Mendieta RN Date: September 08, 2020 Method: Phone call Type: Outbound Duration (min): 3 Outcome: Case discussion Contact Type: Complex daycare managerproject manager finance Name: Aminata Mendieta RN Notes: Called [facility] patient regarding outpatient surgery yesterdy, see case summary note. Created By: Aminata Mendieta RN Date: September 02, 2020 Method: Phone call Type: Outbound Duration (min): 19 Outcome: Case discussion Contact Type: Complex daycare managerproject manager finance Name: Aminata Mendieta RN Notes: [facility] monthly follow-up, see case summary note. Created By: Aminata Mendieta RN Date: September 02, 2020 Method: Phone call Type: Outbound Duration (min): -- Outcome: Left message-voicemail Contact Type: Complex daycare managerproject manager finance Name: Aminata Mendieta RN Notes: Patient left message on [facility] phone asking for a return call, called patient , no answer, left message asking for a return call. Created By: Aminata Mendieta RN Date: August 13, 2020 Method: Phone call Type: Outbound Duration (min): 2 Outcome: Case discussion Contact Type: Complex daycare managerproject manager finance Name: Aminata Mendieta RN Notes: Called [facility] patient regarding medication for ringworm, see message center note. Created By: Aminata Mendieta RN Date: August 11, 2020 Method: Phone call Type: Inbound Duration (min): 3 Outcome: Case discussion Contact Type: Complex daycare managerproject manager finance Name: Lexii Casper MA Notes: See message center note regarding ringworm Created By: Aminata Mendieta RN Date: July 29, 2020 Method: Phone call Type: Outbound Duration (min): 21 Outcome: Case discussion Contact Type: Complex daycare managerproject manager finance Name: Aminata Mendieta RN Notes: [facility] monthly follow-up, patient in ED yesterday. See case summary note. Created By: Aminata Mendieta RN Date: July 10, 2020 Method: Phone call Type: Outbound Duration (min): 26 Outcome: Case discussion Contact Type: Complex daycare managerproject manager finance Name: Aminata Mendieta RN Notes: [facility] monthly call. See case summary note. Created By: Aminata Mendieta RN Date: February 27, 2020 Method: Phone call Type: Outbound Duration (min): 21 Outcome: Case discussion Contact Type: academic affairs coordinator Contact Name: Aminata Mendieta RN Notes: [facility] monthly call, See case summary note. Created By: Aminata Mendieta RN Date: December 31, 2019 Method: Phone call Type: Outbound Duration (min): 2 Outcome: Case discussion Contact Type: Complex daycare managerproject manager finance Name: Aminata Mendieta RN Notes: [facility] patient notified of prescriptions sent in, see message center note. Created By: Aminata Mendieta RN Date: December 30, 2019 Method: Phone call Type: Outbound Duration (min): 22 Outcome: Case discussion Contact Type: Complex daycare managerproject manager finance Name: Aminata Mendieta RN Notes: CCM call, see case summary note. Created By: Aminata Mendieta RN Date: December 09, 2019 Method: Phone call Type: Outbound Duration (min): 7 Outcome: Case discussion Contact Type: Complex daycare managerproject manager finance Name: Aminata Mendieta RN Notes: [facility] monthly call, see case summary note. Created By: Aminata Mendieta RN Date: November 28, 2019 Method: Phone call Type: Outbound Duration (min): 1 Outcome: Case discussion Contact Type: Complex daycare managerproject manager finance Name: Marce Teena Lefty Notes: See message center note. Created By: Aminata Mendieta RN Date: November 28, 2019 Method: Phone call Type: Inbound Duration (min): 3 Outcome: Case discussion Contact Type: Patient Contact Name: ANANT MATEO G Notes: See message center note. Created By: Aminata Mendieta RN Date: November 13, 2019 Method: Phone call Type: Inbound Duration (min): 11 Outcome: Case discussion Contact Type: Complex daycare managerproject manager finance Name: Aminata Mendieta RN Notes: [facility] patient called with concerns, see case summary note. Created By: Aminata Mendieta RN Date: November 05, 2019 Method: Phone call Type: Outbound Duration (min): 8 Outcome: Case discussion Contact Type: Complex daycare managerproject manager finance Name: Aminata Mendieta RN Notes: CCM call October, see case summary note. Created By: Aminata Mendieta RN Date: October 28, 2019 Method: Phone call Type: Inbound Duration (min): 2 Outcome: Case discussion Contact Type: Complex daycare managerproject manager finance Name: Brynnfreda ZAFAR Blanka Olea Notes: Patient returned call regarding increase in medications. see message center note. Created By: Aminata Mendieta RN Date: October 28, 2019 Method: Phone call Type: Outbound Duration (min): 3 Outcome: Case discussion Contact Type: Complex daycare managerproject manager finance Name: Case Moon URIAS Notes: Results given regarding abdominal xray and Dr. Sifuentes recommendations, see message center note. Created By: Aminata Mendieta RN Date: October 21, 2019 Method: Phone call Type: Outbound Duration (min): 8 Outcome: Case discussion Contact Type: Complex daycare managerproject manager finance Name: Aminata Mendieta RN Notes: CCM October call. See case summary note. Created By: Aminata Mendieta RN Date: September 03, 2019 Method: Phone call Type: Outbound Duration (min): 21 Outcome: Case discussion Contact Type: Complex daycare managerproject manager finance Name: Aminata Mendieta RN Notes: CCM monthly Lorna call. See case summary call. Created By: Aminata Mendieta RN Date: July 30, 2019 Method: Phone call Type: Outbound Duration (min): 21 Outcome: Case discussion Contact Type: social media managerproject manager finance Name: Aminata Mendieta RN Notes: CCM May call, see caase summary note. Created By: Aminata Mendieta RN Date: July 09, 2019 Method: Phone call Type: Outbound Duration (min): 17 Outcome: Case discussion Contact Type: academic affairs coordinator Contact Name: Aminata Mendieta RN Notes: CCM bi-weekly call. see case summary note. Created By: Aminata Mendieta RN Date: July 08, 2019 Method: Phone call Type: Outbound Duration (min): -- Outcome: No answer Contact Type: social media managerproject manager finance Name: Aminata Mendieta RN Notes: Attempted to call patient for update on medicaations, no answer, unable to leave voicemail. Created By: Aminata Mendieta RN Date: June 18, 2019 Method: Phone call Type: Outbound Duration (min): -- Outcome: Case discussion Contact Type: social media managerproject manager finance Name: Aminata Mendieta RN Notes: Attempted to callpatietn for bi-weekly CCM call for June, no answer, left message asking for return call. Created By: Aminata Mendieta RN Date: June 04, 2019 Method: Phone call Type: Outbound Duration (min): 13 Outcome: Case discussion Contact Type: social media managerproject manager finance Name: Aminata Mendieta RN Notes: CCM May call, see case summary note. Created By: Aminata Mendieta RN Date: June 04, 2019 Method: Phone call Type: Outbound Duration (min): 1 Outcome: Left message-voicemail Contact Type: academic affairs coordinator Contact Name: Aminata Mendieta RN Notes: CCM May call, no answer, left message asking for return call. Created By: Aminata Mendieta RN Date: May 20, 2019 Method: Phone call Type: Outbound Duration (min): 13 Outcome: Case discussion Contact Type: social media managerproject manager finance Name: Aminata Mendieta RN Notes: CCM May call. see case summary note. Created By: Aminata Mendieta RN Date: April 26, 2019 Method: Phone call Type: Inbound Duration (min): 10 Outcome: Case discussion Contact Type: Patient Contact Name: ANANT MATEO G Notes: Patient called CN for CCM follow-up. See Case Summary Note. Created By: Brice Stephenson RN Date: April 16, 2019 Method: In-person Type: -- Duration (min): 22 Outcome: Case discussion Contact Type: Patient Contact Name: MATEO [place] Notes: Patient came to primary care office for assistance with medication patient assistance form. See Case Summary note. Created By: Brice Stephenson RN Date: April 16, 2019 Method: Phone call Type: Outbound Duration (min): -- Outcome: Left message-voicemail Contact Type: social media managerproject manager finance Name: Brice Stephenson RN Notes: CN attempted to call patient for CCM follow-up related to assistance with patient drug assistance paperwork completion. Message left with needed information from patient. Asked patient to return call to CN to discuss further. Created By: Brice Stephenson RN Date: April 08, 2019 Method: Phone call Type: Outbound Duration (min): 22 Outcome: Case discussion Contact Type: social media managerproject manager finance Name: Brice Stephenson RN Notes: CN returned call to patient. See Case Summary note. Created By: Brice Stephenson RN Date: April 08, 2019 Method: Phone call Type: Inbound Duration (min): -- Outcome: Case discussion Contact Type: Patient Contact Name: ANANT MATEO Todd Notes: Patient called and left message for CN requesting return call. Patient notes she has received paperwork in regards to her refill medication and needs assistance to complete paperwork from PCP office. Asking for return phone call. Created By: Brice Stephenson RN Date: April 08, 2019 Method: Phone call Type: Outbound Duration (min): -- Outcome: No answer Contact Type: social media managerproject manager finance Name: Brice Stephenson RN Notes: CN attempted to return patient's call. No answer. Patient's VM currently noted to be full and unable to leave a message at this time. Created By: Brice Stephenson RN Date: March 11, 2019 Method: Phone call Type: Outbound Duration (min): 5 Outcome: Case discussion Contact Type: social media managerproject manager finance Name: Brice Stephenson RN Notes: CN returned call to patient for CCM follow-up call. See Case Summary note. Created By: Brice Stephenson RN Date: March 10, 2019 Method: Phone call Type: Inbound Duration (min): -- Outcome: Case discussion Contact Type: Patient Contact Name: MATEO [place] Notes: Patient called and left message on CN message system over the weekend. Reports she feels strange but states it is not an emergency. Requesting a call back. Created By: Brice Stephenson RN Date: February 27, 2019 Method: In-person Type: -- Duration (min): 4 Outcome: Case discussion Contact Type: social media managerproject manager finance Name: Brice Stephenson RN Notes: CN returned call to patient after conferring with PCP. Created By: Brice Stephenson RN Date: February 27, 2019 Method: Phone call Type: Inbound Duration (min): 7 Outcome: Case discussion Contact Type: Patient Contact Name: ANANTMATEO Cabrera Notes: Patient called CN about Eye appt and BP concerns, CCM follow-up. See Case Summary note. Created By: Brice Stephenson RN Date: February 20, 2019 Method: Phone call Type: Outbound Duration (min): -- Outcome: Left message-voicemail Contact Type: social media managerproject manager finance Name: Brice Stephenson RN Notes: CN attempted to call patient for CCM follow-up call. No answer. Left message asking for return phone call with patient update. Created By: Brice Stephenson RN Date: February 20, 2019 Method: Phone call Type: Inbound Duration (min): 22 Outcome: Case discussion Contact Type: Patient Contact Name: MATEO [place] Notes: Patient returned call to CN for CCM follow-up call. See Case Summary note. Created By: Brice Stephenson RN Date: February 08, 2019 Method: Phone call Type: Outbound Duration (min): -- Outcome: Left message-voicemail Contact Type: social media managerproject manager finance Name: Brice Stephenson RN Notes: CN attempted to call patient for CCM follow-up. No answer. Left message asking for return call. Created By: Brice Stephenson RN Date: January 03, 2019 Method: Phone call Type: Outbound Duration (min): 67 Outcome: Case discussion Contact Type: social media managerproject manager finance Name: Brice Stephenson RN Notes: CN met with patient for CCM initial intake assessment. See I-view and Case Summary note. Created By: Brice Stephenson RN MAIN OR PREOPERATIVE RECORD Observed: 10:45 AM Status: F Source: [facility] Main OR Preoperative Record Holding Area Document Type FTPM Summary Primary Physician: Zachariah Fletcher DO Finalized Date/Time: 06/03/24 09:51:35 Pt. Name: KATIA NYMARY Todd /Sex: 1945 Female Med Rec #: [id number] Physician: Zachariah Fletcher DO Financial #: [id number] Pt. Type: P Room/Bed: / Admit/Disch: 06/03/24 09:39:34 - Institution: Case Times Holding FTPM Pre-Care Text: Verifies consent for planned procedure, identifies individual values and wishes concerning care, includes family members in perioperative teaching Secures patient's records' belongings, and valuables, maintains patient's dignity and privacy, and maintains patient confidentiality Entry 1 In Holding 06/03/24 09:41:00 Outcomes Met? Yes Last Modified By: Katia Hopper RN 06/03/24 09:41:33 Post-Care Text: The patient participates in decisions affecting his or her perioperative plan of care The patient's right to privacy is maintained Surgery Checklist FTPM Entry 1 Patient Birthday, ID Band Procedure History and Physical, Identification: Check, Patient Verification: Surgical Consent, With Participation Patient NPO after Midnight: Yes Date/Time: 06/03/24 09:41:00 Results Reviewed n/a Personal Items: Cataract Lens Implant, Comments: Glasses, Jewelry Personal Items Patient wearing two Complaints of Pain: Yes Comment: rings and glasses. Patient has a history of bilateral cataract lens implants. Pain Comment: 12/20 right low back Operative Site Yes pain Marking: Marked By: Dr. Fletcher Location: Right L4-S1 Availability Equipment, Implants, Verified: X-Ray Does Patient Smoke No Patient states Yes Comment - Adult Daughter-[place] postop adult Supervision supervision available Case Cancelled in No Holding Area see comments below for reason Last Modified By: Katia Hopper RN 06/03/24 09:51:32 Finalized By: Katia Hopper RN Document Signatures Signed By: Katia Hopper RN 06/03/24 09:51 OPERATIVE REPORT Observed: 06/03/2024 10:22 AM Status: C Source: [facility] Operative Report Diagnosis: m54.16, lumbar radiculopathy Procedure: Right L4/5 and L5/S1 lumbar transforaminal epidural steroid injections under fluoroscopic guidance Anesthesia: Local Complications: none After informed consent was obtained, the patient was brought to the procedure suite placed in the prone position. Pulse oximetry and blood pressure were monitored throughout. The low back area is prepped and draped in usual sterile fashion. Using fluoroscopic guidance, skin and subcutaneous tissue overlying the trajectory of the neuroforamina were anesthetized with 2% lidocaine. A 22-gauge Sprotte needles were then advanced under fluoroscopic guidance to the appropriate foramina. Needle tip positions were confirmed under at least 2 fluoroscopic views. Injection of contrast revealed appropriate spread of the dye without vascular uptake. Next, at each site, 1.5 mL of 1.0% lidocaine with 5 mg of dexamethasone was injected through each needle tip. The needles were then removed and the patient was then transferred to the recovery room in stable condition. The pain tolerated the procedure well. There were no apparent complications. Follow-up: The patient will update us on the response to this procedure, and agrees to comply to currently prescribed/recommended therapies. Gadolinium-based contrast was utilized due to patient allergy to iodinated contrast media. Result Comment: Electronical ly Signed By: Zachariah Fletcher DO\.br\Date and Time Signed: 06/03/24 10:24 EDT MAIN OR INTRAOPERATIVE RECORD Observed: 06/03/2024 10:18 AM Status: F Source: [facility] Main OR Intraoperative Recor d IntraOp Document Type FTPM Summary Primary Physician: Zachariah Fletcher DO Finalized Date/Time: 06/03/24 10:22:09 Pt. Name: MATEO [place] Peyton Rodriguez/Sex: 1945 Female Med Rec #: [id number] Physician: Zachariah Fletcher DO Financial #: [id number] Pt. Type: P Room/Bed: / Admit/Disch: 06/03/24 09:39:34 - Institution: Case Times FTPM Entry 1 Patient Times In Room 06/03/24 10:15:00 Out Room 06/03/24 10:22:00 Procedure Times Start 06/03/24 10:18:00 Stop 06/03/24 10:21:00 Anesthesia Times Last Modified By: Oliva Espino RN 06/03/24 10:22:04 Case Attendance FTPM Entry 1 Entry 2 Entry 3 Case Attendee Zachariah Fletcher DO, RN, Oliva Rendon RN, Timothy Hughes Role Performed Surgeon - Primary Health Program Manager - Primary Scrub - Primary Time In 06/03/24 10:15:00 06/03/24 10:15:00 06/03/24 10:15:00 Time Out 06/03/24 10:22:00 06/03/24 10:22:00 06/03/24 10:22:00 Procedure TRANSFORAMINAL EPIDURAL TRANSFORAMINAL EPIDURAL TRANSFORAMINAL EPIDURAL STEROID INJECTIO(Right) STEROID INJECTIO(Right) STEROID INJECTIO(Right) Comments Last Modified By: Srinivas VILLALPANDO, Oliva Espino RN, Oliva Jackson RN 06/03/24 10:22:06 06/03/24 10:22:06 06/03/24 10:22:06 Entry 4 Case Attendee Blake MARTINEZ(Linn)Zuleyma Role Performed Tribunal Member Time In 06/03/24 10:15:00 Time Out 06/03/24 10:22:00 Procedure TRANSFORAMINAL EPIDURAL STEROID INJECTIO(Right) Comments Last Modified By: Oliva Espino RN 06/03/24 10:22:06 Perioperative Protocols FTPM Pre-Care Text: Implements protective measures prior to operative or invasive procedure, confirms identity before the operative or invasive procedure, verifies operative procedure, surgical site, and laterality Entry 1 Procedure(s) TRANSFORAMINAL EPIDURAL Patient Identity Birthday, ID Band STEROID INJECTIO(Right) Verified (select at Check, Patient least 2): Participation Consents / H and P H&P, Surgery/Procedure Operative Site Present Verified Consent Marking Verified Surgical Site Yes Laterality Verified Yes Verified Procedure Verified Yes Correct Patient Yes Position Verified Availability Equipment, Medication, Prep Dry Yes Verified (If X-ray Applicable) PreOp Antibiotic No Time Out Oliva Espino RN, Given Participants Justice VILLALPANDO, Chance Perez DO, Bradford A., Christman RT(Linn)Zuleyma Time Out Complete 06/03/24 10:15:00 Outcomes Met? Yes Last Modified By: Oliva Espino RN 06/03/24 10:15:45 Post-Care Text: The patient is free from signs and symptoms of injury caused by extraneous objects Allergy Information FTPM Pre-Care Text: Verifies allergies Entry 1 Allergies Reviewed? Yes Allergies Reviewed Self/Patient With Outcomes Met? Yes Last Modified By: Oliva Espino RN 06/03/24 10:14:08 Post-Care Text: The patient received appropriate medication(s) safely administered during the perioperative period Surgical Procedures FTPM Entry 1 Procedure Description Procedure TRANSFORAMINAL EPIDURAL Modifiers Right STEROID INJECTION Surgeon Description L4/5 + L5/S1 TFESI Primary Procedure Yes Primary Surgeon Zachariah Fletcher DO Start 06/03/24 10:18:00 Stop 06/03/24 10:21:00 Anesthesia Type None Surgical Service Pain Management Wound Class 1 - Clean Last Modified By: Oliva Espino RN 06/03/24 10:22:07 General Case Data FTPM Pre-Care Text: Classifies surgical wound, implements aseptic technique, initiates traffic control Entry 1 Case Information OR Pain Proc Room Case Level Level 2 Wound Class 1 - Clean Specialty Pain Management Preop Diagnosis M54.16 Postop Same As Preop Yes Postop Diagnosis M54.16 Outcomes Met? Yes Last Modified By: Oliva Espino RN 06/03/24 10:15:57 Post-Care Text: The patient is free from signs and symptoms of infection Skin Assessment (Pre Procedure) FTPM Pre-Care Text: Implements protective measures to prevent skin/ tissue injury due to thermal or mechanical sources Evaluates for signs and symptoms of physical injury to skin and tissue Entry 1 Skin Integrity Intact, [place], Warm, & Skin Abnormality No Dry Outcomes Met? Yes Last Modified By: Oliva Espino RN 06/03/24 10:14:15 Post-Care Text: The patient is free from [...] TRANSFORAMINAL EPIDURAL Body Position Prone STEROID INJECTIO(Right) Feet Uncrossed? Yes Left Arm Position Resting at Side Right Arm Position Resting at Side Left Leg Position Extended Right Leg Position Extended Positioning Device Pillow Under Head Large, Safety Strap, Pillow Large Under Knees Press Points Checked Yes By Oliva Espino RN Outcomes Met? Yes Last Modified By: Oliva Espino RN 06/03/24 10:16:03 Post-Care Text: The patient is free from signs and symptoms of injury related to positioning Transport To OR FTPM Pre-Care Text: Transports according to individual needs. Evaluates for signs and symptoms of skin and tissue injury as a result of transfer or transport Entry 1 Via Cart By Oliva Espino RN Safety Precautions Safety Strap, Side Outcomes Met? Yes Rails Up Last Modified By: Oliva Espino RN 06/03/24 10:16:07 Post-Care Text: The patient is free from signs and symptoms of injury related to transfer/transport Skin Prep FTPM Pre-Care Text: Performs skin preparations Entry 1 Procedure TRANSFORAMINAL EPIDURAL Prep Area BLOCK INJECTION SITE STEROID INJECTIO(Right) Prep Agents Chloraprep/Dry Prior to Start Dry Time 06/03/24 10:15:00 Draping Stop Dry Time 06/03/24 10:18:00 Hair Removal Methods Not Indicated By Timothy Rendon RN Outcomes Met? Yes Last Modified By: Oliva Espino RN 06/03/24 10:16:19 Post-Care Text: The patient is free from signs and symptoms of infection Departure From OR FTPM Pre-Care Text: Transports according to individual needs. Evaluates for signs and symptoms of skin and tissue injury as a result of transfer or transport. Entry 1 Via Cart Safety Precautions Safety Strap, Side Rails Up PostOp Destination PACU Transported By Oliva Espino RN Patient Status Stable Report Given Irene Loomis RN To/Hand Off Communication Skin. Condition Dry, Intact Airway Maintenance Oxygen in Use? No Outcomes Met? Yes Last Modified By: Oliva Espino RN 06/03/24 10:16:37 Post-Care Text: The patient is free from signs and symptoms of injury related to transfer/transport Dressing/Packing FTPM Pre-Care Text: Administers care to wound sites Entry 1 Type Dressing Site and Details 4x4 gauze dressing covered with Tegaderm Opsite to site Outcomes Met? Yes Last Modified By: Oliva Espino RN 06/03/24 10:17:26 Post-Care Text: The patient is free from signs and symptoms of infection Medication Administration FTPM Pre-Care Text: Verifies allergies, administers prescribed medications and solutions, administers prescribed antibiotic therapy and immunizing agents as ordered, evaluates response to medications Administers prescribed medications and solutions Entry 1 Route of Admin Block Expiration Date Yes Verified Ordered By Zachariah Fletcher DO Transcribed/To Oliva Espino RN Field By Administered By Zachariah Fletcher DO Outcomes Met? Yes Last Modified By: Oliva Espino RN 06/03/24 10:17:32 Post-Care Text: The patient received appropriate medication(s) safely administered during the perioperative period X-Rays & Images FTPM Pre-Care Text: Assess history of previous radiation exposure and implements protective measures Entry 1 X-Ray Type C-Arm Contrast Used? No Outcomes Met? Yes Last Modified By: Oliva Espino RN 06/03/24 10:20:04 Post-Care Text: The patient is free from signs and symptoms of radiation injury General Comments: Karime used Case Comments <None> Finalized By: Oliva Espino RN Document Signatures Signed By: Oliva Espino RN 06/03/24 10:22 CONSULTATION NOTE Observed: 05/17/2024 9:37 AM Status: F Source: [facility] Consultation Note Patient: MATEO [place] Age: 78 years Sex: Female : 1945 Associated Diagnoses: None Author: Marilu Cornell PA-C Subjective Chief complaint 05/17/2024 9:15 EST Right buttock Pain . Patient is a 78-year-old female. She presents today for follow-up after undergoing a left shoulder injection. This was done 01/2024. This has given her 100% relief of her left shoulder pain. Her left shoulder pain is completely resolved and she is happy. Unfortunately, her right radiating leg pain has since returned. She has a history of radicular symptoms and she last underwent bilateral L4-5 transforaminal epidural steroid injection in December 2023. This gave her at least 80% relief of both sided symptoms until April 2024 when the right radiating leg pain has returned. He has a history of right sided transforaminal epidural steroid injection only in August 2022 with over a year of relief. Unfortunate, at this time she has the right radiating leg pain that she rates a 9???10/10. She is done therapy in the past and is doing more therapy that unfortunate, has not given her any significant relief. She has taken [id number] anti-inflammatory medications that has not given her any significant relief. At this time, the right radiating leg pain is overall very bothersome to her. Health Status Allergies: Allergic Reactions (Selected) Severe [...] EA, 0, Expires in 5 years, Supply [facility] Prescription: [facility] Prescription, See Instructions, 1 EA, 0, Wheelchair, Supply acetaminophen-oxycodone 325 mg-5 mg Tab: 1 tab(s), Oral, BID, 60 tab(s), Refill(s) 0, 30 day supply M54.2, [facility]/pharmacy #[id number], 165, cm, 04/17/24 11:24:00 EST, Height/Length Dosing, 83.2, kg, 04/17/24 11:24:00 EST, Weight Dosing amLODIPine 5 mg Tab: See Instructions, TAKE 1 TABLET BY MOUTH EVERY DAY, # 90 tab(s), Refills(s) 4, Pharmacy: [facility] [id number], 168, cm, 04/09/24 9:05:00 EST, Height/Length Dosing, 83.2, kg, 04/09/24 9:05:00 EST, Weight Dosing cyclobenzaprine 5 mg Tab: 5 mg = 1 tab(s), Oral, Bedtime, # 30 tab(s), Refills(s) 12, [id number], 168, cm, 08/22/23 8:56:00 EDT, Height/Length Dosing, 85.5, kg, 08/22/23 8:55:00 EDT, Weight Dosing diclofenac topical 1% gel: 1 elva, Topical, QID for pain, 100 gram, Refill(s) 0, [id number], 168, cm, 12/04/23 11:21:00 EDT, Height/Length Dosing, 90.7, kg, 12/04/23 11:21:00 EDT, Weight Dosing gabapentin 300 mg Cap: 300 mg = 1 cap(s), Oral, TID, # 90 cap(s), Refills(s) 11, [id number], 168, cm, 08/22/23 8:56:00 EDT, Height/Length Dosing, 85.5, kg, 08/22/23 8:55:00 EDT, Weight Dosing hydrochlorothiazide-triamterene 25 mg-37.5 mg Tab: See Instructions, 90 tab(s), Refill(s) 4, TAKE 1 TABLET BY MOUTH EVERY DAY, [id number], 168, cm, 04/09/24 9:05:00 EST, Height/Length Dosing, 83.2, kg, 04/09/24 9:05:00 EST, Weight Dosing nebulizer supplies: nebulizer supplies, See Instructions, 1 EA, 11, nebulizer supplies dx J44.9, [facility], Supply, 158, cm, 12/27/19 11:56:00 EDT, Height/Length Dosing, 88.6, kg, 12/27/19 11:56:00 EDT, Weight Dosing omeprazole 20 mg Cap-DR: 20 mg = 1 cap(s), Oral, Daily, # 90 cap(s), Refills(s) 4, [id number], 169, cm, 03/31/23 13:47:00 EST, Height/Length Dosing, 83.6, kg, 03/31/23 13:47:00 EST, Weight Dosing triamcinolone Top 0.1% Crm 15 gram: 1 elva, Topical, BID, 30 gram, Refill(s) 11, [facility]/pharmacy #[id number], 164, cm, 01/09/23 16:01:00 EDT, Height/Length Dosing, 86.6, kg, 01/09/23 16:01:00 EDT, Weight Dosing Documented Medications Documented Dulcolax Tab-EC: 2-3 tabs, Oral, Daily, adjusts for constipation concerns, Refills(s) 0 Tylenol: 500 mg, Oral, q6hr, Refills(s) 0 Problem list: All Problems Tobacco use, continuous / SNOMED CT 6336791337 / Confirmed Diaphragm paralysis / SNOMED 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 / 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 Tremor / SNOMED CT 15248700 / Confirmed DDD (degenerative disc disease), cervical / SNOMED CT 120177533 / Confirmed Bilateral hearing loss / SNOMED CT 474585963 / Confirmed GERD (gastroesophageal reflux disease) / SNOMED CT 652411546 / Confirmed HTN (hypertension) / SNOMED CT 6725586196 / Confirmed Emphysema/COPD / SNOMED CT 3544552 / Confirmed History of stroke / SNOMED CT 1801234873 / Confirmed Former smoker / SNOMED CT 45740361 / Confirmed Other urethral stricture, female / SNOMED CT 323691093 / Confirmed Mixed incontinence / SNOMED CT 77504827 / Confirmed Wears hearing aid in both ears / SNOMED CT 091706986 / Confirmed Generalized osteoarthritis / SNOMED CT 078197109 / Confirmed 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 / SNOMED CT 7455487752 / Confirmed Irritable bowel syndrome with predominant constipation / SNOMED CT 1359534447 / Confirmed Lumbar radiculopathy, right / SNOMED CT 039167939 / Confirmed Patient has healthcare proxy and living will / SNOMED CT 9724451256 / Confirmed OAB (overactive bladder) / SNOMED CT 9555634830 / Confirmed Incontinence without sensory awareness / SNOMED CT 6739799448 / Confirmed Edema / SNOMED CT 182797040 / Confirmed Peripheral neuropathy / SNOMED CT 583662558 / Confirmed Dependent for transportation / SNOMED CT 872626288 / Confirmed Thoracic aorta atherosclerosis / SNOMED CT 626353599 / Confirmed Enrolled in chronic care management / SNOMED CT 576404391 / Confirmed Obesity due to excess calories / SNOMED CT 5777490751 / Confirmed Elevated diaphragm / SNOMED CT 711492092 / Confirmed Pain of right sacroiliac joint / SNOMED CT 363342698 / Confirmed RLS (restless legs syndrome) / SNOMED CT 21081826 / Confirmed Somatic dysfunction of cervical region / SNOMED CT 6540218686 / Confirmed Somatic dysfunction of thoracic region / SNOMED CT 6419485077 / Confirmed Somatic dysfunction of lumbar region / SNOMED CT 2202164244 / Confirmed Somatic dysfunction of sacral spine / SNOMED CT 9135831629 / Confirmed Somatic dysfunction of lower extremities / SNOMED CT 8868488115 / Confirmed Somatic dysfunction of rib cage region / SNOMED CT 7593357135 / Confirmed Somatic dysfunction of abdominal region / SNOMED CT 4785622398 / Confirmed Severe obstructive sleep apnea / SNOMED CT 570948422 / Confirmed Insomnia / SNOMED CT 955701417 / Confirmed S/P knee replacement / SNOMED CT 813706141 / Confirmed Mild cognitive impairment / SNOMED CT 6658494833 / Confirmed noted in 04/24/2023 Neurology Consult Note page 1. added per OP CDI policy. Stage 3a chronic kidney disease (CKD) / SNOMED CT 4852144411 / Confirmed added per 06/26/2023 query response. Major depressive disorder, recurrent, mild / SNOMED CT 967032940 / Confirmed added per 06/26/2023 query response. Chronic respiratory failure with hypoxia / SNOMED CT 2125387259 / Confirmed added per 06/26/2023 query response. 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 Chronic constipation / SNOMED CT 007644826 / Confirmed Chronic low back pain / SNOMED CT 558253363 / Confirmed Spasm of lumbar paraspinous muscle / SNOMED CT 4330008100 / Confirmed Abdominal weakness / SNOMED CT 911126025 / Confirmed Stooped posture / SNOMED CT 72321174 / Confirmed Shoulder pain / SNOMED CT 31970233 / Confirmed Frozen shoulder / SNOMED CT 7246361582 / Confirmed Resolved: Stroke / SNOMED CT 493797164 left arm is weaker then right Resolved: Cervical radiculopathy / SNOMED CT 835985822 Resolved: Leg edema / SNOMED CT 625386738 Resolved: Urinary urgency / SNOMED CT 798886690 Resolved: History of UTI / SNOMED CT 7656411222 Resolved: Frequent urination / SNOMED CT 520648999 Resolved: WINTERS (dyspnea on exertion) / SNOMED CT 005023386 Resolved: Rib pain on right side / SNOMED CT 539156085 Resolved: Dizziness / SNOMED CT 9483838972 Resolved: Exposure to second hand smoke / SNOMED CT 66411579 Resolved: Bronchitis with bronchospasm / SNOMED CT 27822267 Resolved: Pain in back / SNOMED CT 744216355 Resolved: Hernia of abdominal wall / SNOMED CT 134059925 Resolved: Abdominal pain, generalized / SNOMED CT 037088804 Resolved: 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 / SNOMED CT 6858306171 Resolved: Right hip pain / SNOMED CT 21029357 Resolved: Body mass index (BMI) of 31.0-31.9 in adult / SNOMED CT 231254596 Resolved: Screening mammogram, encounter for / SNOMED CT 921769277 Resolved: Abnormal urinalysis / SNOMED CT 6894749189 Resolved: Chest pain / SNOMED CT 83544130 Canceled: GERD (gastroesophageal reflux disease) / SNOMED CT 1662527248 Canceled: HTN (hypertension) / SNOMED CT 7467068555 Canceled: Restless leg syndrome / SNOMED CT 4416369844 Canceled: At risk for falls / SNOMED CT 856887253 Problem added when Risk for Falls Careplan was initiated. Resolved due to patient discharge. Canceled: At risk for impaired skin integrity / SNOMED CT 734976944 Problem added based on documenting Adilson score less than or equal to 18, rash, or malnutrition. Resolved due to patient discharge. Canceled: Constipation / SNOMED CT 945304002 Canceled: Atypical chest pain / SNOMED CT 251611879 Canceled: Depression / SNOMED CT 05086213 Canceled: Restless leg syndrome / IMO 74142 Canceled: COPD exacerbation / SNOMED CT 242831291 Canceled: Urge incontinence / SNOMED CT 543790596 Canceled: Microscopic hematuria / SNOMED CT 605042374 Canceled: Other post-traumatic urethral stricture, female / SNOMED CT 107350709 Canceled: Flaccid bladder / SNOMED CT 5190726706 Canceled: Nocturia / SNOMED CT 268565798 Canceled: Chronic kidney disease / SNOMED CT 3556695903 Canceled: Other problems related to lifestyle / SNOMED CT 659304572 Canceled: Flank pain / SNOMED CT 148722083 Canceled: Overactive bladder due to prolapse of female genital organ / SNOMED CT 4975901573 Canceled: BMI 30.0-30.9,adult / SNOMED CT 764320767 Canceled: Stress incontinence / SNOMED CT 528632804 Canceled: Overactive bladder / SNOMED CT 7802199423 Canceled: Class 1 obesity due to excess calories in adult / SNOMED CT 0808586833 Canceled: Body mass index 32.0-32.9, adult / SNOMED CT 330113687 Canceled: Frequency of urination / SNOMED CT 420496185 Canceled: Urgency of urination / SNOMED CT 236144965 Canceled: Hypertension with heart disease / SNOMED CT 5171553006 Canceled: Hypertensive heart disease / SNOMED CT 509663046 Canceled: Community acquired pneumonia / SNOMED CT 0656730233 Canceled: Abdominal pain, RLQ / SNOMED CT 084443581 Canceled: Spigelian hernia / SNOMED CT 967142775 Canceled: Severe obesity (BMI 35.0-35.9 with comorbidity) / SNOMED CT 8539776054 Canceled: BMI 32.0-32.9,adult / SNOMED CT 676999188 Canceled: BMI 35.0-35.9,adult / SNOMED CT 954101031 Canceled: Dietary counseling / SNOMED CT 029982577 Canceled: Urgency of urination / SNOMED CT 241762648 Canceled: ESBL E. coli carrier / SNOMED CT 6532489035 ESBL E coli in urine 11/08/2020 Possible ESBL + urine 03/20/2021. Escherichia coli Canceled: Leg pain, left / SNOMED CT 5244042150 Canceled: Pain in thoracic spine / SNOMED CT 190722138 Canceled: Viral URI / SNOMED CT 441473651 Canceled: Body mass index 34.0-34.9, adult / SNOMED CT 803986233 Canceled: COPD with acute exacerbation / SNOMED CT 690530840 Canceled: BMI 31.0-31.9,adult / SNOMED CT 479180952 Canceled: COPD with chronic bronchitis / SNOMED CT 608915487 Canceled: Oral thrush / SNOMED CT 230839731 Canceled: Somatic dysfunction of occipitocervical region / SNOMED CT 3445370043 Canceled: Mild recurrent major depression / SNOMED CT 043923171 Canceled: Adjustment reaction / SNOMED CT 11488257 Canceled: Acute low back pain with sciatica / SNOMED CT 401672490 Canceled: Memory loss / SNOMED CT 38742043 noted in 04/24/2023 Neurology Consult Note page 1. added per OP CDI policy. Canceled: Anxiety with depression / SNOMED CT 990922062 noted in 04/24/2023 Neurology Consult Note page 1. added per OP CDI policy. Canceled: UTI (urinary tract infection) / SNOMED CT 908030670 Objective Vital Signs 05/17/2024 9:15 EST Peripheral Pulse Rate 79 bpm Respiratory Rate 18 br/min Systolic Blood Pressure 111 mmHg Diastolic Blood Pressure 59 mmHg Mean Arterial Pressure, Cuff 76 mmHg General: Alert and oriented, No acute distress. Eye: Normal conjunctiva. HENT: Normocephalic, Normal hearing. Cardiovascular: No edema. Musculoskeletal Normal range of motion. Normal strength. 5/5 lower extremities right Positive right straight leg raise Integumentary: Warm, Dry, [place]. Neurologic: Alert, Oriented. Psychiatric: Cooperative, Appropriate mood & affect. 14 point review of systems was negative unless otherwise noted. Results Review * Final Report * Reason For Exam M54.16 POWERSCRIBE REPORT IMPRESSION: DEGENERATIVE CHANGES OF THE LUMBAR SPINE DETAILED. EXAM: MRI of the lumbar spine without contrast History: Low back pain and right hip pain. Technique: Multiplanar multisequence MRI of the lumbar spine was obtained without intravenous contrast. Comparison: Lumbar spine radiographs 07/07/2022 Findings: Localizer images demonstrate cervical spine degenerative changes that are incompletely evaluated on this examination. The conus medullaris ends normally. Levocurvature centered at the thoracolumbar junction. The vertebral body heights are well maintained. There is no aggressive bone marrow signal abnormality. Disc desiccation throughout the lumbar spine. Moderate intervertebral disc height loss at L1-L2 and mild intervertebral disc height loss at L3-L4, L4-L5, and L5- S1. L1-L2: 3 mm of retrolisthesis of L1 on L2. Small disc bulge. Mild facet arthropathy. No neuroforaminal or spinal canal stenosis. L2-L3: Small disc bulge. Mild facet arthropathy. Mild left neuroforaminal stenosis. No spinal canal stenosis. L3-L4: Small disc bulge. Moderate facet arthropathy. Ligamentum flavum thickening. Mild spinal canal stenosis. No neuroforaminal stenosis. L4-L5: Anterolisthesis of L4 on L5 of approximately 4 mm secondary to advanced facet arthropathy. Small disc bulge with superimposed central disc protrusion. Severe spinal canal stenosis. No neuroforaminal stenosis. L5-S1: Minimal anterolisthesis of L5 on S1. Small disc bulge. Moderate facet arthropathy. Mild right neuroforaminal stenosis. No spinal canal stenosis. Visualized paravertebral soft tissues appear within normal limits as visualized. A 12 mm hyperintense T2 structure of the left kidney is most likely a cyst. Ordering Provider: Marilu Cornell Signature Line FINAL REPORT Dictated: 07/15/2022 1:29 pm Dakotah Amado DO Signed (Electronic Signature): 07/15/2022 1:29 pm Signed by: Dakotah Amado DO Transcribed by: CAROLYN Technologist: DANNA Technical Comments None RAD REPORT This document has an image Result type: MRI Spine Lumbar w/o Contrast Result date: July 13, 2022 18:50 EDT Result status: Auth (Verified) Result title: MRI Spine Lumbar w/o Contrast Performed by: Dakotah Amado DO on July 15, 2022 13:29 EDT Verified by: Dakoath Amado DO on July 15, 2022 13:29 EDT Encounter info: [id number], [facility], Outpatient, 07/13/2022 - 07/13/2022 Impression and Plan Patient is a 78-year-old female with a past medical history significant for lumbar stenosis, lumbar neuritis and left shoulder pain. Her left shoulder pain is completely resolved from her left shoulder injection done in January 2024. She is pleased and happy about the relief she has gotten from this. Unfortunate, she is once again noticing right radiating leg pain. She has a history of this and has undergone transforaminal epidural steroid injections in the past with significant relief. At this time, based on her imaging finds, her failure to improve with conservative treatments and thus significant response she has gotten from the previous transforaminal epidurals injections I recommended pursuing a right sided L4-5 and L5-S1 transforaminal epidural steroid injection to be done under fluoroscopy for both diagnostic and therapeutic purposes. Procedure was discussed. Risks and benefits were discussed. Patient is agreeable. She is going to follow-up 2 weeks after the injection for reevaluation. Call clinic sooner if necessary. LILI score: 73%. Result Comment: Electronical ly Signed By: Marilu Cornell PA-C\.peng\Date and Time Signed: 05/17/24 09:40 EST POPULATION HEALTH Observed: 05/10/2024 11:38 AM Status: F Source: [facility] Case Information Case Priority: None Programs: -- Referral Source: Mine Engineer Referral Reason: Disease management Case Type: Chronic Care Management Risk Score: -- Case Status: Active (January 03, 2019) Date Assigned: December 19, 2018 Assigned By: Brice Stephenson RN Date Enrolled: January 03, 2019 Assigned Primary Personnel: Dereck Rosario RN Assigned Secondary Personnel: Linda Wing RN Case Physician: Dakotah Gallardo DO Problems Ongoing 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 Incontinence without sensory awareness Insomnia Irritable bowel syndrome with predominant constipation Lumbar radiculopathy, right Major depressive disorder, recurrent, mild Mild cognitive impairment Mixed incontinence OAB (overactive bladder) Obesity due to excess calories Other urethral stricture, female Pain of right sacroiliac joint Patient has healthcare proxy and living will Peripheral neuropathy RLS (restless legs syndrome) S/P knee replacement Severe obstructive sleep apnea Shoulder pain Somatic dysfunction of abdominal region Somatic dysfunction of cervical region Somatic dysfunction of lower extremities Somatic dysfunction of lumbar region Somatic dysfunction of rib cage region Somatic dysfunction of sacral spine Somatic dysfunction of thoracic region Spasm of lumbar paraspinous muscle Stage 3a chronic kidney disease (CKD) Stooped posture Thoracic aorta atherosclerosis Tremor Wears hearing aid in both ears Historical Abdominal pain, generalized Abnormal urinalysis Body mass index (BMI) of 31.0-31.9 in adult Bronchitis with bronchospasm Cervical radiculopathy Chest pain Dizziness WINTERS (dyspnea on exertion) Exposure to second hand smoke Frequent urination Hernia of abdominal wall History of UTI Leg edema Pain in back 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 Rib pain on right side Right hip pain Screening mammogram, encounter for Urinary urgency Procedure/Surgical History Injection of nerve root of lumbar spine using fluoroscopic guidance (12/21/2023), Injection of nerve root of sacral spine [...] callus, mole removal, Tubal ligation. Home Medications acetaminophen-oxycodone 325 mg-5 mg Tab, 1 tab(s), Oral, BID amLODIPine 5 mg Tab, See Instructions cyclobenzaprine 5 mg Tab, 5 mg= 1 tab(s), Oral, Bedtime, 12 refills diclofenac topical 1% gel, 1 elva, Topical, QID, PRN Dulcolax Tab-EC, 2-3 tabs, Oral, Daily gabapentin 300 mg Cap, 300 mg= 1 cap(s), Oral, TID, 11 refills Handicap Placard, See Instructions hydrochlorothiazide-triamterene 25 mg-37.5 mg Tab, See Instructions Misc DME Prescription, See Instructions nebulizer supplies, See Instructions, 11 refills omeprazole 20 mg Cap-DR, 20 mg= 1 cap(s), Oral, Daily, 4 refills triamcinolone Top 0.1% Crm 15 gram, 1 elva, Topical, BID, 11 refills Tylenol, 500 mg, Oral, q6hr Allergies Chocolate (Anaphylaxis) Adhesive Bandage (Itching, Rash) [...] Previous treatment: None. Household tobacco concerns: No., 01/09/2024 Family History Alcoholism: Father. Metastatic cancer: Mother. Parkinson disease: Father. Parkinson's disease: Father. Primary malignant neoplasm of colon: Mother. Screenings and Assessments 01/03/19 12:08:00 Result Name Value Comment Phone Call Monitoring Consent Agreed to continue call Phone Verification Patient Information Full name, street address and date of verified CM Program Enrollment Written consent completed 01/03/19 12:00:00 Result Name Value Comment HIPPA Verified Type of Contact In person in the office Information Given by Patient CM Preferred Spoken Language Comoran CM Preferred Written Language Swiss Preferred Communication Mode Verbal Ability to Read/Write Able to read, Able to write Preferred Method of Contact Cell Best Time to Visit or Contact 10-1 pm, 1-5 pm Best Day to Visit or Contact No preference Preferred Way to Send Patient Engagement Systems Standard mail Lives In Single level home Number in Household 3 Lives with handicapped brother and daughter. 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 Start Date: 2018 Target: - - Status: - - Barriers: - - Comments: - - Intervention Frequency Status Credit Or Loans Officer Use inhaler as prescribed by PCP - - Done - - Start Water aerobic exercises beginning 01/08/19 2 days per week to include water walking - - Done - - Use nebulizer machine as needed for SOB for COPD. - - Progressing - - 10/12/21 Fill Rx for Rescue pack and call CN if starts medications - - Done - - Goal: Will have improvement in lower leg swelling Start Date: 2020 Target: - - Status: - - Barriers: - - Comments: - - Intervention Frequency Status Credit Or Loans Officer Decrease sodium intake to 2000 mg daily, do not use salt shaker. - - Progressing - - Weigh daily, record and notify CN of 3# weight gain in day or %3 over a week. - - Not done - - Keep appointment with Dr. Sifuentes on 10/13/20 at 0920 - - Done - - 06/08/21 Patient is going to try to return to water aerobics once per week, - - Not done - - Keep legs elevated when sitting - - Progressing - - Goal: Reduce frequency of Urinary Tract infections Start Date: 2021 Target: - - Status: - - Barriers: - - Comments: - - Intervention Frequency Status Credit Or Loans Officer Call office at first signs and symptoms of UTI for urinalysis. - - Progressing - - Drink 64 oz of fluids each day to stay hydrated. - - Progressing - - Go to restroom at first sign of urinary urge and not hold. - - Progressing - - See urologist as needed. - - Progressing - - Botox injections for urinary incontinence every 6 months as needed. 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 Start Date: 2018 Target: - - Status: Met Barriers: - - Comments: - - Intervention Frequency Status Credit Or Loans Officer Start water therapy on January 08 and attend every Monday and each week - - Done - - Patient to call Chiropractor to have diapraghm put back in place as needed. - - Progressing - - Goal: Will have relief from constipation Start Date: 2019 Target: - - Status: Met Barriers: - - Comments: - - Intervention Frequency Status Credit Or Loans Officer Take OTC MiraLax 17 gm 1.5 caps BID - - Done - - Follow up with Title Supervisor as needed. - - Done - - Take Trulance 3 mg daily for constipation - - Done - - Right hernia repari surgery scheduled for 09/07/20. - - Done - - Take Ducolax 2 tab a bedtime as directed - - Done - - Progress Note CCM Update for April 2024. Call started at 1039. Patient reports that she feels pretty good. She is having right leg pain. She said she works through the pain by walking and standing; she also used Tylenol and gabapentin. She said this seems to help some. She does not check her blood pressure unless she ???feels funny.??? She describes this as not feeling like herself or becomes confused. She is not having any issues with being short of breath. She said the only time she has problems is when she moves too fast she becomes winded or if she does too much; she said resolves this by slowing doing down. She said she passes her days by doing puzzles. Some of the puzzles she frames for her daughter; she never does the same puzzle over again. She said they are usually the 500-piece puzzles, and this helps her to relax. She also plays a card game called hand and foot at the [facility] in [place] every Monday where they bring snacks. She said after cards they go out to eat. She said she also enjoys washing the dishes because the warm water and the movement of her hands makes her hands feel better. She also helps take care of her brother Huseyin who is MRDD by cooking meals for him. Patient has no needs or concerns at this time. Patient wants to continue the monthly CCM calls. CN will call patient again in May 2024. Patient will continue to take medications as prescribed, keep scheduled appointments, stay as active as possible and continue finding relaxing activities. Call ended at 1102 Communication Events Date: May 10, 2024 Method: Phone call Type: Outbound Duration (min): 23 Outcome: Case discussion Contact Type: Patient Contact Name: MATEO [place] Notes: CCM Update for April 2024 - see case summary note Created By: Linda Wing RN Date: April 08, 2024 Method: Phone call Type: Outbound Duration (min): 14 Outcome: Case discussion Contact Type: Patient Contact Name: MATEO [place] Notes: CCM Update for March 2024 -see case summary note Created By: Linda Wing RN Date: February 23, 2024 Method: Phone call Type: Outbound Duration (min): 1 Outcome: Left message-voicemail Contact Type: Patient Contact Name: MATEO [place] Notes: [facility] Update for February 2024 - no answer - left message along with cn contact info Created By: Linda Wing RN Date: February 06, 2024 Method: Phone call Type: Outbound Duration (min): 1 Outcome: Left message-voicemail Contact Type: Patient Contact Name: MATEO [place] Notes: [facility] update - january 2024 attempted to call patient for monthly follow up - no answer - left message along with cn contact info Created By: Linda Wing RN Date: January 11, 2024 Method: Phone call Type: Outbound Duration (min): 1 Outcome: Left message-voicemail Contact Type: Patient Contact Name: MATEO [place] Notes: [facility] Update - Called patient for December 2023 update - no answer - left message along with cn contact info Created By: Linda Wing RN Date: November 24, 2023 Method: In-person Type: -- Duration (min): 37 Outcome: Case discussion Contact Type: Patient Contact Name: MATEO [place]N Notes: [facility] November 2023 update - see case summary note Created By: Linda Wing RN Date: November 23, 2023 Method: Phone call Type: Outbound Duration (min): 1 Outcome: Case discussion Contact Type: Patient emergency contact Contact Name: [place] - daughter Notes: [facility] Nov 2023 - spoke to daughter - they have appt tomorrow 11/24/2023 and they will speak to me then Created By: Linda Wing RN Date: October 24, 2023 Method: Phone call Type: Outbound Duration (min): 1 Outcome: Left message-voicemail Contact Type: Patient emergency contact Contact Name: [place] Notes: [facility] [place] - called for monthly follow up call - left message along with cn contact information Created By: Linda Wing RN Date: June 09, 2023 Method: Phone call Type: Outbound Duration (min): 7 Outcome: Case discussion Contact Type: academic affairs coordinator Contact Name: Dereck Rosario RN Notes: Called for [facility]. See case summary note. Created By: Dereck Rosario RN Date: April 28, 2023 Method: Phone call Type: Outbound Duration (min): 3 Outcome: Case discussion Contact Type: academic affairs coordinator Contact Name: Dereck Rosario RN Notes: Called for Feb CCM. See case summary note. Created By: Dereck oRsario RN Date: April 05, 2023 Method: Phone call Type: Outbound Duration (min): 15 Outcome: Case discussion Contact Type: academic affairs coordinator Contact Name: Dereck Rosario RN Notes: Called for Peña CCM. See case summary note. Created By: Dereck Rosario RN Date: March 08, 2023 Method: Phone call Type: Outbound Duration (min): 20 Outcome: Case discussion Contact Type: academic affairs coordinator Contact Name: Dereck Rosario RN Notes: Called for Dec CCM. See case summary note. Created By: Dereck Rosario RN Date: March 08, 2023 Method: Phone call Type: Outbound Duration (min): 1 Outcome: Left message-voicemail Contact Type: academic affairs coordinator Contact Name: Dereck Rosario RN Notes: Called for Dec CCM. Left message asking for return phone call. Created By: Dereck Rosario RN Date: January 13, 2023 Method: Phone call Type: Inbound Duration (min): 10 Outcome: Case discussion Contact Type: Patient Contact Name: ANANT MATEO Todd Notes: CCM patient called, see FT summary note. Created By: Aminata Mendieta RN Date: January 12, 2023 Method: Phone call Type: Outbound Duration (min): 10 Outcome: Case discussion Contact Type: Complex daycare managerproject manager finance Name: Aminata Mendieta RN Notes: Called patient for CCM follow-up, spoke with daughter see FT summary note. Created By: Aminata Mendieta RN Date: November 23, 2022 Method: Phone call Type: Outbound Duration (min): 1 Outcome: Left message-voicemail Contact Type: Complex daycare managerproject manager finance Name: Aminata Mendieta RN Notes: Attempted to call daughter cell phone for CCM follow-up, no answer, left message asking for a return call. Created By: Aminata Mendieta RN Date: November 23, 2022 Method: Phone call Type: Outbound Duration (min): 1 Outcome: Left message-voicemail Contact Type: Complex daycare managerproject manager finance Name: Aminata Mendieta RN Notes: Attempted to call patient for CCM, no answer left message asking for a return call. Created By: Aminata Mendieta RN Date: August 31, 2022 Method: Phone call Type: Outbound Duration (min): 17 Outcome: Case discussion Contact Type: Pharmacist Contact Name: Alejo Stewart Nelli Olea Notes: Medication review with pharmacy. See SOAP note. Created By: Aminata Mendieta RN Date: August 23, 2022 Method: Phone call Type: Outbound Duration (min): 7 Outcome: Case discussion Contact Type: Medical facility Contact Name: Aminata Irena Notes: spoke with Iris from Patient expereince, please see FT summary note. Created By: Aminata Mendieta RN Date: August 23, 2022 Method: Phone call Type: Outbound Duration (min): 16 Outcome: Case discussion Contact Type: Complex daycare managerproject manager finance Name: Aminata Mendieta RN Notes: Daughter left 2 messages while CCN on vacation, returned call see FT summary note. Created By: Aminata Mendieta RN Date: August 01, 2022 Method: Phone call Type: Inbound Duration (min): 7 Outcome: Case discussion Contact Type: Patient advocate Contact Name: [place] Ny Notes: Daughterr called with updates. See FT summary note. Created By: Aminata Mendieta RN Date: July 21, 2022 Method: Phone call Type: Outbound Duration (min): 15 Outcome: Case discussion Contact Type: Complex daycare managerproject manager finance Name: Aminata Mendieta RN Notes: See FT summary note. Created By: Aminata Mendieta RN Date: July 15, 2022 Method: Phone call Type: Outbound Duration (min): 1 Outcome: Left message-voicemail Contact Type: Complex daycare managerproject manager finance Name: Aminata Mendieta RN Notes: Daughter left message at 1030 asking for a return call, called daughter, no answer, left message to call again. Patient was seen by Dr. Hernandez today in [facility]. Created By: Aminata Mendieta RN Date: June 22, 2022 Method: Phone call Type: Outbound Duration (min): 20 Outcome: Case discussion Contact Type: Complex daycare managerproject manager finance Name: Aminata Mendieta RN Notes: Daughter left message asking for a return call, called patient, spoke with daughter see FT summary note. Created By: Aminata Mendieta RN Date: May 25, 2022 Method: Phone call Type: Inbound Duration (min): 1 Outcome: Case discussion Contact Type: Patient Contact Name: MATEO [place] Notes: Daughter left message that she started Rescue pack and would like a generic refill for Dexilant, see message center note. Created By: Aminata Mendieta RN Date: May 19, 2022 Method: Phone call Type: Inbound Duration (min): 3 Outcome: Case discussion Contact Type: Patient advocate Contact Name: [place] Ny Notes: Daughter called with information for help at hand for Dexilant. see message center note. Created By: Aminata Mendieta RN Date: May 17, 2022 Method: Phone call Type: Inbound Duration (min): 22 Outcome: Case discussion Contact Type: Patient advocate Contact Name: [place] Ny Notes: Daughter [place] calls with concerns see message center note. Created By: Aminata Mendieta RN Date: May 10, 2022 Method: Phone call Type: Outbound Duration (min): 10 Outcome: Case discussion Contact Type: Complex daycare managerproject manager finance Name: Aminata Mendieta RN Notes: Daughter left message asking for a return call. Called daughter, see FT summary note. Created By: Aminata Mendieta RN Date: March 25, 2022 Method: Phone call Type: Inbound Duration (min): 10 Outcome: Case discussion Contact Type: Patient Contact Name: MATEO [place] Notes: CCM patient calls with complaints of thrush again, see message center note. Created By: Aminata Mendieta RN Date: March 16, 2022 Method: Phone call Type: Outbound Duration (min): 5 Outcome: Case discussion Contact Type: Complex daycare managerproject manager finance Name: Aminata Mendieta RN Notes: Called daughter back regarding Prednsone prescription. See message center note. Created By: Aminata Mendieta RN Date: March 16, 2022 Method: Phone call Type: Outbound Duration (min): 1 Outcome: Case discussion Contact Type: Complex daycare managerproject manager finance Name: Juani De La Garza MA Notes: [facility] called patient about prescription for Prednisone. Created By: Aminata Mendieta RN Date: March 15, 2022 Method: Phone call Type: Outbound Duration (min): 1 Outcome: Left message-voicemail Contact Type: Complex daycare managerproject manager finance Name: Aminata Mendieta RN Notes: Left message that Pulmonology office should call tomorrow to schedule patient. Created By: Aminata Mendieta RN Date: March 15, 2022 Method: Phone call Type: Outbound Duration (min): 3 Outcome: Case discussion Contact Type: Specialist Contact Name: Aminata Mendieta RN Notes: Called Pulmonology to see about referral for patient, see message center note. Created By: Aminata Mendieta RN Date: March 04, 2022 Method: Phone call Type: Outbound Duration (min): 6 Outcome: Case discussion Contact Type: Complex daycare managerproject manager finance Name: Aminata Mendieta RN Notes: Called [facility] patient for follow-up on thrush, see FT summary note. Created By: Aminata Mendieta RN Date: February 21, 2022 Method: Phone call Type: Inbound Duration (min): 15 Outcome: Case discussion Contact Type: Patient Contact Name: MATEO [place] Notes: CCM patient called started COPD rescue pack 02/18/22. See FT summary note. Created By: Aminata Mendieta RN Date: February 15, 2022 Method: Phone call Type: Outbound Duration (min): 1 Outcome: Case discussion Contact Type: Complex daycare managerproject manager finance Name: Aminata Mendieta RN Notes: CCM patient called for follow-up and to schedule appointment, no answer, left voicemail asking for a return call. Created By: Aminata Mendieta RN Date: January 24, 2022 Method: Phone call Type: Outbound Duration (min): 11 Outcome: Case discussion Contact Type: Complex daycare managerproject manager finance Name: Aminata Mendieta RN Notes: Called CCM patient for follow-up. Created By: Aminata Mendieta RN Date: January 13, 2022 Method: In-person Type: -- Duration (min): 7 Outcome: Case discussion Contact Type: Complex daycare managerproject manager finance Name: Aminata Mendieta RN Notes: Patient in office asking for samples of Stiolto Respimat. Created By: Aminata Mendieta RN Date: January 12, 2022 Method: Phone call Type: Outbound Duration (min): 3 Outcome: Case discussion Contact Type: Complex daycare managerproject manager finance Name: Debbi Hammer Notes: See message center note. Created By: Aminata Mendieta RN Date: January 12, 2022 Method: Phone call Type: Inbound Duration (min): 6 Outcome: Case discussion Contact Type: Patient advocate Contact Name: [place] Ny Notes: Daughter called patient started COPD Rescue pack on 01/09/22, see message center note. Created By: Aminata Mendieta RN Date: December 28, 2021 Method: Phone call Type: Inbound Duration (min): 25 Outcome: Case discussion Contact Type: Patient advocate Contact Name: [place] Ny Notes: daughter called with updates and needs for medications. See message center note. Created By: Aminata Mendieta RN Date: November 30, 2021 Method: Phone call Type: Outbound Duration (min): 18 Outcome: Case discussion Contact Type: Complex daycare managerproject manager finance Name: Aminata Mendieta RN Notes: Called [facility] patient for follow-up, see FT summary note. Created By: Aminata Mendieta RN Date: November 23, 2021 Method: Phone call Type: Inbound Duration (min): 5 Outcome: Case discussion Contact Type: Patient advocate Contact Name: -- Notes: Daughter called regarding patient breathing and samples of Stioloto inhaler. See FT summary note. Created By: Aminata Mendieta RN Date: November 02, 2021 Method: Phone call Type: Outbound Duration (min): 1 Outcome: Left message-voicemail Contact Type: Complex daycare managerproject manager finance Name: Aminata Mendieta RN Notes: Left message regarding samples and [facility] phone number and to call if any questions. Created By: Aminata Mendieta RN Date: November 02, 2021 Method: Phone call Type: Outbound Duration (min): 7 Outcome: Case discussion Contact Type: Complex daycare managerproject manager finance Name: -- Notes: CCM follow-up see FT summary note. Created By: Aminata Mendieta RN Date: October 13, 2021 Method: Phone call Type: Outbound Duration (min): 3 Outcome: Case discussion Contact Type: Complex daycare managerproject manager finance Name: Aminata Mendieta RN Notes: Called daughter and explained information regrding [facility] incontinence program. See Ft summary note. Created By: Aminata Mendieta RN Date: October 13, 2021 Method: Phone call Type: Outbound Duration (min): 4 Outcome: Case discussion Contact Type: Vendor Contact Name: Enzo Notes: Called [facility]'s DME to see if there was any coverage for incontinence supplies. Medicare does nort cover but they have incontinence program. See FT summary note. Created By: Aminata Mendieta RN Date: October 13, 2021 Method: Phone call Type: Outbound Duration (min): 10 Outcome: Case discussion Contact Type: Complex daycare managerproject manager finance Name: Aminata Mendieta RN Notes: Called [facility] patient to confirm cancellation of appointment and schedule to establish with Dr. Gallardo Created By: Aminata Mendieta RN Date: September 30, 2021 Method: Phone call Type: Outbound Duration (min): 4 Outcome: Case discussion Contact Type: Complex daycare managerproject manager finance Name: Aminata Mendieta RN Notes: Called [facility] patient for follow-up after leaving ED AMA yesterday. See message center note. Created By: Aminata Mendieta RN Date: September 29, 2021 Method: Phone call Type: Inbound Duration (min): 6 Outcome: Case discussion Contact Type: Patient advocate Contact Name: [place] Carusoo Notes: Patient daughter called patient having chest pain, see message center note. Created By: Aminata Mendieta RN Date: September 23, 2021 Method: Phone call Type: Outbound Duration (min): 6 Outcome: Case discussion Contact Type: Complex daycare managerproject manager finance Name: Aminata Mendieta RN Notes: Called CCM for update on cough, see message center note. Created By: Aminata Mendieta RN Date: September 21, 2021 Method: Phone call Type: Outbound Duration (min): 3 Outcome: Case discussion Contact Type: Complex daycare managerproject manager finance Name: Aminata Mendieta RN Notes: Called patient rescheduled appointment and advised to restart Mucinex and chaeck with pharmacy this afternoon for new prescriptions. See message center note. Created By: Aminata Mendieta RN Date: September 21, 2021 Method: Phone call Type: Outbound Duration (min): 3 Outcome: Case discussion Contact Type: Complex daycare managerproject manager finance Name: Aminata Mendieta RN Notes: Patient could not wait on hold for Telehealth visit. Will speak with Dr. sifuentes and call back with plan of care. Created By: Aminata Mendieta RN Date: September 21, 2021 Method: Phone call Type: Outbound Duration (min): 2 Outcome: Case discussion Contact Type: Complex daycare managerproject manager finance Name: Aminata Mendieta RN Notes: Called patient to schedule appointment per Dr. Sifuentes. See message center note. Created By: Aminata Mendieta RN Date: September 20, 2021 Method: Phone call Type: Outbound Duration (min): 2 Outcome: Case discussion Contact Type: Complex daycare managerproject manager finance Name: Aminata Mendieta RN Notes: Called daughter and explained message sent to Dr. Sifuentes and if patient symptoms worsen please take to [facility], will call with answer. Created By: Aminata Mendieta RN Date: September 20, 2021 Method: Phone call Type: Inbound Duration (min): 1 Outcome: Case discussion Contact Type: Patient advocate Contact Name: [place] Ny Notes: Daughter left message about productive cough, see message center note. Created By: Aminata Mendieta RN Date: September 09, 2021 Method: Phone call Type: Outbound Duration (min): 25 Outcome: Case discussion Contact Type: Complex daycare managerproject manager finance Name: Aminata Mendieta RN Notes: [facility] follow-up, see FT summary note. Created By: Aminata Mendieta RN Date: September 08, 2021 Method: Phone call Type: Outbound Duration (min): -- Outcome: No answer Contact Type: Complex daycare managerproject manager finance Name: Aminata Mendieta RN Notes: Attempted to call daughter to notify of samples available, no answer, no voicemail, Will try again. Created By: Aminata Mendieta RN Date: August 30, 2021 Method: Phone call Type: Inbound Duration (min): 4 Outcome: Case discussion Contact Type: Patient advocate Contact Name: Jovanyclayton averyanant Notes: See message center note regarding samples of Stiolto Created By: Aminata Mendieta RN Date: August 05, 2021 Method: Phone call Type: Outbound Duration (min): 10 Outcome: Case discussion Contact Type: Complex daycare managerproject manager finance Name: Aminata Mendieta RN Notes: CCM follow-up, see FT summary note. Created By: Aminata Mendieta RN Date: July 28, 2021 Method: Phone call Type: Outbound Duration (min): 5 Outcome: Case discussion Contact Type: Complex daycare managerproject manager finance Name: Aminata Mendieta RN Notes: Called daughter back, see message center note. Created By: Aminata Mendieta RN Date: July 28, 2021 Method: Phone call Type: Inbound Duration (min): 1 Outcome: Case discussion Contact Type: Patient advocate Contact Name: [place] Ny Notes: Daughter left message asking for a return call. Created By: Aminata Mendieta RN Date: July 19, 2021 Method: Phone call Type: Outbound Duration (min): 5 Outcome: Case discussion Contact Type: Complex daycare managerproject manager finance Name: Aminata Mendieta RN Notes: Called CCM patient regarding cough, see message center note. Created By: Aminata Mendieta RN Date: July 16, 2021 Method: Phone call Type: Inbound Duration (min): 11 Outcome: Case discussion Contact Type: Patient Contact Name: ANANT MATEO Todd Notes: Patient returened call with concerns, see message center note. Created By: Aminata Mendieta RN Date: July 16, 2021 Method: Phone call Type: Outbound Duration (min): -- Outcome: Left message-voicemail Contact Type: Complex daycare managerproject manager finance Name: Aminata Mendieta RN Notes: Attempted to call patint for CCM follow-up, no answer, left message asking for a return call. Created By: Aminata Mendieta RN Date: June 30, 2021 Method: Phone call Type: Outbound Duration (min): 22 Outcome: Case discussion Contact Type: Complex daycare managerproject manager finance Name: Aminata Mendieta RN Notes: CCM monthly follow-up. See FT summary note. Created By: Aminata Mendieta RN Date: June 22, 2021 Method: Phone call Type: Outbound Duration (min): 3 Outcome: Case discussion Contact Type: Complex daycare managerproject manager finance Name: Aminata Mendieta RN Notes: Called CCM patient for bi-weekly follow-up. See FT summary note. Created By: Aminata Mendieta RN Date: June 14, 2021 Method: Phone call Type: Outbound Duration (min): 1 Outcome: Left message-voicemail Contact Type: Complex daycare managerproject manager finance Name: Aminata Mendieta RN Notes: Left message explaining prescription had refill at [facility] and to call if any problems. Created By: Aminata Mendieta RN Date: June 14, 2021 Method: Phone call Type: Inbound Duration (min): 1 Outcome: Case discussion Contact Type: Patient advocate Contact Name: [place] Ny Notes: Left message asking for a refill of Albuterol and return call. Created By: Aminata Mendieta RN Date: June 08, 2021 Method: Phone call Type: Outbound Duration (min): 15 Outcome: Case discussion Contact Type: Complex daycare managerproject manager finance Name: Aminata Mendieta RN Notes: Called [facility] patient for follow-up after Botox injections. See FT summary note. Created By: Aminata Mendieta RN Date: May 24, 2021 Method: Phone call Type: Inbound Duration (min): 13 Outcome: Case discussion Contact Type: Patient advocate Contact Name: [place] Ny Notes: Daughter of CCM patient called regarding a technicians and trades workers referral. SEe FT summary note. Created By: Aminata Mendieta RN Date: May 10, 2021 Method: Phone call Type: Outbound Duration (min): 5 Outcome: Case discussion Contact Type: Complex daycare managerproject manager finance Name: Aminata Mendieta RN Notes: CCm follow-up, see FT summary note. Created By: Aminata Mendieta RN Date: April 19, 2021 Method: Phone call Type: Outbound Duration (min): 1 Outcome: Case discussion Contact Type: Complex daycare managerproject manager finance Name: Aminata Mendieta RN Notes: Called daughter regrding samples of Stioloto Respimat samples. See message center note. Created By: Aminata Mendieta RN Date: April 16, 2021 Method: Phone call Type: Outbound Duration (min): 14 Outcome: Case discussion Contact Type: Complex daycare managerproject manager finance Name: Aminata Mendieta RN Notes: Called CCM patient for follow-up, see case summary note. Created By: Aminata Mendieta RN Date: March 31, 2021 Method: Phone call Type: Outbound Duration (min): 6 Outcome: Case discussion Contact Type: Complex daycare managerproject manager finance Name: Aminata Mendieta RN Notes: CCM follow-up see summary note. Created By: Aminata Mendieta RN Date: March 24, 2021 Method: Phone call Type: Outbound Duration (min): 1 Outcome: Left message-voicemail Contact Type: Complex daycare managerproject manager finance Name: Aminata Mendieta RN Notes: Attempted to return patient call, no answer, left message. See message cente rnote. Created By: Aminata Mendieta RN Date: March 24, 2021 Method: Phone call Type: Inbound Duration (min): 1 Outcome: Case discussion Contact Type: Patient advocate Contact Name: [place] Ny Notes: Patient daughter left message asking for a call back regarding ATB. Created By: Aminata Mendieta RN Date: March 23, 2021 Method: Phone call Type: Outbound Duration (min): 4 Outcome: Case discussion Contact Type: Complex daycare managerproject manager finance Name: Aminata Mendieta RN Notes: Called [facility] patient for follow-up on ED visit from 03/20/21. See summary note. Created By: Aminata Mendieta RN Date: March 19, 2021 Method: Phone call Type: Outbound Duration (min): 11 Outcome: Case discussion Contact Type: Complex daycare managerproject manager finance Name: Aminata Mendieta RN Notes: Called [facility] patient for follow-up. See summary note. Created By: Aminata Mendieta RN Date: March 01, 2021 Method: Phone call Type: Outbound Duration (min): 2 Outcome: Case discussion Contact Type: Complex daycare managerproject manager finance Name: Aminata Mendieta RN Notes: Called [facility] regarding inhaler samples, see messsage center note. Created By: Aminata Mendieta RN Date: February 24, 2021 Method: Phone call Type: Inbound Duration (min): 5 Outcome: Case discussion Contact Type: Patient advocate Contact Name: [place] Ny Notes: See message center note. Created By: Aminata Mendieta RN Date: February 23, 2021 Method: Phone call Type: Outbound Duration (min): 3 Outcome: Case discussion Contact Type: Complex daycare managerproject manager finance Name: Aminata Mendieta RN Notes: See message center note. Created By: Aminata Mendieta RN Date: February 22, 2021 Method: Phone call Type: Inbound Duration (min): 2 Outcome: Case discussion Contact Type: Patient advocate Contact Name: [place] Carusoo Notes: Daughter left detailed message see message note. Created By: Aminata Mendieta RN Date: February 22, 2021 Method: Phone call Type: Inbound Duration (min): 20 Outcome: Case discussion Contact Type: Patient advocate Contact Name: [place] Ny Notes: Patient daughter called see case summary note. Created By: Aminata Mendieta RN Date: December 31, 2020 Method: Phone call Type: Inbound Duration (min): 2 Outcome: Case discussion Contact Type: Patient advocate Contact Name: [place] Ny Notes: Daughter called asking about upcoming appointment times and dates. See message cente note. Created By: Aminata Mendieta RN Date: December 22, 2020 Method: Phone call Type: Inbound Duration (min): 2 Outcome: Case discussion Contact Type: Patient Contact Name: MATEO [place] Notes: See case summary note Created By: Aminata Mendieta RN Date: December 22, 2020 Method: Phone call Type: Outbound Duration (min): 3 Outcome: Case discussion Contact Type: Complex daycare managerproject manager finance Name: Aminata Mendieta RN Notes: See message center note. Created By: Aminata Mendieta RN Date: December 22, 2020 Method: Phone call Type: Outbound Duration (min): 5 Outcome: Case discussion Contact Type: Complex daycare managerproject manager finance Name: Aminata Mendieta RN Notes: Called patient regarding messages from Dr. Sifuentes, see message center notes x 2. Created By: Aminata Mendieta RN Date: December 21, 2020 Method: Phone call Type: Outbound Duration (min): 9 Outcome: Case discussion Contact Type: Complex daycare managerproject manager finance Name: Aminata Mendieta RN Notes: See case summary note. Created By: Aminata Mendieta RN Date: December 18, 2020 Method: Phone call Type: Outbound Duration (min): 2 Outcome: Case discussion Contact Type: Patient advocate Contact Name: DtrDaina Geneva Notes: CN let her know that was not in today, dtr states that she thinks pt has enough to get thorugh till Monday. CN instucted her to call on Monday if she doesn't hear from Aimnata or myself. Created By: Linda Mcdonald RN Date: December 18, 2020 Method: Phone call Type: Outbound Duration (min): 1 Outcome: Case discussion Contact Type: Medical facility Contact Name: [facility] Notes: They have stiolto 5 mcg samples only, message sent to PCP; Created By: Linda Mcdonald RN Date: December 04, 2020 Method: Phone call Type: Outbound Duration (min): 4 Outcome: Case discussion Contact Type: Complex daycare managerproject manager finance Name: Aminata Mendieta RN Notes: See message center note. Created By: Aminata Mendieta RN Date: December 03, 2020 Method: Phone call Type: Inbound Duration (min): 17 Outcome: Case discussion Contact Type: Patient Contact Name: ANANT MATEO Peyton Notes: [facility] patient called with concerns, see message center note. Created By: Aminata Mendieta RN Date: November 09, 2020 Method: Phone call Type: Outbound Duration (min): 12 Outcome: Case discussion Contact Type: Complex daycare managerproject manager finance Name: Aminata Mendieta RN Notes: Called [facility] patient for update from ED visit yesterday. See case summary note. Created By: Aminata Mendieta RN Date: October 22, 2020 Method: Phone call Type: Inbound Duration (min): 20 Outcome: Case discussion Contact Type: Patient Contact Name: MATEO [place] Notes: CCM call for October, see case summary note. Created By: Aminata Mendieta RN Date: October 22, 2020 Method: Phone call Type: Outbound Duration (min): -- Outcome: No answer Contact Type: Complex daycare managerproject manager finance Name: Aminata Mendieta RN Notes: Attempted to call daughter regarding sample of inhaler, no answer, voicemail full. Created By: Aminata Mendieta RN Date: October 22, 2020 Method: Phone call Type: Outbound Duration (min): -- Outcome: Left message-voicemail Contact Type: Complex daycare managerproject manager finance Name: Aminata Mendieta RN Notes: Attempted o call patint for October [facility] follow-up. No answer, left message asking ofr a return call. Created By: Aminata Mendieta RN Date: October 21, 2020 Method: Phone call Type: Inbound Duration (min): 3 Outcome: Case discussion Contact Type: Patient advocate Contact Name: Geneva Anant Notes: Daughter called regarding need for Stioloto Respimt inhaler, see case summary note. Created By: Aminata Mendieta RN Date: September 22, 2020 Method: Phone call Type: Inbound Duration (min): 22 Outcome: Case discussion Contact Type: Patient Contact Name: MATEO [place] Notes: [facility] patient called with questions and concerns. See case summary note. Created By: Aminata Mendieta RN Date: September 08, 2020 Method: Phone call Type: Outbound Duration (min): 3 Outcome: Case discussion Contact Type: Complex daycare managerproject manager finance Name: Aminata Mendieta RN Notes: Called [facility] patient regarding outpatient surgery yesterdy, see case summary note. Created By: Aminata Mendieta RN Date: September 02, 2020 Method: Phone call Type: Outbound Duration (min): 19 Outcome: Case discussion Contact Type: Complex daycare managerproject manager finance Name: Aminata Mendieta RN Notes: [facility] monthly follow-up, see case summary note. Created By: Aminata Mendieta RN Date: September 02, 2020 Method: Phone call Type: Outbound Duration (min): -- Outcome: Left message-voicemail Contact Type: Complex daycare managerproject manager finance Name: Aminata Mendieta RN Notes: Patient left message on [facility] phone asking for a return call, called patient , no answer, left message asking for a return call. Created By: Aminata Mendieta RN Date: August 13, 2020 Method: Phone call Type: Outbound Duration (min): 2 Outcome: Case discussion Contact Type: Complex daycare managerproject manager finance Name: Aminata Mendieta RN Notes: Called [facility] patient regarding medication for ringworm, see message center note. Created By: Aminata Mendieta RN Date: August 11, 2020 Method: Phone call Type: Inbound Duration (min): 3 Outcome: Case discussion Contact Type: Complex daycare managerproject manager finance Name: Lexii Casper MA Notes: See message center note regarding ringworm Created By: Aminata Mendieta RN Date: July 29, 2020 Method: Phone call Type: Outbound Duration (min): 21 Outcome: Case discussion Contact Type: Complex daycare managerproject manager finance Name: Aminata Mendieta RN Notes: [facility] monthly follow-up, patient in ED yesterday. See case summary note. Created By: Aminata Mendieta RN Date: July 10, 2020 Method: Phone call Type: Outbound Duration (min): 26 Outcome: Case discussion Contact Type: Complex daycare managerproject manager finance Name: Aminata Mendieta RN Notes: [facility] monthly call. See case summary note. Created By: Aminata Mendieta RN Date: February 27, 2020 Method: Phone call Type: Outbound Duration (min): 21 Outcome: Case discussion Contact Type: academic affairs coordinator Contact Name: Aminata Mendieta RN Notes: [facility] monthly call, See case summary note. Created By: Aminata Mendieta RN Date: December 31, 2019 Method: Phone call Type: Outbound Duration (min): 2 Outcome: Case discussion Contact Type: Complex daycare managerproject manager finance Name: Aminata Mendieta RN Notes: [facility] patient notified of prescriptions sent in, see message center note. Created By: Aminata Mendieta RN Date: December 30, 2019 Method: Phone call Type: Outbound Duration (min): 22 Outcome: Case discussion Contact Type: Complex daycare managerproject manager finance Name: Aminata Mendieta RN Notes: CCM call, see case summary note. Created By: Aminata Mendieta RN Date: December 09, 2019 Method: Phone call Type: Outbound Duration (min): 7 Outcome: Case discussion Contact Type: Complex daycare managerproject manager finance Name: Aminata Mendieta RN Notes: [facility] monthly call, see case summary note. Created By: Aminata Mendieta RN Date: November 28, 2019 Method: Phone call Type: Outbound Duration (min): 1 Outcome: Case discussion Contact Type: Complex daycare managerproject manager finance Name: Marce Teena Olea Notes: See message center note. Created By: Aminata Mendieta RN Date: November 28, 2019 Method: Phone call Type: Inbound Duration (min): 3 Outcome: Case discussion Contact Type: Patient Contact Name: MATEO [place] Notes: See message center note. Created By: Aminata Mendieta RN Date: November 13, 2019 Method: Phone call Type: Inbound Duration (min): 11 Outcome: Case discussion Contact Type: Complex daycare managerproject manager finance Name: Aminata Mendieta RN Notes: [facility] patient called with concerns, see case summary note. Created By: Aminata Mendieta RN Date: November 05, 2019 Method: Phone call Type: Outbound Duration (min): 8 Outcome: Case discussion Contact Type: Complex daycare managerproject manager finance Name: Aminata Mendieta RN Notes: CCM call October, see case summary note. Created By: Aminata Mendieta RN Date: October 28, 2019 Method: Phone call Type: Inbound Duration (min): 2 Outcome: Case discussion Contact Type: Complex daycare managerproject manager finance Name: Brynn CHARISMABlanka Notes: Patient returned call regarding increase in medications. see message center note. Created By: Aminata Mendieta RN Date: October 28, 2019 Method: Phone call Type: Outbound Duration (min): 3 Outcome: Case discussion Contact Type: Complex daycare managerproject manager finance Name: Case ADONAYMoon Notes: Results given regarding abdominal xray and Dr. Sifuentes recommendations, see message center note. Created By: Aminata Mendieta RN Date: October 21, 2019 Method: Phone call Type: Outbound Duration (min): 8 Outcome: Case discussion Contact Type: Complex daycare managerproject manager finance Name: Aminata Mnedieta RN Notes: [facility] October call. See case summary note. Created By: Aminata Mendieta RN Date: September 03, 2019 Method: Phone call Type: Outbound Duration (min): 21 Outcome: Case discussion Contact Type: Complex daycare managerproject manager finance Name: Aminata Mendieta RN Notes: [facility] monthly August call. See case summary call. Created By: Aminata Mendieta RN Date: July 30, 2019 Method: Phone call Type: Outbound Duration (min): 21 Outcome: Case discussion Contact Type: social media managerproject manager finance Name: Aminata Mendieta RN Notes: [facility] May call, see caase summary note. Created By: Aminata Mendieta RN Date: July 09, 2019 Method: Phone call Type: Outbound Duration (min): 17 Outcome: Case discussion Contact Type: academic affairs coordinator Contact Name: Aminata Mendieta RN Notes: [facility] bi-weekly call. see case summary note. Created By: Aminata Mendieta RN Date: July 08, 2019 Method: Phone call Type: Outbound Duration (min): -- Outcome: No answer Contact Type: social media managerproject manager finance Name: Aminata Mendieta RN Notes: Attempted to call patient for update on medicaations, no answer, unable to leave voicemail. Created By: Aminata Mendieta RN Date: June 18, 2019 Method: Phone call Type: Outbound Duration (min): -- Outcome: Case discussion Contact Type: social media managerproject manager finance Name: Aminata Mendieta RN Notes[facility], no answer, left message asking for return call. Created By: Aminata Mendieta RN Date: June 04, 2019 Method: Phone call Type: Outbound Duration (min): 13 Outcome: Case discussion Contact Type: social media managerproject manager finance Name: Aminata Mendieta RN Notes: CCM May call, see case summary note. Created By: Aminata Mendieta RN Date: June 04, 2019 Method: Phone call Type: Outbound Duration (min): 1 Outcome: Left message-voicemail Contact Type: academic affairs coordinator Contact Name: Aminata Mendieta RN Notes: CCM May call, no answer, left message asking for return call. Created By: Aminata Mendieta RN Date: May 20, 2019 Method: Phone call Type: Outbound Duration (min): 13 Outcome: Case discussion Contact Type: social media managerproject manager finance Name: Aminata Mendieta RN Notes: CCM May call. see case summary note. Created By: Aminata Mendieta RN Date: April 26, 2019 Method: Phone call Type: Inbound Duration (min): 10 Outcome: Case discussion Contact Type: Patient Contact Name: MATEO [place] Notes: Patient called CN for CCM follow-up. See Case Summary Note. Created By: Brice Stephenson RN Date: April 16, 2019 Method: In-person Type: -- Duration (min): 22 Outcome: Case discussion Contact Type: Patient Contact Name: ANANT, MATEO G Notes: Patient came to primary care office for assistance with medication patient assistance form. See Case Summary note. Created By: Brice Stephenson RN Date: April 16, 2019 Method: Phone call Type: Outbound Duration (min): -- Outcome: Left message-voicemail Contact Type: social media managerproject manager finance Name: Brice Stephenson RN Notes: CN attempted to call patient for CCM follow-up related to assistance with patient drug assistance paperwork completion. Message left with needed information from patient. Asked patient to return call to CN to discuss further. Created By: Brice Stephenson RN Date: April 08, 2019 Method: Phone call Type: Outbound Duration (min): 22 Outcome: Case discussion Contact Type: social media managerproject manager finance Name: Brice Stephenson RN Notes: CN returned call to patient. See Case Summary note. Created By: Brice Stephenson RN Date: April 08, 2019 Method: Phone call Type: Inbound Duration (min): -- Outcome: Case discussion Contact Type: Patient Contact Name: MATEO [place] Notes: Patient called and left message for CN requesting return call. Patient notes she has received paperwork in regards to her refill medication and needs assistance to complete paperwork from PCP office. Asking for return phone call. Created By: Brice Stephenson RN Date: April 08, 2019 Method: Phone call Type: Outbound Duration (min): -- Outcome: No answer Contact Type: social media managerproject manager finance Name: Brice Stephenson RN Notes: CN attempted to return patient's call. No answer. Patient's VM currently noted to be full and unable to leave a message at this time. Created By: Brice Stephenson RN Date: March 11, 2019 Method: Phone call Type: Outbound Duration (min): 5 Outcome: Case discussion Contact Type: social media managerproject manager finance Name: Brice Stephenson RN Notes: CN returned call to patient for CCM follow-up call. See Case Summary note. Created By: Brice Stephenson RN Date: March 10, 2019 Method: Phone call Type: Inbound Duration (min): -- Outcome: Case discussion Contact Type: Patient Contact Name: ANANT MATEO Peyton Notes: Patient called and left message on CN message system over the weekend. Reports she feels strange but states it is not an emergency. Requesting a call back. Created By: Brice Stephenson RN Date: February 27, 2019 Method: In-person Type: -- Duration (min): 4 Outcome: Case discussion Contact Type: social media managerproject manager finance Name: Brice Stephenson RN Notes: CN returned call to patient after conferring with PCP. Created By: Brice Stephenson RN Date: February 27, 2019 Method: Phone call Type: Inbound Duration (min): 7 Outcome: Case discussion Contact Type: Patient Contact Name: ANANT MATEO Peyton Notes: Patient called CN about Eye appt and BP concerns, CCM follow-up. See Case Summary note. Created By: Brice Stephenson RN Date: February 20, 2019 Method: Phone call Type: Outbound Duration (min): -- Outcome: Left message-voicemail Contact Type: social media managerproject manager finance Name: Brice Stephenson RN Notes: CN attempted to call patient for CCM follow-up call. No answer. Left message asking for return phone call with patient update. Created By: Brice Stephenson RN Date: February 20, 2019 Method: Phone call Type: Inbound Duration (min): 22 Outcome: Case discussion Contact Type: Patient Contact Name: MATEO [place] Notes: Patient returned call to CN for CCM follow-up call. See Case Summary note. Created By: Brice Stephenson RN Date: February 08, 2019 Method: Phone call Type: Outbound Duration (min): -- Outcome: Left message-voicemail Contact Type: social media managerproject manager finance Name: Brice Stephenson RN Notes: CN attempted to call patient for CCM follow-up. No answer. Left message asking for return call. Created By: Brice Stephenson RN Date: January 03, 2019 Method: Phone call Type: Outbound Duration (min): 67 Outcome: Case discussion Contact Type: social media managerproject manager finance Name: Brice Stephenson RN Notes: CN met with patient for CCM initial intake assessment. See I-view and Case Summary note. Created By: Brice Stephenson RN ED PATIENT EDUCATION NOTE Observed: 07/2024 4:29 PM Status: F Source: [facility] ED Patient Education Note Cardiovascular Shortness of Breath, Adult Shortness of breath is when a person has trouble breathing or when a person feels like she or he is having trouble breathing in enough air. Shortness of breath could be a sign of a medical problem. Follow these instructions at home: Pollutants ??? Do not use any products that contain nicotine or tobacco. These products include cigarettes, chewing tobacco, and vaping devices, such as e-cigarettes. This also includes cigars and pipes. If you need help quitting, ask your health care provider. ??? Avoid things that can irritate your airways, including: ? Smoke. This includes campfire smoke, forest fire smoke, and secondhand smoke from tobacco products. Do not smoke or allow others to smoke in your home. ? Mold. ? Dust. ? Air pollution. ? Chemical fumes. ? Things that can give you an allergic reaction (allergens) if you have allergies. Common allergens include pollen from grasses or trees and animal dander. ??? Keep your living space clean and free of mold and dust. General instructions ??? Pay attention to any changes in your symptoms. ??? Take tvvh-jwz-fovulfo and prescription medicines only as told by your health care provider. This includes oxygen therapy and inhaled medicines. ??? Rest as needed. ??? Return to your normal activities as told by your health care provider. Ask your health care provider what activities are safe for you. ??? Keep all follow-up visits. This is important. Contact a health care provider if: ??? Your condition does not improve as soon as expected. ??? You have a hard time doing your normal activities, even after you rest. ??? You have new symptoms. ??? You cannot walk up stairs or exercise the way that you normally do. Get help right away if: ??? Your shortness of breath gets worse. ??? You have shortness of breath when you are resting. ??? You feel light-headed or you faint. ??? You have a cough that is not controlled with medicines. ??? You cough up blood. ??? You have pain with breathing. ??? You have pain in your chest, arms, shoulders, or abdomen. ??? You have a fever. These symptoms may be an emergency. Get help right away. Call 911. ??? Do not wait to see if the symptoms will go away. ??? Do not drive yourself to the hospital. Summary ??? Shortness of breath is when a person has trouble breathing enough air. It can be a sign of a medical problem. ??? Avoid things that irritate your lungs, such as smoking, pollution, mold, and dust. ??? Pay attention to changes in your symptoms and contact your health care provider if you have a hard time completing daily activities because of shortness of breath. This information is not intended to replace advice given to you by your health care provider. Make sure you discuss any questions you have with your health care provider. Document Revised: 10/16/2021 Document Reviewed: 10/16/2021 [employer] Patient Education ? 2023 [employer]Gastroenterology Nausea and Vomiting, Adult Nausea is the feeling that you have an upset stomach or that you are about to vomit. As nausea gets worse, it can lead to vomiting. Vomiting is when stomach contents forcefully come out of your mouth as a result of nausea. Vomiting can make you feel weak and cause you to become dehydrated. Dehydration can make you feel tired and thirsty, cause you to have a dry mouth, and decrease how often you urinate. Older adults and people with other diseases or a weak disease-fighting system (immune system) are at higher risk for dehydration. It is important to treat your nausea and vomiting as told by your health care provider. Follow these instructions at home: Watch your symptoms for any changes. Tell your health care provider about them. Eating and drinking ??? Take an oral rehydration solution (ORS). This is a drink that is sold at pharmacies and retail stores. ??? Drink clear fluids slowly and in small amounts as you are able. Clear fluids include water, ice chips, low-calorie sports drinks, and fruit juice that has water added (diluted fruit juice). ??? Eat bland, dypy-jo-jfrxpl foods in small amounts as you are able. These foods include bananas, applesauce, rice, lean meats, toast, and crackers. ??? Avoid fluids that contain a lot of sugar or caffeine, such as energy drinks, sports drinks, and soda. ??? Avoid alcohol. ??? Avoid spicy or fatty foods. General instructions ??? Take isjl-nbh-kqqhmoi and prescription medicines only as told by your health care provider. ??? Drink enough fluid to keep your urine pale yellow. ??? Wash your hands often using soap and water for at least 20 seconds. If soap and water are not available, use hand phytopathology teacher. ??? Make sure that everyone in your household washes their hands well and often. ??? Rest at home while you recover. ??? Watch your condition for any changes. ??? Take slow and deep breaths when you feel nauseous. ??? Keep all follow-up visits. This is important. Contact a health care provider if: ??? Your symptoms get worse. ??? You have new symptoms. ??? You have a fever. ??? You cannot drink fluids without vomiting. ??? Your nausea does not go away after 2 days. ??? You feel light-headed or dizzy. ??? You have a headache. ??? You have muscle cramps. ??? You have a rash. ??? You have pain while urinating. Get help right away if: ??? You have pain in your chest, neck, arm, or jaw. ??? You feel extremely weak or you faint. ??? You have persistent vomiting. ??? You have vomit that is bright red or looks like black coffee grounds. ??? You have bloody or black stools (feces) or stools that look like tar. ??? You have a severe headache, a stiff neck, or both. ??? You have severe pain, cramping, or bloating in your abdomen. ??? You have difficulty breathing, or you are breathing very quickly. ??? Your heart is beating very quickly. ??? Your skin feels cold and clammy. ??? You feel confused. ??? You have signs of dehydration, such as: ? Dark urine, very little urine, or no urine. ? Cracked lips. ? Dry mouth. ? Sunken eyes. ? Sleepiness. ? Weakness. These symptoms may be an emergency. Get help right away. Call 911. ??? Do not wait to see if the symptoms will go away. ??? Do not drive yourself to the hospital. Summary ??? Nausea is the feeling that you have an upset stomach or that you are about to vomit. As nausea gets worse, it can lead to vomiting. Vomiting can make you feel weak and cause you to become dehydrated. ??? Follow instructions from your health care provider about eating and drinking to prevent dehydration. ??? Take dsyh-fgc-bfnnjma and prescription medicines only as told by your health care provider. ??? Contact your health care provider if your symptoms get worse, or you have new symptoms. ??? Keep all follow-up visits. This is important. This information is not intended to replace advice given to you by your health care provider. Make sure you discuss any questions you have with your health care provider. Document Revised: 09/03/2021 Document Reviewed: 09/03/2021 [employer] Patient Education ? 2023 [employer]Mental and Behavioral Health Confusion Confusion is the inability to think with your usual speed or clarity. Confusion can be caused by many things. People who are confused often describe their thinking as cloudy or unclear. Confusion can also include feeling disoriented. This means you are unaware of where you are or who you are. You may also not know the date or time. When confused, you may have trouble remembering, paying attention, or making decisions. Some people also act aggressively when they are confused. In some cases, confusion may come on quickly. In other cases, it may develop slowly over time. Confusion may be caused by medical conditions such as: ??? Infections, such as a urinary tract infection (UTI). ??? Low levels of oxygen, which can develop from conditions such as long-term lung disorders. ??? Decrease in brain function due to dementia and other conditions that affect the brain, such as seizures, strokes, brain tumors, or head injuries. ??? Mental health conditions, like panic attacks, anxiety, depression, and hallucinations. Confusion may also be caused by physical factors such as: ??? Loss of fluid (dehydration) or an imbalance of salts and minerals in the body (electrolytes). ??? Lack of certain nutrients like niacin, thiamine, or other B vitamins. ??? Fever or hypothermia, which is a sudden drop in body temperature. ??? Low or high blood sugar. ??? Low or high blood pressure. Other causes include: ??? Lack of sleep or changes in routine or surroundings, such as when traveling or staying in a hospital. ??? Using too much alcohol, drugs, or medicine. ??? Side effects of medicines, or taking medicines that affect other medicines (drug interactions). Follow these instructions at home: Pay attention to your symptoms. Tell your health care provider about any changes or if you develop new symptoms. Follow these instructions to control or treat symptoms. Ask a family member or friend for help if needed. Medicines ??? Take vluz-wyw-pegicjd and prescription medicines only as told by your health care provider. ??? Ask your health care provider about changing or stopping any medicines that may be causing your confusion. ??? Avoid pain medicines or sleep medicines until you have fully recovered. ??? Use a pillbox or an alarm to help you take the right medicines at the right time. Lifestyle ??? Eat a balanced diet that includes fruits and vegetables. ??? Get enough sleep. For most adults, this is 7?9 hours each night. ??? Do not drink alcohol. ??? Do not become isolated. Spend time with other people and make plans for your days. ??? Do not drive until your health care provider says that it is safe to do so. ??? Do not use any products that contain nicotine or tobacco, such as cigarettes, e-cigarettes, and chewing tobacco. If you need help quitting, ask your health care provider. ??? Stop other activities that may increase your chances of getting hurt. These may include some work duties, sports activities, swimming, or bike riding. Ask your health care provider what activities are safe for you. Tips for caregivers ??? Find out if the person is confused. Ask the person to state his or her name, age, and the date. If the person is unsure or answers incorrectly, he or she may be confused and need assistance. ??? Always introduce yourself, no matter how well the person knows you. Remind the person of his or her location. ??? Place a calendar and clock near the person who is confused. Keep a regular schedule. Make sure the person has plenty of light during the day and sleep at night. ??? Talk about current events and plans for the day. ??? Keep the environment calm, quiet, and peaceful. ??? Help the person do the things that he or she is unable to do. These include: ? Taking medicines. ? Keeping medical appointments. ? Helping with household duties, including meal preparation. ? Running errands. ??? Get help if you need it. There are several support groups for caregivers. If the person you are helping needs more support, consider day care, extended-care programs, or a intermediate facility. The person's health care provider may be able to help evaluate these options. General instructions ??? Monitor yourself for any conditions you may have. These can include: ? Checking your blood glucose levels if you have diabetes. ? Maintaining a healthy weight. ? Monitoring your blood pressure if you have hypertension. ? Monitoring your body temperature if you have a fever. ??? Keep all follow-up visits. This is important. Contact a health care provider if: ??? You have new symptoms or your symptoms get worse. Get help right away if you: ??? Feel that you are not able to care for yourself. ??? Develop severe headaches, repeated vomiting, seizures, blackouts, or slurred speech. ??? Have increasing confusion, weakness, numbness, restlessness, or personality changes. ??? Develop a loss of balance, have marked dizziness, feel uncoordinated, or fall. ??? Develop severe anxiety, or you have delusions or hallucinations. These symptoms may represent a serious problem that is an emergency. Do not wait to see if the symptoms will go away. Get medical help right away. Call your local emergency services (911 in the [place] Do not drive yourself to the hospital. Summary ??? Confusion is the inability to think with your usual speed or clarity. People who are confused often describe their thinking as cloudy or unclear. ??? Confusion can also include having trouble remembering, paying attention, or making decisions. ??? Confusion may come on quickly or develop slowly over time, depending on the cause. There are many different causes of confusion. ??? Ask for help from family members or friends if you are unable to take care of yourself. This information is not intended to replace advice given to you by your health care provider. Make sure you discuss any questions you have with your health care provider. Document Revised: 06/23/2020 Document Reviewed: 06/23/2020 [employer] Patient Education ? 2023 [employer]. ED PATIENT SUMMARY Observed: 04/17/2024 4:29 PM Status: F Source: [facility] ED Patient Summary [address] [address] Patient Discharge Instructions Person Information Name: MATEO [place] Age: 78 Years Arrival Date: 04/17/2024 11:12:30 Discharge Diagnosis: 1:Confusion; 2:COPD without exacerbation; 3:Nausea & vomiting Primary Care Physician: Dakotah Gallardo DO Provider Information Primary Provider: Rosmery Hoover M.D. Advanced Rural Service Engineer:None The exam and treatment you received in the Emergency Department were for an urgent problem and are not intended as complete care. It is important that you follow up with a doctor, nurse practitioner, or physician???s executive personal assistant for ongoing care. If your symptoms become worse or you do not improve as expected and you are unable to reach your usual health care provider, you should return to the Emergency Department. We are available 24 hours a day. MATEO [place] has been given the following list of patient education materials, prescriptions and follow-up instructions: Follow-up Instructions: With: Address: When: Dakotah Gallardo [address] [place], [place] [id number] In 3 days 04/20/2024 Comments: Return to the emergency room if your shortness of breath gets worse, fever, chest pain, confusion get worse or any new symptoms. In the event that this physician does not participate in your insurance network, please consult with your insurance company to find a nearby participating provider. Patient Education Materials: Nausea and Vomiting, Adult; Shortness of Breath, Adult; Confusion A MESSAGE TO ALL PATIENTS REGARDING OPIOIDS PRESCRIPTION OPIOIDS: WHAT YOU NEED TO KNOW Prescription opioids can be used to help relieve wsbezxwh-ms-eqjhle pain and are often prescribed following a [...] as well, even when taken as directed: ??? Tolerance???meaning you might need to take more of the medication for the same pain relief ??? Physical dependence???meaning you have symptoms of withdrawal when a medication is stopped ??? Increased sensitivity to pain ??? Constipation ??? Nausea, vomiting, and dry mouth ??? Sleepiness and dizziness ??? Confusion ??? Depression ??? Low levels of testosterone that can result in lower sex drive, energy, and strength ??? Itching and sweating RISKS ARE GREATER WITH: ??? History of drug misuse, substance use disorder, or overdose ??? Mental health conditions (such as depression or anxiety) ??? Sleep apnea ??? Older age (65 years and older) ??? Avoid alcohol while taking prescription opioids. Also, unless specifically advised by your health care provider, medications to avoid include: ??? Benzodiazepines (such as Xanax or Valium) ??? Muscle relaxants (such as Soma or Flexeril) ??? Hypnotics (such as Ambien or Lunesta) ??? Other prescription opioids KNOW YOUR OPTIONS Talk to your health care provider about ways to manage your pain that don???t involve prescription opioids. Some of these options may actually work better and have fewer risks and side effects. Options may include: ??? Pain relievers such as acetaminophen, ibuprofen, and naproxen ??? Some medication that are also used for depression or seizures ??? Physical therapy and exercise ??? Cognitive behavioral therapy, a psychological, goal-directed approach, in which patients learn how to modify physical, behavioral, and emotional triggers of pain and stress. IF YOU ARE PRESCRIBED OPIOIDS FOR PAIN: ??? Never take opioids in greater amounts or more often than prescribed. ??? Follow up with your primary health care provider. o Work together to create a plan on how to manage your pain. o Talk about ways to help manage your pain that don???t involve prescription opioids. o Talk about any and all concerns and side effects. ??? Help prevent misuse and abuse o Never sell or share prescription opioids. o Never use another person???s prescription opioids. ??? Store prescription opioids in a secure place and out of reach of others (this may include visitors, children, friends, and family). ??? Safely dispose of unused prescription opioids: Find your community drug take-back program or your pharmacy mail-back program, or flush them down the toilet, following guidance from the Food and Drug Administration (www.fda.gov/Drugs/ResourcesForYou). ??? Visit www.cdc.gov/drugoverdose to learn about the risks of opioids abuse and overdose. ??? If you believe you may be struggling with addiction, tell your health personal carer and ask for guidance or call [facility]???S National Helpline at 0-029-046-HELP. v Source: [place] Department of Health and Human Services/Center for Disease Control & Prevention [facility] Medications Given: Medication Dose Route albuterol-ipratropium 3.00 mL Inhalation famotidine 20.00 mg IV Push Left Lower Forearm ondansetron 4.00 mg IV Left Lower Forearm Medication Information: Medications to Continue with No Changes Other Medications acetaminophen (Tylenol) 500 Milligram By Mouth every 6 hours. acetaminophen-oxycodone (acetaminophen-oxycodone 325 mg-5 mg Tab) 1 Tablets By Mouth 2 times a day. 30 day supply. Refills: 0. amlodipine (amLODIPine 5 mg Tab) TAKE 1 TABLET BY MOUTH EVERY DAY. Refills: 4. bisacodyl (Dulcolax Tab-EC) 2-3 tabs By Mouth every day. adjusts for constipation concerns. cyclobenzaprine (cyclobenzaprine 5 mg Tab) 1 Tablets By Mouth at bedtime. Refills: 12. diclofenac topical (diclofenac topical 1% gel) 1 Application Topical 4 times a day as needed for pain. Refills: 0. gabapentin (gabapentin 300 mg Cap) 1 Capsules By Mouth 3 times a day. Refills: 11. hydrochlorothiazide-triamterene (hydrochlorothiazide-triamterene 25 mg-37.5 mg Tab) TAKE 1 TABLET BY MOUTH EVERY DAY. Refills: 4. Misc Prescription (Handicap Placard) Expires in 5 years. Refills: 0. Misc Prescription (Misc DME Prescription) Wheelchair. Refills: 0. Misc Prescription (nebulizer supplies) nebulizer supplies dx J44.9. Refills: 11. omeprazole (omeprazole 20 mg Cap-DR) 1 Capsules By Mouth every day. Refills: 4. triamcinolone topical (triamcinolone Top 0.1% Crm 15 gram) 1 Application Topical 2 times a day. Refills: 11. Comment: Patient Portal You may access all of your results and other medical record information on our secure patient portal. If you are not signed up for this yet, please contact [employer] at [phone] to get signed up today. RHYS Award Nomination The RHYS (Diseases Attacking the Immune SYstem) Award is an international recognition program that honors and celebrates the skillful, compassionate care nurses provide every day. Anyone who experiences or observes amazing care being provided by a nurse is encouraged to submit a nomination. To nominate your nurse, use your smart phone to scan the QR code below. You may receive a survey from [employer] asking you to rate your care experience. Your feedback is important and will help us understand what we do well and how we can improve the quality of care we provide to you, your loved ones and our community. It???s an honor to serve you. Thank you for choosing [facility] Patient Education Materials: Nausea and Vomiting, Adult Nausea is the feeling that you have an upset stomach or that you are about to vomit. As nausea gets worse, it can lead to vomiting. Vomiting is when stomach contents forcefully come out of your mouth as a result of nausea. Vomiting can make you feel weak and cause you to become dehydrated. Dehydration can make you feel tired and thirsty, cause you to have a dry mouth, and decrease how often you urinate. Older adults and people with other diseases or a weak disease-fighting system (immune system) are at higher risk for dehydration. It is important to treat your nausea and vomiting as told by your health care provider. Follow these instructions at home: Watch your symptoms for any changes. Tell your health care provider about them. Eating and drinking ??? Take an oral rehydration solution (ORS). This is a drink that is sold at pharmacies and retail stores. ??? Drink clear fluids slowly and in small amounts as you are able. Clear fluids include water, ice chips, low-calorie sports drinks, and fruit juice that has water added (diluted fruit juice). ??? Eat bland, ebko-ke-twgfwe foods in small amounts as you are able. These foods include bananas, applesauce, rice, lean meats, toast, and crackers. ??? Avoid fluids that contain a lot of sugar or caffeine, such as energy drinks, sports drinks, and soda. ??? Avoid alcohol. ??? Avoid spicy or fatty foods. General instructions ??? Take auhu-zya-sdqurir and prescription medicines only as told by your health care provider. ??? Drink enough fluid to keep your urine pale yellow. ??? Wash your hands often using soap and water for at least 20 seconds. If soap and water are not available, use hand phytopathology teacher. ??? Make sure that everyone in your household washes their hands well and often. ??? Rest at home while you recover. ??? Watch your condition for any changes. ??? Take slow and deep breaths when you feel nauseous. ??? Keep all follow-up visits. This is important. Contact a health care provider if: ??? Your symptoms get worse. ??? You have new symptoms. ??? You have a fever. ??? You cannot drink fluids without vomiting. ??? Your nausea does not go away after 2 days. ??? You feel light-headed or dizzy. ??? You have a headache. ??? You have muscle cramps. ??? You have a rash. ??? You have pain while urinating. Get help right away if: ??? You have pain in your chest, neck, arm, or jaw. ??? You feel extremely weak or you faint. ??? You have persistent vomiting. ??? You have vomit that is bright red or looks like black coffee grounds. ??? You have bloody or black stools (feces) or stools that look like tar. ??? You have a severe headache, a stiff neck, or both. ??? You have severe pain, cramping, or bloating in your abdomen. ??? You have difficulty breathing, or you are breathing very quickly. ??? Your heart is beating very quickly. ??? Your skin feels cold and clammy. ??? You feel confused. ??? You have signs of dehydration, such as: ? Dark urine, very little urine, or no urine. ? Cracked lips. ? Dry mouth. ? Sunken eyes. ? Sleepiness. ? Weakness. These symptoms may be an emergency. Get help right away. Call 911. ??? Do not wait to see if the symptoms will go away. ??? Do not drive yourself to the hospital. Summary ??? Nausea is the feeling that you have an upset stomach or that you are about to vomit. As nausea gets worse, it can lead to vomiting. Vomiting can make you feel weak and cause you to become dehydrated. ??? Follow instructions from your health care provider about eating and drinking to prevent dehydration. ??? Take cnja-zzt-jayyzgn and prescription medicines only as told by your health care provider. ??? Contact your health care provider if your symptoms get worse, or you have new symptoms. ??? Keep all follow-up visits. This is important. This information is not intended to replace advice given to you by your health care provider. Make sure you discuss any questions you have with your health care provider. Document Revised: 09/03/2021 Document Reviewed: 09/03/2021 [employer] Patient Education ? 2023 [employer] Shortness of Breath, Adult Shortness of breath is when a person has trouble breathing or when a person feels like she or he is having trouble breathing in enough air. Shortness of breath could be a sign of a medical problem. Follow these instructions at home: Pollutants ??? Do not use any products that contain nicotine or tobacco. These products include cigarettes, chewing tobacco, and vaping devices, such as e-cigarettes. This also includes cigars and pipes. If you need help quitting, ask your health care provider. ??? Avoid things that can irritate your airways, including: ? Smoke. This includes campfire smoke, forest fire smoke, and secondhand smoke from tobacco products. Do not smoke or allow others to smoke in your home. ? Mold. ? Dust. ? Air pollution. ? Chemical fumes. ? Things that can give you an allergic reaction (allergens) if you have allergies. Common allergens include pollen from grasses or trees and animal dander. ??? Keep your living space clean and free of mold and dust. General instructions ??? Pay attention to any changes in your symptoms. ??? Take kgjc-aws-auxdaix and prescription medicines only as told by your health care provider. This includes oxygen therapy and inhaled medicines. ??? Rest as needed. ??? Return to your normal activities as told by your health care provider. Ask your health care provider what activities are safe for you. ??? Keep all follow-up visits. This is important. Contact a health care provider if: ??? Your condition does not improve as soon as expected. ??? You have a hard time doing your normal activities, even after you rest. ??? You have new symptoms. ??? You cannot walk up stairs or exercise the way that you normally do. Get help right away if: ??? Your shortness of breath gets worse. ??? You have shortness of breath when you are resting. ??? You feel light-headed or you faint. ??? You have a cough that is not controlled with medicines. ??? You cough up blood. ??? You have pain with breathing. ??? You have pain in your chest, arms, shoulders, or abdomen. ??? You have a fever. These symptoms may be an emergency. Get help right away. Call 911. ??? Do not wait to see if the symptoms will go away. ??? Do not drive yourself to the hospital. Summary ??? Shortness of breath is when a person has trouble breathing enough air. It can be a sign of a medical problem. ??? Avoid things that irritate your lungs, such as smoking, pollution, mold, and dust. ??? Pay attention to changes in your symptoms and contact your health care provider if you have a hard time completing daily activities because of shortness of breath. This information is not intended to replace advice given to you by your health care provider. Make sure you discuss any questions you have with your health care provider. Document Revised: 10/16/2021 Document Reviewed: 10/16/2021 [employer] Patient Education ? 2023 [employer] Confusion Confusion is the inability to think with your usual speed or clarity. Confusion can be caused by many things. People who are confused often describe their thinking as cloudy or unclear. Confusion can also include feeling disoriented. This means you are unaware of where you are or who you are. You may also not know the date or time. When confused, you may have trouble remembering, paying attention, or making decisions. Some people also act aggressively when they are confused. In some cases, confusion may come on quickly. In other cases, it may develop slowly over time. Confusion may be caused by medical conditions such as: ??? Infections, such as a urinary tract infection (UTI). ??? Low levels of oxygen, which can develop from conditions such as long-term lung disorders. ??? Decrease in brain function due to dementia and other conditions that affect the brain, such as seizures, strokes, brain tumors, or head injuries. ??? Mental health conditions, like panic attacks, anxiety, depression, and hallucinations. Confusion may also be caused by physical factors such as: ??? Loss of fluid (dehydration) or an imbalance of salts and minerals in the body (electrolytes). ??? Lack of certain nutrients like niacin, thiamine, or other B vitamins. ??? Fever or hypothermia, which is a sudden drop in body temperature. ??? Low or high blood sugar. ??? Low or high blood pressure. Other causes include: ??? Lack of sleep or changes in routine or surroundings, such as when traveling or staying in a hospital. ??? Using too much alcohol, drugs, or medicine. ??? Side effects of medicines, or taking medicines that affect other medicines (drug interactions). Follow these instructions at home: Pay attention to your symptoms. Tell your health care provider about any changes or if you develop new symptoms. Follow these instructions to control or treat symptoms. Ask a family member or friend for help if needed. Medicines ??? Take tdyy-jfj-juznrbc and prescription medicines only as told by your health care provider. ??? Ask your health care provider about changing or stopping any medicines that may be causing your confusion. ??? Avoid pain medicines or sleep medicines until you have fully recovered. ??? Use a pillbox or an alarm to help you take the right medicines at the right time. Lifestyle ??? Eat a balanced diet that includes fruits and vegetables. ??? Get enough sleep. For most adults, this is 7?9 hours each night. ??? Do not drink alcohol. ??? Do not become isolated. Spend time with other people and make plans for your days. ??? Do not drive until your health care provider says that it is safe to do so. ??? Do not use any products that contain nicotine or tobacco, such as cigarettes, e-cigarettes, and chewing tobacco. If you need help quitting, ask your health care provider. ??? Stop other activities that may increase your chances of getting hurt. These may include some work duties, sports activities, swimming, or bike riding. Ask your health care provider what activities are safe for you. Tips for caregivers ??? Find out if the person is confused. Ask the person to state his or her name, age, and the date. If the person is unsure or answers incorrectly, he or she may be confused and need assistance. ??? Always introduce yourself, no matter how well the person knows you. Remind the person of his or her location. ??? Place a calendar and clock near the person who is confused. Keep a regular schedule. Make sure the person has plenty of light during the day and sleep at night. ??? Talk about current events and plans for the day. ??? Keep the environment calm, quiet, and peaceful. ??? Help the person do the things that he or she is unable to do. These include: ? Taking medicines. ? Keeping medical appointments. ? Helping with household duties, including meal preparation. ? Running errands. ??? Get help if you need it. There are several support groups for caregivers. If the person you are helping needs more support, consider day care, extended-care programs, or a intermediate facility. The person's health care provider may be able to help evaluate these options. General instructions ??? Monitor yourself for any conditions you may have. These can include: ? Checking your blood glucose levels if you have diabetes. ? Maintaining a healthy weight. ? Monitoring your blood pressure if you have hypertension. ? Monitoring your body temperature if you have a fever. ??? Keep all follow-up visits. This is important. Contact a health care provider if: ??? You have new symptoms or your symptoms get worse. Get help right away if you: ??? Feel that you are not able to care for yourself. ??? Develop severe headaches, repeated vomiting, seizures, blackouts, or slurred speech. ??? Have increasing confusion, weakness, numbness, restlessness, or personality changes. ??? Develop a loss of balance, have marked dizziness, feel uncoordinated, or fall. ??? Develop severe anxiety, or you have delusions or hallucinations. These symptoms may represent a serious problem that is an emergency. Do not wait to see if the symptoms will go away. Get medical help right away. Call your local emergency services (911 in the [place] Do not drive yourself to the hospital. Summary ??? Confusion is the inability to think with your usual speed or clarity. People who are confused often describe their thinking as cloudy or unclear. ??? Confusion can also include having trouble remembering, paying attention, or making decisions. ??? Confusion may come on quickly or develop slowly over time, depending on the cause. There are many different causes of confusion. ??? Ask for help from family members or friends if you are unable to take care of yourself. This information is not intended to replace advice given to you by your health care provider. Make sure you discuss any questions you have with your health care provider. Document Revised: 06/23/2020 Document Reviewed: 06/23/2020 [employer] Patient Education ? 2023 [employer]. ANANT James KAREN G , have received the following patient education materials/instructions and have verbalized understanding: Patient Education Materials: Nausea and Vomiting, Adult; Shortness of Breath, Adult; Confusion Follow-up Instructions: With: Address: When: Dakotah Gallardo [address] [place], [place] [id number] In 3 days 04/20/2024 Comments: Return to the emergency room if your shortness of breath gets worse, fever, chest pain, confusion get worse or any new symptoms. Patient Signature Date Clinician/Nurse Signature Date 04/17/2024 16:29:33 ED CLINICAL SUMMARY Observed: 04/17/2024 4:29 PM Status: F Source: [facility] ED Clinical Summary [address] [address] ED Clinical Summary Person Information Name: MATEO [place] [facility] Age: 78 Years : 1945 Sex: Female Language: Swiss PCP: Dakotah Gallardo DO Marital Status: Visit Id: Visit Reason: Weakness or fatigue; Shortness of breath; NOT FEELING RIGHT, CONFUSION, [facility] HOME BP 179/90 Speciality: Acuity: 2 Enc Type: Emergency Med Service: Emergency Arrival: 04/17/2024 11:12:30 Discharge: 04/17/2024 16:29:20 LOS: 000 05:17 Checkin: 04/17/2024 11:12:30 Checkout: 04/17/2024 16:29:20 Dispo Type: Home (Routine DC) EVENTS: Event Name Event Status Request Date/Time Start Date/Time Complete Date/Time Arrive Complete 04/17/2024 11:12:30 04/17/2024 11:12:30 04/17/2024 11:12:30 Document Home Meds Request 04/17/2024 11:12:30 Triage Complete 04/17/2024 11:12:30 04/17/2024 11:24:55 04/17/2024 11:24:55 EKG Complete 04/17/2024 11:18:39 04/17/2024 11:22:19 Pending Labs Complete 04/17/2024 11:21:30 04/17/2024 11:21:30 04/17/2024 11:21:30 Pending Labs Request 04/17/2024 11:30:54 Lab Complete 04/17/2024 11:30:54 04/17/2024 12:41:32 X-Ray Complete 04/17/2024 11:30:54 04/17/2024 11:41:35 04/17/2024 11:52:27 Wet Read Request 04/17/2024 11:52:27 Bed Assign Complete 04/17/2024 12:11:08 04/17/2024 12:11:08 04/17/2024 12:11:08 Dr Exam Complete 04/17/2024 12:11:08 04/17/2024 12:16:18 04/17/2024 12:16:18 RN Exam Complete 04/17/2024 12:11:08 04/17/2024 12:15:55 04/17/2024 12:15:55 Fall Risk Request 04/17/2024 12:15:55 Registration Complete 04/17/2024 12:16:18 04/17/2024 12:20:12 04/17/2024 12:20:12 Pending Labs Complete 04/17/2024 12:17:59 04/17/2024 12:17:59 04/17/2024 12:41:32 Lab Complete 04/17/2024 12:17:59 04/17/2024 12:17:59 04/17/2024 12:41:32 Pending Labs Complete 04/17/2024 12:19:14 04/17/2024 12:19:14 04/17/2024 12:19:14 Reg Complete Request 04/17/2024 12:20:12 Reg Bed Request Complete 04/17/2024 12:20:12 04/17/2024 12:20:12 04/17/2024 12:20:12 CT Complete 04/17/2024 12:34:19 04/17/2024 12:40:44 04/17/2024 13:32:59 Pending Labs Complete 04/17/2024 12:34:19 04/17/2024 13:41:04 Lab Complete 04/17/2024 12:34:19 04/17/2024 13:41:04 Swab Complete 04/17/2024 12:34:19 04/17/2024 13:26:24 Meds Admin Complete 04/17/2024 12:37:23 04/17/2024 12:47:56 RT Tx/ABG Complete 04/17/2024 12:37:23 04/17/2024 13:31:37 04/17/2024 13:31:37 RT Tx/ABG Complete 04/17/2024 12:37:23 04/17/2024 13:31:31 04/17/2024 13:31:31 Meds Admin Complete 04/17/2024 13:55:53 04/17/2024 14:07:48 Discharge Complete 04/17/2024 16:00:23 04/17/2024 16:29:31 04/17/2024 16:29:31 Transfer Complete 04/17/2024 16:29:31 04/17/2024 16:29:31 04/17/2024 16:29:31 ADDRESS: [address] [place] [phone] PHYS DOC NOTES: MEDICAL INFORMATION: Prescriptions Given: Medications to Continue with No Changes Other Medications acetaminophen (Tylenol) 500 Milligram By Mouth every 6 hours. acetaminophen-oxycodone (acetaminophen-oxycodone 325 mg-5 mg Tab) 1 Tablets By Mouth 2 times a day. 30 day supply. Refills: 0. amlodipine (amLODIPine 5 mg Tab) TAKE 1 TABLET BY MOUTH EVERY DAY. Refills: 4. bisacodyl (Dulcolax Tab-EC) 2-3 tabs By Mouth every day. adjusts for constipation concerns. cyclobenzaprine (cyclobenzaprine 5 mg Tab) 1 Tablets By Mouth at bedtime. Refills: 12. diclofenac topical (diclofenac topical 1% gel) 1 Application Topical 4 times a day as needed for pain. Refills: 0. gabapentin (gabapentin 300 mg Cap) 1 Capsules By Mouth 3 times a day. Refills: 11. hydrochlorothiazide-triamterene (hydrochlorothiazide-triamterene 25 mg-37.5 mg Tab) TAKE 1 TABLET BY MOUTH EVERY DAY. Refills: 4. Misc Prescription (Handicap Placard) Expires in 5 years. Refills: 0. Misc Prescription (Misc DME Prescription) Wheelchair. Refills: 0. Misc Prescription (nebulizer supplies) nebulizer supplies dx J44.9. Refills: 11. omeprazole (omeprazole 20 mg Cap-DR) 1 Capsules By Mouth every day. Refills: 4. triamcinolone topical (triamcinolone Top 0.1% Crm 15 gram) 1 Application Topical 2 times a day. Refills: 11. PATIENT EDUCATION INFORMATION: Instructions: Nausea and Vomiting, Adult; Shortness of Breath, Adult; Confusion Follow up: With: Address: When: Dakotah Gallardo [address] [place], [place] [phone] In 3 days 04/20/2024 Comments: Return to the emergency room if your shortness of breath gets worse, fever, chest pain, confusion get worse or any new symptoms. DIAGNOSIS: 1:Confusion; 2:COPD without exacerbation; 3:Nausea & vomiting ED NOTE-PHYSICIAN Observed: 04/17/2024 4:27 PM Status: F Source: [facility] ED Note-Physician Basic Information Time Seen: Kiko Bernardo Rosmery Dorsey 04/17/2024 12:16 Chief Complaint pt. states she has not felt well since yesterday with SOB, hx COPD. weakness/fatigue. History of Present Illness The patient is a 78-year-old female past medical history of COPD, on home O2 at nighttime, stroke who presented to the emergency room with her daughter for confusion shortness of breath. The patient states for past couple of days she has been using her oxygen during the daytime. She denies any cough. Denies any fever, denies any chills. The patient denies any sore throat. She denies any nausea or vomiting. The patient states she feels like she is not herself. She states she feels weak all over. The daughter states last time when she had a stroke she had stated that she does not feel herself and she got concerned that is why she brought her. The daughter states she got some memory loss from her stroke but no weakness on the extremities. The patient denies any abdominal pain. She denies any urinary symptoms. She denies any chest pain. The patient is complaining of pain on the right upper back. The patient states she has paralyzed diaphragm on the right. The patient denies any other associated symptoms Review of Systems Additional ROS info: Except as noted in the above Review of Systems and in the History of Present Illness all other systems have been reviewed and are negative or noncontributory. Physical Exam Vitals & Measurements T: 36.5 ???C(Oral) HR: 93(Monitored) RR: 16 BP: 119/73 SpO2: 93% HT: 165 cm WT: 83.2 kg BMI: 30.56 General: alert, no acute distress Skin: warm, dry Head: no trauma, normocephalic Neck: Trachea midline, no tenderness, supple Eye: normal conjunctiva, sclera clear, PERRL, EOMI, vision unchanged ENMT: Oral mucosa moist, no pharyngeal erythema or exudate Cardiovascular: regular rate and rhythm Respiratory: Lungs decreased breath sounds right base, respirations non labored, breath sounds equal Gastrointestinal: soft, non distended, no tenderness, no guarding Extremities: no deformity, no trauma Neurological: Alert and oriented, CN II-XII intact, motor strength equal & normal bilaterally, sensation equal & normal bilaterally, speech normal, no focal neuro deficits, normal coordination Psychiatric: cooperative, affect appropriate for age, Medical Decision Making MEDICAL DECISION MAKING Number and Complexity of Problems Differential Diagnosis: [] [facility] Data External documents reviewed: [] My EKG interpretation: [] My CT interpretation: [] My X-ray interpretation: [] My Ultrasound interpretation: [] Decision rules/scores evaluated: [] Discussed with: [] Treatment and Disposition ED Course: Shortness of breath which is chronic for her. She is on oxygen at home. The patient presented with confusion. The daughter was concerned because last time when she had a stroke she told her mom that she does not feel right. There is no focal neurological deficit. The patient is alert and oriented. CT of the brain shows no acute intracranial process. Chest x-ray showed elevated right hemidiaphragm. CT of the chest without contrast was negative other than elevated right hemidiaphragm which is chronic. The patient has paralysis of the right hemidiaphragm. She was put on oxygen because her saturation was low and improved with 2 L of nasal cannula. The patient is on oxygen at home. During the emergency room stay she vomited once. She was given Zofran and her nausea improved. The vomiting improved the patient was able to tolerate p.o. Blood work reviewed and unremarkable. The patient and the daughter feel comfortable to go home. She is instructed follow-up with primary care and return to the emergency room if her symptoms get worse or any new symptoms. Shared decision making: Patient and her daughter the patient presented with Code status: [] Assessment/Plan 1. Confusion (R41.0: Disorientation, unspecified) 2. COPD without exacerbation (J44.9: Chronic obstructive pulmonary disease, unspecified) 3. Nausea & vomiting (R11.2: Nausea with vomiting, unspecified) Orders: albuterol-ipratropium, 3 mL, Soln-Inh, Inhalation, Once, Stop date 04/17/24 12:36:00 EST, STAT, Start date 04/17/24 12:36:00 EST famotidine, 20 mg = 2 mL, Soln-IV, IV Push, Once, Stop date 04/17/24 13:55:00 EST, STAT, Start date 04/17/24 13:55:00 EST, 04/17/24 13:55:00 EST ondansetron, 4 mg = 2 mL, Injection, IV, Once, Stop date 04/17/24 14:05:00 EST, Start date 04/17/24 14:05:00 EST Basic Metabolic Panel CBC w/ Auto Diff CT Chest w/o Contrast CT Head or Brain w/o Contrast eGFR Extra Blue Tube Extra SST Tube Hepatic Function Panel Influenza A&B Ag Magnesium Level Rapid COVID Antigen ([facility]) Troponin 0 Hr. Troponin 1 Hr. UA with Cult Rflx XR Chest Single View Medications Administered Given DuoNeb 2.5 mg-0.5 mg/3 mL Soln-Inh, 3 mL, Inhalation famotidine 10 mg/mL IV Lizzeth, 20 mg, IV Push [id number] [F], 4 mg, IV Disposition Plan Patient Discharge Condition Stable, Improved Discharge Disposition Discharge home Discharge Prescription List Prescriptions No active prescription medications Follow-up With When Contact Information Dakotah Gallardo In 3 days 04/20/2024 [facility] [address] [place] [address] Additional Instructions: Return to the emergency room if your shortness of breath gets worse, fever, chest pain, confusion get worse or any new symptoms. 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 Incontinence without sensory awareness Insomnia Irritable bowel syndrome with predominant constipation Lumbar radiculopathy, right Major depressive disorder, recurrent, mild Mild cognitive impairment Mixed incontinence OAB (overactive bladder) Obesity due to excess calories Other urethral stricture, female Pain of right sacroiliac joint Patient has healthcare proxy and living will Peripheral neuropathy RLS (restless legs syndrome) S/P knee replacement Severe obstructive sleep apnea Shoulder pain Somatic dysfunction of abdominal region Somatic dysfunction of cervical region Somatic dysfunction of lower extremities Somatic dysfunction of lumbar region Somatic dysfunction of rib cage region Somatic dysfunction of sacral spine Somatic dysfunction of thoracic region Spasm of lumbar paraspinous muscle Stage 3a chronic kidney disease (CKD) Stooped posture Thoracic aorta atherosclerosis Tremor Wears hearing aid in both ears Historical Abdominal pain, generalized Abnormal urinalysis Body mass index (BMI) of 31.0-31.9 in adult Bronchitis with bronchospasm Cervical radiculopathy Chest pain Dizziness WINTERS (dyspnea on exertion) Exposure to second hand smoke Frequent urination Hernia of abdominal wall History of UTI Leg edema Pain in back 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 Rib pain on right side Right hip pain Screening mammogram, encounter for Urinary urgency Procedure/Surgical History Injection of nerve root of lumbar spine using fluoroscopic guidance (12/21/2023), Injection of nerve root of sacral spine [...] Corns and callus, mole removal, Tubal ligation. Medications Inpatient No active inpatient medications Home acetaminophen-oxycodone 325 mg-5 mg Tab, 1 tab(s), Oral, BID amLODIPine 5 mg Tab, See Instructions cyclobenzaprine 5 mg Tab, 5 mg= 1 tab(s), Oral, Bedtime, 12 refills diclofenac topical 1% gel, 1 elva, Topical, QID, PRN Dulcolax Tab-EC, 2-3 tabs, Oral, Daily gabapentin 300 mg Cap, 300 mg= 1 cap(s), Oral, TID, 11 refills Handicap Placard, See Instructions hydrochlorothiazide-triamterene 25 mg-37.5 mg Tab, See Instructions Misc DME Prescription, See Instructions nebulizer supplies, See Instructions, 11 refills omeprazole 20 mg Cap-DR, 20 mg= 1 cap(s), Oral, Daily, 4 refills triamcinolone Top 0.1% Crm 15 gram, 1 elva, Topical, BID, 11 refills Tylenol, 500 mg, Oral, q6hr Allergies Chocolate (Anaphylaxis) Adhesive Bandage (Itching, Rash) [...] Previous treatment: None. Household tobacco concerns: No., 01/09/2024 Family History Alcoholism: Father. Metastatic cancer: Mother. Parkinson disease: Father. Parkinson's disease: Father. Primary malignant neoplasm of colon: Mother. Lab Results WBC: 11.5 E9/L High (04/17/24 12:06:00) RBC: 4.5 E12/L (04/17/24 12:06:00) HGB: 14.6 gm/dL (04/17/24 12:06:00) Hct: 43.7 % (04/17/24 12:06:00) MCV: 97.5 fL (04/17/24 12:06:00) MCH: 32.5 pg (04/17/24 12:06:00) MCHC: 33.4 gm/dL (04/17/24 12:06:00) RDW: 13.8 % (04/17/24 12:06:00) Platelet: 327 E9/L (04/17/24 12:06:00) MPV: 7.8 fL (04/17/24 12:06:00) Neutro Auto: 88.7 % High (04/17/24 12:06:00) Lymph Auto: 5.9 % Low (04/17/24 12:06:00) Caroline Auto: 4.5 % (04/17/24 12:06:00) Eos Auto: 0.7 % (04/17/24:06:00) Basophil Auto: 0.2 % (04/17/24 12:06:00) Neutro Absolute: 10.2 E9/L High (04/17/24 12:06:00) Lymph Absolute: 0.7 E9/L Low (04/17/24 12:06:00) Caroline Absolute: 0.5 E9/L (04/17/24 12:06:00) Eos Absolute: 0.1 E9/L (04/17/24 12:06:00) Basophil Absolute: 0 E9/L (04/17/24 12:06:00) Glucose Lvl: 102 mg/dL (04/17/24 12:06:00) BUN: 17 mg/dL (04/17/24 12:06:00) Creatinine: 0.7 mg/dL (04/17/24 12:06:00) eGFR: 88 mL/min/1.73 m2 (04/17/24 12:06:00) BUN/Creat Ratio: 24 High (04/17/24 12:06:00) Sodium Lvl: 140 mmol/L (04/17/24 12:06:00) Potassium Lvl: 3.5 mmol/L (04/17/24 12:06:00) Chloride: 99 mmol/L Low (04/17/24 12:06:00) CO2: 31 mmol/L (04/17/24 12:06:00) AGAP: 14 mEq/L (04/17/24 12:06:00) Calcium Lvl: 9.6 mg/dL (04/17/24 12:06:00) Alk Phos: 67 Int._Unit/L (04/17/24 13:09:00) ALT: 23 Int._Unit/L (04/17/24 13:09:00) AST: 24 Int._Unit/L (04/17/24 13:09:00) Total Protein: 8.3 gm/dL High (04/17/24 13:09:00) Albumin Lvl: 4.6 gm/dL (04/17/24 13:09:00) Globulin: 3.7 gm/dL (04/17/24 13:09:00) A/G Ratio: 1.2 (04/17/24 13:09:00) Bili Total: 0.6 mg/dL (04/17/24 13:09:00) Bili Direct: 0.1 mg/dL (04/17/24 13:09:00) Bili Indirect: 0.5 mg/dL (04/17/24 13:09:00) Magnesium: 2 mg/dL (04/17/24 13:09:00) Troponin HS: 7.3 pg/mL Low (04/17/24 13:09:00) Glucose Cap: 112 mg/dL High (04/17/24 11:20:00) POC Device SN: [id number] (04/17/24 11:20:00) POC User ID: [id number] (04/17/24 11:20:00) POC Username: VANDANA, CESAR (04/17/24 11:20:00) Influenzae A Ag: NEGATIVE1 (04/17/24 13:03:00) Influenzae B Ag: NEGATIVE1 (04/17/24 13:03:00) Rapid COVID Ag: Not Detected (04/17/24 13:03:00) Rapid COV Int NEG Ctl: Pass (04/17/24 13:03:00) Rapid COV Int POS Ctl: Pass (04/17/24 13:03:00) Diagnostic Results (04/17/2024 11:52 EST XR Chest Single View) * Final Report * Reason For Exam Shortness of breath (SOB) POWERSCRIBE REPORT IMPRESSION: Elevation of the right hemidiaphragm with opacity/atelectasis at the right lung base, similar to prior. Opacity versus atelectasis left lung base. EXAMINATION/TECHNIQUE: XR Chest Single View HISTORY: Shortness of breath. COMPARISON: 08/18/2022. RESULT: Elevation of the right hemidiaphragm with opacity/atelectasis at the right lung base, similar to prior. Opacity versus atelectasis left lung base. No large pleural effusion. No pneumothorax. Stable cardiomediastinal silhouette. Aortic vascular calcifications. No acute osseous findings. Degenerative changes. Ordering Provider: Rosmery Hoover Signature Line FINAL REPORT Dictated: 04/17/2024 11:53 am Drake Cadena MD Signed (Electronic Signature): 04/17/2024 11:53 am Signed by: Drake Cadena MD Transcribed by: CAROLYN Technologist: JUAN C RAD REPORT This document has an image Result type: XR Chest Single View Result date: April 17, 2024 11:52 EST Result status: Auth (Verified) Result title: XR Chest Single View Performed by: Drake Cadena MD on April 17, 2024 11:53 EST Verified by: Drake Cadena MD on April 17, 2024 11:53 EST Encounter info: [id number], [facility], Emergency, 04/17/2024 - (04/17/2024 13:[address] Head or Brain w/o Contrast) * Final Report * Reason For Exam Altered mental status POWERSCRIBE REPORT IMPRESSION: No acute intracranial process. Chronic findings, similar to prior. HISTORY: Altered mental status. TECHNIQUE: Serial axial images without IV contrast were obtained from the vertex to the foramen magnum, with sagittal and coronal reconstructions. All CT scans at this facility use dose modulation, iterative reconstruction, and/or weight based dosing when appropriate to reduce radiation dose to as low as reasonably achievable. COMPARISON: CT 11/08/2020. RESULT: Acute change: No evidence of an acute infarct or other acute parenchymal process. Hemorrhage: No evidence of acute intracranial hemorrhage. Mass Lesion / Mass Effect: There is no evidence of an intracranial mass or extraaxial fluid collection. No significant mass effect. Chronic change: Scattered patchy foci of decreased attenuation within supratentorial white matter which is a nonspecific finding but likely represents mild to moderate microvascular ischemia. Remote lacunar infarcts in the right frontal lobe, left frontal lobe, and basal ganglia, grossly unchanged. Vascular calcifications. Parenchyma: There is mild generalized volume loss. Ventricles: Unchanged. Paranasal sinuses and skull base: The visualized paranasal sinuses are grossly clear. Mastoid air cells clear. The skull base is unremarkable. Soft tissues unremarkable. Ordering Provider: Rosmery Hoover Signature Line FINAL REPORT Dictated: 04/17/2024 1:40 pm Drake Cadena MD Signed (Electronic Signature): 04/17/2024 1:40 pm Signed by: Drake Cadena MD Transcribed by: CAROLYN Technologist: ZENA RAD REPORT This document has an image Result type: CT Head or Brain w/o Contrast Result date: April 17, 2024 13:32 EST Result status: Auth (Verified) Result title: CT Head or Brain w/o Contrast Performed by: Drake Cadena MD on April 17, 2024 13:40 EST Verified by: Drake Cadena MD on April 17, 2024 13:40 EST Encounter info: [id number], [facility], Emergency, 04/17/2024 - (04/17/2024 13:[address] Chest w/o Contrast) * Final Report * Reason For Exam Shortness of breath (SOB) POWERSCRIBE REPORT IMPRESSION: No acute process in the thorax. HISTORY: Shortness of breath. TECHNIQUE: Spiral CT acquisition of the chest from the thoracic inlet to the upper abdomen without contrast. Dedicated sagittal and coronal reconstructions. Unless otherwise stated, incidental findings identified in this report do not require routine follow-up imaging. Lung nodule guidelines given in this report are based on the nodule size and patient's risk factors per Fleischner Society guidelines. All CT scans at this facility use dose modulation, iterative reconstruction, and/or weight based dosing when appropriate to reduce radiation dose to as low as reasonably achievable. COMPARISON: 09/29/2021. RESULT: Lung parenchyma and pleura: Central airways grossly patent. Chronic elevation right hemidiaphragm with atelectasis/scarring at the right lung base, unchanged. Scarring/atelectasis left lung base. No consolidative opacity. No pleural effusion. No pneumothorax. No suspicious lung nodules. Thoracic inlet, heart, and mediastinum: Visualized thyroid unremarkable. No axillary, mediastinal, or hilar lymphadenopathy. Mild to moderate thoracic aorta atherosclerotic calcifications without aneurysm. Normal pulmonary artery size. Stable heart size. Coronary calcifications, aortic root calcification, and mitral annular calcification, unchanged. No pericardial effusion or thickening. Esophagus nondilated. Bones: No acute osseous findings. No destructive osseous lesions. Multilevel degenerative changes within the spine. Soft tissues: Unremarkable. Upper abdomen: No acute abnormality in the imaged upper abdomen. Ordering Provider: Rosmery Hoover Signature Line FINAL REPORT Dictated: 04/17/2024 1:44 pm Drake Cadena MD Signed (Electronic Signature): 04/17/2024 1:44 pm Signed by: Drake Cadena MD Transcribed by: CAROLYN Technologist: ZENA RAD REPORT This document has an image Result type: CT Chest w/o Contrast Result date: April 17, 2024 13:32 EST Result status: Auth (Verified) Result title: CT Chest w/o Contrast Performed by: Drake Cadena MD on April 17, 2024 13:44 EST Verified by: Drake Cadena MD on April 17, 2024 13:44 EST Encounter info: [id number], [facility], Emergency, 04/17/2024 - [1] EKG Results EC04/17/24: SINUS RHYTHM WITH SINUS ARRHYTHMIA LOW QRS VOLTAGE IN PRECORDIAL LEADS [QRS DEFLECTION < 1.0 mV IN CHEST LEADS] Rate 86 BPM BORDERLINE ECG Signed By: Rosmery Hoover M.D. 04/17/2024 12:15:19 [1] CT Chest w/o Contrast; Drake Cadena MD 04/17/2024 13:32 EST Result Comment: Electronical ly Signed By: Rosmery Hoover M.D.\.br\Date and Time Signed: 04/17/24 16:32 EST HEP FUNC PANEL Collected: 04/17/2024 1:09 PM Status: F Source: [facility] TYPE CODE TESTS RESULT OUT OF RANGE REFERENCE UNITS LAB 1744-2(LOINC) ALANINE AMINOTRANSFERA SE:CCNC:PT:SER /PLAS:QN:NO ADDITION OF P-5'-P 23 Normal 6-46 Int._Unit /L LAB 1920-8(LOINC) ASPARTATE AMINOTRANSFERA SE:CCNC:PT:SER /PLAS:QN: 24 Normal 5-43 Int._Unit /L LAB 1751-7([facility]) ALBUMIN:MCNC:P T:SER/PLAS:QN: 4.6 Normal 3.3-5.0 gm/dL LAB 63782-4([facility]) GLOBULIN:MCNC: PT:SER:QN:CALC ULATED 3.7 Normal 1.4-4.0 gm/dL LAB 51416-8([facility]) ALBUMIN/GLOBUL IN:MCRTO:PT:SE R:QN: 1.2 Normal 1.1-2.2 LAB 6768-6([facility]) ALKALINE PHOSPHATASE:CC NC:PT:SER/PLAS :QN: 67 Normal 21-98 Int._Unit /L LAB 1968-7([facility]) BILIRUBIN.GLUC URONIDATED+KIM IRUBIN.ALBUMIN BOUND:MCNC:PT: SER/PLAS:QN: 0.1 Normal 0.0-0.4 mg/dL LAB 36640-4([facility]) BILIRUBIN.NON- GLUCURONIDATED :MSCNC:PT:SER/ PLAS:QN: 0.5 Normal 0.1-0.9 mg/dL LAB 1975-2([facility]) BILIRUBIN:MCNC :PT:SER/PLAS:Q N: 0.6 Normal 0.0-1.1 mg/dL LAB 2885-2([facility]) PROTEIN:MCNC:P T:SER/PLAS:QN: 8.3 High 6.0-7.8 gm/dL Performed By: #### [id number] # ### [facility] [address] [place] [address] TROPONIN 1 HR. Collected: 5 1:09 PM Status: F Source: [facility] TYPE CODE TESTS RESULT OUT OF RANGE REFERENCE UNITS LAB 22366288([facility]) Troponin HS 7.30 Low 10.10-27.10 pg/mL Result Comment: The 95% CI ( Confidence Interval) PPV (Positive Predictive Value) for myocardial infarction in females is 38 pg/mL, in males 51 pg/mL. The results should be used in conjunction with clinical conditions of myocardial infarction. (Access High Sensitivity Troponin I Instructions For Use, Swathi Scott, October 2017) Performed By: #### [id number] #### [facility] [address] [place] [address] MAGNESIUM Collected: 04/17/2024 1:09 PM Status: F Source: [facility] TYPE CODE TESTS RESULT OUT OF RANGE REFERENCE UNITS LAB 96328-9([facility]) MAGNESIUM:MCN C:PT:SER/PLAS :QN: 2.0 Normal 1.3-2.4 mg/dL Performed By: #### [id number] # ### [facility] [address] [place] [address] CT CHEST W/O CONTRAST Observed: 04/17/19 1:03 PM Status: F Source: [facility] Exam Date/Time: 04/17/2024 13:32 EST Reason for Exam: Shortness of breath (SOB) Report IMPRESSION: No acute process in the thorax. HISTORY: Shortness of breath. TECHNIQUE: Spiral CT acquisition of the chest from the thoracic inlet to the upper abdomen without contrast. Dedicated sagittal and coronal reconstructions. Unless otherwise stated, incidental findings identified in this report do not require routine follow-up imaging. Lung nodule guidelines given in this report are based on the nodule size and patient's risk factors per Fleischner Society guidelines. All CT scans at this facility use dose modulation, iterative reconstruction, and/or weight based dosing when appropriate to reduce radiation dose to as low as reasonably achievable. COMPARISON: 09/29/2021. RESULT: Lung parenchyma and pleura: Central airways grossly patent. Chronic elevation right hemidiaphragm with atelectasis/scarring at the right lung base, unchanged. Scarring/atelectasis left lung base. No consolidative opacity. No pleural effusion. No pneumothorax. No suspicious lung nodules. Thoracic inlet, heart, and mediastinum: Visualized thyroid unremarkable. No axillary, mediastinal, or hilar lymphadenopathy. Mild to moderate thoracic aorta atherosclerotic calcifications without aneurysm. Normal pulmonary artery size. Stable heart size. Coronary calcifications, aortic root calcification, and mitral annular calcification, unchanged. No pericardial effusion or thickening. Esophagus nondilated. Bones: No acute osseous findings. No destructive osseous lesions. Multilevel degenerative changes within the spine. Soft tissues: Unremarkable. Upper abdomen: No acute abnormality in the imaged upper abdomen. Ordering Provider: Rosmery Hoover FINAL REPORT Dictated: 04/17/2024 1:44 pm Drake Cadena MD Signed (Electronic Signature): 04/17/2024 1:44 pm Signed by: Drake Cadena MD Transcribed by: CAROLYN Technologist: ZENA CT HEAD OR BRAIN W/O CONTRAST Observed: 04/17/2024 1:03 PM Status: F Source: [facility] Exam Date/Time: 04/17/2024 13:32 EST Reason for Exam: Altered mental status Report IMPRESSION: No acute intracranial process. Chronic findings, similar to prior. HISTORY: Altered mental status. TECHNIQUE: Serial axial images without IV contrast were obtained from the vertex to the foramen magnum, with sagittal and coronal reconstructions. All CT scans at this facility use dose modulation, iterative reconstruction, and/or weight based dosing when appropriate to reduce radiation dose to as low as reasonably achievable. COMPARISON: CT 11/08/2020. RESULT: Acute change: No evidence of an acute infarct or other acute parenchymal process. Hemorrhage: No evidence of acute intracranial hemorrhage. Mass Lesion / Mass Effect: There is no evidence of an intracranial mass or extraaxial fluid collection. No significant mass effect. Chronic change: Scattered patchy foci of decreased attenuation within supratentorial white matter which is a nonspecific finding but likely represents mild to moderate microvascular ischemia. Remote lacunar infarcts in the right frontal lobe, left frontal lobe, and basal ganglia, grossly unchanged. Vascular calcifications. Parenchyma: There is mild generalized volume loss. Ventricles: Unchanged. Paranasal sinuses and skull base: The visualized paranasal sinuses are grossly clear. Mastoid air cells clear. The skull base is unremarkable. Soft tissues unremarkable. Ordering Provider: Rosmery Hoover FINAL REPORT Dictated: 04/17/2024 1:40 pm Drake Cadena MD Signed (Electronic Signature): 04/17/2024 1:40 pm Signed by: Drake Cadena MD Transcribed by: CAROLYN Technologist: ZENA RAPID COVID ANTIGEN (MC) Collected: 0 04/17/2024 1:03 PM Status: F Source: [facility] TYPE CODE TESTS RESULT OUT OF RANGE REFERENCE UNITS LAB 90612-2([facility]) SARS CORONAVIRUS+SA RS CORONAVIRUS 2 AG:PRTHR:PT:RE SPIRATORY SYSTEM SPECIMEN:ORD:I A.RAPID Not Detected Normal Not Detected Result Comment: The BD Verit or??? System for Rapid Detection of SARS-CoV-2 is a chromatographic digital immunoassay intended for the direct and qualitative detection of SARS-CoV-2 nucleocapsid antigens in nasal swabs from individuals who are suspected of COVID-19 by their healthcare provider within the first five days of the onset of symptoms. Negative results should be treated as presumptive, do not rule out SARS-CoV-2 infection and should not be used as the sole basis for treatment or patient management decisions, including infection control decisions. Negative results should be considered in the context of a patient???s recent exposures, history and the presence of clinical signs and symptoms consistent with COVID-19, and confirmed with a molecular assay, if necessary, for patient management. For in vitro diagnostic use. In the [place], only for use under an Emergency Use Authorization. In the [place], this test has not been FDA cleared or approved; this test has been authorized by FDA under an EUA for use by authorized laboratories; use by laboratories certified under the CLIA, 42 U.S.C. ???263a, that meet requirements to perform moderate, high, or waived complexity tests and at the Point of Care (POC), i.e., in patient care settings operating under a CLIA Certificate of Waiver, Certificate of Compliance, or Certificate of Accreditation. This test has been authorized only for the detection of proteins from SARS-CoV-2, not for any other viruses or pathogens; and, in the [facility], this test is only authorized for the duration of the declaration that circumstances exist justifying the authorization of emergency use of in vitro diagnostics for detection and/or diagnosis of the virus that causes COVID-19 under Section 564(b)(1) of the Act, 21 U.S.C. ??? 360bbb-3(b)(1), unless the authorization is terminated or revoked sooner. LAB CD:[id number]( [facility]) Rapid COV Int POS Ctl Pass Normal LAB CD:[id number]( [facility]) Rapid COV Int NEG Ctl Pass Normal Performed By: #### [id number] #### [facility] [address] [place] [address] INFLUENZA A&B AG Collected: 04/17/2024 1:03 PM Statu s: F Source: [facility] TYPE CODE TESTS RESULT OUT OF RANGE REFERENCE UNITS LAB [id number]([facility]) Influenzae A Ag NEGATIVE Normal Negativ e LAB 81719206([facility]) Influenzae B Ag NEGATIVE Normal Negativ e Result Comment: Test sensiti vity and specificity vary for age group, specimen type, antigen types, and prevalence of disease. Test results must be evaluated in conjunction with other clinical data available to the physician. Individuals who received nasally administered Influenza A vaccine may have positive test results up to 3 days after vaccination. Performed By: #### [id number] #### [facility] [address] [place] [address] CBC W/ AUTO DIFF Collected: 04/17/2024 12:06 PM Stat us: F Source: [facility] TYPE CODE TESTS RESULT OUT OF RANGE REFERENCE UNITS LAB 83029-5([facility]) LEUKOCYTES^^BHAVANI ECTED FOR NUCLEATED ERYTHROCYTES:NCN C:PT:BLD:QN:AUTO MATED COUNT 11.5 High 4.0-11.0 E9/L LAB 789-8([facility]) ERYTHROCYTES:NCN C:PT:BLD:QN:AUTO MATED COUNT 4.5 Normal 4.3-5.9 E12/L LAB 718-7([facility]) HEMOGLOBIN:MCNC: PT:BLD:QN: 14.6 Normal 12.0-16.0 gm/dL LAB 4544-3([facility]) HEMATOCRIT:VFR:P T:BLD:QN:AUTOMAT ED COUNT 43.7 Normal 34.0-46.0 % LAB 788-0([facility]) ERYTHROCYTE DISTRIBUTION WIDTH:RATIO:PT:R BC:QN:AUTOMATED COUNT 13.8 Normal 10.9-14.2 % LAB 785-6(LOINC) ERYTHROCYTE MEAN CORPUSCULAR HEMOGLOBIN:ENTMA SS:PT:RBC:QN:AUT OMATED COUNT 32.5 Normal 27.0-34.0 pg LAB 786-4(LOINC) ERYTHROCYTE MEAN CORPUSCULAR HEMOGLOBIN CONCENTRATION:MC NC:PT:RBC:QN:AUT OMATED COUNT 33.4 Normal 31.4-36.0 gm/dL LAB 787-2(LOINC) ERYTHROCYTE MEAN CORPUSCULAR VOLUME:ENTVOL:PT :RBC:QN:AUTOMATE D COUNT 97.5 Normal 80.0-100.0 fL LAB 95651-2([facility]) PLATELET MEAN VOLUME:ENTVOL:PT :BLD:QN:AUTOMATE D COUNT 7.8 Normal 6.4-10.8 fL LAB [id number]([facility]) Platelet 327.0 Normal 150.0-500.0 E9/ L LAB 68742-7([facility]) NEUTROPHILS/100 LEUKOCYTES:NFR:P T:BLD:QN: 88.7 High 36.0-75.0 % LAB 731-0([facility]) LYMPHOCYTES:NCNC :PT:BLD:QN:AUTOM ATED COUNT 5.9 Low 14.0-50.0 % LAB 742-7(INC) MONOCYTES:NCNC:P T:BLD:QN:AUTOMAT ED COUNT 0.5 Normal 0.2-1.0 E9/L LAB 713-8([facility]) EOSINOPHILS/100 LEUKOCYTES:NFR:P T:BLD:QN:AUTOMAT ED COUNT 0.7 Normal 0.0-8.0 % LAB 704-7([facility]) BASOPHILS:NCNC:P T:BLD:QN:AUTOMAT ED COUNT 0.2 Normal 0.0-2.0 % LAB 751-8([facility]) NEUTROPHILS:NCNC :PT:BLD:QN:AUTOM ATED COUNT 10.2 High 2.0-7.5 E9/L LAB 85570-9([facility]) LYMPHOCYTES:NCNC :PT:BLD:QN: 0.7 Low 1.0-4.0 E9/L LAB 97536-0([facility]) EOSINOPHILS:NCNC :PT:BLD:QN: 0.1 Normal 0.0-0.5 E9/L LAB 25514-9([facility]) BASOPHILS/LEUKOC YTES:NFR.DF:PT:B LD:QN:AUTOMATED COUNT 0.0 Normal 0.0-0.2 E9/L Performed By: #### [id number] # ### [facility] [address] [place] [address] EGFR Collected: 5 12:06 PM Status: F Source: [facility] TYPE CODE TESTS RESULT OUT OF RANGE REFERENCE UNITS LAB [id number]([facility]) eGFR 88 Normal >=59 mL/min/1 .7 3 m2 Performed By: #### [id number] #### [facility] [address] [place] [address] EXTRA BLUE Collected: 5 12:06 PM Status: F Source: [facility] TYPE CODE TESTS RESULT OUT OF RANGE REFERENCE UNITS LAB CD:[id number](L [facility]) Tube Collected Plasma Yes Unknown Performed By: #### [id number] #### [facility] [address] [place] [address] BMP Collected: 5 12:06 PM Status: F Source: [facility] TYPE CODE TESTS RESULT OUT OF RANGE REFERENCE UNITS LAB 2345-7([facility]) GLUCOSE:MCNC :PT:SER/PLAS :QN: 102 Normal 55-199 mg/dL LAB 3094-0([facility]) UREA NITROGEN:MCN C:PT:SER/FRANKIE S:QN: 17 Normal 5-21 mg/dL LAB 2160-0([facility]) CREATININE:M CNC:PT:SER/P LAS:QN: 0.7 Normal 0.5-1.3 mg/dL LAB 3097-3([facility]) UREA NITROGEN/CRE ATININE:MRTO :PT:SER/PLAS :QN: 24 High 10-20 No Units LAB 65459-7([facility]) CALCIUM:MCNC :PT:SER/PLAS :QN: 9.6 Normal 8.9-11.1 mg/dL LAB 2951-2([facility]) SODIUM:SCNC: PT:SER/PLAS: QN: 140 Normal 135-145 mmol/L LAB 2823-3([facility]) POTASSIUM:SC NC:PT:SER/PL :QN: 3.5 Normal 3.5-5.3 mmol/L LAB 2075-0([facility]) CHLORIDE:SCN C:PT:SER/FRANKIE S:QN: 99 Low 101-111 mmol/L LAB 8-9([facility]) CARBON DIOXIDE:SCNC :PT:SER/PLAS :QN: 31 Normal 21-31 mmol/L LAB 75548-3([facility]) ANION GAP:SCNC:PT: SER/PLAS:QN: 14 Normal 6-16 mEq/L Performed By: #### [id number] # ### [facility] [address] [place] [address] TROPONIN 0 HR. Collected: 12:06 PM Status: F Source: [facility] TYPE CODE TESTS RESULT OUT OF RANGE REFERENCE UNITS LAB 63438179([facility]) Troponin HS 6.70 Low 10.10-27.10 pg/mL Result Comment: The 95% CI ( Confidence Interval) PPV (Positive Predictive Value) for myocardial infarction in females is 38 pg/mL, in males 51 pg/mL. The results should be used in conjunction with clinical conditions of myocardial infarction. (Access High Sensitivity Troponin I Instructions For Use, [employer], October 2017) Performed By: #### [id number] #### [facility] [address] [place] [address] XR CHEST SINGLE VIEW Observed: 11:44 AM Status: F Source: [facility] Exam Date/Time: 04/17/2024 11:52 EST Reason for Exam: Shortness of breath (SOB) Report IMPRESSION: Elevation of the right hemidiaphragm with opacity/atelectasis at the right lung base, similar to prior. Opacity versus atelectasis left lung base. EXAMINATION/TECHNIQUE: XR Chest Single View HISTORY: Shortness of breath. COMPARISON: 08/18/2022. RESULT: Elevation of the right hemidiaphragm with opacity/atelectasis at the right lung base, similar to prior. Opacity versus atelectasis left lung base. No large pleural effusion. No pneumothorax. Stable cardiomediastinal silhouette. Aortic vascular calcifications. No acute osseous findings. Degenerative changes. Ordering Provider: Rosmery Hoover FINAL REPORT Dictated: 04/17/2024 11:53 am Drake Cadena MD Signed (Electronic Signature): 04/17/2024 11:53 am Signed by: Drake Cadena MD Transcribed by: CAROLYN Technologist: JUAN C CAPILLARY GLUCOSE POC Collected: 2024 11:20 AM Status: F Source: [facility] TYPE CODE TESTS RESULT OUT OF RANGE REFERENCE UNITS LAB 2340-8([facility]) GLUCOSE:MCNC: PT:BLD:SEMIQN :TEST STRIP.AUTOMAT ED 112 High 55-99 mg/dL Result Comment: Notified RN/ MD Performed By: #### [id number] #### [facility] [address] [place] [address] AMBULATORY VISIT SUMMARY Observed: 04/09 10:06 AM Status: F Source: [facility] Ambulatory Visit Summary [place] :1945 Visit Date:04/09/2024 Ambulatory Visit Instructions Your Diagnosis Chronic low back pain DDD (degenerative disc disease), cervical Spasm of lumbar paraspinous muscle Abdominal weakness Elevated diaphragm Insomnia Somatic dysfunction of cervical region Somatic dysfunction of thoracic region Somatic dysfunction of lumbar region Somatic dysfunction of sacral spine Somatic dysfunction of abdominal region Stage 3a chronic kidney disease (CKD) Emphysema/COPD Chronic respiratory failure with hypoxia HTN (hypertension) RLS (restless legs syndrome) Frozen shoulder Wears hearing aid in both ears History of stroke Stooped posture Somatic dysfunction of lower extremities Adult BMI 29.0-29.9 kg/sq m Other chronic pain These Are Your Goals Reduce exacerbations of [...] shaker. - Progressing Keep appointment with Dr. Sifuentes on 10/13/20 at 0920 - Done Keep [...] Prescription) Misc Prescription (nebulizer supplies) acetaminophen (Tylenol) acetaminophen-oxycodone (acetaminophen-oxycodone 325 mg-5 mg Tab) amlodipine (amLODIPine 5 mg Tab) bisacodyl (Dulcolax Tab-EC) cyclobenzaprine (cyclobenzaprine 5 mg Tab) diclofenac topical (diclofenac topical 1% gel) gabapentin (gabapentin 300 mg Cap) hydrochlorothiazide-triamterene (Maxzide-25 oral tablet) omeprazole (omeprazole 20 mg Cap-DR) triamcinolone topical (triamcinolone Top 0.1% Crm 15 gram) Procedures Performed Injection of nerve root of lumbar spine using fluoroscopic guidance (12/21/2023), Injection of nerve root of sacral spine [...] Tubal ligation. Discharge Vitals Heart Rate (Peripheral) 80 Blood Pressure 114/66 Height 168 cm Height 66 in Weight 83.2 kg Weight 183.424 lb BMI 29.48 What to do next Scheduled Follow-Up Appointments Monday 11:00 AM EST Where: [facility] [address] [place] [address]- Medications What How Much When Why Instructions Unchanged acetaminophen (Tylenol) 500 Milligram By Mouth Every 6 hours Unchanged acetaminophen-oxycodone (acetaminophen-oxycodone 325 mg-5 mg Tab) 1 Tablets By Mouth 2 times a day Lumbar radiculopathy, right Polyneuropathy Acute low back pain with sciatica 30 day supply Unchanged amlodipine (amLODIPine 5 mg Tab) 1 Tablets By Mouth Every day Unchanged bisacodyl (Dulcolax Tab-EC) 2-3 tabs By Mouth Every day adjusts for constipation concerns Unchanged cyclobenzaprine (cyclobenzaprine 5 mg Tab) 1 Tablets By Mouth At bedtime Spasm of lumbar paraspinous muscle Unchanged diclofenac topical (diclofenac topical 1% gel) 1 Application Topical 4 times a day as needed for for pain Left shoulder pain Unchanged gabapentin (gabapentin 300 mg Cap) 1 Capsules By Mouth 3 times a day RLS (restless legs syndrome) Unchanged hydrochlorothiazide-triamterene (Maxzide-25 oral tablet) 1 Tablets By Mouth Every day Unchanged Misc Prescription (Handicap Placard) See instructions Expires in 5 years Unchanged Misc Prescription (Misc DME Prescription) See instructions Wheelchair Unchanged Misc Prescription (nebulizer supplies) See instructions nebulizer supplies dx J44.9 Unchanged omeprazole (omeprazole 20 mg Cap-DR) 1 Capsules By Mouth Every day Chronic GERD Unchanged triamcinolone topical (triamcinolone Top 0.1% Crm 15 gram) 1 Application Topical 2 times a day Allergies Chocolate (Anaphylaxis) Adhesive Bandage (Itching, Rash) aspirin (Nausea) iodinated radiocontrast dyes (hives, Unknown) penicillins (Itching, Rash) sulfamethoxazole (Swelling) Problems Ongoing - Any problem that you are currently receiving treatment for. 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 Incontinence without sensory awareness Insomnia Irritable bowel syndrome with predominant constipation Lumbar radiculopathy, right Major depressive disorder, recurrent, mild Mild cognitive impairment Mixed incontinence OAB (overactive bladder) Obesity due to excess calories Other urethral stricture, female Pain of right sacroiliac joint Patient has healthcare proxy and living will Peripheral neuropathy RLS (restless legs syndrome) S/P knee replacement Severe obstructive sleep apnea Shoulder pain Somatic dysfunction of abdominal region Somatic dysfunction of cervical region Somatic dysfunction of lower extremities Somatic dysfunction of lumbar region Somatic dysfunction of rib cage region Somatic dysfunction of sacral spine Somatic dysfunction of thoracic region Spasm of lumbar paraspinous muscle Stage 3a chronic kidney disease (CKD) Stooped posture Thoracic aorta atherosclerosis Tremor Wears hearing aid in both ears Historical - Any problem that you are no longer receiving treatment for. Abdominal pain, generalized Abnormal urinalysis Body mass index (BMI) of 31.0-31.9 in adult Bronchitis with bronchospasm Cervical radiculopathy Chest pain Dizziness WINTERS (dyspnea on exertion) Exposure to second hand smoke Frequent urination Hernia of abdominal wall History of UTI Leg edema Pain in back 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 Rib pain on right side Right hip pain Screening mammogram, encounter for Urinary urgency Patient Survey You may receive a survey via text or e-mail asking about your office visit. Please share your experience with us by completing your survey. We appreciate your feedback and thank you for choosing us for your care. FAMILY MEDICINE OFFICE/CLINI C NOTE Observed: 04/09/2024 10:05 AM Status: F Source: [facility] Family Medicine Office/Clini c Note Chief Complaint Back and leg pain HPI Staff Patient here today for Shoulder and leg pain/OMT JOE 03/05/24 Labs 03/31/23 Patient states her right backside above hip line is painful and going down leg. Patient states she is not taking her Oxycodone due to constipation. She also not wearing hearing aids any longer due to battery all the time History of Present Illness 78 Years old Female here to f/u for Neck and LOW BACK PAIN Social: The patient is a ; her passed in 1990 The patient is retired from [employer] The patient has 6 children; 5 living 18 grandchildren 1 great grand baby List of providers Pain management - Dr. Ez Fletcher Urologist - _ HPI staff / Chief Complaint confirmed with the patient Today, the patient reports their symptoms are PRESENT and is requesting OMT. Based on their report of symptoms and my exam findings, I believe OMT is appropriate today. The patient expresses consent for manipulation today. The patient is aware that a student may be present during treatment. At her last appt, was having increasing bilat shoulder pain; worse on the left Has been using her shoulders less due to the pain Today, the patient describes mid back pain - 6-7/10 At worst, low back pain is 7-8 out of 10 At best, low back pain is 3 out of 10 Described as dull ache along the belt line The patient describes minimal radiation down the legs OMT seems to help with rib pain and breathing pain management had suggested IA injections to the shoulder - hasn't proceeded with this yet taking 1/2 pain pill a few times a day when pain is increased Neck pain/ trap pain is chronic in nature with varying intensity Described as occasionally sharp on the right side The patient does not have symptoms that radiate down her arms Strength in the upper extremities is not affected Has started PT, recommended by Pain Management (shoulder) *discussed dry needling struggling to stand up on her own Mar 08, 2024 - message URI symptoms - take the prednisone for COPD exacerbation From last note: (tagged below) PHYSICAL EXAM Constitutional: Vital signs reviewed; this patient is well nourished, no acute distress Lungs: Clear to auscultation, non-labored respiration - expansion is symmetric Heart: Normal rate and rhythm, normal peripheral perfusion ABD: bowel sounds in all four quadrants, not tympanic - some tenderness around her hernia - mild MSK: Gait is slow shuffling gait with stooped posture SI joint is tender on the right Lumbar paraspinal muscle tight/tender bilaterally; worse on the left Core muscles are sub-optimal in tension at rest - reducible midline hernia - sub-xyphoid Skin: Warm, dry Neurologic: Awake, alert and oriented Psychiatric: Cooperative, perhaps depressed Procedure documentation - Osteopathic Manipulation: Thoracic Spine: Chronic and acute tissue texture changes of the trapezius, rhomboid BILAT; worse on the left - treated with myofascial, BLT and FPR - with objective and subjective improvement Lumbar Spine: Lumbar paraspinal restriction on the BILAT; worse on the left - treated with myofascial, BLT and FPR - with objective and subjective improvement Sacral: SI dysfunction on the BILAT; worse on the left - treated with BLT and FPR - with objective and subjective improvement Lower Extremity: Psoas restriction and tenderness on the left, and fibular head dysfunction and lateral gastroc restriction on the left - treated with BLT and FPR - with objective and subjective improvement Rib: exhalation dysfunction of rib 7 on the left - treated with rib raising and BLT - with objective and subjective improvement Abdomen: Diaphragm restriction bilat - worse on the right - treated with inhibition to the diaphragm - with objective and subjective improvement PLAN: [...] symptoms of fever, chills, night sweats. 2. Neck pain (M54.2) Acute on Chronic NO recent trauma There are no neurologic symptoms or signs that raise concern for cord compression no - lower extremity weakness no - gait or coordination difficulties no - bladder or bowel dysfunction no - Lhermitte???s sign (electric or shock-like sensations that run down the back and/or limbs upon flexion or the neck) *if positive, cervical spondylotic myelopathy NO OTHER obvious red flag signs Discussed the role of anti-inflammatory medication taking either PRN or consistently Discussed the role of anti-spasm medications especially in patients who have headaches regularly F/u 1 month or PRN 3. Spasm of lumbar paraspinous muscle (M62.830), Spasm of thoracic paraspinal muscle (M62.830), Cervical paraspinal muscle spasm (M62.838) Acute on chronic Likely contributing to the above Etiology is likely a combination of sub-optimal mechanics, muscle imbalance, posture vs other Discussed with the patient today about the importance of optimizing function and mechanics Emphasis placed on improving posture and trunk strength, stability Improved with OMM F/u 1 month 4. Spasm of the trapezius muscle (M62.838) Acute on chronic Likely contributing to the above Etiology is likely a combination of sub-optimal mechanics, muscle imbalance, posture vs other Recommend that the patient work on postural exercises Improved with OMM today F/u 1 month or PRN 5. Abdominal weakness (R19.8) Acute on chronic Sub-optimal Likely playing a role in the patient's low back pain - as weak core muscles lead to overuse of posterior erector muscle groups and hip flexors for postural stability Given instructions on how to begin engaging core muscles - supine with knees bent Discussed how this will help with trunk stability and share the work with her other erector muscles f/u 1 month 6. Hip flexor tightness (M24.559) Chronic Sub-optimal control Likely stemming from sub-optimal mechanics Discussed how underuse of abdominal muscles to provide trunk stability can lead to an overreliance on hip flexors, hamstrings and lumbar paraspinals which can lead to increase/ worsening of low back pain And if the patient has DDD, arthritis etc, can aggravate those symptoms as well See #5 Trunk stability exercises reviewed today Address abdominal weakness F/u 1 month or PRN 7. Poor posture (R29.3) Acute on chronic Likely contributes to above Work on core strength exercises reviewed today Explained how this will help offload the work down by the lumbar erectors and help reduce the strain the patient feels in the low back region Discussed how to work on this between appts Discussed on this can play a role in straining the muscles of the cervical spine and can contribute to headaches as well Work on postural exercises F/u 1 month or PRN 8. Hamstring tightness (M62.89) Acute on chronic Likely leading to low back pain Discussed how this is often associated with sub-optimal abdominal/core strength as well Described how this is often associated with low back pain Exercises for core strength recommended today Consider PT if the patient doesn't improve on their own F/u 1 month 9. 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 Arthritis (M19.9) Chronic Sub-optimal control; stable Room for improvement Discussed the rationale for NSAIDs and tylenol PRN in managing symptoms *avoid NSAIDS in patients who have contraindications Discussed the rationale for PRN meds vs scheduled vs maximal dosing per recs Topical vs oral meds discussed Discussed the rational for PT; deferred today F/u PRN 11. Somatic dysfunction of the head (M99.00) Manipulation described as above Provided with permission by the patient The patient tolerated manipulation well and the procedure went as planned without incident Range of motion and function have improved with objective improvement of signs and subjective improvement of symptoms Patient to follow-up in 3-4 weeks for additional manipulation if needed (or sooner PRN) Discussed the importance of postural exercises - see above and instructions below 12. Somatic dysfunction of the Cervical Spine (M99.01) see OMM portion for more details 13. Somatic dysfunction of the Thoracic Spine (M99.02) see OMM portion for more details 14. Somatic dysfunction of the Lumbar Spine (M99.03) see OMM portion for more details 15. Somatic dysfunction of the Sacral Spine (M99.04) see OMM portion for more details 16. Somatic dysfunction of the Lower Extremities (M99.06) see OMM portion for more details Total time spent TODAY preparing the chart, face to face with the patient and family and time spent documenting, reviewing, and ordering tests was 30 mins. Time spent with manipulation was over and above the noted 30 minutes. Patient was counseled on the above diagnosis and treatment, all questions were answered and patient agrees to adhere to the plan above. Risk and benefits of appropriate procedures and medications were reviewed as well with patient, who voiced understanding and agreement. Patient was counseled on smoking cessation and/or continuing to abstain from nicotine/tobacco products as appropriate based on history; as smoking/nicotine can contribute to increased pain overall and decreased wound healing. Patient counseled on maintaining a healthy BMI as part of the total treatment of their pain and to reduce stress/strain on joints. Patient invited to return or call with any questions or concerns that arise. from last note: 15. HTN (hypertension) (I10: Essential (primary) hypertension) good control having some concerns re: cost of amlodipine clarify with pharmacist [1] 7. 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 Chronic low back pain (M54.50: Low back pain, unspecified) acute on chronic no red flag symptoms today pin point tenderness at the right SI recommend seeing pain management soon given increase of pain, will start prednisone Multifactorial etiology Medication does seem to provide ample benefit Does get benefit from OMT Given her vascular hx, NSAIDs are not an option Gabapentin, for RLS, has been beneficial for her back pain to some degree Will taking oxycodone sparingly - at most twice a day when things are bad But she'll often take one or skip a whole day when she's feeling better Discussed the importance of optimizing mechanics Discussed the rationale of manipulation in the future F/u 1 month or PRN *Patient denies any symptoms of progressively worsening upper/lower extremity weakness, progressively worsening gait abnormality, new onset bowel/bladder incontinence/ urinary retention, or saddle anesthesia. No new or worsening symptoms of fever, chills, night sweats. 2. DDD (degenerative disc disease), cervical (M50.30: Other cervical disc degeneration, unspecified cervical region) 3. Spasm of lumbar paraspinous muscle (M62.830: Muscle spasm of back) 4. Abdominal weakness (R19.8: Other specified symptoms and signs involving the digestive system and abdomen) 5. Elevated diaphragm (J98.6: Disorders of diaphragm) 6. Insomnia (G47.00: Insomnia, unspecified) doing better with gabapentin 7. Somatic dysfunction of cervical region (M99.01: Segmental and somatic dysfunction of cervical region) 8. Somatic dysfunction of thoracic region (M99.02: Segmental and somatic dysfunction of thoracic region) 9. Somatic dysfunction of lumbar region (M99.03: Segmental and somatic dysfunction of lumbar region) 10. Somatic dysfunction of sacral spine (M99.04: Segmental and somatic dysfunction of sacral region) 11. Somatic dysfunction of abdominal region (M99.09: Segmental and somatic dysfunction of abdomen and other regions) 12. Stage 3a chronic kidney disease (CKD) (N18.31: Chronic kidney disease, stage 3a) 13. Emphysema/COPD (J43.1: Panlobular emphysema) 14. Chronic respiratory failure with hypoxia (J96.11: Chronic respiratory failure with hypoxia) 15. HTN (hypertension) (I10: Essential (primary) hypertension) 16. RLS (restless legs syndrome) (G25.81: Restless legs syndrome) chronic stable 17. 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) improved would benefit from continuing PT 18. Wears hearing aid in both ears (Z97.4: Presence of external hearing-aid) no longer using her hearing aides due to issues with not being able to charge them 19. History of stroke (Z86.73: Personal history of transient ischemic attack (TIA), and cerebral infarction without residual deficits) 20. Stooped posture (R29.3: Abnormal posture) 21. Somatic dysfunction of lower extremities (M99.06: Segmental and somatic dysfunction of lower extremity) Adult BMI 29.0-29.9 kg/sq m (Z68.29: Body mass index [BMI] 29.0-29.9, adult) Ordered: Body Mass Index (BMI) documented 3008F Current tobacco non-user 1036F Depression Screening Negative 3352F Fall Risk Screen 2 or more w/injury 1100F Influenza immunization administered or previously received 4274F Most recent diastolic blood pressure <80 mm Hg 3078F Systolic BP <130 mm Hg (Most Recent) 3074F Other chronic pain (G89.29: Other chronic pain) 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 Incontinence without sensory awareness Insomnia Irritable bowel syndrome with predominant constipation Lumbar radiculopathy, right Major depressive disorder, recurrent, mild Mild cognitive impairment Mixed incontinence OAB (overactive bladder) Obesity due to excess calories Other urethral stricture, female Pain of right sacroiliac joint Patient has healthcare proxy and living will Peripheral neuropathy RLS (restless legs syndrome) S/P knee replacement Severe obstructive sleep apnea Shoulder pain Somatic dysfunction of abdominal region Somatic dysfunction of cervical region Somatic dysfunction of lower extremities Somatic dysfunction of lumbar region Somatic dysfunction of rib cage region Somatic dysfunction of sacral spine Somatic dysfunction of thoracic region Spasm of lumbar paraspinous muscle Stage 3a chronic kidney disease (CKD) Stooped posture Thoracic aorta atherosclerosis Tremor Wears hearing aid in both ears Historical Abdominal pain, generalized Abnormal urinalysis Body mass index (BMI) of 31.0-31.9 in adult Bronchitis with bronchospasm Cervical radiculopathy Chest pain Dizziness WINTERS (dyspnea on exertion) Exposure to second hand smoke Frequent urination Hernia of abdominal wall History of UTI Leg edema Pain in back 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 Rib pain on right side Right hip pain Screening mammogram, encounter for Urinary urgency Procedure/Surgical History Injection of nerve root of lumbar spine using fluoroscopic guidance (12/21/2023), Injection of nerve root of sacral spine [...] Corns and callus, mole removal, Tubal ligation. Medications acetaminophen-oxycodone 325 mg-5 mg Tab, 1 tab(s), Oral, BID amLODIPine 5 mg Tab, 5 mg= 1 tab(s), Oral, Daily, 4 refills cyclobenzaprine 5 mg Tab, 5 mg= 1 tab(s), Oral, Bedtime, 12 refills diclofenac topical 1% gel, 1 elva, Topical, QID, PRN Dulcolax Tab-EC, 2-3 tabs, Oral, Daily gabapentin 300 mg Cap, 300 mg= 1 cap(s), Oral, TID, 11 refills Handicap Placard, See Instructions Maxzide-25 oral tablet, 1 tab(s), Oral, Daily, 4 refills Misc DME Prescription, See Instructions nebulizer supplies, See Instructions, 11 refills omeprazole 20 mg Cap-DR, 20 mg= 1 cap(s), Oral, Daily, 4 refills triamcinolone Top 0.1% Crm 15 gram, 1 elva, Topical, BID, 11 refills Tylenol, 500 mg, Oral, q6hr Allergies Chocolate (Anaphylaxis) Adhesive Bandage (Itching, Rash) [...] Previous treatment: None. Household tobacco concerns: No., 01/09/2024 Family History Alcoholism: Father. Metastatic cancer: Mother. Parkinson disease: Father. Parkinson's disease: Father. Primary malignant neoplasm of colon: Mother. Immunizations Vaccine Date Status Comments SARS-CoV-2 (COVID-19) mRNA BNT-162b2 vax 01/18/2024 Recorded [facility] diphtheria/pertussis, acel/tetanus adult 01/18/2024 Recorded influenza virus vaccine, inactivated 11/24/2023 Given influenza virus vaccine, inactivated - Not Given Vaccine Storage zoster vaccine, inactivated 05/22/2023 Recorded zoster vaccine live 02/06/2023 Recorded Zoster Recombinant per [facility] zoster vaccine, inactivated 02/06/2023 Recorded influenza virus vaccine, inactivated 01/09/2023 Given Early/Late Reason: System Down SARS-CoV-2 (COVID-19) [id number] 01/18/2022 Given influenza virus vaccine, inactivated 01/18/2022 Given influenza virus vaccine, inactivated - Not Given Postpone due to refusal SARS-CoV-2 (COVID-19) mRNA BNT-162b2 vax 01/13/2021 Given influenza virus vaccine, inactivated 12/09/2020 Given SARS-CoV-2 (COVID-19) mRNA-1273 vaccine 05/18/2020 Recorded SARS-CoV-2 (COVID-19) mRNA-1273 vaccine 05/18/2020 Recorded Patrice [employer] Patrice vaccine administered with [facility] dept ImpactSI[employer] scanned with date influenza virus vaccine, inactivated 12/27/2019 Given influenza virus vaccine, inactivated 12/18/2018 Given influenza virus vaccine, inactivated 01/09/2018 Recorded pneumococcal 13-valent vaccine 03/29/2017 Recorded influenza virus vaccine, inactivated 12/08/2016 Recorded influenza virus vaccine, inactivated 12/17/2015 Recorded pneumococcal 23-valent vaccine 01/21/2014 Recorded pneumococcal 23-valent vaccine 12/16/2013 Recorded pneumococcal 23-valent vaccine 01/04/2008 Recorded [1] f/u -; Dakotah Gallardo DO 03/05/2024 09:01 EST [2] f/u -; Dakotah Gallardo DO 03/05/2024 09:01 EST Result Comment: Electronical ly Signed By: Dakotah Gallardo DO\.br\Date and Time Signed: 04/10/24 19:51 EST POPULATION HEALTH Observed: 04/08/2024 4:22 PM Status: F Source: [facility] Population Health Case Information Case Priority: None Programs: -- Referral Source: Mine Engineer Referral Reason: Disease management Case Type: Chronic Care Management Risk Score: -- Case Status: Active (January 03, 2019) Date Assigned: December 19, 2018 Assigned By: Brice Stephenson RN Date Enrolled: January 03, 2019 Assigned Primary Personnel: Dereck Rosario RN Assigned Secondary Personnel: Linda Wing RN Case Physician: Dakotah Gallardo DO Problems Ongoing 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 Incontinence without sensory awareness Insomnia Irritable bowel syndrome with predominant constipation Lumbar radiculopathy, right Major depressive disorder, recurrent, mild Mild cognitive impairment Mixed incontinence OAB (overactive bladder) Obesity due to excess calories Other urethral stricture, female Pain of right sacroiliac joint Patient has healthcare proxy and living will Peripheral neuropathy RLS (restless legs syndrome) S/P knee replacement Severe obstructive sleep apnea Shoulder pain Somatic dysfunction of abdominal region Somatic dysfunction of cervical region Somatic dysfunction of lower extremities Somatic dysfunction of lumbar region Somatic dysfunction of rib cage region Somatic dysfunction of sacral spine Somatic dysfunction of thoracic region Spasm of lumbar paraspinous muscle Stage 3a chronic kidney disease (CKD) Stooped posture Thoracic aorta atherosclerosis Tremor Wears hearing aid in both ears Historical Abdominal pain, generalized Abnormal urinalysis Body mass index (BMI) of 31.0-31.9 in adult Bronchitis with bronchospasm Cervical radiculopathy Chest pain Dizziness WINTERS (dyspnea on exertion) Exposure to second hand smoke Frequent urination Hernia of abdominal wall History of UTI Leg edema Pain in back 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 Rib pain on right side Right hip pain Screening mammogram, encounter for Urinary urgency Procedure/Surgical History Injection of nerve root of lumbar spine using fluoroscopic guidance (12/21/2023), Injection of nerve root of sacral spine [...] callus, mole removal, Tubal ligation. Home Medications acetaminophen-oxycodone 325 mg-5 mg Tab, 1 tab(s), Oral, BID amLODIPine 5 mg Tab, 5 mg= 1 tab(s), Oral, Daily, 4 refills cyclobenzaprine 5 mg Tab, 5 mg= 1 tab(s), Oral, Bedtime, 12 refills diclofenac topical 1% gel, 1 elva, Topical, QID, PRN Dulcolax Tab-EC, 2-3 tabs, Oral, Daily gabapentin 300 mg Cap, 300 mg= 1 cap(s), Oral, TID, 11 refills Handicap Placard, See Instructions Maxzide-25 oral tablet, 1 tab(s), Oral, Daily, 4 refills Misc DME Prescription, See Instructions nebulizer supplies, See Instructions, 11 refills omeprazole 20 mg Cap-DR, 20 mg= 1 cap(s), Oral, Daily, 4 refills triamcinolone Top 0.1% Crm 15 gram, 1 elva, Topical, BID, 11 refills Tylenol, 500 mg, Oral, q6hr Allergies Chocolate (Anaphylaxis) Adhesive Bandage (Itching, Rash) [...] Previous treatment: None. Household tobacco concerns: No., 01/09/2024 Family History Alcoholism: Father. Metastatic cancer: Mother. Parkinson disease: Father. Parkinson's disease: Father. Primary malignant neoplasm of colon: Mother. Screenings and Assessments 01/03/19 12:08:00 Result Name Value Comment Phone Call Monitoring Consent Agreed to continue call Phone Verification Patient Information Full name, street address and date of verified CM Program Enrollment Written consent completed 01/03/19 12:00:00 Result Name Value Comment HIPPA Verified Type of Contact In person in the office Information Given by Patient CM Preferred Spoken Language Comoran CM Preferred Written Language Swiss Preferred Communication Mode Verbal Ability to Read/Write Able to read, Able to write Preferred Method of Contact Cell Best Time to Visit or Contact 10-1 pm, 1-5 pm Best Day to Visit or Contact No preference Preferred Way to Send PHI Standard mail Lives In Single level home Number in Household 3 Lives with handicapped brother and daughter. 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 Start Date: 2018 Target: - - Status: - - Barriers: - - Comments: - - Intervention Frequency Status Credit Or Loans Officer Use inhaler as prescribed by PCP - - Done - - Start Water aerobic exercises beginning 01/08/19 2 days per week to include water walking - - Done - - Use nebulizer machine as needed for SOB for COPD. - - Progressing - - 10/12/21 Fill Rx for Rescue pack and call CN if starts medications - - Done - - Goal: Will have improvement in lower leg swelling Start Date: 2020 Target: - - Status: - - Barriers: - - Comments: - - Intervention Frequency Status Credit Or Loans Officer Decrease sodium intake to 2000 mg daily, do not use salt shaker. - - Progressing - - Weigh daily, record and notify CN of 3# weight gain in day or %3 over a week. - - Not done - - Keep appointment with Dr. Sifuentes on 10/13/20 at 0920 - - Done - - 06/08/21 Patient is going to try to return to water aerobics once per week, - - Not done - - Keep legs elevated when sitting - - Progressing - - Goal: Reduce frequency of Urinary Tract infections Start Date: 2021 Target: - - Status: - - Barriers: - - Comments: - - Intervention Frequency Status Credit Or Loans Officer Call office at first signs and symptoms of UTI for urinalysis. - - Progressing - - Drink 64 oz of fluids each day to stay hydrated. - - Progressing - - Go to restroom at first sign of urinary urge and not hold. - - Progressing - - See urologist as needed. - - Progressing - - Botox injections for urinary incontinence every 6 months as needed. 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 Start Date: 2018 Target: - - Status: Met Barriers: - - Comments: - - Intervention Frequency Status Credit Or Loans Officer Start water therapy on January 08 and attend every Monday and each week - - Done - - Patient to call Chiropractor to have diapraghm put back in place as needed. - - Progressing - - Goal: Will have relief from constipation Start Date: 2019 Target: - - Status: Met Barriers: - - Comments: - - Intervention Frequency Status Credit Or Loans Officer Take OTC MiraLax 17 gm 1.5 caps BID - - Done - - Follow up with Title Supervisor as needed. - - Done - - Take Trulance 3 mg daily for constipation - - Done - - Right hernia repari surgery scheduled for 09/07/20. - - Done - - Take Ducolax 2 tab a bedtime as directed - - Done - - Progress Note CCM Update for March 2024. Called started at 1210. Called patient for monthly CCM call. Patient reports that she is doing ok. She has been having right hip pain that goes down her leg. She has been doing physical therapy (stretching and strength) but this does not seem to be helping. She reports acupuncture was suggested for her hip pain. Initially she was not going to do this because it is not covered by her insurance but, she repots she is now going to try it - it will cost her $45. She recently had a cold and reported she stay in until it cleared up and once, she felt better she did wear a mask to baptism. She did not want to spread what she had to others. She reports about 2-3 weeks ago she tried to get out of bed at around 0300 and fell and hit her nose on her o2 concentrator. She said luckily her daughter heard her fall and came to assist her. She said she did not hit her head, but her nose was bleeding. She did not go to the ER for evaluation. She said she has been fine but she does report her nose and back are still sore. She does report using her oxygen at night if her oxygen is at or below 90%. She reports that when she becomes short of breath she sits down and relaxes until this subsides. Reminded patient about upcoming appointment non 04/09/2024. Patient reports she does not weigh herself daily. She does not have any leg or feet swelling. Patient does wish to continue monthly CCM calls. Patient will keep scheduled appointments, continue monitoring O2 stats, monitor and correct area of fall risk and take medications as prescribed. CN will call patient again in April. Call ended at 1225 Communication Events Date: April 08, 2024 Method: Phone call Type: Outbound Duration (min): 14 Outcome: Case discussion Contact Type: Patient Contact Name: MATEO [place] Notes: CCM Update for March 2024 -see case summary note Created By: Linda Wing RN Date: February 23, 2024 Method: Phone call Type: Outbound Duration (min): 1 Outcome: Left message-voicemail Contact Type: Patient Contact Name: ANANT MATEO [place] Notes: CCM Update for February 2024 - no answer - left message along with cn contact info Created By: Linda Wing RN Date: February 06, 2024 Method: Phone call Type: Outbound Duration (min): 1 Outcome: Left message-voicemail Contact Type: Patient Contact Name: MATEO [place] Notes: CCM update - january 2024 attempted to call patient for monthly follow up - no answer - left message along with cn contact info Created By: Linda Wing RN Date: January 11, 2024 Method: Phone call Type: Outbound Duration (min): 1 Outcome: Left message-voicemail Contact Type: Patient Contact Name: MATEO [place] Notes: [facility] Update - Called patient for December 2023 update - no answer - left message along with cn contact info Created By: Linda Wing RN Date: November 24, 2023 Method: In-person Type: -- Duration (min): 37 Outcome: Case discussion Contact Type: Patient Contact Name: MATEO [place] Notes: [facility] November 2023 update - see case summary note Created By: Linda Wing RN Date: November 23, 2023 Method: Phone call Type: Outbound Duration (min): 1 Outcome: Case discussion Contact Type: Patient emergency contact Contact Name: Geneva - daughter Notes: [facility] Nov 2023 - spoke to daughter - they have appt tomorrow 11/24/2023 and they will speak to me then Created By: Linda Wing RN Date: October 24, 2023 Method: Phone call Type: Outbound Duration (min): 1 Outcome: Left message-voicemail Contact Type: Patient emergency contact Contact Name: [place] Notes: [facility] [place] - called for monthly follow up call - left message along with cn contact information Created By: Linda Wing RN Date: June 09, 2023 Method: Phone call Type: Outbound Duration (min): 7 Outcome: Case discussion Contact Type: academic affairs coordinator Contact Name: Dereck Rosario RN Notes: Called for [facility] CCM. See case summary note. Created By: Dereck Rosario RN Date: April 28, 2023 Method: Phone call Type: Outbound Duration (min): 3 Outcome: Case discussion Contact Type: academic affairs coordinator Contact Name: Dereck Rosario RN Notes: Called for Fe CCM. See case summary note. Created By: Dereck Rosario RN Date: April 05, 2023 Method: Phone call Type: Outbound Duration (min): 15 Outcome: Case discussion Contact Type: academic affairs coordinator Contact Name: Dereck Rosario RN Notes: Called for Peña CCM. See case summary note. Created By: Dereck Rosario RN Date: March 08, 2023 Method: Phone call Type: Outbound Duration (min): 20 Outcome: Case discussion Contact Type: academic affairs coordinator Contact Name: Dereck Rosario RN Notes: Called for Dec CCM. See case summary note. Created By: Dereck Rosario RN Date: March 08, 2023 Method: Phone call Type: Outbound Duration (min): 1 Outcome: Left message-voicemail Contact Type: academic affairs coordinator Contact Name: Dereck Rosario RN Notes: Called for Dec CCM. Left message asking for return phone call. Created By: Dereck Rosario RN Date: January 13, 2023 Method: Phone call Type: Inbound Duration (min): 10 Outcome: Case discussion Contact Type: Patient Contact Name: ANANT, MATEO Peyton Notes: CCM patient called, see FT summary note. Created By: Aminata Mendieta RN Date: January 12, 2023 Method: Phone call Type: Outbound Duration (min): 10 Outcome: Case discussion Contact Type: Complex daycare managerproject manager finance Name: Aminata Mendieta RN Notes: Called patient for CCM follow-up, spoke with daughter see FT summary note. Created By: Aminata Mendieta RN Date: November 23, 2022 Method: Phone call Type: Outbound Duration (min): 1 Outcome: Left message-voicemail Contact Type: Complex daycare managerproject manager finance Name: Aminata Mendieta RN Notes: Attempted to call daughter cell phone for CCM follow-up, no answer, left message asking for a return call. Created By: Aminata Mendieta RN Date: November 23, 2022 Method: Phone call Type: Outbound Duration (min): 1 Outcome: Left message-voicemail Contact Type: Complex daycare managerproject manager finance Name: Aminata Mendieta RN Notes: Attempted to call patient for CCM, no answer left message asking for a return call. Created By: Aminata Mendieta RN Date: August 31, 2022 Method: Phone call Type: Outbound Duration (min): 17 Outcome: Case discussion Contact Type: Pharmacist Contact Name: Nelli Dhillon PharmD Notes: Medication review with pharmacy. See SOAP note. Created By: Aminata Mendieta RN Date: August 23, 2022 Method: Phone call Type: Outbound Duration (min): 7 Outcome: Case discussion Contact Type: Medical facility Contact Name: Aminata Mendieta Notes: spoke with Iris from Patient expereince, please see FT summary note. Created By: Aminata Mendieta RN Date: August 23, 2022 Method: Phone call Type: Outbound Duration (min): 16 Outcome: Case discussion Contact Type: Complex daycare managerproject manager finance Name: Aminata Mendieta RN Notes: Daughter left 2 messages while CCN on vacation, returned call see FT summary note. Created By: Aminaat Mendieta RN Date: August 01, 2022 Method: Phone call Type: Inbound Duration (min): 7 Outcome: Case discussion Contact Type: Patient advocate Contact Name: [place] yN Notes: Daughterr called with updates. See FT summary note. Created By: Aminata Mendieta RN Date: July 21, 2022 Method: Phone call Type: Outbound Duration (min): 15 Outcome: Case discussion Contact Type: Complex daycare managerproject manager finance Name: Aminata Mendieta RN Notes: See FT summary note. Created By: Aminata Mendieta RN Date: July 15, 2022 Method: Phone call Type: Outbound Duration (min): 1 Outcome: Left message-voicemail Contact Type: Complex daycare managerproject manager finance Name: Aminata Mendieta RN Notes: Daughter left message at 1030 asking for a return call, called daughter, no answer, left message to call again. Patient was seen by Dr. Hernandez today in [facility]. Created By: Aminata Mendieta RN Date: June 22, 2022 Method: Phone call Type: Outbound Duration (min): 20 Outcome: Case discussion Contact Type: Complex daycare managerproject manager finance Name: Amniata Mendieta RN Notes: Daughter left message asking for a return call, called patient, spoke with daughter see FT summary note. Created By: Aminata Mendieta RN Date: May 25, 2022 Method: Phone call Type: Inbound Duration (min): 1 Outcome: Case discussion Contact Type: Patient Contact Name: MATEO [place] Notes: Daughter left message that she started Rescue pack and would like a generic refill for Dexilant, see message center note. Created By: Aminata Mendieta RN Date: May 19, 2022 Method: Phone call Type: Inbound Duration (min): 3 Outcome: Case discussion Contact Type: Patient advocate Contact Name: [place] Ny Notes: Daughter called with information for help at hand for Dexilant. see message center note. Created By: Aminata Mendieta RN Date: May 17, 2022 Method: Phone call Type: Inbound Duration (min): 22 Outcome: Case discussion Contact Type: Patient advocate Contact Name: [place] Ny Notes: Daughter [place] calls with concerns see message center note. Created By: Aminata Mendieta RN Date: May 10, 2022 Method: Phone call Type: Outbound Duration (min): 10 Outcome: Case discussion Contact Type: Complex daycare managerproject manager finance Name: Aminata Mendieta RN Notes: Daughter left message asking for a return call. Called daughter, see FT summary note. Created By: Aminata Mendieta RN Date: March 25, 2022 Method: Phone call Type: Inbound Duration (min): 10 Outcome: Case discussion Contact Type: Patient Contact Name: MATEO [place] Notes: [facility] patient calls with complaints of thrush again, see message center note. Created By: Aminata Mendieta RN Date: March 16, 2022 Method: Phone call Type: Outbound Duration (min): 5 Outcome: Case discussion Contact Type: Complex daycare managerproject manager finance Name: Aminata Mendieta RN Notes: Called daughter back regarding Prednsone prescription. See message center note. Created By: Aminata Mendieta RN Date: March 16, 2022 Method: Phone call Type: Outbound Duration (min): 1 Outcome: Case discussion Contact Type: Complex daycare managerproject manager finance Name: Juani De La Garza MA Notes: [facility] called patient about prescription for Prednisone. Created By: Aminata Mendieta RN Date: March 15, 2022 Method: Phone call Type: Outbound Duration (min): 1 Outcome: Left message-voicemail Contact Type: Complex daycare managerproject manager finance Name: Aminata Mendieta RN Notes: Left message that Pulmonology office should call tomorrow to schedule patient. Created By: Aminata Mendieta RN Date: March 15, 2022 Method: Phone call Type: Outbound Duration (min): 3 Outcome: Case discussion Contact Type: Specialist Contact Name: Aminata Mendieta RN Notes: Called Pulmonology to see about referral for patient, see message center note. Created By: Aminata Mendieta RN Date: March 04, 2022 Method: Phone call Type: Outbound Duration (min): 6 Outcome: Case discussion Contact Type: Complex daycare managerproject manager finance Name: Aminata Mendieta RN Notes: Called CCM patient for follow-up on thrush, see FT summary note. Created By: Aminata Mendieta RN Date: February 21, 2022 Method: Phone call Type: Inbound Duration (min): 15 Outcome: Case discussion Contact Type: Patient Contact Name: MATEO [place] Notes: CCM patient called started COPD rescue pack 02/18/22. See FT summary note. Created By: Aminata Mendieta RN Date: February 15, 2022 Method: Phone call Type: Outbound Duration (min): 1 Outcome: Case discussion Contact Type: Complex daycare managerproject manager finance Name: Aminata Mendieta RN Notes: CCM patient called for follow-up and to schedule appointment, no answer, left voicemail asking for a return call. Created By: Aminata Mendieta RN Date: January 24, 2022 Method: Phone call Type: Outbound Duration (min): 11 Outcome: Case discussion Contact Type: Complex daycare managerproject manager finance Name: Aminata Mendieta RN Notes: Called [facility] patient for follow-up. Created By: Aminata Mendieta RN Date: January 13, 2022 Method: In-person Type: -- Duration (min): 7 Outcome: Case discussion Contact Type: Complex daycare managerproject manager finance Name: Aminata Mendieta RN Notes: Patient in office asking for samples of Stiolto Respimat. Created By: Aminata Mendieta RN Date: January 12, 2022 Method: Phone call Type: Outbound Duration (min): 3 Outcome: Case discussion Contact Type: Complex daycare managerproject manager finance Name: Debbi Hammer Notes: See message center note. Created By: Aminata Mendieta RN Date: January 12, 2022 Method: Phone call Type: Inbound Duration (min): 6 Outcome: Case discussion Contact Type: Patient advocate Contact Name: [place] Ny Notes: Daughter called patient started COPD Rescue pack on 01/09/22, see message center note. Created By: Aminata Mendieta RN Date: December 28, 2021 Method: Phone call Type: Inbound Duration (min): 25 Outcome: Case discussion Contact Type: Patient advocate Contact Name: [place] Ny Notes: daughter called with updates and needs for medications. See message center note. Created By: Aminata Mendieta RN Date: November 30, 2021 Method: Phone call Type: Outbound Duration (min): 18 Outcome: Case discussion Contact Type: Complex daycare managerproject manager finance Name: Aminata Mendieta RN Notes: Called CCM patient for follow-up, see FT summary note. Created By: Aminata Mendieta RN Date: November 23, 2021 Method: Phone call Type: Inbound Duration (min): 5 Outcome: Case discussion Contact Type: Patient advocate Contact Name: -- Notes: Daughter called regarding patient breathing and samples of Stioloto inhaler. See FT summary note. Created By: Aminata Mendieta RN Date: November 02, 2021 Method: Phone call Type: Outbound Duration (min): 1 Outcome: Left message-voicemail Contact Type: Complex daycare managerproject manager finance Name: Aminata Mendieta RN Notes: Left message regarding samples and [employer] [facility] phone number and to call if any questions. Created By: Aminata Mendieta RN Date: November 02, 2021 Method: Phone call Type: Outbound Duration (min): 7 Outcome: Case discussion Contact Type: Complex daycare managerproject manager finance Name: -- Notes: CCM follow-up see FT summary note. Created By: Aminata Mendieta RN Date: October 13, 2021 Method: Phone call Type: Outbound Duration (min): 3 Outcome: Case discussion Contact Type: Complex daycare managerproject manager finance Name: Aminata Mendieta RN Notes: Called daughter and explained information regrding [employer]'s [facility] incontinence program. See Ft summary note. Created By: Aminata Mendieta RN Date: October 13, 2021 Method: Phone call Type: Outbound Duration (min): 4 Outcome: Case discussion Contact Type: Vendor Contact Name: Enzo Notes: Called [employer] [facility] to see if there was any coverage for incontinence supplies. Medicare does nort cover but they have incontinence program. See FT summary note. Created By: Aminata Mendieta RN Date: October 13, 2021 Method: Phone call Type: Outbound Duration (min): 10 Outcome: Case discussion Contact Type: Complex daycare managerproject manager finance Name: Aminata Mendieta RN Notes: Called [facility] patient to confirm cancellation of appointment and schedule to establish with Dr. Gallardo Created By: Aminata Mendieta RN Date: September 30, 2021 Method: Phone call Type: Outbound Duration (min): 4 Outcome: Case discussion Contact Type: Complex daycare managerproject manager finance Name: Aminata Mendieta RN Notes: Called [facility] patient for follow-up after leaving ED AMA yesterday. See message center note. Created By: Aminata Mendieta RN Date: September 29, 2021 Method: Phone call Type: Inbound Duration (min): 6 Outcome: Case discussion Contact Type: Patient advocate Contact Name: [place] Ny Notes: Patient daughter called patient having chest pain, see message center note. Created By: Aminata Mendieta RN Date: September 23, 2021 Method: Phone call Type: Outbound Duration (min): 6 Outcome: Case discussion Contact Type: Complex daycare managerproject manager finance Name: Aminata Mendieta RN Notes: Called CCM for update on cough, see message center note. Created By: Aminata Mendieta RN Date: September 21, 2021 Method: Phone call Type: Outbound Duration (min): 3 Outcome: Case discussion Contact Type: Complex daycare managerproject manager finance Name: Aminata Mendieta RN Notes: Called patient rescheduled appointment and advised to restart Mucinex and chaeck with pharmacy this afternoon for new prescriptions. See message center note. Created By: Aminata Mendieta RN Date: September 21, 2021 Method: Phone call Type: Outbound Duration (min): 3 Outcome: Case discussion Contact Type: Complex daycare managerproject manager finance Name: Aminata Mendieta RN Notes: Patient could not wait on hold for Telehealth visit. Will speak with Dr. sifuentes and call back with plan of care. Created By: Aminata Mendieta RN Date: September 21, 2021 Method: Phone call Type: Outbound Duration (min): 2 Outcome: Case discussion Contact Type: Complex daycare managerproject manager finance Name: Aminata Mendieta RN Notes: Called patient to schedule appointment per Dr. Sifuentes. See message center note. Created By: Aminata Mendieta RN Date: September 20, 2021 Method: Phone call Type: Outbound Duration (min): 2 Outcome: Case discussion Contact Type: Complex daycare managerproject manager finance Name: Aminata Mendieta RN Notes: Called daughter and explained message sent to Dr. Sifuentes and if patient symptoms worsen please take to [facility], will call with answer. Created By: Aminata Mendieta RN Date: September 20, 2021 Method: Phone call Type: Inbound Duration (min): 1 Outcome: Case discussion Contact Type: Patient advocate Contact Name: [place] Ny Notes: Daughter left message about productive cough, see message center note. Created By: Aminata Mendieta RN Date: September 09, 2021 Method: Phone call Type: Outbound Duration (min): 25 Outcome: Case discussion Contact Type: Complex daycare managerproject manager finance Name: Aminata Mendieta RN Notes: [facility] follow-up, see FT summary note. Created By: Aminata Mendieta RN Date: September 08, 2021 Method: Phone call Type: Outbound Duration (min): -- Outcome: No answer Contact Type: Complex daycare managerproject manager finance Name: Aminata Mendieta RN Notes: Attempted to call daughter to notify of samples available, no answer, no voicemail, Will try again. Created By: Aminata Mendieta RN Date: August 30, 2021 Method: Phone call Type: Inbound Duration (min): 4 Outcome: Case discussion Contact Type: Patient advocate Contact Name: Demetria ny Notes: See message center note regarding samples of Stiolto Created By: Aminata Mendieta RN Date: August 05, 2021 Method: Phone call Type: Outbound Duration (min): 10 Outcome: Case discussion Contact Type: Complex daycare managerproject manager finance Name: Aminata Mendieta RN Notes: [facility] follow-up, see FT summary note. Created By: Aminata Mendieta RN Date: July 28, 2021 Method: Phone call Type: Outbound Duration (min): 5 Outcome: Case discussion Contact Type: Complex daycare managerproject manager finance Name: Aminata Mendieta RN Notes: Called daughter back, see message center note. Created By: Aminata Mendieta RN Date: July 28, 2021 Method: Phone call Type: Inbound Duration (min): 1 Outcome: Case discussion Contact Type: Patient advocate Contact Name: [place] Ny Notes: Daughter left message asking for a return call. Created By: Aminata Mendieta RN Date: July 19, 2021 Method: Phone call Type: Outbound Duration (min): 5 Outcome: Case discussion Contact Type: Complex daycare managerproject manager finance Name: Aminata Mendieta RN Notes: Called [facility] patient regarding cough, see message center note. Created By: Aminata Mendieta RN Date: July 16, 2021 Method: Phone call Type: Inbound Duration (min): 11 Outcome: Case discussion Contact Type: Patient Contact Name: ANANT MATEO Todd Notes: Patient returened call with concerns, see message center note. Created By: Aminata Mendieta RN Date: July 16, 2021 Method: Phone call Type: Outbound Duration (min): -- Outcome: Left message-voicemail Contact Type: Complex daycare managerproject manager finance Name: Aminata Mendieta RN Notes: Attempted to call patint for CCM follow-up, no answer, left message asking for a return call. Created By: Aminata Mendieta RN Date: June 30, 2021 Method: Phone call Type: Outbound Duration (min): 22 Outcome: Case discussion Contact Type: Complex daycare managerproject manager finance Name: Aminata Mendieta RN Notes: CCM monthly follow-up. See FT summary note. Created By: Aminata Mendieta RN Date: June 22, 2021 Method: Phone call Type: Outbound Duration (min): 3 Outcome: Case discussion Contact Type: Complex daycare managerproject manager finance Name: Aminata Mendieta RN Notes: Called CCM patient for bi-weekly follow-up. See FT summary note. Created By: Aminata Mendieta RN Date: June 14, 2021 Method: Phone call Type: Outbound Duration (min): 1 Outcome: Left message-voicemail Contact Type: Complex daycare managerproject manager finance Name: Aminata Mendieta RN Notes: Left message explaining prescription had refill at [facility] and to call if any problems. Created By: Aminata Mendieta RN Date: June 14, 2021 Method: Phone call Type: Inbound Duration (min): 1 Outcome: Case discussion Contact Type: Patient advocate Contact Name: [place] Ny Notes: Left message asking for a refill of Albuterol and return call. Created By: Aminata Mendieta RN Date: June 08, 2021 Method: Phone call Type: Outbound Duration (min): 15 Outcome: Case discussion Contact Type: Complex daycare managerproject manager finance Name: Aminata Mendieta RN Notes: Called CCM patient for follow-up after Botox injections. See FT summary note. Created By: Aminata Mendieta RN Date: May 24, 2021 Method: Phone call Type: Inbound Duration (min): 13 Outcome: Case discussion Contact Type: Patient advocate Contact Name: [place] Carusoo Notes: Daughter of CCM patient called regarding a technicians and trades workers referral. SEe FT summary note. Created By: Aminata Mendieta RN Date: May 10, 2021 Method: Phone call Type: Outbound Duration (min): 5 Outcome: Case discussion Contact Type: Complex daycare managerproject manager finance Name: Aminata Mendieta RN Notes: CCm follow-up, see FT summary note. Created By: Aminata Mendieta RN Date: April 19, 2021 Method: Phone call Type: Outbound Duration (min): 1 Outcome: Case discussion Contact Type: Complex daycare managerproject manager finance Name: Aminata Mendieta RN Notes: Called daughter regrding samples of Stioloto Respimat samples. See message center note. Created By: Aminata Mendieta RN Date: April 16, 2021 Method: Phone call Type: Outbound Duration (min): 14 Outcome: Case discussion Contact Type: Complex daycare managerproject manager finance Name: Aminata Mendieta RN Notes: Called CCM patient for follow-up, see case summary note. Created By: Aminata Mendieta RN Date: March 31, 2021 Method: Phone call Type: Outbound Duration (min): 6 Outcome: Case discussion Contact Type: Complex daycare managerproject manager finance Name: Aminata Mendieta RN Notes: CCM follow-up see summary note. Created By: Aminata Mendieta RN Date: March 24, 2021 Method: Phone call Type: Outbound Duration (min): 1 Outcome: Left message-voicemail Contact Type: Complex daycare managerproject manager finance Name: Aminata Mendieta RN Notes: Attempted to return patient call, no answer, left message. See message cente rnote. Created By: Aminata Mendieta RN Date: March 24, 2021 Method: Phone call Type: Inbound Duration (min): 1 Outcome: Case discussion Contact Type: Patient advocate Contact Name: [place] Ny Notes: Patient daughter left message asking for a call back regarding ATB. Created By: Aminata Mendieta RN Date: March 23, 2021 Method: Phone call Type: Outbound Duration (min): 4 Outcome: Case discussion Contact Type: Complex daycare managerproject manager finance Name: Aminata Mendieta RN Notes: Called CCM patient for follow-up on ED visit from 03/20/21. See summary note. Created By: Aminata Mendieta RN Date: March 19, 2021 Method: Phone call Type: Outbound Duration (min): 11 Outcome: Case discussion Contact Type: Complex daycare managerproject manager finance Name: Aminata Mendieta RN Notes: Called [facility] patient for follow-up. See summary note. Created By: Aminata Mendieta RN Date: March 01, 2021 Method: Phone call Type: Outbound Duration (min): 2 Outcome: Case discussion Contact Type: Complex daycare managerproject manager finance Name: Aminata Mendieta RN Notes: Called [facility] regarding inhaler samples, see messsage center note. Created By: Aminata Mendieta RN Date: February 24, 2021 Method: Phone call Type: Inbound Duration (min): 5 Outcome: Case discussion Contact Type: Patient advocate Contact Name: [place] Ny Notes: See message center note. Created By: Aminata Mendieta RN Date: February 23, 2021 Method: Phone call Type: Outbound Duration (min): 3 Outcome: Case discussion Contact Type: Complex daycare managerproject manager finance Name: Aminata Mendieta RN Notes: See message center note. Created By: Aminata Mendieta RN Date: February 22, 2021 Method: Phone call Type: Inbound Duration (min): 2 Outcome: Case discussion Contact Type: Patient advocate Contact Name: [place] Ny Notes: Daughter left detailed message see message note. Created By: Aminata Mendieta RN Date: February 22, 2021 Method: Phone call Type: Inbound Duration (min): 20 Outcome: Case discussion Contact Type: Patient advocate Contact Name: [place] Ny Notes: Patient daughter called see case summary note. Created By: Aminata Mendieta RN Date: December 31, 2020 Method: Phone call Type: Inbound Duration (min): 2 Outcome: Case discussion Contact Type: Patient advocate Contact Name: [place] Ny Notes: Daughter called asking about upcoming appointment times and dates. See message cente note. Created By: Aminata Mendieta RN Date: December 22, 2020 Method: Phone call Type: Inbound Duration (min): 2 Outcome: Case discussion Contact Type: Patient Contact Name: MATEO [place] Notes: See case summary note Created By: Aminata Mendieta RN Date: December 22, 2020 Method: Phone call Type: Outbound Duration (min): 3 Outcome: Case discussion Contact Type: Complex daycare managerproject manager finance Name: Aminata Mendieta RN Notes: See message center note. Created By: Aminata Mendieta RN Date: December 22, 2020 Method: Phone call Type: Outbound Duration (min): 5 Outcome: Case discussion Contact Type: Complex daycare managerproject manager finance Name: Aminata Mendieta RN Notes: Called patient regarding messages from Dr. Sifuentes, see message center notes x 2. Created By: Aminata Mendieta RN Date: December 21, 2020 Method: Phone call Type: Outbound Duration (min): 9 Outcome: Case discussion Contact Type: Complex daycare managerproject manager finance Name: Aminata Mendieta RN Notes: See case summary note. Created By: Aminata Mendieta RN Date: December 18, 2020 Method: Phone call Type: Outbound Duration (min): 2 Outcome: Case discussion Contact Type: Patient advocate Contact Name: Dtr- [place] Notes: CN let her know that was not in today, dtr states that she thinks pt has enough to get thorugh till Monday. CN instucted her to call on Monday if she doesn't hear from Aminata or myself. Created By: Linda Mcdonald RN Date: December 18, 2020 Method: Phone call Type: Outbound Duration (min): 1 Outcome: Case discussion Contact Type: Medical facility Contact Name: [facility] Notes: They have stiolto 5 mcg samples only, message sent to PCP; Created By: Linda Mcdonald RN Date: December 04, 2020 Method: Phone call Type: Outbound Duration (min): 4 Outcome: Case discussion Contact Type: Complex daycare managerproject manager finance Name: Aminata Mendieta RN Notes: See message center note. Created By: Aminata Mendieta RN Date: December 03, 2020 Method: Phone call Type: Inbound Duration (min): 17 Outcome: Case discussion Contact Type: Patient Contact Name: MATEO [place] Notes: CCM patient called with concerns, see message center note. Created By: Aminata Mendieta RN Date: November 09, 2020 Method: Phone call Type: Outbound Duration (min): 12 Outcome: Case discussion Contact Type: Complex daycare managerproject manager finance Name: Aminata Mendieta RN Notes: Called CCM patient for update from ED visit yesterday. See case summary note. Created By: Aminata Mendieta RN Date: October 22, 2020 Method: Phone call Type: Inbound Duration (min): 20 Outcome: Case discussion Contact Type: Patient Contact Name: MATEO [place] Notes: CCM call for October, see case summary note. Created By: Aminata Mendieta RN Date: October 22, 2020 Method: Phone call Type: Outbound Duration (min): -- Outcome: No answer Contact Type: Complex daycare managerproject manager finance Name: Aminata Mendieta RN Notes: Attempted to call daughter regarding sample of inhaler, no answer, voicemail full. Created By: Aminata Mendieta RN Date: October 22, 2020 Method: Phone call Type: Outbound Duration (min): -- Outcome: Left message-voicemail Contact Type: Complex daycare managerproject manager finance Name: Aminata Mendieta RN Notes: Attempted o call patint for October CCM follow-up. No answer, left message asking ofr a return call. Created By: Aminata Mendieta RN Date: October 21, 2020 Method: Phone call Type: Inbound Duration (min): 3 Outcome: Case discussion Contact Type: Patient advocate Contact Name: [place] Notes: Daughter called regarding need for Stioloto Respimt inhaler, see case summary note. Created By: Aminata Mendieta RN Date: September 22, 2020 Method: Phone call Type: Inbound Duration (min): 22 Outcome: Case discussion Contact Type: Patient Contact Name: MATEO [place] Notes: [facility] patient called with questions and concerns. See case summary note. Created By: Aminata Mendieta RN Date: September 08, 2020 Method: Phone call Type: Outbound Duration (min): 3 Outcome: Case discussion Contact Type: Complex daycare managerproject manager finance Name: Aminata Mendieta RN Notes: Called [facility] patient regarding outpatient surgery yesterdy, see case summary note. Created By: Aminata Mendieta RN Date: September 02, 2020 Method: Phone call Type: Outbound Duration (min): 19 Outcome: Case discussion Contact Type: Complex daycare managerproject manager finance Name: Aminata Mendieta RN Notes: [facility] monthly follow-up, see case summary note. Created By: Aminata Mendieta RN Date: September 02, 2020 Method: Phone call Type: Outbound Duration (min): -- Outcome: Left message-voicemail Contact Type: Complex daycare managerproject manager finance Name: Aminata Mendieta RN Notes: Patient left message on [facility] phone asking for a return call, called patient , no answer, left message asking for a return call. Created By: Aminata Mendieta RN Date: August 13, 2020 Method: Phone call Type: Outbound Duration (min): 2 Outcome: Case discussion Contact Type: Complex daycare managerproject manager finance Name: Aminata Mendieta RN Notes: Called [facility] patient regarding medication for ringworm, see message center note. Created By: Aminata Mendieta RN Date: August 11, 2020 Method: Phone call Type: Inbound Duration (min): 3 Outcome: Case discussion Contact Type: Complex daycare managerproject manager finance Name: Lexii Casper MA Notes: See message center note regarding ringworm Created By: Aminata Mendieta RN Date: July 29, 2020 Method: Phone call Type: Outbound Duration (min): 21 Outcome: Case discussion Contact Type: Complex daycare managerproject manager finance Name: Aminata Mendieta RN Notes: [facility] monthly follow-up, patient in ED yesterday. See case summary note. Created By: Aminaat Mendieta RN Date: July 10, 2020 Method: Phone call Type: Outbound Duration (min): 26 Outcome: Case discussion Contact Type: Complex daycare managerproject manager finance Name: Aminata Mendieta RN Notes: [facility] monthly call. See case summary note. Created By: Aminata Mendieta RN Date: February 27, 2020 Method: Phone call Type: Outbound Duration (min): 21 Outcome: Case discussion Contact Type: academic affairs coordinator Contact Name: Aminata Mendieta RN Notes: [facility] monthly call, See case summary note. Created By: Aminata Mendieta RN Date: December 31, 2019 Method: Phone call Type: Outbound Duration (min): 2 Outcome: Case discussion Contact Type: Complex daycare managerproject manager finance Name: Aminata Mendieta RN Notes: [facility] patient notified of prescriptions sent in, see message center note. Created By: Aminata Mendieta RN Date: December 30, 2019 Method: Phone call Type: Outbound Duration (min): 22 Outcome: Case discussion Contact Type: Complex daycare managerproject manager finance Name: Aminata Mendieta RN Notes: CCM call, see case summary note. Created By: Aminata Mendieta RN Date: December 09, 2019 Method: Phone call Type: Outbound Duration (min): 7 Outcome: Case discussion Contact Type: Complex daycare managerproject manager finance Name: Aminata Mendieta RN Notes: [facility] monthly call, see case summary note. Created By: Aminata Mendieta RN Date: November 28, 2019 Method: Phone call Type: Outbound Duration (min): 1 Outcome: Case discussion Contact Type: Complex daycare managerproject manager finance Name: Teena Zheng Notes: See message center note. Created By: Aminata Mendieta RN Date: November 28, 2019 Method: Phone call Type: Inbound Duration (min): 3 Outcome: Case discussion Contact Type: Patient Contact Name: ANANT MATEO G Notes: See message center note. Created By: Aminata Mendieta RN Date: November 13, 2019 Method: Phone call Type: Inbound Duration (min): 11 Outcome: Case discussion Contact Type: Complex daycare managerproject manager finance Name: Aminata Mendieta RN Notes: [facility] patient called with concerns, see case summary note. Created By: Aminata Mendieta RN Date: November 05, 2019 Method: Phone call Type: Outbound Duration (min): 8 Outcome: Case discussion Contact Type: Complex daycare managerproject manager finance Name: Aminata Mendieta RN Notes: CCM call October, see case summary note. Created By: Aminata Mendieta RN Date: October 28, 2019 Method: Phone call Type: Inbound Duration (min): 2 Outcome: Case discussion Contact Type: Complex daycare managerproject manager finance Name: Blanka Swain LPN Notes: Patient returned call regarding increase in medications. see message center note. Created By: Aminata Mendieta RN Date: October 28, 2019 Method: Phone call Type: Outbound Duration (min): 3 Outcome: Case discussion Contact Type: Complex daycare managerproject manager finance Name: Moon [place] CMA Notes: Results given regarding abdominal xray and Dr. Sifuentes recommendations, see message center note. Created By: Aminata Mendieta RN Date: October 21, 2019 Method: Phone call Type: Outbound Duration (min): 8 Outcome: Case discussion Contact Type: Complex daycare managerproject manager finance Name: Aminata Mendieta RN Notes: [facility] October call. See case summary note. Created By: Aminata Mendieta RN Date: September 03, 2019 Method: Phone call Type: Outbound Duration (min): 21 Outcome: Case discussion Contact Type: Complex daycare managerproject manager finance Name: Aminata Mendieta RN Notes: [facility] monthly August call. See case summary call. Created By: Aminata Mendieta RN Date: July 30, 2019 Method: Phone call Type: Outbound Duration (min): 21 Outcome: Case discussion Contact Type: social media managerproject manager finance Name: Aminata Mendieta RN Notes: [facility] July call, see caase summary note. Created By: Aminata Mendieta RN Date: July 09, 2019 Method: Phone call Type: Outbound Duration (min): 17 Outcome: Case discussion Contact Type: academic affairs coordinator Contact Name: Aminata Mendieta RN Notes: [facility] bi-weekly call. see case summary note. Created By: Aminata Mendieta RN Date: July 08, 2019 Method: Phone call Type: Outbound Duration (min): -- Outcome: No answer Contact Type: social media managerproject manager finance Name: Aminata Mendieta RN Notes: Attempted to call patient for update on medicaations, no answer, unable to leave voicemail. Created By: Aminata Mendieta RN Date: June 18, 2019 Method: Phone call Type: Outbound Duration (min): -- Outcome: Case discussion Contact Type: social media managerproject manager finance Name: Aminata Mendieta RN Notes: Attempted to callpatietn for bi-weekly CCM call for June, no answer, left message asking for return call. Created By: Aminata Mendieta RN Date: June 04, 2019 Method: Phone call Type: Outbound Duration (min): 13 Outcome: Case discussion Contact Type: social media managerproject manager finance Name: Aminata Mendieta RN Notes: [facility] May call, see case summary note. Created By: Aminata Mendieta RN Date: June 04, 2019 Method: Phone call Type: Outbound Duration (min): 1 Outcome: Left message-voicemail Contact Type: academic affairs coordinator Contact Name: Aminata Mendieta RN Notes: CCM May call, no answer, left message asking for return call. Created By: Aminata Mendieta RN Date: May 20, 2019 Method: Phone call Type: Outbound Duration (min): 13 Outcome: Case discussion Contact Type: social media managerproject manager finance Name: Aminata Mendieta RN Notes: CCM May call. see case summary note. Created By: Aminata Mednieta RN Date: April 26, 2019 Method: Phone call Type: Inbound Duration (min): 10 Outcome: Case discussion Contact Type: Patient Contact Name: ANANT, MATEO Peyton Notes: Patient called CN for CCM follow-up. See Case Summary Note. Created By: Brice Stephenson RN Date: April 16, 2019 Method: In-person Type: -- Duration (min): 22 Outcome: Case discussion Contact Type: Patient Contact Name: ANANT, MATEO Peyton Notes: Patient came to primary care office for assistance with medication patient assistance form. See Case Summary note. Created By: Brice Stephenson RN Date: April 16, 2019 Method: Phone call Type: Outbound Duration (min): -- Outcome: Left message-voicemail Contact Type: social media managerproject manager finance Name: Brice Stephenson RN Notes: CN attempted to call patient for CCM follow-up related to assistance with patient drug assistance paperwork completion. Message left with needed information from patient. Asked patient to return call to CN to discuss further. Created By: Brice Stephenson RN Date: April 08, 2019 Method: Phone call Type: Outbound Duration (min): 22 Outcome: Case discussion Contact Type: social media managerproject manager finance Name: Brice Stehpenson RN Notes: CN returned call to patient. See Case Summary note. Created By: Brice Stephenson RN Date: April 08, 2019 Method: Phone call Type: Inbound Duration (min): -- Outcome: Case discussion Contact Type: Patient Contact Name: ANANT MATEO Todd Notes: Patient called and left message for CN requesting return call. Patient notes she has received paperwork in regards to her refill medication and needs assistance to complete paperwork from PCP office. Asking for return phone call. Created By: Brice Stephenson RN Date: April 08, 2019 Method: Phone call Type: Outbound Duration (min): -- Outcome: No answer Contact Type: social media managerproject manager finance Name: Brice Stephenson RN Notes: CN attempted to return patient's call. No answer. Patient's VM currently noted to be full and unable to leave a message at this time. Created By: Brice Stephenson RN Date: March 11, 2019 Method: Phone call Type: Outbound Duration (min): 5 Outcome: Case discussion Contact Type: social media managerproject manager finance Name: Brice Stephenson RN Notes: CN returned call to patient for CCM follow-up call. See Case Summary note. Created By: Brice Stephenson RN Date: March 10, 2019 Method: Phone call Type: Inbound Duration (min): -- Outcome: Case discussion Contact Type: Patient Contact Name: [place] Notes: Patient called and left message on CN message system over the weekend. Reports she feels strange but states it is not an emergency. Requesting a call back. Created By: Brice Stephenson RN Date: February 27, 2019 Method: In-person Type: -- Duration (min): 4 Outcome: Case discussion Contact Type: social media managerproject manager finance Name: Brice Stephenson RN Notes: CN returned call to patient after conferring with PCP. Created By: Brice Stephenson RN Date: February 27, 2019 Method: Phone call Type: Inbound Duration (min): 7 Outcome: Case discussion Contact Type: Patient Contact Name: [place]O [place] Notes: Patient called CN about Eye appt and BP concerns, CCM follow-up. See Case Summary note. Created By: Brice Stephenson RN Date: February 20, 2019 Method: Phone call Type: Outbound Duration (min): -- Outcome: Left message-voicemail Contact Type: social media managerproject manager finance Name: Brice Stephenson RN Notes: CN attempted to call patient for CCM follow-up call. No answer. Left message asking for return phone call with patient update. Created By: Brice Stephenson RN Date: February 20, 2019 Method: Phone call Type: Inbound Duration (min): 22 Outcome: Case discussion Contact Type: Patient Contact Name: [place]O [place] Notes: Patient returned call to CN for CCM follow-up call. See Case Summary note. Created By: Brice Stephenson RN Date: February 08, 2019 Method: Phone call Type: Outbound Duration (min): -- Outcome: Left message-voicemail Contact Type: social media managerproject manager finance Name: Brice Stephenson RN Notes: CN attempted to call patient for CCM follow-up. No answer. Left message asking for return call. Created By: Brice Stephenson RN Date: January 03, 2019 Method: Phone call Type: Outbound Duration (min): 67 Outcome: Case discussion Contact Type: social media managerproject manager finance Name: Brice Stephenson RN Notes: CN met with patient for CCM initial intake assessment. See I-view and Case Summary note. Created By: Brice Stephenson RN AMBULATORY VISIT SUMMARY Observed: 03/05 9:30 AM Status: F Source: [facility] Ambulatory Visit Summary M[place]O [place] :1945 Visit Date:03/05/2024 Ambulatory Visit Instructions Your Diagnosis Chronic low back pain, Acute low back pain Spasm of lumbar paraspinous muscle Pain of right sacroiliac joint Peripheral neuropathy RLS (restless legs syndrome) Shoulder pain Frozen shoulder Elevated diaphragm Somatic dysfunction of cervical region Somatic dysfunction of thoracic region Somatic dysfunction of lumbar region Somatic dysfunction of sacral spine Somatic dysfunction of abdominal region Somatic dysfunction of rib cage region HTN (hypertension) Adult BMI 29.0-29.9 kg/sq m Other chronic pain These Are Your Goals Reduce exacerbations of [...] shaker. - Progressing Keep appointment with Dr. Sifuentes on 10/13/20 at 0920 - Done Keep [...] Gallardo DO This Is Your Medications List acetaminophen-oxycodone (acetaminophen-oxycodone 325 mg-5 mg Tab) predniSONE (predniSONE 20 mg Tab) Contact prescribing physician if questions or concerns Misc Prescription (Handicap Placard) Misc Prescription (Misc DME Prescription) Misc Prescription (nebulizer supplies) acetaminophen (Tylenol) amlodipine (amLODIPine 5 mg Tab) bisacodyl (Dulcolax Tab-EC) cyclobenzaprine (cyclobenzaprine 5 mg Tab) diclofenac topical (diclofenac topical 1% gel) gabapentin (gabapentin 300 mg Cap) hydrochlorothiazide-triamterene (Maxzide-25 oral tablet) omeprazole (omeprazole 20 mg Cap-DR) triamcinolone topical (triamcinolone Top 0.1% Crm 15 gram) Procedures Performed Injection of nerve root of lumbar spine using fluoroscopic guidance (12/21/2023), Injection of nerve root of sacral spine [...] Tubal ligation. Discharge Vitals Heart Rate (Peripheral) 72 Blood Pressure 132/62 Height 168 cm Height 66 in Weight 83.8 kg Weight 184.747 lb BMI 29.69 What to do next Scheduled Follow-Up Appointments Monday 11:15 AM EST With: Marilu Cornell PA-C [facility] Monday 9:00 AM EST With: Dakotah Gallardo DO Where: [facility] [address] [place] [address]- Monday 11:00 AM EST With: Where: [facility] [address] [place] [address]- You Need to Schedule the Following Appointments Follow Up with Dakotah Gallardo DO, GIOVANNY, PED When: Within 1 month Comments: OMT PRN - 40 min slot To go instructions (for follow up): On the day of manipulation, I strongly encourage you to to drink more water to help flush your system after today's treatment Work on using your core muscles more when standing and sitting, and especially when leaning away from your centerline or when lifting things This may take some concentration and work initially but it will eventually become more natural to you Work on shoulder retraction exercises For patients who can tolerate anti-inflammatories and/or tylenol, those medications can help provide some comfort while you work on optimizing function Getting adequate rest is important for managing musculoskeletal pain F/u 1 month or PRN Where: [address] [place] [phone] Medications What How Much When Why Instructions New predniSONE (predniSONE 20 mg Tab) 2 Tablets By Mouth Every day Acute low back pain Duration: 5 Days Pickup at [facility]/pharmacy #[id number] Unchanged acetaminophen-oxycodone (acetaminophen-oxycodone 325 mg-5 mg Tab) 1 Tablets By Mouth 2 times a day Lumbar radiculopathy, right Polyneuropathy Acute low back pain with sciatica 30 day supply Pickup at [facility]/pharmacy #[id number] Unchanged acetaminophen (Tylenol) 500 Milligram By Mouth Every 6 hours Contact prescribing physician if questions or concerns Unchanged amlodipine (amLODIPine 5 mg Tab) 1 Tablets By Mouth Every day Contact prescribing physician if questions or concerns Unchanged bisacodyl (Dulcolax Tab-EC) 2-3 tabs By Mouth Every day adjusts for constipation concerns Contact prescribing physician if questions or concerns Unchanged cyclobenzaprine (cyclobenzaprine 5 mg Tab) 1 Tablets By Mouth At bedtime Spasm of lumbar paraspinous muscle Contact prescribing physician if questions or concerns Unchanged diclofenac topical (diclofenac topical 1% gel) 1 Application Topical 4 times a day as needed for for pain Left shoulder pain Contact prescribing physician if questions or concerns Unchanged gabapentin (gabapentin 300 mg Cap) 1 Capsules By Mouth 3 times a day RLS (restless legs syndrome) Contact prescribing physician if questions or concerns Unchanged hydrochlorothiazide-triamterene (Maxzide-25 oral tablet) 1 Tablets By Mouth Every day Contact prescribing physician if questions or concerns Unchanged Misc Prescription (Handicap Placard) See instructions Expires in 5 years Contact prescribing physician if questions or concerns Unchanged Misc Prescription (Misc DME Prescription) See instructions Wheelchair Contact prescribing physician if questions or concerns Unchanged Misc Prescription (nebulizer supplies) See instructions nebulizer supplies dx J44.9 Contact prescribing physician if questions or concerns Unchanged omeprazole (omeprazole 20 mg Cap-DR) 1 Capsules By Mouth Every day Chronic GERD Contact prescribing physician if questions or concerns Unchanged triamcinolone topical (triamcinolone Top 0.1% Crm 15 gram) 1 Application Topical 2 times a day Contact prescribing physician if questions or concerns Pharmacy Information [facility]/pharmacy #[id number]: [address], [place] [phone] Allergies Chocolate (Anaphylaxis) Adhesive Bandage (Itching, Rash) aspirin (Nausea) iodinated radiocontrast dyes (hives, Unknown) penicillins (Itching, Rash) sulfamethoxazole (Swelling) Problems Ongoing - Any problem that you are currently receiving treatment for. 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 Incontinence without sensory awareness Insomnia Irritable bowel syndrome with predominant constipation Leg pain, left Lumbar radiculopathy, right Major depressive disorder, recurrent, mild Mild cognitive impairment Mixed incontinence OAB (overactive bladder) Obesity due to excess calories Other urethral stricture, female Pain of right sacroiliac joint Patient has healthcare proxy and living will Peripheral neuropathy RLS (restless legs syndrome) S/P knee replacement Severe obstructive sleep apnea Shoulder pain Somatic dysfunction of abdominal region Somatic dysfunction of cervical region Somatic dysfunction of lower extremities Somatic dysfunction of lumbar region Somatic dysfunction of rib cage region Somatic dysfunction of sacral spine Somatic dysfunction of thoracic region Spasm of lumbar paraspinous muscle Stage 3a chronic kidney disease (CKD) Stooped posture Thoracic aorta atherosclerosis Tremor UTI (urinary tract infection) Wears hearing aid in both ears Historical - Any problem that you are no longer receiving treatment for. Abdominal pain, generalized Abnormal urinalysis Body mass index (BMI) of 31.0-31.9 in adult Bronchitis with bronchospasm Cervical radiculopathy Chest pain Dizziness WINTERS (dyspnea on exertion) Exposure to second hand smoke Frequent urination Hernia of abdominal wall History of UTI Leg edema Pain in back 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 Rib pain on right side Right hip pain Screening mammogram, encounter for Urinary urgency Patient Survey You may receive a survey via text or e-mail asking about your office visit. Please share your experience with us by completing your survey. We appreciate your feedback and thank you for choosing us for your care. Education Materials Heat Therapy Heat therapy can help ease sore, stiff, injured, and tight muscles and joints. Heat relaxes your muscles. This may help ease your pain and muscle spasms. What are the risks? If you have any of the following conditions, do not use heat therapy unless your doctor says it is okay. These conditions include: ??? New bruises. ??? Open wounds. ??? Any of these in the area being treated: ? Healing wounds. ? Infected skin. ? Scarred skin. ??? Problems with how blood moves through your body (circulation). ??? Loss of feeling (numbness) in the part of your body that is being treated. ??? Unusual swelling of the part of the body that is being treated. ??? Blood clots. ??? Diabetes. ??? Heart disease. ??? Cancer. ??? Not being able to communicate pain. This may include young children and people who have problems with their brain function (dementia). How to use heat therapy There are different kinds of heat therapy. These include: ??? Moist heat pack. ??? Hot water bottle. ??? Electric heating pad. ??? Heated gel pack. ??? Heated wrap. ??? Warm water bath. Your doctor will tell you how to use heat therapy. In general, you should: 1. Place a towel between your skin and the heat source. 2. Leave the heat on for 20???30 minutes. Your skin may turn pink. 3. Take off the heat if your skin turns bright red. This is very important. If you cannot feel pain, heat, or cold, you have a greater risk of getting burned. Your doctor may also tell you to take a warm water bath. To do this: 1. Put a non-slip pad in the bathtub to prevent a fall. 2. Fill the bathtub with warm water. 3. Check the water temperature. 4. Soak in the water for 15???20 minutes, or as told by your doctor. 5. Be careful when you stand up after the bath. You may feel dizzy. 6. Pat yourself dry after the bath. Do not rub your skin to dry it. General recommendations for heat therapy ??? Be careful not to burn your skin when using heat therapy. High heat or using heat for a long time can cause demarco. ??? Do not sleep while using heat therapy. Only use heat therapy while you are awake. ??? Check your skin during heat therapy. ??? Do not use heat therapy if you have a new injury, especially if you have swelling on the injured area. ??? Do not use heat therapy on areas of your skin that are already irritated, such as with a rash or sunburn. ??? Do not use heat therapy if your skin turns bright red. Contact a doctor if: ??? You have blisters, redness, swelling, or loss of feeling in the area where you use heat therapy. ??? You have new pain. ??? You have pain that gets worse. Summary ??? Heat therapy is the use of heat to help ease sore, stiff, injured, and tight muscles and joints. ??? There are different types of heat therapy. Your doctor will tell you which one to use. ??? Only use heat therapy while you are awake. ??? Watch your skin to make sure you do not get burned while using heat therapy. This information is not intended to replace advice given to you by your health care provider. Make sure you discuss any questions you have with your health care provider. Document Revised: 12/30/2020 Document Reviewed: 12/30/2020 [employer] Patient Education ??? 2023 [employer] AMBULATORY VISIT SUMMARY Observed: 03/05 9:29 AM Status: F Source: [facility] Ambulatory Visit Summary [place] :1945 Visit Date:03/05/2024 Ambulatory Visit Instructions Your Diagnosis Chronic low back pain, Acute low back pain Spasm of lumbar paraspinous muscle Pain of right sacroiliac joint Peripheral neuropathy RLS (restless legs syndrome) Shoulder pain Frozen shoulder Elevated diaphragm Somatic dysfunction of cervical region Somatic dysfunction of thoracic region Somatic dysfunction of lumbar region Somatic dysfunction of sacral spine Somatic dysfunction of abdominal region Somatic dysfunction of rib cage region HTN (hypertension) Adult BMI 29.0-29.9 kg/sq m Other chronic pain These Are Your Goals Reduce exacerbations of [...] shaker. - Progressing Keep appointment with Dr. Sifuentes on 10/13/20 at 0920 - Done Keep [...] Gallardo DO This Is Your Medications List acetaminophen-oxycodone (acetaminophen-oxycodone 325 mg-5 mg Tab) predniSONE (predniSONE 20 mg Tab) Contact prescribing physician if questions or concerns Misc Prescription (Handicap Placard) Misc Prescription (Misc DME Prescription) Misc Prescription (nebulizer supplies) acetaminophen (Tylenol) amlodipine (amLODIPine 5 mg Tab) bisacodyl (Dulcolax Tab-EC) cyclobenzaprine (cyclobenzaprine 5 mg Tab) diclofenac topical (diclofenac topical 1% gel) gabapentin (gabapentin 300 mg Cap) hydrochlorothiazide-triamterene (Maxzide-25 oral tablet) omeprazole (omeprazole 20 mg Cap-DR) triamcinolone topical (triamcinolone Top 0.1% Crm 15 gram) Procedures Performed Injection of nerve root of lumbar spine using fluoroscopic guidance (12/21/2023), Injection of nerve root of sacral spine [...] Tubal ligation. Discharge Vitals Heart Rate (Peripheral) 72 Blood Pressure 132/62 Height 168 cm Height 66 in Weight 83.8 kg Weight 184.747 lb BMI 29.69 What to do next Scheduled Follow-Up Appointments Monday 11:15 AM EST With: Marilu Cornell PA-C [facility] Monday 9:00 AM EST With: Dakotah Gallardo DO Where: [address] [place] [address]- Monday 11:00 AM EST With: Where: [facility] [address] [place] [address]- You Need to Schedule the Following Appointments Follow Up with Paulina AGUAYO, GIOVANNY Borges PED When: Within 1 month Comments: OMT PRN - 40 min slot To go instructions (for follow up): On the day of manipulation, I strongly encourage you to to drink more water to help flush your system after today's treatment Work on using your core muscles more when standing and sitting, and especially when leaning away from your centerline or when lifting things This may take some concentration and work initially but it will eventually become more natural to you Work on shoulder retraction exercises For patients who can tolerate anti-inflammatories and/or tylenol, those medications can help provide some comfort while you work on optimizing function Getting adequate rest is important for managing musculoskeletal pain F/u 1 month or PRN Where: [address] [place] [address] [id number] Medications What How Much When Why Instructions New predniSONE (predniSONE 20 mg Tab) 2 Tablets By Mouth Every day Acute low back pain Duration: 5 Days Pickup at [facility]/pharmacy #[id number] Unchanged acetaminophen-oxycodone (acetaminophen-oxycodone 325 mg-5 mg Tab) 1 Tablets By Mouth 2 times a day Lumbar radiculopathy, right Polyneuropathy Acute low back pain with sciatica 30 day supply Pickup at [facility]/pharmacy #[id number] Unchanged acetaminophen (Tylenol) 500 Milligram By Mouth Every 6 hours Contact prescribing physician if questions or concerns Unchanged amlodipine (amLODIPine 5 mg Tab) 1 Tablets By Mouth Every day Contact prescribing physician if questions or concerns Unchanged bisacodyl (Dulcolax Tab-EC) 2-3 tabs By Mouth Every day adjusts for constipation concerns Contact prescribing physician if questions or concerns Unchanged cyclobenzaprine (cyclobenzaprine 5 mg Tab) 1 Tablets By Mouth At bedtime Spasm of lumbar paraspinous muscle Contact prescribing physician if questions or concerns Unchanged diclofenac topical (diclofenac topical 1% gel) 1 Application Topical 4 times a day as needed for for pain Left shoulder pain Contact prescribing physician if questions or concerns Unchanged gabapentin (gabapentin 300 mg Cap) 1 Capsules By Mouth 3 times a day RLS (restless legs syndrome) Contact prescribing physician if questions or concerns Unchanged hydrochlorothiazide-triamterene (Maxzide-25 oral tablet) 1 Tablets By Mouth Every day Contact prescribing physician if questions or concerns Unchanged Misc Prescription (Handicap Placard) See instructions Expires in 5 years Contact prescribing physician if questions or concerns Unchanged Misc Prescription (Misc DME Prescription) See instructions Wheelchair Contact prescribing physician if questions or concerns Unchanged Misc Prescription (nebulizer supplies) See instructions nebulizer supplies dx J44.9 Contact prescribing physician if questions or concerns Unchanged omeprazole (omeprazole 20 mg Cap-DR) 1 Capsules By Mouth Every day Chronic GERD Contact prescribing physician if questions or concerns Unchanged triamcinolone topical (triamcinolone Top 0.1% Crm 15 gram) 1 Application Topical 2 times a day Contact prescribing physician if questions or concerns Pharmacy Information [facility][id number]: [address], [place] [phone] Allergies Chocolate (Anaphylaxis) Adhesive Bandage (Itching, Rash) aspirin (Nausea) iodinated radiocontrast dyes (hives, Unknown) penicillins (Itching, Rash) sulfamethoxazole (Swelling) Problems Ongoing - Any problem that you are currently receiving treatment for. 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 Incontinence without sensory awareness Insomnia Irritable bowel syndrome with predominant constipation Leg pain, left Lumbar radiculopathy, right Major depressive disorder, recurrent, mild Mild cognitive impairment Mixed incontinence OAB (overactive bladder) Obesity due to excess calories Other urethral stricture, female Pain of right sacroiliac joint Patient has healthcare proxy and living will Peripheral neuropathy RLS (restless legs syndrome) S/P knee replacement Severe obstructive sleep apnea Shoulder pain Somatic dysfunction of abdominal region Somatic dysfunction of cervical region Somatic dysfunction of lower extremities Somatic dysfunction of lumbar region Somatic dysfunction of rib cage region Somatic dysfunction of sacral spine Somatic dysfunction of thoracic region Spasm of lumbar paraspinous muscle Stage 3a chronic kidney disease (CKD) Stooped posture Thoracic aorta atherosclerosis Tremor UTI (urinary tract infection) Wears hearing aid in both ears Historical - Any problem that you are no longer receiving treatment for. Abdominal pain, generalized Abnormal urinalysis Body mass index (BMI) of 31.0-31.9 in adult Bronchitis with bronchospasm Cervical radiculopathy Chest pain Dizziness WINTERS (dyspnea on exertion) Exposure to second hand smoke Frequent urination Hernia of abdominal wall History of UTI Leg edema Pain in back 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 Rib pain on right side Right hip pain Screening mammogram, encounter for Urinary urgency Patient Survey You may receive a survey via text or e-mail asking about your office visit. Please share your experience with us by completing your survey. We appreciate your feedback and thank you for choosing us for your care. Education Materials Heat Therapy Heat therapy can help ease sore, stiff, injured, and tight muscles and joints. Heat relaxes your muscles. This may help ease your pain and muscle spasms. What are the risks? If you have any of the following conditions, do not use heat therapy unless your doctor says it is okay. These conditions include: ??? New bruises. ??? Open wounds. ??? Any of these in the area being treated: ? Healing wounds. ? Infected skin. ? Scarred skin. ??? Problems with how blood moves through your body (circulation). ??? Loss of feeling (numbness) in the part of your body that is being treated. ??? Unusual swelling of the part of the body that is being treated. ??? Blood clots. ??? Diabetes. ??? Heart disease. ??? Cancer. ??? Not being able to communicate pain. This may include young children and people who have problems with their brain function (dementia). How to use heat therapy There are different kinds of heat therapy. These include: ??? Moist heat pack. ??? Hot water bottle. ??? Electric heating pad. ??? Heated gel pack. ??? Heated wrap. ??? Warm water bath. Your doctor will tell you how to use heat therapy. In general, you should: 1. Place a towel between your skin and the heat source. 2. Leave the heat on for 20???30 minutes. Your skin may turn pink. 3. Take off the heat if your skin turns bright red. This is very important. If you cannot feel pain, heat, or cold, you have a greater risk of getting burned. Your doctor may also tell you to take a warm water bath. To do this: 1. Put a non-slip pad in the bathtub to prevent a fall. 2. Fill the bathtub with warm water. 3. Check the water temperature. 4. Soak in the water for 15???20 minutes, or as told by your doctor. 5. Be careful when you stand up after the bath. You may feel dizzy. 6. Pat yourself dry after the bath. Do not rub your skin to dry it. General recommendations for heat therapy ??? Be careful not to burn your skin when using heat therapy. High heat or using heat for a long time can cause demarco. ??? Do not sleep while using heat therapy. Only use heat therapy while you are awake. ??? Check your skin during heat therapy. ??? Do not use heat therapy if you have a new injury, especially if you have swelling on the injured area. ??? Do not use heat therapy on areas of your skin that are already irritated, such as with a rash or sunburn. ??? Do not use heat therapy if your skin turns bright red. Contact a doctor if: ??? You have blisters, redness, swelling, or loss of feeling in the area where you use heat therapy. ??? You have new pain. ??? You have pain that gets worse. Summary ??? Heat therapy is the use of heat to help ease sore, stiff, injured, and tight muscles and joints. ??? There are different types of heat therapy. Your doctor will tell you which one to use. ??? Only use heat therapy while you are awake. ??? Watch your skin to make sure you do not get burned while using heat therapy. This information is not intended to replace advice given to you by your health care provider. Make sure you discuss any questions you have with your health care provider. Document Revised: 12/30/2020 Document Reviewed: 12/30/2020 [employer] Patient Education ??? 2023 [employer] AMBULATORY VISIT SUMMARY Observed: 03/05 9:27 AM Status: F Source: [facility] Ambulatory Visit Summary [place] :1945 Visit Date:03/05/2024 Ambulatory Visit Instructions Your Diagnosis Chronic low back pain, Acute low back pain Spasm of lumbar paraspinous muscle Pain of right sacroiliac joint Peripheral neuropathy RLS (restless legs syndrome) Shoulder pain Frozen shoulder Elevated diaphragm Somatic dysfunction of cervical region Somatic dysfunction of thoracic region Somatic dysfunction of lumbar region Somatic dysfunction of sacral spine Somatic dysfunction of abdominal region Somatic dysfunction of rib cage region HTN (hypertension) Adult BMI 29.0-29.9 kg/sq m Other chronic pain These Are Your Goals Reduce exacerbations of [...] shaker. - Progressing Keep appointment with Dr. Sifuentes on 10/13/20 at 0920 - Done Keep [...] Gallardo DO This Is Your Medications List acetaminophen-oxycodone (acetaminophen-oxycodone 325 mg-5 mg Tab) predniSONE (predniSONE 20 mg Tab) Contact prescribing physician if questions or concerns Misc Prescription (Handicap Placard) Misc Prescription (Misc DME Prescription) Misc Prescription (nebulizer supplies) acetaminophen (Tylenol) amlodipine (amLODIPine 5 mg Tab) bisacodyl (Dulcolax Tab-EC) cyclobenzaprine (cyclobenzaprine 5 mg Tab) diclofenac topical (diclofenac topical 1% gel) gabapentin (gabapentin 300 mg Cap) hydrochlorothiazide-triamterene (Maxzide-25 oral tablet) omeprazole (omeprazole 20 mg Cap-DR) triamcinolone topical (triamcinolone Top 0.1% Crm 15 gram) Procedures Performed Injection of nerve root of lumbar spine using fluoroscopic guidance (12/21/2023), Injection of nerve root of sacral spine [...] Tubal ligation. Discharge Vitals Heart Rate (Peripheral) 72 Blood Pressure 132/62 Height 168 cm Height 66 in Weight 83.8 kg Weight 184.747 lb BMI 29.69 What to do next Scheduled Follow-Up Appointments Monday 11:15 AM EST With: Marilu Cornell PA-C [facility] Monday 9:00 AM EST With: Dakotah Gallardo DO Where: [place] [address] [place] [address]- Monday 11:00 AM EST With: Where: [place] [address] [place] [address]- You Need to Schedule the Following Appointments Follow Up with Dakotah Gallardo DO, GIOVANNY, PED When: Within 1 month Comments: OMT PRN - 40 min slot To go instructions (for follow up): On the day of manipulation, I strongly encourage you to to drink more water to help flush your system after today's treatment Work on using your core muscles more when standing and sitting, and especially when leaning away from your centerline or when lifting things This may take some concentration and work initially but it will eventually become more natural to you Work on shoulder retraction exercises For patients who can tolerate anti-inflammatories and/or tylenol, those medications can help provide some comfort while you work on optimizing function Getting adequate rest is important for managing musculoskeletal pain F/u 1 month or PRN Where: [address] [place] [id number] Medications What How Much When Why Instructions New predniSONE (predniSONE 20 mg Tab) 2 Tablets By Mouth Every day Acute low back pain Duration: 5 Days Pickup at [facility]/pharmacy #[id number] Unchanged acetaminophen-oxycodone (acetaminophen-oxycodone 325 mg-5 mg Tab) 1 Tablets By Mouth 2 times a day Lumbar radiculopathy, right Polyneuropathy Acute low back pain with sciatica 30 day supply Pickup at [facility]/pharmacy #[id number] Unchanged acetaminophen (Tylenol) 500 Milligram By Mouth Every 6 hours Contact prescribing physician if questions or concerns Unchanged amlodipine (amLODIPine 5 mg Tab) 1 Tablets By Mouth Every day Contact prescribing physician if questions or concerns Unchanged bisacodyl (Dulcolax Tab-EC) 2-3 tabs By Mouth Every day adjusts for constipation concerns Contact prescribing physician if questions or concerns Unchanged cyclobenzaprine (cyclobenzaprine 5 mg Tab) 1 Tablets By Mouth At bedtime Spasm of lumbar paraspinous muscle Contact prescribing physician if questions or concerns Unchanged diclofenac topical (diclofenac topical 1% gel) 1 Application Topical 4 times a day as needed for for pain Left shoulder pain Contact prescribing physician if questions or concerns Unchanged gabapentin (gabapentin 300 mg Cap) 1 Capsules By Mouth 3 times a day RLS (restless legs syndrome) Contact prescribing physician if questions or concerns Unchanged hydrochlorothiazide-triamterene (Maxzide-25 oral tablet) 1 Tablets By Mouth Every day Contact prescribing physician if questions or concerns Unchanged Misc Prescription (Handicap Placard) See instructions Expires in 5 years Contact prescribing physician if questions or concerns Unchanged Misc Prescription (Misc DME Prescription) See instructions Wheelchair Contact prescribing physician if questions or concerns Unchanged Misc Prescription (nebulizer supplies) See instructions nebulizer supplies dx J44.9 Contact prescribing physician if questions or concerns Unchanged omeprazole (omeprazole 20 mg Cap-DR) 1 Capsules By Mouth Every day Chronic GERD Contact prescribing physician if questions or concerns Unchanged triamcinolone topical (triamcinolone Top 0.1% Crm 15 gram) 1 Application Topical 2 times a day Contact prescribing physician if questions or concerns Pharmacy Information [facility]/pharmacy #[id number]: [address], [place] [phone] Allergies Chocolate (Anaphylaxis) Adhesive Bandage (Itching, Rash) aspirin (Nausea) iodinated radiocontrast dyes (hives, Unknown) penicillins (Itching, Rash) sulfamethoxazole (Swelling) Problems Ongoing - Any problem that you are currently receiving treatment for. 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 Incontinence without sensory awareness Insomnia Irritable bowel syndrome with predominant constipation Leg pain, left Lumbar radiculopathy, right Major depressive disorder, recurrent, mild Mild cognitive impairment Mixed incontinence OAB (overactive bladder) Obesity due to excess calories Other urethral stricture, female Pain of right sacroiliac joint Patient has healthcare proxy and living will Peripheral neuropathy RLS (restless legs syndrome) S/P knee replacement Severe obstructive sleep apnea Shoulder pain Somatic dysfunction of abdominal region Somatic dysfunction of cervical region Somatic dysfunction of lower extremities Somatic dysfunction of lumbar region Somatic dysfunction of rib cage region Somatic dysfunction of sacral spine Somatic dysfunction of thoracic region Spasm of lumbar paraspinous muscle Stage 3a chronic kidney disease (CKD) Stooped posture Thoracic aorta atherosclerosis Tremor UTI (urinary tract infection) Wears hearing aid in both ears Historical - Any problem that you are no longer receiving treatment for. Abdominal pain, generalized Abnormal urinalysis Body mass index (BMI) of 31.0-31.9 in adult Bronchitis with bronchospasm Cervical radiculopathy Chest pain Dizziness WINTERS (dyspnea on exertion) Exposure to second hand smoke Frequent urination Hernia of abdominal wall History of UTI Leg edema Pain in back 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 Rib pain on right side Right hip pain Screening mammogram, encounter for Urinary urgency Patient Survey You may receive a survey via text or e-mail asking about your office visit. Please share your experience with us by completing your survey. We appreciate your feedback and thank you for choosing us for your care. Education [employer] Heat Therapy Heat therapy can help ease sore, stiff, injured, and tight muscles and joints. Heat relaxes your muscles. This may help ease your pain and muscle spasms. What are the risks? If you have any of the following conditions, do not use heat therapy unless your doctor says it is okay. These conditions include: ??? New bruises. ??? Open wounds. ??? Any of these in the area being treated: ? Healing wounds. ? Infected skin. ? Scarred skin. ??? Problems with how blood moves through your body (circulation). ??? Loss of feeling (numbness) in the part of your body that is being treated. ??? Unusual swelling of the part of the body that is being treated. ??? Blood clots. ??? Diabetes. ??? Heart disease. ??? Cancer. ??? Not being able to communicate pain. This may include young children and people who have problems with their brain function (dementia). How to use heat therapy There are different kinds of heat therapy. These include: ??? Moist heat pack. ??? Hot water bottle. ??? Electric heating pad. ??? Heated gel pack. ??? Heated wrap. ??? Warm water bath. Your doctor will tell you how to use heat therapy. In general, you should: 1. Place a towel between your skin and the heat source. 2. Leave the heat on for 20???30 minutes. Your skin may turn pink. 3. Take off the heat if your skin turns bright red. This is very important. If you cannot feel pain, heat, or cold, you have a greater risk of getting burned. Your doctor may also tell you to take a warm water bath. To do this: 1. Put a non-slip pad in the bathtub to prevent a fall. 2. Fill the bathtub with warm water. 3. Check the water temperature. 4. Soak in the water for 15???20 minutes, or as told by your doctor. 5. Be careful when you stand up after the bath. You may feel dizzy. 6. Pat yourself dry after the bath. Do not rub your skin to dry it. General recommendations for heat therapy ??? Be careful not to burn your skin when using heat therapy. High heat or using heat for a long time can cause demarco. ??? Do not sleep while using heat therapy. Only use heat therapy while you are awake. ??? Check your skin during heat therapy. ??? Do not use heat therapy if you have a new injury, especially if you have swelling on the injured area. ??? Do not use heat therapy on areas of your skin that are already irritated, such as with a rash or sunburn. ??? Do not use heat therapy if your skin turns bright red. Contact a doctor if: ??? You have blisters, redness, swelling, or loss of feeling in the area where you use heat therapy. ??? You have new pain. ??? You have pain that gets worse. Summary ??? Heat therapy is the use of heat to help ease sore, stiff, injured, and tight muscles and joints. ??? There are different types of heat therapy. Your doctor will tell you which one to use. ??? Only use heat therapy while you are awake. ??? Watch your skin to make sure you do not get burned while using heat therapy. This information is not intended to replace advice given to you by your health care provider. Make sure you discuss any questions you have with your health care provider. Document Revised: 12/30/2020 Document Reviewed: 12/30/2020 [employer] Patient Education ??? 2023 [employer]. FAMILY MEDICINE OFFICE/CLINI C NOTE Observed: 03/05/2024 9:01 AM Status: F Source: [facility] Medicine Office/Clini c Note Chief Complaint Patient states leg pain today HPI Staff Patient here for Shoulder Pain / OMT JOE 01/06/24 Patient states her shoulder is much improved after injection,but her right leg is very painful she has had to take half a dose of her pain medication 2 to 3 times daily ,she really doesn't like taking it makes her sleepy Discuss option for Amlodipine due to Expense INTERVAL: 01/15/24 Shoulder injection History of Present Illness 78 Years old Female here to f/u for Neck and LOW BACK PAIN Social: The patient is a ; her passed in 1990 The patient is retired from [employer] The patient has 6 children; 5 living 18 grandchildren 1 great grand baby List of providers Pain management - Dr. Ez Fletcher Urologist - _ [facility] staff / Chief Complaint confirmed with the patient Today, the patient reports their symptoms are PRESENT and is requesting OMT. Based on their report of symptoms and my exam findings, I believe OMT is appropriate today. The patient expresses consent for manipulation today. The patient is aware that a student may be present during treatment. Pain injections have helped the back pain. Since her last appt in December, she has had _ injections. Developed shoulder pain over the last few months But over the past month or more, the left shoulder has really been bothering her she'll occasionally feel a clunk has been trying not to use it due to pain Today, the patient describes mid back pain - 6-7/10 At worst, low back pain is 7-8 out of 10 At best, low back pain is 3 out of 10 Described as dull ache along the belt line The patient describes minimal radiation down the legs OMT seems to help with rib pain and breathing at her appt with pain management, see below, they discussed the left shoulder pain suggested topical voltaren and PT hasn't started PT takes a half tablet of the pain medicine a few times a day, as needed, when her pain is increased From last note: (tagged below) PHYSICAL EXAM Constitutional: Vital signs reviewed; this patient is well nourished, no acute distress Lungs: Clear to auscultation, non-labored respiration - expansion is symmetric Heart: Normal rate and rhythm, normal peripheral perfusion ABD: bowel sounds in all four quadrants, not tympanic - some tenderness around her hernia - mild MSK: Gait is slow shuffling gait with stooped posture SI joint is tender on the right Lumbar paraspinal muscle tight/tender bilaterally; worse on the left Core muscles are sub-optimal in tension at rest - reducible midline hernia - sub-xyphoid Skin: Warm, dry Neurologic: Awake, alert and oriented Psychiatric: Cooperative, appropriate mood and affect, judgement is appropriate Procedure documentation - Osteopathic Manipulation: Thoracic Spine: Chronic and acute tissue texture changes of the trapezius, rhomboid BILAT; worse on the left - treated with myofascial, BLT and FPR - with objective and subjective improvement Lumbar Spine: Lumbar paraspinal restriction on the BILAT; worse on the left - treated with myofascial, BLT and FPR - with objective and subjective improvement Sacral: SI dysfunction on the BILAT; worse on the left - treated with BLT and FPR - with objective and subjective improvement Lower Extremity: Psoas restriction and tenderness on the left, and fibular head dysfunction and lateral gastroc restriction on the left - treated with BLT and FPR - with objective and subjective improvement Rib: exhalation dysfunction of rib 7 on the left - treated with rib raising and BLT - with objective and subjective improvement Abdomen: Diaphragm restriction bilat - worse on the right - treated with inhibition to the diaphragm - with objective and subjective improvement PLAN: [...] symptoms of fever, chills, night sweats. 2. Neck pain (M54.2) Acute on Chronic NO recent trauma There are no neurologic symptoms or signs that raise concern for cord compression no - lower extremity weakness no - gait or coordination difficulties no - bladder or bowel dysfunction no - Lhermitte???s sign (electric or shock-like sensations that run down the back and/or limbs upon flexion or the neck) *if positive, cervical spondylotic myelopathy NO OTHER obvious red flag signs The rationale for physical therapy has been discussed; patient declines this today Discussed the role of anti-inflammatory medication taking either PRN or consistently Discussed the role of anti-spasm medications especially in patients who have headaches regularly F/u 1 month or PRN 3. Spasm of lumbar paraspinous muscle (M62.830), Spasm of thoracic paraspinal muscle (M62.830), Cervical paraspinal muscle spasm (M62.838) Acute on chronic Likely contributing to the above Etiology is likely a combination of sub-optimal mechanics, muscle imbalance, posture vs other Discussed with the patient today about the importance of optimizing function and mechanics Emphasis placed on improving posture and trunk strength, stability Improved with OMM F/u 1 month 4. Spasm of the trapezius muscle (M62.838) Acute on chronic Likely contributing to the above Etiology is likely a combination of sub-optimal mechanics, muscle imbalance, posture vs other Recommend that the patient work on postural exercises Improved with OMM today F/u 1 month or PRN 5. Abdominal weakness (R19.8) Acute on chronic Sub-optimal Likely playing a role in the patient's low back pain - as weak core muscles lead to overuse of posterior erector muscle groups and hip flexors for postural stability Given instructions on how to begin engaging core muscles - supine with knees bent Discussed how this will help with trunk stability and share the work with her other erector muscles f/u 1 month 6. Hip flexor tightness (M24.559) Chronic Sub-optimal control Likely stemming from sub-optimal mechanics Discussed how underuse of abdominal muscles to provide trunk stability can lead to an overreliance on hip flexors, hamstrings and lumbar paraspinals which can lead to increase/ worsening of low back pain And if the patient has DDD, arthritis etc, can aggravate those symptoms as well See #5 Trunk stability exercises reviewed today Address abdominal weakness F/u 1 month or PRN 7. Poor posture (R29.3) Acute on chronic Likely contributes to above Work on core strength exercises reviewed today Explained how this will help offload the work down by the lumbar erectors and help reduce the strain the patient feels in the low back region Discussed how to work on this between appts Discussed on this can play a role in straining the muscles of the cervical spine and can contribute to headaches as well Work on postural exercises F/u 1 month or PRN 9. 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 Arthritis (M19.9) Chronic Sub-optimal control; stable Room for improvement Discussed the rationale for NSAIDs and tylenol PRN in managing symptoms *avoid NSAIDS in patients who have contraindications Discussed the rationale for PRN meds vs scheduled vs maximal dosing per recs Topical vs oral meds discussed Discussed the rational for PT; deferred today F/u PRN 12. Somatic dysfunction of the Cervical Spine (M99.01) Manipulation described as above Provided with permission by the patient The patient tolerated manipulation well and the procedure went as planned without incident Range of motion and function have improved with objective improvement of signs and subjective improvement of symptoms Patient to follow-up in 3-4 weeks for additional manipulation if needed (or sooner PRN) Discussed the importance of postural exercises - see above and instructions below 13. Somatic dysfunction of the Thoracic Spine (M99.02) see OMM portion for more details 14. Somatic dysfunction of the Lumbar Spine (M99.03) see OMM portion for more details 15. Somatic dysfunction of the Sacral Spine (M99.04) see OMM portion for more details 16. Somatic dysfunction of the Lower Extremities (M99.06) see OMM portion for more details Total time spent TODAY preparing the chart, face to face with the patient and family and time spent documenting, reviewing, and ordering tests was 30 mins. Time spent with manipulation was over and above the noted 30 minutes. Patient was counseled on the above diagnosis and treatment, all questions were answered and patient agrees to adhere to the plan above. Risk and benefits of appropriate procedures and medications were reviewed as well with patient, who voiced understanding and agreement. Patient was counseled on smoking cessation and/or continuing to abstain from nicotine/tobacco products as appropriate based on history; as smoking/nicotine can contribute to increased pain overall and decreased wound healing. Patient counseled on maintaining a healthy BMI as part of the total treatment of their pain and to reduce stress/strain on joints. Patient invited to return or call with any questions or concerns that arise. 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 Chronic low back pain, (M54.50: Low back pain, unspecified)Acute low back pain acute on chronic no red flag symptoms today pin point tenderness at the right SI recommend seeing pain management soon given increase of pain, will start prednisone Multifactorial etiology Medication does seem to provide ample benefit Does get benefit from OMT Given her vascular hx, NSAIDs are not an option Gabapentin, for RLS, has been beneficial for her back pain to some degree Will taking oxycodone sparingly - at most twice a day when things are bad But she'll often take one or skip a whole day when she's feeling better Discussed the importance of optimizing mechanics Discussed the rationale of manipulation in the future F/u 1 month or PRN *Patient denies any symptoms of progressively worsening upper/lower extremity weakness, progressively worsening gait abnormality, new onset bowel/bladder incontinence/ urinary retention, or saddle anesthesia. No new or worsening symptoms of fever, chills, night sweats. Ordered: predniSONE, 40 mg = 2 tab(s), Oral, Daily, X 5 day(s), # 10 tab(s), Refills(s) 0, Pharmacy: [id number], 168, cm, 03/05/24 8:34:00 EST, Height/Length Dosing, 83.8, kg, 03/05/24 8:34:00 EST, Weight Dosing 2. Spasm of lumbar paraspinous muscle (M62.830: Muscle spasm of back) 3. Pain of right sacroiliac joint (M53.3: Sacrococcygeal disorders, not elsewhere classified) see #1 may need another injection 4. Peripheral neuropathy (G62.9: Polyneuropathy, unspecified) continue gabapentin Ordered: acetaminophen-oxycodone, 1 tab(s), Oral, BID, 60 tab(s), Refill(s) 0, 30 day supply, [id number], 168, cm, 03/05/24 8:34:00 EST, Height/Length Dosing, 83.8, kg, 03/05/24 8:34:00 EST, Weight Dosing 5. RLS (restless legs syndrome) (G25.81: Restless legs syndrome) Chronic Stable On appropriate medication Continue gabapentin F/u PRN 6. Shoulder pain (M25.519: Pain in unspecified shoulder) chronic sub-optimal control some benefit from injection previously f/u with pain management 7. 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 Somatic dysfunction of cervical region (M99.01: Segmental and somatic dysfunction of cervical region) 10. Somatic dysfunction of thoracic region (M99.02: Segmental and somatic dysfunction of thoracic region) 11. Somatic dysfunction of lumbar region (M99.03: Segmental and somatic dysfunction of lumbar region) 12. Somatic dysfunction of sacral spine (M99.04: Segmental and somatic dysfunction of sacral region) 13. Somatic dysfunction of abdominal region (M99.09: Segmental and somatic dysfunction of abdomen and other regions) 14. Somatic dysfunction of rib cage region (M99.08: Segmental and somatic dysfunction of rib cage) 15. HTN (hypertension) (I10: Essential (primary) hypertension) good control having some concerns re: cost of amlodipine clarify with pharmacist Adult BMI 29.0-29.9 kg/sq m (Z68.29: Body mass index [BMI] 29.0-29.9, adult) Ordered: Body Mass Index (BMI) documented 3008F Current tobacco non-user 1036F Depression Screening Negative 3352F Fall Risk Screen 2 or more w/injury 1100F Influenza immunization administered or previously received 4274F Most recent diastolic blood pressure <80 mm Hg 3078F Systolic BP 130-139 mm Hg (Most Recent) 3075F Other chronic pain (G89.29: Other chronic pain) Follow-up With When Contact Information Dakotah Gallardo DO, GIOVANNY, PED Within 1 month [address] [place] [address] [phone] Additional Instructions: OMT PRN - 40 min slot To go instructions (for follow up): On the day of manipulation, I strongly encourage you to to drink more water to help flush your system after today's treatment Work on using your core muscles more when standing and sitting, and especially when leaning away from your centerline or when lifting things This may take some concentration and work initially but it will eventually become more natural to you Work on shoulder retraction exercises For patients who can tolerate anti-inflammatories and/or tylenol, those medications can help provide some comfort while you work on optimizing function Getting adequate rest is important for managing musculoskeletal pain F/u 1 month or PRN Patient Education Heat Therapy, [id number] Problem List/Past Medical History Ongoing 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 Incontinence without sensory awareness Insomnia Irritable bowel syndrome with predominant constipation Leg pain, left Lumbar radiculopathy, right Major depressive disorder, recurrent, mild Mild cognitive impairment Mixed incontinence OAB (overactive bladder) Obesity due to excess calories Other urethral stricture, female Pain of right sacroiliac joint Patient has healthcare proxy and living will Peripheral neuropathy RLS (restless legs syndrome) S/P knee replacement Severe obstructive sleep apnea Shoulder pain Somatic dysfunction of abdominal region Somatic dysfunction of cervical region Somatic dysfunction of lower extremities Somatic dysfunction of lumbar region Somatic dysfunction of rib cage region Somatic dysfunction of sacral spine Somatic dysfunction of thoracic region Spasm of lumbar paraspinous muscle Stage 3a chronic kidney disease (CKD) Stooped posture Thoracic aorta atherosclerosis Tremor UTI (urinary tract infection) Wears hearing aid in both ears Historical Abdominal pain, generalized Abnormal urinalysis Body mass index (BMI) of 31.0-31.9 in adult Bronchitis with bronchospasm Cervical radiculopathy Chest pain Dizziness WINTERS (dyspnea on exertion) Exposure to second hand smoke Frequent urination Hernia of abdominal wall History of UTI Leg edema Pain in back 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 Rib pain on right side Right hip pain Screening mammogram, encounter for Urinary urgency Procedure/Surgical History Injection of nerve root of lumbar spine using fluoroscopic guidance (12/21/2023), Injection of nerve root of sacral spine [...] Corns and callus, mole removal, Tubal ligation. Medications acetaminophen-oxycodone 325 mg-5 mg Tab, 1 tab(s), Oral, BID amLODIPine 5 mg Tab, 5 mg= 1 tab(s), Oral, Daily, 4 refills cyclobenzaprine 5 mg Tab, 5 mg= 1 tab(s), Oral, Bedtime, 12 refills diclofenac topical 1% gel, 1 elva, Topical, QID, PRN Dulcolax Tab-EC, 2-3 tabs, Oral, Daily gabapentin 300 mg Cap, 300 mg= 1 cap(s), Oral, TID, 11 refills Handicap Placard, See Instructions Maxzide-25 oral tablet, 1 tab(s), Oral, Daily, 4 refills Misc DME Prescription, See Instructions nebulizer supplies, See Instructions, 11 refills omeprazole 20 mg Cap-DR, 20 mg= 1 cap(s), Oral, Daily, 4 refills predniSONE 20 mg Tab, 40 mg= 2 tab(s), Oral, Daily triamcinolone Top 0.1% Crm 15 gram, 1 elva, Topical, BID, 11 refills Tylenol, 500 mg, Oral, q6hr Allergies Chocolate (Anaphylaxis) Adhesive Bandage (Itching, Rash) [...] Previous treatment: None. Household tobacco concerns: No., 01/09/2024 Family History Alcoholism: Father. Metastatic cancer: Mother. Parkinson disease: Father. Parkinson's disease: Father. Primary malignant neoplasm of colon: Mother. Immunizations Vaccine Date Status Comments SARS-CoV-2 (COVID-19) mRNA BNT-162b2 vax 01/18/2024 Recorded [facility] diphtheria/pertussis, acel/tetanus adult 01/18/2024 Recorded influenza virus vaccine, inactivated 11/24/2023 Given influenza virus vaccine, inactivated - Not Given Vaccine Storage zoster vaccine, inactivated 05/22/2023 Recorded zoster vaccine live 02/06/2023 Recorded Zoster Recombinant per [facility] zoster vaccine, inactivated 02/06/2023 Recorded influenza virus vaccine, inactivated 01/09/2023 Given Early/Late Reason: System Down SARS-CoV-2 (COVID-19) [id number] 01/18/2022 Given influenza virus vaccine, inactivated 01/18/2022 Given influenza virus vaccine, inactivated - Not Given Postpone due to refusal SARS-CoV-2 (COVID-19) mRNA BNT-162b2 vax 01/13/2021 Given influenza virus vaccine, inactivated 12/09/2020 Given SARS-CoV-2 (COVID-19) mRNA-1273 vaccine 05/18/2020 Recorded SARS-CoV-2 (COVID-19) mRNA-1273 vaccine 05/18/2020 Recorded [facility] [employer] [facility] scanned with date influenza virus vaccine, inactivated 12/27/2019 Given influenza virus vaccine, inactivated 12/18/2018 Given influenza virus vaccine, inactivated 01/09/2018 Recorded pneumococcal 13-valent vaccine 03/29/2017 Recorded influenza virus vaccine, inactivated 12/08/2016 Recorded influenza virus vaccine, inactivated 12/17/2015 Recorded pneumococcal 23-valent vaccine 01/21/2014 Recorded pneumococcal 23-valent vaccine 12/16/2013 Recorded pneumococcal 23-valent vaccine 01/04/2008 Recorded [1] f/u -; Kaitlinvane Dakotah 01/09/2024 10:47 EDT Result Comment: Electronical ly Signed By: KaitlinDakotah cifuentes DO\.br\Date and Time Signed: 03/05/24 13:37 EST PATIENT EDUCATION Observed: 03/05/2024 9:00 AM Status: F Source: [facility] Patient Education Physical Medicine and Rehabilitation Heat Therapy Heat therapy can help ease sore, stiff, injured, and tight muscles and joints. Heat relaxes your muscles. This may help ease your pain and muscle spasms. What are the risks? If you have any of the following conditions, do not use heat therapy unless your doctor says it is okay. These conditions include: ??? New bruises. ??? Open wounds. ??? Any of these in the area being treated: ? Healing wounds. ? Infected skin. ? Scarred skin. ??? Problems with how blood moves through your body (circulation). ??? Loss of feeling (numbness) in the part of your body that is being treated. ??? Unusual swelling of the part of the body that is being treated. ??? Blood clots. ??? Diabetes. ??? Heart disease. ??? Cancer. ??? Not being able to communicate pain. This may include young children and people who have problems with their brain function (dementia). How to use heat therapy There are different kinds of heat therapy. These include: ??? Moist heat pack. ??? Hot water bottle. ??? Electric heating pad. ??? Heated gel pack. ??? Heated wrap. ??? Warm water bath. Your doctor will tell you how to use heat therapy. In general, you should: 1. Place a towel between your skin and the heat source. 2. Leave the heat on for 20?30 minutes. Your skin may turn pink. 3. Take off the heat if your skin turns bright red. This is very important. If you cannot feel pain, heat, or cold, you have a greater risk of getting burned. Your doctor may also tell you to take a warm water bath. To do this: 1. Put a non-slip pad in the bathtub to prevent a fall. 2. Fill the bathtub with warm water. 3. Check the water temperature. 4. Soak in the water for 15?20 minutes, or as told by your doctor. 5. Be careful when you stand up after the bath. You may feel dizzy. 6. Pat yourself dry after the bath. Do not rub your skin to dry it. General recommendations for heat therapy ??? Be careful not to burn your skin when using heat therapy. High heat or using heat for a long time can cause demarco. ??? Do not sleep while using heat therapy. Only use heat therapy while you are awake. ??? Check your skin during heat therapy. ??? Do not use heat therapy if you have a new injury, especially if you have swelling on the injured area. ??? Do not use heat therapy on areas of your skin that are already irritated, such as with a rash or sunburn. ??? Do not use heat therapy if your skin turns bright red. Contact a doctor if: ??? You have blisters, redness, swelling, or loss of feeling in the area where you use heat therapy. ??? You have new pain. ??? You have pain that gets worse. Summary ??? Heat therapy is the use of heat to help ease sore, stiff, injured, and tight muscles and joints. ??? There are different types of heat therapy. Your doctor will tell you which one to use. ??? Only use heat therapy while you are awake. ??? Watch your skin to make sure you do not get burned while using heat therapy. This information is not intended to replace advice given to you by your health care provider. Make sure you discuss any questions you have with your health care provider. Document Revised: 12/30/2020 Document Reviewed: 12/30/2020 [employer] Patient Education ? 2023 [employer]. 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 Referral Reason: Disease management Case Type: Chronic Care Management Risk Score: -- Case Status: Active (January 03, 2019) Date Assigned: December 19, 2018 Assigned By: Brice Stephenson RN Date Enrolled: January 03, 2019 Assigned Primary Personnel: Dereck Rosario RN Assigned Secondary Personnel: Vinita Wing RNly Y Case Physician: Dakotah Gallardo DO Problems Ongoing 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 Incontinence without sensory awareness Insomnia Irritable bowel syndrome with predominant constipation Leg pain, left Lumbar radiculopathy, right Major depressive disorder, recurrent, mild Mild cognitive impairment Mixed incontinence OAB (overactive bladder) Obesity due to excess calories Other urethral stricture, female Pain of right sacroiliac joint Patient has healthcare proxy and living will Peripheral neuropathy RLS (restless legs syndrome) S/P knee replacement Severe obstructive sleep apnea Shoulder pain Somatic dysfunction of abdominal region Somatic dysfunction of cervical region Somatic dysfunction of lower extremities Somatic dysfunction of lumbar region Somatic dysfunction of rib cage region Somatic dysfunction of sacral spine Somatic dysfunction of thoracic region Spasm of lumbar paraspinous muscle Stage 3a chronic kidney disease (CKD) Stooped posture Thoracic aorta atherosclerosis Tremor UTI (urinary tract infection) Wears hearing aid in both ears Historical Abdominal pain, generalized Abnormal urinalysis Body mass index (BMI) of 31.0-31.9 in adult Bronchitis with bronchospasm Cervical radiculopathy Chest pain Dizziness WINTERS (dyspnea on exertion) Exposure to second hand smoke Frequent urination Hernia of abdominal wall History of UTI Leg edema Pain in back 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 Rib pain on right side Right hip pain Screening mammogram, encounter for Urinary urgency Procedure/Surgical History Injection of nerve root of lumbar spine using fluoroscopic guidance (12/21/2023), Injection of nerve root of sacral spine [...] callus, mole removal, Tubal ligation. Home Medications acetaminophen-oxycodone 325 mg-5 mg Tab, 1 tab(s), Oral, BID amLODIPine 5 mg Tab, 5 mg= 1 tab(s), Oral, Daily, 4 refills cyclobenzaprine 5 mg Tab, 5 mg= 1 tab(s), Oral, Bedtime, 12 refills diclofenac topical 1% gel, 1 elva, Topical, QID, PRN Dulcolax Tab-EC, 2-3 tabs, Oral, Daily gabapentin 300 mg Cap, 300 mg= 1 cap(s), Oral, TID, 11 refills Handicap Placard, See Instructions Maxzide-25 oral tablet, 1 tab(s), Oral, Daily, 4 refills Misc DME Prescription, See Instructions nebulizer supplies, See Instructions, 11 refills omeprazole 20 mg Cap-DR, 20 mg= 1 cap(s), Oral, Daily, 4 refills triamcinolone Top 0.1% Crm 15 gram, 1 elva, Topical, BID, 11 refills Tylenol, 500 mg, Oral, q6hr Allergies Chocolate (Anaphylaxis) Adhesive Bandage (Itching, Rash) [...] Previous treatment: None. Household tobacco concerns: No., 01/09/2024 Family History Alcoholism: Father. Metastatic cancer: Mother. Parkinson disease: Father. Parkinson's disease: Father. Primary malignant neoplasm of colon: Mother. Screenings and Assessments 01/03/19 12:08:00 Result Name Value Comment Phone Call Monitoring Consent Agreed to continue call Phone Verification Patient Information Full name, street address and date of verified CM Program Enrollment Written consent completed 01/03/19 12:00:00 Result Name Value Comment HIPPA Verified Type of Contact In person in the office Information Given by Patient CM Preferred Spoken Language Comoran CM Preferred Written Language Swiss Preferred Communication Mode Verbal Ability to Read/Write Able to read, Able to write Preferred Method of Contact Cell Best Time to Visit or Contact 10-1 pm, 1-5 pm Best Day to Visit or Contact No preference Preferred Way to Send PHI Standard mail Lives In Single level home Number in Household 3 Lives with handicapped brother and daughter. 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 Start Date: 2018 Target: - - Status: - - Barriers: - - Comments: - - Intervention Frequency Status Credit Or Loans Officer Use inhaler as prescribed by PCP - - Done - - Start Water aerobic exercises beginning 01/08/19 2 days per week to include water walking - - Done - - Use nebulizer machine as needed for SOB for COPD. - - Progressing - - 10/12/21 Fill Rx for Rescue pack and call CN if starts medications - - Done - - Goal: Will have improvement in lower leg swelling Start Date: 2020 Target: - - Status: - - Barriers: - - Comments: - - Intervention Frequency Status Credit Or Loans Officer Decrease sodium intake to 2000 mg daily, do not use salt shaker. - - Progressing - - Weigh daily, record and notify CN of 3# weight gain in day or %3 over a week. - - Not done - - Keep appointment with Dr. Sifuentes on 10/13/20 at 0920 - - Done - - 06/08/21 Patient is going to try to return to water aerobics once per week, - - Not done - - Keep legs elevated when sitting - - Progressing - - Goal: Reduce frequency of Urinary Tract infections Start Date: 2021 Target: - - Status: - - Barriers: - - Comments: - - Intervention Frequency Status Credit Or Loans Officer Call office at first signs and symptoms of UTI for urinalysis. - - Progressing - - Drink 64 oz of fluids each day to stay hydrated. - - Progressing - - Go to restroom at first sign of urinary urge and not hold. - - Progressing - - See urologist as needed. - - Progressing - - Botox injections for urinary incontinence every 6 months as needed. 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 Start Date: 2018 Target: - - Status: Met Barriers: - - Comments: - - Intervention Frequency Status Credit Or Loans Officer Start water therapy on January 08 and attend every Monday and each week - - Done - - Patient to call Chiropractor to have diapraghm put back in place as needed. - - Progressing - - Goal: Will have relief from constipation Start Date: 2019 Target: - - Status: Met Barriers: - - Comments: - - Intervention Frequency Status Credit Or Loans Officer Take OTC MiraLax 17 gm 1.5 caps BID - - Done - - Follow up with Title Supervisor as needed. - - Done - - Take Trulance 3 mg daily for constipation - - Done - - Right hernia repari surgery scheduled for 09/07/20. - - Done - - Take Ducolax 2 tab a bedtime as directed - - Done - - Progress Note 02/06/2024 23 minutes. CCM Update for January 2024. Call started at 1224. Called patient for monthly update; spoke to daughter Geneva. She reports that her mother did go to her annual wellness visits. She was having therapy for her shoulder, and it was helpful for about a month. She said her problem with her mother is that she does not want to take any medication for pain until it is really bad. I did let her know it is better to take something when it starts because once it gets out of control it is much harder to get under control. She is using Tylenol for pain two times per day; this helps some. She said her mother does have Percocet but does not like the way it makes her feel. She is also taking gabapentin which makes her tired. She said her mother does not sleep well. She has not had any recent uti. She does have shortness of breath about twice per week. When she is not able to catch her breath, she does check her oxygen with pulse ox and uses supplemental oxygen. She does not have any leg swelling but has been experiencing leg cramps that feel like her legs have gone to sleep. She does have friends that pick her up every Monday to play cards and then they go out to eat. Her daughter brings her to appointments; they tried to use senior transportation but since they left her mother at an appointment, they are very afraid to use it again. Patient is currently taking amlodipine, but it is $40 per month; I will send a WeDidIt card to patient and list of prices with this card. Reviewed upcoming appointments ??? Dr Gallardo for shoulder 03/05/2024 at 0820 and Marilu Cornell PA-C for pain management for shoulder pain. Patient needs ??? needs refill for gabapentin and would like to be okay???d for water therapy at [facility]; she has the paperwork filled out; communication sent to Dr Gallardo Patient wishes to continue monthly CCM calls; CN will call patient again in February. Patient will continue to keep scheduled appointments, take medications as prescribed and continue to stay socially active. Call ended at 1247 Communication Events Date: February 06, 2024 Method: Phone call Type: Outbound Duration (min): 1 Outcome: Left message-voicemail Contact Type: Patient Contact Name: ANANTMATEO aCbrera Notes: CCM update - january 2024 attempted to call patient for monthly follow up - no answer - left message along with cn contact info Created By: Linda Wing RN Date: January 11, 2024 Method: Phone call Type: Outbound Duration (min): 1 Outcome: Left message-voicemail Contact Type: Patient Contact Name: MATEO [place] Notes: [facility] Update - Called patient for December 2023 update - no answer - left message along with cn contact info Created By: Linda Wing RN Date: November 24, 2023 Method: In-person Type: -- Duration (min): 37 Outcome: Case discussion Contact Type: Patient Contact Name: MATEO [place] Notes: [facility] November 2023 update - see case summary note Created By: Linda Wing RN Date: November 23, 2023 Method: Phone call Type: Outbound Duration (min): 1 Outcome: Case discussion Contact Type: Patient emergency contact Contact Name: Geneva - daughter Notes: [facility] Nov 2023 - spoke to daughter - they have appt tomorrow 11/24/2023 and they will speak to me then Created By: Linda Wing RN Date: October 24, 2023 Method: Phone call Type: Outbound Duration (min): 1 Outcome: Left message-voicemail Contact Type: Patient emergency contact Contact Name: [place] Notes: [facility] [place] - called for monthly follow up call - left message along with cn contact information Created By: Linda Wing RN Date: June 09, 2023 Method: Phone call Type: Outbound Duration (min): 7 Outcome: Case discussion Contact Type: academic affairs coordinator Contact Name: Dereck Rosario RN Notes: Called for [facility] CCM. See case summary note. Created By: Dereck Rosario RN Date: April 28, 2023 Method: Phone call Type: Outbound Duration (min): 3 Outcome: Case discussion Contact Type: academic affairs coordinator Contact Name: Dereck Rosario RN Notes: Called for Fe CCM. See case summary note. Created By: Dereck Rosario RN Date: April 05, 2023 Method: Phone call Type: Outbound Duration (min): 15 Outcome: Case discussion Contact Type: academic affairs coordinator Contact Name: Dereck Rosario RN Notes: Called for Peña CCM. See case summary note. Created By: Dereck Rosario RN Date: March 08, 2023 Method: Phone call Type: Outbound Duration (min): 20 Outcome: Case discussion Contact Type: academic affairs coordinator Contact Name: Dereck Rosario RN Notes: Called for Dec CCM. See case summary note. Created By: Dereck Rosario RN Date: March 08, 2023 Method: Phone call Type: Outbound Duration (min): 1 Outcome: Left message-voicemail Contact Type: academic affairs coordinator Contact Name: Dereck Rosario RN Notes: Called for Dec CCM. Left message asking for return phone call. Created By: Dereck Rosario RN Date: January 13, 2023 Method: Phone call Type: Inbound Duration (min): 10 Outcome: Case discussion Contact Type: Patient Contact Name: ANANT MATEO G Notes: CCM patient called, see FT summary note. Created By: Aimnata Mendieta RN Date: January 12, 2023 Method: Phone call Type: Outbound Duration (min): 10 Outcome: Case discussion Contact Type: Complex daycare managerproject manager finance Name: Aminata Mendieta RN Notes: Called patient for CCM follow-up, spoke with daughter see FT summary note. Created By: Aminata Mendieta RN Date: November 23, 2022 Method: Phone call Type: Outbound Duration (min): 1 Outcome: Left message-voicemail Contact Type: Complex daycare managerproject manager finance Name: Aminata Mendieta RN Notes: Attempted to call daughter cell phone for CCM follow-up, no answer, left message asking for a return call. Created By: Aminata Mendieta RN Date: November 23, 2022 Method: Phone call Type: Outbound Duration (min): 1 Outcome: Left message-voicemail Contact Type: Complex daycare managerproject manager finance Name: Aminata Mendieta RN Notes: Attempted to call patient for CCM, no answer left message asking for a return call. Created By: Aminata Mendieta RN Date: August 31, 2022 Method: Phone call Type: Outbound Duration (min): 17 Outcome: Case discussion Contact Type: Pharmacist Contact Name: Nelli Dhillno PharmD Notes: Medication review with pharmacy. See SOAP note. Created By: Aminata Mendieta RN Date: August 23, 2022 Method: Phone call Type: Outbound Duration (min): 7 Outcome: Case discussion Contact Type: Medical facility Contact Name: Aminata Mendieta Notes: spoke with Iris from Patient expereince, please see FT summary note. Created By: Aminata Mendieta RN Date: August 23, 2022 Method: Phone call Type: Outbound Duration (min): 16 Outcome: Case discussion Contact Type: Complex daycare managerproject manager finance Name: Aminata Mendieta RN Notes: Daughter left 2 messages while CCN on vacation, returned call see FT summary note. Created By: Aminata Mendieta RN Date: August 01, 2022 Method: Phone call Type: Inbound Duration (min): 7 Outcome: Case discussion Contact Type: Patient advocate Contact Name: [place] Ny Notes: Daughterr called with updates. See FT summary note. Created By: Aminata Mendieta RN Date: July 21, 2022 Method: Phone call Type: Outbound Duration (min): 15 Outcome: Case discussion Contact Type: Complex daycare managerproject manager finance Name: Aminata Mendieta RN Notes: See FT summary note. Created By: Aminata Mendieta RN Date: July 15, 2022 Method: Phone call Type: Outbound Duration (min): 1 Outcome: Left message-voicemail Contact Type: Complex daycare managerproject manager finance Name: Aminata Mendieta RN Notes: Daughter left message at 1030 asking for a return call, called daughter, no answer, left message to call again. Patient was seen by Dr. Hernandez today in [facility]. Created By: Aminata Mendieta RN Date: June 22, 2022 Method: Phone call Type: Outbound Duration (min): 20 Outcome: Case discussion Contact Type: Complex daycare managerproject manager finance Name: Aminata Mendieta RN Notes: Daughter left message asking for a return call, called patient, spoke with daughter see FT summary note. Created By: Aminata Mendieta RN Date: May 25, 2022 Method: Phone call Type: Inbound Duration (min): 1 Outcome: Case discussion Contact Type: Patient Contact Name: MATEO [place] Notes: Daughter left message that she started Rescue pack and would like a generic refill for Dexilant, see message center note. Created By: Aminata Mendieta RN Date: May 19, 2022 Method: Phone call Type: Inbound Duration (min): 3 Outcome: Case discussion Contact Type: Patient advocate Contact Name: [place] Ny Notes: Daughter called with information for help at hand for Dexilant. see message center note. Created By: Aminata Mendieta RN Date: May 17, 2022 Method: Phone call Type: Inbound Duration (min): 22 Outcome: Case discussion Contact Type: Patient advocate Contact Name: [place] Ny Notes: Daughter Geneva calls with concerns see message center note. Created By: Aminata Mendieta RN Date: May 10, 2022 Method: Phone call Type: Outbound Duration (min): 10 Outcome: Case discussion Contact Type: Complex daycare managerproject manager finance Name: Aminata Mendieta RN Notes: Daughter left message asking for a return call. Called daughter, see FT summary note. Created By: Aminata Mendieta RN Date: March 25, 2022 Method: Phone call Type: Inbound Duration (min): 10 Outcome: Case discussion Contact Type: Patient Contact Name: MATEO YN Notes: CCM patient calls with complaints of thrush again, see message center note. Created By: Aminata Mendieta RN Date: March 16, 2022 Method: Phone call Type: Outbound Duration (min): 5 Outcome: Case discussion Contact Type: Complex daycare managerproject manager finance Name: Aminata Mendieta RN Notes: Called daughter back regarding Prednsone prescription. See message center note. Created By: Aminata Mendieta RN Date: March 16, 2022 Method: Phone call Type: Outbound Duration (min): 1 Outcome: Case discussion Contact Type: Complex daycare managerproject manager finance Name: Juani De La Garza MA Notes: XENIA called patient about prescription for Prednisone. Created By: Aminata Mendieta RN Date: March 15, 2022 Method: Phone call Type: Outbound Duration (min): 1 Outcome: Left message-voicemail Contact Type: Complex daycare managerproject manager finance Name: Aminata Mendieta RN Notes: Left message that Pulmonology office should call tomorrow to schedule patient. Created By: Aminata Mendieta RN Date: March 15, 2022 Method: Phone call Type: Outbound Duration (min): 3 Outcome: Case discussion Contact Type: Specialist Contact Name: Aminata Mendieta RN Notes: Called Pulmonology to see about referral for patient, see message center note. Created By: Aminata Mendieta RN Date: March 04, 2022 Method: Phone call Type: Outbound Duration (min): 6 Outcome: Case discussion Contact Type: Complex daycare managerproject manager finance Name: Aminata Mendieta RN Notes: Called CCM patient for follow-up on thrush, see FT summary note. Created By: Aminata Mendieta RN Date: February 21, 2022 Method: Phone call Type: Inbound Duration (min): 15 Outcome: Case discussion Contact Type: Patient Contact Name: MATEO [place] Notes: CCM patient called started COPD rescue pack 02/18/22. See FT summary note. Created By: Aminata Mendieta RN Date: February 15, 2022 Method: Phone call Type: Outbound Duration (min): 1 Outcome: Case discussion Contact Type: Complex daycare managerproject manager finance Name: Aminata Mendieta RN Notes: CCM patient called for follow-up and to schedule appointment, no answer, left voicemail asking for a return call. Created By: Aminata Mendieta RN Date: January 24, 2022 Method: Phone call Type: Outbound Duration (min): 11 Outcome: Case discussion Contact Type: Complex daycare managerproject manager finance Name: Aminata Mendieta RN Notes: Called CCM patient for follow-up. Created By: Aminata Mendieta RN Date: January 13, 2022 Method: In-person Type: -- Duration (min): 7 Outcome: Case discussion Contact Type: Complex daycare managerproject manager finance Name: Aminata Mendieta RN Notes: Patient in office asking for samples of Stiolto Respimat. Created By: Amianta Mendieta RN Date: January 12, 2022 Method: Phone call Type: Outbound Duration (min): 3 Outcome: Case discussion Contact Type: Complex daycare managerproject manager finance Name: Debbi Hammer Notes: See message center note. Created By: Aminata Mendieta RN Date: January 12, 2022 Method: Phone call Type: Inbound Duration (min): 6 Outcome: Case discussion Contact Type: Patient advocate Contact Name: [place] Ny Notes: Daughter called patient started COPD Rescue pack on 01/09/22, see message center note. Created By: Aminata Mendieta RN Date: December 28, 2021 Method: Phone call Type: Inbound Duration (min): 25 Outcome: Case discussion Contact Type: Patient advocate Contact Name: [place] Ny Notes: daughter called with updates and needs for medications. See message center note. Created By: Aminata Mendieta RN Date: November 30, 2021 Method: Phone call Type: Outbound Duration (min): 18 Outcome: Case discussion Contact Type: Complex daycare managerproject manager finance Name: Aminata Mendieta RN Notes: Called CCM patient for follow-up, see FT summary note. Created By: Aminata Mendieta RN Date: November 23, 2021 Method: Phone call Type: Inbound Duration (min): 5 Outcome: Case discussion Contact Type: Patient advocate Contact Name: -- Notes: Daughter called regarding patient breathing and samples of Stioloto inhaler. See FT summary note. Created By: Aminata Mendieta RN Date: November 02, 2021 Method: Phone call Type: Outbound Duration (min): 1 Outcome: Left message-voicemail Contact Type: Complex daycare managerproject manager finance Name: Aminata Mendieta RN Notes: Left message regarding samples and [facility] phone number and to call if any questions. Created By: Aminata Mendieta RN Date: November 02, 2021 Method: Phone call Type: Outbound Duration (min): 7 Outcome: Case discussion Contact Type: Complex daycare managerproject manager finance Name: -- Notes: CCM follow-up see FT summary note. Created By: Aminata Mendieta RN Date: October 13, 2021 Method: Phone call Type: Outbound Duration (min): 3 Outcome: Case discussion Contact Type: Complex daycare managerproject manager finance Name: Aminata Mendieta RN Notes: Called daughter and explained information regrding [employer] incontinence program. See Ft summary note. Created By: Amniata Mendieta RN Date: October 13, 2021 Method: Phone call Type: Outbound Duration (min): 4 Outcome: Case discussion Contact Type: Vendor Contact Name: Enzo Notes: Called [employer]'s DME to see if there was any coverage for incontinence supplies. Medicare does nort cover but they have incontinence program. See FT summary note. Created By: Aminata Mendieta RN Date: October 13, 2021 Method: Phone call Type: Outbound Duration (min): 10 Outcome: Case discussion Contact Type: Complex daycare managerproject manager finance Name: Aminata Mendieta RN Notes: Called CCM patient to confirm cancellation of appointment and schedule to establish with Dr. Gallardo Created By: Aminata Mendieta RN Date: September 30, 2021 Method: Phone call Type: Outbound Duration (min): 4 Outcome: Case discussion Contact Type: Complex daycare managerproject manager finance Name: Aminata Mendieta RN Notes: Called CCM patient for follow-up after leaving ED AMA yesterday. See message center note. Created By: Aminata Mendieta RN Date: September 29, 2021 Method: Phone call Type: Inbound Duration (min): 6 Outcome: Case discussion Contact Type: Patient advocate Contact Name: [place] Ny Notes: Patient daughter called patient having chest pain, see message center note. Created By: Aminata Mendieta RN Date: September 23, 2021 Method: Phone call Type: Outbound Duration (min): 6 Outcome: Case discussion Contact Type: Complex daycare managerproject manager finance Name: Aminata Mendieta RN Notes: Called CCM for update on cough, see message center note. Created By: Aminata Mendieta RN Date: September 21, 2021 Method: Phone call Type: Outbound Duration (min): 3 Outcome: Case discussion Contact Type: Complex daycare managerproject manager finance Name: Aminata Mendieta RN Notes: Called patient rescheduled appointment and advised to restart Mucinex and chaeck with pharmacy this afternoon for new prescriptions. See message center note. Created By: Aminata Mendieta RN Date: September 21, 2021 Method: Phone call Type: Outbound Duration (min): 3 Outcome: Case discussion Contact Type: Complex daycare managerproject manager finance Name: Aminata Mendieta RN Notes: Patient could not wait on hold for Telehealth visit. Will speak with Dr. sifuentes and call back with plan of care. Created By: Aminata Mendieta RN Date: September 21, 2021 Method: Phone call Type: Outbound Duration (min): 2 Outcome: Case discussion Contact Type: Complex daycare managerproject manager finance Name: Aminata Mendieta RN Notes: Called patient to schedule appointment per Dr. Sifuentes. See message center note. Created By: Aminata Mendieta RN Date: September 20, 2021 Method: Phone call Type: Outbound Duration (min): 2 Outcome: Case discussion Contact Type: Complex daycare managerproject manager finance Name: Aminata Mendieta RN Notes: Called daughter and explained message sent to Dr. Sifuentes and if patient symptoms worsen please take to [facility], will call with answer. Created By: Aminata Mendieta RN Date: September 20, 2021 Method: Phone call Type: Inbound Duration (min): 1 Outcome: Case discussion Contact Type: Patient advocate Contact Name: Geneva Ny Notes: Daughter left message about productive cough, see message center note. Created By: Aminata Mendieta RN Date: September 09, 2021 Method: Phone call Type: Outbound Duration (min): 25 Outcome: Case discussion Contact Type: Complex daycare managerproject manager finance Name: Aminata Mendieta RN Notes: CCM follow-up, see FT summary note. Created By: Aminata Mendieta RN Date: September 08, 2021 Method: Phone call Type: Outbound Duration (min): -- Outcome: No answer Contact Type: Complex daycare managerproject manager finance Name: Aminata Mendieta RN Notes: Attempted to call daughter to notify of samples available, no answer, no voicemail, Will try again. Created By: Aminata Mendieta RN Date: August 30, 2021 Method: Phone call Type: Inbound Duration (min): 4 Outcome: Case discussion Contact Type: Patient advocate Contact Name: Demetria ny Notes: See message center note regarding samples of Stiolto Created By: Aminata Mendieta RN Date: August 05, 2021 Method: Phone call Type: Outbound Duration (min): 10 Outcome: Case discussion Contact Type: Complex daycare managerproject manager finance Name: Aminata Mendieta RN Notes: CCM follow-up, see FT summary note. Created By: Aminata Mendieta RN Date: July 28, 2021 Method: Phone call Type: Outbound Duration (min): 5 Outcome: Case discussion Contact Type: Complex daycare managerproject manager finance Name: Aminata Mendieta RN Notes: Called daughter back, see message center note. Created By: Aminata Mendieta RN Date: July 28, 2021 Method: Phone call Type: Inbound Duration (min): 1 Outcome: Case discussion Contact Type: Patient advocate Contact Name: Geneva Carusoo Notes: Daughter left message asking for a return call. Created By: Aminata Mendieta RN Date: July 19, 2021 Method: Phone call Type: Outbound Duration (min): 5 Outcome: Case discussion Contact Type: Complex daycare managerproject manager finance Name: Aminata Mendieta RN Notes: Called CCM patient regarding cough, see message center note. Created By: Aminata Mendieta RN Date: July 16, 2021 Method: Phone call Type: Inbound Duration (min): 11 Outcome: Case discussion Contact Type: Patient Contact Name: MATEO [place] Notes: Patient returened call with concerns, see message center note. Created By: Aminata Mendieta RN Date: July 16, 2021 Method: Phone call Type: Outbound Duration (min): -- Outcome: Left message-voicemail Contact Type: Complex daycare managerproject manager finance Name: Aminata Mendieta RN Notes: Attempted to call patint for CCM follow-up, no answer, left message asking for a return call. Created By: Aminata Mendieta RN Date: June 30, 2021 Method: Phone call Type: Outbound Duration (min): 22 Outcome: Case discussion Contact Type: Complex daycare managerproject manager finance Name: Aminata Mendieta RN Notes: CCM monthly follow-up. See FT summary note. Created By: Aminata Mendieta RN Date: June 22, 2021 Method: Phone call Type: Outbound Duration (min): 3 Outcome: Case discussion Contact Type: Complex daycare managerproject manager finance Name: Aminata Mendieta RN Notes: Called CCM patient for bi-weekly follow-up. See FT summary note. Created By: Aminata Mendieta RN Date: June 14, 2021 Method: Phone call Type: Outbound Duration (min): 1 Outcome: Left message-voicemail Contact Type: Complex daycare managerproject manager finance Name: Aminata Mendieta RN Notes: Left message explaining prescription had refill at [facility] and to call if any problems. Created By: Aminata Mendieta RN Date: June 14, 2021 Method: Phone call Type: Inbound Duration (min): 1 Outcome: Case discussion Contact Type: Patient advocate Contact Name: Geneva Ny Notes: Left message asking for a refill of Albuterol and return call. Created By: Aminata Mendieta RN Date: June 08, 2021 Method: Phone call Type: Outbound Duration (min): 15 Outcome: Case discussion Contact Type: Complex daycare managerproject manager finance Name: Aminata Mendieta RN Notes: Called CCM patient for follow-up after Botox injections. See FT summary note. Created By: Aminata Mendieta RN Date: May 24, 2021 Method: Phone call Type: Inbound Duration (min): 13 Outcome: Case discussion Contact Type: Patient advocate Contact Name: Geneva Ny Notes: Daughter of CCM patient called regarding a technicians and trades workers referral. SEe FT summary note. Created By: Aminata Mendieta RN Date: May 10, 2021 Method: Phone call Type: Outbound Duration (min): 5 Outcome: Case discussion Contact Type: Complex daycare managerproject manager finance Name: Aminata Mendieta RN Notes: CCm follow-up, see FT summary note. Created By: Aminata Mendieta RN Date: April 19, 2021 Method: Phone call Type: Outbound Duration (min): 1 Outcome: Case discussion Contact Type: Complex daycare managerproject manager finance Name: Aminata Mendieta RN Notes: Called daughter regrding samples of Stioloto Respimat samples. See message center note. Created By: Aminata Mendieta RN Date: April 16, 2021 Method: Phone call Type: Outbound Duration (min): 14 Outcome: Case discussion Contact Type: Complex daycare managerproject manager finance Name: Aminata Mendieta RN Notes: Called CCM patient for follow-up, see case summary note. Created By: Aminata Mendieta RN Date: March 31, 2021 Method: Phone call Type: Outbound Duration (min): 6 Outcome: Case discussion Contact Type: Complex daycare managerproject manager finance Name: Aminata Mendieta RN Notes: CCM follow-up see summary note. Created By: Aminata Mendieta RN Date: March 24, 2021 Method: Phone call Type: Outbound Duration (min): 1 Outcome: Left message-voicemail Contact Type: Complex daycare managerproject manager finance Name: Aminata Mendieta RN Notes: Attempted to return patient call, no answer, left message. See message cente rnote. Created By: Aminata Mendieta RN Date: March 24, 2021 Method: Phone call Type: Inbound Duration (min): 1 Outcome: Case discussion Contact Type: Patient advocate Contact Name: Geneva Carusoo Notes: Patient daughter left message asking for a call back regarding ATB. Created By: Aminata Mendieta RN Date: March 23, 2021 Method: Phone call Type: Outbound Duration (min): 4 Outcome: Case discussion Contact Type: Complex daycare managerproject manager finance Name: Aminata Mendieta RN Notes: Called CCM patient for follow-up on ED visit from 03/20/21. See summary note. Created By: Aminata Mendieta RN Date: March 19, 2021 Method: Phone call Type: Outbound Duration (min): 11 Outcome: Case discussion Contact Type: Complex daycare managerproject manager finance Name: Aminata Mendieta RN Notes: Called CCM patient for follow-up. See summary note. Created By: Aminata Mendieta RN Date: March 01, 2021 Method: Phone call Type: Outbound Duration (min): 2 Outcome: Case discussion Contact Type: Complex daycare managerproject manager finance Name: Aminata Mendieta RN Notes: Called daguther regarding inhaler samples, see messsage center note. Created By: Aminata Mendieta RN Date: February 24, 2021 Method: Phone call Type: Inbound Duration (min): 5 Outcome: Case discussion Contact Type: Patient advocate Contact Name: Geneva Ny Notes: See message center note. Created By: Aminata Mendieta RN Date: February 23, 2021 Method: Phone call Type: Outbound Duration (min): 3 Outcome: Case discussion Contact Type: Complex daycare managerproject manager finance Name: Aminata Mendieta RN Notes: See message center note. Created By: Aminata Mendieta RN Date: February 22, 2021 Method: Phone call Type: Inbound Duration (min): 2 Outcome: Case discussion Contact Type: Patient advocate Contact Name: Geneva Ny Notes: Daughter left detailed message see message note. Created By: Aminata Mendieta RN Date: February 22, 2021 Method: Phone call Type: Inbound Duration (min): 20 Outcome: Case discussion Contact Type: Patient advocate Contact Name: Geneva Ny Notes: Patient daughter called see case summary note. Created By: Aminata Mendieta RN Date: December 31, 2020 Method: Phone call Type: Inbound Duration (min): 2 Outcome: Case discussion Contact Type: Patient advocate Contact Name: Geneva Ny Notes: Daughter called asking about upcoming appointment times and dates. See message cente note. Created By: Aminata Mendieta RN Date: December 22, 2020 Method: Phone call Type: Inbound Duration (min): 2 Outcome: Case discussion Contact Type: Patient Contact Name: MATEO [place] Notes: See case summary note Created By: Aminata Mendieta RN Date: December 22, 2020 Method: Phone call Type: Outbound Duration (min): 3 Outcome: Case discussion Contact Type: Complex daycare managerproject manager finance Name: Aminata Mendieta RN Notes: See message center note. Created By: Aminata Mendieta RN Date: December 22, 2020 Method: Phone call Type: Outbound Duration (min): 5 Outcome: Case discussion Contact Type: Complex daycare managerproject manager finance Name: Aminata Mendieta RN Notes: Called patient regarding messages from Dr. Sifuentes, see message center notes x 2. Created By: Aminata Mendieta RN Date: December 21, 2020 Method: Phone call Type: Outbound Duration (min): 9 Outcome: Case discussion Contact Type: Complex daycare managerproject manager finance Name: Aminata Mendieta RN Notes: See case summary note. Created By: Aminata Mendieta RN Date: December 18, 2020 Method: Phone call Type: Outbound Duration (min): 2 Outcome: Case discussion Contact Type: Patient advocate Contact Name: Dtr- Geneva Notes: CN let her know that was not in today, dtr states that she thinks pt has enough to get thorugh till Monday. CN instucted her to call on Monday if she doesn't hear from Aminata or myself. Created By: Linda Mcdonald RN Date: December 18, 2020 Method: Phone call Type: Outbound Duration (min): 1 Outcome: Case discussion Contact Type: Medical facility Contact Name: [facility] Notes: They have stiolto 5 mcg samples only, message sent to PCP; Created By: Linda Mcdonald RN Date: December 04, 2020 Method: Phone call Type: Outbound Duration (min): 4 Outcome: Case discussion Contact Type: Complex daycare managerproject manager finance Name: Aminata Mendieta RN Notes: See message center note. Created By: Aminata Mendieta RN Date: December 03, 2020 Method: Phone call Type: Inbound Duration (min): 17 Outcome: Case discussion Contact Type: Patient Contact Name: MATEO [place] Notes: [facility] patient called with concerns, see message center note. Created By: Aminata Mendieta RN Date: November 09, 2020 Method: Phone call Type: Outbound Duration (min): 12 Outcome: Case discussion Contact Type: Complex daycare managerproject manager finance Name: Aminata Mendieta RN Notes: Called [facility] patient for update from ED visit yesterday. See case summary note. Created By: Aminata Mendieta RN Date: October 22, 2020 Method: Phone call Type: Inbound Duration (min): 20 Outcome: Case discussion Contact Type: Patient Contact Name: MATEO [place] Notes: CCM call for October, see case summary note. Created By: Aminata Mendieta RN Date: October 22, 2020 Method: Phone call Type: Outbound Duration (min): -- Outcome: No answer Contact Type: Complex daycare managerproject manager finance Name: Aminata Mendieta RN Notes: Attempted to call daughter regarding sample of inhaler, no answer, voicemail full. Created By: Aminata Mendieta RN Date: October 22, 2020 Method: Phone call Type: Outbound Duration (min): -- Outcome: Left message-voicemail Contact Type: Complex daycare managerproject manager finance Name: Aminata Mendieta RN Notes: Attempted o call patint for October [facility] follow-up. No answer, left message asking ofr a return call. Created By: Aminata Mendieta RN Date: October 21, 2020 Method: Phone call Type: Inbound Duration (min): 3 Outcome: Case discussion Contact Type: Patient advocate Contact Name: [place] Ny Notes: Daughter called regarding need for Stioloto Respimt inhaler, see case summary note. Created By: Aminata Mendieta RN Date: September 22, 2020 Method: Phone call Type: Inbound Duration (min): 22 Outcome: Case discussion Contact Type: Patient Contact Name: MATEO [place] Notes: [facility] patient called with questions and concerns. See case summary note. Created By: Aminata Mendieta RN Date: September 08, 2020 Method: Phone call Type: Outbound Duration (min): 3 Outcome: Case discussion Contact Type: Complex daycare managerproject manager finance Name: Aminata Mendieta RN Notes: Called [facility] patient regarding outpatient surgery yesterdy, see case summary note. Created By: Aminata Mendieta RN Date: September 02, 2020 Method: Phone call Type: Outbound Duration (min): 19 Outcome: Case discussion Contact Type: Complex daycare managerproject manager finance Name: Aminata Mendieta RN Notes: [facility] monthly follow-up, see case summary note. Created By: Aminata Mendieta RN Date: September 02, 2020 Method: Phone call Type: Outbound Duration (min): -- Outcome: Left message-voicemail Contact Type: Complex daycare managerproject manager finance Name: Aminata Mendieta RN Notes: Patient left message on [facility] phone asking for a return call, called patient , no answer, left message asking for a return call. Created By: Aminata Mendieta RN Date: August 13, 2020 Method: Phone call Type: Outbound Duration (min): 2 Outcome: Case discussion Contact Type: Complex daycare managerproject manager finance Name: Aminata Mendieta RN Notes: Called [facility] patient regarding medication for ringworm, see message center note. Created By: Aminata Mendieta RN Date: August 11, 2020 Method: Phone call Type: Inbound Duration (min): 3 Outcome: Case discussion Contact Type: Complex daycare managerproject manager finance Name: Lexii Casper MA Notes: See message center note regarding ringworm Created By: Aminata Mendieta RN Date: July 29, 2020 Method: Phone call Type: Outbound Duration (min): 21 Outcome: Case discussion Contact Type: Complex daycare managerproject manager finance Name: Aminata Mendieta RN Notes: [facility] monthly follow-up, patient in ED yesterday. See case summary note. Created By: Aminata Mendieta RN Date: July 10, 2020 Method: Phone call Type: Outbound Duration (min): 26 Outcome: Case discussion Contact Type: Complex daycare managerproject manager finance Name: Aminata Mendieta RN Notes: [facility] monthly call. See case summary note. Created By: Aminata Mendieta RN Date: February 27, 2020 Method: Phone call Type: Outbound Duration (min): 21 Outcome: Case discussion Contact Type: academic affairs coordinator Contact Name: Aminata Mendieta RN Notes: [facility] monthly call, See case summary note. Created By: Aminata Mendieta RN Date: December 31, 2019 Method: Phone call Type: Outbound Duration (min): 2 Outcome: Case discussion Contact Type: Complex daycare managerproject manager finance Name: Aminata Mendieta RN Notes: [facility] patient notified of prescriptions sent in, see message center note. Created By: Aminata Mendieta RN Date: December 30, 2019 Method: Phone call Type: Outbound Duration (min): 22 Outcome: Case discussion Contact Type: Complex daycare managerproject manager finance Name: Aminata Mendieta RN Notes: CCM call, see case summary note. Created By: Aminata Mendieta RN Date: December 09, 2019 Method: Phone call Type: Outbound Duration (min): 7 Outcome: Case discussion Contact Type: Complex daycare managerproject manager finance Name: Aminata Mendieta RN Notes: [facility] monthly call, see case summary note. Created By: Aminata Mendieta RN Date: November 28, 2019 Method: Phone call Type: Outbound Duration (min): 1 Outcome: Case discussion Contact Type: Complex daycare managerproject manager finance Name: Teena Zheng Notes: See message center note. Created By: Aminata Mendieta RN Date: November 28, 2019 Method: Phone call Type: Inbound Duration (min): 3 Outcome: Case discussion Contact Type: Patient Contact Name: ANANT MATEO Peyton Notes: See message center note. Created By: Aminata Mendieta RN Date: November 13, 2019 Method: Phone call Type: Inbound Duration (min): 11 Outcome: Case discussion Contact Type: Complex daycare managerproject manager finance Name: Aminata Mendieta RN Notes: [facility] patient called with concerns, see case summary note. Created By: Aminata Mendieta RN Date: November 05, 2019 Method: Phone call Type: Outbound Duration (min): 8 Outcome: Case discussion Contact Type: Complex daycare managerproject manager finance Name: Aminata Mendieta RN Notes: CCM call October, see case summary note. Created By: Aminata Mendieta RN Date: October 28, 2019 Method: Phone call Type: Inbound Duration (min): 2 Outcome: Case discussion Contact Type: Complex daycare managerproject manager finance Name: Blanka Swain LPN Notes: Patient returned call regarding increase in medications. see message center note. Created By: Aminata Mendieta RN Date: October 28, 2019 Method: Phone call Type: Outbound Duration (min): 3 Outcome: Case discussion Contact Type: Complex daycare managerproject manager finance Name: Case Moon URIAS Notes: Results given regarding abdominal xray and Dr. Sifuentes recommendations, see message center note. Created By: Aminata Mendieta RN Date: October 21, 2019 Method: Phone call Type: Outbound Duration (min): 8 Outcome: Case discussion Contact Type: Complex daycare managerproject manager finance Name: Aminata Mendieta RN Notes: [facility] October call. See case summary note. Created By: Aminata Mendieta RN Date: September 03, 2019 Method: Phone call Type: Outbound Duration (min): 21 Outcome: Case discussion Contact Type: Complex daycare managerproject manager finance Name: Aminata Mendieta RN Notes: [facility] monthly August call. See case summary call. Created By: Aminata Mendieta RN Date: July 30, 2019 Method: Phone call Type: Outbound Duration (min): 21 Outcome: Case discussion Contact Type: social media managerproject manager finance Name: Aminata Mendieta RN Notes: [facility] July call, see caase summary note. Created By: Aminata Mendieta RN Date: July 09, 2019 Method: Phone call Type: Outbound Duration (min): 17 Outcome: Case discussion Contact Type: academic affairs coordinator Contact Name: Aminata Mendieta RN Notes: [facility] bi-weekly call. see case summary note. Created By: Aminata Mendieta RN Date: July 08, 2019 Method: Phone call Type: Outbound Duration (min): -- Outcome: No answer Contact Type: social media managerproject manager finance Name: Aminata Mendieta RN Notes: Attempted to call patient for update on medicaations, no answer, unable to leave voicemail. Created By: Aminata Mendieta RN Date: June 18, 2019 Method: Phone call Type: Outbound Duration (min): -- Outcome: Case discussion Contact Type: social media managerproject manager finance Name: Aminata Mendieta RN Notes: Attempted to callpatietn for bi-weekly CCM call for June, no answer, left message asking for return call. Created By: Aminata Mendieta RN Date: June 04, 2019 Method: Phone call Type: Outbound Duration (min): 13 Outcome: Case discussion Contact Type: social media managerproject manager finance Name: Aminata Mendieta RN Notes: [facility] May call, see case summary note. Created By: Aminata Mendieta RN Date: June 04, 2019 Method: Phone call Type: Outbound Duration (min): 1 Outcome: Left message-voicemail Contact Type: academic affairs coordinator Contact Name: Aimnata Mendieta RN Notes: CCM May call, no answer, left message asking for return call. Created By: Aminata Mendieta RN Date: May 20, 2019 Method: Phone call Type: Outbound Duration (min): 13 Outcome: Case discussion Contact Type: social media managerproject manager finance Name: Aminata Mendieta RN Notes: CCM May call. see case summary note. Created By: Aminata Mendieta RN Date: April 26, 2019 Method: Phone call Type: Inbound Duration (min): 10 Outcome: Case discussion Contact Type: Patient Contact Name: M[place]O [place] Notes: Patient called CN for CCM follow-up. See Case Summary Note. Created By: Brice Stephenson RN Date: April 16, 2019 Method: In-person Type: -- Duration (min): 22 Outcome: Case discussion Contact Type: Patient Contact Name: MATEO [place] Notes: Patient came to primary care office for assistance with medication patient assistance form. See Case Summary note. Created By: Brice Stephenson RN Date: April 16, 2019 Method: Phone call Type: Outbound Duration (min): -- Outcome: Left message-voicemail Contact Type: social media managerproject manager finance Name: Brice Stephenson RN Notes: CN attempted to call patient for CCM follow-up related to assistance with patient drug assistance paperwork completion. Message left with needed information from patient. Asked patient to return call to CN to discuss further. Created By: Brice Stephenson RN Date: April 08, 2019 Method: Phone call Type: Outbound Duration (min): 22 Outcome: Case discussion Contact Type: social media managerproject manager finance Name: Brice Stephenson RN Notes: CN returned call to patient. See Case Summary note. Created By: Brice Stephenson RN Date: April 08, 2019 Method: Phone call Type: Inbound Duration (min): -- Outcome: Case discussion Contact Type: Patient Contact Name: MATEO [place] Notes: Patient called and left message for CN requesting return call. Patient notes she has received paperwork in regards to her refill medication and needs assistance to complete paperwork from PCP office. Asking for return phone call. Created By: Brice Stephenson RN Date: April 08, 2019 Method: Phone call Type: Outbound Duration (min): -- Outcome: No answer Contact Type: social media managerproject manager finance Name: Brice Stephenson RN Notes: CN attempted to return patient's call. No answer. Patient's VM currently noted to be full and unable to leave a message at this time. Created By: Brice Stephenson RN Date: March 11, 2019 Method: Phone call Type: Outbound Duration (min): 5 Outcome: Case discussion Contact Type: social media managerproject manager finance Name: Brice Stephenson RN Notes: CN returned call to patient for CCM follow-up call. See Case Summary note. Created By: Brice Stephenson RN Date: March 10, 2019 Method: Phone call Type: Inbound Duration (min): -- Outcome: Case discussion Contact Type: Patient Contact Name: MATEO [place] Notes: Patient called and left message on CN message system over the weekend. Reports she feels strange but states it is not an emergency. Requesting a call back. Created By: Brice Stephenson RN Date: February 27, 2019 Method: In-person Type: -- Duration (min): 4 Outcome: Case discussion Contact Type: social media managerproject manager finance Name: Brice Stephenson RN Notes: CN returned call to patient after conferring with PCP. Created By: Brice Stephenson RN Date: February 27, 2019 Method: Phone call Type: Inbound Duration (min): 7 Outcome: Case discussion Contact Type: Patient Contact Name: [place] Notes: Patient called CN about Eye appt and BP concerns, CCM follow-up. See Case Summary note. Created By: Brice Stephenson RN Date: February 20, 2019 Method: Phone call Type: Outbound Duration (min): -- Outcome: Left message-voicemail Contact Type: social media managerproject manager finance Name: Brice Stephenson RN Notes: CN attempted to call patient for CCM follow-up call. No answer. Left message asking for return phone call with patient update. Created By: Brice Stephenson RN Date: February 20, 2019 Method: Phone call Type: Inbound Duration (min): 22 Outcome: Case discussion Contact Type: Patient Contact Name: [place] Notes: Patient returned call to CN for CCM follow-up call. See Case Summary note. Created By: Brice Stephenson RN Date: February 08, 2019 Method: Phone call Type: Outbound Duration (min): -- Outcome: Left message-voicemail Contact Type: social media managerproject manager finance Name: Brice Stephenson RN Notes: CN attempted to call patient for CCM follow-up. No answer. Left message asking for return call. Created By: Brice Stephenson RN Date: January 03, 2019 Method: Phone call Type: Outbound Duration (min): 67 Outcome: Case discussion Contact Type: social media managerproject manager finance Name: Brice Stephenson RN Notes: CN met with patient for CCM initial intake assessment. See I-view and Case Summary note. Created By: Brice Stephenson RN AMBULATORY VISIT SUMMARY Observed: 01/28 9:24 AM Status: F Source: [facility] Ambulatory Visit Summary [place] :1945 Visit Date:01/29/2024 Ambulatory Visit Instructions Your Diagnosis Encounter for annual wellness visit (AWV) in Medicare patient Chronic respiratory failure with hypoxia Emphysema/COPD GERD (gastroesophageal reflux disease) Generalized osteoarthritis HTN (hypertension) Major depressive disorder, recurrent, mild Stage 3a chronic kidney disease (CKD) Wears hearing aid in both ears Adult BMI 29.0-29.9 kg/sq m Overweight These Are Your Goals Reduce exacerbations of [...] shaker. - Progressing Keep appointment with Dr. Sifuentes on 10/13/20 at 0920 - Done Keep [...] Prescription) Misc Prescription (nebulizer supplies) acetaminophen (Tylenol) acetaminophen-oxycodone (acetaminophen-oxycodone 325 mg-5 mg Tab) amlodipine (amLODIPine 5 mg Tab) bisacodyl (Dulcolax Tab-EC) cyclobenzaprine (cyclobenzaprine 5 mg Tab) diclofenac topical (diclofenac topical 1% gel) gabapentin (gabapentin 300 mg Cap) hydrochlorothiazide-triamterene (Maxzide-25 oral tablet) omeprazole (omeprazole 20 mg Cap-DR) triamcinolone topical (triamcinolone Top 0.1% Crm 15 gram) Procedures Performed Injection of nerve root of lumbar spine using fluoroscopic guidance (12/21/2023), Injection of nerve root of sacral spine [...] Tubal ligation. Discharge Vitals Heart Rate (Peripheral) 85 Respiratory Rate 16 Blood Pressure 120/80 Height 168 cm Height 66 in Weight 82 kg Weight 180.779 lb BMI 29.05 What to do next Scheduled Follow-Up Appointments Monday 8:20 AM EST With: Dakotah Gallardo DO Where: [place] [address] [place] [address]- Monday 11:15 AM EST With: Marilu Cornell PA-C [facility] Monday 11:00 AM EST With: Where: [address] [place] [address]- Medications What How Much When Why Instructions Unchanged acetaminophen (Tylenol) 500 Milligram By Mouth Every 6 hours Unchanged acetaminophen-oxycodone (acetaminophen-oxycodone 325 mg-5 mg Tab) 1 Tablets By Mouth 2 times a day Lumbar radiculopathy, right Polyneuropathy Acute low back pain with sciatica 30 day supply Unchanged amlodipine (amLODIPine 5 mg Tab) 1 Tablets By Mouth Every day Unchanged bisacodyl (Dulcolax Tab-EC) 2-3 tabs By Mouth Every day adjusts for constipation concerns Unchanged cyclobenzaprine (cyclobenzaprine 5 mg Tab) 1 Tablets By Mouth At bedtime Spasm of lumbar paraspinous muscle Unchanged diclofenac topical (diclofenac topical 1% gel) 1 Application Topical 4 times a day as needed for for pain Left shoulder pain Unchanged gabapentin (gabapentin 300 mg Cap) 1 Capsules By Mouth 3 times a day RLS (restless legs syndrome) Unchanged hydrochlorothiazide-triamterene (Maxzide-25 oral tablet) 1 Tablets By Mouth Every day Unchanged Misc Prescription (Handicap Placard) See instructions Expires in 5 years Unchanged Misc Prescription (Misc DME Prescription) See instructions Wheelchair Unchanged Misc Prescription (nebulizer supplies) See instructions nebulizer supplies dx J44.9 Unchanged omeprazole (omeprazole 20 mg Cap-DR) 1 Capsules By Mouth Every day Chronic GERD Unchanged triamcinolone topical (triamcinolone Top 0.1% Crm 15 gram) 1 Application Topical 2 times a day Allergies Chocolate (Anaphylaxis) Adhesive Bandage (Itching, Rash) aspirin (Nausea) iodinated radiocontrast dyes (hives, Unknown) penicillins (Itching, Rash) sulfamethoxazole (Swelling) Problems Ongoing - Any problem that you are currently receiving treatment for. 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 Incontinence without sensory awareness Insomnia Irritable bowel syndrome with predominant constipation Leg pain, left Lumbar radiculopathy, right Major depressive disorder, recurrent, mild Mild cognitive impairment Mixed incontinence OAB (overactive bladder) Obesity due to excess calories Other urethral stricture, female Pain of right sacroiliac joint Patient has healthcare proxy and living will Peripheral neuropathy RLS (restless legs syndrome) S/P knee replacement Severe obstructive sleep apnea Shoulder pain Somatic dysfunction of abdominal region Somatic dysfunction of cervical region Somatic dysfunction of lower extremities Somatic dysfunction of lumbar region Somatic dysfunction of rib cage region Somatic dysfunction of sacral spine Somatic dysfunction of thoracic region Spasm of lumbar paraspinous muscle Stage 3a chronic kidney disease (CKD) Stooped posture Thoracic aorta atherosclerosis Tremor UTI (urinary tract infection) Wears hearing aid in both ears Historical - Any problem that you are no longer receiving treatment for. Abdominal pain, generalized Abnormal urinalysis Body mass index (BMI) of 31.0-31.9 in adult Bronchitis with bronchospasm Cervical radiculopathy Chest pain Dizziness WINTERS (dyspnea on exertion) Exposure to second hand smoke Frequent urination Hernia of abdominal wall History of UTI Leg edema Pain in back 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 Rib pain on right side Right hip pain Screening mammogram, encounter for Urinary urgency Patient Survey You may receive a survey via text or e-mail asking about your office visit. Please share your experience with us by completing your survey. We appreciate your feedback and thank you for choosing us for your care. Education Materials Preventive Care 65 Years and Older, Female Preventive care refers to lifestyle choices and visits with your health care provider that can promote health and wellness. Preventive care visits are also called wellness exams. What can I expect for my preventive care visit? Counseling Your health care provider may ask you questions about your: ??? Medical history, including: ? Past medical problems. ? Family medical history. ? and menstrual history. ? History of falls. ??? Current health, including: ? Memory and ability to understand (cognition). ? Emotional well-being. ? Home life and relationship well-being. ? Sexual activity and sexual health. ??? Lifestyle, including: ? Alcohol, nicotine or tobacco, and drug use. ? Access to firearms. ? Diet, exercise, and sleep habits. ? Work and work environment. ? Sunscreen use. ? Safety issues such as seatbelt and bike helmet use. Physical exam Your health care provider will check your: ??? Height and weight. These may be used to calculate your BMI (body mass index). BMI is a measurement that tells if you are at a healthy weight. ??? Waist circumference. This measures the distance around your waistline. This measurement also tells if you are at a healthy weight and may help predict your risk of certain diseases, such as type 2 diabetes and high blood pressure. ??? Heart rate and blood pressure. ??? Body temperature. ??? Skin for abnormal spots. What immunizations do I need? Vaccines are usually given at various ages, according to a schedule. Your health care provider will recommend vaccines for you based on your age, medical history, and lifestyle or other factors, such as travel or where you work. What tests do I need? Screening Your health care provider may recommend screening tests for certain conditions. This may include: ??? Lipid and cholesterol levels. ??? Hepatitis C test. ??? Hepatitis B test. ??? HIV (human immunodeficiency virus) test. ??? STI (sexually transmitted infection) testing, if you are at risk. ??? Lung cancer screening. ??? Colorectal cancer screening. ??? Diabetes screening. This is done by checking your blood sugar (glucose) after you have not eaten for a while (fasting). ??? Mammogram. Talk with your health care provider about how often you should have regular mammograms. ??? BRCA-related cancer screening. This may be done if you have a family history of breast, ovarian, tubal, or peritoneal cancers. ??? Bone density scan. This is done to screen for osteoporosis. Talk with your health care provider about your test results, treatment options, and if necessary, the need for more tests. Follow these instructions at home: Eating and drinking ??? Eat a diet that includes fresh fruits and vegetables, whole grains, lean protein, and low-fat dairy products. Limit your intake of foods with high amounts of sugar, saturated fats, and salt. ??? Take vitamin and mineral supplements as recommended by your health care provider. ??? Do not drink alcohol if your health care provider tells you not to drink. ??? If you drink alcohol: ? Limit how much you have to 0???1 drink a day. ? Know how much alcohol is in your drink. In the [place] one drink equals one 12 oz bottle of beer (355 mL), one 5 oz glass of wine (148 mL), or one 1??? oz glass of hard liquor (44 mL). Lifestyle ??? [place] your teeth every morning and night with fluoride toothpaste. Floss one time each day. ??? Exercise for at least 30 minutes 5 or more days each week. ??? Do not use any products that contain nicotine or tobacco. These products include cigarettes, chewing tobacco, and vaping devices, such as e-cigarettes. If you need help quitting, ask your health care provider. ??? Do not use drugs. ??? If you are sexually active, practice safe sex. Use a condom or other form of protection in order to prevent STIs. ??? Take aspirin only as told by your health care provider. Make sure that you understand how much to take and what form to take. Work with your health care provider to find out whether it is safe and beneficial for you to take aspirin daily. ??? Ask your health care provider if you need to take a cholesterol-lowering medicine (statin). ??? Find healthy ways to manage stress, such as: ? Meditation, yoga, or listening to music. ? Journaling. ? Talking to a trusted person. ? Spending time with friends and family. ??? Minimize exposure to UV radiation to reduce your risk of skin cancer. Safety ??? Always wear your seat belt while driving or riding in a vehicle. ??? Do not drive: ? If you have been drinking alcohol. Do not ride with someone who has been drinking. ? When you are tired or distracted. ? While texting. ? If you have been using any mind-altering substances or drugs. ??? Wear a helmet and other protective equipment during sports activities. ??? If you have firearms in your house, make sure you follow all gun safety procedures. What's next? Visit your health care provider once a year for an annual wellness visit. ??? Ask your health care provider how often you should have your eyes and teeth checked. ??? Stay up to date on all vaccines. This information is not intended to replace advice given to you by your health care provider. Make sure you discuss any questions you have with your health care provider. Document Revised: 08/25/2021 Document Reviewed: 08/25/2021 [employer] Patient Education ??? 2023 [employer] Preventing Health Risks of Being Overweight Maintaining a healthy body weight is an important part of your overall health. Your healthy body weight depends on your age, gender, and height. Being overweight puts you at risk for many health problems. You can make changes to your diet and lifestyle to prevent these risks. Consider working with a health care provider or a dietitian to make these changes. How can being overweight affect me? Being overweight can affect you for your entire life. You may develop joint or bone problems that make it painful or difficult for you to play sports or do activities you enjoy. Being overweight also puts stress on your heart and lungs and can lead to medical problems such as: ??? Heart disease. ??? Diabetes. ??? Some types of cancer. ??? Stroke. Eating healthy and being active helps you lose weight and prevents health problems caused by being overweight. Making these changes can also help you manage stress, feel better mentally, and connect with friends and family. What can increase my risk? In addition to certain diet and lifestyle choices, some other factors that may make you more likely to be overweight include: ??? Having a family history of obesity. ??? Living in an area with limited access to: ? [place], recreation centers, or sidewalks. ? Healthy food choices, such as grocery stores and farmers' markets. What actions can I take to prevent health risks of being overweight? Nutrition ??? Eat only as much as your body needs. In most cases, this is about 2,000 calories a day, but the amount varies depending on your height, gender, and activity level. Ask your health care provider how many calories you should have each day. Eating more than your body needs on a regular basis can cause you to become overweight or obese. ??? Eat slowly, and stop eating when you feel full. ??? Choose healthy foods, including: ? Fruits and vegetables. ? Lean meats. ? Low-fat dairy products. ? High-fiber foods, such as whole grains and beans. ? Healthy snacks like vegetable sticks, a piece of fruit, or a small amount of yogurt or cheese. ??? Avoid foods and drinks that are high in sugar, salt (sodium), saturated fat, or trans fat. This includes: ? Many desserts such as candy, cookies, and ice cream. ? Soda. ? Fried foods. ? Processed, precooked, or cured meat, such as hot dogs, sausages, or meat loaves. ? Prepackaged snack foods. Lifestyle ??? Exercise for at least 150 minutes a week to prevent weight gain, or as often as recommended by your health care provider. Do moderate-intensity exercise, such as brisk walking. ? Spread it out by exercising for 30 minutes 5 days a week, or in short 10-minute bursts several times a day. ??? Find other ways to stay active and burn calories, such as yard work or a hobby that involves physical activity. ??? Get at least 8 hours of sleep each night. When you are well rested, you are more likely to be active and make healthy choices during the day. To sleep better: ? Try to go to bed and wake up at about the same time every day. ? Keep your bedroom dark, quiet, and cool. ? Make sure that your bed is comfortable. ? Avoid stimulating activities, such as watching television or exercising, for at least an hour before bedtime. Where to find support You can get support for preventing health risks of being overweight from: ??? Your health care provider or a dietitian. They can provide guidance about healthy eating and healthy lifestyle choices. ??? Weight loss support groups, online or in-person. Where to find more information ??? MyPlate: www.choosemyplate.gov ? This an online tool that provides personalized recommendations about foods to eat each day. ??? The Centers for Disease Control and Prevention: www.cdc.gov/healthyweight ? This resource gives tips for managing weight and having an active lifestyle. Summary ??? Eating healthy and being active helps you lose weight and prevents health problems caused by being overweight. ??? Being overweight puts stress on your heart and lungs and can lead to medical problems such as diabetes, heart disease, some types of cancer, and stroke. This information is not intended to replace advice given to you by your health care provider. Make sure you discuss any questions you have with your health care provider. Document Revised: 09/24/2021 Document Reviewed: 09/24/2021 [employer] Patient Education ??? 2023 [employer] Hypertension, Adult High blood pressure (hypertension) is when the force of blood pumping through the arteries is too strong. The arteries are the blood vessels that carry blood from the heart throughout the body. Hypertension forces the heart to work harder to pump blood and may cause arteries to become narrow or stiff. Untreated or uncontrolled hypertension can lead to a heart attack, heart failure, a stroke, kidney disease, and other problems. A blood pressure reading consists of a higher number over a lower number. Ideally, your blood pressure should be below 120/80. The first ( top ) number is called the systolic pressure. It is a measure of the pressure in your arteries as your heart beats. The second ( bottom ) number is called the diastolic pressure. It is a measure of the pressure in your arteries as the heart relaxes. What are the causes? The exact cause of this condition is not known. There are some conditions that result in high blood pressure. What increases the risk? Certain factors may make you more likely to develop high blood pressure. Some of these risk factors are under your control, including: ??? Smoking. ??? Not getting enough exercise or physical activity. ??? Being overweight. ??? Having too much fat, sugar, calories, or salt (sodium) in your diet. ??? Drinking too much alcohol. Other risk factors include: ??? Having a personal history of heart disease, diabetes, high cholesterol, or kidney disease. ??? Stress. ??? Having a family history of high blood pressure and high cholesterol. ??? Having obstructive sleep apnea. ??? Age. The risk increases with age. What are the signs or symptoms? High blood pressure may not cause symptoms. Very high blood pressure (hypertensive crisis) may cause: ??? Headache. ??? Fast or irregular heartbeats (palpitations). ??? Shortness of breath. ??? Nosebleed. ??? Nausea and vomiting. ??? Vision changes. ??? Severe chest pain, dizziness, and seizures. How is this diagnosed? This condition is diagnosed by measuring your blood pressure while you are seated, with your arm resting on a flat surface, your legs uncrossed, and your feet flat on the floor. The cuff of the blood pressure monitor will be placed directly against the skin of your upper arm at the level of your heart. Blood pressure should be measured at least twice using the same arm. Certain conditions can cause a difference in blood pressure between your right and left arms. If you have a high blood pressure reading during one visit or you have normal blood pressure with other risk factors, you may be asked to: ??? Return on a different day to have your blood pressure checked again. ??? Monitor your blood pressure at home for 1 week or longer. If you are diagnosed with hypertension, you may have other blood or imaging tests to help your health care provider understand your overall risk for other conditions. How is this treated? This condition is treated by making healthy lifestyle changes, such as eating healthy foods, exercising more, and reducing your alcohol intake. You may be referred for counseling on a healthy diet and physical activity. Your health care provider may prescribe medicine if lifestyle changes are not enough to get your blood pressure under control and if: ??? Your systolic blood pressure is above 130. ??? Your diastolic blood pressure is above 80. Your personal target blood pressure may vary depending on your medical conditions, your age, and other factors. Follow these instructions at home: Eating and drinking ??? Eat a diet that is high in fiber and potassium, and low in sodium, added sugar, and fat. An example of this eating plan is called the DASH diet. DASH stands for Dietary Approaches to Stop Hypertension. To eat this way: ? Eat plenty of fresh fruits and vegetables. Try to fill one half of your plate at each meal with fruits and vegetables. ? Eat whole grains, such as whole-wheat pasta, brown rice, or whole-grain bread. Fill about one fourth of your plate with whole grains. ? Eat or drink low-fat dairy products, such as skim milk or low-fat yogurt. ? Avoid fatty cuts of meat, processed or cured meats, and poultry with skin. Fill about one fourth of your plate with lean proteins, such as fish, chicken without skin, beans, eggs, or tofu. ? Avoid pre-made and processed foods. These tend to be higher in sodium, added sugar, and fat. ??? Reduce your daily sodium intake. Many people with hypertension should eat less than 1,500 mg of sodium a day. ??? Do not drink alcohol if: ? Your health care provider tells you not to drink. ? You are , may be , or are planning to become . ??? If you drink alcohol: ? Limit how much you have to: ? 0???1 drink a day for women. ? 0???2 drinks a day for men. ? Know how much alcohol is in your drink. In the [place] one drink equals one 12 oz bottle of beer (355 mL), one 5 oz glass of wine (148 mL), or one 1??? oz glass of hard liquor (44 mL). Lifestyle ??? Work with your health care provider to maintain a healthy body weight or to lose weight. Ask what an ideal weight is for you. ??? Get at least 30 minutes of exercise that causes your heart to beat faster (aerobic exercise) most days of the week. Activities may include walking, swimming, or biking. ??? Include exercise to strengthen your muscles (resistance exercise), such as Pilates or lifting weights, as part of your weekly exercise routine. Try to do these types of exercises for 30 minutes at least 3 days a week. ??? Do not use any products that contain nicotine or tobacco. These products include cigarettes, chewing tobacco, and vaping devices, such as e-cigarettes. If you need help quitting, ask your health care provider. ??? Monitor your blood pressure at home as told by your health care provider. ??? Keep all follow-up visits. This is important. Medicines ??? Take [id number] and prescription medicines only as told by your health care provider. Follow directions carefully. Blood pressure medicines must be taken as prescribed. ??? Do not skip doses of blood pressure medicine. Doing this puts you at risk for problems and can make the medicine less effective. ??? Ask your health care provider about side effects or reactions to medicines that you should watch for. Contact a health care provider if you: ??? Think you are having a reaction to a medicine you are taking. ??? Have headaches that keep coming back (recurring). ??? Feel dizzy. ??? Have swelling in your ankles. ??? Have trouble with your vision. Get help right away if you: ??? Develop a severe headache or confusion. ??? Have unusual weakness or numbness. ??? Feel faint. ??? Have severe pain in your chest or abdomen. ??? Vomit repeatedly. ??? Have trouble breathing. These symptoms may be an emergency. Get help right away. Call 911. ??? Do not wait to see if the symptoms will go away. ??? Do not drive yourself to the hospital. Summary ??? Hypertension is when the force of blood pumping through your arteries is too strong. If this condition is not controlled, it may put you at risk for serious complications. ??? Your personal target blood pressure may vary depending on your medical conditions, your age, and other factors. For most people, a normal blood pressure is less than 120/80. ??? Hypertension is treated with lifestyle changes, medicines, or a combination of both. Lifestyle changes include losing weight, eating a healthy, low-sodium diet, exercising more, and limiting alcohol. This information is not intended to replace advice given to you by your health care provider. Make sure you discuss any questions you have with your health care provider. Document Revised: 01/04/2022 Document Reviewed: 01/04/2022 [employer] Patient Education ??? 2023 [employer] Heart Disease Prevention Heart disease is the leading cause of in the world. Coronary artery disease is the most common cause of heart disease. This condition results when cholesterol and other substances (plaque) build up inside the garrett of the blood vessels that supply your heart muscle (arteries). This buildup in arteries is called atherosclerosis. You can take actions to lower your risk of heart disease. How can heart disease affect me? Heart disease can cause many unpleasant symptoms and complications, such as: ??? Chest pain (angina). ??? Reduced or blocked blood flow to your heart. This can cause: ? Irregular heartbeats (arrhythmias). ? Heart attack. ? Heart failure. What can increase my risk? The following factors may make you more likely to develop this condition: ??? High blood pressure (hypertension). ??? High cholesterol. ??? A diet high in saturated fats or trans fats. ??? Obesity. ??? Diabetes. ??? Having a family history of heart disease. ??? Certain lifestyle factors, including: ? Smoking. ? Lack of physical activity. ? Drinking too much alcohol. What actions can I take to prevent heart disease? Nutrition ??? Follow a heart-healthy eating plan as told by your health care provider. Examples include the DASH eating plan. DASH stands for Dietary Approaches to Stop Hypertension. ??? Generally, it is recommended that you: ? Eat less salt (sodium). Ask your health care provider how much sodium is safe for you. Most people should have less than 2,300 mg each day. ? Limit unhealthy fats, such as saturated and trans fats, in your diet. You can do this by eating low-fat dairy products, eating less red meat, and avoiding processed foods. ? Eat healthy fats (omega-3 fatty acids). These are found in fish, such as mackerel or salmon. ? Eat more fruits and vegetables. You should try to fill one-half of your plate with fruits and vegetables at each meal. ? Eat more whole grains. ? Avoid foods and drinks that have added sugars. Try to limit how much added sugar you have to: ? Less than 25 grams a day for women. ? Less than 36 grams a day for men. Lifestyle ??? Get regular exercise. This is one of the most important things you can do for your health. Generally, it is recommended that you: ? Exercise for at least 30 minutes on most days of the week (150 minutes each week). This should be exercise that causes your heart to beat faster (aerobic exercise). ? Add strength exercises on at least 2 days each week. ??? Do not use any products that contain nicotine or tobacco. These products include cigarettes, chewing tobacco, and vaping devices, such as e-cigarettes. These can damage your heart and blood vessels. If you need help quitting, ask your health care provider. Alcohol use ??? Do not drink alcohol if: ? Your health care provider tells you not to drink. ? You are , may be , or are planning to become . ??? If you drink alcohol: ? Limit how much you have to: ? 0???1 drink a day for women. ? 0???2 drinks a day for men. ? Know how much alcohol is in your drink. In the [place] one drink equals one 12 oz bottle of beer (355 mL), one 5 oz glass of wine (148 mL), or one 1??? oz glass of hard liquor (44 mL). Medicines ??? Take [id number] and prescription medicines only as told by your health care provider. ??? Work with your health care provider to find out whether it is safe and beneficial for you to take aspirin daily. Make sure that you understand how much to take and what form to take. ??? Depending on your risk factors, your health care provider may prescribe medicines to lower your risk of heart disease or to control related conditions. You may take medicine to: ? Lower cholesterol. ? Control blood pressure. ? Control diabetes. General information ??? Keep your blood pressure under control, as recommended by your health care provider. For most healthy people, the upper number of their blood pressure (systolic) should be no higher than 120, and the lower number (diastolic) no higher than 80. Treatment may be needed if your blood pressure is higher than 130/80. ??? Have your blood pressure checked at least every 2 years. Your health care provider may check your blood pressure more often if you have high blood pressure. ??? After age 20, have your cholesterol checked every 4???6 years. If you have risk factors for heart disease, you may need to have it checked more often. Treatment may be needed if your cholesterol is high. ??? Have your body mass index (BMI) checked every year. Your health care provider can calculate your BMI from your height and weight. ??? Check your waist circumference. It should be: ? No more than 35 inches (89 cm) for women who are not . ? No more than 40 inches (102 cm) for men. ??? Work with your health care provider to lose weight, if needed, or to maintain a healthy weight. Where to find more information: ??? Centers for Disease Control and Prevention: www.cdc.gov/heartdisease ??? [place] [employer]: www.heart.org Summary ??? Heart disease is the leading cause of in the world. ??? Heart disease can cause chest pain, abnormal heart rhythms, heart attack, and heart failure. ??? Some of the risk factors for heart disease include high blood pressure, high cholesterol, and smoking. ??? You can take actions to lower your chances of developing heart disease. Work with your health care provider to reduce your risk by following a heart-healthy diet, being physically active, and controlling your weight, blood pressure, and cholesterol level. This information is not intended to replace advice given to you by your health care provider. Make sure you discuss any questions you have with your health care provider. Document Revised: 10/27/2021 Document Reviewed: 10/27/2021 [employer] Patient Education ??? 2023 [employer]. Eating Plan for Chronic Obstructive Pulmonary Disease Chronic obstructive pulmonary disease (COPD) causes symptoms such as shortness of breath, coughing, and chest discomfort. These symptoms can make it difficult to eat enough to maintain a healthy weight. Generally, people with COPD should eat a diet that is high in calories, protein, and other nutrients to maintain body weight and to keep the lungs as healthy as possible. Depending on the medicines you take and other health conditions you may have, your health care provider may give you additional recommendations on what to eat or avoid. Talk with your health care provider about your goals for body weight, and work with a dietitian to develop an eating plan that is right for you. What are tips for following this plan? Reading food labels ??? Avoid foods with more than 300 milligrams (mg) of salt (sodium) per serving. ??? Choose foods that contain at least 4 grams (g) of fiber per serving. Try to eat 20???30 g of fiber each day. ??? Choose foods that are high in calories and protein, such as nuts, beans, yogurt, and cheese. Shopping ??? Do not buy foods labeled as diet, low-calorie, or low-fat. ??? If you are able to eat dairy products: ? Avoid low-fat or skim milk. ? Buy dairy products that have at least 2% fat. ??? Buy nutritional supplement drinks. ??? Buy grains and prepared foods labeled as enriched or fortified. ??? Consider buying low-sodium, pre-made foods to conserve energy for eating. Cooking ??? Add dry milk or protein powder to smoothies. ??? Cook with healthy fats, such as olive oil, canola oil, sunflower oil, and grapeseed oil. ??? Add oil, butter, cream cheese, or nut butters to foods to increase fat and calories. ??? To make foods easier to chew and swallow: ? Cook vegetables, pasta, and rice until soft. ? Cut or grind meat into very small pieces. ? Dip breads in liquid. Meal planning ??? Eat when you feel hungry. ??? Eat 5???6 small meals throughout the day. ??? Drink 6???8 glasses of water each day. ??? Do not drink liquids with meals. Drink liquids at the end of the meal to avoid feeling full too quickly. ??? Eat a variety of fruits and vegetables every day. ??? Ask for assistance from family or friends with planning and preparing meals as needed. ??? Avoid foods that cause you to feel bloated, such as carbonated drinks, fried foods, beans, broccoli, cabbage, and apples. ??? For older adults, ask your local agency on aging whether you are eligible for meal assistance programs, such as Meals on Wheels. Lifestyle ??? Do not smoke. ??? Eat slowly. Take small bites and chew food well before swallowing. ??? Do not overeat. This may make it more difficult to breathe after eating. ??? Sit up while eating. ??? If needed, continue to use supplemental oxygen while eating. ??? Rest or relax for 30 minutes before and after eating. ??? Monitor your weight as told by your health care provider. ??? Exercise as told by your health care provider. What foods should I eat? Fruits All fresh, dried, canned, or frozen fruits that do not cause gas. Vegetables All fresh, canned (no salt added), or frozen vegetables that do not cause gas. Grains Whole-grain bread. Enriched whole-grain pasta. Fortified whole-grain cereals. Fortified rice. Quinoa. Meats and other proteins Lean meat. Poultry. Fish. Dried beans. Unsalted nuts. Tofu. Eggs. Nut butters. Dairy Whole or 2% milk. Cheese. Yogurt. Fats and oils Walker oil. Canola oil. Butter. Margarine. Beverages Water. Vegetable juice (no salt added). Decaffeinated coffee. Decaffeinated or herbal tea. Seasonings and condiments Fresh or dried herbs. Low-salt or salt-free seasonings. Low-sodium soy sauce. The items listed above may not be a complete list of foods and beverages you can eat. Contact a dietitian for more information. What foods should I avoid? Fruits Fruits that cause gas, such as apples or melon. Vegetables Vegetables that cause gas, such as broccoli, Exchange sprouts, cabbage, cauliflower, and onions. Canned vegetables with added salt. Meats and other proteins Fried meat. Salt-cured meat. Processed meat. Dairy Fat-free or low-fat milk, yogurt, or cheese. Processed cheese. Beverages Carbonated drinks. Caffeinated drinks, such as coffee, tea, and soft drinks. Juice. Alcohol. Vegetable juice with added salt. Seasonings and condiments Salt. Seasoning mixes with salt. Soy sauce. Pickles. Other foods Clear soup or broth. Fried foods. Prepared frozen meals. The items listed above may not be a complete list of foods and beverages you should avoid. Contact a dietitian for more information. Summary ??? COPD symptoms can make it difficult to eat enough to maintain a healthy weight. ??? A COPD eating plan can help you maintain your body weight and keep your lungs as healthy as possible. ??? Eat a diet that is high in calories, protein, and other nutrients. Read labels to make sure that you are getting the right nutrients. Cook foods to make them easier to chew and swallow. ??? Eat 5???6 small meals throughout the day, and avoid foods that cause gas or make you feel bloated. This information is not intended to replace advice given to you by your health care provider. Make sure you discuss any questions you have with your health care provider. Document Revised: 01/05/2021 Document Reviewed: 01/05/2021 [employer] Patient Education ??? 2023 [employer] DASH Eating Plan DASH stands for Dietary Approaches to Stop Hypertension. The DASH eating plan is a healthy eating plan that has been shown to: ??? Lower high blood pressure (hypertension). ??? Reduce your risk for type 2 diabetes, heart disease, and stroke. ??? Help with weight loss. What are tips for following this plan? Reading food labels ??? Check food labels for the amount of salt (sodium) per serving. Choose foods with less than 5 percent of the Daily Value (DV) of sodium. In general, foods with less than 300 milligrams (mg) of sodium per serving fit into this eating plan. ??? To find whole grains, look for the word whole as the first word in the ingredient list. Shopping ??? Buy products labeled as low-sodium or no salt added. ??? Buy fresh foods. Avoid canned foods and pre-made or frozen meals. Cooking ??? Try not to add salt when you cook. Use salt-free seasonings or herbs instead of table salt or sea salt. Check with your health care provider or pharmacist before using salt substitutes. ??? Do not cornell foods. Cook foods in healthy ways, such as baking, boiling, grilling, roasting, or broiling. ??? Cook using oils that are good for your heart. These include olive, canola, avocado, soybean, and sunflower oil. Meal planning ??? Eat a balanced diet. This should include: ? 4 or more servings of fruits and 4 or more servings of vegetables each day. Try to fill half of your plate with fruits and vegetables. ? 6???8 servings of whole grains each day. ? 6 or less servings of lean meat, poultry, or fish each day. 1 oz is 1 serving. A 3 oz (85 g) serving of meat is about the same size as the palm of your hand. One egg is 1 oz (28 g). ? 2???3 servings of low-fat dairy each day. One serving is 1 cup (237 mL). ? 1 serving of nuts, seeds, or beans 5 times each week. ? 2???3 servings of heart-healthy fats. Healthy fats called omega-3 fatty acids are found in foods such as walnuts, flaxseeds, fortified milks, and eggs. These fats are also found in cold-water fish, such as sardines, salmon, and mackerel. ??? Limit how much you eat of: ? Canned or prepackaged foods. ? Food that is high in trans fat, such as fried foods. ? Food that is high in saturated fat, such as fatty meat. ? Desserts and other sweets, sugary drinks, and other foods with added sugar. ? Full-fat dairy products. ??? Do not salt foods before eating. ??? Do not eat more than 4 egg yolks a week. ??? Try to eat at least 2 vegetarian meals a week. ??? Eat more home-cooked food and less restaurant, buffet, and fast food. Lifestyle ??? When eating at a restaurant, ask if your food can be made with less salt or no salt. ??? If you drink alcohol: ? Limit how much you have to: ? 0???1 drink a day if you are female. ? 0???2 drinks a day if you are male. ? Know how much alcohol is in your drink. In the [place] one drink is one 12 oz bottle of beer (355 mL), one 5 oz glass of wine (148 mL), or one 1??? oz glass of hard liquor (44 mL). General information ??? Avoid eating more than 2,300 mg of salt a day. If you have hypertension, you may need to reduce your sodium intake to 1,500 mg a day. ??? Work with your provider to stay at a healthy body weight or lose weight. Ask what the best weight range is for you. ??? On most days of the week, get at least 30 minutes of exercise that causes your heart to beat faster. This may include walking, swimming, or biking. ??? Work with your provider or dietitian to adjust your eating plan to meet your specific calorie needs. What foods should I eat? Fruits All fresh, dried, or frozen fruit. Canned fruits that are in their natural juice and do not have sugar added to them. Vegetables Fresh or frozen vegetables that are raw, steamed, roasted, or grilled. Low- sodium or reduced-sodium tomato and vegetable juice. Low-sodium or reduced-sodium tomato sauce and tomato paste. Low-sodium or reduced-sodium canned vegetables. Grains Whole-grain or whole-wheat bread. Whole-grain or whole-wheat pasta. Brown rice. Oatmeal. Quinoa. Bulgur. Whole-grain and low-sodium cereals. Haley bread. Low- fat, low-sodium crackers. Whole-wheat flour tortillas. Meats and other proteins Skinless chicken or turkey. Ground chicken or turkey. Pork with fat trimmed off. Fish and seafood. Egg whites. Dried beans, peas, or lentils. Unsalted nuts, nut butters, and seeds. Unsalted canned beans. Lean cuts of beef with fat trimmed off. Low- sodium, lean precooked or cured meat, such as sausages or meat loaves. Dairy Low-fat (1%) or fat-free (skim) milk. Reduced-fat, low-fat, or fat-free cheeses. Nonfat, low-sodium ricotta or cottage cheese. Low-fat or nonfat yogurt. Low-fat, low-sodium cheese. Fats and oils Soft margarine without trans fats. Vegetable oil. Reduced-fat, low-fat, or light mayonnaise and salad dressings (reduced-sodium). Canola, safflower, olive, avocado, soybean, and sunflower oils. Avocado. Seasonings and condiments Herbs. Spices. Seasoning mixes without salt. Other foods Unsalted popcorn and pretzels. Fat-free sweets. The items listed above may not be all the foods and drinks you can have. Talk to a dietitian to learn more. What foods should I avoid? Fruits Canned fruit in a light or heavy syrup. Fried fruit. Fruit in cream or butter sauce. Vegetables Creamed or fried vegetables. Vegetables in a cheese sauce. Regular canned vegetables that are not marked as low-sodium or reduced-sodium. Regular canned tomato sauce and paste that are not marked as low-sodium or reduced-sodium. Regular tomato and vegetable juices that are not marked as low-sodium or reduced-sodium. Pickles. Olives. Grains Baked goods made with fat, such as croissants, muffins, or some breads. Dry pasta or rice meal packs. Meats and other proteins Fatty cuts of meat. Ribs. Fried meat. Mcdonnell. Bologna, salami, and other precooked or cured meats, such as sausages or meat loaves, that are not lean and low in sodium. Fat from the back of a pig (fatback). Bratwurst. Salted nuts and seeds. Canned beans with added salt. Canned or smoked fish. Whole eggs or egg yolks. Chicken or turkey with skin. Dairy Whole or 2% milk, cream, and [id number]. Whole or full-fat cream cheese. Whole-fat or sweetened yogurt. Full-fat cheese. Nondairy creamers. Whipped toppings. Processed cheese and cheese spreads. Fats and oils Butter. Stick margarine. Lard. Shortening. Ghee. Mcdonnell fat. Tropical oils, such as coconut, palm kernel, or palm oil. Seasonings and condiments Onion salt, garlic salt, seasoned salt, table salt, and sea salt. Worcestershire sauce. Tartar sauce. Barbecue sauce. Teriyaki sauce. Soy sauce, including reduced-sodium soy sauce. Steak sauce. Canned and packaged gravies. Fish sauce. Oyster sauce. Cocktail sauce. Store-bought horseradish. Ketchup. Mustard. Meat flavorings and tenderizers. Bouillon cubes. Hot sauces. Pre-made or packaged marinades. Pre-made or packaged taco seasonings. Relishes. Regular salad dressings. Other foods Salted popcorn and pretzels. The items listed above may not be all the foods and drinks you should avoid. Talk to a dietitian to learn more. Where to find more information ??? National Heart, Lung, and Blood [place] (NHLBI): nhlbi.nih.gov ??? [place] [employer] (AHA): heart.org ??? Academy of Nutrition and Dietetics: eatright.org ??? National Kidney Foundation (NKF): kidney.org This information is not intended to replace advice given to you by your health care provider. Make sure you discuss any questions you have with your health care provider. Document Revised: 03/16/2023 Document Reviewed: 03/16/2023 [employer] Patient Education ??? 2023 [employer] Chronic Kidney Disease, Adult Chronic kidney disease (CKD) occurs when the kidneys are slowly and permanently damaged over a long period of time. The kidneys are a pair of organs that do many important jobs in the body, including: ??? Removing waste and extra fluid from the blood to make urine. ??? Making hormones that maintain the amount of fluid in tissues and blood vessels. ??? Maintaining the right amount of fluids and chemicals in the body. A small amount of kidney damage may not cause problems, but a large amount of damage may make it hard or impossible for the kidneys to work right. Steps must be taken to slow kidney damage or to stop it from getting worse. If steps are not taken, the kidneys may stop working permanently (end-stage renal disease, or ESRD). Most of the time, CKD does not go away, but it can often be controlled. People who have CKD are usually able to live full lives. What are the causes? The most common causes of this condition are diabetes and high blood pressure (hypertension). Other causes include: ??? Cardiovascular diseases. These affect the heart and blood vessels. ??? Kidney diseases. These include: ? Glomerulonephritis, or inflammation of the tiny filters in the kidneys. ? Interstitial nephritis. This is swelling of the small tubes of the kidneys and of the surrounding structures. ? Polycystic kidney disease, in which clusters of fluid-filled sacs form within the kidneys. ? Renal vascular disease. This includes disorders that affect the arteries and veins of the kidneys. ??? Diseases that affect the body's defense system (immune system). ??? A problem with urine flow. This may be caused by: ? Kidney stones. ? Cancer. ? An enlarged prostate, in males. ??? A kidney infection or urinary tract infection (UTI) that keeps coming back. ??? Vasculitis. This is swelling or inflammation of the blood vessels. What increases the risk? Your chances of having kidney disease increase with age. The following factors may make you more likely to develop this condition: ??? A family history of kidney disease or kidney failure. Kidney failure means the kidneys can no longer work right. ??? Certain genetic diseases. ??? Taking medicines often that are damaging to the kidneys. ??? Being around or being in contact with toxic substances. ??? Obesity. ??? A history of tobacco use. What are the signs or symptoms? Symptoms of this condition include: ??? Feeling very tired (lethargic) and having less energy. ??? Swelling, or edema, of the face, legs, ankles, or feet. ??? Nausea or vomiting, or loss of appetite. ??? Confusion or trouble concentrating. ??? Muscle twitches and cramps, especially in the legs. ??? Dry, itchy skin. ??? A metallic taste in the mouth. ??? Producing less urine, or producing more urine (especially at night). ??? Shortness of breath. ??? Trouble sleeping. CKD may also result in not having enough red blood cells or hemoglobin in the blood (anemia) or having weak bones (bone disease). Symptoms develop slowly and may not be obvious until the kidney damage becomes severe. It is possible to have kidney disease for years without having symptoms. How is this diagnosed? This condition may be diagnosed based on: ??? Blood tests. ??? Urine tests. ??? Imaging tests, such as an ultrasound or a CT scan. ??? A kidney biopsy. This involves removing a sample of kidney tissue to be looked at under a microscope. Results from these tests will help to determine how serious the CKD is. How is this treated? There is no cure for most cases of this condition, but treatment usually relieves symptoms and prevents or slows the worsening of the disease. Treatment may include: ??? Diet changes, which may require you to avoid alcohol and foods that are high in salt, potassium, phosphorous, and protein. ??? Medicines. These may: ? Lower blood pressure. ? Control blood sugar (glucose). ? Relieve anemia. ? Relieve swelling. ? Protect your bones. ? Improve the balance of salts and minerals in your blood (electrolytes). ??? Dialysis, which is a type of treatment that removes toxic waste from the body. It may be needed if you have kidney failure. ??? Managing any other conditions that are causing your CKD or making it worse. Follow these instructions at home: Medicines ??? Take [id number] and prescription medicines only as told by your health care provider. The amount of some medicines that you take may need to be changed. ??? Do not take any new medicines unless approved by your health care provider. Many medicines can make kidney damage worse. ??? Do not take any vitamin and mineral supplements unless approved by your health care provider. Many nutritional supplements can make kidney damage worse. Lifestyle ??? Do not use any products that contain nicotine or tobacco, such as cigarettes, e-cigarettes, and chewing tobacco. If you need help quitting, ask your health care provider. ??? If you drink alcohol: ? Limit how much you use to: ? 0???1 drink a day for women who are not . ? 0???2 drinks a day for men. ? Know how much alcohol is in your drink. In the [place] one drink equals one 12 oz bottle of beer (355 mL), one 5 oz glass of wine (148 mL), or one 1??? oz glass of hard liquor (44 mL). ??? Maintain a healthy weight. If you need help, ask your health care provider. General instructions ??? Follow instructions from your health care provider about eating or drinking restrictions, including any prescribed diet. ??? Track your blood pressure at home. Report changes in your blood pressure as told. ??? If you are being treated for diabetes, track your blood glucose levels as told. ??? Start or continue an exercise plan. Exercise at least 30 minutes a day, 5 days a week. ??? Keep your immunizations up to date as told. ??? Keep all follow-up visits. This is important. Where to find more information ??? [place] [employer]: www.aakp.org ??? National Kidney Foundation: www.kidney.org ??? [place] [employer]: www.akfinc.org ??? Life Options: www.lifeoptions.org ??? Kidney School: www.kidneyschool.org Contact a health care provider if: ??? Your symptoms get worse. ??? You develop new symptoms. Get help right away if: ??? You develop symptoms of ESRD. These include: ? Headaches. ? Numbness in your hands or feet. ? Easy bruising. ? Frequent hiccups. ? Chest pain. ? Shortness of breath. ? Lack of menstrual periods, in women. ??? You have a fever. ??? You are producing less urine than usual. ??? You have pain or bleeding when you urinate or when you have a bowel movement. These symptoms may represent a serious problem that is an emergency. Do not wait to see if the symptoms will go away. Get medical help right away. Call your local emergency services (911 in the [place] Do not drive yourself to the hospital. Summary ??? Chronic kidney disease (CKD) occurs when the kidneys become damaged slowly over a long period of time. ??? The most common causes of this condition are diabetes and high blood pressure (hypertension). ??? There is no cure for most cases of CKD, but treatment usually relieves symptoms and prevents or slows the worsening of the disease. Treatment may include a combination of lifestyle changes, medicines, and dialysis. This information is not intended to replace advice given to you by your health care provider. Make sure you discuss any questions you have with your health care provider. Document Revised: 06/03/2020 Document Reviewed: 06/03/2020 [employer] Patient Education ??? 2023 [employer]. BMI for Adults Body mass index (BMI) is a number found using a person's weight and height. BMI can help tell how much of a person's weight is made up of fat. BMI does not measure body fat directly. It is used instead of tests that directly measure body fat, which can be difficult and expensive. What are BMI measurements used for? BMI is useful to: ??? Find out if your weight puts you at higher risk for medical problems. ??? Help recommend changes, such as in diet and exercise. This can help you reach a healthy weight. BMI screening can be done again to see if these changes are working. How is BMI calculated? Your height and weight are measured. The BMI is found from those numbers. This can be done with [place] or metric measurements. Note that charts and online BMI calculators are available to help you find your BMI quickly and easily without doing these calculations. To calculate your BMI in [place] measurements: 1. Measure your weight in pounds (lb). 2. Multiply the number of pounds by 703. ??? So, for an adult who weighs 150 lb, multiply that number by 703: 150 x 703, which equals 105,450. 3. Measure your height in inches. Then multiply that number by itself to get a measurement called inches squared. ??? So, for an adult who is 70 inches tall, the inches squared measurement is 70 inches x 70 inches, which equals 4,900 inches squared. 4. Divide the total from step 2 (number of lb x 703) by the total from step 3 (inches squared): 105,450 ??? 4,900 = 21.5. This is your BMI. To calculate your BMI in metric measurements: 1. Measure your weight in kilograms (kg). ??? For this example, the weight is 70 kg. 2. Measure your height in meters (m). Then multiply that number by itself to get a measurement called meters squared. ??? So, for an adult who is 1.75 m tall, the meters squared measurement is 1.75 m x 1.75 m, which equals 3.1 meters squared. 3. Divide the number of kilograms (your weight) by the meters squared number. In this example: 70 ??? 3.1 = 22.6. This is your BMI. What do the results mean? BMI charts are used to see if you are underweight, normal weight, overweight, or obese. The following guidelines will be used: ??? Underweight: BMI less than 18.5. ??? Normal weight: BMI between 18.5 and 24.9. ??? Overweight: BMI between 25 and 29.9. ??? Obese: BMI of 30 or above. BMI is a tool and cannot diagnose a condition. Talk with your health care provider about what your BMI means for you. Keep these notes in mind: ??? Weight includes fat and muscle. Someone with a muscular build, such as an athlete, may have a BMI that is higher than 24.9. In cases like these, BMI is not a correct measure of body fat. ??? If you have a BMI of 25 or higher, your provider may need to do more testing to find out if excess body fat is the cause. ??? BMI is measured the same way for males and females. Females usually have more body fat than males of the same height and weight. Where to find more information For more information about BMI, including tools to quickly find your BMI, go to: ??? Centers for Disease Control and Prevention: cdc.gov ??? [place] [employer]: heart.org ??? National Heart, Lung, and Blood [place]: nhlbi.nih.gov This information is not intended to replace advice given to you by your health care provider. Make sure you discuss any questions you have with your health care provider. Document Revised: 11/17/2022 Document Reviewed: 11/10/2022 Elsevier Patient Education ??? 2023 [employer] FAMILY MEDICINE OFFICE/CLINI C NOTE Observed: 01/29/2024 9:24 AM Status: F Source: [facility] Family Medicine Office/Clini c Note Chief Complaint Subsequent AWV History of Present Illness I was in the office and available for consultation and to provide direct supervision at the time of this visit. I have provided supervision of the care team and have reviewed this chart and office note and agree with the plan of care. Review of Systems PHQ Score Initial Depression Screen Score: 1 SCORE Physical Exam Vitals & Measurements HR: 85(Peripheral) RR: 16 BP: 120/80 SpO2: 89% HT: 168 cm HT: 66 in WT: 82 kg WT: 180.779 lb BMI: 29.05 Assessment/Plan 1. Encounter for annual wellness visit (AWV) in Medicare patient (Z00.00: Encounter for general adult medical examination without abnormal findings) The patient was given a customized and personalized print out of all the current AHRQ USPSTF???s recommendations for preventative services and all current [...] of clutter to prevent tripping and/or falling. [place] Advance Directives reviewed, on file in chart. No changes are needed. Patient denies any problems with ADL???s and Instrumental ADL???s. Cognitive screening completed with memory and clock face drawing. No decline noted. Immunization Record reviewed with the patient. COVID vaccines have been administered, immunization record is up to date. Allergies and medications reviewed and up to date. Patient denies concerns with taking medication as prescribed, reviewed OTC medications with patient with medication list up to date. Blood tests were reviewed: Discussed what tests need to be updated. Colonoscopy- aged out, refused DEXA scan and Mammogram- aged out, refused Reviewed concerns with bladder control over past 6 months with no concerns. Reviewed pain symptoms with patient: Reviewed all outside providers that patient follows. Last visit summary notes available in chart and/or have been requested. Follow up scheduled 03/05/2024 AWV has been scheduled 02/03/2025 Medicare provides yearly screening for alcohol and [...] AUDIT risk assessment screening completed, risk score (2) with patient denying concerns with use. 2. Chronic respiratory failure with hypoxia (J96.11: Chronic respiratory failure with hypoxia) Patient using inhalers daily as directed with effectiveness. PRN nebulizer used with relief with SOB after exertion. Encouraged to remain active, reviewed Pulmonary nutritional recommendations handout during visit. Will continue to monitor for changes and/or concerns with office visits. Pulse ox today was 3. Emphysema/COPD (J43.1: Panlobular emphysema) See # 2. 4. GERD (gastroesophageal reflux disease) (K21.9: Gastro-esophageal reflux disease without esophagitis) Patient taking Omeprazole as directed with symptoms managed. Reviewed nutrition therapy with recommended foods to help control your symptoms. 5. Generalized osteoarthritis (M15.9: Polyosteoarthritis, unspecified) Pain level today is a 0/10. Pt taking Gabapentin and Cyclobenzaprine daily and Tylenol-Oxycodone PRN as directed. P to follow up with PCP as directed. 6. HTN (hypertension) (I10: Essential (primary) hypertension) Patient is taking Amlodipine and Maxide daily as directed. Does monitor BP pressure at home. Reviewed with pt BP goal to be <140/90. Reviewed different factors that can alter blood pressure readings. Education handout provided with s/s to monitor for and report to provider. Patient is encouraged to increase portions of fruit, vegetables, fiber and increase exercise as much as tolerable. Reviewed importance with monitoring foods high in salt content and encouraged to limit intake, if unsure encouraged to discuss with their PCP. Encouraged to eat more chicken, fish and lean white meats and limits red meats in diet. Discussed importance with keeping BP under good control to reduce CVA risk factors. Will continue to f/u with PCP during office visits and as needed. 7. Major depressive disorder, recurrent, mild (F33.0: Major depressive disorder, recurrent, mild) Pt is not currently taking any medications for Depression. Follows up with PCP with medication management and symptom control. PHQ-9 risk assessment completed with negative findings. Total risk score is 5. Patient denies any suicidal ideations at this time. Reviewed additional signs/symptoms to monitor for and report to provider. 8. Stage 3a chronic kidney disease (CKD) (N18.31: Chronic kidney disease, stage 3a) Reviewed health kidney nutritional handout with importance of preventing strain on the kidneys. Monitor sodium intake daily, educational handout reviewed and provided to assist the patient with a better understanding which types of food, including frozen foods, canned food and fast foods. Work towards a dietary intake with low potassium foods and limit protein intake. Reminded importance to avoid NSAID use and monitor for swelling in the body. Continue to monitor BP with importance of keeping under control with repeated blood work to be ordered as directed with PCP. Follows up with Nephrology as directed. 9. Wears hearing aid in both ears (Z97.4: Presence of external hearing-aid) No updates needed. 10. Adult BMI 29.0-29.9 kg/sq m (Z68.29: Body mass index [BMI] 29.0-29.9, adult) The standard range for ages 18 and older is >=18.5 and < 25 kg/m2. Your BMI of 29.05 today was above this range, this falls in the overweight category and there are medical benefits to [...] in order to reach a healthy weight. 11. Overweight (E66.3: Overweight) A combination of diet and exercise can help you lose the weight. Discussed weight loss benefits to dietary management and overall health with increased cardiovascular risks associated with waist measurement >35 inches for female and 40 inches for male patients. Reminded pt importance to work on lowering current body weight with healthy dietary intake choices with understanding of portion control. Reviewed goals and patient's readiness with needing to make a healthier lifestyle change. Will work on increasing daily activity and prevent further weight gain. Will follow up with PCP during office visits for progress. 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 Incontinence without sensory awareness Insomnia Irritable bowel syndrome with predominant constipation Leg pain, left Lumbar radiculopathy, right Major depressive disorder, recurrent, mild Mild cognitive impairment Mixed incontinence OAB (overactive bladder) Obesity due to excess calories Other urethral stricture, female Pain of right sacroiliac joint Patient has healthcare proxy and living will Peripheral neuropathy RLS (restless legs syndrome) S/P knee replacement Severe obstructive sleep apnea Shoulder pain Somatic dysfunction of abdominal region Somatic dysfunction of cervical region Somatic dysfunction of lower extremities Somatic dysfunction of lumbar region Somatic dysfunction of rib cage region Somatic dysfunction of sacral spine Somatic dysfunction of thoracic region Spasm of lumbar paraspinous muscle Stage 3a chronic kidney disease (CKD) Stooped posture Thoracic aorta atherosclerosis Tremor UTI (urinary tract infection) Wears hearing aid in both ears Historical Abdominal pain, generalized Abnormal urinalysis Body mass index (BMI) of 31.0-31.9 in adult Bronchitis with bronchospasm Cervical radiculopathy Chest pain Dizziness WINTERS (dyspnea on exertion) Exposure to second hand smoke Frequent urination Hernia of abdominal wall History of UTI Leg edema Pain in back 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 Rib pain on right side Right hip pain Screening mammogram, encounter for Urinary urgency Procedure/Surgical History Injection of nerve root of lumbar spine using fluoroscopic guidance (12/21/2023), Injection of nerve root of sacral spine [...] Corns and callus, mole removal, Tubal ligation. Medications acetaminophen-oxycodone 325 mg-5 mg Tab, 1 tab(s), Oral, BID amLODIPine 5 mg Tab, 5 mg= 1 tab(s), Oral, Daily, 4 refills cyclobenzaprine 5 mg Tab, 5 mg= 1 tab(s), Oral, Bedtime, 12 refills diclofenac topical 1% gel, 1 elva, Topical, QID, PRN Dulcolax Tab-EC, 2-3 tabs, Oral, Daily gabapentin 300 mg Cap, 300 mg= 1 cap(s), Oral, TID, 11 refills Handicap Placard, See Instructions Maxzide-25 oral tablet, 1 tab(s), Oral, Daily, 4 refills Misc DME Prescription, See Instructions nebulizer supplies, See Instructions, 11 refills omeprazole 20 mg Cap-DR, 20 mg= 1 cap(s), Oral, Daily, 4 refills triamcinolone Top 0.1% Crm 15 gram, 1 elva, Topical, BID, 11 refills Tylenol, 500 mg, Oral, q6hr Allergies Chocolate (Anaphylaxis) Adhesive Bandage (Itching, Rash) [...] Previous treatment: None. Household tobacco concerns: No., 01/09/2024 Family History Alcoholism: Father. Metastatic cancer: Mother. Parkinson disease: Father. Parkinson's disease: Father. Primary malignant neoplasm of colon: Mother. Immunizations Vaccine Date Status Comments diphtheria/pertussis, acel/tetanus adult 01/18/2024 Recorded influenza virus vaccine, inactivated 11/24/2023 Given influenza virus vaccine, inactivated - Not Given Vaccine Storage zoster vaccine, inactivated 05/22/2023 Recorded zoster vaccine live 02/06/2023 Recorded Zoster Recombinant per [facility] zoster vaccine, inactivated 02/06/2023 Recorded influenza virus vaccine, inactivated 01/09/2023 Given Early/Late Reason: System Down SARS-CoV-2 (COVID-19) [id number] 01/18/2022 Given influenza virus vaccine, inactivated 01/18/2022 Given influenza virus vaccine, inactivated - Not Given Postpone due to refusal SARS-CoV-2 (COVID-19) mRNA [id number]-162b2 vax 01/13/2021 Given influenza virus vaccine, inactivated 12/09/2020 Given SARS-CoV-2 (COVID-19) mRNA-1273 vaccine 05/18/2020 Recorded SARS-CoV-2 (COVID-19) mRNA-1273 vaccine 05/18/2020 Recorded Patrice & Patrice vaccine administered with [facility] dept ImpactSI[employer] scanned with date influenza virus vaccine, inactivated 12/27/2019 Given influenza virus vaccine, inactivated 12/18/2018 Given influenza virus vaccine, inactivated 01/09/2018 Recorded pneumococcal 13-valent vaccine 03/29/2017 Recorded influenza virus vaccine, inactivated 12/08/2016 Recorded influenza virus vaccine, inactivated 12/17/2015 Recorded pneumococcal 23-valent vaccine 01/21/2014 Recorded pneumococcal 23-valent vaccine 12/16/2013 Recorded pneumococcal 23-valent vaccine 01/04/2008 Recorded Result Comment: Electronical ly Signed By: Nikhil Sewell DO\.br\Date and Time Signed: 01/29/24 13:02 EST\.br\Electronically Co-Signed By: Juan Meyer LPN\.br\Date and Time Co-Signed: 01/29/24 09:24 EST PATIENT EDUCATION Observed: 01/29/2024 9:13 AM Status: C Source: [facility] Patient Education Cardiovascular Hypertension, Adult High blood pressure (hypertension) is when the force of blood pumping through the arteries is too strong. The arteries are the blood vessels that carry blood from the heart throughout the body. Hypertension forces the heart to work harder to pump blood and may cause arteries to become narrow or stiff. Untreated or uncontrolled hypertension can lead to a heart attack, heart failure, a stroke, kidney disease, and other problems. A blood pressure reading consists of a higher number over a lower number. Ideally, your blood pressure should be below 120/80. The first ( top ) number is called the systolic pressure. It is a measure of the pressure in your arteries as your heart beats. The second ( bottom ) number is called the diastolic pressure. It is a measure of the pressure in your arteries as the heart relaxes. What are the causes? The exact cause of this condition is not known. There are some conditions that result in high blood pressure. What increases the risk? Certain factors may make you more likely to develop high blood pressure. Some of these risk factors are under your control, including: ??? Smoking. ??? Not getting enough exercise or physical activity. ??? Being overweight. ??? Having too much fat, sugar, calories, or salt (sodium) in your diet. ??? Drinking too much alcohol. Other risk factors include: ??? Having a personal history of heart disease, diabetes, high cholesterol, or kidney disease. ??? Stress. ??? Having a family history of high blood pressure and high cholesterol. ??? Having obstructive sleep apnea. ??? Age. The risk increases with age. What are the signs or symptoms? High blood pressure may not cause symptoms. Very high blood pressure (hypertensive crisis) may cause: ??? Headache. ??? Fast or irregular heartbeats (palpitations). ??? Shortness of breath. ??? Nosebleed. ??? Nausea and vomiting. ??? Vision changes. ??? Severe chest pain, dizziness, and seizures. How is this diagnosed? This condition is diagnosed by measuring your blood pressure while you are seated, with your arm resting on a flat surface, your legs uncrossed, and your feet flat on the floor. The cuff of the blood pressure monitor will be placed directly against the skin of your upper arm at the level of your heart. Blood pressure should be measured at least twice using the same arm. Certain conditions can cause a difference in blood pressure between your right and left arms. If you have a high blood pressure reading during one visit or you have normal blood pressure with other risk factors, you may be asked to: ??? Return on a different day to have your blood pressure checked again. ??? Monitor your blood pressure at home for 1 week or longer. If you are diagnosed with hypertension, you may have other blood or imaging tests to help your health care provider understand your overall risk for other conditions. How is this treated? This condition is treated by making healthy lifestyle changes, such as eating healthy foods, exercising more, and reducing your alcohol intake. You may be referred for counseling on a healthy diet and physical activity. Your health care provider may prescribe medicine if lifestyle changes are not enough to get your blood pressure under control and if: ??? Your systolic blood pressure is above 130. ??? Your diastolic blood pressure is above 80. Your personal target blood pressure may vary depending on your medical conditions, your age, and other factors. Follow these instructions at home: Eating and drinking ??? Eat a diet that is high in fiber and potassium, and low in sodium, added sugar, and fat. An example of this eating plan is called the DASH diet. DASH stands for Dietary Approaches to Stop Hypertension. To eat this way: ? Eat plenty of fresh fruits and vegetables. Try to fill one half of your plate at each meal with fruits and vegetables. ? Eat whole grains, such as whole-wheat pasta, brown rice, or whole-grain bread. Fill about one fourth of your plate with whole grains. ? Eat or drink low-fat dairy products, such as skim milk or low-fat yogurt. ? Avoid fatty cuts of meat, processed or cured meats, and poultry with skin. Fill about one fourth of your plate with lean proteins, such as fish, chicken without skin, beans, eggs, or tofu. ? Avoid pre-made and processed foods. These tend to be higher in sodium, added sugar, and fat. ??? Reduce your daily sodium intake. Many people with hypertension should eat less than 1,500 mg of sodium a day. ??? Do not drink alcohol if: ? Your health care provider tells you not to drink. ? You are , may be , or are planning to become . ??? If you drink alcohol: ? Limit how much you have to: ? 0?1 drink a day for women. ? 0?2 drinks a day for men. ? Know how much alcohol is in your drink. In the [place] one drink equals one 12 oz bottle of beer (355 mL), one 5 oz glass of wine (148 mL), or one 1? oz glass of hard liquor (44 mL). Lifestyle ??? Work with your health care provider to maintain a healthy body weight or to lose weight. Ask what an ideal weight is for you. ??? Get at least 30 minutes of exercise that causes your heart to beat faster (aerobic exercise) most days of the week. Activities may include walking, swimming, or biking. ??? Include exercise to strengthen your muscles (resistance exercise), such as Pilates or lifting weights, as part of your weekly exercise routine. Try to do these types of exercises for 30 minutes at least 3 days a week. ??? Do not use any products that contain nicotine or tobacco. These products include cigarettes, chewing tobacco, and vaping devices, such as e-cigarettes. If you need help quitting, ask your health care provider. ??? Monitor your blood pressure at home as told by your health care provider. ??? Keep all follow-up visits. This is important. Medicines ??? Take cozy-nnq-nrfkowl and prescription medicines only as told by your health care provider. Follow directions carefully. Blood pressure medicines must be taken as prescribed. ??? Do not skip doses of blood pressure medicine. Doing this puts you at risk for problems and can make the medicine less effective. ??? Ask your health care provider about side effects or reactions to medicines that you should watch for. Contact a health care provider if you: ??? Think you are having a reaction to a medicine you are taking. ??? Have headaches that keep coming back (recurring). ??? Feel dizzy. ??? Have swelling in your ankles. ??? Have trouble with your vision. Get help right away if you: ??? Develop a severe headache or confusion. ??? Have unusual weakness or numbness. ??? Feel faint. ??? Have severe pain in your chest or abdomen. ??? Vomit repeatedly. ??? Have trouble breathing. These symptoms may be an emergency. Get help right away. Call 911. ??? Do not wait to see if the symptoms will go away. ??? Do not drive yourself to the hospital. Summary ??? Hypertension is when the force of blood pumping through your arteries is too strong. If this condition is not controlled, it may put you at risk for serious complications. ??? Your personal target blood pressure may vary depending on your medical conditions, your age, and other factors. For most people, a normal blood pressure is less than 120/80. ??? Hypertension is treated with lifestyle changes, medicines, or a combination of both. Lifestyle changes include losing weight, eating a healthy, low-sodium diet, exercising more, and limiting alcohol. This information is not intended to replace advice given to you by your health care provider. Make sure you discuss any questions you have with your health care provider. Document Revised: 01/04/2022 Document Reviewed: 01/04/2022 [employer] Patient Education ? 2023 [employer]Endocrinology Preventing Health Risks of Being Overweight Maintaining a healthy body weight is an important part of your overall health. Your healthy body weight depends on your age, gender, and height. Being overweight puts you at risk for many health problems. You can make changes to your diet and lifestyle to prevent these risks. Consider working with a health care provider or a dietitian to make these changes. How can being overweight affect me? Being overweight can affect you for your entire life. You may develop joint or bone problems that make it painful or difficult for you to play sports or do activities you enjoy. Being overweight also puts stress on your heart and lungs and can lead to medical problems such as: ??? Heart disease. ??? Diabetes. ??? Some types of cancer. ??? Stroke. Eating healthy and being active helps you lose weight and prevents health problems caused by being overweight. Making these changes can also help you manage stress, feel better mentally, and connect with friends and family. What can increase my risk? In addition to certain diet and lifestyle choices, some other factors that may make you more likely to be overweight include: ??? Having a family history of obesity. ??? Living in an area with limited access to: ? [place], recreation centers, or sidewalks. ? Healthy food choices, such as grocery stores and farmers' markets. What actions can I take to prevent health risks of being overweight? Nutrition ??? Eat only as much as your body needs. In most cases, this is about 2,000 calories a day, but the amount varies depending on your height, gender, and activity level. Ask your health care provider how many calories you should have each day. Eating more than your body needs on a regular basis can cause you to become overweight or obese. ??? Eat slowly, and stop eating when you feel full. ??? Choose healthy foods, including: ? Fruits and vegetables. ? Lean meats. ? Low-fat dairy products. ? High-fiber foods, such as whole grains and beans. ? Healthy snacks like vegetable sticks, a piece of fruit, or a small amount of yogurt or cheese. ??? Avoid foods and drinks that are high in sugar, salt (sodium), saturated fat, or trans fat. This includes: ? Many desserts such as candy, cookies, and ice cream. ? Soda. ? Fried foods. ? Processed, precooked, or cured meat, such as hot dogs, sausages, or meat loaves. ? Prepackaged snack foods. Lifestyle ??? Exercise for at least 150 minutes a week to prevent weight gain, or as often as recommended by your health care provider. Do moderate-intensity exercise, such as brisk walking. ? Spread it out by exercising for 30 minutes 5 days a week, or in short 10- minute bursts several times a day. ??? Find other ways to stay active and burn calories, such as yard work or a hobby that involves physical activity. ??? Get at least 8 hours of sleep each night. When you are well rested, you are more likely to be active and make healthy choices during the day. To sleep better: ? Try to go to bed and wake up at about the same time every day. ? Keep your bedroom dark, quiet, and cool. ? Make sure that your bed is comfortable. ? Avoid stimulating activities, such as watching television or exercising, for at least an hour before bedtime. Where to find support You can get support for preventing health risks of being overweight from: ??? Your health care provider or a dietitian. They can provide guidance about healthy eating and healthy lifestyle choices. ??? Weight loss support groups, online or in-person. Where to find more information ??? MyPlate: www.choosemyplate.gov ? This an online tool that provides personalized recommendations about foods to eat each day. ??? The Centers for Disease Control and Prevention: www.cdc.gov/healthyweight ? This resource gives tips for managing weight and having an active lifestyle. Summary ??? Eating healthy and being active helps you lose weight and prevents health problems caused by being overweight. ??? Being overweight puts stress on your heart and lungs and can lead to medical problems such as diabetes, heart disease, some types of cancer, and stroke. This information is not intended to replace advice given to you by your health care provider. Make sure you discuss any questions you have with your health care provider. Document Revised: 09/24/2021 Document Reviewed: 09/24/2021 [employer] Patient Education ? 2023 [employer].Nephrology Chronic Kidney Disease, Adult Chronic kidney disease (CKD) occurs when the kidneys are slowly and permanently damaged over a long period of time. The kidneys are a pair of organs that do many important jobs in the body, including: ??? Removing waste and extra fluid from the blood to make urine. ??? Making hormones that maintain the amount of fluid in tissues and blood vessels. ??? Maintaining the right amount of fluids and chemicals in the body. A small amount of kidney damage may not cause problems, but a large amount of damage may make it hard or impossible for the kidneys to work right. Steps must be taken to slow kidney damage or to stop it from getting worse. If steps are not taken, the kidneys may stop working permanently (end-stage renal disease, or ESRD). Most of the time, CKD does not go away, but it can often be controlled. People who have CKD are usually able to live full lives. What are the causes? The most common causes of this condition are diabetes and high blood pressure (hypertension). Other causes include: ??? Cardiovascular diseases. These affect the heart and blood vessels. ??? Kidney diseases. These include: ? Glomerulonephritis, or inflammation of the tiny filters in the kidneys. ? Interstitial nephritis. This is swelling of the small tubes of the kidneys and of the surrounding structures. ? Polycystic kidney disease, in which clusters of fluid-filled sacs form within the kidneys. ? Renal vascular disease. This includes disorders that affect the arteries and veins of the kidneys. ??? Diseases that affect the body's defense system (immune system). ??? A problem with urine flow. This may be caused by: ? Kidney stones. ? Cancer. ? An enlarged prostate, in males. ??? A kidney infection or urinary tract infection (UTI) that keeps coming back. ??? Vasculitis. This is swelling or inflammation of the blood vessels. What increases the risk? Your chances of having kidney disease increase with age. The following factors may make you more likely to develop this condition: ??? A family history of kidney disease or kidney failure. Kidney failure means the kidneys can no longer work right. ??? Certain genetic diseases. ??? Taking medicines often that are damaging to the kidneys. ??? Being around or being in contact with toxic substances. ??? Obesity. ??? A history of tobacco use. What are the signs or symptoms? Symptoms of this condition include: ??? Feeling very tired (lethargic) and having less energy. ??? Swelling, or edema, of the face, legs, ankles, or feet. ??? Nausea or vomiting, or loss of appetite. ??? Confusion or trouble concentrating. ??? Muscle twitches and cramps, especially in the legs. ??? Dry, itchy skin. ??? A metallic taste in the mouth. ??? Producing less urine, or producing more urine (especially at night). ??? Shortness of breath. ??? Trouble sleeping. CKD may also result in not having enough red blood cells or hemoglobin in the blood (anemia) or having weak bones (bone disease). Symptoms develop slowly and may not be obvious until the kidney damage becomes severe. It is possible to have kidney disease for years without having symptoms. How is this diagnosed? This condition may be diagnosed based on: ??? Blood tests. ??? Urine tests. ??? Imaging tests, such as an ultrasound or a CT scan. ??? A kidney biopsy. This involves removing a sample of kidney tissue to be looked at under a microscope. Results from these tests will help to determine how serious the CKD is. How is this treated? There is no cure for most cases of this condition, but treatment usually relieves symptoms and prevents or slows the worsening of the disease. Treatment may include: ??? Diet changes, which may require you to avoid alcohol and foods that are high in salt, potassium, phosphorous, and protein. ??? Medicines. These may: ? Lower blood pressure. ? Control blood sugar (glucose). ? Relieve anemia. ? Relieve swelling. ? Protect your bones. ? Improve the balance of salts and minerals in your blood (electrolytes). ??? Dialysis, which is a type of treatment that removes toxic waste from the body. It may be needed if you have kidney failure. ??? Managing any other conditions that are causing your CKD or making it worse. Follow these instructions at home: Medicines ??? Take [id number] and prescription medicines only as told by your health care provider. The amount of some medicines that you take may need to be changed. ??? Do not take any new medicines unless approved by your health care provider. Many medicines can make kidney damage worse. ??? Do not take any vitamin and mineral supplements unless approved by your health care provider. Many nutritional supplements can make kidney damage worse. Lifestyle ??? Do not use any products that contain nicotine or tobacco, such as cigarettes, e-cigarettes, and chewing tobacco. If you need help quitting, ask your health care provider. ??? If you drink alcohol: ? Limit how much you use to: ? 0?1 drink a day for women who are not . ? 0?2 drinks a day for men. ? Know how much alcohol is in your drink. In the [place] one drink equals one 12 oz bottle of beer (355 mL), one 5 oz glass of wine (148 mL), or one 1? oz glass of hard liquor (44 mL). ??? Maintain a healthy weight. If you need help, ask your health care provider. General instructions ??? Follow instructions from your health care provider about eating or drinking restrictions, including any prescribed diet. ??? Track your blood pressure at home. Report changes in your blood pressure as told. ??? If you are being treated for diabetes, track your blood glucose levels as told. ??? Start or continue an exercise plan. Exercise at least 30 minutes a day, 5 days a week. ??? Keep your immunizations up to date as told. ??? Keep all follow-up visits. This is important. Where to find more information ??? [place] [employer]: www.aakp.org ??? National Kidney Foundation: www.kidney.org ??? [place] [employer]: www.akfinc.org ??? Life Options: www.lifeoptions.org ??? Kidney School: www.kidneyschool.org Contact a health care provider if: ??? Your symptoms get worse. ??? You develop new symptoms. Get help right away if: ??? You develop symptoms of ESRD. These include: ? Headaches. ? Numbness in your hands or feet. ? Easy bruising. ? Frequent hiccups. ? Chest pain. ? Shortness of breath. ? Lack of menstrual periods, in women. ??? You have a fever. ??? You are producing less urine than usual. ??? You have pain or bleeding when you urinate or when you have a bowel movement. These symptoms may represent a serious problem that is an emergency. Do not wait to see if the symptoms will go away. Get medical help right away. Call your local emergency services (911 in the [place] Do not drive yourself to the hospital. Summary ??? Chronic kidney disease (CKD) occurs when the kidneys become damaged slowly over a long period of time. ??? The most common causes of this condition are diabetes and high blood pressure (hypertension). ??? There is no cure for most cases of CKD, but treatment usually relieves symptoms and prevents or slows the worsening of the disease. Treatment may include a combination of lifestyle changes, medicines, and dialysis. This information is not intended to replace advice given to you by your health care provider. Make sure you discuss any questions you have with your health care provider. Document Revised: 06/03/2020 Document Reviewed: 06/03/2020 [employer] Patient Education ? 2023 [employer]Nutrition Eating Plan for Chronic Obstructive Pulmonary Disease Chronic obstructive pulmonary disease (COPD) causes symptoms such as shortness of breath, coughing, and chest discomfort. These symptoms can make it difficult to eat enough to maintain a healthy weight. Generally, people with COPD should eat a diet that is high in calories, protein, and other nutrients to maintain body weight and to keep the lungs as healthy as possible. Depending on the medicines you take and other health conditions you may have, your health care provider may give you additional recommendations on what to eat or avoid. Talk with your health care provider about your goals for body weight, and work with a dietitian to develop an eating plan that is right for you. What are tips for following this plan? Reading food labels ??? Avoid foods with more than 300 milligrams (mg) of salt (sodium) per serving. ??? Choose foods that contain at least 4 grams (g) of fiber per serving. Try to eat 20?30 g of fiber each day. ??? Choose foods that are high in calories and protein, such as nuts, beans, yogurt, and cheese. Shopping ??? Do not buy foods labeled as diet, low-calorie, or low-fat. ??? If you are able to eat dairy products: ? Avoid low-fat or skim milk. ? Buy dairy products that have at least 2% fat. ??? Buy nutritional supplement drinks. ??? Buy grains and prepared foods labeled as enriched or fortified. ??? Consider buying low-sodium, pre-made foods to conserve energy for eating. Cooking ??? Add dry milk or protein powder to smoothies. ??? Cook with healthy fats, such as olive oil, canola oil, sunflower oil, and grapeseed oil. ??? Add oil, butter, cream cheese, or nut butters to foods to increase fat and calories. ??? To make foods easier to chew and swallow: ? Cook vegetables, pasta, and rice until soft. ? Cut or grind meat into very small pieces. ? Dip breads in liquid. Meal planning ??? Eat when you feel hungry. ??? Eat 5?6 small meals throughout the day. ??? Drink 6?8 glasses of water each day. ??? Do not drink liquids with meals. Drink liquids at the end of the meal to avoid feeling full too quickly. ??? Eat a variety of fruits and vegetables every day. ??? Ask for assistance from family or friends with planning and preparing meals as needed. ??? Avoid foods that cause you to feel bloated, such as carbonated drinks, fried foods, beans, broccoli, cabbage, and apples. ??? For older adults, ask your local agency on aging whether you are eligible for meal assistance programs, such as Meals on Wheels. Lifestyle ??? Do not smoke. ??? Eat slowly. Take small bites and chew food well before swallowing. ??? Do not overeat. This may make it more difficult to breathe after eating. ??? Sit up while eating. ??? If needed, continue to use supplemental oxygen while eating. ??? Rest or relax for 30 minutes before and after eating. ??? Monitor your weight as told by your health care provider. ??? Exercise as told by your health care provider. What foods should I eat? Fruits All fresh, dried, canned, or frozen fruits that do not cause gas. Vegetables All fresh, canned (no salt added), or frozen vegetables that do not cause gas. Grains Whole-grain bread. Enriched whole-grain pasta. Fortified whole-grain cereals. Fortified rice. Quinoa. Meats and other proteins Lean meat. Poultry. Fish. Dried beans. Unsalted nuts. Tofu. Eggs. Nut butters. Dairy Whole or 2% milk. Cheese. Yogurt. Fats and oils Walker oil. Canola oil. Butter. Margarine. Beverages Water. Vegetable juice (no salt added). Decaffeinated coffee. Decaffeinated or herbal tea. Seasonings and condiments Fresh or dried herbs. Low-salt or salt-free seasonings. Low-sodium soy sauce. The items listed above may not be a complete list of foods and beverages you can eat. Contact a dietitian for more information. What foods should I avoid? Fruits Fruits that cause gas, such as apples or melon. Vegetables Vegetables that cause gas, such as broccoli, Exchange sprouts, cabbage, cauliflower, and onions. Canned vegetables with added salt. Meats and other proteins Fried meat. Salt-cured meat. Processed meat. Dairy Fat-free or low-fat milk, yogurt, or cheese. Processed cheese. Beverages Carbonated drinks. Caffeinated drinks, such as coffee, tea, and soft drinks. Juice. Alcohol. Vegetable juice with added salt. Seasonings and condiments Salt. Seasoning mixes with salt. Soy sauce. Pickles. Other foods Clear soup or broth. Fried foods. Prepared frozen meals. The items listed above may not be a complete list of foods and beverages you should avoid. Contact a dietitian for more information. Summary ??? COPD symptoms can make it difficult to eat enough to maintain a healthy weight. ??? A COPD eating plan can help you maintain your body weight and keep your lungs as healthy as possible. ??? Eat a diet that is high in calories, protein, and other nutrients. Read labels to make sure that you are getting the right nutrients. Cook foods to make them easier to chew and swallow. ??? Eat 5?6 small meals throughout the day, and avoid foods that cause gas or make you feel bloated. This information is not intended to replace advice given to you by your health care provider. Make sure you discuss any questions you have with your health care provider. Document Revised: 01/05/2021 Document Reviewed: 01/05/2021 [employer] Patient Education ? 2023 [employer].DASH Eating Plan DASH stands for Dietary Approaches to Stop Hypertension. The DASH eating plan is a healthy eating plan that has been shown to: ??? Lower high blood pressure (hypertension). ??? Reduce your risk for type 2 diabetes, heart disease, and stroke. ??? Help with weight loss. What are tips for following this plan? Reading food labels ??? Check food labels for the amount of salt (sodium) per serving. Choose foods with less than 5 percent of the Daily Value (DV) of sodium. In general, foods with less than 300 milligrams (mg) of sodium per serving fit into this eating plan. ??? To find whole grains, look for the word whole as the first word in the ingredient list. Shopping ??? Buy products labeled as low-sodium or no salt added. ??? Buy fresh foods. Avoid canned foods and pre-made or frozen meals. Cooking ??? Try not to add salt when you cook. Use salt-free seasonings or herbs instead of table salt or sea salt. Check with your health care provider or pharmacist before using salt substitutes. ??? Do not cornell foods. Cook foods in healthy ways, such as baking, boiling, grilling, roasting, or broiling. ??? Cook using oils that are good for your heart. These include olive, canola, avocado, soybean, and sunflower oil. Meal planning ??? Eat a balanced diet. This should include: ? 4 or more servings of fruits and 4 or more servings of vegetables each day. Try to fill half of your plate with fruits and vegetables. ? 6?8 servings of whole grains each day. ? 6 or less servings of lean meat, poultry, or fish each day. 1 oz is 1 serving. A 3 oz (85 g) serving of meat is about the same size as the palm of your hand. One egg is 1 oz (28 g). ? 2?3 servings of low-fat dairy each day. One serving is 1 cup (237 mL). ? 1 serving of nuts, seeds, or beans 5 times each week. ? 2?3 servings of heart-healthy fats. Healthy fats called omega-3 fatty acids are found in foods such as walnuts, flaxseeds, fortified milks, and eggs. These fats are also found in cold-water fish, such as sardines, salmon, and mackerel. ??? Limit how much you eat of: ? Canned or prepackaged foods. ? Food that is high in trans fat, such as fried foods. ? Food that is high in saturated fat, such as fatty meat. ? Desserts and other sweets, sugary drinks, and other foods with added sugar. ? Full-fat dairy products. ??? Do not salt foods before eating. ??? Do not eat more than 4 egg yolks a week. ??? Try to eat at least 2 vegetarian meals a week. ??? Eat more home-cooked food and less restaurant, buffet, and fast food. Lifestyle ??? When eating at a restaurant, ask if your food can be made with less salt or no salt. ??? If you drink alcohol: ? Limit how much you have to: ? 0?1 drink a day if you are female. ? 0?2 drinks a day if you are male. ? Know how much alcohol is in your drink. In the [place] one drink is one 12 oz bottle of beer (355 mL), one 5 oz glass of wine (148 mL), or one 1? oz glass of hard liquor (44 mL). General information ??? Avoid eating more than 2,300 mg of salt a day. If you have hypertension, you may need to reduce your sodium intake to 1,500 mg a day. ??? Work with your provider to stay at a healthy body weight or lose weight. Ask what the best weight range is for you. ??? On most days of the week, get at least 30 minutes of exercise that causes your heart to beat faster. This may include walking, swimming, or biking. ??? Work with your provider or dietitian to adjust your eating plan to meet your specific calorie needs. What foods should I eat? Fruits All fresh, dried, or frozen fruit. Canned fruits that are in their natural juice and do not have sugar added to them. Vegetables Fresh or frozen vegetables that are raw, steamed, roasted, or grilled. Low- sodium or reduced-sodium tomato and vegetable juice. Low-sodium or reduced-sodium tomato sauce and tomato paste. Low-sodium or reduced-sodium canned vegetables. Grains Whole-grain or whole-wheat bread. Whole-grain or whole-wheat pasta. Brown rice. Oatmeal. Quinoa. Bulgur. Whole-grain and low-sodium cereals. Haley bread. Low- fat, low-sodium crackers. Whole-wheat flour tortillas. Meats and other proteins Skinless chicken or turkey. Ground chicken or turkey. Pork with fat trimmed off. Fish and seafood. Egg whites. Dried beans, peas, or lentils. Unsalted nuts, nut butters, and seeds. Unsalted canned beans. Lean cuts of beef with fat trimmed off. Low- sodium, lean precooked or cured meat, such as sausages or meat loaves. Dairy Low-fat (1%) or fat-free (skim) milk. Reduced-fat, low-fat, or fat-free cheeses. Nonfat, low-sodium ricotta or cottage cheese. Low-fat or nonfat yogurt. Low-fat, low-sodium cheese. Fats and oils Soft margarine without trans fats. Vegetable oil. Reduced-fat, low-fat, or light mayonnaise and salad dressings (reduced-sodium). Canola, safflower, olive, avocado, soybean, and sunflower oils. Avocado. Seasonings and condiments Herbs. Spices. Seasoning mixes without salt. Other foods Unsalted popcorn and pretzels. Fat-free sweets. The items listed above may not be all the foods and drinks you can have. Talk to a dietitian to learn more. What foods should I avoid? Fruits Canned fruit in a light or heavy syrup. Fried fruit. Fruit in cream or butter sauce. Vegetables Creamed or fried vegetables. Vegetables in a cheese sauce. Regular canned vegetables that are not marked as low-sodium or reduced-sodium. Regular canned tomato sauce and paste that are not marked as low-sodium or reduced-sodium. Regular tomato and vegetable juices that are not marked as low-sodium or reduced-sodium. Pickles. Olives. Grains Baked goods made with fat, such as croissants, muffins, or some breads. Dry pasta or rice meal packs. Meats and other proteins Fatty cuts of meat. Ribs. Fried meat. Mcdonnell. Bologna, salami, and other precooked or cured meats, such as sausages or meat loaves, that are not lean and low in sodium. Fat from the back of a pig (fatback). Bratwurst. Salted nuts and seeds. Canned beans with added salt. Canned or smoked fish. Whole eggs or egg yolks. Chicken or turkey with skin. Dairy Whole or 2% milk, cream, and cpyn-clr-pbif. Whole or full-fat cream cheese. Whole-fat or sweetened yogurt. Full-fat cheese. Nondairy creamers. Whipped toppings. Processed cheese and cheese spreads. Fats and oils Butter. Stick margarine. Lard. Shortening. Ghee. Mcdonnell fat. Tropical oils, such as coconut, palm kernel, or palm oil. Seasonings and condiments Onion salt, garlic salt, seasoned salt, table salt, and sea salt. Worcestershire sauce. Tartar sauce. Barbecue sauce. Teriyaki sauce. Soy sauce, including reduced-sodium soy sauce. Steak sauce. Canned and packaged gravies. Fish sauce. Oyster sauce. Cocktail sauce. Store-bought horseradish. Ketchup. Mustard. Meat flavorings and tenderizers. Bouillon cubes. Hot sauces. Pre-made or packaged marinades. Pre-made or packaged taco seasonings. Relishes. Regular salad dressings. Other foods Salted popcorn and pretzels. The items listed above may not be all the foods and drinks you should avoid. Talk to a dietitian to learn more. Where to find more information ??? National Heart, Lung, and Blood [place] (NHLBI): nhlbi.nih.gov ??? [place] Heart Association (AHA): heart.org ??? Academy of Nutrition and Dietetics: eatright.org ??? National Kidney Foundation (NKF): kidney.org This information is not intended to replace advice given to you by your health care provider. Make sure you discuss any questions you have with your health care provider. Document Revised: 03/16/2023 Document Reviewed: 03/16/2023 [employer] Patient Education ? 2023 [employer].BMI for Adults Body mass index (BMI) is a number found using a person's weight and height. BMI can help tell how much of a person's weight is made up of fat. BMI does not measure body fat directly. It is used instead of tests that directly measure body fat, which can be difficult and expensive. What are BMI measurements used for? BMI is useful to: ??? Find out if your weight puts you at higher risk for medical problems. ??? Help recommend changes, such as in diet and exercise. This can help you reach a healthy weight. BMI screening can be done again to see if these changes are working. How is BMI calculated? Your height and weight are measured. The BMI is found from those numbers. This can be done with U.S[place] or metric measurements. Note that charts and online BMI calculators are available to help you find your BMI quickly and easily without doing these calculations. To calculate your BMI in U.S. measurements: 1. Measure your weight in pounds (lb). 2. Multiply the number of pounds by 703. ??? So, for an adult who weighs 150 lb, multiply that number by 703: 150 x 703, which equals 105,450. 3. Measure your height in inches. Then multiply that number by itself to get a measurement called inches squared. ??? So, for an adult who is 70 inches tall, the inches squared measurement is 70 inches x 70 inches, which equals 4,900 inches squared. 4. Divide the total from step 2 (number of lb x 703) by the total from step 3 (inches squared): 105,450 ? 4,900 = 21.5. This is your BMI. To calculate your BMI in metric measurements: 1. Measure your weight in kilograms (kg). ??? For this example, the weight is 70 kg. 2. Measure your height in meters (m). Then multiply that number by itself to get a measurement called meters squared. ??? So, for an adult who is 1.75 m tall, the meters squared measurement is 1.75 m x 1.75 m, which equals 3.1 meters squared. 3. Divide the number of kilograms (your weight) by the meters squared number. In this example: 70 ? 3.1 = 22.6. This is your BMI. What do the results mean? BMI charts are used to see if you are underweight, normal weight, overweight, or obese. The following guidelines will be used: ??? Underweight: BMI less than 18.5. ??? Normal weight: BMI between 18.5 and 24.9. ??? Overweight: BMI between 25 and 29.9. ??? Obese: BMI of 30 or above. BMI is a tool and cannot diagnose a condition. Talk with your health care provider about what your BMI means for you. Keep these notes in mind: ??? Weight includes fat and muscle. Someone with a muscular build, such as an athlete, may have a BMI that is higher than 24.9. In cases like these, BMI is not a correct measure of body fat. ??? If you have a BMI of 25 or higher, your provider may need to do more testing to find out if excess body fat is the cause. ??? BMI is measured the same way for males and females. Females usually have more body fat than males of the same height and weight. Where to find more information For more information about BMI, including tools to quickly find your BMI, go to: ??? Centers for Disease Control and Prevention: cdc.gov ??? [place] Heart Association: heart.org ??? National Heart, Lung, and Blood [place]: nhlbi.nih.gov This information is not intended to replace advice given to you by your health care provider. Make sure you discuss any questions you have with your health care provider. Document Revised: 11/17/2022 Document Reviewed: 11/10/2022 [employer] Patient Education ? 2023 [employer]Obstetrics and Gynecology Preventive Care 65 Years and Older, Female Preventive care refers to lifestyle choices and visits with your health care provider that can promote health and wellness. Preventive care visits are also called wellness exams. What can I expect for my preventive care visit? Counseling Your health care provider may ask you questions about your: ??? Medical history, including: ? Past medical problems. ? Family medical history. ? and menstrual history. ? History of falls. ??? Current health, including: ? Memory and ability to understand (cognition). ? Emotional well-being. ? Home life and relationship well-being. ? Sexual activity and sexual health. ??? Lifestyle, including: ? Alcohol, nicotine or tobacco, and drug use. ? Access to firearms. ? Diet, exercise, and sleep habits. ? Work and work environment. ? Sunscreen use. ? Safety issues such as seatbelt and bike helmet use. Physical exam Your health care provider will check your: ??? Height and weight. These may be used to calculate your BMI (body mass index). BMI is a measurement that tells if you are at a healthy weight. ??? Waist circumference. This measures the distance around your waistline. This measurement also tells if you are at a healthy weight and may help predict your risk of certain diseases, such as type 2 diabetes and high blood pressure. ??? Heart rate and blood pressure. ??? Body temperature. ??? Skin for abnormal spots. What immunizations do I need? Vaccines are usually given at various ages, according to a schedule. Your health care provider will recommend vaccines for you based on your age, medical history, and lifestyle or other factors, such as travel or where you work. What tests do I need? Screening Your health care provider may recommend screening tests for certain conditions. This may include: ??? Lipid and cholesterol levels. ??? Hepatitis C test. ??? Hepatitis B test. ??? HIV (human immunodeficiency virus) test. ??? STI (sexually transmitted infection) testing, if you are at risk. ??? Lung cancer screening. ??? Colorectal cancer screening. ??? Diabetes screening. This is done by checking your blood sugar (glucose) after you have not eaten for a while (fasting). ??? Mammogram. Talk with your health care provider about how often you should have regular mammograms. ??? BRCA-related cancer screening. This may be done if you have a family history of breast, ovarian, tubal, or peritoneal cancers. ??? Bone density scan. This is done to screen for osteoporosis. Talk with your health care provider about your test results, treatment options, and if necessary, the need for more tests. Follow these instructions at home: Eating and drinking ??? Eat a diet that includes fresh fruits and vegetables, whole grains, lean protein, and low-fat dairy products. Limit your intake of foods with high amounts of sugar, saturated fats, and salt. ??? Take vitamin and mineral supplements as recommended by your health care provider. ??? Do not drink alcohol if your health care provider tells you not to drink. ??? If you drink alcohol: ? Limit how much you have to 0?1 drink a day. ? Know how much alcohol is in your drink. In the U.S., one drink equals one 12 oz bottle of beer (355 mL), one 5 oz glass of wine (148 mL), or one 1? oz glass of hard liquor (44 mL). Lifestyle ??? [place] your teeth every morning and night with fluoride toothpaste. Floss one time each day. ??? Exercise for at least 30 minutes 5 or more days each week. ??? Do not use any products that contain nicotine or tobacco. These products include cigarettes, chewing tobacco, and vaping devices, such as e-cigarettes. If you need help quitting, ask your health care provider. ??? Do not use drugs. ??? If you are sexually active, practice safe sex. Use a condom or other form of protection in order to prevent STIs. ??? Take aspirin only as told by your health care provider. Make sure that you understand how much to take and what form to take. Work with your health care provider to find out whether it is safe and beneficial for you to take aspirin daily. ??? Ask your health care provider if you need to take a cholesterol-lowering medicine (statin). ??? Find healthy ways to manage stress, such as: ? Meditation, yoga, or listening to music. ? Journaling. ? Talking to a trusted person. ? Spending time with friends and family. ??? Minimize exposure to UV radiation to reduce your risk of skin cancer. Safety ??? Always wear your seat belt while driving or riding in a vehicle. ??? Do not drive: ? If you have been drinking alcohol. Do not ride with someone who has been drinking. ? When you are tired or distracted. ? While texting. ? If you have been using any mind-altering substances or drugs. ??? Wear a helmet and other protective equipment during sports activities. ??? If you have firearms in your house, make sure you follow all gun safety procedures. What's next? Visit your health care provider once a year for an annual wellness visit. ??? Ask your health care provider how often you should have your eyes and teeth checked. ??? Stay up to date on all vaccines. This information is not intended to replace advice given to you by your health care provider. Make sure you discuss any questions you have with your health care provider. Document Revised: 08/25/2021 Document Reviewed: 08/25/2021 [employer] Patient Education ? 2023 [employer]Preventive Health Heart Disease Prevention Heart disease is the leading cause of in the world. Coronary artery disease is the most common cause of heart disease. This condition results when cholesterol and other substances (plaque) build up inside the garrett of the blood vessels that supply your heart muscle (arteries). This buildup in arteries is called atherosclerosis. You can take actions to lower your risk of heart disease. How can heart disease affect me? Heart disease can cause many unpleasant symptoms and complications, such as: ??? Chest pain (angina). ??? Reduced or blocked blood flow to your heart. This can cause: ? Irregular heartbeats (arrhythmias). ? Heart attack. ? Heart failure. What can increase my risk? The following factors may make you more likely to develop this condition: ??? High blood pressure (hypertension). ??? High cholesterol. ??? A diet high in saturated fats or trans fats. ??? Obesity. ??? Diabetes. ??? Having a family history of heart disease. ??? Certain lifestyle factors, including: ? Smoking. ? Lack of physical activity. ? Drinking too much alcohol. What actions can I take to prevent heart disease? Nutrition ??? Follow a heart-healthy eating plan as told by your health care provider. Examples include the DASH eating plan. DASH stands for Dietary Approaches to Stop Hypertension. ??? Generally, it is recommended that you: ? Eat less salt (sodium). Ask your health care provider how much sodium is safe for you. Most people should have less than 2,300 mg each day. ? Limit unhealthy fats, such as saturated and trans fats, in your diet. You can do this by eating low-fat dairy products, eating less red meat, and avoiding processed foods. ? Eat healthy fats (omega-3 fatty acids). These are found in fish, such as mackerel or salmon. ? Eat more fruits and vegetables. You should try to fill one-half of your plate with fruits and vegetables at each meal. ? Eat more whole grains. ? Avoid foods and drinks that have added sugars. Try to limit how much added sugar you have to: ? Less than 25 grams a day for women. ? Less than 36 grams a day for men. Lifestyle ??? Get regular exercise. This is one of the most important things you can do for your health. Generally, it is recommended that you: ? Exercise for at least 30 minutes on most days of the week (150 minutes each week). This should be exercise that causes your heart to beat faster (aerobic exercise). ? Add strength exercises on at least 2 days each week. ??? Do not use any products that contain nicotine or tobacco. These products include cigarettes, chewing tobacco, and vaping devices, such as e-cigarettes. These can damage your heart and blood vessels. If you need help quitting, ask your health care provider. Alcohol use ??? Do not drink alcohol if: ? Your health care provider tells you not to drink. ? You are , may be , or are planning to become . ??? If you drink alcohol: ? Limit how much you have to: ? 0?1 drink a day for women. ? 0?2 drinks a day for men. ? Know how much alcohol is in your drink. In the [place].S., one drink equals one 12 oz bottle of beer (355 mL), one 5 oz glass of wine (148 mL), or one 1? oz glass of hard liquor (44 mL). Medicines ??? Take ptxo-avy-yplfamb and prescription medicines only as told by your health care provider. ??? Work with your health care provider to find out whether it is safe and beneficial for you to take aspirin daily. Make sure that you understand how much to take and what form to take. ??? Depending on your risk factors, your health care provider may prescribe medicines to lower your risk of heart disease or to control related conditions. You may take medicine to: ? Lower cholesterol. ? Control blood pressure. ? Control diabetes. General information ??? Keep your blood pressure under control, as recommended by your health care provider. For most healthy people, the upper number of their blood pressure (systolic) should be no higher than 120, and the lower number (diastolic) no higher than 80. Treatment may be needed if your blood pressure is higher than 130/80. ??? Have your blood pressure checked at least every 2 years. Your health care provider may check your blood pressure more often if you have high blood pressure. ??? After age 20, have your cholesterol checked every 4?6 years. If you have risk factors for heart disease, you may need to have it checked more often. Treatment may be needed if your cholesterol is high. ??? Have your body mass index (BMI) checked every year. Your health care provider can calculate your BMI from your height and weight. ??? Check your waist circumference. It should be: ? No more than 35 inches (89 cm) for women who are not . ? No more than 40 inches (102 cm) for men. ??? Work with your health care provider to lose weight, if needed, or to maintain a healthy weight. Where to find more information: ??? Centers for Disease Control and Prevention: www.cdc.gov/heartdisease ??? [place] Heart Association: www.heart.org Summary ??? Heart disease is the leading cause of in the world. ??? Heart disease can cause chest pain, abnormal heart rhythms, heart attack, and heart failure. ??? Some of the risk factors for heart disease include high blood pressure, high cholesterol, and smoking. ??? You can take actions to lower your chances of developing heart disease. Work with your health care provider to reduce your risk by following a heart-healthy diet, being physically active, and controlling your weight, blood pressure, and cholesterol level. This information is not intended to replace advice given to you by your health care provider. Make sure you discuss any questions you have with your health care provider. Document Revised: 10/27/2021 Document Reviewed: 10/27/2021 Elsevier Patient Education ? 2023 [employer] CONSULTATION NOTE Observed: 01/15/2024 3:31 PM Status: F Source: [facility] Consultation Note Patient: MATEO [place] Age: 78 years Sex: Female : 1945 Associated Diagnoses: None Author: Marilu Cornell PA-C Procedure Procedure: Left shoulder joint Steroid Injection Diagnosis: Shoulder pain, shoulder arthritis Anesthesia: Local The patient was identified in the pre-op area. The procedure, including risks benefits and alternatives was discussed with the patient. The patient agreed to proceed. Informed consent was obtained and the site(s) marked. The patient was brought to the procedure room and placed in the seated position with the arm in neutral position. Time out was performed. The shoulder region was exposed, prepped, and draped in the usual sterile fashion. 4mL of 0.5% bupivacaine combined with 40mg of triamcinolone was injected through a 25G needle to the shoulder joint using a posterior approach. The needle was removed and bandage was applied. The patient was observed and monitored for an appropriate period of time and then discharged home in good condition. Post-procedure instructions were provided to the patient. No apparent complications. Result Comment: Electronical ly Signed By: aMrilu Cornell PA-C\.br\Date and Time Signed: 01/15/24 15:32 EST CONSULTATION NOTE Observed: 01/15/2024 3:28 PM Status: F Source: [facility] Consultation Note Patient: MATEO [place] Age: 78 years Sex: Female : 1945 Associated Diagnoses: None Author: Marilu Cornell PA-C Subjective Chief complaint 01/15/2024 15:14 EST back and shoulder pain . Patient is a 78-year-old female. She presents today for follow-up after undergoing bilateral L4-5 transforaminal epidural steroid injection. This is given her 100% relief of her radicular symptoms. She had some minimal back pain but this has since resolved. She states that things are better in regards to this. She also has some left shoulder pain. She rates this a 10/10. Present with certain maneuvers. When she has to push off of a chair she has not. When she has to do overhead activity she has it. When she has to perform certain movers and twist her arm in a certain manner as she has it. Previous conservative treatments have not helped. She has used unrr-rga-fobnmny medications without any long-term relief. Previous therapy did not help. She wonders if possibly an injection into her shoulder would make this better. Health Status Allergies: Allergic Reactions (Selected) Severe [...] tab(s), Oral, Daily, 90 tab(s), Refill(s) 4, [facility]/pharmacy #[id number], 164, cm, 01/09/23 16:01:00 EDT, Height/Length Dosing, 86.6, kg, 01/09/23 16:01:00 EDT, Weight Dosing [facility] Prescription: [facility] Prescription, See Instructions, 1 EA, 0, Wheelchair, Supply acetaminophen-oxycodone 325 mg-5 mg Tab: 1 tab(s), Oral, BID, 60 tab(s), Refill(s) 0, 30 day supply, [id number], 168, cm, 12/21/23 8:31:00 EDT, Height/Length Dosing, 90.7, kg, 12/04/23 11:21:00 EDT, Weight Dosing amLODIPine 5 mg Tab: 5 mg = 1 tab(s), Oral, Daily, # 90 tab(s), Refills(s) 4, [id number], 169, cm, 03/31/23 13:47:00 EST, Height/Length Dosing, 83.6, kg, 03/31/23 13:47:00 EST, Weight Dosing cyclobenzaprine 5 mg Tab: 5 mg = 1 tab(s), Oral, Bedtime, # 30 tab(s), Refills(s) 12, [id number], 168, cm, 08/22/23 8:56:00 EDT, Height/Length Dosing, 85.5, kg, 08/22/23 8:55:00 EDT, Weight Dosing diclofenac topical 1% gel: 1 elva, Topical, QID for pain, 100 gram, Refill(s) 0, [id number], 168, cm, 12/04/23 11:21:00 EDT, Height/Length Dosing, 90.7, kg, 12/04/23 11:21:00 EDT, Weight Dosing gabapentin 300 mg Cap: 300 mg = 1 cap(s), Oral, TID, # 90 cap(s), Refills(s) 11, [id number], 168, cm, 08/22/23 8:56:00 EDT, Height/Length Dosing, 85.5, kg, 08/22/23 8:55:00 EDT, Weight Dosing nebulizer supplies: nebulizer supplies, See Instructions, 1 EA, 11, nebulizer supplies dx J44.9, [facility], Supply, 158, cm, 12/27/19 11:56:00 EDT, Height/Length Dosing, 88.6, kg, 12/27/19 11:56:00 EDT, Weight Dosing omeprazole 20 mg Cap-DR: 20 mg = 1 cap(s), Oral, Daily, # 90 cap(s), Refills(s) 4, [id number], 169, cm, 03/31/23 13:47:00 EST, Height/Length Dosing, 83.6, kg, 03/31/23 13:47:00 EST, Weight Dosing triamcinolone Top 0.1% Crm 15 gram: 1 elva, Topical, BID, 30 gram, Refill(s) 11, [id number], 164, cm, 01/09/23 16:01:00 EDT, Height/Length Dosing, 86.6, kg, 01/09/23 16:01:00 EDT, Weight Dosing Documented Medications Documented Dulcolax Tab-EC: 2-3 tabs, Oral, Daily, adjusts for constipation concerns, Refills(s) 0 Tylenol: 500 mg, Oral, q6hr, Refills(s) 0 Problem list: All Problems Tobacco use, continuous / SNOMED CT 6563439662 / Confirmed Diaphragm paralysis / SNOMED CT 438103114 / Confirmed Spigelian hernia / SNOMED CT 681223313 / Confirmed Tremor / SNOMED CT 84393370 / Confirmed DDD (degenerative disc disease), cervical / SNOMED CT 803937552 / Confirmed Bilateral hearing loss / SNOMED CT 210813212 / Confirmed GERD (gastroesophageal reflux disease) / SNOMED CT 360288941 / Confirmed HTN (hypertension) / SNOMED CT 7017762592 / Confirmed Emphysema/COPD / SNOMED CT 1992179 / Confirmed History of stroke / SNOMED CT 2273579742 / Confirmed Former smoker / SNOMED CT 86712959 / Confirmed Other urethral stricture, female / SNOMED CT 567761850 / Confirmed Mixed incontinence / SNOMED CT 70202206 / Confirmed Wears hearing aid in both ears / SNOMED CT 226100856 / Confirmed Generalized osteoarthritis / SNOMED CT 656709119 / Confirmed 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 / SNOMED CT 3263076233 / Confirmed Irritable bowel syndrome with predominant constipation / SNOMED CT 4673837070 / Confirmed Lumbar radiculopathy, right / SNOMED CT 398086089 / Confirmed Patient has healthcare proxy and living will / SNOMED CT 0656922692 / Confirmed OAB (overactive bladder) / SNOMED CT 2134863761 / Confirmed Incontinence without sensory awareness / SNOMED CT 3738489836 / Confirmed Edema / SNOMED CT 745584130 / Confirmed Peripheral neuropathy / SNOMED CT 068106316 / Confirmed Leg pain, left / SNOMED CT 9337094686 / Confirmed Dependent for transportation / SNOMED CT 678603210 / Confirmed Thoracic aorta atherosclerosis / SNOMED CT 462867823 / Confirmed Enrolled in chronic care management / SNOMED CT 918213036 / Confirmed Obesity due to excess calories / SNOMED CT 5995819421 / Confirmed Elevated diaphragm / SNOMED CT 230006977 / Confirmed Pain of right sacroiliac joint / SNOMED CT 054749006 / Confirmed RLS (restless legs syndrome) / SNOMED CT 31501208 / Confirmed Somatic dysfunction of cervical region / SNOMED CT 7129523524 / Confirmed Somatic dysfunction of thoracic region / SNOMED CT 3525982245 / Confirmed Somatic dysfunction of lumbar region / SNOMED CT 4523595292 / Confirmed Somatic dysfunction of sacral spine / SNOMED CT 0579671601 / Confirmed Somatic dysfunction of lower extremities / SNOMED CT 5221884358 / Confirmed Somatic dysfunction of rib cage region / SNOMED CT 7533018209 / Confirmed Somatic dysfunction of abdominal region / SNOMED CT 1494295596 / Confirmed Severe obstructive sleep apnea / SNOMED CT 396066842 / Confirmed Insomnia / SNOMED CT 184417848 / Confirmed S/P knee replacement / SNOMED CT 120180941 / Confirmed Mild cognitive impairment / SNOMED CT 5081262143 / Confirmed noted in 04/24/2023 Neurology Consult Note page 1. added per OP CDI policy. Stage 3a chronic kidney disease (CKD) / SNOMED CT 6260889426 / Confirmed added per 06/26/2023 query response. Major depressive disorder, recurrent, mild / SNOMED CT 613544407 / Confirmed added per 06/26/2023 query response. Chronic respiratory failure with hypoxia / SNOMED CT 1063352446 / Confirmed added per 06/26/2023 query response. 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 UTI (urinary tract infection) / SNOMED CT 444066618 / Confirmed Chronic constipation / SNOMED CT 417928642 / Confirmed Chronic low back pain / SNOMED CT 689164908 / Confirmed Spasm of lumbar paraspinous muscle / SNOMED CT 7997479344 / Confirmed Abdominal weakness / SNOMED CT 976722320 / Confirmed Stooped posture / SNOMED CT 89499963 / Confirmed Shoulder pain / SNOMED CT 19651950 / Confirmed Frozen shoulder / SNOMED CT 3662081063 / Confirmed Resolved: Stroke / SNOMED CT 614489881 left arm is weaker then right Resolved: Cervical radiculopathy / SNOMED CT 809923568 Resolved: Leg edema / SNOMED CT 153199287 Resolved: Urinary urgency / SNOMED CT 402933792 Resolved: History of UTI / SNOMED CT 1817074580 Resolved: Frequent urination / SNOMED CT 129301582 Resolved: WINTERS (dyspnea on exertion) / SNOMED CT 826384009 Resolved: Rib pain on right side / SNOMED CT 658680306 Resolved: Dizziness / SNOMED CT 6832538343 Resolved: Exposure to second hand smoke / SNOMED CT 26017676 Resolved: Bronchitis with bronchospasm / SNOMED CT 17749180 Resolved: Pain in back / SNOMED CT 932106672 Resolved: Hernia of abdominal wall / SNOMED CT 072566100 Resolved: Abdominal pain, generalized / SNOMED CT 417190866 Resolved: 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 / SNOMED CT 7630754677 Resolved: Right hip pain / SNOMED CT 91553277 Resolved: Body mass index (BMI) of 31.0-31.9 in adult / SNOMED CT 340171478 Resolved: Screening mammogram, encounter for / SNOMED CT 700292528 Resolved: Abnormal urinalysis / SNOMED CT 4912758084 Resolved: Chest pain / SNOMED CT 11050511 Canceled: GERD (gastroesophageal reflux disease) / SNOMED CT 5763044957 Canceled: HTN (hypertension) / SNOMED CT 6109087413 Canceled: Restless leg syndrome / SNOMED CT 5697554972 Canceled: At risk for falls / SNOMED CT 933527765 Problem added when Risk for Falls Careplan was initiated. Resolved due to patient discharge. Canceled: At risk for impaired skin integrity / SNOMED CT 537376478 Problem added based on documenting Adilson score less than or equal to 18, rash, or malnutrition. Resolved due to patient discharge. Canceled: Constipation / SNOMED CT 553865461 Canceled: Atypical chest pain / SNOMED CT 464128765 Canceled: Depression / SNOMED CT 61367061 Canceled: Restless leg syndrome / IMO 89591 Canceled: COPD exacerbation / SNOMED CT 891329799 Canceled: Urge incontinence / SNOMED CT 453920590 Canceled: Microscopic hematuria / SNOMED CT 283164202 Canceled: Other post-traumatic urethral stricture, female / SNOMED CT 415913733 Canceled: Flaccid bladder / SNOMED CT 4484382820 Canceled: Nocturia / SNOMED CT 218361210 Canceled: Chronic kidney disease / SNOMED CT 0309822966 Canceled: Other problems related to lifestyle / SNOMED CT 645973356 Canceled: Flank pain / SNOMED CT 819366804 Canceled: Overactive bladder due to prolapse of female genital organ / SNOMED CT 9845480224 Canceled: BMI 30.0-30.9,adult / SNOMED CT 671580308 Canceled: Stress incontinence / SNOMED CT 024040826 Canceled: Overactive bladder / SNOMED CT 3026809873 Canceled: Class 1 obesity due to excess calories in adult / SNOMED CT 0984195057 Canceled: Body mass index 32.0-32.9, adult / SNOMED CT 433994583 Canceled: Frequency of urination / SNOMED CT 230411270 Canceled: Urgency of urination / SNOMED CT 944931342 Canceled: Hypertension with heart disease / SNOMED CT 3409622086 Canceled: Hypertensive heart disease / SNOMED CT 885874692 Canceled: Community acquired pneumonia / SNOMED CT 3550528627 Canceled: Abdominal pain, RLQ / SNOMED CT 269949208 Canceled: Spigelian hernia / SNOMED CT 991988249 Canceled: Severe obesity (BMI 35.0-35.9 with comorbidity) / SNOMED CT 6599494137 Canceled: BMI 32.0-32.9,adult / SNOMED CT 099337682 Canceled: BMI 35.0-35.9,adult / SNOMED CT 311461093 Canceled: Dietary counseling / SNOMED CT 545690940 Canceled: Urgency of urination / SNOMED CT 450932936 Canceled: ESBL E. coli carrier / SNOMED CT 1758377758 ESBL E coli in urine 11/08/2020 Possible ESBL + urine 03/20/2021. Escherichia coli Canceled: Pain in thoracic spine / SNOMED CT 949719951 Canceled: Viral URI / SNOMED CT 962249343 Canceled: Body mass index 34.0-34.9, adult / SNOMED CT 086900302 Canceled: COPD with acute exacerbation / SNOMED CT 077124583 Canceled: BMI 31.0-31.9,adult / SNOMED CT 947261171 Canceled: COPD with chronic bronchitis / SNOMED CT 216127092 Canceled: Oral thrush / SNOMED CT 101240265 Canceled: Somatic dysfunction of occipitocervical region / SNOMED CT 0393419631 Canceled: Mild recurrent major depression / SNOMED CT 456287766 Canceled: Adjustment reaction / SNOMED CT 11546848 Canceled: Acute low back pain with sciatica / SNOMED CT 381118719 Canceled: Memory loss / SNOMED CT 89059556 noted in 04/24/2023 Neurology Consult Note page 1. added per OP CDI policy. Canceled: Anxiety with depression / SNOMED CT 307557922 noted in 04/24/2023 Neurology Consult Note page 1. added per OP CDI policy. Objective Vital Signs 01/15/2024 15:14 EST Peripheral Pulse Rate 81 bpm Respiratory Rate 14 br/min Systolic Blood Pressure 108 mmHg Diastolic Blood Pressure 61 mmHg Mean Arterial Pressure, Cuff 77 mmHg General: Alert and oriented, No acute distress. Eye: Normal conjunctiva. HENT: Normocephalic, Normal hearing. Cardiovascular: No edema. Musculoskeletal Normal range of motion. Normal strength. 5/5 upper and lower extremity strength other than left deltoid 4/5 Pain with left shoulder internal and external rotation Integumentary: Warm, Dry, [place]. Neurologic: Alert, Oriented. Psychiatric: Cooperative, Appropriate mood & affect. 14 point review of systems was negative unless otherwise noted. Results Review * Final Report * Reason For Exam pain POWERSCRIBE REPORT IMPRESSION: MODERATE DEGENERATIVE CHANGE LEFT SHOULDER. CLINICAL HISTORY: pain COMPARISON: NONE FINDINGS: AP, internal, external rotation, Y and axillary views of the left shoulder demonstrate no evidence of a fracture, or dislocation. Narrowing left glenohumeral joint. Osteophyte formation medial inferior aspect left humeral head. Left acromioclavicular joint and left acromial humeral interval maintained. Ordering Provider: Marilu Conrell Signature Line FINAL REPORT Dictated: 12/26/2023 4:47 pm Willi Kelly MD Signed (Electronic Signature): 12/26/2023 4:47 pm Signed by: Willi Kelly MD Transcribed by: CAROLYN Technologist: LUKAS Technical Comments Radiation Dose: Kar in mGy = na DAP = na RAD REPORT This document has an image Result type: XR Shoulder Complete Left Result date: December 26, 2023 12:36 EDT Result status: Auth (Verified) Result title: XR Shoulder Complete Left Performed by: Willi Kelly MD on December 26, 2023 16:47 EDT Verified by: Willi Kelly MD on December 26, 2023 16:47 EDT Encounter info: [id number], [facility], Outpatient, 12/26/2023 - 12/26/2023 Impression and Plan Patient is a 78-year-old female with a past medical history significant for lumbar stenosis, lumbar neuritis, left shoulder pain and left shoulder arthritis. She underwent recent bilateral L4-5 transforaminal epidural steroid injection done on 12/21/2023 that has given her 100% relief of her radicular symptoms. At this time, her biggest concern is her left shoulder pain. She is difficulty with certain maneuvers. Difficulty doing certain things. This affects her quality life. This affects her activities. Affects her ability to do things she wants to do. She is going to undergo a left shoulder injection today. Please refer to separate report. Follow-up in 4 to 6 weeks. Call the clinic in the interim should he require anything from our services. LILI score: 38%. Result Comment: Electronical ly Signed By: Marilu Cornell PA-C\.peng\Date and Time Signed: 01/15/24 15:30 EST AMBULATORY VISIT SUMMARY Observed: 01/08 11:06 AM Status: F Source: [facility] Ambulatory Visit Summary [place] :1945 Visit Date:01/09/2024 Ambulatory Visit Instructions Your Diagnosis Somatic dysfunction of thoracic region Somatic dysfunction of abdominal region Somatic dysfunction of rib cage region Somatic dysfunction of lumbar region Somatic dysfunction of sacral spine Somatic dysfunction of lower extremities Abdominal weakness Chronic constipation Elevated diaphragm Emphysema/COPD Mild cognitive impairment Spasm of lumbar paraspinous muscle Frozen shoulder Adult BMI 30.0-30.9 kg/sq m These Are [...] shaker. - Progressing Keep appointment with Dr. Sifuentes on 10/13/20 at 0920 - Done Keep [...] Prescription) Misc Prescription (nebulizer supplies) acetaminophen (Tylenol) acetaminophen-oxycodone (acetaminophen-oxycodone 325 mg-5 mg Tab) amlodipine (amLODIPine 5 mg Tab) bisacodyl (Dulcolax Tab-EC) cyclobenzaprine (cyclobenzaprine 5 mg Tab) diclofenac topical (diclofenac topical 1% gel) gabapentin (gabapentin 300 mg Cap) hydrochlorothiazide-triamterene (Maxzide-25 oral tablet) omeprazole (omeprazole 20 mg [...] Tubal ligation. Discharge Vitals Heart Rate (Peripheral) 86 Blood Pressure 120/80 Height 168 cm Height 66 in Weight 84.8 kg Weight 186.56 lb BMI 30.05 What to do next Scheduled Follow-Up Appointments Monday 3:15 PM EST With: Marilu Cornell PA-C Where: [facility] Monday 3:30 PM EST With: Where: [facility] [address] [place] [address]- Monday 8:20 AM EST With: Dakotah Gallardo DO Where: [facility] [address] [place] [address]- You Need to Schedule the Following Appointments Follow Up with Dakotah Gallardo DO, GIOVANNY, PED When: Within 1 month Comments: OMT PRN - 40 min slot To go instructions (for follow up): On the day of manipulation, I strongly encourage you to to drink more water to help flush your system after today's treatment Work on using your core muscles more when standing and sitting, and especially when leaning away from your centerline or when lifting things This may take some concentration and work initially but it will eventually become more natural to you Work on shoulder retraction exercises For patients who can tolerate anti-inflammatories and/or tylenol, those medications can help provide some comfort while you work on optimizing function Getting adequate rest is important for managing musculoskeletal pain F/u 1 month or PRN Where: [address] [place] [address] [id number] Medications What How Much When Why Instructions Unchanged acetaminophen (Tylenol) 500 Milligram By Mouth Every 6 hours Unchanged acetaminophen-oxycodone (acetaminophen-oxycodone 325 mg-5 mg Tab) 1 Tablets By Mouth 2 times a day Lumbar radiculopathy, right Polyneuropathy Acute low back pain with sciatica 30 day supply Unchanged amlodipine (amLODIPine 5 mg Tab) 1 Tablets By Mouth Every day Unchanged bisacodyl (Dulcolax Tab-EC) 2-3 tabs By Mouth Every day adjusts for constipation concerns Unchanged cyclobenzaprine (cyclobenzaprine 5 mg Tab) 1 Tablets By Mouth At bedtime Spasm of lumbar paraspinous muscle Unchanged diclofenac topical (diclofenac topical 1% gel) 1 Application Topical 4 times a day as needed for for pain Left shoulder pain Unchanged gabapentin (gabapentin 300 mg Cap) 1 Capsules By Mouth 3 times a day RLS (restless legs syndrome) Unchanged hydrochlorothiazide-triamterene (Maxzide-25 oral tablet) 1 Tablets By Mouth Every day Unchanged Misc Prescription (Handicap Placard) See instructions Expires in 5 years Unchanged Misc Prescription (Misc DME Prescription) See instructions Wheelchair Unchanged Misc Prescription (nebulizer supplies) See instructions nebulizer supplies dx J44.9 Unchanged omeprazole (omeprazole 20 mg Cap-DR) 1 Capsules By Mouth Every day Chronic GERD Unchanged triamcinolone topical (triamcinolone Top 0.1% Crm 15 gram) 1 Application Topical 2 times a day Allergies Chocolate (Anaphylaxis) Adhesive Bandage (Itching, Rash) aspirin (Nausea) iodinated radiocontrast dyes (hives, Unknown) penicillins (Itching, Rash) sulfamethoxazole (Swelling) Problems Ongoing - Any problem that you are currently receiving treatment for. 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 Incontinence without sensory awareness Insomnia Irritable bowel syndrome with predominant constipation Leg pain, left Lumbar radiculopathy, right Major depressive disorder, recurrent, mild Mild cognitive impairment Mixed incontinence OAB (overactive bladder) Obesity due to excess calories Other urethral stricture, female Pain of right sacroiliac joint Patient has healthcare proxy and living will Peripheral neuropathy RLS (restless legs syndrome) S/P knee replacement Severe obstructive sleep apnea Shoulder pain Somatic dysfunction of abdominal region Somatic dysfunction of cervical region Somatic dysfunction of lower extremities Somatic dysfunction of lumbar region Somatic dysfunction of rib cage region Somatic dysfunction of sacral spine Somatic dysfunction of thoracic region Spasm of lumbar paraspinous muscle Stage 3a chronic kidney disease (CKD) Stooped posture Thoracic aorta atherosclerosis Tremor UTI (urinary tract infection) Wears hearing aid in both ears Historical - Any problem that you are no longer receiving treatment for. Abdominal pain, generalized Abnormal urinalysis Body mass index (BMI) of 31.0-31.9 in adult Bronchitis with bronchospasm Cervical radiculopathy Chest pain Dizziness WINTERS (dyspnea on exertion) Exposure to second hand smoke Frequent urination Hernia of abdominal wall History of UTI Leg edema Pain in back 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 Rib pain on right side Right hip pain Screening mammogram, encounter for Urinary urgency Patient Survey You may receive a survey via text or e-mail asking about your office visit. Please share your experience with us by completing your survey. We appreciate your feedback and thank you for choosing us for your care. Education Materials Heat Therapy Heat therapy can help ease sore, stiff, injured, and tight muscles and joints. Heat relaxes your muscles. This may help ease your pain and muscle spasms. What are the risks? If you have any of the following conditions, do not use heat therapy unless your doctor says it is okay. These conditions include: ??? New bruises. ??? Open wounds. ??? Any of these in the area being treated: ? Healing wounds. ? Infected skin. ? Scarred skin. ??? Problems with how blood moves through your body (circulation). ??? Loss of feeling (numbness) in the part of your body that is being treated. ??? Unusual swelling of the part of the body that is being treated. ??? Blood clots. ??? Diabetes. ??? Heart disease. ??? Cancer. ??? Not being able to communicate pain. This may include young children and people who have problems with their brain function (dementia). How to use heat therapy There are different kinds of heat therapy. These include: ??? Moist heat pack. ??? Hot water bottle. ??? Electric heating pad. ??? Heated gel pack. ??? Heated wrap. ??? Warm water bath. Your doctor will tell you how to use heat therapy. In general, you should: 1. Place a towel between your skin and the heat source. 2. Leave the heat on for 20???30 minutes. Your skin may turn pink. 3. Take off the heat if your skin turns bright red. This is very important. If you cannot feel pain, heat, or cold, you have a greater risk of getting burned. Your doctor may also tell you to take a warm water bath. To do this: 1. Put a non-slip pad in the bathtub to prevent a fall. 2. Fill the bathtub with warm water. 3. Check the water temperature. 4. Soak in the water for 15???20 minutes, or as told by your doctor. 5. Be careful when you stand up after the bath. You may feel dizzy. 6. Pat yourself dry after the bath. Do not rub your skin to dry it. General recommendations for heat therapy ??? Be careful not to burn your skin when using heat therapy. High heat or using heat for a long time can cause demarco. ??? Do not sleep while using heat therapy. Only use heat therapy while you are awake. ??? Check your skin during heat therapy. ??? Do not use heat therapy if you have a new injury, especially if you have swelling on the injured area. ??? Do not use heat therapy on areas of your skin that are already irritated, such as with a rash or sunburn. ??? Do not use heat therapy if your skin turns bright red. Contact a doctor if: ??? You have blisters, redness, swelling, or loss of feeling in the area where you use heat therapy. ??? You have new pain. ??? You have pain that gets worse. Summary ??? Heat therapy is the use of heat to help ease sore, stiff, injured, and tight muscles and joints. ??? There are different types of heat therapy. Your doctor will tell you which one to use. ??? Only use heat therapy while you are awake. ??? Watch your skin to make sure you do not get burned while using heat therapy. This information is not intended to replace advice given to you by your health care provider. Make sure you discuss any questions you have with your health care provider. Document Revised: 12/30/2020 Document Reviewed: 12/30/2020 [employer] Patient Education ??? 2023 [employer]. FAMILY MEDICINE OFFICE/CLINI C NOTE Observed: 01/09/2024 10:47 AM Status: F Source: [facility] Family Medicine Office/Clini c Note Chief Complaint Shoulder pain HPI Staff Patient her for Back Pain /OMT JOE 11/24/23 Labs 08/19/23 Patient states today she is still having shoulder pain left mostly. History of Present Illness 78 Years old Female here to f/u for LOW BACK PAIN Social: The patient is a ; her passed in 1990 The patient is retired from [employer] The patient has 6 children; 5 living 18 grandchildren 1 great grand baby List of providers Pain management - Dr. Ez Fletcher Urologist - _ HPI staff / Chief Complaint confirmed with the patient Today, the patient reports their symptoms are PRESENT and is requesting OMT. Based on their report of symptoms and my exam findings, I believe OMT is appropriate today. The patient expresses consent for manipulation today. The patient is aware that a student may be present during treatment. Pain injections have helped the back pain Developed shoulder pain over the last few months But over the past month or more, the left shoulder has really been bothering her she'll occasionally feel a clunk has been trying not to use it due to pain Today, the patient describes mid back pain - 4/10 Low back pain is 3-4 out of 10 today as the patient sits At worst, low back pain is 7-8 out of 10 At best, low back pain is 3 out of 10 Described as dull ache along the belt line The patient describes minimal radiation down the legs OMT seems to help with rib pain and breathing at her appt with pain management, see below, they discussed the left shoulder pain suggested topical voltaren and PT hasn't started PT From last note: (tagged below) PHYSICAL EXAM Constitutional: Vital signs reviewed; this patient is well nourished, no acute distress Lungs: Clear to auscultation, non-labored respiration - expansion is symmetric Heart: Normal rate and rhythm, normal peripheral perfusion ABD: bowel sounds in all four quadrants, not tympanic - some tenderness around her hernia - mild MSK: Gait is slow shuffling gait with stooped posture SI joint is tender on the left Lumbar paraspinal muscle tight/tender bilaterally; worse on the left Core muscles are sub-optimal in tension at rest - reducible midline hernia Skin: Warm, dry Neurologic: Awake, alert and oriented Psychiatric: Cooperative, appropriate mood and affect, judgement is appropriate Procedure documentation - Osteopathic Manipulation: Thoracic Spine: Chronic and acute tissue texture changes of the trapezius, rhomboid BILAT; worse on the left - treated with myofascial, BLT and FPR - with objective and subjective improvement Lumbar Spine: Lumbar paraspinal restriction on the BILAT; worse on the left - treated with myofascial, BLT and FPR - with objective and subjective improvement Sacral: SI dysfunction on the BILAT; worse on the left - treated with BLT and FPR - with objective and subjective improvement Lower Extremity: Psoas restriction and tenderness on the left, and fibular head dysfunction and lateral gastroc restriction on the left - treated with BLT and FPR - with objective and subjective improvement Rib: exhalation dysfunction of rib 7 on the left - treated with rib raising and BLT - with objective and subjective improvement Abdomen: Diaphragm restriction bilat - worse on the right - treated with inhibition to the diaphragm - with objective and subjective improvement PLAN: [...] sweats. 2. Spasm of lumbar paraspinous muscle (M62.830), Spasm of thoracic paraspinal muscle (M62.830) Acute on chronic Likely contributing to the above Etiology is likely a combination of sub-optimal mechanics, muscle imbalance, posture vs other Discussed with the patient today about the importance of optimizing function and mechanics Emphasis placed on improving posture and trunk strength, stability Improved with OMM F/u 1 month 3. Abdominal weakness (R19.8) Acute on chronic Sub-optimal Likely playing a role in the patient's low back pain - as weak core muscles lead to overuse of posterior erector muscle groups and hip flexors for postural stability Given instructions on how to begin engaging core muscles - supine with knees bent Discussed how this will help with trunk stability and share the work with her other erector muscles f/u 1 month 4. Hip flexor tightness (M24.559) Chronic Sub-optimal control Likely stemming from sub-optimal mechanics Discussed how underuse of abdominal muscles to provide trunk stability can lead to an overreliance on hip flexors, hamstrings and lumbar paraspinals which can lead to increase/ worsening of low back pain And if the patient has DDD, arthritis etc, can aggravate those symptoms as well See #3 Trunk stability exercises reviewed today Address abdominal weakness F/u 1 month or PRN 5. Poor posture (R29.3) Acute on chronic Likely contributes to above Work on core strength exercises reviewed today Explained how this will help offload the work down by the lumbar erectors and help reduce the strain the patient feels in the low back region Discussed how to work on this between appts Discussed on this can play a role in straining the muscles of the cervical spine and can contribute to headaches as well Work on postural exercises F/u 1 month or PRN 6. Hamstring tightness (M62.89) Acute on chronic Likely leading to low back pain Discussed how this is often associated with sub-optimal abdominal/core strength as well Described how this is often associated with low back pain Exercises for core strength recommended today Consider PT if the patient doesn't improve on their own F/u 1 month 7. 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 Time spent with manipulation was over and above the noted 30 minutes. Patient was counseled on the above diagnosis and treatment, all questions were answered and patient agrees to adhere to the plan above. Risk and benefits of appropriate procedures and medications were reviewed as well with patient, who voiced understanding and agreement. Patient was counseled on smoking cessation and/or continuing to abstain from nicotine/tobacco products as appropriate based on history; as smoking/nicotine can contribute to increased pain overall and decreased wound healing. Patient counseled on maintaining a healthy BMI as part of the total treatment of their pain and to reduce stress/strain on joints. Patient invited to return or call with any questions or concerns that arise. from last note: Impression and Plan Patient is a 78-year-old female with a past medical history significant for sacroiliitis, lumbar stenosis, lumbar neuritis and left shoulder pain. In regards to the lumbar stenosis and lumbar neuritis patient underwent previous transforaminal epidural steroid injection with improvement. Recently, her lower back pain with right greater than left radiating leg pain as well as numbness and tingling as well as weakness has started to intensify. She underwent injection in August 2022 with significant relief. Based on her imaging findings, her pain pattern, her failure to improve with conservative treatments and thus significant response she got from the previous injection I recommended to patient a bilateral L4-5 transforaminal epidural steroid injection under fluoroscopy for both diagnostic and therapeutic purposes. Procedure was discussed. Risk and benefits were discussed. Patient is agreeable. She will follow-up 2 weeks after the injection for reevaluation. In regards to her left shoulder pain we discussed a left shoulder x-ray, enrolling in a physical therapy program for some home exercises and Voltaren gel. A prescription will be written for this. We discussed the possibility of future left shoulder injection but I would recommend conservative treatments first. She will trial these. Follow-up as well mention. LILI score:51% [1] Review of Systems PHQ Score Initial Depression Screen Score: 1 SCORE Physical Exam Vitals & Measurements HR: 86(Peripheral) BP: 120/80 SpO2: 90% HT: 66 in HT: 168 cm WT: 84.8 kg WT: 186.56 lb BMI: 30.05 Assessment/Plan 1. Somatic dysfunction of thoracic region (M99.02: Segmental and somatic dysfunction of thoracic region) Manipulation described as above Provided with permission by the patient The patient tolerated manipulation well and the procedure went as planned without incident Range of motion and function have improved with objective improvement of signs and subjective improvement of symptoms Patient to follow-up in 3-4 weeks for additional manipulation if needed (or sooner PRN) Discussed the importance of addressing core strength 2. Somatic dysfunction of abdominal region (M99.09: Segmental and somatic dysfunction of abdomen and other regions) 3. Somatic dysfunction of rib cage region (M99.08: Segmental and somatic dysfunction of rib cage) 4. Somatic dysfunction of lumbar region (M99.03: Segmental and somatic dysfunction of lumbar region) 5. Somatic dysfunction of sacral spine (M99.04: Segmental and somatic dysfunction of sacral region) 6. Somatic dysfunction of lower extremities (M99.06: Segmental and somatic dysfunction of lower extremity) 7. Abdominal weakness (R19.8: Other specified symptoms and signs involving the digestive system and abdomen) 8. Chronic constipation (K59.09: Other constipation) improved with dulcolax 9. Elevated diaphragm (J98.6: Disorders of diaphragm) 10. Emphysema/COPD (J43.1: Panlobular emphysema) continues to get benefit from OMT 11. Mild cognitive impairment (G31.84: Mild cognitive impairment of uncertain or unknown etiology) 12. Spasm of lumbar paraspinous muscle (M62.830: Muscle spasm of back) 13. 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) Chronic Sub-optimal control Discussed the multifactorial nature of this AROM of motion exercises discussed OMT performed today Discussed rationale for PT; deferred Discussed rationale for medication management F/u PRN Adult BMI 30.0-30.9 kg/sq m (Z68.30: Body mass index [BMI] 30.0-30.9, adult) Ordered: Body Mass Index (BMI) documented 3008F Current tobacco non-user 1036F Depression Screening Negative 3352F Fall Risk Screen 2 or more w/injury 1100F Influenza immunization administered or previously received 4274F Most recent diastolic blood pressure 80-89 mm Hg 3079F Systolic BP <130 mm Hg (Most Recent) 3074F Follow-up With When Contact Information Dakotah Gallardo DO, GIOVANNY, PED Within 1 month [address] [place] [address] [phone] Additional Instructions: OMT PRN - 40 min slot To go instructions (for follow up): On the day of manipulation, I strongly encourage you to to drink more water to help flush your system after today's treatment Work on using your core muscles more when standing and sitting, and especially when leaning away from your centerline or when lifting things This may take some concentration and work initially but it will eventually become more natural to you Work on shoulder retraction exercises For patients who can tolerate anti-inflammatories and/or tylenol, those medications can help provide some comfort while you work on optimizing function Getting adequate rest is important for managing musculoskeletal pain F/u 1 month or PRN Patient Education Heat Therapy, [id number] Problem List/Past Medical History Ongoing 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 Incontinence without sensory awareness Insomnia Irritable bowel syndrome with predominant constipation Leg pain, left Lumbar radiculopathy, right Major depressive disorder, recurrent, mild Mild cognitive impairment Mixed incontinence OAB (overactive bladder) Obesity due to excess calories Other urethral stricture, female Pain of right sacroiliac joint Patient has healthcare proxy and living will Peripheral neuropathy RLS (restless legs syndrome) S/P knee replacement Severe obstructive sleep apnea Shoulder pain Somatic dysfunction of abdominal region Somatic dysfunction of cervical region Somatic dysfunction of lower extremities Somatic dysfunction of lumbar region Somatic dysfunction of rib cage region Somatic dysfunction of sacral spine Somatic dysfunction of thoracic region Spasm of lumbar paraspinous muscle Stage 3a chronic kidney disease (CKD) Stooped posture Thoracic aorta atherosclerosis Tremor UTI (urinary tract infection) Wears hearing aid in both ears Historical Abdominal pain, generalized Abnormal urinalysis Body mass index (BMI) of 31.0-31.9 in adult Bronchitis with bronchospasm Cervical radiculopathy Chest pain Dizziness WINTERS (dyspnea on exertion) Exposure to second hand smoke Frequent urination Hernia of abdominal wall History of UTI Leg edema Pain in back 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 Rib pain on right side Right hip pain Screening mammogram, encounter for Urinary urgency Procedure/Surgical History Injection of nerve root of sacral spine [...] Corns and callus, mole removal, Tubal ligation. Medications acetaminophen-oxycodone 325 mg-5 mg Tab, 1 tab(s), Oral, BID amLODIPine 5 mg Tab, 5 mg= 1 tab(s), Oral, Daily, 4 refills cyclobenzaprine 5 mg Tab, 5 mg= 1 tab(s), Oral, Bedtime, 12 refills diclofenac topical 1% gel, 1 elva, Topical, QID, PRN, Not taking Dulcolax Tab-EC, 2-3 tabs, Oral, Daily gabapentin 300 mg Cap, 300 mg= 1 cap(s), Oral, TID, 11 refills Handicap Placard, See Instructions Maxzide-25 oral tablet, 1 tab(s), Oral, Daily, 4 refills Misc DME Prescription, See Instructions nebulizer supplies, See Instructions, 11 refills omeprazole 20 mg Cap-DR, 20 mg= 1 cap(s), Oral, Daily, 4 refills triamcinolone Top 0.1% Crm 15 gram, 1 elva, Topical, BID, 11 refills, Not taking Tylenol, 500 mg, Oral, q6hr Allergies Chocolate (Anaphylaxis) Adhesive Bandage (Itching, Rash) [...] Previous treatment: None. Household tobacco concerns: No., 01/09/2024 Family History Alcoholism: Father. Metastatic cancer: Mother. Parkinson disease: Father. Parkinson's disease: Father. Primary malignant neoplasm of colon: Mother. Immunizations Vaccine Date Status Comments influenza virus vaccine, inactivated 11/24/2023 Given influenza virus vaccine, inactivated - Not Given Vaccine Storage zoster vaccine, inactivated 05/22/2023 Recorded zoster vaccine live 02/06/2023 Recorded Zoster Recombinant per [facility] zoster vaccine, inactivated 02/06/2023 Recorded influenza virus vaccine, inactivated 01/09/2023 Given Early/Late Reason: System Down SARS-CoV-2 (COVID-19) [id number] 01/18/2022 Given influenza virus vaccine, inactivated 01/18/2022 Given influenza virus vaccine, inactivated - Not Given Postpone due to refusal SARS-CoV-2 (COVID-19) mRNA BNT-162b2 vax 01/13/2021 Given influenza virus vaccine, inactivated 12/09/2020 Given SARS-CoV-2 (COVID-19) mRNA-1273 vaccine 05/18/2020 Recorded SARS-CoV-2 (COVID-19) mRNA-1273 vaccine 05/18/2020 Recorded Patrice & Patrice vaccine administered with [facility] dept ImpactSIIS scanned with date influenza virus vaccine, inactivated 12/27/2019 Given influenza virus vaccine, inactivated 12/18/2018 Given influenza virus vaccine, inactivated 01/09/2018 Recorded pneumococcal 13-valent vaccine 03/29/2017 Recorded influenza virus vaccine, inactivated 12/08/2016 Recorded influenza virus vaccine, inactivated 12/17/2015 Recorded pneumococcal 23-valent vaccine 01/21/2014 Recorded pneumococcal 23-valent vaccine 12/16/2013 Recorded pneumococcal 23-valent vaccine 01/04/2008 Recorded [1] Pain Managment Follow up; Marilu Cornell PA-C 12/04/2023 11:32 EDT Result Comment: Electronical ly Signed By: Dakotah Gallardo DO\.br\Date and Time Signed: 01/10/24 15:29 EDT PATIENT EDUCATION Observed: 01/08/2024 9:51 AM Status: F Source: [facility] Patient Education Physical Medicine and Rehabilitation Heat Therapy Heat therapy can help ease sore, stiff, injured, and tight muscles and joints. Heat relaxes your muscles. This may help ease your pain and muscle spasms. What are the risks? If you have any of the following conditions, do not use heat therapy unless your doctor says it is okay. These conditions include: ??? New bruises. ??? Open wounds. ??? Any of these in the area being treated: ? Healing wounds. ? Infected skin. ? Scarred skin. ??? Problems with how blood moves through your body (circulation). ??? Loss of feeling (numbness) in the part of your body that is being treated. ??? Unusual swelling of the part of the body that is being treated. ??? Blood clots. ??? Diabetes. ??? Heart disease. ??? Cancer. ??? Not being able to communicate pain. This may include young children and people who have problems with their brain function (dementia). How to use heat therapy There are different kinds of heat therapy. These include: ??? Moist heat pack. ??? Hot water bottle. ??? Electric heating pad. ??? Heated gel pack. ??? Heated wrap. ??? Warm water bath. Your doctor will tell you how to use heat therapy. In general, you should: 1. Place a towel between your skin and the heat source. 2. Leave the heat on for 20?30 minutes. Your skin may turn pink. 3. Take off the heat if your skin turns bright red. This is very important. If you cannot feel pain, heat, or cold, you have a greater risk of getting burned. Your doctor may also tell you to take a warm water bath. To do this: 1. Put a non-slip pad in the bathtub to prevent a fall. 2. Fill the bathtub with warm water. 3. Check the water temperature. 4. Soak in the water for 15?20 minutes, or as told by your doctor. 5. Be careful when you stand up after the bath. You may feel dizzy. 6. Pat yourself dry after the bath. Do not rub your skin to dry it. General recommendations for heat therapy ??? Be careful not to burn your skin when using heat therapy. High heat or using heat for a long time can cause demarco. ??? Do not sleep while using heat therapy. Only use heat therapy while you are awake. ??? Check your skin during heat therapy. ??? Do not use heat therapy if you have a new injury, especially if you have swelling on the injured area. ??? Do not use heat therapy on areas of your skin that are already irritated, such as with a rash or sunburn. ??? Do not use heat therapy if your skin turns bright red. Contact a doctor if: ??? You have blisters, redness, swelling, or loss of feeling in the area where you use heat therapy. ??? You have new pain. ??? You have pain that gets worse. Summary ??? Heat therapy is the use of heat to help ease sore, stiff, injured, and tight muscles and joints. ??? There are different types of heat therapy. Your doctor will tell you which one to use. ??? Only use heat therapy while you are awake. ??? Watch your skin to make sure you do not get burned while using heat therapy. This information is not intended to replace advice given to you by your health care provider. Make sure you discuss any questions you have with your health care provider. Document Revised: 12/30/2020 Document Reviewed: 12/30/2020 [employer] Patient Education ? 2023 [employer] XR SHOULDER COMPLETE LEFT Observed: 12/11 11:58 AM Status: F Source: [facility] Exam Date/Time: 12/26/2023 12:36 EDT Reason for Exam: pain Report IMPRESSION: MODERATE DEGENERATIVE CHANGE LEFT SHOULDER. CLINICAL HISTORY: pain COMPARISON: NONE FINDINGS: AP, internal, external rotation, Y and axillary views of the left shoulder demonstrate no evidence of a fracture, or dislocation. Narrowing left glenohumeral joint. Osteophyte formation medial inferior aspect left humeral head. Left acromioclavicular joint and left acromial humeral interval maintained. Ordering Provider: Marilu Cornell FINAL REPORT Dictated: 12/26/2023 4:47 pm Willi Kelly MD Signed (Electronic Signature): 12/26/2023 4:47 pm Signed by: Willi Kelly MD Transcribed by: CAROLYN Technologist: LUKAS Technical Comments Radiation Dose: Kar in mGy = na DAP = na OPERATIVE REPORT Observed: 12/21/2023 9:31 AM Status: F Source: [facility] Operative Report Diagnosis: m54.16, lumbar radiculopathy Procedure: Bilateral L4/5 lumbar transforaminal epidural steroid injections under fluoroscopic guidance Anesthesia: Local Complications: none Vueway contrast used due to patient allergy. After informed consent was obtained, the patient was brought to the procedure suite placed in the prone position. Pulse oximetry and blood pressure were monitored throughout. The low back area is prepped and draped in usual sterile fashion. Using fluoroscopic guidance, skin and subcutaneous tissue overlying the trajectory of the neuroforamina were anesthetized with 2% lidocaine. A 22-gauge Sprotte needles were then advanced under fluoroscopic guidance to the appropriate foramina. Needle tip positions were confirmed under at least 2 fluoroscopic views. Injection of contrast revealed appropriate spread of the dye without vascular uptake. Next, at each site, 1.5 mL of 1.0% lidocaine with 5 mg of dexamethasone was injected through each needle tip. The needles were then removed and the patient was then transferred to the recovery room in stable condition. The pain tolerated the procedure well. There were no apparent complications. Follow-up: The patient will update us on the response to this procedure, and agrees to comply to currently prescribed/recommended therapies. Result Comment: Electronical ly Signed By: Zachariah Fletcher DO\.br\Date and Time Signed: 12/21/23 09:31 EDT MAIN OR INTRAOPERATIVE RECORD Observed: 12/21/2023 9:24 AM Status: F Source: [facility] Main OR Intraoperative Recor d IntraOp Document Type FTPM Summary Primary Physician: Zachariah Fletcher DO Finalized Date/Time: 12/21/23 09:30:41 Pt. Name: MATEO [place] Peyton Auguste./Sex: 1945 Female Med Rec #: [id number] Physician: Zachariah Fletcher DO Financial #: [id number] Pt. Type: P Room/Bed: / Admit/Disch: 12/21/23 08:15:50 - Institution: Case Times FTPM Entry 1 Patient Times In Room 12/21/23 09:21:00 Out Room 12/21/23 09:30:00 Procedure Times Start 12/21/23 09:24:00 Stop 12/21/23 09:29:00 Anesthesia Times Last Modified By: Melani RN, Kathy Ojeda 12/21/23 09:30:28 Case Attendance FTPM Entry 1 Entry 2 Entry 3 Case Attendee Chance AGUAYO, Zachariah Polo RN, Derick Thompson Role Performed Surgeon - Primary Staff - Other Tribunal Member Time In 12/21/23 09:21:00 12/21/23 09:21:00 12/21/23 09:21:00 Time Out 12/21/23 09:30:00 12/21/23 09:30:00 12/21/23 09:30:00 Procedure TRANSFORAMINAL EPIDURAL TRANSFORAMINAL EPIDURAL TRANSFORAMINAL EPIDURAL STEROID STEROID STEROID INJECTIO(Bilateral) INJECTIO(Bilateral) INJECTIO(Bilateral) Comments Last Modified By: Melani RN, Kathy Polo RN, Kathy Polo RN, Kathy Ojeda 12/21/23 09:30:30 12/21/23 09:30:30 12/21/23 09:30:30 Entry 4 Entry 5 Case Attendee Nilo RN, Nadja Rendon RN, Timothy Hughes Role Performed Scrub - Primary Health Program Manager - Primary Time In 12/21/23 09:21:00 12/21/23 09:21:00 Time Out 12/21/23 09:30:00 12/21/23 09:30:00 Procedure TRANSFORAMINAL EPIDURAL TRANSFORAMINAL EPIDURAL STEROID STEROID INJECTIO(Bilateral) INJECTIO(Bilateral) Comments Last Modified By: Melani RN, Kathy Polo RN, Kathy Ojeda 12/21/23 09:30:30 12/21/23 09:30:30 Perioperative Protocols FTPM Pre-Care Text: Implements protective measures prior to operative or invasive procedure, confirms identity before the operative or invasive procedure, verifies operative procedure, surgical site, and laterality Entry 1 Procedure(s) TRANSFORAMINAL EPIDURAL Patient Identity Birthday, ID Band STEROID Verified (select at Check, Patient INJECTIO(Bilateral) least 2): Participation Consents / H and P H&P, Surgery/Procedure Operative Site Present Verified Consent Marking Verified Surgical Site Yes Laterality Verified Yes Verified Procedure Verified Yes Correct Patient Yes Position Verified Availability Equipment, Medication, Prep Dry Yes Verified (If X-ray Applicable) PreOp Antibiotic No Time Out Justice VILLALPANDO, Nilo Lawrence RN, Chance Saez DO, Bradford A., Kathy Polo RN, Hargrove, Bryce Time Out Complete 12/21/23 09:22:00 Outcomes Met? Yes Last Modified By: Kathy Polo RN 12/21/23 09:24:00 Post-Care Text: The patient is free from signs and symptoms of injury caused by extraneous objects Allergy Information FTPM Pre-Care Text: Verifies allergies Entry 1 Allergies Reviewed? Yes Allergies Reviewed Self/Patient With Outcomes Met? Yes Last Modified By: Kathy Polo RN 12/21/23 08:42:44 Post-Care Text: The patient received appropriate medication(s) safely administered during the perioperative period Surgical Procedures FTPM Entry 1 Procedure Description Procedure TRANSFORAMINAL EPIDURAL Modifiers Bilateral STEROID INJECTION Surgeon Description L4/5 TFESI Primary Procedure Yes Primary Surgeon Zachariah Fletcher DO Start 12/21/23 09:24:00 Stop 12/21/23 09:29:00 Anesthesia Type None Surgical Service Pain Management Wound Class 1 - Clean Last Modified By: Ktahy Polo RN 12/21/23 09:30:32 General Case Data FTPM Pre-Care Text: Classifies surgical wound, implements aseptic technique, initiates traffic control Entry 1 Case Information OR Pain Proc Room Case Level Level 2 Wound Class 1 - Clean Specialty Pain Management Preop Diagnosis M54.16 Postop Same As Preop Yes Postop Diagnosis M54.16 Outcomes Met? Yes Last Modified By: Kathy Polo RN 12/21/23 09:24:11 Post-Care Text: The patient is free from signs and symptoms of infection Skin Assessment (Pre Procedure) FTPM Pre-Care Text: Implements protective measures to prevent skin/ tissue injury due to thermal or mechanical sources Evaluates for signs and symptoms of physical injury to skin and tissue Entry 1 Skin Integrity Intact, [place], Warm, & Skin Abnormality No Dry Outcomes Met? Yes Last Modified By: Kathy Polo RN 12/21/23 08:42:52 Post-Care Text: The patient is free from [...] Procedure TRANSFORAMINAL EPIDURAL Body Position Prone STEROID INJECTIO(Bilateral) Feet Uncrossed? Yes Left Arm Position Resting at Side Right Arm Position Resting at Side Left Leg Position Extended Right Leg Position Extended Positioning Device Pillow Under Head Large, Safety Strap, Pillow Large Under Knees Press Points Checked Yes By Timothy Rendon RN Outcomes Met? Yes Last Modified By: Kathy Polo RN 12/21/23 09:24:21 Post-Care Text: The patient is free from signs and symptoms of injury related to positioning Transport To OR FT Pre-Care Text: Transports according to individual needs. Evaluates for signs and symptoms of skin and tissue injury as a result of transfer or transport Entry 1 Via Cart By Timothy Rendon RN Safety Precautions Safety Strap, Side Outcomes Met? Yes Rails Up Last Modified By: Kathy Polo RN 12/21/23 09:24:25 Post-Care Text: The patient is free from signs and symptoms of injury related to transfer/transport Skin Prep FTPM Pre-Care Text: Performs skin preparations Entry 1 Procedure TRANSFORAMINAL EPIDURAL Prep Area BLOCK INJECTION SITE STEROID INJECTIO(Bilateral) Prep Agents Chloraprep/Dry Prior to Start Dry Time 12/21/23 09:21:00 Draping Stop Dry Time 12/21/23 09:24:00 Hair Removal Methods Not Indicated By Nadja Corcoran RN Outcomes Met? Yes Last Modified By: Kathy Polo RN 12/21/23 09:24:45 Post-Care Text: The patient is free from signs and symptoms of infection Departure From OR FT Pre-Care Text: Transports according to individual needs. Evaluates for signs and symptoms of skin and tissue injury as a result of transfer or transport. Entry 1 Via Cart Safety Precautions Safety Strap, Side Rails Up PostOp Destination PACU Transported By Timothy Rendon RN Patient Status Stable Report Given Irene Loomis RN To/Hand Off Communication Skin. Condition Dry, Intact Airway Maintenance Oxygen in Use? No Outcomes Met? Yes Last Modified By: Kathy Polo RN 12/21/23 09:24:57 Post-Care Text: The patient is free from signs and symptoms of injury related to transfer/transport Dressing/Packing FTPM Pre-Care Text: Administers care to wound sites Entry 1 Type Dressing Site and Details 4x4 and opsite x 2 Outcomes Met? Yes Last Modified By: Kathy Polo RN 12/21/23 09:25:16 Post-Care Text: The patient is free from signs and symptoms of infection Medication Administration FTPM Pre-Care Text: Verifies allergies, administers prescribed medications and solutions, administers prescribed antibiotic therapy and immunizing agents as ordered, evaluates response to medications Administers prescribed medications and solutions Entry 1 Route of Admin Block Expiration Date Yes Verified Ordered By Zachariah Fletcher DO Transcribed/To Timothy Rendon RN By Administered By Zachariah Fletcher DO Outcomes Met? Yes Last Modified By: Kathy Polo RN 12/21/23 09:25:22 Post-Care Text: The patient received appropriate medication(s) safely administered during the perioperative period X-Rays & Images FTPM Pre-Care Text: Assess history of previous radiation exposure and implements protective measures Entry 1 X-Ray Type C-Arm Contrast Used? Yes Outcomes Met? Yes Last Modified By: Kathy Polo RN 12/21/23 09:26:10 Post-Care Text: The patient is free from signs and symptoms of radiation injury General Comments: Vueway used in place of contrast dye Case Comments <None> Finalized By: Kathy Polo RN Document Signatures Signed By: Kathy Polo RN 12/21/23 09:30 MAIN OR PREOPERATIVE RECORD Observed: 9:15 AM Status: F Source: [facility] Main OR Preoperative Record Holding Area Document Type FTPM Summary Primary Physician: Zachariah Fletcher DO Finalized Date/Time: 12/21/23 08:29:59 Pt. Name: MATEO [place]/Sex: 1945 Female Med Rec #: [id number] Physician: Zachariah Fletcher DO Financial #: [id number] Pt. Type: P Room/Bed: / Admit/Disch: 12/21/23 08:15:50 - Institution: Case Times Holding [facility] Pre-Care Text: Verifies consent for planned procedure, identifies individual values and wishes concerning care, includes family members in perioperative teaching Secures patient's records' belongings, and valuables, maintains patient's dignity and privacy, and maintains patient confidentiality Entry 1 In Holding 12/21/23 08:28:00 Outcomes Met? Yes Last Modified By: Oliva Espino RN 12/21/23 08:28:28 Post-Care Text: The patient participates in decisions affecting his or her perioperative plan of care The patient's right to privacy is maintained Surgery Checklist [facility] Entry 1 Patient Birthday, ID Band Procedure History and Physical, Identification: Check, Patient Verification: With Patient Participation NPO after Midnight: n/a Date/Time: 12/21/23 08:28:00 Personal Items: Cataract Lens Implant, Personal Items 2 rings Glasses, Jewelry Comment: Complaints of Pain: Yes Pain Comment: 12/20 low back pain Operative Site Yes Marked By: Chance Marking: Location: Lumbar Availability Equipment, X-Ray Verified: Does Patient Smoke No Patient states Yes Comment - Adult [place] postop adult Supervision supervision available Case Cancelled in No Holding Area see comments below for reason Last Modified By: Oliva Espino RN 12/21/23 08:29:53 General Comments: Juice @ 0815 Finalized By: Oliva Espino RN Document Signatures Signed By: Oliva Espino RN 12/21/23 08:29 CONSULTATION NOTE Observed: 12/04/2023 11:32 AM Status: F Source: [facility] Consultation Note Patient: M[place]O [place] Age: 78 years Sex: Female : 1945 Associated Diagnoses: None Author: Marilu Cornell PA-C Subjective Chief complaint 12/04/2023 11:13 EDT left shoulder pain . Patient is a 78-year-old female. She presents today after a few month hiatus. She is here today with complaints of lower back pain with right greater than left radiating leg pain. This gets worse as the day goes on. When she is up and active the leg pain starts. This affects her ambulatory status. This affects her quality life. Affects her activities and affects her ability to do things she wants to do. Previous therapy did not help. She did this at [facility]. She still continues to do home exercises. She has a history of transforaminal epidural steroid injection done in August 2022 with relief of the right radiating leg pain. She feels that this has returned. She is also noting a lot of left shoulder pain. She rates this a 9/10. The shoulder pain started within the last week. She states that she has to push off with her arms to get up out of a chair. She states that she has to do this because of the leg fatigue. She rates the lower back and leg pain a 4?6/10 depending on her activities. She is here today to discuss options for both of these things. Health Status Allergies: Allergic Reactions (Selected) Severe [...] 86.6, kg, 01/09/23 16:01:00 EDT, Weight Dosing [facility] Prescription: [facility] Prescription, See Instructions, 1 EA, 0, Wheelchair, Supply acetaminophen-oxycodone 325 mg-5 mg Tab: 1 tab(s), Oral, BID, 60 tab(s), Refill(s) 0, 30 day supply, [id number], 168, cm, 08/22/23 8:56:00 EDT, Height/Length Dosing, 85.5, kg, 08/22/23 8:55:00 EDT, Weight Dosing amLODIPine 5 mg Tab: 5 mg = 1 tab(s), Oral, Daily, # 90 tab(s), Refills(s) 4, [id number], 169, cm, 03/31/23 13:47:00 EST, Height/Length Dosing, 83.6, kg, 03/31/23 13:47:00 EST, Weight Dosing cyclobenzaprine 5 mg Tab: 5 mg = 1 tab(s), Oral, Bedtime, # 30 tab(s), Refills(s) 12, [id number], 168, cm, 08/22/23 8:56:00 EDT, Height/Length Dosing, 85.5, kg, 08/22/23 8:55:00 EDT, Weight Dosing gabapentin 300 mg Cap: 300 mg = 1 cap(s), Oral, TID, # 90 cap(s), Refills(s) 11, [id number], 168, cm, 08/22/23 8:56:00 EDT, Height/Length Dosing, 85.5, kg, 08/22/23 8:55:00 EDT, Weight Dosing nebulizer supplies: nebulizer supplies, See Instructions, 1 EA, 11, nebulizer supplies dx J44.9, [facility], Supply, 158, cm, 12/27/19 11:56:00 EDT, Height/Length Dosing, 88.6, kg, 12/27/19 11:56:00 EDT, Weight Dosing omeprazole 20 mg Cap-DR: 20 mg = 1 cap(s), Oral, Daily, # 90 cap(s), Refills(s) 4, [id number], 169, cm, 03/31/23 13:47:00 EST, Height/Length Dosing, 83.6, kg, 03/31/23 13:47:00 EST, Weight Dosing triamcinolone Top 0.1% Crm 15 gram: 1 elva, Topical, BID, 30 gram, Refill(s) 11, [id number], 164, cm, 01/09/23 16:01:00 EDT, Height/Length Dosing, 86.6, kg, 01/09/23 16:01:00 EDT, Weight Dosing Documented Medications Documented Dulcolax Tab-EC: 2-3 tabs, Oral, Daily, adjusts for constipation concerns, Refills(s) 0 Tylenol: 500 mg, Oral, q6hr, Refills(s) 0 Problem list: All Problems 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 Constipation / SNOMED CT 679148650 / Confirmed Tremor / SNOMED CT 01003832 / Confirmed DDD (degenerative disc disease), cervical / SNOMED CT 588924388 / Confirmed Bilateral hearing loss / SNOMED CT 579883369 / Confirmed GERD (gastroesophageal reflux disease) / SNOMED CT 734518697 / Confirmed HTN (hypertension) / SNOMED CT 3984082393 / Confirmed Emphysema/COPD / SNOMED CT 6874924 / Confirmed History of stroke / SNOMED CT 9222085381 / Confirmed Former smoker / SNOMED CT 12332686 / Confirmed Other urethral stricture, female / SNOMED CT 808910144 / Confirmed Mixed incontinence / SNOMED CT 53569713 / Confirmed Wears hearing aid in both ears / SNOMED CT 573640891 / Confirmed Generalized osteoarthritis / SNOMED CT 348172797 / Confirmed 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 / SNOMED CT 0439032014 / Confirmed Irritable bowel syndrome with predominant constipation / SNOMED CT 4687348255 / Confirmed Lumbar radiculopathy, right / SNOMED CT 757319590 / Confirmed Patient has healthcare proxy and living will / SNOMED CT 0441502342 / Confirmed OAB (overactive bladder) / SNOMED CT 1444869688 / Confirmed Incontinence without sensory awareness / SNOMED CT 5551444171 / Confirmed Edema / SNOMED CT 406238201 / Confirmed Peripheral neuropathy / SNOMED CT 115541049 / Confirmed Leg pain, left / SNOMED CT 0971667504 / Confirmed Dependent for transportation / SNOMED CT 927137549 / Confirmed Thoracic aorta atherosclerosis / SNOMED CT 412365576 / Confirmed Enrolled in chronic care management / SNOMED CT 167055570 / Confirmed Obesity due to excess calories / SNOMED CT 0982763163 / Confirmed Elevated diaphragm / SNOMED CT 709218187 / Confirmed Pain of right sacroiliac joint / SNOMED CT 258401663 / Confirmed RLS (restless legs syndrome) / SNOMED CT 78065143 / Confirmed Somatic dysfunction of cervical region / SNOMED CT 6544558460 / Confirmed Somatic dysfunction of thoracic region / SNOMED CT 6590025141 / Confirmed Somatic dysfunction of lumbar region / SNOMED CT 7222751997 / Confirmed Somatic dysfunction of sacral spine / SNOMED CT 5148747378 / Confirmed Somatic dysfunction of lower extremities / SNOMED CT 4244586610 / Confirmed Somatic dysfunction of rib cage region / SNOMED CT 1116273558 / Confirmed Somatic dysfunction of abdominal region / SNOMED CT 2739712541 / Confirmed Severe obstructive sleep apnea / SNOMED CT 158664341 / Confirmed Insomnia / SNOMED CT 887861754 / Confirmed S/P knee replacement / SNOMED CT 570711038 / Confirmed Mild cognitive impairment / SNOMED CT 5834223908 / Confirmed noted in 04/24/2023 Neurology Consult Note page 1. added per OP CDI policy. Memory loss / SNOMED CT 02206989 / Confirmed noted in 04/24/2023 Neurology Consult Note page 1. added per OP CDI policy. Stage 3a chronic kidney disease (CKD) / SNOMED CT 2826476596 / Confirmed added per 06/26/2023 query response. Major depressive disorder, recurrent, mild / SNOMED CT 246058716 / Confirmed added per 06/26/2023 query response. Chronic respiratory failure with hypoxia / SNOMED CT 0399492391 / Confirmed added per 06/26/2023 query response. 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 UTI (urinary tract infection) / SNOMED CT 245421885 / Confirmed Chronic constipation / SNOMED CT 746796745 / Confirmed Chronic low back pain / SNOMED CT 247883116 / Confirmed Spasm of lumbar paraspinous muscle / SNOMED CT 2441844615 / Confirmed Abdominal weakness / SNOMED CT 696283494 / Confirmed Stooped posture / SNOMED CT 86897999 / Confirmed Resolved: Stroke / SNOMED CT 246129491 left arm is weaker then right Resolved: Cervical radiculopathy / SNOMED CT 869044321 Resolved: Leg edema / SNOMED CT 108167622 Resolved: Urinary urgency / SNOMED CT 499754269 Resolved: History of UTI / SNOMED CT 6413982732 Resolved: Frequent urination / SNOMED CT 471670129 Resolved: WINTERS (dyspnea on exertion) / SNOMED CT 649832449 Resolved: Rib pain on right side / SNOMED CT 507298804 Resolved: Dizziness / SNOMED CT 0103726343 Resolved: Exposure to second hand smoke / SNOMED CT 09035124 Resolved: Bronchitis with bronchospasm / SNOMED CT 89664006 Resolved: Pain in back / SNOMED CT 308524158 Resolved: Hernia of abdominal wall / SNOMED CT 699336195 Resolved: Abdominal pain, generalized / SNOMED CT 446095480 Resolved: 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 / SNOMED CT 4769164833 Resolved: Right hip pain / SNOMED CT 39331021 Resolved: Body mass index (BMI) of 31.0-31.9 in adult / SNOMED CT 831881147 Resolved: Screening mammogram, encounter for / SNOMED CT 301499711 Resolved: Abnormal urinalysis / SNOMED CT 2545347111 Resolved: Chest pain / SNOMED CT 17016494 Canceled: GERD (gastroesophageal reflux disease) / SNOMED CT 4409289575 Canceled: HTN (hypertension) / SNOMED CT 2110785087 Canceled: Restless leg syndrome / SNOMED CT 1706915259 Canceled: At risk for falls / SNOMED CT 521388886 Problem added when Risk for Falls Careplan was initiated. Resolved due to patient discharge. Canceled: At risk for impaired skin integrity / SNOMED CT 742413570 Problem added based on documenting Adilson score less than or equal to 18, rash, or malnutrition. Resolved due to patient discharge. Canceled: Atypical chest pain / SNOMED CT 068578071 Canceled: Depression / SNOMED CT 44188030 Canceled: Restless leg syndrome / IMO 70996 Canceled: COPD exacerbation / SNOMED CT 360272834 Canceled: Urge incontinence / SNOMED CT 329030518 Canceled: Microscopic hematuria / SNOMED CT 454159219 Canceled: Other post-traumatic urethral stricture, female / SNOMED CT 389749372 Canceled: Flaccid bladder / SNOMED CT 8305022765 Canceled: Nocturia / SNOMED CT 823431005 Canceled: Chronic kidney disease / SNOMED CT 5646802082 Canceled: Other problems related to lifestyle / SNOMED CT 840260024 Canceled: Flank pain / SNOMED CT 415263857 Canceled: Overactive bladder due to prolapse of female genital organ / SNOMED CT 1879920271 Canceled: BMI 30.0-30.9,adult / SNOMED CT 975824990 Canceled: Stress incontinence / SNOMED CT 040934629 Canceled: Overactive bladder / SNOMED CT 1317829942 Canceled: Class 1 obesity due to excess calories in adult / SNOMED CT 3232333469 Canceled: Body mass index 32.0-32.9, adult / SNOMED CT 536771919 Canceled: Frequency of urination / SNOMED CT 628259432 Canceled: Urgency of urination / SNOMED CT 943387551 Canceled: Hypertension with heart disease / SNOMED CT 4763984930 Canceled: Hypertensive heart disease / OMED CT 819560875 Canceled: Community acquired pneumonia / OMED CT 1925176726 Canceled: Abdominal pain, RLQ / SNOMED CT 668856300 Canceled: Spigelian hernia / OMED CT 578312960 Canceled: Severe obesity (BMI 35.0-35.9 with comorbidity) / SNOMED CT 2555405491 Canceled: BMI 32.0-32.9,adult / SNOMED CT 272332259 Canceled: BMI 35.0-35.9,adult / SNOMED CT 743135577 Canceled: Dietary counseling / SNOMED CT 415494893 Canceled: Urgency of urination / SNOMED CT 892019207 Canceled: ESBL E. coli carrier / SNOMED CT 0660385774 ESBL E coli in urine 11/08/2020 Possible ESBL + urine 03/20/2021. Escherichia coli Canceled: Pain in thoracic spine / SNOMED CT 299665964 Canceled: Viral URI / SNOMED CT 518209818 Canceled: Body mass index 34.0-34.9, adult / SNOMED CT 897919620 Canceled: COPD with acute exacerbation / SNOMED CT 188644261 Canceled: BMI 31.0-31.9,adult / SNOMED CT 733049337 Canceled: COPD with chronic bronchitis / SNOMED CT 407989945 Canceled: Oral thrush / SNOMED CT 496856140 Canceled: Somatic dysfunction of occipitocervical region / SNOMED CT 8597887253 Canceled: Mild recurrent major depression / SNOMED CT 035210816 Canceled: Adjustment reaction / SNOMED CT 62224417 Canceled: Acute low back pain with sciatica / SNOMED CT 193668460 Canceled: Anxiety with depression / SNOMED CT 597377439 noted in 04/24/2023 Neurology Consult Note page 1. added per OP CDI policy. Objective Vital Signs 12/04/2023 11:13 EDT Peripheral Pulse Rate 87 bpm Respiratory Rate 16 br/min Systolic Blood Pressure 117 mmHg Diastolic Blood Pressure 74 mmHg Mean Arterial Pressure, Cuff 88 mmHg General: Alert and oriented, No acute distress. Eye: Normal conjunctiva. HENT: Normocephalic, Normal hearing. Cardiovascular: No edema. Musculoskeletal Normal range of motion. Normal strength. 5/5 upper extremity strength Pain with internal and external rotation of the left shoulder 5/5 lower extremity strength other than bilateral hip flexion 4+ to 5 -/5 Integumentary: Warm, Dry, [place]. Neurologic: Alert, Oriented. Psychiatric: Cooperative, Appropriate mood & affect. 14 point review of systems was negative unless otherwise noted. Results Review * Final Report * Reason For Exam M54.16 POWERSCRIBE REPORT IMPRESSION: DEGENERATIVE CHANGES OF THE LUMBAR SPINE DETAILED. EXAM: MRI of the lumbar spine without contrast History: Low back pain and right hip pain. Technique: Multiplanar multisequence MRI of the lumbar spine was obtained without intravenous contrast. Comparison: Lumbar spine radiographs 07/07/2022 Findings: Localizer images demonstrate cervical spine degenerative changes that are incompletely evaluated on this examination. The conus medullaris ends normally. Levocurvature centered at the thoracolumbar junction. The vertebral body heights are well maintained. There is no aggressive bone marrow signal abnormality. Disc desiccation throughout the lumbar spine. Moderate intervertebral disc height loss at L1-L2 and mild intervertebral disc height loss at L3-L4, L4-L5, and L5- S1. L1-L2: 3 mm of retrolisthesis of L1 on L2. Small disc bulge. Mild facet arthropathy. No neuroforaminal or spinal canal stenosis. L2-L3: Small disc bulge. Mild facet arthropathy. Mild left neuroforaminal stenosis. No spinal canal stenosis. L3-L4: Small disc bulge. Moderate facet arthropathy. Ligamentum flavum thickening. Mild spinal canal stenosis. No neuroforaminal stenosis. L4-L5: Anterolisthesis of L4 on L5 of approximately 4 mm secondary to advanced facet arthropathy. Small disc bulge with superimposed central disc protrusion. Severe spinal canal stenosis. No neuroforaminal stenosis. L5-S1: Minimal anterolisthesis of L5 on S1. Small disc bulge. Moderate facet arthropathy. Mild right neuroforaminal stenosis. No spinal canal stenosis. Visualized paravertebral soft tissues appear within normal limits as visualized. A 12 mm hyperintense T2 structure of the left kidney is most likely a cyst. Ordering Provider: Marilu Cornell Signature Line FINAL REPORT Dictated: 07/15/2022 1:29 pm Dakotah Amado DO Signed (Electronic Signature): 07/15/2022 1:29 pm Signed by: Dakotah Amado DO Transcribed by: CAROLYN Technologist: DANNA Technical Comments None RAD REPORT This document has an image Result type: MRI Spine Lumbar w/o Contrast Result date: July 13, 2022 18:50 EDT Result status: Auth (Verified) Result title: MRI Spine Lumbar w/o Contrast Performed by: Dakotah Amado DO on July 15, 2022 13:29 EDT Verified by: Dakotah Amado DO on July 15, 2022 13:29 EDT Encounter info: [id number], Celio Flor, Outpatient, 07/13/2022 - 07/13/2022 Impression and Plan Patient is a 78-year-old female with a past medical history significant for sacroiliitis, lumbar stenosis, lumbar neuritis and left shoulder pain. In regards to the lumbar stenosis and lumbar neuritis patient underwent previous transforaminal epidural steroid injection with improvement. Recently, her lower back pain with right greater than left radiating leg pain as well as numbness and tingling as well as weakness has started to intensify. She underwent injection in August 2022 with significant relief. Based on her imaging findings, her pain pattern, her failure to improve with conservative treatments and thus significant response she got from the previous injection I recommended to patient a bilateral L4-5 transforaminal epidural steroid injection under fluoroscopy for both diagnostic and therapeutic purposes. Procedure was discussed. Risk and benefits were discussed. Patient is agreeable. She will follow-up 2 weeks after the injection for reevaluation. In regards to her left shoulder pain we discussed a left shoulder x-ray, enrolling in a physical therapy program for some home exercises and Voltaren gel. A prescription will be written for this. We discussed the possibility of future left shoulder injection but I would recommend conservative treatments first. She will trial these. Follow-up as well mention. LILI score:51% Result Comment: Electronical ly Signed By: Aneta JOHNSON, Marilu\.br\Date and Time Signed: 12/04/23 11:49 EDT POPULATION HEALTH Observed: 11/24/2023 3:42 PM Status: F Source: [facility] Case Information Case Priority: None Programs: -- Referral Source: Mine Engineer Referral Reason: Disease management Case Type: Chronic Care Management Risk Score: -- Case Status: Active (January 03, 2019) Date Assigned: December 19, 2018 Assigned By: Brice Stephenson RN Date Enrolled: January 03, 2019 Assigned Primary Personnel: Dereck Rosario RN Assigned Secondary Personnel: Linda Wing RN Case Physician: Dakotah Gallardo DO Problems Ongoing Abdominal weakness 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 Bilateral hearing loss Chronic constipation Chronic low back pain Chronic respiratory failure with hypoxia Constipation DDD (degenerative disc disease), cervical Dependent for [...] sacral spine Somatic dysfunction of thoracic region Spasm of lumbar paraspinous muscle Stage 3a chronic kidney disease (CKD) Stooped posture Thoracic aorta atherosclerosis Tremor UTI (urinary tract infection) Wears hearing aid in both ears Historical Abdominal pain, generalized Abnormal urinalysis Body mass index (BMI) of 31.0-31.9 in adult Bronchitis with bronchospasm Cervical radiculopathy Chest pain Dizziness WINTERS (dyspnea on exertion) Exposure to second hand smoke Frequent urination Hernia of abdominal wall History of UTI Leg edema Pain in back 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 Rib pain on right side Right hip pain Screening mammogram, encounter for Urinary urgency Procedure/Surgical History Injection of nerve root of sacral spine [...] callus, mole removal, Tubal ligation. Home Medications acetaminophen-oxycodone 325 mg-5 mg Tab, 1 tab(s), Oral, BID amLODIPine 5 mg Tab, 5 mg= 1 tab(s), Oral, Daily, 4 refills cyclobenzaprine 5 mg Tab, 5 mg= 1 tab(s), Oral, Bedtime, 12 refills Dulcolax Tab-EC, 2-3 tabs, Oral, Daily gabapentin 300 mg Cap, 300 mg= 1 cap(s), Oral, TID, 11 refills Handicap Placard, See Instructions Maxzide-25 oral tablet, 1 tab(s), Oral, Daily, 4 refills Misc DME Prescription, See Instructions nebulizer supplies, See Instructions, 11 refills omeprazole 20 mg Cap-DR, 20 mg= 1 cap(s), Oral, Daily, 4 refills triamcinolone Top 0.1% Crm 15 gram, 1 elva, Topical, BID, 11 refills Tylenol, 500 mg, Oral, q6hr Allergies Chocolate (Anaphylaxis) Adhesive Bandage (Itching, Rash) [...] Previous treatment: None. Household tobacco concerns: No., 11/24/2023 Family History Alcoholism: Father. Metastatic cancer: Mother. Parkinson disease: Father. Parkinson's disease: Father. Primary malignant neoplasm of colon: Mother. Screenings and Assessments 01/03/19 12:08:00 Result Name Value Comment Phone Call Monitoring Consent Agreed to continue call Phone Verification Patient Information Full name, street address and date of verified CM Program Enrollment Written consent completed 01/03/19 12:00:00 Result Name Value Comment HIPPA Verified Type of Contact In person in the office Information Given by Patient CM Preferred Spoken Language Com[place]an CM Preferred Written Language Swiss Preferred Communication Mode Verbal Ability to Read/Write Able to read, Able to write Preferred Method of Contact Cell Best Time to Visit or Contact 10-1 pm, 1-5 pm Best Day to Visit or Contact No preference Preferred Way to Send Patient Engagement Systems Standard mail Lives In Single level home Number in Household 3 Lives with handicapped brother and daughter. 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 Start Date: 2018 Target: - - Status: - - Barriers: - - Comments: - - Intervention Frequency Status Credit Or Loans Officer Use inhaler as prescribed by PCP - - Done - - Start Water aerobic exercises beginning 01/08/19 2 days per week to include water walking - - Done - - Use nebulizer machine as needed for SOB for COPD. - - Progressing - - 10/12/21 Fill Rx for Rescue pack and call CN if starts medications - - Done - - Goal: Will have improvement in lower leg swelling Start Date: 2020 Target: - - Status: - - Barriers: - - Comments: - - Intervention Frequency Status Credit Or Loans Officer Decrease sodium intake to 2000 mg daily, do not use salt shaker. - - Progressing - - Weigh daily, record and notify CN of 3# weight gain in day or %3 over a week. - - Not done - - Keep appointment with Dr. Sifuentes on 10/13/20 at 0920 - - Done - - 06/08/21 Patient is going to try to return to water aerobics once per week, - - Not done - - Keep legs elevated when sitting - - Progressing - - Goal: Reduce frequency of Urinary Tract infections Start Date: 2021 Target: - - Status: - - Barriers: - - Comments: - - Intervention Frequency Status Credit Or Loans Officer Call office at first signs and symptoms of UTI for urinalysis. - - Progressing - - Drink 64 oz of fluids each day to stay hydrated. - - Progressing - - Go to restroom at first sign of urinary urge and not hold. - - Progressing - - See urologist as needed. - - Progressing - - Botox injections for urinary incontinence every 6 months as needed. - - Done - - Goal: Evaluate Options for hearing aids Start Date: 2018 Target: - - Status: Met Barriers: - - Comments: - - Intervention Frequency Status Credit Or Loans Officer Appointment with [facility] on 01/04/19 to discuss payment plan options for hearing aids - - Done - - Goal: Evaluate areas to have added emotional support Start Date: 2018 Target: - - Status: Met Barriers: - - Comments: - - Intervention Frequency Status Credit Or Loans Officer Discuss with PCP options to support her residual stroke symptoms including crying more frequently - - Done - - Goal: Improve pain management for hernia, generalized muscle and joint pain and paralytic diapraghm. Start Date: 2018 Target: - - Status: Met Barriers: - - Comments: - - Intervention Frequency Status Credit Or Loans Officer Start water therapy on January 08 and attend every Monday and each week - - Done - - Patient to call Chiropractor to have diapraghm put back in place as needed. - - Progressing - - Goal: Will have relief from constipation Start Date: 2019 Target: - - Status: Met Barriers: - - Comments: - - Intervention Frequency Status Credit Or Loans Officer Take OTC MiraLax 17 gm 1.5 caps BID - - Done - - Follow up with Title Supervisor as needed. - - Done - - Take Trulance 3 mg daily for constipation - - Done - - Right hernia repari surgery scheduled for 09/07/20. - - Done - - Take Ducolax 2 tab a bedtime as directed - - Done - - Progress Note CCM ? update November 2023. Patient was in office for scheduled appointment. Spoke to patient prior to office visit. Patient arrived in office at 1020. Patient in for office visit due to constipation. Patient also going to see if Dr Gallardo will prescribe her another medication for constipation due to the cost of Linzess. If this is the medication he wants her to be I will try to find a discount. Patient does not have any leg swelling at this time. She reports she does have restless leg daily. She either walks or takes ? a Percocet to leave the discomfort. She reports she has not had a UTI very a while. She reports when she is experiencing short of breath with decreased pulse ox reading, she uses her oxygen concentrator and relaxes until she is no longer short of breath and the pulse ox is reading in normal range. Patient did receive her flu shot at this office visit. Her blood pressure was 122/68 and heart rate was 76. Patient reports she does go to her local senior center and participates in the chair exercises, she does this more to spend time with friends socializing. She does like to do crafts and puzzles, but they must be larger pieces for her to work with. Patient does wish to continue with monthly CCM calls. Patient denies needs at this time. Patient will take medications as prescribed, keep appointments and continue to stay active. Patient out office; time for office visit. Visit end 1057. Spoke to patient after office visit and he discontinued this medication; do not need to look for discounts Communication Events Date: November 24, 2023 Method: In-person Type: -- Duration (min): 37 Outcome: Case discussion Contact Type: Patient Contact Name: MATEO [place] Notes: [facility] November 2023 update - see case summary note Created By: Linda Wing RN Date: November 23, 2023 Method: Phone call Type: Outbound Duration (min): 1 Outcome: Case discussion Contact Type: Patient emergency contact Contact Name: Geneva - daughter Notes: [facility] Nov 2023 - spoke to daughter - they have appt tomorrow 11/24/2023 and they will speak to me then Created By: Linda Wing RN Date: October 24, 2023 Method: Phone call Type: Outbound Duration (min): 1 Outcome: Left message-voicemail Contact Type: Patient emergency contact Contact Name: [place] Notes: [facility] Aug[place] - called for monthly follow up call - left message along with cn contact information Created By: Linda Wing RN Date: June 09, 2023 Method: Phone call Type: Outbound Duration (min): 7 Outcome: Case discussion Contact Type: academic affairs coordinator Contact Name: Dereck Rosario RN Notes: Called for [facility] CCM. See case summary note. Created By: Dereck Rosario RN Date: April 28, 2023 Method: Phone call Type: Outbound Duration (min): 3 Outcome: Case discussion Contact Type: academic affairs coordinator Contact Name: Dereck Rosario RN Notes: Called for Fe CCM. See case summary note. Created By: Dereck Rosario RN Date: April 05, 2023 Method: Phone call Type: Outbound Duration (min): 15 Outcome: Case discussion Contact Type: academic affairs coordinator Contact Name: Dereck Rosario RN Notes: Called for [facility] CCM. See case summary note. Created By: Dereck Rosario RN Date: March 08, 2023 Method: Phone call Type: Outbound Duration (min): 20 Outcome: Case discussion Contact Type: academic affairs coordinator Contact Name: Dereck Rosario RN Notes: Called for Dec CCM. See case summary note. Created By: Dereck Rosario RN Date: March 08, 2023 Method: Phone call Type: Outbound Duration (min): 1 Outcome: Left message-voicemail Contact Type: academic affairs coordinator Contact Name: Dereck Rosario RN Notes: Called for Dec CCM. Left message asking for return phone call. Created By: Dereck Rosario RN Date: January 13, 2023 Method: Phone call Type: Inbound Duration (min): 10 Outcome: Case discussion Contact Type: Patient Contact Name: MATEO [place] Notes: CCM patient called, see FT summary note. Created By: Aminata Mendieta RN Date: January 12, 2023 Method: Phone call Type: Outbound Duration (min): 10 Outcome: Case discussion Contact Type: Complex daycare managerproject manager finance Name: Aminata Mendieta RN Notes: Called patient for CCM follow-up, spoke with daughter see FT summary note. Created By: Aminata Mendieta RN Date: November 23, 2022 Method: Phone call Type: Outbound Duration (min): 1 Outcome: Left message-voicemail Contact Type: Complex daycare managerproject manager finance Name: Aminata Mendieta RN Notes: Attempted to call daughter cell phone for CCM follow-up, no answer, left message asking for a return call. Created By: Aminata Mendieta RN Date: November 23, 2022 Method: Phone call Type: Outbound Duration (min): 1 Outcome: Left message-voicemail Contact Type: Complex daycare managerproject manager finance Name: Aminata Mendieta RN Notes: Attempted to call patient for CCM, no answer left message asking for a return call. Created By: Aminata Mendieta RN Date: August 31, 2022 Method: Phone call Type: Outbound Duration (min): 17 Outcome: Case discussion Contact Type: Pharmacist Contact Name: Nelli Dhillon PharmD Notes: Medication review with pharmacy. See SOAP note. Created By: Aminata Mendieta RN Date: August 23, 2022 Method: Phone call Type: Outbound Duration (min): 7 Outcome: Case discussion Contact Type: Medical facility Contact Name: Aminata Mendieta Notes: spoke with Iris from Patient expereince, please see FT summary note. Created By: Aminata Mendieta RN Date: August 23, 2022 Method: Phone call Type: Outbound Duration (min): 16 Outcome: Case discussion Contact Type: Complex daycare managerproject manager finance Name: Aminata Mendieta RN Notes: Daughter left 2 messages while CCN on vacation, returned call see FT summary note. Created By: Aminata Mendieta RN Date: August 01, 2022 Method: Phone call Type: Inbound Duration (min): 7 Outcome: Case discussion Contact Type: Patient advocate Contact Name: [place] Ny Notes: Daughterr called with updates. See FT summary note. Created By: Aminata Mendieta RN Date: July 21, 2022 Method: Phone call Type: Outbound Duration (min): 15 Outcome: Case discussion Contact Type: Complex daycare managerproject manager finance Name: Aminata Mendieta RN Notes: See FT summary note. Created By: Aminata Mendieta RN Date: July 15, 2022 Method: Phone call Type: Outbound Duration (min): 1 Outcome: Left message-voicemail Contact Type: Complex daycare managerproject manager finance Name: Aminata Mendieta RN Notes: Daughter left message at 1030 asking for a return call, called daughter, no answer, left message to call again. Patient was seen by Dr. Hernandez today in [facility]. Created By: Aminata Mendieta RN Date: June 22, 2022 Method: Phone call Type: Outbound Duration (min): 20 Outcome: Case discussion Contact Type: Complex daycare managerproject manager finance Name: Aminata Mendieta RN Notes: Daughter left message asking for a return call, called patient, spoke with daughter see FT summary note. Created By: Aminata Mendieta RN Date: May 25, 2022 Method: Phone call Type: Inbound Duration (min): 1 Outcome: Case discussion Contact Type: Patient Contact Name: MATEO [place] Notes: Daughter left message that she started Rescue pack and would like a generic refill for Dexilant, see message center note. Created By: Aminata Mendieta RN Date: May 19, 2022 Method: Phone call Type: Inbound Duration (min): 3 Outcome: Case discussion Contact Type: Patient advocate Contact Name: [place] Ny Notes: Daughter called with information for help at hand for Dexilant. see message center note. Created By: Aminata Mendieta RN Date: May 17, 2022 Method: Phone call Type: Inbound Duration (min): 22 Outcome: Case discussion Contact Type: Patient advocate Contact Name: [place] Anant Notes: Daughter [place] calls with concerns see message center note. Created By: Aminata Mendieta RN Date: May 10, 2022 Method: Phone call Type: Outbound Duration (min): 10 Outcome: Case discussion Contact Type: Complex daycare managerproject manager finance Name: Aminata Mendieta RN Notes: Daughter left message asking for a return call. Called daughter, see FT summary note. Created By: Aminata Mendieta RN Date: March 25, 2022 Method: Phone call Type: Inbound Duration (min): 10 Outcome: Case discussion Contact Type: Patient Contact Name: ANANT MATEO Todd Notes: [facility] patient calls with complaints of thrush again, see message center note. Created By: Aminata Mendieta RN Date: March 16, 2022 Method: Phone call Type: Outbound Duration (min): 5 Outcome: Case discussion Contact Type: Complex daycare managerproject manager finance Name: Aminata Mendieta RN Notes: Called daughter back regarding Prednsone prescription. See message center note. Created By: Aminata Mendieta RN Date: March 16, 2022 Method: Phone call Type: Outbound Duration (min): 1 Outcome: Case discussion Contact Type: Complex daycare managerproject manager finance Name: Juani De La Garza MA Notes: [facility] called patient about prescription for Prednisone. Created By: Aminata Mendieta RN Date: March 15, 2022 Method: Phone call Type: Outbound Duration (min): 1 Outcome: Left message-voicemail Contact Type: Complex daycare managerproject manager finance Name: Aminata Mendieta RN Notes: Left message that Pulmonology office should call tomorrow to schedule patient. Created By: Aminata Mendieta RN Date: March 15, 2022 Method: Phone call Type: Outbound Duration (min): 3 Outcome: Case discussion Contact Type: Specialist Contact Name: Aminata Mendieta RN Notes: Called Pulmonology to see about referral for patient, see message center note. Created By: Aminata Mendieta RN Date: March 04, 2022 Method: Phone call Type: Outbound Duration (min): 6 Outcome: Case discussion Contact Type: Complex daycare managerproject manager finance Name: Aminata Mendieta RN Notes: Called [facility] patient for follow-up on thrush, see FT summary note. Created By: Aminata Mendieta RN Date: February 21, 2022 Method: Phone call Type: Inbound Duration (min): 15 Outcome: Case discussion Contact Type: Patient Contact Name: MATEO [place] Notes: CCM patient called started COPD rescue pack 02/18/22. See FT summary note. Created By: Aminata Mendieta RN Date: February 15, 2022 Method: Phone call Type: Outbound Duration (min): 1 Outcome: Case discussion Contact Type: Complex daycare managerproject manager finance Name: Aminata Mendieta RN Notes: CCM patient called for follow-up and to schedule appointment, no answer, left voicemail asking for a return call. Created By: Aminata Mendieta RN Date: January 24, 2022 Method: Phone call Type: Outbound Duration (min): 11 Outcome: Case discussion Contact Type: Complex daycare managerproject manager finance Name: Aminata Mendieta RN Notes: Called CCM patient for follow-up. Created By: Aminata Mendieta RN Date: January 13, 2022 Method: In-person Type: -- Duration (min): 7 Outcome: Case discussion Contact Type: Complex daycare managerproject manager finance Name: Aminata Mendieta RN Notes: Patient in office asking for samples of Stiolto Respimat. Created By: Aminata Mendieta RN Date: January 12, 2022 Method: Phone call Type: Outbound Duration (min): 3 Outcome: Case discussion Contact Type: Complex daycare managerproject manager finance Name: Debbi Hammer Notes: See message center note. Created By: Aminata Mendieta RN Date: January 12, 2022 Method: Phone call Type: Inbound Duration (min): 6 Outcome: Case discussion Contact Type: Patient advocate Contact Name: [place] Ny Notes: Daughter called patient started COPD Rescue pack on 01/09/22, see message center note. Created By: Aminata Mendieta RN Date: December 28, 2021 Method: Phone call Type: Inbound Duration (min): 25 Outcome: Case discussion Contact Type: Patient advocate Contact Name: [place] Ny Notes: daughter called with updates and needs for medications. See message center note. Created By: Aminata Mendieta RN Date: November 30, 2021 Method: Phone call Type: Outbound Duration (min): 18 Outcome: Case discussion Contact Type: Complex daycare managerproject manager finance Name: Aminata Mendieta RN Notes: Called CCM patient for follow-up, see FT summary note. Created By: Aminata Mendieta RN Date: November 23, 2021 Method: Phone call Type: Inbound Duration (min): 5 Outcome: Case discussion Contact Type: Patient advocate Contact Name: -- Notes: Daughter called regarding patient breathing and samples of Stioloto inhaler. See FT summary note. Created By: Aminata Mendieta RN Date: November 02, 2021 Method: Phone call Type: Outbound Duration (min): 1 Outcome: Left message-voicemail Contact Type: Complex daycare managerproject manager finance Name: Aminata Mendieta RN Notes: Left message regarding samples and [employer] phone number and to call if any questions. Created By: Aminata Mendieta RN Date: November 02, 2021 Method: Phone call Type: Outbound Duration (min): 7 Outcome: Case discussion Contact Type: Complex daycare managerproject manager finance Name: -- Notes: CCM follow-up see FT summary note. Created By: Aminata Mendieta RN Date: October 13, 2021 Method: Phone call Type: Outbound Duration (min): 3 Outcome: Case discussion Contact Type: Complex daycare managerproject manager finance Name: Aminata Mendieta RN Notes: Called daughter and explained information regrding [employer]'s DME incontinence program. See Ft summary note. Created By: Aminata Mendieta RN Date: October 13, 2021 Method: Phone call Type: Outbound Duration (min): 4 Outcome: Case discussion Contact Type: Vendor Contact Name: Enzo Notes: Called [facility] to see if there was any coverage for incontinence supplies. Medicare does nort cover but they have incontinence program. See FT summary note. Created By: Aminata Mendieta RN Date: October 13, 2021 Method: Phone call Type: Outbound Duration (min): 10 Outcome: Case discussion Contact Type: Complex daycare managerproject manager finance Name: Aminata Mendieta RN Notes: Called CCM patient to confirm cancellation of appointment and schedule to establish with Dr. Gallardo Created By: Aminata Mendieta RN Date: September 30, 2021 Method: Phone call Type: Outbound Duration (min): 4 Outcome: Case discussion Contact Type: Complex daycare managerproject manager finance Name: Aminata Mendieta RN Notes: Called CCM patient for follow-up after leaving ED AMA yesterday. See message center note. Created By: Aminata Mendieta RN Date: September 29, 2021 Method: Phone call Type: Inbound Duration (min): 6 Outcome: Case discussion Contact Type: Patient advocate Contact Name: [place] Ny Notes: Patient daughter called patient having chest pain, see message center note. Created By: Aminata Mendieta RN Date: September 23, 2021 Method: Phone call Type: Outbound Duration (min): 6 Outcome: Case discussion Contact Type: Complex daycare managerproject manager finance Name: Aminata Mendieta RN Notes: Called CCM for update on cough, see message center note. Created By: Aminata Mendieta RN Date: September 21, 2021 Method: Phone call Type: Outbound Duration (min): 3 Outcome: Case discussion Contact Type: Complex daycare managerproject manager finance Name: Aminata Mendieta RN Notes: Called patient rescheduled appointment and advised to restart Mucinex and chaeck with pharmacy this afternoon for new prescriptions. See message center note. Created By: Aminata Mendieta RN Date: September 21, 2021 Method: Phone call Type: Outbound Duration (min): 3 Outcome: Case discussion Contact Type: Complex daycare managerproject manager finance Name: Aminata Mendieta RN Notes: Patient could not wait on hold for Telehealth visit. Will speak with Dr. sifuentes and call back with plan of care. Created By: Aminata Mendieta RN Date: September 21, 2021 Method: Phone call Type: Outbound Duration (min): 2 Outcome: Case discussion Contact Type: Complex daycare managerproject manager finance Name: Aminata Mendieta RN Notes: Called patient to schedule appointment per Dr. Sifuentes. See message center note. Created By: Aminata Mendieta RN Date: September 20, 2021 Method: Phone call Type: Outbound Duration (min): 2 Outcome: Case discussion Contact Type: Complex daycare managerproject manager finance Name: Aminata Mendieta RN Notes: Called daughter and explained message sent to Dr. Sifuentes and if patient symptoms worsen please take to [facility], will call with answer. Created By: Aminata Mendieta RN Date: September 20, 2021 Method: Phone call Type: Inbound Duration (min): 1 Outcome: Case discussion Contact Type: Patient advocate Contact Name: [place] Averycuso Notes: Daughter left message about productive cough, see message center note. Created By: Aminata Mendieta RN Date: September 09, 2021 Method: Phone call Type: Outbound Duration (min): 25 Outcome: Case discussion Contact Type: Complex daycare managerproject manager finance Name: Aminata Mendieta RN Notes: [facility] follow-up, see FT summary note. Created By: Aminata Mendieta RN Date: September 08, 2021 Method: Phone call Type: Outbound Duration (min): -- Outcome: No answer Contact Type: Complex daycare managerproject manager finance Name: Aminata Mendieta RN Notes: Attempted to call daughter to notify of samples available, no answer, no voicemail, Will try again. Created By: Aminata Mendieta RN Date: August 30, 2021 Method: Phone call Type: Inbound Duration (min): 4 Outcome: Case discussion Contact Type: Patient advocate Contact Name: Demetria ny Notes: See message center note regarding samples of Stiolto Created By: Aminata Mendieta RN Date: August 05, 2021 Method: Phone call Type: Outbound Duration (min): 10 Outcome: Case discussion Contact Type: Complex daycare managerproject manager finance Name: Aminata Mendieta RN Notes: [facility] follow-up, see FT summary note. Created By: Aminata Mendieta RN Date: July 28, 2021 Method: Phone call Type: Outbound Duration (min): 5 Outcome: Case discussion Contact Type: Complex daycare managerproject manager finance Name: Aminata Mendieta RN Notes: Called daughter back, see message center note. Created By: Aminata Mendieta RN Date: July 28, 2021 Method: Phone call Type: Inbound Duration (min): 1 Outcome: Case discussion Contact Type: Patient advocate Contact Name: [place] Ny Notes: Daughter left message asking for a return call. Created By: Aminata Mendieta RN Date: July 19, 2021 Method: Phone call Type: Outbound Duration (min): 5 Outcome: Case discussion Contact Type: Complex daycare managerproject manager finance Name: Aminata Mendieta RN Notes: Called [facility] patient regarding cough, see message center note. Created By: Aminata Mendieta RN Date: July 16, 2021 Method: Phone call Type: Inbound Duration (min): 11 Outcome: Case discussion Contact Type: Patient Contact Name: [place] Notes: Patient returened call with concerns, see message center note. Created By: Aminata Mendieta RN Date: July 16, 2021 Method: Phone call Type: Outbound Duration (min): -- Outcome: Left message-voicemail Contact Type: Complex daycare managerproject manager finance Name: Aminata Mendieta RN Notes: Attempted to call patint for CCM follow-up, no answer, left message asking for a return call. Created By: Aminata Mendieta RN Date: June 30, 2021 Method: Phone call Type: Outbound Duration (min): 22 Outcome: Case discussion Contact Type: Complex daycare managerproject manager finance Name: Aminata Mendieta RN Notes: CCM monthly follow-up. See FT summary note. Created By: Aminata Mendieta RN Date: June 22, 2021 Method: Phone call Type: Outbound Duration (min): 3 Outcome: Case discussion Contact Type: Complex daycare managerproject manager finance Name: Aminata Mendieta RN Notes: Called CCM patient for bi-weekly follow-up. See FT summary note. Created By: Aminata Mendieta RN Date: June 14, 2021 Method: Phone call Type: Outbound Duration (min): 1 Outcome: Left message-voicemail Contact Type: Complex daycare managerproject manager finance Name: Aminata Mendieta RN Notes: Left message explaining prescription had refill at [facility] and to call if any problems. Created By: Aminata Mendieta RN Date: June 14, 2021 Method: Phone call Type: Inbound Duration (min): 1 Outcome: Case discussion Contact Type: Patient advocate Contact Name: [place] Ny Notes: Left message asking for a refill of Albuterol and return call. Created By: Aminata Mendieta RN Date: June 08, 2021 Method: Phone call Type: Outbound Duration (min): 15 Outcome: Case discussion Contact Type: Complex daycare managerproject manager finance Name: Aminata Mendieta RN Notes: Called CCM patient for follow-up after Botox injections. See FT summary note. Created By: Aminata Mendieta RN Date: May 24, 2021 Method: Phone call Type: Inbound Duration (min): 13 Outcome: Case discussion Contact Type: Patient advocate Contact Name: [place] Ny Notes: Daughter of CCM patient called regarding a technicians and trades workers referral. SEe FT summary note. Created By: Aminata Mendieta RN Date: May 10, 2021 Method: Phone call Type: Outbound Duration (min): 5 Outcome: Case discussion Contact Type: Complex daycare managerproject manager finance Name: Aminata Mendieta RN Notes: CCm follow-up, see FT summary note. Created By: Aminata Mendieta RN Date: April 19, 2021 Method: Phone call Type: Outbound Duration (min): 1 Outcome: Case discussion Contact Type: Complex daycare managerproject manager finance Name: Aminata Mendieta RN Notes: Called daughter regrding samples of Stioloto Respimat samples. See message center note. Created By: Aminata Mendieta RN Date: April 16, 2021 Method: Phone call Type: Outbound Duration (min): 14 Outcome: Case discussion Contact Type: Complex daycare managerproject manager finance Name: Aminata Mendieta RN Notes: Called [facility] patient for follow-up, see case summary note. Created By: Aminata Mendieta RN Date: March 31, 2021 Method: Phone call Type: Outbound Duration (min): 6 Outcome: Case discussion Contact Type: Complex daycare managerproject manager finance Name: Aminata Mendieta RN Notes: CCM follow-up see summary note. Created By: Aminata Mendieta RN Date: March 24, 2021 Method: Phone call Type: Outbound Duration (min): 1 Outcome: Left message-voicemail Contact Type: Complex daycare managerproject manager finance Name: Aminata Mendieta RN Notes: Attempted to return patient call, no answer, left message. See message cente rnote. Created By: Aminata Mendieta RN Date: March 24, 2021 Method: Phone call Type: Inbound Duration (min): 1 Outcome: Case discussion Contact Type: Patient advocate Contact Name: [place] Carusoo Notes: Patient daughter left message asking for a call back regarding ATB. Created By: Aminata Mendieta RN Date: March 23, 2021 Method: Phone call Type: Outbound Duration (min): 4 Outcome: Case discussion Contact Type: Complex daycare managerproject manager finance Name: Aminata Mendieta RN Notes: Called [facility] patient for follow-up on ED visit from 03/20/21. See summary note. Created By: Aminata Mendieta RN Date: March 19, 2021 Method: Phone call Type: Outbound Duration (min): 11 Outcome: Case discussion Contact Type: Complex daycare managerproject manager finance Name: Aminata Mendieta RN Notes: Called CCM patient for follow-up. See summary note. Created By: Aminata Mendieta RN Date: March 01, 2021 Method: Phone call Type: Outbound Duration (min): 2 Outcome: Case discussion Contact Type: Complex daycare managerproject manager finance Name: Aminata Mendieta RN Notes: Called [facility] regarding inhaler samples, see messsage center note. Created By: Aminata Mendieta RN Date: February 24, 2021 Method: Phone call Type: Inbound Duration (min): 5 Outcome: Case discussion Contact Type: Patient advocate Contact Name: [place] Ny Notes: See message center note. Created By: Aminata Mendieta RN Date: February 23, 2021 Method: Phone call Type: Outbound Duration (min): 3 Outcome: Case discussion Contact Type: Complex daycare managerproject manager finance Name: Aminata Mendieta RN Notes: See message center note. Created By: Aminata Mendieta RN Date: February 22, 2021 Method: Phone call Type: Inbound Duration (min): 2 Outcome: Case discussion Contact Type: Patient advocate Contact Name: [place] Ny Notes: Daughter left detailed message see message note. Created By: Aminata Mendieta RN Date: February 22, 2021 Method: Phone call Type: Inbound Duration (min): 20 Outcome: Case discussion Contact Type: Patient advocate Contact Name: [place] Ny Notes: Patient daughter called see case summary note. Created By: Aminata Mendieta RN Date: December 31, 2020 Method: Phone call Type: Inbound Duration (min): 2 Outcome: Case discussion Contact Type: Patient advocate Contact Name: [place] Ny Notes: Daughter called asking about upcoming appointment times and dates. See message cente note. Created By: Aminata Mendieta RN Date: December 22, 2020 Method: Phone call Type: Inbound Duration (min): 2 Outcome: Case discussion Contact Type: Patient Contact Name: MATEO [place] Notes: See case summary note Created By: Aminata Mendieta RN Date: December 22, 2020 Method: Phone call Type: Outbound Duration (min): 3 Outcome: Case discussion Contact Type: Complex daycare managerproject manager finance Name: Aminata Menideta RN Notes: See message center note. Created By: Aminata Mendieta RN Date: December 22, 2020 Method: Phone call Type: Outbound Duration (min): 5 Outcome: Case discussion Contact Type: Complex daycare managerproject manager finance Name: Aminata Mendieta RN Notes: Called patient regarding messages from Dr. Sifuentes, see message center notes x 2. Created By: Aminata Mendieta RN Date: December 21, 2020 Method: Phone call Type: Outbound Duration (min): 9 Outcome: Case discussion Contact Type: Complex daycare managerproject manager finance Name: Aminata Mendieta RN Notes: See case summary note. Created By: Aminata Mendieta RN Date: December 18, 2020 Method: Phone call Type: Outbound Duration (min): 2 Outcome: Case discussion Contact Type: Patient advocate Contact Name: Dtr- Geneva Notes: CN let her know that was not in today, dtr states that she thinks pt has enough to get thorugh till Monday. CN instucted her to call on Monday if she doesn't hear from Aminata or myself. Created By: Linda Mcdonald RN Date: December 18, 2020 Method: Phone call Type: Outbound Duration (min): 1 Outcome: Case discussion Contact Type: Medical facility Contact Name: [facility] Notes: They have stiolto 5 mcg samples only, message sent to PCP; Created By: Linda Mcdonald RN Date: December 04, 2020 Method: Phone call Type: Outbound Duration (min): 4 Outcome: Case discussion Contact Type: Complex daycare managerproject manager finance Name: Aminata Mendieta RN Notes: See message center note. Created By: Aminata Mendieta RN Date: December 03, 2020 Method: Phone call Type: Inbound Duration (min): 17 Outcome: Case discussion Contact Type: Patient Contact Name: MATEO [place] Notes: [facility] patient called with concerns, see message center note. Created By: Aminata Mendieta RN Date: November 09, 2020 Method: Phone call Type: Outbound Duration (min): 12 Outcome: Case discussion Contact Type: Complex daycare managerproject manager finance Name: Aminata Mendieta RN Notes: Called [facility] patient for update from ED visit yesterday. See case summary note. Created By: Aminata Mendieta RN Date: October 22, 2020 Method: Phone call Type: Inbound Duration (min): 20 Outcome: Case discussion Contact Type: Patient Contact Name: MATEO [place] Notes: CCM call for October, see case summary note. Created By: Aminata Mendieta RN Date: October 22, 2020 Method: Phone call Type: Outbound Duration (min): -- Outcome: No answer Contact Type: Complex daycare managerproject manager finance Name: Aminata Mendieta RN Notes: Attempted to call daughter regarding sample of inhaler, no answer, voicemail full. Created By: Aminata Mendieta RN Date: October 22, 2020 Method: Phone call Type: Outbound Duration (min): -- Outcome: Left message-voicemail Contact Type: Complex daycare managerproject manager finance Name: Aminata Mendieta RN Notes: Attempted o call patint for October [facility] follow-up. No answer, left message asking ofr a return call. Created By: Aminata Mendieta RN Date: October 21, 2020 Method: Phone call Type: Inbound Duration (min): 3 Outcome: Case discussion Contact Type: Patient advocate Contact Name: [place] Ny Notes: Daughter called regarding need for Stioloto Respimt inhaler, see case summary note. Created By: Aminata Mendieta RN Date: September 22, 2020 Method: Phone call Type: Inbound Duration (min): 22 Outcome: Case discussion Contact Type: Patient Contact Name: MATEO [place] Notes: [facility] patient called with questions and concerns. See case summary note. Created By: Aminata Mendieta RN Date: September 08, 2020 Method: Phone call Type: Outbound Duration (min): 3 Outcome: Case discussion Contact Type: Complex daycare managerproject manager finance Name: Aminata Mendieta RN Notes: Called [facility] patient regarding outpatient surgery yesterdy, see case summary note. Created By: Aminata Mendieta RN Date: September 02, 2020 Method: Phone call Type: Outbound Duration (min): 19 Outcome: Case discussion Contact Type: Complex daycare managerproject manager finance Name: Aminata Mendieta RN Notes: [facility] monthly follow-up, see case summary note. Created By: Aminata Mendieta RN Date: September 02, 2020 Method: Phone call Type: Outbound Duration (min): -- Outcome: Left message-voicemail Contact Type: Complex daycare managerproject manager finance Name: Aminata Mendieta RN Notes: Patient left message on NL CN phone asking for a return call, called patient , no answer, left message asking for a return call. Created By: Aminata Mendieta RN Date: August 13, 2020 Method: Phone call Type: Outbound Duration (min): 2 Outcome: Case discussion Contact Type: Complex daycare managerproject manager finance Name: Aminata Mendieta RN Notes: Called [facility] patient regarding medication for ringworm, see message center note. Created By: Aminata Mendieta RN Date: August 11, 2020 Method: Phone call Type: Inbound Duration (min): 3 Outcome: Case discussion Contact Type: Complex daycare managerproject manager finance Name: Lexii Casper MA Notes: See message center note regarding ringworm Created By: Aminata Mendieta RN Date: July 29, 2020 Method: Phone call Type: Outbound Duration (min): 21 Outcome: Case discussion Contact Type: Complex daycare managerproject manager finance Name: Aminata Mendieta RN Notes: [facility] monthly follow-up, patient in ED yesterday. See case summary note. Created By: Aminata Mendieta RN Date: July 10, 2020 Method: Phone call Type: Outbound Duration (min): 26 Outcome: Case discussion Contact Type: Complex daycare managerproject manager finance Name: Aminata Mendieta RN Notes: [facility] monthly call. See case summary note. Created By: Aminata Mendieta RN Date: February 27, 2020 Method: Phone call Type: Outbound Duration (min): 21 Outcome: Case discussion Contact Type: academic affairs coordinator Contact Name: Aminata Mendieta RN Notes: [facility] monthly call, See case summary note. Created By: Aminata Mendieta RN Date: December 31, 2019 Method: Phone call Type: Outbound Duration (min): 2 Outcome: Case discussion Contact Type: Complex daycare managerproject manager finance Name: Aminata Mendieta RN Notes: [facility] patient notified of prescriptions sent in, see message center note. Created By: Aminata Mendieta RN Date: December 30, 2019 Method: Phone call Type: Outbound Duration (min): 22 Outcome: Case discussion Contact Type: Complex daycare managerproject manager finance Name: Aminata Mendieta RN Notes: [facility] call, see case summary note. Created By: Aminata Mendieta RN Date: December 09, 2019 Method: Phone call Type: Outbound Duration (min): 7 Outcome: Case discussion Contact Type: Complex daycare managerproject manager finance Name: Aminata Mendieta RN Notes: [facility] monthly call, see case summary note. Created By: Aminata Mendieta RN Date: November 28, 2019 Method: Phone call Type: Outbound Duration (min): 1 Outcome: Case discussion Contact Type: Complex daycare managerproject manager finance Name: Marce Teena Lefty Notes: See message center note. Created By: Aminata Mendieta RN Date: November 28, 2019 Method: Phone call Type: Inbound Duration (min): 3 Outcome: Case discussion Contact Type: Patient Contact Name: ANANT, MATEO G Notes: See message center note. Created By: Aminata Mendieta RN Date: November 13, 2019 Method: Phone call Type: Inbound Duration (min): 11 Outcome: Case discussion Contact Type: Complex daycare managerproject manager finance Name: Aminata Mendieta RN Notes: [facility] patient called with concerns, see case summary note. Created By: Aminata Mendieta RN Date: November 05, 2019 Method: Phone call Type: Outbound Duration (min): 8 Outcome: Case discussion Contact Type: Complex daycare managerproject manager finance Name: Aminata Mendieta RN Notes: [facility] call October, see case summary note. Created By: Aminata Mendieta RN Date: October 28, 2019 Method: Phone call Type: Inbound Duration (min): 2 Outcome: Case discussion Contact Type: Complex daycare managerproject manager finance Name: Blanka Swain LPN Notes: Patient returned call regarding increase in medications. see message center note. Created By: Aminata Mendieta RN Date: October 28, 2019 Method: Phone call Type: Outbound Duration (min): 3 Outcome: Case discussion Contact Type: Complex daycare managerproject manager finance Name: Moon Queen CMA Notes: Results given regarding abdominal xray and Dr. Sifuentes recommendations, see message center note. Created By: Aminata Mendieta RN Date: October 21, 2019 Method: Phone call Type: Outbound Duration (min): 8 Outcome: Case discussion Contact Type: Complex daycare managerproject manager finance Name: Aminata Mendieta RN Notes: [facility] October call. See case summary note. Created By: Aminata Mendieta RN Date: September 03, 2019 Method: Phone call Type: Outbound Duration (min): 21 Outcome: Case discussion Contact Type: Complex daycare managerproject manager finance Name: Aminata Mendieta RN Notes: [facility] monthly August call. See case summary call. Created By: Aminata Mendieta RN Date: July 30, 2019 Method: Phone call Type: Outbound Duration (min): 21 Outcome: Case discussion Contact Type: social media managerproject manager finance Name: Aminata Mendieta RN Notes: [facility] May call, see caase summary note. Created By: Aminata Mendieta RN Date: July 09, 2019 Method: Phone call Type: Outbound Duration (min): 17 Outcome: Case discussion Contact Type: academic affairs coordinator Contact Name: Aminata Mendieta RN Notes: [facility] bi-weekly call. see case summary note. Created By: Aminata Mendieta RN Date: July 08, 2019 Method: Phone call Type: Outbound Duration (min): -- Outcome: No answer Contact Type: social media managerproject manager finance Name: Aminata Mendieta RN Notes: Attempted to call patient for update on medicaations, no answer, unable to leave voicemail. Created By: Aminata Mendieta RN Date: June 18, 2019 Method: Phone call Type: Outbound Duration (min): -- Outcome: Case discussion Contact Type: social media managerproject manager finance Name: Aminata Mendieta RN Notes: Attempted to callpatietn for bi-weekly CCM call for June, no answer, left message asking for return call. Created By: Aminata Mendieta RN Date: June 04, 2019 Method: Phone call Type: Outbound Duration (min): 13 Outcome: Case discussion Contact Type: social media managerproject manager finance Name: Aminata Mendieta RN Notes: [facility] May call, see case summary note. Created By: Aminata Mendieta RN Date: June 04, 2019 Method: Phone call Type: Outbound Duration (min): 1 Outcome: Left message-voicemail Contact Type: academic affairs coordinator Contact Name: Aminata Mendieta RN Notes: [facility] May call, no answer, left message asking for return call. Created By: Aminata Mendieta RN Date: May 20, 2019 Method: Phone call Type: Outbound Duration (min): 13 Outcome: Case discussion Contact Type: social media managerproject manager finance Name: Aminata Mendieta RN Notes: CCM May call. see case summary note. Created By: Aminata Mendieta RN Date: April 26, 2019 Method: Phone call Type: Inbound Duration (min): 10 Outcome: Case discussion Contact Type: Patient Contact Name: [place] Notes: Patient called CN for CCM follow-up. See Case Summary Note. Created By: Brice Stephenson RN Date: April 16, 2019 Method: In-person Type: -- Duration (min): 22 Outcome: Case discussion Contact Type: Patient Contact Name: [place]O [place] Notes: Patient came to primary care office for assistance with medication patient assistance form. See Case Summary note. Created By: Brice Stephenson RN Date: April 16, 2019 Method: Phone call Type: Outbound Duration (min): -- Outcome: Left message-voicemail Contact Type: social media managerproject manager finance Name: Brice Stephenson RN Notes: CN attempted to call patient for CCM follow-up related to assistance with patient drug assistance paperwork completion. Message left with needed information from patient. Asked patient to return call to CN to discuss further. Created By: Brice Stephenson RN Date: April 08, 2019 Method: Phone call Type: Outbound Duration (min): 22 Outcome: Case discussion Contact Type: social media managerproject manager finance Name: Brice Stephenson RN Notes: CN returned call to patient. See Case Summary note. Created By: Brice Stephenson RN Date: April 08, 2019 Method: Phone call Type: Inbound Duration (min): -- Outcome: Case discussion Contact Type: Patient Contact Name: [place]O [place] Notes: Patient called and left message for CN requesting return call. Patient notes she has received paperwork in regards to her refill medication and needs assistance to complete paperwork from PCP office. Asking for return phone call. Created By: Brice Stephenson RN Date: April 08, 2019 Method: Phone call Type: Outbound Duration (min): -- Outcome: No answer Contact Type: social media managerproject manager finance Name: Brice Stephenson RN Notes: CN attempted to return patient's call. No answer. Patient's VM currently noted to be full and unable to leave a message at this time. Created By: Brice Stephenson RN Date: March 11, 2019 Method: Phone call Type: Outbound Duration (min): 5 Outcome: Case discussion Contact Type: social media managerproject manager finance Name: Brice Stephenson RN Notes: CN returned call to patient for CCM follow-up call. See Case Summary note. Created By: Brice Stephenson RN Date: March 10, 2019 Method: Phone call Type: Inbound Duration (min): -- Outcome: Case discussion Contact Type: Patient Contact Name: M[place]O [place] Notes: Patient called and left message on CN message system over the weekend. Reports she feels strange but states it is not an emergency. Requesting a call back. Created By: Brice Stephenson RN Date: February 27, 2019 Method: In-person Type: -- Duration (min): 4 Outcome: Case discussion Contact Type: social media managerproject manager finance Name: Brice Stephenson RN Notes: CN returned call to patient after conferring with PCP. Created By: Brice Stephenson RN Date: February 27, 2019 Method: Phone call Type: Inbound Duration (min): 7 Outcome: Case discussion Contact Type: Patient Contact Name: [place]O [place] Notes: Patient called CN about Eye appt and BP concerns, CCM follow-up. See Case Summary note. Created By: Brice Stephenson RN Date: February 20, 2019 Method: Phone call Type: Outbound Duration (min): -- Outcome: Left message-voicemail Contact Type: social media managerproject manager finance Name: Brice Stephenson RN Notes: CN attempted to call patient for CCM follow-up call. No answer. Left message asking for return phone call with patient update. Created By: Brice Stephenson RN Date: February 20, 2019 Method: Phone call Type: Inbound Duration (min): 22 Outcome: Case discussion Contact Type: Patient Contact Name: M[place]O [place] Notes: Patient returned call to CN for CCM follow-up call. See Case Summary note. Created By: Brice Stephenson RN Date: February 08, 2019 Method: Phone call Type: Outbound Duration (min): -- Outcome: Left message-voicemail Contact Type: social media managerproject manager finance Name: Brice Stephenson RN Notes: CN attempted to call patient for CCM follow-up. No answer. Left message asking for return call. Created By: Brice Stephenson RN Date: January 03, 2019 Method: Phone call Type: Outbound Duration (min): 67 Outcome: Case discussion Contact Type: social media managerproject manager finance Name: Brice Stephenson RN Notes: CN met with patient for CCM initial intake assessment. See I-view and Case Summary note. Created By: Brice Stephenson RN AMBULATORY VISIT SUMMARY Observed: 11/23 12:25 PM Status: F Source: [facility] Ambulatory Visit Summary M[place]O [place] :1945 Visit Date:11/24/2023 Ambulatory Visit Instructions Your Diagnosis Thoracic aorta atherosclerosis Somatic dysfunction of thoracic region Somatic dysfunction of lumbar region Somatic dysfunction of abdominal region Somatic dysfunction of rib cage region Chronic low back pain BMI 30.0-30.9,adult RLS (restless legs syndrome) Obesity due to excess calories Immunization due Other chronic pain Spasm of lumbar paraspinous muscle These Are Your Goals Reduce exacerbations of [...] shaker. - Progressing Keep appointment with Dr. Sifuentes on 10/13/20 at 0920 - Done Keep [...] Gallardo DO This Is Your Medications List cyclobenzaprine (cyclobenzaprine 5 mg Tab) gabapentin (gabapentin 300 mg Cap) Contact prescribing physician if questions or concerns Misc Prescription (Handicap Placard) Misc Prescription (Misc DME Prescription) Misc Prescription (nebulizer supplies) acetaminophen (Tylenol) acetaminophen-oxycodone (acetaminophen-oxycodone 325 mg-5 mg Tab) amlodipine (amLODIPine 5 mg Tab) bisacodyl (Dulcolax Tab-EC) hydrochlorothiazide-triamterene (Maxzide-25 oral tablet) omeprazole (omeprazole 20 mg Cap-DR) triamcinolone topical (triamcinolone Top 0.1% Crm 15 gram) [Image Removed: STOP]Stop taking these medications linaclotide (linaclotide 145 mcg oral capsule) Procedures Performed Injection of nerve root of [...] to do next Scheduled Follow-Up Appointments Monday 11:00 AM EDT With: Marilu Cornell PA-C Where: [facility] [place] Monday 9:40 AM EDT With: Dakotah Gallardo DO Where: [facility] [address] [place] [address]- Monday 3:30 PM EST With: Where: [facility] [address] [place] [address]- You Need to Schedule the Following Appointments Follow Up with Paulina AGUAYO, GIOVANNY Borges, PED When: Within 1 month Comments: OMT PRN - 40 min slot For constipation: I suggest adding prune juice - starting with 4 ounces daily and increasing to 6 and 8 until benefit is achieved Apple or grape are good alternatives Increase PO water/fluids - add 1-2 glasses of water to what you already consume Stool softeners have been shown to help in some patients - though evidence lacks to support them Increasing activity can help improve bowel health Increasing fiber, like metamucil, can be beneficial When all else fails, laxatives can be used When you decide that you're ready for referral, let me know and I'll place the referral to GI ------- *before relying on laxatives, increase fiber and fluid intake* Fiber (help to form stool for BM) supplements and natural foods cereal fibers have cell garrett that resist digestion and retain water in their cellular structure citrus fruit fiber can stimulate the growth of colonic mary, increasing fecal mass Wheat bran can aggravate bloating and abdominal pain in IBS Osmotic agents (draw water into the colon to help produce a BM) polyethylene glycol (8.5-34g in 8 ounces of water) lactulose 15-30mL every other day Sorbitol - 30g daily glycerin (glycerol) - 1 suppository daily magnesium sulfate - 2-4 teaspoons in 8 ounces of water; may repeat in 4 hours - max two doses a day magneisum citrate - 200mL daily Stimulant laxatives (force water into the colon to help produce a BM) Bisacodyl - 10-30mg daily or 10mg suppository daily senna - 2-4 tabs (8.6mg sennosides per tab) or 1-2 tabs (15mg sennosides per tab) as a single daily dose or BID To go instructions (for follow up): On the day of manipulation, I strongly encourage you to to drink more water to help flush your system after today's treatment Work on using your core muscles more when standing and sitting, and especially when leaning away from your centerline or when lifting things This may take some concentration and work initially but it will eventually become more natural to you Work on shoulder retraction exercises For patients who can tolerate anti-inflammatories and/or tylenol, those medications can help provide some comfort while you work on optimizing function Getting adequate rest is important for managing musculoskeletal pain F/u 1 month or PRN Where: [address] [place] [id number] Medications What How Much When Why Instructions Changed cyclobenzaprine (cyclobenzaprine 5 mg Tab) 1 Tablets By Mouth At bedtime Spasm of lumbar paraspinous muscle Pickup at [facility]/pharmacy #[id number] Changed gabapentin (gabapentin 300 mg Cap) 1 Capsules By Mouth 3 times a day RLS (restless legs syndrome) Pickup at [facility]/pharmacy #[id number] Unchanged acetaminophen (Tylenol) 500 Milligram By Mouth Every 6 hours Contact prescribing physician if questions or concerns Unchanged acetaminophen-oxycodone (acetaminophen-oxycodone 325 mg-5 mg Tab) 1 Tablets By Mouth 2 times a day Lumbar radiculopathy, right Polyneuropathy Acute low back pain with sciatica 30 day supply Contact prescribing physician if questions or concerns Unchanged amlodipine (amLODIPine 5 mg Tab) 1 Tablets By Mouth Every day Contact prescribing physician if questions or concerns Unchanged bisacodyl (Dulcolax Tab-EC) 2-3 tabs By Mouth Every day adjusts for constipation concerns Contact prescribing physician if questions or concerns Unchanged hydrochlorothiazide-triamterene (Maxzide-25 oral tablet) 1 Tablets By Mouth Every day Contact prescribing physician if questions or concerns Unchanged Misc Prescription (Handicap Placard) See instructions Expires in 5 years Contact prescribing physician if questions or concerns Unchanged Misc Prescription (Misc DME Prescription) See instructions Wheelchair Contact prescribing physician if questions or concerns Unchanged Misc Prescription (nebulizer supplies) See instructions nebulizer supplies dx J44.9 Contact prescribing physician if questions or concerns Unchanged omeprazole (omeprazole 20 mg Cap-DR) 1 Capsules By Mouth Every day Chronic GERD Contact prescribing physician if questions or concerns Unchanged triamcinolone topical (triamcinolone Top 0.1% Crm 15 gram) 1 Application Topical 2 times a day Contact prescribing physician if questions or concerns Pharmacy Information [facility]/pharmacy #[id number]: [address], [place] [phone] What How Much When Why Comments Stop Taking linaclotide (linaclotide 145 mcg oral capsule) 1 Capsules By Mouth Every day Constipation Medications and Immunizations Administered Given Fluzone High-Dose PF Prefilled Syringe , 0.5 mL, IntraMuscular. For: Immunization due influenza virus vaccine, inactivated, IntraMuscular Not Given influenza virus vaccine, inactivated, Vaccine Storage Allergies Chocolate (Anaphylaxis) Adhesive Bandage (Itching, Rash) aspirin (Nausea) iodinated radiocontrast dyes (hives, Unknown) penicillins (Itching, Rash) sulfamethoxazole (Swelling) Problems Ongoing - Any problem that you are currently receiving treatment for. 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 Abdominal pain, generalized Abnormal urinalysis Body mass index (BMI) of 31.0-31.9 in adult Bronchitis with bronchospasm Cervical radiculopathy Chest pain Dizziness WINTERS (dyspnea on exertion) Exposure to second hand smoke Frequent urination Hernia of abdominal wall History of UTI Leg edema Pain in back 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 Rib pain on right side Right hip pain Screening mammogram, encounter for Urinary urgency Patient Survey You may receive a survey via text or e-mail asking about your office visit. Please share your experience with us by completing your survey. We appreciate your feedback and thank you for choosing us for your care. AMBULATORY VISIT SUMMARY Observed: 11/23 11:47 AM Status: F Source: [facility] Ambulatory Visit Summary [place] :1945 Visit Date:11/24/2023 Ambulatory Visit Instructions Your Diagnosis Thoracic aorta atherosclerosis Somatic dysfunction of thoracic region Somatic dysfunction of lumbar region Somatic dysfunction of abdominal region Somatic dysfunction of rib cage region Chronic low back pain BMI 30.0-30.9,adult RLS (restless legs syndrome) Obesity due to excess calories Immunization due Other chronic pain Spasm of lumbar paraspinous muscle These Are Your Goals Reduce exacerbations of [...] shaker. - Progressing Keep appointment with Dr. Sifuentes on 10/13/20 at 0920 - Done Keep [...] Gallardo DO This Is Your Medications List cyclobenzaprine (cyclobenzaprine 5 mg Tab) gabapentin (gabapentin 300 mg Cap) Contact prescribing physician if questions or concerns Misc Prescription (Handicap Placard) Misc Prescription (Misc DME Prescription) Misc Prescription (nebulizer supplies) acetaminophen (Tylenol) acetaminophen-oxycodone (acetaminophen-oxycodone 325 mg-5 mg Tab) amlodipine (amLODIPine 5 mg Tab) bisacodyl (Dulcolax Tab-EC) hydrochlorothiazide-triamterene (Maxzide-25 oral tablet) omeprazole (omeprazole 20 mg Cap-DR) triamcinolone topical (triamcinolone Top 0.1% Crm 15 gram) [Image Removed: STOP]Stop taking these medications linaclotide (linaclotide 145 mcg oral capsule) Procedures Performed Injection of nerve root of [...] to do next Scheduled Follow-Up Appointments Monday 11:00 AM EDT With: Marilu Cornell PA-C Where: [facility] [place] Monday 9:40 AM EDT With: Dakotah Gallardo DO Where: [facility] [address] [place] [address]- Monday 3:30 PM EST With: Where: [facility] [address] [place] [address]- You Need to Schedule the Following Appointments Follow Up with Dakotah Gallardo DO, GIOVANNY, PED When: Within 1 month Comments: OMT PRN - 40 min slot For constipation: I suggest adding prune juice - starting with 4 ounces daily and increasing to 6 and 8 until benefit is achieved Apple or grape are good alternatives Increase PO water/fluids - add 1-2 glasses of water to what you already consume Stool softeners have been shown to help in some patients - though evidence lacks to support them Increasing activity can help improve bowel health Increasing fiber, like metamucil, can be beneficial When all else fails, laxatives can be used When you decide that you're ready for referral, let me know and I'll place the referral to GI ------- *before relying on laxatives, increase fiber and fluid intake* Fiber (help to form stool for BM) supplements and natural foods cereal fibers have cell agrrett that resist digestion and retain water in their cellular structure citrus fruit fiber can stimulate the growth of colonic mary, increasing fecal mass Wheat bran can aggravate bloating and abdominal pain in IBS Osmotic agents (draw water into the colon to help produce a BM) polyethylene glycol (8.5-34g in 8 ounces of water) lactulose 15-30mL every other day Sorbitol - 30g daily glycerin (glycerol) - 1 suppository daily magnesium sulfate - 2-4 teaspoons in 8 ounces of water; may repeat in 4 hours - max two doses a day magneisum citrate - 200mL daily Stimulant laxatives (force water into the colon to help produce a BM) Bisacodyl - 10-30mg daily or 10mg suppository daily senna - 2-4 tabs (8.6mg sennosides per tab) or 1-2 tabs (15mg sennosides per tab) as a single daily dose or BID To go instructions (for follow up): On the day of manipulation, I strongly encourage you to to drink more water to help flush your system after today's treatment Work on using your core muscles more when standing and sitting, and especially when leaning away from your centerline or when lifting things This may take some concentration and work initially but it will eventually become more natural to you Work on shoulder retraction exercises For patients who can tolerate anti-inflammatories and/or tylenol, those medications can help provide some comfort while you work on optimizing function Getting adequate rest is important for managing musculoskeletal pain F/u 1 month or PRN Where: [address] [place] [address] [phone] Medications What How Much When Why Instructions Changed cyclobenzaprine (cyclobenzaprine 5 mg Tab) 1 Tablets By Mouth At bedtime Spasm of lumbar paraspinous muscle Pickup at [facility]/pharmacy #[id number] Changed gabapentin (gabapentin 300 mg Cap) 1 Capsules By Mouth 3 times a day RLS (restless legs syndrome) Pickup at [facility]/pharmacy #[id number] Unchanged acetaminophen (Tylenol) 500 Milligram By Mouth Every 6 hours Contact prescribing physician if questions or concerns Unchanged acetaminophen-oxycodone (acetaminophen-oxycodone 325 mg-5 mg Tab) 1 Tablets By Mouth 2 times a day Lumbar radiculopathy, right Polyneuropathy Acute low back pain with sciatica 30 day supply Contact prescribing physician if questions or concerns Unchanged amlodipine (amLODIPine 5 mg Tab) 1 Tablets By Mouth Every day Contact prescribing physician if questions or concerns Unchanged bisacodyl (Dulcolax Tab-EC) 2-3 tabs By Mouth Every day adjusts for constipation concerns Contact prescribing physician if questions or concerns Unchanged hydrochlorothiazide-triamterene (Maxzide-25 oral tablet) 1 Tablets By Mouth Every day Contact prescribing physician if questions or concerns Unchanged Misc Prescription (Handicap Placard) See instructions Expires in 5 years Contact prescribing physician if questions or concerns Unchanged Misc Prescription (Misc DME Prescription) See instructions Wheelchair Contact prescribing physician if questions or concerns Unchanged Misc Prescription (nebulizer supplies) See instructions nebulizer supplies dx J44.9 Contact prescribing physician if questions or concerns Unchanged omeprazole (omeprazole 20 mg Cap-DR) 1 Capsules By Mouth Every day Chronic GERD Contact prescribing physician if questions or concerns Unchanged triamcinolone topical (triamcinolone Top 0.1% Crm 15 gram) 1 Application Topical 2 times a day Contact prescribing physician if questions or concerns Pharmacy Information [facility]/pharmacy #[id number]: [address], [place] [id number] [phone] What How Much When Why Comments Stop Taking linaclotide (linaclotide 145 mcg oral capsule) 1 Capsules By Mouth Every day Constipation Medications and Immunizations Administered Given Fluzone High-Dose PF Prefilled Syringe , 0.5 mL, IntraMuscular. For: Immunization due influenza virus vaccine, inactivated, IntraMuscular Not Given influenza virus vaccine, inactivated, Vaccine Storage Allergies Chocolate (Anaphylaxis) Adhesive Bandage (Itching, Rash) aspirin (Nausea) iodinated radiocontrast dyes (hives, Unknown) penicillins (Itching, Rash) sulfamethoxazole (Swelling) Problems Ongoing - Any problem that you are currently receiving treatment for. 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 Abdominal pain, generalized Abnormal urinalysis Body mass index (BMI) of 31.0-31.9 in adult Bronchitis with bronchospasm Cervical radiculopathy Chest pain Dizziness WINTERS (dyspnea on exertion) Exposure to second hand smoke Frequent urination Hernia of abdominal wall History of UTI Leg edema Pain in back 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 Rib pain on right side Right hip pain Screening mammogram, encounter for Urinary urgency Patient Survey You may receive a survey via text or e-mail asking about your office visit. Please share your experience with us by completing your survey. We appreciate your feedback and thank you for choosing us for your care. FAMILY MEDICINE OFFICE/CLINI C NOTE Observed: 11/24/2023 11:14 AM Status: F Source: [facility] Medicine Office/Clini c Note HPI Staff Lower back pain constipation and OMT back Last OV AUGUST 22, 2023 20:23 Patient is here for follow up on hypertension. How often are you checking your blood pressure? no_ Denies chest pain or increased SOB, has o2 at home as needed Health Maintenance: Dexa: DUE Last Labs: 03/31/23 Med agreement: filled out today PHQ9 (D): 5 flu: given today Questions/Concerns: Here with Daughter. Constipation. Linzess is too expensive. Anything cheaper? Discussed with Shaina who is says she will call Medicare too and see about options. Last BM: two days ago, usually goes every day but takes a lot of dulcolax tablets Hard to get started, stool gets soft after awhile but at first its hard. History of Present Illness 78 Years old Female here to f/u for Neck and LOW BACK PAIN Social: The patient is a ; her passed in 1990 The patient is retired from [employer] The patient has 6 children; 5 living 18 grandchildren 1 great grand baby List of providers Pain management - Dr. Ez Fletcher Urologist - _ [facility] staff / Chief Complaint confirmed with the [...] for manipulation today. Today, the patient describes mid back pain - 6/10 left flank Low back pain is 3-4 out of 10 today as the patient sits At worst, low back pain is 7-8 out of 10 At best, low back pain is 3 out of 10 Described as dull ache along the belt line The patient describes minimal radiation down the legs today is having right sided flank pain as well initially thought it was a UTI - but those symptoms persist after finishing the antibiotic recent UTI - managed by urology 11/17/23 - requested linzess for constipation - miralax isn't helping September 2023-last appointment here Chronic constipation -conservative approach CKD - noted due to restrictions for medications to manage arthritis pain MDD improved with gabapentin COPD - recommend increasing activity f/u 3 months From last note: (tagged below) PHYSICAL EXAM Constitutional: Vital signs reviewed; this patient is well nourished, no acute distress Lungs: Clear to auscultation, non-labored respiration - expansion is symmetric Heart: Normal rate and rhythm, normal peripheral perfusion ABD: bowel sounds in all four quadrants, not tympanic - some tenderness around her hernia - mild MSK: Gait is slow shuffling gait with stooped posture SI joint is tender on the left Lumbar paraspinal muscle tight/tender bilaterally; worse on the left Core muscles are sub-optimal in tension at rest - reducible midline hernia Skin: Warm, dry Neurologic: Awake, alert and oriented Psychiatric: Cooperative, appropriate mood and affect, judgement is appropriate Osteopathic Manipulation Thoracic Spine: Chronic and acute tissue texture changes of the trapezius, rhomboid on the left - treated with myofascial, BLT and FPR - with objective and subjective improvement Lumbar Spine: Lumbar paraspinal restriction on the right - treated with myofascial, BLT and FPR - with objective and subjective improvement Rib: exhalation dysfunction of rib 7 on the left - treated with rib raising and BLT - with objective and subjective improvement Abdomen: Diaphragm restriction bilat - worse on the right - treated with inhibition to the diaphragm - with objective and subjective improvement PLAN: [...] worsening symptoms of fever, chills, night sweats. 3. Spasm of lumbar paraspinous muscle (M62.830), Spasm of thoracic paraspinal muscle (M62.830), Cervical paraspinal muscle spasm (M62.838) Acute on chronic Likely contributing to the above Etiology is likely a combination of sub-optimal mechanics, muscle imbalance, posture vs other Discussed with the patient today about the importance of optimizing function and mechanics Emphasis placed on improving posture and trunk strength, stability Improved with OMM F/u 1 month 4. Spasm of the trapezius muscle (M62.838) Acute on chronic Likely contributing to the above Etiology is likely a combination of sub-optimal mechanics, muscle imbalance, posture vs other Recommend that the patient work on postural exercises Improved with OMM today F/u 1 month or PRN 5. Abdominal weakness (R19.8) Acute on chronic Sub-optimal Likely playing a role in the patient's low back pain - as weak core muscles lead to overuse of posterior erector muscle groups and hip flexors for postural stability Given instructions on how to begin engaging core muscles - supine with knees bent Discussed how this will help with trunk stability and share the work with her other erector muscles f/u 1 month 6. Hip flexor tightness (M24.559) Chronic Sub-optimal control Likely stemming from sub-optimal mechanics Discussed how underuse of abdominal muscles to provide trunk stability can lead to an overreliance on hip flexors, hamstrings and lumbar paraspinals which can lead to increase/ worsening of low back pain And if the patient has DDD, arthritis etc, can aggravate those symptoms as well See #5 Trunk stability exercises reviewed today Address abdominal weakness F/u 1 month or PRN 7. Poor posture (R29.3) Acute on chronic Likely contributes to above Work on core strength exercises reviewed today Explained how this will help offload the work down by the lumbar erectors and help reduce the strain the patient feels in the low back region Discussed how to work on this between appts Discussed on this can play a role in straining the muscles of the cervical spine and can contribute to headaches as well Work on postural exercises F/u 1 month or PRN 10. Arthritis (M19.9) Chronic Sub-optimal control; stable Room for improvement Discussed the rationale for NSAIDs and tylenol PRN in managing symptoms *avoid NSAIDS in patients who have contraindications Discussed the rationale for PRN meds vs scheduled vs maximal dosing per recs Topical vs oral meds discussed Discussed the rational for PT; deferred today ---- i would really like this patient to engage with PT F/u PRN 13. Somatic dysfunction of the Thoracic Spine (M99.02) Manipulation described as above Provided with permission by the patient The patient tolerated manipulation well and the procedure went as planned without incident Range of motion and function have improved with objective improvement of signs and subjective improvement of symptoms Patient to follow-up in 3-4 weeks for additional manipulation if needed (or sooner PRN) Discussed the importance of postural exercises - see above and instructions below 14. Somatic dysfunction of the Lumbar Spine (M99.03) see OMM portion for more details Total time spent TODAY preparing the chart, face to face with the patient and family and time spent documenting, reviewing, and ordering tests was 30 mins. Time spent with manipulation was over and above the noted 30 minutes. Patient was counseled on the above diagnosis and treatment, all questions were answered and patient agrees to adhere to the plan above. Risk and benefits of appropriate procedures and medications were reviewed as well with patient, who voiced understanding and agreement. Patient was counseled on smoking cessation and/or continuing to abstain from nicotine/tobacco products as appropriate based on history; as smoking/nicotine can contribute to increased pain overall and decreased wound healing. Patient counseled on maintaining a healthy BMI as part of the total treatment of their pain and to reduce stress/strain on joints. Patient invited to return or call with any questions or concerns that arise. from last note: 9. Chronic constipation (K59.09: Other constipation) Chronic Sub-optimal control Unclear etiology Dietary vs behavioral vs other Discussed how the large intestine regulates water and forms stool Discussed how the average [place] diet can lead to constipation I suggest adding prune juice - starting with 4 ounces daily and increasing to 6 and 8 until benefit is achieved Increase PO water/fluids Stool softeners have been shown to help in some patients - dulcolax has been less effective for her lately so she's using milk of magnesia with some improvement Increasing activity can help improve bowel health f/u 1 month [1] increased constipation lately left flank pain urologist ordered a CT abdomen pelvis completed at [facility] yesterday reports hx of appendectomy in her twenties she later had adhesions which lead to bowel obstruction it makes me worried when this pain happens, that I might need another surgery... i don't want another surgery [2] 9. Chronic constipation (K59.09: Other constipation) Chronic Sub-optimal control Unclear etiology Dietary vs behavioral vs other Discussed how the large intestine regulates water and forms stool Discussed how the average [place] diet can lead to constipation I suggest adding prune juice - starting with 4 ounces daily and increasing to 6 and 8 until benefit is achieved Increase PO water/fluids Stool softeners have been shown to help in some patients - dulcolax has been less effective for her lately so she's using milk of magnesia with some improvement Increasing activity can help improve bowel health f/u 1 month [3] Assessment/Plan 1. Thoracic aorta atherosclerosis (I70.0: Atherosclerosis of aorta) new diagnosis incidental finding on imaging known cerebrovascular disease intolerant to statins focus on optimizing lifestyle 2. Somatic dysfunction of thoracic region (M99.02: Segmental and somatic dysfunction of thoracic region) 3. Somatic dysfunction of lumbar region (M99.03: Segmental and somatic dysfunction of lumbar region) 4. Somatic dysfunction of abdominal region (M99.09: Segmental and somatic dysfunction of abdomen and other regions) 5. Somatic dysfunction of rib cage region (M99.08: Segmental and somatic dysfunction of rib cage) 6. Chronic low back pain (M54.50: Low back pain, unspecified) Chronic. Stable Multifactorial etiology Medication does seem to provide ample benefit Does get benefit from OMT Given her vascular hx, NSAIDs are not an option Gabapentin has been beneficial Will taking oxycodone sparingly - at most twice a day when things are bad But she'll often take one or skip a whole day when she's feeling better Discussed the importance of optimizing mechanics Discussed the rationale of manipulation in the future F/u 1 month or PRN *Patient denies any symptoms of progressively worsening upper/lower extremity weakness, progressively worsening gait abnormality, new onset bowel/bladder incontinence/ urinary retention, or saddle anesthesia. No new or worsening symptoms of fever, chills, night sweats. 7. BMI 30.0-30.9,adult (Z68.30: Body mass index [BMI] 30.0-30.9, adult) 8. RLS (restless legs syndrome) (G25.81: Restless legs syndrome) Chronic Stable On appropriate medication with adequate results but room for improvement increase gabapentin to 300mg TID F/u PRN Ordered: gabapentin, 300 mg = 1 cap(s), Oral, TID, # 90 cap(s), Refills(s) 11, Pharmacy: [facility]/pharmacy #[id number], 168, cm, 08/22/23 8:56:00 EDT, Height/Length Dosing, 85.5, kg, 08/22/23 8:55:00 EDT, Weight Dosing 9. Obesity due to excess calories (E66.09: Other obesity due to excess calories) recommend weight loss 10. Immunization due (Z23: Encounter for immunization) Ordered: influenza virus vaccine, inactivated, 0.5 mL, Susp-Inj, IntraMuscular, Once, Stop date 11/24/23 11:00:00 EDT, Routine, Start date 11/24/23 11:00:00 EDT Admin flu virus vaccine [id number] Other chronic pain (G89.29: Other chronic pain) Spasm of lumbar paraspinous muscle (M62.830: Muscle spasm of back) Ordered: cyclobenzaprine, 5 mg = 1 tab(s), Oral, Bedtime, # 30 tab(s), Refills(s) 12, Pharmacy: [facility]/pharmacy #[id number], 168, cm, 08/22/23 8:56:00 EDT, Height/Length Dosing, 85.5, kg, 08/22/23 8:55:00 EDT, Weight Dosing Constipation Chronic Sub-optimal control Multifactorial etiology Dietary vs behavioral vs other Since last discussed, the patient has made MINIMAL changes to their diet / fluid intake Again, discussed how the large intestine regulates water and forms stool Prune juice has NOT REALLY helped; again, discussed how 4 ounces daily and increasing to 6 and 8 until benefit is achieved Encouraged to increase PO water/fluids Stool softeners have LIMITED data that they help but some patients perceive a benefit Again, discussed how increasing step count daily can help with the mechanical aspect of digestion and improve bowel health f/u PRN *before relying on laxatives, increase fiber and fluid intake* Follow-up With When Contact Information Dakotah Gallardo DO, GIOVANNY, PED Within 1 month [address] [place] [address] [phone] Additional Instructions: OMT PRN - 40 min slot For constipation: I suggest adding prune juice - starting with 4 ounces daily and increasing to 6 and 8 until benefit is achieved Apple or grape are good alternatives Increase PO water/fluids - add 1-2 glasses of water to what you already consume Stool softeners have been shown to help in some patients - though evidence lacks to support them Increasing activity can help improve bowel health Increasing fiber, like metamucil, can be beneficial When all else fails, laxatives can be used When you decide that you're ready for referral, let me know and I'll place the referral to GI ------- *before relying on laxatives, increase fiber and fluid intake* Fiber (help to form stool for BM) supplements and natural foods cereal fibers have cell garrett that resist digestion and retain water in their cellular structure citrus fruit fiber can stimulate the growth of colonic mary, increasing fecal mass Wheat bran can aggravate bloating and abdominal pain in IBS Osmotic agents (draw water into the colon to help produce a BM) polyethylene glycol (8.5-34g in 8 ounces of water) lactulose 15-30mL every other day Sorbitol - 30g daily glycerin (glycerol) - 1 suppository daily magnesium sulfate - 2-4 teaspoons in 8 ounces of water; may repeat in 4 hours - max two doses a day magneisum citrate - 200mL daily Stimulant laxatives (force water into the colon to help produce a BM) Bisacodyl - 10-30mg daily or 10mg suppository daily senna - 2-4 tabs (8.6mg sennosides per tab) or 1-2 tabs (15mg sennosides per tab) as a single daily dose or BID To go instructions (for follow up): On the day of manipulation, I strongly encourage you to to drink more water to help flush your system after today's treatment Work on using your core muscles more when standing and sitting, and especially when leaning away from your centerline or when lifting things This may take some concentration and work initially but it will eventually become more natural to you Work on shoulder retraction exercises For patients who can tolerate anti-inflammatories and/or tylenol, those medications can help provide some comfort while you work on optimizing function Getting adequate rest is important for managing musculoskeletal pain F/u 1 month or PRN Problem List/Past Medical History Ongoing Abdominal weakness 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 Bilateral hearing loss Chronic constipation Chronic low back pain Chronic respiratory failure with hypoxia Constipation DDD (degenerative disc disease), cervical Dependent for [...] sacral spine Somatic dysfunction of thoracic region Spasm of lumbar paraspinous muscle Stage 3a chronic kidney disease (CKD) Stooped posture Thoracic aorta atherosclerosis Tremor UTI (urinary tract infection) Wears hearing aid in both ears Historical Abdominal pain, generalized Abnormal urinalysis Body mass index (BMI) of 31.0-31.9 in adult Bronchitis with bronchospasm Cervical radiculopathy Chest pain Dizziness WINTERS (dyspnea on exertion) Exposure to second hand smoke Frequent urination Hernia of abdominal wall History of UTI Leg edema Pain in back 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 Rib pain on right side Right hip pain Screening mammogram, encounter for Urinary urgency Procedure/Surgical History Injection of nerve root of sacral spine [...] Corns and callus, mole removal, Tubal ligation. Medications acetaminophen-oxycodone 325 mg-5 mg Tab, 1 tab(s), Oral, BID amLODIPine 5 mg Tab, 5 mg= 1 tab(s), Oral, Daily, 4 refills cyclobenzaprine 5 mg Tab, 5 mg= 1 tab(s), Oral, Bedtime, 12 refills Dulcolax Tab-EC, 2-3 tabs, Oral, Daily gabapentin 300 mg Cap, 300 mg= 1 cap(s), Oral, TID, 11 refills Handicap Placard, See Instructions Maxzide-25 oral tablet, 1 tab(s), Oral, Daily, 4 refills Misc DME Prescription, See Instructions nebulizer supplies, See Instructions, 11 refills omeprazole 20 mg Cap-DR, 20 mg= 1 cap(s), Oral, Daily, 4 refills triamcinolone Top 0.1% Crm 15 gram, 1 elva, Topical, BID, 11 refills Tylenol, 500 mg, Oral, q6hr Allergies Chocolate (Anaphylaxis) Adhesive Bandage (Itching, Rash) [...] Previous treatment: None. Household tobacco concerns: No., 11/24/2023 Family History Alcoholism: Father. Metastatic cancer: Mother. Parkinson disease: Father. Parkinson's disease: Father. Primary malignant neoplasm of colon: Mother. Immunizations Vaccine Date Status Comments influenza virus vaccine, inactivated 11/24/2023 Given influenza virus vaccine, inactivated - Not Given Vaccine Storage zoster vaccine, inactivated 05/22/2023 Recorded zoster vaccine live 02/06/2023 Recorded Zoster Recombinant [facility] zoster vaccine, inactivated 02/06/2023 Recorded influenza virus vaccine, inactivated 01/09/2023 Given Early/Late Reason: System Down SARS-CoV-2 (COVID-19) [id number] 01/18/2022 Given influenza virus vaccine, inactivated 01/18/2022 Given influenza virus vaccine, inactivated - Not Given Postpone due to refusal SARS-CoV-2 (COVID-19) mRNA BNT-162b2 vax 01/13/2021 Given influenza virus vaccine, inactivated 12/09/2020 Given SARS-CoV-2 (COVID-19) mRNA-1273 vaccine 05/18/2020 Recorded SARS-CoV-2 (COVID-19) mRNA-1273 vaccine 05/18/2020 Recorded Patrice & Patrice vaccine administered with [facility] dept ImpactSIIS scanned with date influenza virus vaccine, inactivated 12/27/2019 Given influenza virus vaccine, inactivated 12/18/2018 Given influenza virus vaccine, inactivated 01/09/2018 Recorded pneumococcal 13-valent vaccine 03/29/2017 Recorded influenza virus vaccine, inactivated 12/08/2016 Recorded influenza virus vaccine, inactivated 12/17/2015 Recorded pneumococcal 23-valent vaccine 01/21/2014 Recorded pneumococcal 23-valent vaccine 12/16/2013 Recorded pneumococcal 23-valent vaccine 01/04/2008 Recorded [1] f/u - chronic low back pain, CKD, HTN, MDD, constipation, OMT; Dakotah Gallardo DO 08/22/2023 09:57 EDT [2] f/u - chronic low back pain, CKD, HTN, MDD, constipation, OMT; Dakotah Gallardo DO 08/22/2023 09:57 EDT [3] f/u - chronic low back pain, CKD, HTN, MDD, constipation, OMT; Dakotah Gallardo DO 08/22/2023 09:57 EDT Result Comment: Electronical ly Signed By: Dakotah Gallardo DO\.br\Date and Time Signed: 11/30/23 09:07 EDT AMBULATORY VISIT SUMMARY Observed: 08/21 10:03 AM Status: F Source: [facility] [place] :1945 Visit Date:08/22/2023 Ambulatory Visit Instructions Your Diagnosis Chronic low back pain Spasm of lumbar paraspinous muscle Abdominal weakness Stooped posture Chronic respiratory failure with hypoxia Major depressive disorder, recurrent, 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 - Progressing Keep appointment with Dr. Sifuentes on 10/13/20 at 0920 - Done Keep [...] Prescription) Misc Prescription (nebulizer supplies) acetaminophen (Tylenol) acetaminophen-oxycodone (acetaminophen-oxycodone 325 mg-5 mg Tab) amlodipine (amLODIPine 5 mg Tab) bisacodyl (Dulcolax Tab-EC) cyclobenzaprine (cyclobenzaprine 5 mg Tab) gabapentin (gabapentin 100 mg Cap) hydrochlorothiazide-triamterene (Maxzide-25 oral tablet) omeprazole (omeprazole 20 mg [...] Tubal ligation. Discharge Vitals Heart Rate (Peripheral) 72 Blood Pressure 124/70 Height 168 cm Height 66 in Weight 85.5 kg Weight 188.1 lb BMI 30.29 What to do next Scheduled Follow-Up Appointments Monday 9:40 AM EDT With: Dakotah Gallardo DO Where: [facility] NOTE Observed: 08/22/2023 9:57 AM Status: F Source: [facility] Chief Complaint F/U Lower back pain HPI Staff Patient here today for OMT for LBP JOE 04/21/23 Labs 03/31/23 Patient here today stating she has left flank pain has had urine specimens done and a CT yesterday at [place]. Has completed here antibiotics. Asking if she could take cyclobenzaprine more often? History of Present Illness 78 Years old Female here to f/u for LOW BACK PAIN Social: The patient is a ; her passed in 1990 The patient is retired from [employer] The patient has 6 children; 5 living 18 grandchildren 1 great grand baby HPI staff / Chief Complaint confirmed with [...] for manipulation today. Today, the patient describes mid back pain - 6/10 left flank Low back pain is 3-4 out of 10 today as the patient sits At worst, low back pain is 7-8 out of 10 At best, low back pain is 3 out of 10 Described as dull ache along the belt line The patient describes minimal radiation down the legs increased constipation lately left flank pain urologist ordered a CT abdomen pelvis completed at [facility] yesterday reports hx of appendectomy in her twenties she later had adhesions which lead to bowel obstruction it makes me worried when this pain happens, that I might need another surgery... i don't want another surgery From last note: (tagged below) PHYSICAL EXAM Constitutional: Vital signs reviewed; this patient is well nourished, no acute distress Lungs: Clear to auscultation, non-labored respiration - expansion is symmetric Heart: Normal rate and rhythm, normal peripheral perfusion ABD: bowel sounds in all four quadrants, not tympanic - some tenderness around her hernia - mild MSK: Gait is slow shuffling gait with stooped posture, walking into the treatment room (improved posture and catrachita with ambulation after OMT) SI joint is tender on the left Lumbar paraspinal muscle tight/tender bilaterally; worse on the left Core muscles are sub-optimal in tension at rest - reducible midline hernia Skin: Warm, dry Neurologic: Awake, alert and oriented Psychiatric: Cooperative, appropriate mood and affect, judgement is appropriate Procedure documentation - Osteopathic Manipulation: Thoracic Spine: Chronic and acute tissue texture changes of the thoracic paraspinal muscles on the left - treated with myofascial, BLT and FPR - with objective and subjective improvement Lumbar Spine: Lumbar paraspinal restriction on the BILAT; worse on the left - treated with myofascial, BLT and FPR - with objective and subjective improvement Sacral: SI dysfunction on the BILAT; worse on the left - treated with BLT and FPR - with objective and subjective improvement Lower Extremity: Psoas restriction and tenderness on the left, and fibular head dysfunction and lateral gastroc restriction on the right - treated with BLT and FPR - with objective and subjective improvement PLAN: 1. Low Back pain (M54.50) Chronic. Stable Multifactorial etiology Medication does seem to provide ample benefit Does get benefit from OMT Given her vascular hx, NSAIDs are not an option Gabapentin has been beneficial Will taking oxycodone sparingly - at most twice a day when things are bad But she'll often take one or skip a whole day when she's feeling better Discussed the importance of optimizing mechanics Discussed the rationale of manipulation in the future F/u 1 month or PRN *Patient denies any symptoms of progressively worsening upper/lower extremity weakness, progressively worsening gait abnormality, new onset bowel/bladder incontinence/ urinary retention, or saddle anesthesia. No new or worsening symptoms of fever, chills, night sweats. 2. Spasm of lumbar paraspinous muscle (M62.830), Spasm of thoracic paraspinal muscle (M62.830) Acute on chronic Likely contributing to the above Etiology is likely a combination of sub-optimal mechanics, muscle imbalance, posture vs other Discussed with the patient today about the importance of optimizing function and mechanics Emphasis placed on improving posture and trunk strength, stability Improved with OMM F/u 1 month 3. Abdominal weakness (R19.8) Acute on chronic Sub-optimal Likely playing a role in the patient's low back pain - as weak core muscles lead to overuse of posterior erector muscle groups and hip flexors for postural stability Given instructions on how to begin engaging core muscles - supine with knees bent *she does have a midline diastasis recti Discussed how this will help with trunk stability and share the work with her other erector muscles f/u 1 month 4. Hip flexor tightness (M24.559) Chronic Sub-optimal control Likely stemming from sub-optimal mechanics Discussed how underuse of abdominal muscles to provide trunk stability can lead to an overreliance on hip flexors, hamstrings and lumbar paraspinals which can lead to increase/ worsening of low back pain And if the patient has DDD, arthritis etc, can aggravate those symptoms as well See #3 Trunk stability exercises reviewed today Address abdominal weakness F/u 1 month or PRN 5. Poor posture (R29.3) Acute on chronic Likely contributes to above Work on core strength exercises reviewed today Explained how this will help offload the work down by the lumbar erectors and help reduce the strain the patient feels in the low back region Discussed how to work on this between appts Discussed on this can play a role in straining the muscles of the cervical spine and can contribute to headaches as well Work on postural exercises *she did leave walking more upright and more comfortable with ambulation F/u 1 month or PRN 7. 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 Somatic dysfunction of the Lumbar Spine [...] 30 minutes. Patient was counseled on the above diagnosis and treatment, all questions were answered and patient agrees to adhere to the plan above. Risk and benefits of appropriate procedures and medications were reviewed as well with patient, who voiced understanding and agreement. Patient was counseled on smoking cessation and/or continuing to abstain from nicotine/tobacco products as appropriate based on history; as smoking/nicotine can contribute to increased pain overall and decreased wound healing. Patient counseled on maintaining a healthy BMI as part of the total treatment of their pain and to reduce stress/strain on joints. Patient invited to return or call with any questions or concerns that arise. from last note: Review of Systems PHQ Score Initial Depression Screen Score: 0 SCORE Physical Exam Vitals & Measurements HR: 72(Peripheral) BP: 124/70 SpO2: 90% HT: 66 in HT: 168 cm WT: 85.5 kg WT: 188.1 lb BMI: 30.29 Assessment/Plan 1. Chronic low back pain (M54.50: Low back pain, unspecified) 2. Spasm of lumbar paraspinous muscle (M62.830: Muscle spasm of back) 3. Abdominal weakness (R19.8: Other specified symptoms and signs involving the digestive system and abdomen) 4. Stooped posture (R29.3: Abnormal posture) 5. Chronic respiratory failure with hypoxia (J96.11: Chronic respiratory failure with hypoxia) at baseline asymptomatic would benefit from more activity encouraged a membership at the gym 6. Major depressive disorder, recurrent, mild (F33.0: Major depressive disorder, recurrent, mild) Chronic Stable Improved with gabapentin No changes today F/u PRN 7. 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 Stage 3a chronic kidney disease (CKD) (N18.31: Chronic kidney disease, stage 3a) labs last drawn in March - stable no changes on the appropriate meds notes today as it relates to medication options for managing arthritis pain 9. Chronic constipation (K59.09: Other constipation) Chronic Sub-optimal control Unclear etiology Dietary vs behavioral vs other Discussed how the large intestine regulates water and forms stool Discussed how the average [place] diet can lead to constipation I suggest adding prune juice - starting with 4 ounces daily and increasing to 6 and 8 until benefit is achieved Increase PO water/fluids Stool softeners have been shown to help in some patients - dulcolax has been less effective for her lately so she's using milk of magnesia with some improvement Increasing activity can help improve bowel health f/u 1 month 10. Somatic dysfunction of lower extremities (M99.06: Segmental and somatic dysfunction of lower extremity) 11. Somatic dysfunction of sacral spine (M99.04: Segmental and somatic dysfunction of sacral region) 12. Somatic dysfunction of lumbar region (M99.03: Segmental and somatic dysfunction of lumbar region) 13. Somatic dysfunction of thoracic region (M99.02: Segmental and somatic dysfunction of thoracic region) 14. Somatic dysfunction of abdominal region (M99.09: Segmental and somatic dysfunction of abdomen and other regions) Adult BMI 30.0-30.9 kg/sq m (Z68.30: Body mass index [BMI] 30.0-30.9, adult) Ordered: Body Mass Index (BMI) documented 3008F Current tobacco non-user 1036F Depression Screening Negative 3352F Fall Risk Screen 2 or more w/injury 1100F Influenza immunization administered or previously received 4274F Most recent diastolic blood pressure <80 mm Hg 3078F Systolic BP <130 mm Hg (Most Recent) 3074F Follow-up No qualifying data available Problem List/Past Medical History Ongoing Abdominal weakness 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 Medications acetaminophen-oxycodone 325 mg-5 mg Tab, 1 tab(s), Oral, BID amLODIPine 5 mg Tab, 5 mg= 1 tab(s), Oral, Daily, 4 refills cyclobenzaprine 5 mg Tab, 5 mg= 1 tab(s), Oral, Bedtime, 2 refills Dulcolax Tab-EC, 2-3 tabs, Oral, Daily gabapentin 100 mg Cap, 200 mg= 2 cap(s), Oral, TID, 11 refills Handicap Placard, See Instructions Maxzide-25 oral tablet, 1 tab(s), Oral, Daily, 4 refills Misc DME Prescription, See Instructions nebulizer supplies, See Instructions, 11 refills omeprazole 20 mg Cap-DR, 20 mg= 1 cap(s), Oral, Daily, 4 refills triamcinolone Top 0.1% Crm 15 gram, 1 elva, Topical, BID, 11 refills Tylenol, 500 mg, Oral, q6hr Allergies Chocolate (Anaphylaxis) Adhesive Bandage (Itching, Rash) [...] Previous treatment: None. Household tobacco concerns: No., 08/22/2023 Family History Alcoholism: Father. Metastatic cancer: Mother. Parkinson disease: Father. Parkinson's disease: Father. Primary malignant neoplasm of colon: Mother. Immunizations Vaccine Date Status Comments zoster vaccine, inactivated 05/22/2023 Recorded zoster vaccine live 02/06/2023 Recorded Zoster Recombinant [facility] zoster vaccine, inactivated 02/06/2023 Recorded influenza virus vaccine, inactivated 01/09/2023 Given Early/Late Reason: System Down SARS-CoV-2 (COVID-19) [id number] 01/18/2022 Given influenza virus vaccine, inactivated 01/18/2022 Given influenza virus vaccine, inactivated - Not Given Postpone due to refusal SARS-CoV-2 (COVID-19) mRNA BNT-162b2 vax 01/13/2021 Given influenza virus vaccine, inactivated 12/09/2020 Given SARS-CoV-2 (COVID-19) mRNA-1273 vaccine 05/18/2020 Recorded SARS-CoV-2 (COVID-19) mRNA-1273 vaccine 05/18/2020 Recorded [facility] Pat[facility] with date influenza virus vaccine, inactivated 12/27/2019 Given influenza virus vaccine, inactivated 12/18/2018 Given influenza virus vaccine, inactivated 01/09/2018 Recorded pneumococcal 13-valent vaccine 03/29/2017 Recorded influenza virus vaccine, inactivated 12/08/2016 Recorded influenza virus vaccine, inactivated 12/17/2015 Recorded pneumococcal 23-valent vaccine 01/21/2014 Recorded pneumococcal 23-valent vaccine 12/16/2013 Recorded pneumococcal 23-valent vaccine 01/04/2008 Recorded Result Comment: Electronical ly Signed By: Dakotah Gallardo DO\Date and Time Signed: 08/22/23 20:23 EDT RAD - CT REPORT Observed: 08/21/2023 1:39 PM Status: F Source: [facility] [id number]#1.00TIFF RAD - CT REPORT Observed: 08/21/2023 11:45 AM Status: F Source: [facility] [id number]#1.00TIFF LAB REPORTS Observed: 08/14/2023 1:39 PM Status: F Source: [facility] [id number] LAB REPORTS Observed: 08/14/2023 1:39 PM Status: F Source: [facility] [id number]#1.00TIFF LAB REPORTS Observed: 07/29/2023 1:39 PM Status: F Source: [facility] [id number] LAB REPORTS Observed: 07/29/2023 1:39 PM Status: F Source: [facility] [id number]#1.00TIFF CONSULTATION NOTE Observed: 07/04/2023 11:45 AM Status: F Source: [facility] [id number]#1.00TIFF POPULATION HEALTH Observed: 06/09/2023 3:26 PM Status: F Source: [facility] Case Information Case Priority: None Programs: -- Referral Source: Mine Engineer Referral Reason: Disease management Case Type: Chronic Care Management Risk Score: -- Case Status: Active (January 03, 2019) Date Assigned: December 19, 2018 Assigned By: Brice Stephenson RN Date Enrolled: January 03, 2019 Assigned Primary Personnel: Abraham VILLALPANDO, Dereck Perez Assigned Secondary Personnel: -- Case Physician: Dakotah [...] callus, mole removal, Tubal ligation. Home Medications acetaminophen-oxycodone 325 mg-5 mg Tab, 1 tab(s), Oral, BID albuterol HFA 90 mcg/inh MDI, 2 puff(s), Inhalation, q4hr, PRN, 11 refills, Not taking albuterol-ipratropium Inh Lizzeth 3 mL UD, 3 mL, [...] Phone Call Monitoring Consent Agreed to continue call Phone Verification Patient Information Full name, street address and date of verified Program Enrollment Written consent completed 01/03/19 12:00:00 Result Name Value Comment HIPPA Verified Type of Contact In person in the office Information Given by Patient CM Preferred Spoken Language Comoran CM Preferred Written Language Swiss Preferred Communication Mode Verbal Ability to Read/Write Able to read, Able to write Preferred Method of Contact Cell Best Time to Visit or Contact 10-1 pm, 1-5 pm Best Day to Visit or Contact No preference Preferred Way to Send PHI Standard mail Lives In Single level home Number in Household 3 Lives with handicapped brother and daughter. 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 Start Date: 2018 Target: - - Status: - - Barriers: - - Comments: - - Intervention Frequency Status Credit Or Loans Officer Use inhaler as prescribed by PCP - - Done - - Start Water aerobic exercises beginning 01/08/19 2 days per week to include water walking - - Done - - Use nebulizer machine as needed for SOB for COPD. - - Progressing - - 10/12/21 Fill Rx for Rescue pack and call CN if starts medications - - Done - - Goal: Will have improvement in lower leg swelling Start Date: 2020 Target: - - Status: - - Barriers: - - Comments: - - Intervention Frequency Status Credit Or Loans Officer Decrease sodium intake to 2000 mg daily, do not use salt shaker. - - Progressing - - Weigh daily, record and notify CN of 3# weight gain in day or %3 over a week. - - Not done - - Keep appointment with Dr. Sifuentes on 10/13/20 at 0920 - - Done - - 06/08/21 Patient is going to try to return to water aerobics once per week, - - Not done - - Keep legs elevated when sitting - - Progressing - - Goal: Reduce frequency of Urinary Tract infections Start Date: 2021 Target: - - Status: - - Barriers: - - Comments: - - Intervention Frequency Status Credit Or Loans Officer Call office at first signs and symptoms of UTI for urinalysis. - - Progressing - - Drink 64 oz of fluids each day to stay hydrated. - - Progressing - - Go to restroom at first sign of urinary urge and not hold. - - Progressing - - See urologist as needed. - - Progressing - - Botox injections for urinary incontinence every 6 months as needed. - - Done - - Goal: Evaluate Options for hearing aids Start Date: 2018 Target: - - Status: Met Barriers: - - Comments: - - Intervention Frequency Status Credit Or Loans Officer Appointment with [facility] on 01/04/19 to discuss payment plan options for hearing aids - - Done - - Goal: Evaluate areas to have added emotional support Start Date: 2018 Target: - - Status: Met Barriers: - - Comments: - - Intervention Frequency Status Credit Or Loans Officer Discuss with PCP options to support her residual stroke symptoms including crying more frequently - - Done - - Goal: Improve pain management for hernia, generalized muscle and joint pain and paralytic diapraghm. Start Date: 2018 Target: - - Status: Met Barriers: - - Comments: - - Intervention Frequency Status Credit Or Loans Officer Start water therapy on January 08 and attend every Monday and each week - - Done - - Patient to call Chiropractor to have diapraghm put back in place as needed. - - Progressing - - Goal: Will have relief from constipation Start Date: 2019 Target: - - Status: Met Barriers: - - Comments: - - Intervention Frequency Status Credit Or Loans Officer Take OTC MiraLax 17 gm 1.5 caps BID - - Done - - Follow up with Title Supervisor as needed. - - Done - - Take Trulance 3 mg daily for constipation - - Done - - Right hernia repari surgery scheduled for 09/07/20. - - Done - - Take Ducolax 2 tab a bedtime as directed - - Done - - Progress Note 06/09/23. 7 minutes. 1522. CN contacted patients daughter for May CCM. She reports her mother is doing well. She reports her mothers knee is still giving her trouble. She reports they will be getting an injection from pain management July 03. She reports they plan to stay on top of this more and try to get every 3 months. She denies any concerns at this time.[id number]. Communication Events Date: June 09, 2023 Method: Phone call Type: Outbound Duration (min): 7 Outcome: Case discussion Contact Type: academic affairs coordinator Contact Name: Dereck Rosario RN Notes: Called for [facility] CCM. See case summary note. Created By: Dereck Rosario RN Date: April 28, 2023 Method: Phone call Type: Outbound Duration (min): 3 Outcome: Case discussion Contact Type: academic affairs coordinator Contact Name: Dereck Rosario RN Notes: Called for CCM. See case summary note. Created By: Dereck Rosario RN Date: April 05, 2023 Method: Phone call Type: Outbound Duration (min): 15 Outcome: Case discussion Contact Type: academic affairs coordinator Contact Name: Dereck Rosario RN Notes: Called for Peña CCM. See case summary note. Created By: Dereck Rosario RN Date: March 08, 2023 Method: Phone call Type: Outbound Duration (min): 20 Outcome: Case discussion Contact Type: academic affairs coordinator Contact Name: Dereck Rosario RN Notes: Called for Dec CCM. See case summary note. Created By: Dereck Rosario RN Date: March 08, 2023 Method: Phone call Type: Outbound Duration (min): 1 Outcome: Left message-voicemail Contact Type: academic affairs coordinator Contact Name: Dereck Rosario RN Notes: Called for Dec CCM. Left message asking for return phone call. Created By: Dereck Rosario RN Date: January 13, 2023 Method: Phone call Type: Inbound Duration (min): 10 Outcome: Case discussion Contact Type: Patient Contact Name: MATEO [place] Notes: CCM patient called, see FT summary note. Created By: Aminata Mendieta RN Date: January 12, 2023 Method: Phone call Type: Outbound Duration (min): 10 Outcome: Case discussion Contact Type: Complex daycare managerproject manager finance Name: Aminata Mendieta RN Notes: Called patient for CCM follow-up, spoke with daughter see FT summary note. Created By: Aminata Mendieta RN Date: November 23, 2022 Method: Phone call Type: Outbound Duration (min): 1 Outcome: Left message-voicemail Contact Type: Complex daycare managerproject manager finance Name: Aminata Mendieta RN Notes: Attempted to call daughter cell phone for CCM follow-up, no answer, left message asking for a return call. Created By: Aminata Mendieta RN Date: November 23, 2022 Method: Phone call Type: Outbound Duration (min): 1 Outcome: Left message-voicemail Contact Type: Complex daycare managerproject manager finance Name: Aminata Mendieta RN Notes: Attempted to call patient for CCM, no answer left message asking for a return call. Created By: Aminata Mendieta RN Date: August 31, 2022 Method: Phone call Type: Outbound Duration (min): 17 Outcome: Case discussion Contact Type: Pharmacist Contact Name: Alejo Stewart Nelli Olea Notes: Medication review with pharmacy. See SOAP note. Created By: Aminata Mendieta RN Date: August 23, 2022 Method: Phone call Type: Outbound Duration (min): 7 Outcome: Case discussion Contact Type: Medical facility Contact Name: Aminata Irena Notes: spoke with Iris from Patient expereince, please see FT summary note. Created By: Aminata Mendieta RN Date: August 23, 2022 Method: Phone call Type: Outbound Duration (min): 16 Outcome: Case discussion Contact Type: Complex daycare managerproject manager finance Name: Aminata Mendieta RN Notes: Daughter left 2 messages while CCN on vacation, returned call see FT summary note. Created By: Aminata Mendieta RN Date: August 01, 2022 Method: Phone call Type: Inbound Duration (min): 7 Outcome: Case discussion Contact Type: Patient advocate Contact Name: Geneva Ny Notes: Daughterr called with updates. See FT summary note. Created By: Aminata Mendieta RN Date: July 21, 2022 Method: Phone call Type: Outbound Duration (min): 15 Outcome: Case discussion Contact Type: Complex daycare managerproject manager finance Name: Aminata Mendieta RN Notes: See FT summary note. Created By: mAinata Mendieta RN Date: July 15, 2022 Method: Phone call Type: Outbound Duration (min): 1 Outcome: Left message-voicemail Contact Type: Complex daycare managerproject manager finance Name: Aminata Mendieta RN Notes: Daughter left message at 1030 asking for a return call, called daughter, no answer, left message to call again. Patient was seen by Dr. Hernandez today in [facility]. Created By: Aminata Mendieta RN Date: June 22, 2022 Method: Phone call Type: Outbound Duration (min): 20 Outcome: Case discussion Contact Type: Complex daycare managerproject manager finance Name: Aminata Mendieta RN Notes: Daughter left message asking for a return call, called patient, spoke with daughter see FT summary note. Created By: Aminata Mendieta RN Date: May 25, 2022 Method: Phone call Type: Inbound Duration (min): 1 Outcome: Case discussion Contact Type: Patient Contact Name: MATEO [place] Notes: Daughter left message that she started Rescue pack and would like a generic refill for Dexilant, see message center note. Created By: Aminata Mendieta RN Date: May 19, 2022 Method: Phone call Type: Inbound Duration (min): 3 Outcome: Case discussion Contact Type: Patient advocate Contact Name: Geneva Ny Notes: Daughter called with information for help at hand for Dexilant. see message center note. Created By: Aminata Mendieta RN Date: May 17, 2022 Method: Phone call Type: Inbound Duration (min): 22 Outcome: Case discussion Contact Type: Patient advocate Contact Name: Geneva Ny Notes: Daughter Geneva calls with concerns see message center note. Created By: Aminata Mendieta RN Date: May 10, 2022 Method: Phone call Type: Outbound Duration (min): 10 Outcome: Case discussion Contact Type: Complex daycare managerproject manager finance Name: Aminata Mendieta RN Notes: Daughter left message asking for a return call. Called daughter, see FT summary note. Created By: Aminata Mendieta RN Date: March 25, 2022 Method: Phone call Type: Inbound Duration (min): 10 Outcome: Case discussion Contact Type: Patient Contact Name: MATEO [place] Notes: CCM patient calls with complaints of thrush again, see message center note. Created By: Aminata Mendieta RN Date: March 16, 2022 Method: Phone call Type: Outbound Duration (min): 5 Outcome: Case discussion Contact Type: Complex daycare managerproject manager finance Name: Aminata Mendieta RN Notes: Called daughter back regarding Prednsone prescription. See message center note. Created By: Aminata Mendieta RN Date: March 16, 2022 Method: Phone call Type: Outbound Duration (min): 1 Outcome: Case discussion Contact Type: Complex daycare managerproject manager finance Name: Juani De La Garza MA Notes: [facility] called patient about prescription for Prednisone. Created By: Aminata Mendieta RN Date: March 15, 2022 Method: Phone call Type: Outbound Duration (min): 1 Outcome: Left message-voicemail Contact Type: Complex daycare managerproject manager finance Name: Aminata Mendieta RN Notes: Left message that Pulmonology office should call tomorrow to schedule patient. Created By: Aminata Mendieta RN Date: March 15, 2022 Method: Phone call Type: Outbound Duration (min): 3 Outcome: Case discussion Contact Type: Specialist Contact Name: Aminata Mendieta RN Notes: Called Pulmonology to see about referral for patient, see message center note. Created By: Aminata Mendieta RN Date: March 04, 2022 Method: Phone call Type: Outbound Duration (min): 6 Outcome: Case discussion Contact Type: Complex daycare managerproject manager finance Name: Aminata Mendieta RN Notes: Called [facility] patient for follow-up on thrush, see FT summary note. Created By: Aminata Mendieta RN Date: February 21, 2022 Method: Phone call Type: Inbound Duration (min): 15 Outcome: Case discussion Contact Type: Patient Contact Name: MATEO [place] Notes: [facility] patient called started COPD rescue pack 02/18/22. See FT summary note. Created By: Aminata Mendieta RN Date: February 15, 2022 Method: Phone call Type: Outbound Duration (min): 1 Outcome: Case discussion Contact Type: Complex daycare managerproject manager finance Name: Aminata Mendieta RN Notes: [facility] patient called for follow-up and to schedule appointment, no answer, left voicemail asking for a return call. Created By: Aminata Mendieta RN Date: January 24, 2022 Method: Phone call Type: Outbound Duration (min): 11 Outcome: Case discussion Contact Type: Complex daycare managerproject manager finance Name: Aminata Mendieta RN Notes: Called [facility] patient for follow-up. Created By: Aminata Mendieta RN Date: January 13, 2022 Method: In-person Type: -- Duration (min): 7 Outcome: Case discussion Contact Type: Complex daycare managerproject manager finance Name: Aminata Mendieta RN Notes: Patient in office asking for samples of Stiolto Respimat. Created By: Aminata Mendieta RN Date: January 12, 2022 Method: Phone call Type: Outbound Duration (min): 3 Outcome: Case discussion Contact Type: Complex daycare managerproject manager finance Name: Debbi Hammer Notes: See message center note. Created By: Aminata Mendieta RN Date: January 12, 2022 Method: Phone call Type: Inbound Duration (min): 6 Outcome: Case discussion Contact Type: Patient advocate Contact Name: Geneva Ny Notes: Daughter called patient started COPD Rescue pack on 01/09/22, see message center note. Created By: Aminata Mendieta RN Date: December 28, 2021 Method: Phone call Type: Inbound Duration (min): 25 Outcome: Case discussion Contact Type: Patient advocate Contact Name: Geneva Ny Notes: daughter called with updates and needs for medications. See message center note. Created By: Aminata Mendieta RN Date: November 30, 2021 Method: Phone call Type: Outbound Duration (min): 18 Outcome: Case discussion Contact Type: Complex daycare managerproject manager finance Name: Aminata Mendieta RN Notes: Called [facility] patient for follow-up, see FT summary note. Created By: Aminata Mendieta RN Date: November 23, 2021 Method: Phone call Type: Inbound Duration (min): 5 Outcome: Case discussion Contact Type: Patient advocate Contact Name: -- Notes: Daughter called regarding patient breathing and samples of Stioloto inhaler. See FT summary note. Created By: Aminata Mendieta RN Date: November 02, 2021 Method: Phone call Type: Outbound Duration (min): 1 Outcome: Left message-voicemail Contact Type: Complex daycare managerproject manager finance Name: Aminata Mendieta RN Notes: Left message regarding samples and [facility] phone number and to call if any questions. Created By: Aminata Mendieta RN Date: November 02, 2021 Method: Phone call Type: Outbound Duration (min): 7 Outcome: Case discussion Contact Type: Complex daycare managerproject manager finance Name: -- Notes: CCM follow-up see FT summary note. Created By: Aminata Mendieta RN Date: October 13, 2021 Method: Phone call Type: Outbound Duration (min): 3 Outcome: Case discussion Contact Type: Complex daycare managerproject manager finance Name: Aminata Mendieta RN Notes: Called daughter and explained information regrding [facility] incontinence program. See Ft summary note. Created By: Aminata Mendieta RN Date: October 13, 2021 Method: Phone call Type: Outbound Duration (min): 4 Outcome: Case discussion Contact Type: Vendor Contact Name: Enzo Notes: Called [facility] to see if there was any coverage for incontinence supplies. Medicare does nort cover but they have incontinence program. See FT summary note. Created By: Aminata Mendieta RN Date: October 13, 2021 Method: Phone call Type: Outbound Duration (min): 10 Outcome: Case discussion Contact Type: Complex daycare managerproject manager finance Name: Aminata Mendieta RN Notes: Called [facility] patient to confirm cancellation of appointment and schedule to establish with Dr. Gallardo Created By: Aminata Mendieta RN Date: September 30, 2021 Method: Phone call Type: Outbound Duration (min): 4 Outcome: Case discussion Contact Type: Complex daycare managerproject manager finance Name: Aminata Mendieta RN Notes: Called [facility] patient for follow-up after leaving ED AMA yesterday. See message center note. Created By: Aminata Mendieta RN Date: September 29, 2021 Method: Phone call Type: Inbound Duration (min): 6 Outcome: Case discussion Contact Type: Patient advocate Contact Name: Geneva Ny Notes: Patient daughter called patient having chest pain, see message center note. Created By: Aminata Mendieta RN Date: September 23, 2021 Method: Phone call Type: Outbound Duration (min): 6 Outcome: Case discussion Contact Type: Complex daycare managerproject manager finance Name: Aminata Mendieta RN Notes: Called [facility] for update on cough, see message center note. Created By: Aminata Mendieta RN Date: September 21, 2021 Method: Phone call Type: Outbound Duration (min): 3 Outcome: Case discussion Contact Type: Complex daycare managerproject manager finance Name: Aminata Mendieta RN Notes: Called patient rescheduled appointment and advised to restart Mucinex and chaeck with pharmacy this afternoon for new prescriptions. See message center note. Created By: Aminata Mendieta RN Date: September 21, 2021 Method: Phone call Type: Outbound Duration (min): 3 Outcome: Case discussion Contact Type: Complex daycare managerproject manager finance Name: Aminata Mendieta RN Notes: Patient could not wait on hold for Telehealth visit. Will speak with Dr. sifuentes and call back with plan of care. Created By: Aminata Mendieta RN Date: September 21, 2021 Method: Phone call Type: Outbound Duration (min): 2 Outcome: Case discussion Contact Type: Complex daycare managerproject manager finance Name: Aminata Mendieta RN Notes: Called patient to schedule appointment per Dr. Sifuentes. See message center note. Created By: Aminata Mendieta RN Date: September 20, 2021 Method: Phone call Type: Outbound Duration (min): 2 Outcome: Case discussion Contact Type: Complex daycare managerproject manager finance Name: Aminata Mendieta RN Notes: Called daughter and explained message sent to Dr. Sifuentes and if patient symptoms worsen please take to [facility], will call with answer. Created By: Aminata Mendieta RN Date: September 20, 2021 Method: Phone call Type: Inbound Duration (min): 1 Outcome: Case discussion Contact Type: Patient advocate Contact Name: Geneva Ny Notes: Daughter left message about productive cough, see message center note. Created By: Aminata Mendieta RN Date: September 09, 2021 Method: Phone call Type: Outbound Duration (min): 25 Outcome: Case discussion Contact Type: Complex daycare managerproject manager finance Name: Aminata Mendieta RN Notes: CCM follow-up, see FT summary note. Created By: Aminata Mendieta RN Date: September 08, 2021 Method: Phone call Type: Outbound Duration (min): -- Outcome: No answer Contact Type: Complex daycare managerproject manager finance Name: Aminata Mendieta RN Notes: Attempted to call daughter to notify of samples available, no answer, no voicemail, Will try again. Created By: Aminata Mendieta RN Date: August 30, 2021 Method: Phone call Type: Inbound Duration (min): 4 Outcome: Case discussion Contact Type: Patient advocate Contact Name: Demetria ny Notes: See message center note regarding samples of Stiolto Created By: Aminata Mendieta RN Date: August 05, 2021 Method: Phone call Type: Outbound Duration (min): 10 Outcome: Case discussion Contact Type: Complex daycare managerproject manager finance Name: Aminata Mendieta RN Notes: CCM follow-up, see FT summary note. Created By: Aminata Mendieta RN Date: July 28, 2021 Method: Phone call Type: Outbound Duration (min): 5 Outcome: Case discussion Contact Type: Complex daycare managerproject manager finance Name: Aminata Mendieta RN Notes: Called daughter back, see message center note. Created By: Aminata Mendieta RN Date: July 28, 2021 Method: Phone call Type: Inbound Duration (min): 1 Outcome: Case discussion Contact Type: Patient advocate Contact Name: Geneva Carusoo Notes: Daughter left message asking for a return call. Created By: Aminata Mendieta RN Date: July 19, 2021 Method: Phone call Type: Outbound Duration (min): 5 Outcome: Case discussion Contact Type: Complex daycare managerproject manager finance Name: Aminata Mendieta RN Notes: Called CCM patient regarding cough, see message center note. Created By: Aminata Mendieta RN Date: July 16, 2021 Method: Phone call Type: Inbound Duration (min): 11 Outcome: Case discussion Contact Type: Patient Contact Name: MATEO [place] Notes: Patient returened call with concerns, see message center note. Created By: Aminata Mendieta RN Date: July 16, 2021 Method: Phone call Type: Outbound Duration (min): -- Outcome: Left message-voicemail Contact Type: Complex daycare managerproject manager finance Name: Aminata Mendieta RN Notes: Attempted to call patint for CCM follow-up, no answer, left message asking for a return call. Created By: Aminata Mendieta RN Date: June 30, 2021 Method: Phone call Type: Outbound Duration (min): 22 Outcome: Case discussion Contact Type: Complex daycare managerproject manager finance Name: Aminata Mendieta RN Notes: CCM monthly follow-up. See FT summary note. Created By: Aminata Mendieta RN Date: June 22, 2021 Method: Phone call Type: Outbound Duration (min): 3 Outcome: Case discussion Contact Type: Complex daycare managerproject manager finance Name: Aminata Mendieta RN Notes: Called CCM patient for bi-weekly follow-up. See FT summary note. Created By: Aminata Mendieta RN Date: June 14, 2021 Method: Phone call Type: Outbound Duration (min): 1 Outcome: Left message-voicemail Contact Type: Complex daycare managerproject manager finance Name: Aminata Mendieta RN Notes: Left message explaining prescription had refill at [facility] and to call if any problems. Created By: Aminata Mendieta RN Date: June 14, 2021 Method: Phone call Type: Inbound Duration (min): 1 Outcome: Case discussion Contact Type: Patient advocate Contact Name: Geneva Anant Notes: Left message asking for a refill of Albuterol and return call. Created By: Aminata Mendieta RN Date: June 08, 2021 Method: Phone call Type: Outbound Duration (min): 15 Outcome: Case discussion Contact Type: Complex daycare managerproject manager finance Name: Aminata Mendieta RN Notes: Called CCM patient for follow-up after Botox injections. See FT summary note. Created By: Aminata Mendieta RN Date: May 24, 2021 Method: Phone call Type: Inbound Duration (min): 13 Outcome: Case discussion Contact Type: Patient advocate Contact Name: Geneva Ny Notes: Daughter of CCM patient called regarding a technicians and trades workers referral. SEe FT summary note. Created By: Aminata Mendieta RN Date: May 10, 2021 Method: Phone call Type: Outbound Duration (min): 5 Outcome: Case discussion Contact Type: Complex daycare managerproject manager finance Name: Aminata Mendieta RN Notes: CCm follow-up, see FT summary note. Created By: Aminata Mendieta RN Date: April 19, 2021 Method: Phone call Type: Outbound Duration (min): 1 Outcome: Case discussion Contact Type: Complex daycare managerproject manager finance Name: Aminata Mendieta RN Notes: Called daughter regrding samples of Stioloto Respimat samples. See message center note. Created By: Aminata Mendieta RN Date: April 16, 2021 Method: Phone call Type: Outbound Duration (min): 14 Outcome: Case discussion Contact Type: Complex daycare managerproject manager finance Name: Aminata Mendieta RN Notes: Called CCM patient for follow-up, see case summary note. Created By: Aminata Mendieta RN Date: March 31, 2021 Method: Phone call Type: Outbound Duration (min): 6 Outcome: Case discussion Contact Type: Complex daycare managerproject manager finance Name: Aminata Mendieta RN Notes: CCM follow-up see summary note. Created By: Aminata Mendieta RN Date: March 24, 2021 Method: Phone call Type: Outbound Duration (min): 1 Outcome: Left message-voicemail Contact Type: Complex daycare managerproject manager finance Name: Aminata Mendieta RN Notes: Attempted to return patient call, no answer, left message. See message cente rnote. Created By: Aminata Mendieta RN Date: March 24, 2021 Method: Phone call Type: Inbound Duration (min): 1 Outcome: Case discussion Contact Type: Patient advocate Contact Name: Geneva Ny Notes: Patient daughter left message asking for a call back regarding ATB. Created By: Aminata Mendieta RN Date: March 23, 2021 Method: Phone call Type: Outbound Duration (min): 4 Outcome: Case discussion Contact Type: Complex daycare managerproject manager finance Name: Aminata Mendieta RN Notes: Called [facility] patient for follow-up on ED visit from 03/20/21. See summary note. Created By: Amianta Mendieta RN Date: March 19, 2021 Method: Phone call Type: Outbound Duration (min): 11 Outcome: Case discussion Contact Type: Complex daycare managerproject manager finance Name: Aminata Mendieta RN Notes: Called [facility] patient for follow-up. See summary note. Created By: Aminata Mendieta RN Date: March 01, 2021 Method: Phone call Type: Outbound Duration (min): 2 Outcome: Case discussion Contact Type: Complex daycare managerproject manager finance Name: Aminata Mendieta RN Notes: Called [facility] regarding inhaler samples, see messsage center note. Created By: Aminata Mendieta RN Date: February 24, 2021 Method: Phone call Type: Inbound Duration (min): 5 Outcome: Case discussion Contact Type: Patient advocate Contact Name: Geneva Ny Notes: See message center note. Created By: Aminata Mendieta RN Date: February 23, 2021 Method: Phone call Type: Outbound Duration (min): 3 Outcome: Case discussion Contact Type: Complex daycare managerproject manager finance Name: Aminata Mendieta RN Notes: See message center note. Created By: Aminata Mendieta RN Date: February 22, 2021 Method: Phone call Type: Inbound Duration (min): 2 Outcome: Case discussion Contact Type: Patient advocate Contact Name: Genevasara Carusoo Notes: Daughter left detailed message see message note. Created By: Aminata Mendieta RN Date: February 22, 2021 Method: Phone call Type: Inbound Duration (min): 20 Outcome: Case discussion Contact Type: Patient advocate Contact Name: Geneva Ny Notes: Patient daughter called see case summary note. Created By: Aminata Mendieta RN Date: December 31, 2020 Method: Phone call Type: Inbound Duration (min): 2 Outcome: Case discussion Contact Type: Patient advocate Contact Name: Geneva Ny Notes: Daughter called asking about upcoming appointment times and dates. See message cente note. Created By: Aminata Mendieta RN Date: December 22, 2020 Method: Phone call Type: Inbound Duration (min): 2 Outcome: Case discussion Contact Type: Patient Contact Name: MATEO [place] Notes: See case summary note Created By: Aminata Mendieta RN Date: December 22, 2020 Method: Phone call Type: Outbound Duration (min): 3 Outcome: Case discussion Contact Type: Complex daycare managerproject manager finance Name: Aminata Mendieta RN Notes: See message center note. Created By: Aminata Mendieta RN Date: December 22, 2020 Method: Phone call Type: Outbound Duration (min): 5 Outcome: Case discussion Contact Type: Complex daycare managerproject manager finance Name: Aminata Mendieta RN Notes: Called patient regarding messages from Dr. Sifuentes, see message center notes x 2. Created By: Aminata Mendieta RN Date: December 21, 2020 Method: Phone call Type: Outbound Duration (min): 9 Outcome: Case discussion Contact Type: Complex daycare managerproject manager finance Name: Aminata Mendieta RN Notes: See case summary note. Created By: Aminata Mendieta RN Date: December 18, 2020 Method: Phone call Type: Outbound Duration (min): 2 Outcome: Case discussion Contact Type: Patient advocate Contact Name: Dtr- [place] Notes: CN let her know that was not in today, dtr states that she thinks pt has enough to get thorugh till Monday. CN instucted her to call on Monday if she doesn't hear from Aminata or myself. Created By: Linda Mcdonald RN Date: December 18, 2020 Method: Phone call Type: Outbound Duration (min): 1 Outcome: Case discussion Contact Type: Medical facility Contact Name: [facility] Notes: They have stiolto 5 mcg samples only, message sent to PCP; Created By: Linda Mcdonald RN Date: December 04, 2020 Method: Phone call Type: Outbound Duration (min): 4 Outcome: Case discussion Contact Type: Complex daycare managerproject manager finance Name: Aminata Mendieta RN Notes: See message center note. Created By: Aminata Mendieta RN Date: December 03, 2020 Method: Phone call Type: Inbound Duration (min): 17 Outcome: Case discussion Contact Type: Patient Contact Name: ANANT MATEO Peyton Notes: [facility] patient called with concerns, see message center note. Created By: Aminata Mendieta RN Date: November 09, 2020 Method: Phone call Type: Outbound Duration (min): 12 Outcome: Case discussion Contact Type: Complex daycare managerproject manager finance Name: Aminata Mendieta RN Notes: Called [facility] patient for update from ED visit yesterday. See case summary note. Created By: Aminata Mendieta RN Date: October 22, 2020 Method: Phone call Type: Inbound Duration (min): 20 Outcome: Case discussion Contact Type: Patient Contact Name: [place]ATEO [place] Notes: CCM call for October, see case summary note. Created By: Aminata Mendieta RN Date: October 22, 2020 Method: Phone call Type: Outbound Duration (min): -- Outcome: No answer Contact Type: Complex daycare managerproject manager finance Name: Aminata Mendieta RN Notes: Attempted to call daughter regarding sample of inhaler, no answer, voicemail full. Created By: Aminata Mendieta RN Date: October 22, 2020 Method: Phone call Type: Outbound Duration (min): -- Outcome: Left message-voicemail Contact Type: Complex daycare managerproject manager finance Name: Aminata Mendieta RN Notes: Attempted o call patint for October [facility] follow-up. No answer, left message asking ofr a return call. Created By: Aminata Mendieta RN Date: October 21, 2020 Method: Phone call Type: Inbound Duration (min): 3 Outcome: Case discussion Contact Type: Patient advocate Contact Name: [place] Notes: Daughter called regarding need for Stioloto Respimt inhaler, see case summary note. Created By: Aminata Mendieta RN Date: September 22, 2020 Method: Phone call Type: Inbound Duration (min): 22 Outcome: Case discussion Contact Type: Patient Contact Name: M[place]O [place] Notes: [facility] patient called with questions and concerns. See case summary note. Created By: Aminata Mendieta RN Date: September 08, 2020 Method: Phone call Type: Outbound Duration (min): 3 Outcome: Case discussion Contact Type: Complex daycare managerproject manager finance Name: Aminata Mendieta RN Notes: Called [facility] patient regarding outpatient surgery yesterdy, see case summary note. Created By: Aminata Mendieta RN Date: September 02, 2020 Method: Phone call Type: Outbound Duration (min): 19 Outcome: Case discussion Contact Type: Complex daycare managerproject manager finance Name: Aminata Mendieta RN Notes: [facility] monthly follow-up, see case summary note. Created By: Aminata Mendieta RN Date: September 02, 2020 Method: Phone call Type: Outbound Duration (min): -- Outcome: Left message-voicemail Contact Type: Complex daycare managerproject manager finance Name: Aminata Mendieta RN Notes: Patient left message on [facility] phone asking for a return call, called patient , no answer, left message asking for a return call. Created By: Aminata Mendieta RN Date: August 13, 2020 Method: Phone call Type: Outbound Duration (min): 2 Outcome: Case discussion Contact Type: Complex daycare managerproject manager finance Name: Aminata Mendieta RN Notes: Called [facility] patient regarding medication for ringworm, see message center note. Created By: Aimnata Mendieta RN Date: August 11, 2020 Method: Phone call Type: Inbound Duration (min): 3 Outcome: Case discussion Contact Type: Complex daycare managerproject manager finance Name: Lexii Casper MA Notes: See message center note regarding ringworm Created By: Aminata Mendieta RN Date: July 29, 2020 Method: Phone call Type: Outbound Duration (min): 21 Outcome: Case discussion Contact Type: Complex daycare managerproject manager finance Name: Aminata Mendieta RN Notes: [facility] monthly follow-up, patient in ED yesterday. See case summary note. Created By: Aminata Mendieta RN Date: July 10, 2020 Method: Phone call Type: Outbound Duration (min): 26 Outcome: Case discussion Contact Type: Complex daycare managerproject manager finance Name: Aminata Mendieta RN Notes: [facility] monthly call. See case summary note. Created By: Aminata Mendieta RN Date: February 27, 2020 Method: Phone call Type: Outbound Duration (min): 21 Outcome: Case discussion Contact Type: academic affairs coordinator Contact Name: Aminata Mendieta RN Notes: [facility] monthly call, See case summary note. Created By: Aminata Mendieta RN Date: December 31, 2019 Method: Phone call Type: Outbound Duration (min): 2 Outcome: Case discussion Contact Type: Complex daycare managerproject manager finance Name: Aminata Mendieta RN Notes: [facility] patient notified of prescriptions sent in, see message center note. Created By: Aminata Mendieta RN Date: December 30, 2019 Method: Phone call Type: Outbound Duration (min): 22 Outcome: Case discussion Contact Type: Complex daycare managerproject manager finance Name: Aminata Mendieta RN Notes: CCM call, see case summary note. Created By: Aminata Mendieta RN Date: December 09, 2019 Method: Phone call Type: Outbound Duration (min): 7 Outcome: Case discussion Contact Type: Complex daycare managerproject manager finance Name: Aminata Mendieta RN Notes: [facility] monthly call, see case summary note. Created By: Aminata Mendieta RN Date: November 28, 2019 Method: Phone call Type: Outbound Duration (min): 1 Outcome: Case discussion Contact Type: Complex daycare managerproject manager finance Name: Teena Zheng Notes: See message center note. Created By: Aminata Mendieta RN Date: November 28, 2019 Method: Phone call Type: Inbound Duration (min): 3 Outcome: Case discussion Contact Type: Patient Contact Name: [place] Notes: See message center note. Created By: Aminata Mendieta RN Date: November 13, 2019 Method: Phone call Type: Inbound Duration (min): 11 Outcome: Case discussion Contact Type: Complex daycare managerproject manager finance Name: Aminata Mendieta RN Notes: [facility] patient called with concerns, see case summary note. Created By: Aminata Mendieta RN Date: November 05, 2019 Method: Phone call Type: Outbound Duration (min): 8 Outcome: Case discussion Contact Type: Complex daycare managerproject manager finance Name: Aminata Mendieta RN Notes: CCM call [place], see case summary note. Created By: Aminata Mendieta RN Date: October 28, 2019 Method: Phone call Type: Inbound Duration (min): 2 Outcome: Case discussion Contact Type: Complex daycare managerproject manager finance Name: Blanka Swain LPN Notes: Patient returned call regarding increase in medications. see message center note. Created By: Aminata Mendieta RN Date: October 28, 2019 Method: Phone call Type: Outbound Duration (min): 3 Outcome: Case discussion Contact Type: Complex daycare managerproject manager finance Name: Case Moon URIAS Notes: Results given regarding abdominal xray and Dr. Sifuentes recommendations, see message center note. Created By: Aminata Mendieta RN Date: October 21, 2019 Method: Phone call Type: Outbound Duration (min): 8 Outcome: Case discussion Contact Type: Complex daycare managerproject manager finance Name: Aminata Mendieta RN Notes: CCM October call. See case summary note. Created By: Aminaat Mendieta RN Date: September 03, 2019 Method: Phone call Type: Outbound Duration (min): 21 Outcome: Case discussion Contact Type: Complex daycare managerproject manager finance Name: Aminata Mendieta RN Notes: CCM monthly August call. See case summary call. Created By: Aminata Mendieta RN Date: July 30, 2019 Method: Phone call Type: Outbound Duration (min): 21 Outcome: Case discussion Contact Type: social media managerproject manager finance Name: Aminata Mendieta RN Notes: CCM May call, see caase summary note. Created By: Aminata Mendieta RN Date: July 09, 2019 Method: Phone call Type: Outbound Duration (min): 17 Outcome: Case discussion Contact Type: academic affairs coordinator Contact Name: Aminata Mendieta RN Notes: CCM bi-weekly call. see case summary note. Created By: Aminata Mendieta RN Date: July 08, 2019 Method: Phone call Type: Outbound Duration (min): -- Outcome: No answer Contact Type: social media managerproject manager finance Name: Aminata Mendieta RN Notes: Attempted to call patient for update on medicaations, no answer, unable to leave voicemail. Created By: Aminata Mendieta RN Date: June 18, 2019 Method: Phone call Type: Outbound Duration (min): -- Outcome: Case discussion Contact Type: social media managerproject manager finance Name: Aminata Mendieta RN Notes: Attempted to callpatietn for bi-weekly CCM call for June, no answer, left message asking for return call. Created By: Aminata Mendieta RN Date: June 04, 2019 Method: Phone call Type: Outbound Duration (min): 13 Outcome: Case discussion Contact Type: social media managerproject manager finance Name: Aminata Mendieta RN Notes: [facility] May call, see case summary note. Created By: Aminata Mendieta RN Date: June 04, 2019 Method: Phone call Type: Outbound Duration (min): 1 Outcome: Left message-voicemail Contact Type: academic affairs coordinator Contact Name: Aminata Mendieta RN Notes: [facility] May call, no answer, left message asking for return call. Created By: Aminata Mendieta RN Date: May 20, 2019 Method: Phone call Type: Outbound Duration (min): 13 Outcome: Case discussion Contact Type: social media managerproject manager finance Name: Aminata Mendieta RN Notes: [facility] May call. see case summary note. Created By: Aminata Mendieta RN Date: April 26, 2019 Method: Phone call Type: Inbound Duration (min): 10 Outcome: Case discussion Contact Type: Patient Contact Name: [place] Notes: Patient called CN for CCM follow-up. See Case Summary Note. Created By: Brice Stephenson RN Date: April 16, 2019 Method: In-person Type: -- Duration (min): 22 Outcome: Case discussion Contact Type: Patient Contact Name: [place]O [place] Notes: Patient came to primary care office for assistance with medication patient assistance form. See Case Summary note. Created By: Brice Stephenson RN Date: April 16, 2019 Method: Phone call Type: Outbound Duration (min): -- Outcome: Left message-voicemail Contact Type: social media managerproject manager finance Name: Brice Stephenson RN Notes: CN attempted to call patient for CCM follow-up related to assistance with patient drug assistance paperwork completion. Message left with needed information from patient. Asked patient to return call to CN to discuss further. Created By: Brice Stephenson RN Date: April 08, 2019 Method: Phone call Type: Outbound Duration (min): 22 Outcome: Case discussion Contact Type: social media managerproject manager finance Name: Brice Stephenson RN Notes: CN returned call to patient. See Case Summary note. Created By: Brice Stephenson RN Date: April 08, 2019 Method: Phone call Type: Inbound Duration (min): -- Outcome: Case discussion Contact Type: Patient Contact Name: [place] Notes: Patient called and left message for CN requesting return call. Patient notes she has received paperwork in regards to her refill medication and needs assistance to complete paperwork from PCP office. Asking for return phone call. Created By: Brice Stephenson RN Date: April 08, 2019 Method: Phone call Type: Outbound Duration (min): -- Outcome: No answer Contact Type: social media managerproject manager finance Name: Brice Stephenson RN Notes: CN attempted to return patient's call. No answer. Patient's VM currently noted to be full and unable to leave a message at this time. Created By: Brice Stephenson RN Date: March 11, 2019 Method: Phone call Type: Outbound Duration (min): 5 Outcome: Case discussion Contact Type: social media managerproject manager finance Name: Brice Stephenson RN Notes: CN returned call to patient for CCM follow-up call. See Case Summary note. Created By: Brice Stephenson RN Date: March 10, 2019 Method: Phone call Type: Inbound Duration (min): -- Outcome: Case discussion Contact Type: Patient Contact Name: [place] Notes: Patient called and left message on CN message system over the weekend. Reports she feels strange but states it is not an emergency. Requesting a call back. Created By: Brice Stephenson RN Date: February 27, 2019 Method: In-person Type: -- Duration (min): 4 Outcome: Case discussion Contact Type: social media managerproject manager finance Name: Brice Stephenson RN Notes: CN returned call to patient after conferring with PCP. Created By: Brice Stephenson RN Date: February 27, 2019 Method: Phone call Type: Inbound Duration (min): 7 Outcome: Case discussion Contact Type: Patient Contact Name: [place] Notes: Patient called CN about Eye appt and BP concerns, CCM follow-up. See Case Summary note. Created By: Brice Stephenson RN Date: February 20, 2019 Method: Phone call Type: Outbound Duration (min): -- Outcome: Left message-voicemail Contact Type: social media managerproject manager finance Name: Brice Stephenson RN Notes: CN attempted to call patient for CCM follow-up call. No answer. Left message asking for return phone call with patient update. Created By: Brice Stephenson RN Date: February 20, 2019 Method: Phone call Type: Inbound Duration (min): 22 Outcome: Case discussion Contact Type: Patient Contact Name: M[place]O [place] Notes: Patient returned call to CN for CCM follow-up call. See Case Summary note. Created By: Brice Stephenson RN Date: February 08, 2019 Method: Phone call Type: Outbound Duration (min): -- Outcome: Left message-voicemail Contact Type: social media managerproject manager finance Name: Brice Stephenson RN Notes: CN attempted to call patient for CCM follow-up. No answer. Left message asking for return call. Created By: Brice Stephenson RN Date: January 03, 2019 Method: Phone call Type: Outbound Duration (min): 67 Outcome: Case discussion Contact Type: social media managerproject manager finance Name: Brice Stephenson RN Notes: CN met with patient for CCM initial intake assessment. See I-view and Case Summary note. Created By: Brice Stephenson RN PLAN OF CARE - PT/OT/SPEECH Observed: 11:45 AM Status: F Source: [facility] [id number] RETAIL - CLINICAL NOTE Observed: 11:45 AM Status: F Source: [facility] [id number] DISCHARGE NOTE - PT Observed: 06/02/2023 11:45 AM Status: F Source: [facility] [id number] PLAN OF CARE - PT/OT/SPEECH Observed: 11:45 AM Status: F Source: [facility] [id number] POPULATION HEALTH Observed: 04/28/2023 2:18 PM Status: F Source: [facility] Case Information Case Priority: None Programs: -- Referral Source: Mine Engineer Referral Reason: Disease management Case Type: Chronic [...] callus, mole removal, Tubal ligation. Home Medications acetaminophen-oxycodone 325 mg-5 mg Tab, 1 tab(s), Oral, BID albuterol HFA 90 mcg/inh MDI, 2 puff(s), Inhalation, q4hr, PRN, 11 refills, Not taking albuterol-ipratropium Inh Lizzeth 3 mL UD, 3 mL, [...] Phone Call Monitoring Consent Agreed to continue call Phone Verification Patient Information Full name, street address and date of verified CM Program Enrollment Written consent completed 01/03/19 12:00:00 Result Name Value Comment HIPPA Verified Type of Contact In person in the office Information Given by Patient CM Preferred Spoken Language Comoran CM Preferred Written Language Swiss Preferred Communication Mode Verbal Ability to Read/Write Able to read, Able to write Preferred Method of Contact Cell Best Time to Visit or Contact 10-1 pm, 1-5 pm Best Day to Visit or Contact No preference Preferred Way to Send Patient Engagement Systems Standard mail Lives In Single level home Number in Household 3 Lives with handicapped brother and daughter. 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 Start Date: 2018 Target: - - Status: - - Barriers: - - Comments: - - Intervention Frequency Status Credit Or Loans Officer Use inhaler as prescribed by PCP - - Done - - Start Water aerobic exercises beginning 01/08/19 2 days per week to include water walking - - Done - - Use nebulizer machine as needed for SOB for COPD. - - Progressing - - 10/12/21 Fill Rx for Rescue pack and call CN if starts medications - - Done - - Goal: Will have improvement in lower leg swelling Start Date: 2020 Target: - - Status: - - Barriers: - - Comments: - - Intervention Frequency Status Credit Or Loans Officer Decrease sodium intake to 2000 mg daily, do not use salt shaker. - - Progressing - - Weigh daily, record and notify CN of 3# weight gain in day or %3 over a week. - - Not done - - Keep appointment with Dr. Sifuentes on 10/13/20 at 0920 - - Done - - 06/08/21 Patient is going to try to return to water aerobics once per week, - - Not done - - Keep legs elevated when sitting - - Progressing - - Goal: Reduce frequency of Urinary Tract infections Start Date: 2021 Target: - - Status: - - Barriers: - - Comments: - - Intervention Frequency Status Credit Or Loans Officer Call office at first signs and symptoms of UTI for urinalysis. - - Progressing - - Drink 64 oz of fluids each day to stay hydrated. - - Progressing - - Go to restroom at first sign of urinary urge and not hold. - - Progressing - - See urologist as needed. - - Progressing - - Botox injections for urinary incontinence every 6 months as needed. 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 Start Date: 2018 Target: - - Status: Met Barriers: - - Comments: - - Intervention Frequency Status Credit Or Loans Officer Start water therapy on January 08 and attend every Monday and each week - - Done - - Patient to call Chiropractor to have diapraghm put back in place as needed. - - Progressing - - Goal: Will have relief from constipation Start Date: 2019 Target: - - Status: Met Barriers: - - Comments: - - Intervention Frequency Status Credit Or Loans Officer Take OTC MiraLax 17 gm 1.5 caps BID - - Done - - Follow up with Title Supervisor as needed. - - Done - - Take Trulance 3 mg daily for constipation - - Done - - Right hernia repari surgery scheduled for 09/07/20. - - Done - - Take Ducolax 2 tab a bedtime as directed - - Done - - Progress Note 04/28/23. 1417. 3 minutes. CN contacted patients daughter for Feb CCM. Patients daughter reports patient is doing well. She reports patient started PT. She reports this was helpful in reducing pain. She reports patient is out of bed and moving some. She will be participating in PT twice weekly and doing exercises at home. Patients daughter denies any concerns at this time. 1420. Communication Events Date: April 28, 2023 Method: Phone call Type: Outbound Duration (min): 3 Outcome: Case discussion Contact Type: academic affairs coordinator Contact Name: Dereck Rosario RN Notes: Called for Feb CCM. See case summary note. Created By: Dereck Rosario RN Date: April 05, 2023 Method: Phone call Type: Outbound Duration (min): 15 Outcome: Case discussion Contact Type: academic affairs coordinator Contact Name: Dereck Rosario RN Notes: Called for Peña CCM. See case summary note. Created By: Dereck Rosario RN Date: March 08, 2023 Method: Phone call Type: Outbound Duration (min): 20 Outcome: Case discussion Contact Type: academic affairs coordinator Contact Name: Dereck Rosario RN Notes: Called for Dec CCM. See case summary note. Created By: Dereck Rosario RN Date: March 08, 2023 Method: Phone call Type: Outbound Duration (min): 1 Outcome: Left message-voicemail Contact Type: academic affairs coordinator Contact Name: Dereck Rosario RN Notes: Called for Dec CCM. Left message asking for return phone call. Created By: Dereck Rosario RN Date: January 13, 2023 Method: Phone call Type: Inbound Duration (min): 10 Outcome: Case discussion Contact Type: Patient Contact Name: [place] Notes: CCM patient called, see FT summary note. Created By: Aminata Mendieta RN Date: January 12, 2023 Method: Phone call Type: Outbound Duration (min): 10 Outcome: Case discussion Contact Type: Complex daycare managerproject manager finance Name: Aminata Mendieta RN Notes: Called patient for CCM follow-up, spoke with daughter see FT summary note. Created By: Aminata Mendieta RN Date: November 23, 2022 Method: Phone call Type: Outbound Duration (min): 1 Outcome: Left message-voicemail Contact Type: Complex daycare managerproject manager finance Name: Aminata Mendieta RN Notes: Attempted to call daughter cell phone for CCM follow-up, no answer, left message asking for a return call. Created By: Aminata Mendieta RN Date: November 23, 2022 Method: Phone call Type: Outbound Duration (min): 1 Outcome: Left message-voicemail Contact Type: Complex daycare managerproject manager finance Name: Aminata Mendieta RN Notes: Attempted to call patient for CCM, no answer left message asking for a return call. Created By: Aminata Mendieta RN Date: August 31, 2022 Method: Phone call Type: Outbound Duration (min): 17 Outcome: Case discussion Contact Type: Pharmacist Contact Name: Nelli Dhillon PharmD Notes: Medication review with pharmacy. See SOAP note. Created By: Aminata Mendieta RN Date: August 23, 2022 Method: Phone call Type: Outbound Duration (min): 7 Outcome: Case discussion Contact Type: Medical facility Contact Name: Aminata Mendieta Notes: spoke with Iris from Patient expereince, please see FT summary note. Created By: Aminata Mendieta RN Date: August 23, 2022 Method: Phone call Type: Outbound Duration (min): 16 Outcome: Case discussion Contact Type: Complex daycare managerproject manager finance Name: Aminata Mendieta RN Notes: Daughter left 2 messages while CCN on vacation, returned call see FT summary note. Created By: Aminata Mendieta RN Date: August 01, 2022 Method: Phone call Type: Inbound Duration (min): 7 Outcome: Case discussion Contact Type: Patient advocate Contact Name: [place] Notes: Daughterr called with updates. See FT summary note. Created By: Aminata Mendieta RN Date: July 21, 2022 Method: Phone call Type: Outbound Duration (min): 15 Outcome: Case discussion Contact Type: Complex daycare managerproject manager finance Name: Aminata Mendieta RN Notes: See FT summary note. Created By: Aminata Mendieta RN Date: July 15, 2022 Method: Phone call Type: Outbound Duration (min): 1 Outcome: Left message-voicemail Contact Type: Complex daycare managerproject manager finance Name: Aminata Mendieta RN Notes: Daughter left message at 1030 asking for a return call, called daughter, no answer, left message to call again. Patient was seen by Dr. Hernandez today in [facility]. Created By: Aminata Mendieta RN Date: June 22, 2022 Method: Phone call Type: Outbound Duration (min): 20 Outcome: Case discussion Contact Type: Complex daycare managerproject manager finance Name: Aminata Mendieta RN Notes: Daughter left message asking for a return call, called patient, spoke with daughter see FT summary note. Created By: Aminata Mendieta RN Date: May 25, 2022 Method: Phone call Type: Inbound Duration (min): 1 Outcome: Case discussion Contact Type: Patient Contact Name: MATEO [place] Notes: Daughter left message that she started Rescue pack and would like a generic refill for Dexilant, see message center note. Created By: Aminata Mendieta RN Date: May 19, 2022 Method: Phone call Type: Inbound Duration (min): 3 Outcome: Case discussion Contact Type: Patient advocate Contact Name: Geneva Ny Notes: Daughter called with information for help at hand for Dexilant. see message center note. Created By: Aminata Mendieta RN Date: May 17, 2022 Method: Phone call Type: Inbound Duration (min): 22 Outcome: Case discussion Contact Type: Patient advocate Contact Name: Geneva Ny Notes: Daughter Geneva calls with concerns see message center note. Created By: Aminata Mendieta RN Date: May 10, 2022 Method: Phone call Type: Outbound Duration (min): 10 Outcome: Case discussion Contact Type: Complex daycare managerproject manager finance Name: Aminata Mendieta RN Notes: Daughter left message asking for a return call. Called daughter, see FT summary note. Created By: Aminata Mendieta RN Date: March 25, 2022 Method: Phone call Type: Inbound Duration (min): 10 Outcome: Case discussion Contact Type: Patient Contact Name: MATEO [place] Notes: CCM patient calls with complaints of thrush again, see message center note. Created By: Aminata Mendieta RN Date: March 16, 2022 Method: Phone call Type: Outbound Duration (min): 5 Outcome: Case discussion Contact Type: Complex daycare managerproject manager finance Name: Aminata Mendieta RN Notes: Called daughter back regarding Prednsone prescription. See message center note. Created By: Aminata Mendieta RN Date: March 16, 2022 Method: Phone call Type: Outbound Duration (min): 1 Outcome: Case discussion Contact Type: Complex daycare managerproject manager finance Name: Juani De La Garza MA Notes: [facility] called patient about prescription for Prednisone. Created By: Aminata Mendieta RN Date: March 15, 2022 Method: Phone call Type: Outbound Duration (min): 1 Outcome: Left message-voicemail Contact Type: Complex daycare managerproject manager finance Name: Aminata Mendieta RN Notes: Left message that Pulmonology office should call tomorrow to schedule patient. Created By: Aminata Mendieta RN Date: March 15, 2022 Method: Phone call Type: Outbound Duration (min): 3 Outcome: Case discussion Contact Type: Specialist Contact Name: Aminata Mendieta RN Notes: Called Pulmonology to see about referral for patient, see message center note. Created By: Aminata Mendieta RN Date: March 04, 2022 Method: Phone call Type: Outbound Duration (min): 6 Outcome: Case discussion Contact Type: Complex daycare managerproject manager finance Name: Aminata Mendieta RN Notes: Called [facility] patient for follow-up on thrush, see FT summary note. Created By: Aminata Mendieta RN Date: February 21, 2022 Method: Phone call Type: Inbound Duration (min): 15 Outcome: Case discussion Contact Type: Patient Contact Name: MATEO [place] Notes: [facility] patient called started COPD rescue pack 02/18/22. See FT summary note. Created By: Aminata Mendieta RN Date: February 15, 2022 Method: Phone call Type: Outbound Duration (min): 1 Outcome: Case discussion Contact Type: Complex daycare managerproject manager finance Name: Aminata Mendieta RN Notes: CCM patient called for follow-up and to schedule appointment, no answer, left voicemail asking for a return call. Created By: Aminata Mendieta RN Date: January 24, 2022 Method: Phone call Type: Outbound Duration (min): 11 Outcome: Case discussion Contact Type: Complex daycare managerproject manager finance Name: Aminata Mendieta RN Notes: Called CCM patient for follow-up. Created By: Aminata Mendieta RN Date: January 13, 2022 Method: In-person Type: -- Duration (min): 7 Outcome: Case discussion Contact Type: Complex daycare managerproject manager finance Name: Aminata Mendieta RN Notes: Patient in office asking for samples of Stiolto Respimat. Created By: Aminata Mendieta RN Date: January 12, 2022 Method: Phone call Type: Outbound Duration (min): 3 Outcome: Case discussion Contact Type: Complex daycare managerproject manager finance Name: Debbi Hammer Notes: See message center note. Created By: Aminata Mendieta RN Date: January 12, 2022 Method: Phone call Type: Inbound Duration (min): 6 Outcome: Case discussion Contact Type: Patient advocate Contact Name: Geneva Averycuso Notes: Daughter called patient started COPD Rescue pack on 01/09/22, see message center note. Created By: Aminata Mendieta RN Date: December 28, 2021 Method: Phone call Type: Inbound Duration (min): 25 Outcome: Case discussion Contact Type: Patient advocate Contact Name: Geneva Ny Notes: daughter called with updates and needs for medications. See message center note. Created By: Aminata Mendieta RN Date: November 30, 2021 Method: Phone call Type: Outbound Duration (min): 18 Outcome: Case discussion Contact Type: Complex daycare managerproject manager finance Name: Aminata Mendieta RN Notes: Called CCM patient for follow-up, see FT summary note. Created By: Aminata Mendieta RN Date: November 23, 2021 Method: Phone call Type: Inbound Duration (min): 5 Outcome: Case discussion Contact Type: Patient advocate Contact Name: -- Notes: Daughter called regarding patient breathing and samples of Stioloto inhaler. See FT summary note. Created By: Aminata Mendieta RN Date: November 02, 2021 Method: Phone call Type: Outbound Duration (min): 1 Outcome: Left message-voicemail Contact Type: Complex daycare managerproject manager finance Name: Aminata Mendieta RN Notes: Left message regarding samples and [facility] phone number and to call if any questions. Created By: Aminata Mendieta RN Date: November 02, 2021 Method: Phone call Type: Outbound Duration (min): 7 Outcome: Case discussion Contact Type: Complex daycare managerproject manager finance Name: -- Notes: CCM follow-up see FT summary note. Created By: Aminata Mendieta RN Date: October 13, 2021 Method: Phone call Type: Outbound Duration (min): 3 Outcome: Case discussion Contact Type: Complex daycare managerproject manager finance Name: Aminata Mendieta RN Notes: Called daughter and explained information regrding [employer] incontinence program. See Ft summary note. Created By: Aminata Mendieta RN Date: October 13, 2021 Method: Phone call Type: Outbound Duration (min): 4 Outcome: Case discussion Contact Type: Vendor Contact Name: Enzo Notes: Called [facility] to see if there was any coverage for incontinence supplies. Medicare does nort cover but they have incontinence program. See FT summary note. Created By: Aminata Mendieta RN Date: October 13, 2021 Method: Phone call Type: Outbound Duration (min): 10 Outcome: Case discussion Contact Type: Complex daycare managerproject manager finance Name: Aminata Mendieta RN Notes: Called CCM patient to confirm cancellation of appointment and schedule to establish with Dr. Gallardo Created By: Aminata Mendieta RN Date: September 30, 2021 Method: Phone call Type: Outbound Duration (min): 4 Outcome: Case discussion Contact Type: Complex daycare managerproject manager finance Name: Aminata Mendieta RN Notes: Called CCM patient for follow-up after leaving ED AMA yesterday. See message center note. Created By: Aminata Mendieta RN Date: September 29, 2021 Method: Phone call Type: Inbound Duration (min): 6 Outcome: Case discussion Contact Type: Patient advocate Contact Name: Geneva Ny Notes: Patient daughter called patient having chest pain, see message center note. Created By: Aminata Mendieta RN Date: September 23, 2021 Method: Phone call Type: Outbound Duration (min): 6 Outcome: Case discussion Contact Type: Complex daycare managerproject manager finance Name: Aminata Mendieta RN Notes: Called [facility] for update on cough, see message center note. Created By: Aminata Mendieta RN Date: September 21, 2021 Method: Phone call Type: Outbound Duration (min): 3 Outcome: Case discussion Contact Type: Complex daycare managerproject manager finance Name: Aminata Mendieta RN Notes: Called patient rescheduled appointment and advised to restart Mucinex and chaeck with pharmacy this afternoon for new prescriptions. See message center note. Created By: Aminata Mendieta RN Date: September 21, 2021 Method: Phone call Type: Outbound Duration (min): 3 Outcome: Case discussion Contact Type: Complex daycare managerproject manager finance Name: Aminata Mendieta RN Notes: Patient could not wait on hold for Telehealth visit. Will speak with Dr. siufentes and call back with plan of care. Created By: Aminata Mendieta RN Date: September 21, 2021 Method: Phone call Type: Outbound Duration (min): 2 Outcome: Case discussion Contact Type: Complex daycare managerproject manager finance Name: Aminata Mendieta RN Notes: Called patient to schedule appointment per Dr. Sifuentes. See message center note. Created By: Aminata Mendieta RN Date: September 20, 2021 Method: Phone call Type: Outbound Duration (min): 2 Outcome: Case discussion Contact Type: Complex daycare managerproject manager finance Name: Aminata Mendieta RN Notes: Called daughter and explained message sent to Dr. Sifuentes and if patient symptoms worsen please take to [facility], will call with answer. Created By: Aminata Mendieta RN Date: September 20, 2021 Method: Phone call Type: Inbound Duration (min): 1 Outcome: Case discussion Contact Type: Patient advocate Contact Name: Geneva Ny Notes: Daughter left message about productive cough, see message center note. Created By: Aminata Mendieta RN Date: September 09, 2021 Method: Phone call Type: Outbound Duration (min): 25 Outcome: Case discussion Contact Type: Complex daycare managerproject manager finance Name: Aminata Mendieta RN Notes: CCM follow-up, see FT summary note. Created By: Aminata Mendieta RN Date: September 08, 2021 Method: Phone call Type: Outbound Duration (min): -- Outcome: No answer Contact Type: Complex daycare managerproject manager finance Name: Aminata Mendieta RN Notes: Attempted to call daughter to notify of samples available, no answer, no voicemail, Will try again. Created By: Aminata Mendieta RN Date: August 30, 2021 Method: Phone call Type: Inbound Duration (min): 4 Outcome: Case discussion Contact Type: Patient advocate Contact Name: Demetria ny Notes: See message center note regarding samples of Stiolto Created By: Aminata Mendieta RN Date: August 05, 2021 Method: Phone call Type: Outbound Duration (min): 10 Outcome: Case discussion Contact Type: Complex daycare managerproject manager finance Name: Aminata Mendieta RN Notes: CCM follow-up, see FT summary note. Created By: Aminata Mendieta RN Date: July 28, 2021 Method: Phone call Type: Outbound Duration (min): 5 Outcome: Case discussion Contact Type: Complex daycare managerproject manager finance Name: Aminata Mendieta RN Notes: Called daughter back, see message center note. Created By: Aminata Mendieta RN Date: July 28, 2021 Method: Phone call Type: Inbound Duration (min): 1 Outcome: Case discussion Contact Type: Patient advocate Contact Name: Geneva Ny Notes: Daughter left message asking for a return call. Created By: Aminata Mendieta RN Date: July 19, 2021 Method: Phone call Type: Outbound Duration (min): 5 Outcome: Case discussion Contact Type: Complex daycare managerproject manager finance Name: Aminata Mendieta RN Notes: Called [facility] patient regarding cough, see message center note. Created By: Aminata Mendieta RN Date: July 16, 2021 Method: Phone call Type: Inbound Duration (min): 11 Outcome: Case discussion Contact Type: Patient Contact Name: MATEO [place] Notes: Patient returened call with concerns, see message center note. Created By: Aminata Mendieta RN Date: July 16, 2021 Method: Phone call Type: Outbound Duration (min): -- Outcome: Left message-voicemail Contact Type: Complex daycare managerproject manager finance Name: Aminata Mendieta RN Notes: Attempted to call patint for CCM follow-up, no answer, left message asking for a return call. Created By: Aminata Mendieta RN Date: June 30, 2021 Method: Phone call Type: Outbound Duration (min): 22 Outcome: Case discussion Contact Type: Complex daycare managerproject manager finance Name: Aminata Mendieta RN Notes: CCM monthly follow-up. See FT summary note. Created By: Aminata Mendieta RN Date: June 22, 2021 Method: Phone call Type: Outbound Duration (min): 3 Outcome: Case discussion Contact Type: Complex daycare managerproject manager finance Name: Aminata Mendieta RN Notes: Called CCM patient for bi-weekly follow-up. See FT summary note. Created By: Aminata Mendieta RN Date: June 14, 2021 Method: Phone call Type: Outbound Duration (min): 1 Outcome: Left message-voicemail Contact Type: Complex daycare managerproject manager finance Name: Aminata Mendieta RN Notes: Left message explaining prescription had refill at [facility] and to call if any problems. Created By: Aminata Mendieta RN Date: June 14, 2021 Method: Phone call Type: Inbound Duration (min): 1 Outcome: Case discussion Contact Type: Patient advocate Contact Name: Geneva Ny Notes: Left message asking for a refill of Albuterol and return call. Created By: Aminata Mendieta RN Date: June 08, 2021 Method: Phone call Type: Outbound Duration (min): 15 Outcome: Case discussion Contact Type: Complex daycare managerproject manager finance Name: Aminata Mendieta RN Notes: Called CCM patient for follow-up after Botox injections. See FT summary note. Created By: Aminata Mendieta RN Date: May 24, 2021 Method: Phone call Type: Inbound Duration (min): 13 Outcome: Case discussion Contact Type: Patient advocate Contact Name: Geneva Ny Notes: Daughter of CCM patient called regarding a technicians and trades workers referral. SEe FT summary note. Created By: Aminata Mendieta RN Date: May 10, 2021 Method: Phone call Type: Outbound Duration (min): 5 Outcome: Case discussion Contact Type: Complex daycare managerproject manager finance Name: Aminata Mendieta RN Notes: CCm follow-up, see FT summary note. Created By: Aminata Mendieta RN Date: April 19, 2021 Method: Phone call Type: Outbound Duration (min): 1 Outcome: Case discussion Contact Type: Complex daycare managerproject manager finance Name: Aminata Mendieta RN Notes: Called daughter regrding samples of Stioloto Respimat samples. See message center note. Created By: Aminata Mendieta RN Date: April 16, 2021 Method: Phone call Type: Outbound Duration (min): 14 Outcome: Case discussion Contact Type: Complex daycare managerproject manager finance Name: Aminata Mendieta RN Notes: Called CCM patient for follow-up, see case summary note. Created By: Aminata Mendieta RN Date: March 31, 2021 Method: Phone call Type: Outbound Duration (min): 6 Outcome: Case discussion Contact Type: Complex daycare managerproject manager finance Name: Aminata Mendieta RN Notes: CCM follow-up see summary note. Created By: Aminata Mendieta RN Date: March 24, 2021 Method: Phone call Type: Outbound Duration (min): 1 Outcome: Left message-voicemail Contact Type: Complex daycare managerproject manager finance Name: Aminata Mendieta RN Notes: Attempted to return patient call, no answer, left message. See message cente rnote. Created By: Aminata Mendieta RN Date: March 24, 2021 Method: Phone call Type: Inbound Duration (min): 1 Outcome: Case discussion Contact Type: Patient advocate Contact Name: Geneva Ny Notes: Patient daughter left message asking for a call back regarding ATB. Created By: Aminata Mendieta RN Date: March 23, 2021 Method: Phone call Type: Outbound Duration (min): 4 Outcome: Case discussion Contact Type: Complex daycare managerproject manager finance Name: Aminata Mendieta RN Notes: Called CCM patient for follow-up on ED visit from 03/20/21. See summary note. Created By: Aminata Mendieta RN Date: March 19, 2021 Method: Phone call Type: Outbound Duration (min): 11 Outcome: Case discussion Contact Type: Complex daycare managerproject manager finance Name: Aminata Mendieta RN Notes: Called CCM patient for follow-up. See summary note. Created By: Aminata Mendieta RN Date: March 01, 2021 Method: Phone call Type: Outbound Duration (min): 2 Outcome: Case discussion Contact Type: Complex daycare managerproject manager finance Name: Aminata Mendieta RN Notes: Called [facility] regarding inhaler samples, see messsage center note. Created By: Aminata Mendieta RN Date: February 24, 2021 Method: Phone call Type: Inbound Duration (min): 5 Outcome: Case discussion Contact Type: Patient advocate Contact Name: Geneva Ny Notes: See message center note. Created By: Aminaat Mendieta RN Date: February 23, 2021 Method: Phone call Type: Outbound Duration (min): 3 Outcome: Case discussion Contact Type: Complex daycare managerproject manager finance Name: Aminata Mendieta RN Notes: See message center note. Created By: Aminata Mendieta RN Date: February 22, 2021 Method: Phone call Type: Inbound Duration (min): 2 Outcome: Case discussion Contact Type: Patient advocate Contact Name: Geneva Ny Notes: Daughter left detailed message see message note. Created By: Aminata Mendieta RN Date: February 22, 2021 Method: Phone call Type: Inbound Duration (min): 20 Outcome: Case discussion Contact Type: Patient advocate Contact Name: Geneva Ny Notes: Patient daughter called see case summary note. Created By: Aminata Mendieta RN Date: December 31, 2020 Method: Phone call Type: Inbound Duration (min): 2 Outcome: Case discussion Contact Type: Patient advocate Contact Name: Geneva Ny Notes: Daughter called asking about upcoming appointment times and dates. See message cente note. Created By: Aminata Mendieta RN Date: December 22, 2020 Method: Phone call Type: Inbound Duration (min): 2 Outcome: Case discussion Contact Type: Patient Contact Name: MATEO [place] Notes: See case summary note Created By: Aminata Mendieta RN Date: December 22, 2020 Method: Phone call Type: Outbound Duration (min): 3 Outcome: Case discussion Contact Type: Complex daycare managerproject manager finance Name: Aminata Mendieta RN Notes: See message center note. Created By: Aminata Mendieta RN Date: December 22, 2020 Method: Phone call Type: Outbound Duration (min): 5 Outcome: Case discussion Contact Type: Complex daycare managerproject manager finance Name: Aminata Mendieta RN Notes: Called patient regarding messages from Dr. Sifuentes, see message center notes x 2. Created By: Aminata Mendieta RN Date: December 21, 2020 Method: Phone call Type: Outbound Duration (min): 9 Outcome: Case discussion Contact Type: Complex daycare managerproject manager finance Name: Aminata Mendieta RN Notes: See case summary note. Created By: Aminata Mendieta RN Date: December 18, 2020 Method: Phone call Type: Outbound Duration (min): 2 Outcome: Case discussion Contact Type: Patient advocate Contact Name: Dtr- Geneva Notes: CN let her know that was not in today, dtr states that she thinks pt has enough to get thorugh till Monday. CN instucted her to call on Monday if she doesn't hear from Aminata or myself. Created By: Linda Mcdonald RN Date: December 18, 2020 Method: Phone call Type: Outbound Duration (min): 1 Outcome: Case discussion Contact Type: Medical facility Contact Name: [facility] Notes: They have stiolto 5 mcg samples only, message sent to PCP; Created By: Linda Mcdonald RN Date: December 04, 2020 Method: Phone call Type: Outbound Duration (min): 4 Outcome: Case discussion Contact Type: Complex daycare managerproject manager finance Name: Aminata Mendieta RN Notes: See message center note. Created By: Aminata Mendieta RN Date: December 03, 2020 Method: Phone call Type: Inbound Duration (min): 17 Outcome: Case discussion Contact Type: Patient Contact Name: MATEO [place] Notes: [facility] patient called with concerns, see message center note. Created By: Aminata Mendieta RN Date: November 09, 2020 Method: Phone call Type: Outbound Duration (min): 12 Outcome: Case discussion Contact Type: Complex daycare managerproject manager finance Name: Aminata Mendieta RN Notes: Called [facility] patient for update from ED visit yesterday. See case summary note. Created By: Aminata Mendieta RN Date: October 22, 2020 Method: Phone call Type: Inbound Duration (min): 20 Outcome: Case discussion Contact Type: Patient Contact Name: MATEO [place] Notes: [facility] call for October, see case summary note. Created By: Aminata Mendieta RN Date: October 22, 2020 Method: Phone call Type: Outbound Duration (min): -- Outcome: No answer Contact Type: Complex daycare managerproject manager finance Name: Aminata Mendieta RN Notes: Attempted to call daughter regarding sample of inhaler, no answer, voicemail full. Created By: Aminata Mendieta RN Date: October 22, 2020 Method: Phone call Type: Outbound Duration (min): -- Outcome: Left message-voicemail Contact Type: Complex daycare managerproject manager finance Name: Aminata Mendieta RN Notes: Attempted o call patint for October [facility] follow-up. No answer, left message asking ofr a return call. Created By: Aminata Mendieta RN Date: October 21, 2020 Method: Phone call Type: Inbound Duration (min): 3 Outcome: Case discussion Contact Type: Patient advocate Contact Name: Geneva Ny Notes: Daughter called regarding need for Stioloto Respimt inhaler, see case summary note. Created By: Aminata Mendieta RN Date: September 22, 2020 Method: Phone call Type: Inbound Duration (min): 22 Outcome: Case discussion Contact Type: Patient Contact Name: MATEO [place] Notes: [facility] patient called with questions and concerns. See case summary note. Created By: Aminata Mendieta RN Date: September 08, 2020 Method: Phone call Type: Outbound Duration (min): 3 Outcome: Case discussion Contact Type: Complex daycare managerproject manager finance Name: Aminata Mendieta RN Notes: Called [facility] patient regarding outpatient surgery yesterdy, see case summary note. Created By: Aminata Mendieta RN Date: September 02, 2020 Method: Phone call Type: Outbound Duration (min): 19 Outcome: Case discussion Contact Type: Complex daycare managerproject manager finance Name: Aminata Mendieta RN Notes: [facility] monthly follow-up, see case summary note. Created By: Aminata Mendieta RN Date: September 02, 2020 Method: Phone call Type: Outbound Duration (min): -- Outcome: Left message-voicemail Contact Type: Complex daycare managerproject manager finance Name: Aminata Mendieta RN Notes: Patient left message on [facility] phone asking for a return call, called patient , no answer, left message asking for a return call. Created By: Aminata Mendieta RN Date: August 13, 2020 Method: Phone call Type: Outbound Duration (min): 2 Outcome: Case discussion Contact Type: Complex daycare managerproject manager finance Name: Aminata Mendieta RN Notes: Called [facility] patient regarding medication for ringworm, see message center note. Created By: Aminata Mendieta RN Date: August 11, 2020 Method: Phone call Type: Inbound Duration (min): 3 Outcome: Case discussion Contact Type: Complex daycare managerproject manager finance Name: Tremayne MICHAELS [employer] Notes: See message center note regarding ringworm Created By: Aminata Mendieta RN Date: July 29, 2020 Method: Phone call Type: Outbound Duration (min): 21 Outcome: Case discussion Contact Type: Complex daycare managerproject manager finance Name: Aminata Mendieta RN Notes: [facility] monthly follow-up, patient in ED yesterday. See case summary note. Created By: Aminata Mendieta RN Date: July 10, 2020 Method: Phone call Type: Outbound Duration (min): 26 Outcome: Case discussion Contact Type: Complex daycare managerproject manager finance Name: Aminata Mendieta RN Notes: [facility] monthly call. See case summary note. Created By: Aminata Mendieta RN Date: February 27, 2020 Method: Phone call Type: Outbound Duration (min): 21 Outcome: Case discussion Contact Type: academic affairs coordinator Contact Name: Aminata Mendieta RN Notes: [facility] monthly call, See case summary note. Created By: Aminata Mendieta RN Date: December 31, 2019 Method: Phone call Type: Outbound Duration (min): 2 Outcome: Case discussion Contact Type: Complex daycare managerproject manager finance Name: Aminata Mendieta RN Notes: [facility] patient notified of prescriptions sent in, see message center note. Created By: Aminata Mendieta RN Date: December 30, 2019 Method: Phone call Type: Outbound Duration (min): 22 Outcome: Case discussion Contact Type: Complex daycare managerproject manager finance Name: Aminata Mendieta RN Notes: CCM call, see case summary note. Created By: Aminata Mendieta RN Date: December 09, 2019 Method: Phone call Type: Outbound Duration (min): 7 Outcome: Case discussion Contact Type: Complex daycare managerproject manager finance Name: Aminata Mendieta RN Notes: [facility] monthly call, see case summary note. Created By: Aminata Mendieta RN Date: November 28, 2019 Method: Phone call Type: Outbound Duration (min): 1 Outcome: Case discussion Contact Type: Complex daycare managerproject manager finance Name: Teena Zheng Notes: See message center note. Created By: Aminata Mendieta RN Date: November 28, 2019 Method: Phone call Type: Inbound Duration (min): 3 Outcome: Case discussion Contact Type: Patient Contact Name: M[place]O [place] Notes: See message center note. Created By: Aminata Mendieta RN Date: November 13, 2019 Method: Phone call Type: Inbound Duration (min): 11 Outcome: Case discussion Contact Type: Complex daycare managerproject manager finance Name: Aminata Mendieta RN Notes: [facility] patient called with concerns, see case summary note. Created By: Aminata Mendieta RN Date: November 05, 2019 Method: Phone call Type: Outbound Duration (min): 8 Outcome: Case discussion Contact Type: Complex daycare managerproject manager finance Name: Aminata Mendieta RN Notes: [facility] call October, see case summary note. Created By: Aminata Mendieta RN Date: October 28, 2019 Method: Phone call Type: Inbound Duration (min): 2 Outcome: Case discussion Contact Type: Complex daycare managerproject manager finance Name: Blanka Swain LPN Notes: Patient returned call regarding increase in medications. see message center note. Created By: Aminata Mendieta RN Date: October 28, 2019 Method: Phone call Type: Outbound Duration (min): 3 Outcome: Case discussion Contact Type: Complex daycare managerproject manager finance Name: Bret URIASMoon Notes: Results given regarding abdominal xray and Dr. Sifuentes recommendations, see message center note. Created By: Aminata Mendieta RN Date: October 21, 2019 Method: Phone call Type: Outbound Duration (min): 8 Outcome: Case discussion Contact Type: Complex daycare managerproject manager finance Name: Aminata Mendieta RN Notes: [facility] October call. See case summary note. Created By: Aminata Mendieta RN Date: September 03, 2019 Method: Phone call Type: Outbound Duration (min): 21 Outcome: Case discussion Contact Type: Complex daycare managerproject manager finance Name: Aminata Mendieta RN Notes: [facility] monthly Lorna call. See case summary call. Created By: Aminata Mendieta RN Date: July 30, 2019 Method: Phone call Type: Outbound Duration (min): 21 Outcome: Case discussion Contact Type: social media managerproject manager finance Name: Aminata Mendieta RN Notes: [facility] May call, see caase summary note. Created By: Aminata Mendieta RN Date: July 09, 2019 Method: Phone call Type: Outbound Duration (min): 17 Outcome: Case discussion Contact Type: academic affairs coordinator Contact Name: Aminata Mendieta RN Notes: CCM bi-weekly call. see case summary note. Created By: Aminata Mendieta RN Date: July 08, 2019 Method: Phone call Type: Outbound Duration (min): -- Outcome: No answer Contact Type: social media managerproject manager finance Name: Aminata Mendieta RN Notes: Attempted to call patient for update on medicaations, no answer, unable to leave voicemail. Created By: Aminata Mendieta RN Date: June 18, 2019 Method: Phone call Type: Outbound Duration (min): -- Outcome: Case discussion Contact Type: social media managerproject manager finance Name: Aminata Mendieta RN Notes: Attempted to callpatietn for bi-weekly CCM call for June, no answer, left message asking for return call. Created By: Aminata Mendieta RN Date: June 04, 2019 Method: Phone call Type: Outbound Duration (min): 13 Outcome: Case discussion Contact Type: social media managerproject manager finance Name: Aminata Mendieta RN Notes: CCM May call, see case summary note. Created By: Aminata Mendieta RN Date: June 04, 2019 Method: Phone call Type: Outbound Duration (min): 1 Outcome: Left message-voicemail Contact Type: academic affairs coordinator Contact Name: Aminata Mendieta RN Notes: CCM May call, no answer, left message asking for return call. Created By: Aminata Mendieta RN Date: May 20, 2019 Method: Phone call Type: Outbound Duration (min): 13 Outcome: Case discussion Contact Type: social media managerproject manager finance Name: Aminata Mendieta RN Notes: CCM May call. see case summary note. Created By: Aminata Mendieta RN Date: April 26, 2019 Method: Phone call Type: Inbound Duration (min): 10 Outcome: Case discussion Contact Type: Patient Contact Name: MATEO [place] Notes: Patient called CN for CCM follow-up. See Case Summary Note. Created By: Brice Stephenson RN Date: April 16, 2019 Method: In-person Type: -- Duration (min): 22 Outcome: Case discussion Contact Type: Patient Contact Name: MATEO [place] Notes: Patient came to primary care office for assistance with medication patient assistance form. See Case Summary note. Created By: Brice Stephenson RN Date: April 16, 2019 Method: Phone call Type: Outbound Duration (min): -- Outcome: Left message-voicemail Contact Type: social media managerproject manager finance Name: Brice Stephenson RN Notes: CN attempted to call patient for CCM follow-up related to assistance with patient drug assistance paperwork completion. Message left with needed information from patient. Asked patient to return call to CN to discuss further. Created By: Brice Stephenson RN Date: April 08, 2019 Method: Phone call Type: Outbound Duration (min): 22 Outcome: Case discussion Contact Type: social media managerproject manager finance Name: Brice Stephenson RN Notes: CN returned call to patient. See Case Summary note. Created By: Brice Stephenson RN Date: April 08, 2019 Method: Phone call Type: Inbound Duration (min): -- Outcome: Case discussion Contact Type: Patient Contact Name: MATEO [place] Notes: Patient called and left message for CN requesting return call. Patient notes she has received paperwork in regards to her refill medication and needs assistance to complete paperwork from PCP office. Asking for return phone call. Created By: Brice Stephenson RN Date: April 08, 2019 Method: Phone call Type: Outbound Duration (min): -- Outcome: No answer Contact Type: social media managerproject manager finance Name: Brice Stephenson RN Notes: CN attempted to return patient's call. No answer. Patient's VM currently noted to be full and unable to leave a message at this time. Created By: Brice Stephenson RN Date: March 11, 2019 Method: Phone call Type: Outbound Duration (min): 5 Outcome: Case discussion Contact Type: social media managerproject manager finance Name: Brice Stephenson RN Notes: CN returned call to patient for CCM follow-up call. See Case Summary note. Created By: Brice Stephenson RN Date: March 10, 2019 Method: Phone call Type: Inbound Duration (min): -- Outcome: Case discussion Contact Type: Patient Contact Name: MATEO [place] Notes: Patient called and left message on CN message system over the weekend. Reports she feels strange but states it is not an emergency. Requesting a call back. Created By: Brice Stephenson RN Date: February 27, 2019 Method: In-person Type: -- Duration (min): 4 Outcome: Case discussion Contact Type: social media managerproject manager finance Name: Brice Stephenson RN Notes: CN returned call to patient after conferring with PCP. Created By: Brice Stephenson RN Date: February 27, 2019 Method: Phone call Type: Inbound Duration (min): 7 Outcome: Case discussion Contact Type: Patient Contact Name: MATEO [place] Notes: Patient called CN about Eye appt and BP concerns, CCM follow-up. See Case Summary note. Created By: Brice Stephenson RN Date: February 20, 2019 Method: Phone call Type: Outbound Duration (min): -- Outcome: Left message-voicemail Contact Type: social media managerproject manager finance Name: Brice Stephenson RN Notes: CN attempted to call patient for CCM follow-up call. No answer. Left message asking for return phone call with patient update. Created By: Brice Stephenson RN Date: February 20, 2019 Method: Phone call Type: Inbound Duration (min): 22 Outcome: Case discussion Contact Type: Patient Contact Name: MATEO [place] Notes: Patient returned call to CN for CCM follow-up call. See Case Summary note. Created By: Brice Stephenson RN Date: February 08, 2019 Method: Phone call Type: Outbound Duration (min): -- Outcome: Left message-voicemail Contact Type: social media managerproject manager finance Name: Brice Stephenson RN Notes: CN attempted to call patient for CCM follow-up. No answer. Left message asking for return call. Created By: Brice Stephenson RN Date: January 03, 2019 Method: Phone call Type: Outbound Duration (min): 67 Outcome: Case discussion Contact Type: social media managerproject manager finance Name: Brice Stephenson RN Notes: CN met with patient for CCM initial intake assessment. See I-view and Case Summary note. Created By: Brice Stephenson RN POPULATION HEALTH Observed: 04/05/2023 11:33 AM Status: F Source: [facility] Case Information Case Priority: None Programs: -- Referral Source: Mine Engineer Referral Reason: Disease management Case Type: Chronic [...] callus, mole removal, Tubal ligation. Home Medications acetaminophen-oxycodone 325 mg-5 mg Tab, 1 tab(s), Oral, BID albuterol HFA 90 mcg/inh MDI, 2 puff(s), Inhalation, q4hr, PRN, 11 refills, Not taking albuterol-ipratropium Inh Lizzeth 3 mL UD, 3 mL, [...] Phone Call Monitoring Consent Agreed to continue call Phone Verification Patient Information Full name, street address and date of verified CM Program Enrollment Written consent completed 01/03/19 12:00:00 Result Name Value Comment HIPPA Verified Type of Contact In person in the office Information Given by Patient CM Preferred Spoken Language Comoran CM Preferred Written Language Swiss Preferred Communication Mode Verbal Ability to Read/Write Able to read, Able to write Preferred Method of Contact Cell Best Time to Visit or Contact 10-1 pm, 1-5 pm Best Day to Visit or Contact No preference Preferred Way to Send PHI Standard mail Lives In Single level home Number in Household 3 Lives with handicapped brother and daughter. 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 Start Date: 2018 Target: - - Status: - - Barriers: - - Comments: - - Intervention Frequency Status Credit Or Loans Officer Use inhaler as prescribed by PCP - - Done - - Start Water aerobic exercises beginning 01/08/19 2 days per week to include water walking - - Done - - Use nebulizer machine as needed for SOB for COPD. - - Progressing - - 10/12/21 Fill Rx for Rescue pack and call CN if starts medications - - Done - - Goal: Will have improvement in lower leg swelling Start Date: 2020 Target: - - Status: - - Barriers: - - Comments: - - Intervention Frequency Status Credit Or Loans Officer Decrease sodium intake to 2000 mg daily, do not use salt shaker. - - Progressing - - Weigh daily, record and notify CN of 3# weight gain in day or %3 over a week. - - Not done - - Keep appointment with Dr. Sifuentes on 10/13/20 at 0920 - - Done - - 06/08/21 Patient is going to try to return to water aerobics once per week, - - Not done - - Keep legs elevated when sitting - - Progressing - - Goal: Reduce frequency of Urinary Tract infections Start Date: 2021 Target: - - Status: - - Barriers: - - Comments: - - Intervention Frequency Status Credit Or Loans Officer Call office at first signs and symptoms of UTI for urinalysis. - - Progressing - - Drink 64 oz of fluids each day to stay hydrated. - - Progressing - - Go to restroom at first sign of urinary urge and not hold. - - Progressing - - See urologist as needed. - - Progressing - - Botox injections for urinary incontinence every 6 months as needed. 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 Start Date: 2018 Target: - - Status: Met Barriers: - - Comments: - - Intervention Frequency Status Credit Or Loans Officer Start water therapy on January 08 and attend every Monday and each week - - Done - - Patient to call Chiropractor to have diapraghm put back in place as needed. - - Progressing - - Goal: Will have relief from constipation Start Date: 2019 Target: - - Status: Met Barriers: - - Comments: - - Intervention Frequency Status Credit Or Loans Officer Take OTC MiraLax 17 gm 1.5 caps BID - - Done - - Follow up with Title Supervisor as needed. - - Done - - Take Trulance 3 mg daily for constipation - - Done - - Right hernia repari surgery scheduled for 09/07/20. - - Done - - Take Ducolax 2 tab a bedtime as directed - - Done - - Progress Note 04/05/23. 1115. 15 minutes. CN called patient for Mar. Patient reports she is feeling better since she had a manipulation done by PCP at prior visit. Patient reports she is able to be up and moving without assistance of a cane or walker. Patient reports she is only taking Ibuprofen and has not required any oxycodone. Patient reports she does not check BP at home. CN advised last reading at PCP office was normal. Patient was advised to monitor periodically at home. Patient reports her breathing is at her baseline. She reports stopping inhalers and not needing to take nebulizers. Patient reports she does have to use O2 occasionally. She reports she normal wears at HS. Patient reports she will see Dr. Mason on 04/17 or 04/18. She had blood work done by him and is in the chart. Patient denies any further needs at this time. 1130. Communication Events Date: April 05, 2023 Method: Phone call Type: Outbound Duration (min): 15 Outcome: Case discussion Contact Type: academic affairs coordinator Contact Name: Dereck Rosario RN Notes: Called for Peña CCM. See case summary note. Created By: Dereck Rosario RN Date: March 08, 2023 Method: Phone call Type: Outbound Duration (min): 20 Outcome: Case discussion Contact Type: academic affairs coordinator Contact Name: Dereck Rosario RN Notes: Called for Dec CCM. See case summary note. Created By: Dereck Rosario RN Date: March 08, 2023 Method: Phone call Type: Outbound Duration (min): 1 Outcome: Left message-voicemail Contact Type: academic affairs coordinator Contact Name: Dereck Rosario RN Notes: Called for Dec CCM. Left message asking for return phone call. Created By: Dereck Rosario RN Date: January 13, 2023 Method: Phone call Type: Inbound Duration (min): 10 Outcome: Case discussion Contact Type: Patient Contact Name: M[place]O [place] Notes: CCM patient called, see FT summary note. Created By: Aminata Mendieta RN Date: January 12, 2023 Method: Phone call Type: Outbound Duration (min): 10 Outcome: Case discussion Contact Type: Complex daycare managerproject manager finance Name: Aminata Mendieta RN Notes: Called patient for CCM follow-up, spoke with daughter see FT summary note. Created By: Aminata Mendieta RN Date: November 23, 2022 Method: Phone call Type: Outbound Duration (min): 1 Outcome: Left message-voicemail Contact Type: Complex daycare managerproject manager finance Name: Aminata Mendieta RN Notes: Attempted to call daughter cell phone for CCM follow-up, no answer, left message asking for a return call. Created By: Aminata Mendieta RN Date: November 23, 2022 Method: Phone call Type: Outbound Duration (min): 1 Outcome: Left message-voicemail Contact Type: Complex daycare managerproject manager finance Name: Aminata Mendieta RN Notes: Attempted to call patient for CCM, no answer left message asking for a return call. Created By: Aminata Mendieta RN Date: August 31, 2022 Method: Phone call Type: Outbound Duration (min): 17 Outcome: Case discussion Contact Type: Pharmacist Contact Name: Nelli Dhillon PharmD Notes: Medication review with pharmacy. See SOAP note. Created By: Aminata Mendieta RN Date: August 23, 2022 Method: Phone call Type: Outbound Duration (min): 7 Outcome: Case discussion Contact Type: Medical facility Contact Name: Aminata Mendieta Notes: spoke with Iris from Patient expereince, please see FT summary note. Created By: Aminata Mendieta RN Date: August 23, 2022 Method: Phone call Type: Outbound Duration (min): 16 Outcome: Case discussion Contact Type: Complex daycare managerproject manager finance Name: Aminata Mendieta RN Notes: Daughter left 2 messages while CCN on vacation, returned call see FT summary note. Created By: Aminata Mendieta RN Date: August 01, 2022 Method: Phone call Type: Inbound Duration (min): 7 Outcome: Case discussion Contact Type: Patient advocate Contact Name: [place] Notes: Daughterr called with updates. See FT summary note. Created By: Aminata Mendieta RN Date: July 21, 2022 Method: Phone call Type: Outbound Duration (min): 15 Outcome: Case discussion Contact Type: Complex daycare managerproject manager finance Name: Aminata Mendieta RN Notes: See FT summary note. Created By: Aminata Mendieta RN Date: July 15, 2022 Method: Phone call Type: Outbound Duration (min): 1 Outcome: Left message-voicemail Contact Type: Complex daycare managerproject manager finance Name: Aminata Mendieta RN Notes: Daughter left message at 1030 asking for a return call, called daughter, no answer, left message to call again. Patient was seen by Dr. Hernandez today in [facility]. Created By: Aminata Mendieta RN Date: June 22, 2022 Method: Phone call Type: Outbound Duration (min): 20 Outcome: Case discussion Contact Type: Complex daycare managerproject manager finance Name: Amintaa Mendieta RN Notes: Daughter left message asking for a return call, called patient, spoke with daughter see FT summary note. Created By: Aminata Mendieta RN Date: May 25, 2022 Method: Phone call Type: Inbound Duration (min): 1 Outcome: Case discussion Contact Type: Patient Contact Name: MATEO [place] Notes: Daughter left message that she started Rescue pack and would like a generic refill for Dexilant, see message center note. Created By: Aminata Mendieta RN Date: May 19, 2022 Method: Phone call Type: Inbound Duration (min): 3 Outcome: Case discussion Contact Type: Patient advocate Contact Name: [place] Ny Notes: Daughter called with information for help at hand for Dexilant. see message center note. Created By: Aminata Mendieta RN Date: May 17, 2022 Method: Phone call Type: Inbound Duration (min): 22 Outcome: Case discussion Contact Type: Patient advocate Contact Name: [place] Ny Notes: Daughter [place] calls with concerns see message center note. Created By: Aminata Mendieta RN Date: May 10, 2022 Method: Phone call Type: Outbound Duration (min): 10 Outcome: Case discussion Contact Type: Complex daycare managerproject manager finance Name: Aminata Mendieta RN Notes: Daughter left message asking for a return call. Called daughter, see FT summary note. Created By: Aminata Mendieta RN Date: March 25, 2022 Method: Phone call Type: Inbound Duration (min): 10 Outcome: Case discussion Contact Type: Patient Contact Name: ANANT MATEO G Notes: CCM patient calls with complaints of thrush again, see message center note. Created By: Aminata Mendieta RN Date: March 16, 2022 Method: Phone call Type: Outbound Duration (min): 5 Outcome: Case discussion Contact Type: Complex daycare managerproject manager finance Name: Aminata Mendieta RN Notes: Called daughter back regarding Prednsone prescription. See message center note. Created By: Aminata Mendieta RN Date: March 16, 2022 Method: Phone call Type: Outbound Duration (min): 1 Outcome: Case discussion Contact Type: Complex daycare managerproject manager finance Name: Juani De La Garza MA Notes: XENIA called patient about prescription for Prednisone. Created By: Aminata Mendieta RN Date: March 15, 2022 Method: Phone call Type: Outbound Duration (min): 1 Outcome: Left message-voicemail Contact Type: Complex daycare managerproject manager finance Name: Aminata Mendieta RN Notes: Left message that Pulmonology office should call tomorrow to schedule patient. Created By: Aminata Mendieta RN Date: March 15, 2022 Method: Phone call Type: Outbound Duration (min): 3 Outcome: Case discussion Contact Type: Specialist Contact Name: Aminata Mendieta RN Notes: Called Pulmonology to see about referral for patient, see message center note. Created By: Aminata Mendieta RN Date: March 04, 2022 Method: Phone call Type: Outbound Duration (min): 6 Outcome: Case discussion Contact Type: Complex daycare managerproject manager finance Name: Aminata Mendieta RN Notes: Called CCM patient for follow-up on thrush, see FT summary note. Created By: Aminata Mendieta RN Date: February 21, 2022 Method: Phone call Type: Inbound Duration (min): 15 Outcome: Case discussion Contact Type: Patient Contact Name: ANANT MATEO Todd Notes: CCM patient called started COPD rescue pack 02/18/22. See FT summary note. Created By: Aminata Mendieta RN Date: February 15, 2022 Method: Phone call Type: Outbound Duration (min): 1 Outcome: Case discussion Contact Type: Complex daycare managerproject manager finance Name: Aminata Mendieta RN Notes: CCM patient called for follow-up and to schedule appointment, no answer, left voicemail asking for a return call. Created By: Aminata Mendieta RN Date: January 24, 2022 Method: Phone call Type: Outbound Duration (min): 11 Outcome: Case discussion Contact Type: Complex daycare managerproject manager finance Name: Aminata Mendieta RN Notes: Called CCM patient for follow-up. Created By: Aminata Mendieta RN Date: January 13, 2022 Method: In-person Type: -- Duration (min): 7 Outcome: Case discussion Contact Type: Complex daycare managerproject manager finance Name: Aminata Mendieta RN Notes: Patient in office asking for samples of Stiolto Respimat. Created By: Aminata Mendieta RN Date: January 12, 2022 Method: Phone call Type: Outbound Duration (min): 3 Outcome: Case discussion Contact Type: Complex daycare managerproject manager finance Name: Debbi Hammer Notes: See message center note. Created By: Aminata Mendieta RN Date: January 12, 2022 Method: Phone call Type: Inbound Duration (min): 6 Outcome: Case discussion Contact Type: Patient advocate Contact Name: Geneva Averycuso Notes: Daughter called patient started COPD Rescue pack on 01/09/22, see message center note. Created By: Aminata Mendieta RN Date: December 28, 2021 Method: Phone call Type: Inbound Duration (min): 25 Outcome: Case discussion Contact Type: Patient advocate Contact Name: Geneva Averycuso Notes: daughter called with updates and needs for medications. See message center note. Created By: Aminata Mendieta RN Date: November 30, 2021 Method: Phone call Type: Outbound Duration (min): 18 Outcome: Case discussion Contact Type: Complex daycare managerproject manager finance Name: Aminata Mendieta RN Notes: Called [facility] patient for follow-up, see FT summary note. Created By: Aminata Mendieta RN Date: November 23, 2021 Method: Phone call Type: Inbound Duration (min): 5 Outcome: Case discussion Contact Type: Patient advocate Contact Name: -- Notes: Daughter called regarding patient breathing and samples of Stioloto inhaler. See FT summary note. Created By: Aminata Mendieta RN Date: November 02, 2021 Method: Phone call Type: Outbound Duration (min): 1 Outcome: Left message-voicemail Contact Type: Complex daycare managerproject manager finance Name: Aminata Mendieta RN Notes: Left message regarding samples and [facility] phone number and to call if any questions. Created By: Aminata Mendieta RN Date: November 02, 2021 Method: Phone call Type: Outbound Duration (min): 7 Outcome: Case discussion Contact Type: Complex daycare managerproject manager finance Name: -- Notes: [facility] follow-up see FT summary note. Created By: Aminata Mendieta RN Date: October 13, 2021 Method: Phone call Type: Outbound Duration (min): 3 Outcome: Case discussion Contact Type: Complex daycare managerproject manager finance Name: Aminata Mendieta RN Notes: Called daughter and explained information regrding [facility] incontinence program. See Ft summary note. Created By: Aminata Mendieta RN Date: October 13, 2021 Method: Phone call Type: Outbound Duration (min): 4 Outcome: Case discussion Contact Type: Vendor Contact Name: Enzo Notes: Called [facility] to see if there was any coverage for incontinence supplies. Medicare does nort cover but they have incontinence program. See FT summary note. Created By: Aminata Mendieta RN Date: October 13, 2021 Method: Phone call Type: Outbound Duration (min): 10 Outcome: Case discussion Contact Type: Complex daycare managerproject manager finance Name: Aminata Mendieta RN Notes: Called CCM patient to confirm cancellation of appointment and schedule to establish with Dr. Gallardo Created By: Aminata Mendieta RN Date: September 30, 2021 Method: Phone call Type: Outbound Duration (min): 4 Outcome: Case discussion Contact Type: Complex daycare managerproject manager finance Name: Aminata Mendieta RN Notes: Called CCM patient for follow-up after leaving ED AMA yesterday. See message center note. Created By: Aminata Mendieta RN Date: September 29, 2021 Method: Phone call Type: Inbound Duration (min): 6 Outcome: Case discussion Contact Type: Patient advocate Contact Name: Geneva Ny Notes: Patient daughter called patient having chest pain, see message center note. Created By: Aminata Mendieta RN Date: September 23, 2021 Method: Phone call Type: Outbound Duration (min): 6 Outcome: Case discussion Contact Type: Complex daycare managerproject manager finance Name: Aminata Mendieta RN Notes: Called CCM for update on cough, see message center note. Created By: Aminata Mendieta RN Date: September 21, 2021 Method: Phone call Type: Outbound Duration (min): 3 Outcome: Case discussion Contact Type: Complex daycare managerproject manager finance Name: Aminata Mendieta RN Notes: Called patient rescheduled appointment and advised to restart Mucinex and chaeck with pharmacy this afternoon for new prescriptions. See message center note. Created By: Aminata Mendieta RN Date: September 21, 2021 Method: Phone call Type: Outbound Duration (min): 3 Outcome: Case discussion Contact Type: Complex daycare managerproject manager finance Name: Aminata Mendieta RN Notes: Patient could not wait on hold for Telehealth visit. Will speak with Dr. sifuentes and call back with plan of care. Created By: Aminata Mendieta RN Date: September 21, 2021 Method: Phone call Type: Outbound Duration (min): 2 Outcome: Case discussion Contact Type: Complex daycare managerproject manager finance Name: Aminata Mendieta RN Notes: Called patient to schedule appointment per Dr. Sifuentes. See message center note. Created By: Aminata Mendieta RN Date: September 20, 2021 Method: Phone call Type: Outbound Duration (min): 2 Outcome: Case discussion Contact Type: Complex daycare managerproject manager finance Name: Aminata Mendieta RN Notes: Called daughter and explained message sent to Dr. Sifuentes and if patient symptoms worsen please take to [facility], will call with answer. Created By: Aminata Mendieta RN Date: September 20, 2021 Method: Phone call Type: Inbound Duration (min): 1 Outcome: Case discussion Contact Type: Patient advocate Contact Name: Geneva Ny Notes: Daughter left message about productive cough, see message center note. Created By: Aminata Mendieta RN Date: September 09, 2021 Method: Phone call Type: Outbound Duration (min): 25 Outcome: Case discussion Contact Type: Complex daycare managerproject manager finance Name: Aminata Mendieta RN Notes: CCM follow-up, see FT summary note. Created By: Aminata Mendieta RN Date: September 08, 2021 Method: Phone call Type: Outbound Duration (min): -- Outcome: No answer Contact Type: Complex daycare managerproject manager finance Name: Aminata Mendieta RN Notes: Attempted to call daughter to notify of samples available, no answer, no voicemail, Will try again. Created By: Aminata Mendieta RN Date: August 30, 2021 Method: Phone call Type: Inbound Duration (min): 4 Outcome: Case discussion Contact Type: Patient advocate Contact Name: Demetria ny Notes: See message center note regarding samples of Stiolto Created By: Aminata Mendieta RN Date: August 05, 2021 Method: Phone call Type: Outbound Duration (min): 10 Outcome: Case discussion Contact Type: Complex daycare managerproject manager finance Name: Aminata Mendieta RN Notes: CCM follow-up, see FT summary note. Created By: Aminata Mendieta RN Date: July 28, 2021 Method: Phone call Type: Outbound Duration (min): 5 Outcome: Case discussion Contact Type: Complex daycare managerproject manager finance Name: Aminata Mendieta RN Notes: Called daughter back, see message center note. Created By: Aminata Mendieta RN Date: July 28, 2021 Method: Phone call Type: Inbound Duration (min): 1 Outcome: Case discussion Contact Type: Patient advocate Contact Name: Geneva Ny Notes: Daughter left message asking for a return call. Created By: Aminata Mendieta RN Date: July 19, 2021 Method: Phone call Type: Outbound Duration (min): 5 Outcome: Case discussion Contact Type: Complex daycare managerproject manager finance Name: Aminata Mendieta RN Notes: Called [facility] patient regarding cough, see message center note. Created By: Aminata Mendieta RN Date: July 16, 2021 Method: Phone call Type: Inbound Duration (min): 11 Outcome: Case discussion Contact Type: Patient Contact Name: MATEO [place] Notes: Patient returened call with concerns, see message center note. Created By: Aminata Mendieta RN Date: July 16, 2021 Method: Phone call Type: Outbound Duration (min): -- Outcome: Left message-voicemail Contact Type: Complex daycare managerproject manager finance Name: Aminata Mendieta RN Notes: Attempted to call patint for CCM follow-up, no answer, left message asking for a return call. Created By: Aminata Mendieta RN Date: June 30, 2021 Method: Phone call Type: Outbound Duration (min): 22 Outcome: Case discussion Contact Type: Complex daycare managerproject manager finance Name: Aminata Mendieta RN Notes: [facility] monthly follow-up. See FT summary note. Created By: Aminata Mendieta RN Date: June 22, 2021 Method: Phone call Type: Outbound Duration (min): 3 Outcome: Case discussion Contact Type: Complex daycare managerproject manager finance Name: Aminata Mendieta RN Notes: Called CCM patient for bi-weekly follow-up. See FT summary note. Created By: Aminata Mendieta RN Date: June 14, 2021 Method: Phone call Type: Outbound Duration (min): 1 Outcome: Left message-voicemail Contact Type: Complex daycare managerproject manager finance Name: Aminata Mendieta RN Notes: Left message explaining prescription had refill at [facility] and to call if any problems. Created By: Aminata Mendieta RN Date: June 14, 2021 Method: Phone call Type: Inbound Duration (min): 1 Outcome: Case discussion Contact Type: Patient advocate Contact Name: Geneva Ny Notes: Left message asking for a refill of Albuterol and return call. Created By: Aminata Mendieta RN Date: June 08, 2021 Method: Phone call Type: Outbound Duration (min): 15 Outcome: Case discussion Contact Type: Complex daycare managerproject manager finance Name: Aminata Mendieta RN Notes: Called CCM patient for follow-up after Botox injections. See FT summary note. Created By: Aminata Mendieta RN Date: May 24, 2021 Method: Phone call Type: Inbound Duration (min): 13 Outcome: Case discussion Contact Type: Patient advocate Contact Name: Geneva Ny Notes: Daughter of CCM patient called regarding a technicians and trades workers referral. SEe FT summary note. Created By: Aminata Mendieta RN Date: May 10, 2021 Method: Phone call Type: Outbound Duration (min): 5 Outcome: Case discussion Contact Type: Complex daycare managerproject manager finance Name: Aminata Mendieta RN Notes: CCm follow-up, see FT summary note. Created By: Aminata Mendieta RN Date: April 19, 2021 Method: Phone call Type: Outbound Duration (min): 1 Outcome: Case discussion Contact Type: Complex daycare managerproject manager finance Name: Aminata Mendieta RN Notes: Called daughter regrding samples of Stioloto Respimat samples. See message center note. Created By: Aminata Mendieta RN Date: April 16, 2021 Method: Phone call Type: Outbound Duration (min): 14 Outcome: Case discussion Contact Type: Complex daycare managerproject manager finance Name: Aminata Mendieta RN Notes: Called CCM patient for follow-up, see case summary note. Created By: Aminata Mendieta RN Date: March 31, 2021 Method: Phone call Type: Outbound Duration (min): 6 Outcome: Case discussion Contact Type: Complex daycare managerproject manager finance Name: Aminata Mendieta RN Notes: CCM follow-up see summary note. Created By: Aminata Mendieta RN Date: March 24, 2021 Method: Phone call Type: Outbound Duration (min): 1 Outcome: Left message-voicemail Contact Type: Complex daycare managerproject manager finance Name: Aminata Mendieta RN Notes: Attempted to return patient call, no answer, left message. See message cente rnote. Created By: Aminata Mendieta RN Date: March 24, 2021 Method: Phone call Type: Inbound Duration (min): 1 Outcome: Case discussion Contact Type: Patient advocate Contact Name: Geneva Ny Notes: Patient daughter left message asking for a call back regarding ATB. Created By: Aminata Mendieta RN Date: March 23, 2021 Method: Phone call Type: Outbound Duration (min): 4 Outcome: Case discussion Contact Type: Complex daycare managerproject manager finance Name: Aminata Mendieta RN Notes: Called CCM patient for follow-up on ED visit from 03/20/21. See summary note. Created By: Aminata Mendieta RN Date: March 19, 2021 Method: Phone call Type: Outbound Duration (min): 11 Outcome: Case discussion Contact Type: Complex daycare managerproject manager finance Name: Aminata Mendieta RN Notes: Called CCM patient for follow-up. See summary note. Created By: Aminata Mendieta RN Date: March 01, 2021 Method: Phone call Type: Outbound Duration (min): 2 Outcome: Case discussion Contact Type: Complex daycare managerproject manager finance Name: Aminata Mendieta RN Notes: Called [facility] regarding inhaler samples, see messsage center note. Created By: Aminata Mendieta RN Date: February 24, 2021 Method: Phone call Type: Inbound Duration (min): 5 Outcome: Case discussion Contact Type: Patient advocate Contact Name: Geneva Ny Notes: See message center note. Created By: Aminata Mendieta RN Date: February 23, 2021 Method: Phone call Type: Outbound Duration (min): 3 Outcome: Case discussion Contact Type: Complex daycare managerproject manager finance Name: Aminata Mendieta RN Notes: See message center note. Created By: Aminata Mendieta RN Date: February 22, 2021 Method: Phone call Type: Inbound Duration (min): 2 Outcome: Case discussion Contact Type: Patient advocate Contact Name: Geneva Ny Notes: Daughter left detailed message see message note. Created By: Aminata Mendieta RN Date: February 22, 2021 Method: Phone call Type: Inbound Duration (min): 20 Outcome: Case discussion Contact Type: Patient advocate Contact Name: Geneva Ny Notes: Patient daughter called see case summary note. Created By: Aminata Mendieta RN Date: December 31, 2020 Method: Phone call Type: Inbound Duration (min): 2 Outcome: Case discussion Contact Type: Patient advocate Contact Name: Geneva Ny Notes: Daughter called asking about upcoming appointment times and dates. See message cente note. Created By: Aminata Mendieta RN Date: December 22, 2020 Method: Phone call Type: Inbound Duration (min): 2 Outcome: Case discussion Contact Type: Patient Contact Name: MATEO [place] Notes: See case summary note Created By: Aminata Mendieta RN Date: December 22, 2020 Method: Phone call Type: Outbound Duration (min): 3 Outcome: Case discussion Contact Type: Complex daycare managerproject manager finance Name: Aminata Mendieta RN Notes: See message center note. Created By: Aminata Mendieta RN Date: December 22, 2020 Method: Phone call Type: Outbound Duration (min): 5 Outcome: Case discussion Contact Type: Complex daycare managerproject manager finance Name: Aminata Mendieta RN Notes: Called patient regarding messages from Dr. Sifuentes, see message center notes x 2. Created By: Aminata Mendieta RN Date: December 21, 2020 Method: Phone call Type: Outbound Duration (min): 9 Outcome: Case discussion Contact Type: Complex daycare managerproject manager finance Name: Aminata Mendieta RN Notes: See case summary note. Created By: Aminata Mendieta RN Date: December 18, 2020 Method: Phone call Type: Outbound Duration (min): 2 Outcome: Case discussion Contact Type: Patient advocate Contact Name: Megan Geneva Notes: CN let her know that was not in today, dtr states that she thinks pt has enough to get thorugh till Monday. CN instucted her to call on Monday if she doesn't hear from Aminata or myself. Created By: Linda Mcdonald RN Date: December 18, 2020 Method: Phone call Type: Outbound Duration (min): 1 Outcome: Case discussion Contact Type: Medical facility Contact Name: [facility] Notes: They have stiolto 5 mcg samples only, message sent to PCP; Created By: Linda Mcdonald RN Date: December 04, 2020 Method: Phone call Type: Outbound Duration (min): 4 Outcome: Case discussion Contact Type: Complex daycare managerproject manager finance Name: Aminata Mendieta RN Notes: See message center note. Created By: Aminata Mendieta RN Date: December 03, 2020 Method: Phone call Type: Inbound Duration (min): 17 Outcome: Case discussion Contact Type: Patient Contact Name: MATEO [place] Notes: [facility] patient called with concerns, see message center note. Created By: Aminata Mendieta RN Date: November 09, 2020 Method: Phone call Type: Outbound Duration (min): 12 Outcome: Case discussion Contact Type: Complex daycare managerproject manager finance Name: Aminata Mendieta RN Notes: Called [facility] patient for update from ED visit yesterday. See case summary note. Created By: Aminata Mendieta RN Date: October 22, 2020 Method: Phone call Type: Inbound Duration (min): 20 Outcome: Case discussion Contact Type: Patient Contact Name: MATEO [place] Notes: CCM call for October, see case summary note. Created By: Aminata Mendieta RN Date: October 22, 2020 Method: Phone call Type: Outbound Duration (min): -- Outcome: No answer Contact Type: Complex daycare managerproject manager finance Name: Aminata Mendieta RN Notes: Attempted to call daughter regarding sample of inhaler, no answer, voicemail full. Created By: Aminata Mendieta RN Date: October 22, 2020 Method: Phone call Type: Outbound Duration (min): -- Outcome: Left message-voicemail Contact Type: Complex daycare managerproject manager finance Name: Aminata Mendieta RN Notes: Attempted o call patint for October [facility] follow-up. No answer, left message asking ofr a return call. Created By: Aminata Mendieta RN Date: October 21, 2020 Method: Phone call Type: Inbound Duration (min): 3 Outcome: Case discussion Contact Type: Patient advocate Contact Name: Geneva Ny Notes: Daughter called regarding need for Stioloto Respimt inhaler, see case summary note. Created By: Aminata Mendieta RN Date: September 22, 2020 Method: Phone call Type: Inbound Duration (min): 22 Outcome: Case discussion Contact Type: Patient Contact Name: MATEO [place] Notes: [facility] patient called with questions and concerns. See case summary note. Created By: Aminata Mendieta RN Date: September 08, 2020 Method: Phone call Type: Outbound Duration (min): 3 Outcome: Case discussion Contact Type: Complex daycare managerproject manager finance Name: Aminata Mendieta RN Notes: Called [facility] patient regarding outpatient surgery yesterdy, see case summary note. Created By: Aminata Mendieta RN Date: September 02, 2020 Method: Phone call Type: Outbound Duration (min): 19 Outcome: Case discussion Contact Type: Complex daycare managerproject manager finance Name: Aminata Mendieta RN Notes: [facility] monthly follow-up, see case summary note. Created By: Aminata Mendieta RN Date: September 02, 2020 Method: Phone call Type: Outbound Duration (min): -- Outcome: Left message-voicemail Contact Type: Complex daycare managerproject manager finance Name: Aminata Mendieta RN Notes: Patient left message on [facility] phone asking for a return call, called patient , no answer, left message asking for a return call. Created By: Aminata Mendieta RN Date: August 13, 2020 Method: Phone call Type: Outbound Duration (min): 2 Outcome: Case discussion Contact Type: Complex daycare managerproject manager finance Name: Aminata Mendieta RN Notes: Called [facility] patient regarding medication for ringworm, see message center note. Created By: Aminata Mendieta RN Date: August 11, 2020 Method: Phone call Type: Inbound Duration (min): 3 Outcome: Case discussion Contact Type: Complex daycare managerproject manager finance Name: Lexii Casper MA Notes: See message center note regarding ringworm Created By: Aminata Mendieta RN Date: July 29, 2020 Method: Phone call Type: Outbound Duration (min): 21 Outcome: Case discussion Contact Type: Complex daycare managerproject manager finance Name: Aminata Mendieta RN Notes: [facility] monthly follow-up, patient in ED yesterday. See case summary note. Created By: Aminata Mendieta RN Date: July 10, 2020 Method: Phone call Type: Outbound Duration (min): 26 Outcome: Case discussion Contact Type: Complex daycare managerproject manager finance Name: Aminata Mendieta RN Notes: [facility] monthly call. See case summary note. Created By: Aminata Mendieta RN Date: February 27, 2020 Method: Phone call Type: Outbound Duration (min): 21 Outcome: Case discussion Contact Type: academic affairs coordinator Contact Name: Aminata Mendieta RN Notes: [facility] monthly call, See case summary note. Created By: Aminata Mendieta RN Date: December 31, 2019 Method: Phone call Type: Outbound Duration (min): 2 Outcome: Case discussion Contact Type: Complex daycare managerproject manager finance Name: Aminata Mendieta RN Notes: [facility] patient notified of prescriptions sent in, see message center note. Created By: Aminata Mendieta RN Date: December 30, 2019 Method: Phone call Type: Outbound Duration (min): 22 Outcome: Case discussion Contact Type: Complex daycare managerproject manager finance Name: Aminata Mendieta RN Notes: CCM call, see case summary note. Created By: Aminata Mendieta RN Date: December 09, 2019 Method: Phone call Type: Outbound Duration (min): 7 Outcome: Case discussion Contact Type: Complex daycare managerproject manager finance Name: Aminata Mendieta RN Notes: [facility] monthly call, see case summary note. Created By: Aminata Mendieta RN Date: November 28, 2019 Method: Phone call Type: Outbound Duration (min): 1 Outcome: Case discussion Contact Type: Complex daycare managerproject manager finance Name: Teena Zheng Notes: See message center note. Created By: Aminata Mendieta RN Date: November 28, 2019 Method: Phone call Type: Inbound Duration (min): 3 Outcome: Case discussion Contact Type: Patient Contact Name: MATEO [place] Notes: See message center note. Created By: Aminata Mendieta RN Date: November 13, 2019 Method: Phone call Type: Inbound Duration (min): 11 Outcome: Case discussion Contact Type: Complex daycare managerproject manager finance Name: Aminata Mendieta RN Notes: [facility] patient called with concerns, see case summary note. Created By: Aminata Mendieta RN Date: November 05, 2019 Method: Phone call Type: Outbound Duration (min): 8 Outcome: Case discussion Contact Type: Complex daycare managerproject manager finance Name: Aminata Mendieta RN Notes: [facility] call October, see case summary note. Created By: Aminata Mendieta RN Date: October 28, 2019 Method: Phone call Type: Inbound Duration (min): 2 Outcome: Case discussion Contact Type: Complex daycare managerproject manager finance Name: Blanka Swain LPN Notes: Patient returned call regarding increase in medications. see message center note. Created By: Aminata Mendieta RN Date: October 28, 2019 Method: Phone call Type: Outbound Duration (min): 3 Outcome: Case discussion Contact Type: Complex daycare managerproject manager finance Name: Moon Queen CMA Notes: Results given regarding abdominal xray and Dr. Sifuentes recommendations, see message center note. Created By: Aminata Mendieta RN Date: October 21, 2019 Method: Phone call Type: Outbound Duration (min): 8 Outcome: Case discussion Contact Type: Complex daycare managerproject manager finance Name: Aminata Mendieta RN Notes: [facility] October call. See case summary note. Created By: Aminata Mendieta RN Date: September 03, 2019 Method: Phone call Type: Outbound Duration (min): 21 Outcome: Case discussion Contact Type: Complex daycare managerproject manager finance Name: Aminata Mendieta RN Notes: [facility] monthly August call. See case summary call. Created By: Aminata Mendieta RN Date: July 30, 2019 Method: Phone call Type: Outbound Duration (min): 21 Outcome: Case discussion Contact Type: social media managerproject manager finance Name: Aminata Mendieta RN Notes: [facility] May call, see caase summary note. Created By: Aminata Mendieta RN Date: July 09, 2019 Method: Phone call Type: Outbound Duration (min): 17 Outcome: Case discussion Contact Type: academic affairs coordinator Contact Name: Aminata Mendieta RN Notes: CCM bi-weekly call. see case summary note. Created By: Aminata Mendieta RN Date: July 08, 2019 Method: Phone call Type: Outbound Duration (min): -- Outcome: No answer Contact Type: social media managerproject manager finance Name: Aminata Mendieta RN Notes: Attempted to call patient for update on medicaations, no answer, unable to leave voicemail. Created By: Aminata Mendieta RN Date: June 18, 2019 Method: Phone call Type: Outbound Duration (min): -- Outcome: Case discussion Contact Type: social media managerproject manager finance Name: Aminata Mendieta RN Notes: Attempted to callpatietn for bi-weekly CCM call for June, no answer, left message asking for return call. Created By: Aminata Mendieta RN Date: June 04, 2019 Method: Phone call Type: Outbound Duration (min): 13 Outcome: Case discussion Contact Type: social media managerproject manager finance Name: Aminata Mendieta RN Notes: CCM May call, see case summary note. Created By: Aminata Mendieta RN Date: June 04, 2019 Method: Phone call Type: Outbound Duration (min): 1 Outcome: Left message-voicemail Contact Type: academic affairs coordinator Contact Name: Aminata Mendieta RN Notes: CCM May call, no answer, left message asking for return call. Created By: Aminata Mendieta RN Date: May 20, 2019 Method: Phone call Type: Outbound Duration (min): 13 Outcome: Case discussion Contact Type: social media managerproject manager finance Name: Aminata Mendieta RN Notes: CCM May call. see case summary note. Created By: Aminata Mendieta RN Date: April 26, 2019 Method: Phone call Type: Inbound Duration (min): 10 Outcome: Case discussion Contact Type: Patient Contact Name: MATEO [place] Notes: Patient called CN for CCM follow-up. See Case Summary Note. Created By: Brice Stephenson RN Date: April 16, 2019 Method: In-person Type: -- Duration (min): 22 Outcome: Case discussion Contact Type: Patient Contact Name: MATEO [place] Notes: Patient came to primary care office for assistance with medication patient assistance form. See Case Summary note. Created By: Brice Stephenson RN Date: April 16, 2019 Method: Phone call Type: Outbound Duration (min): -- Outcome: Left message-voicemail Contact Type: social media managerproject manager finance Name: Brice Stephenson RN Notes: CN attempted to call patient for CCM follow-up related to assistance with patient drug assistance paperwork completion. Message left with needed information from patient. Asked patient to return call to CN to discuss further. Created By: Brice Stephenson RN Date: April 08, 2019 Method: Phone call Type: Outbound Duration (min): 22 Outcome: Case discussion Contact Type: social media managerproject manager finance Name: Brice Stephenson RN Notes: CN returned call to patient. See Case Summary note. Created By: Brice Stephenson RN Date: April 08, 2019 Method: Phone call Type: Inbound Duration (min): -- Outcome: Case discussion Contact Type: Patient Contact Name: MATEO [place] Notes: Patient called and left message for CN requesting return call. Patient notes she has received paperwork in regards to her refill medication and needs assistance to complete paperwork from PCP office. Asking for return phone call. Created By: Brice Stephenson RN Date: April 08, 2019 Method: Phone call Type: Outbound Duration (min): -- Outcome: No answer Contact Type: social media managerproject manager finance Name: Brice Stephenson RN Notes: CN attempted to return patient's call. No answer. Patient's VM currently noted to be full and unable to leave a message at this time. Created By: Brice Stephenson RN Date: March 11, 2019 Method: Phone call Type: Outbound Duration (min): 5 Outcome: Case discussion Contact Type: social media managerproject manager finance Name: Brice Stephenson RN Notes: CN returned call to patient for CCM follow-up call. See Case Summary note. Created By: Brice Stephenson RN Date: March 10, 2019 Method: Phone call Type: Inbound Duration (min): -- Outcome: Case discussion Contact Type: Patient Contact Name: MATEO [place] Notes: Patient called and left message on CN message system over the weekend. Reports she feels strange but states it is not an emergency. Requesting a call back. Created By: Brice Stephenson RN Date: February 27, 2019 Method: In-person Type: -- Duration (min): 4 Outcome: Case discussion Contact Type: social media managerproject manager finance Name: Brice Stephenson RN Notes: CN returned call to patient after conferring with PCP. Created By: Brice Stephenson RN Date: February 27, 2019 Method: Phone call Type: Inbound Duration (min): 7 Outcome: Case discussion Contact Type: Patient Contact Name: MATEO [place] Notes: Patient called CN about Eye appt and BP concerns, CCM follow-up. See Case Summary note. Created By: Brice Stephenson RN Date: February 20, 2019 Method: Phone call Type: Outbound Duration (min): -- Outcome: Left message-voicemail Contact Type: social media managerproject manager finance Name: Brice Stephenson RN Notes: CN attempted to call patient for CCM follow-up call. No answer. Left message asking for return phone call with patient update. Created By: Brice Stephenson RN Date: February 20, 2019 Method: Phone call Type: Inbound Duration (min): 22 Outcome: Case discussion Contact Type: Patient Contact Name: MATEO [place] Notes: Patient returned call to CN for CCM follow-up call. See Case Summary note. Created By: Brice Stephenson RN Date: February 08, 2019 Method: Phone call Type: Outbound Duration (min): -- Outcome: Left message-voicemail Contact Type: social media managerproject manager finance Name: Brice Stephenson RN Notes: CN attempted to call patient for CCM follow-up. No answer. Left message asking for return call. Created By: Brice Stephenson RN Date: January 03, 2019 Method: Phone call Type: Outbound Duration (min): 67 Outcome: Case discussion Contact Type: social media managerproject manager finance Name: Brice Stephenson RN Notes: CN met with patient for CCM initial intake assessment. See I-view and Case Summary note. Created By: Brice Stephenson RN MEDICATION CONSENT Observed: 03/31/2023 11:45 AM Status: F Source: [facility] [id number] POPULATION HEALTH Observed: 03/08/2023 2:46 PM Status: F Source: [facility] Case Information Case Priority: None Programs: -- Referral Source: Mine Engineer Referral Reason: Disease management Case Type: Chronic [...] 2 puff(s), Inhalation, q4hr, PRN, 11 refills albuterol-ipratropium Inh Lizzeth 3 mL UD, 3 mL, [...] Phone Call Monitoring Consent Agreed to continue call Phone Verification Patient Information Full name, street address and date of verified CM Program Enrollment Written consent completed 01/03/19 12:00:00 Result Name Value Comment HIPPA Verified Type of Contact In person in the office Information Given by Patient CM Preferred Spoken Language Comoran CM Preferred Written Language Swiss Preferred Communication Mode Verbal Ability to Read/Write Able to read, Able to write Preferred Method of Contact Cell Best Time to Visit or Contact 10-1 pm, 1-5 pm Best Day to Visit or Contact No preference Preferred Way to Send PHI Standard mail Lives In Single level home Number in Household 3 Lives with handicapped brother and daughter. 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 Start Date: 2018 Target: - - Status: - - Barriers: - - Comments: - - Intervention Frequency Status Credit Or Loans Officer Use inhaler as prescribed by PCP - - Done - - Start Water aerobic exercises beginning 01/08/19 2 days per week to include water walking - - Done - - Use nebulizer machine as needed for SOB for COPD. - - Progressing - - 10/12/21 Fill Rx for Rescue pack and call CN if starts medications - - Done - - Goal: Will have improvement in lower leg swelling Start Date: 2020 Target: - - Status: - - Barriers: - - Comments: - - Intervention Frequency Status Credit Or Loans Officer Decrease sodium intake to 2000 mg daily, do not use salt shaker. - - Progressing - - Weigh daily, record and notify CN of 3# weight gain in day or %3 over a week. - - Not done - - Keep appointment with Dr. Sifuentes on 10/13/20 at 0920 - - Done - - 06/08/21 Patient is going to try to return to water aerobics once per week, - - Not done - - Keep legs elevated when sitting - - Progressing - - Goal: Reduce frequency of Urinary Tract infections Start Date: 2021 Target: - - Status: - - Barriers: - - Comments: - - Intervention Frequency Status Credit Or Loans Officer Call office at first signs and symptoms of UTI for urinalysis. - - Progressing - - Drink 64 oz of fluids each day to stay hydrated. - - Progressing - - Go to restroom at first sign of urinary urge and not hold. - - Progressing - - See urologist as needed. - - Progressing - - Botox injections for urinary incontinence every 6 months as needed. 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 Start Date: 2018 Target: - - Status: Met Barriers: - - Comments: - - Intervention Frequency Status Credit Or Loans Officer Start water therapy on January 08 and attend every Monday and each week - - Done - - Patient to call Chiropractor to have diapraghm put back in place as needed. - - Progressing - - Goal: Will have relief from constipation Start Date: 2019 Target: - - Status: Met Barriers: - - Comments: - - Intervention Frequency Status Credit Or Loans Officer Take OTC MiraLax 17 gm 1.5 caps BID - - Done - - Follow up with Title Supervisor as needed. - - Done - - Take Trulance 3 mg daily for constipation - - Done - - Right hernia repari surgery scheduled for 09/07/20. - - Done - - Take Ducolax 2 tab a bedtime as directed - - Done - - Progress Note 03/08/23. 20 minutes. 1426. CN called patient for [facility]. CN spoke with patients daughter. She reports patent is doing a little better with anxiety and depression since she started going [facility]. Patients daughter reports she believes her mothers short term memory is becoming more of a problem. She reports her mother refuses to wear CPAP but does wear O2 to keep SPO2 above 90. Patient sees neurology for the pain in her legs. Patients daughter asked if patient could be seen for a manipulation by Dr. Gallardo. CN scheduled. Patients daughter asked if she could have a refill of Triamcinolone cream. CN advised he would send message to PCP. Patients daughter denies any current concerns. 1446. Communication Events Date: March 08, 2023 Method: Phone call Type: Outbound Duration (min): 20 Outcome: Case discussion Contact Type: academic affairs coordinator Contact Name: Dereck Rosario RN Notes: Called for Dec CCM. See case summary note. Created By: Dereck Rosario RN Date: March 08, 2023 Method: Phone call Type: Outbound Duration (min): 1 Outcome: Left message-voicemail Contact Type: academic affairs coordinator Contact Name: Dereck Rosario RN Notes: Called for Dec CCM. Left message asking for return phone call. Created By: Dereck Rosario RN Date: January 13, 2023 Method: Phone call Type: Inbound Duration (min): 10 Outcome: Case discussion Contact Type: Patient Contact Name: MATEO [place] Notes: CCM patient called, see FT summary note. Created By: Aminata Mendieta RN Date: January 12, 2023 Method: Phone call Type: Outbound Duration (min): 10 Outcome: Case discussion Contact Type: Complex daycare managerproject manager finance Name: Aminata Mendieta RN Notes: Called patient for CCM follow-up, spoke with daughter see FT summary note. Created By: Aminata Mendieta RN Date: November 23, 2022 Method: Phone call Type: Outbound Duration (min): 1 Outcome: Left message-voicemail Contact Type: Complex daycare managerproject manager finance Name: Aminata Mendieta RN Notes: Attempted to call daughter cell phone for CCM follow-up, no answer, left message asking for a return call. Created By: Aminata Mendieta RN Date: November 23, 2022 Method: Phone call Type: Outbound Duration (min): 1 Outcome: Left message-voicemail Contact Type: Complex daycare managerproject manager finance Name: Aminata Mendieta RN Notes: Attempted to call patient for CCM, no answer left message asking for a return call. Created By: Aminata Mendieta RN Date: August 31, 2022 Method: Phone call Type: Outbound Duration (min): 17 Outcome: Case discussion Contact Type: Pharmacist Contact Name: Nelli Dhillon PharmD Notes: Medication review with pharmacy. See SOAP note. Created By: Aminata Mendieta RN Date: August 23, 2022 Method: Phone call Type: Outbound Duration (min): 7 Outcome: Case discussion Contact Type: Medical facility Contact Name: Aminata Mendieta Notes: spoke with Iris from Patient expereince, please see FT summary note. Created By: Aminata Mendieta RN Date: August 23, 2022 Method: Phone call Type: Outbound Duration (min): 16 Outcome: Case discussion Contact Type: Complex daycare managerproject manager finance Name: Aminata Mendieta RN Notes: Daughter left 2 messages while CCN on vacation, returned call see FT summary note. Created By: Aminata Mendieta RN Date: August 01, 2022 Method: Phone call Type: Inbound Duration (min): 7 Outcome: Case discussion Contact Type: Patient advocate Contact Name: Genveasara Carusoo Notes: Daughterr called with updates. See FT summary note. Created By: Aminata Mendieta RN Date: July 21, 2022 Method: Phone call Type: Outbound Duration (min): 15 Outcome: Case discussion Contact Type: Complex daycare managerproject manager finance Name: Aminata Mendieta RN Notes: See FT summary note. Created By: Aminata Mendieta RN Date: July 15, 2022 Method: Phone call Type: Outbound Duration (min): 1 Outcome: Left message-voicemail Contact Type: Complex daycare managerproject manager finance Name: Aminata Mendieta RN Notes: Daughter left message at 1030 asking for a return call, called daughter, no answer, left message to call again. Patient was seen by Dr. Mary dougherty in [facility]. Created By: Aminata Mendieta RN Date: June 22, 2022 Method: Phone call Type: Outbound Duration (min): 20 Outcome: Case discussion Contact Type: Complex daycare managerproject manager finance Name: Aminata Mendieta RN Notes: Daughter left message asking for a return call, called patient, spoke with daughter see FT summary note. Created By: Aminata Mendieta RN Date: May 25, 2022 Method: Phone call Type: Inbound Duration (min): 1 Outcome: Case discussion Contact Type: Patient Contact Name: MATEO [place] Notes: Daughter left message that she started Rescue pack and would like a generic refill for Dexilant, see message center note. Created By: Aminata Mendieta RN Date: May 19, 2022 Method: Phone call Type: Inbound Duration (min): 3 Outcome: Case discussion Contact Type: Patient advocate Contact Name: [place] Ny Notes: Daughter called with information for help at hand for Dexilant. see message center note. Created By: Aminata Mendieta RN Date: May 17, 2022 Method: Phone call Type: Inbound Duration (min): 22 Outcome: Case discussion Contact Type: Patient advocate Contact Name: Geneva Ny Notes: Daughter Geneva calls with concerns see message center note. Created By: Aminata Mendieta RN Date: May 10, 2022 Method: Phone call Type: Outbound Duration (min): 10 Outcome: Case discussion Contact Type: Complex daycare managerproject manager finance Name: Aminata Mendieta RN Notes: Daughter left message asking for a return call. Called daughter, see FT summary note. Created By: Aminata Mendieta RN Date: March 25, 2022 Method: Phone call Type: Inbound Duration (min): 10 Outcome: Case discussion Contact Type: Patient Contact Name: MATEO [place] Notes: CCM patient calls with complaints of thrush again, see message center note. Created By: Aminata Mendieta RN Date: March 16, 2022 Method: Phone call Type: Outbound Duration (min): 5 Outcome: Case discussion Contact Type: Complex daycare managerproject manager finance Name: Aminata Mendieta RN Notes: Called daughter back regarding Prednsone prescription. See message center note. Created By: Aminata Mendieta RN Date: March 16, 2022 Method: Phone call Type: Outbound Duration (min): 1 Outcome: Case discussion Contact Type: Complex daycare managerproject manager finance Name: Juani De La Garza MA Notes: XENIA called patient about prescription for Prednisone. Created By: Aminata Mendieta RN Date: March 15, 2022 Method: Phone call Type: Outbound Duration (min): 1 Outcome: Left message-voicemail Contact Type: Complex daycare managerproject manager finance Name: Aminata Mendieta RN Notes: Left message that Pulmonology office should call tomorrow to schedule patient. Created By: Aminata Mendieta RN Date: March 15, 2022 Method: Phone call Type: Outbound Duration (min): 3 Outcome: Case discussion Contact Type: Specialist Contact Name: Aminata Mendieta RN Notes: Called Pulmonology to see about referral for patient, see message center note. Created By: Aminata Mendieta RN Date: March 04, 2022 Method: Phone call Type: Outbound Duration (min): 6 Outcome: Case discussion Contact Type: Complex daycare managerproject manager finance Name: Aminata Mendieta RN Notes: Called [facility] patient for follow-up on thrush, see FT summary note. Created By: Aminata Mendieta RN Date: February 21, 2022 Method: Phone call Type: Inbound Duration (min): 15 Outcome: Case discussion Contact Type: Patient Contact Name: MATEO [place] Notes: [facility] patient called started COPD rescue pack 02/18/22. See FT summary note. Created By: Aminata Mendieta RN Date: February 15, 2022 Method: Phone call Type: Outbound Duration (min): 1 Outcome: Case discussion Contact Type: Complex daycare managerproject manager finance Name: Aminata Mendieta RN Notes: CCM patient called for follow-up and to schedule appointment, no answer, left voicemail asking for a return call. Created By: Aminata Mendieta RN Date: January 24, 2022 Method: Phone call Type: Outbound Duration (min): 11 Outcome: Case discussion Contact Type: Complex daycare managerproject manager finance Name: Aminata Mendieta RN Notes: Called [facility] patient for follow-up. Created By: Aminata Mendieta RN Date: January 13, 2022 Method: In-person Type: -- Duration (min): 7 Outcome: Case discussion Contact Type: Complex daycare managerproject manager finance Name: Aminata Mendieta RN Notes: Patient in office asking for samples of Stiolto Respimat. Created By: Aminata Mendieta RN Date: January 12, 2022 Method: Phone call Type: Outbound Duration (min): 3 Outcome: Case discussion Contact Type: Complex daycare managerproject manager finance Name: Debbi Hammer Notes: See message center note. Created By: Aminata Mendieta RN Date: January 12, 2022 Method: Phone call Type: Inbound Duration (min): 6 Outcome: Case discussion Contact Type: Patient advocate Contact Name: [place] Ny Notes: Daughter called patient started COPD Rescue pack on 01/09/22, see message center note. Created By: Aminata Mendieta RN Date: December 28, 2021 Method: Phone call Type: Inbound Duration (min): 25 Outcome: Case discussion Contact Type: Patient advocate Contact Name: [place] Ny Notes: daughter called with updates and needs for medications. See message center note. Created By: Aminata Mendieta RN Date: November 30, 2021 Method: Phone call Type: Outbound Duration (min): 18 Outcome: Case discussion Contact Type: Complex daycare managerproject manager finance Name: Aminata Mendieta RN Notes: Called [facility] patient for follow-up, see FT summary note. Created By: Aminata Mendieta RN Date: November 23, 2021 Method: Phone call Type: Inbound Duration (min): 5 Outcome: Case discussion Contact Type: Patient advocate Contact Name: -- Notes: Daughter called regarding patient breathing and samples of Stioloto inhaler. See FT summary note. Created By: Aminata Mendieta RN Date: November 02, 2021 Method: Phone call Type: Outbound Duration (min): 1 Outcome: Left message-voicemail Contact Type: Complex daycare managerproject manager finance Name: Aminata Mendieta RN Notes: Left message regarding samples and [facility] phone number and to call if any questions. Created By: Aminata Mendieta RN Date: November 02, 2021 Method: Phone call Type: Outbound Duration (min): 7 Outcome: Case discussion Contact Type: Complex daycare managerproject manager finance Name: -- Notes: CCM follow-up see FT summary note. Created By: Aminata Mendieta RN Date: October 13, 2021 Method: Phone call Type: Outbound Duration (min): 3 Outcome: Case discussion Contact Type: Complex daycare managerproject manager finance Name: Aminata Mendieta RN Notes: Called daughter and explained information regrding [facility] incontinence program. See Ft summary note. Created By: Aminata Mendieta RN Date: October 13, 2021 Method: Phone call Type: Outbound Duration (min): 4 Outcome: Case discussion Contact Type: Vendor Contact Name: Enzo Notes: Called [facility] to see if there was any coverage for incontinence supplies. Medicare does nort cover but they have incontinence program. See FT summary note. Created By: Aminata eMndieta RN Date: October 13, 2021 Method: Phone call Type: Outbound Duration (min): 10 Outcome: Case discussion Contact Type: Complex daycare managerproject manager finance Name: Aminata Mendieta RN Notes: Called CCM patient to confirm cancellation of appointment and schedule to establish with Dr. Gallardo Created By: Aminata Mendieta RN Date: September 30, 2021 Method: Phone call Type: Outbound Duration (min): 4 Outcome: Case discussion Contact Type: Complex daycare managerproject manager finance Name: Aminata Mendieta RN Notes: Called CCM patient for follow-up after leaving ED AMA yesterday. See message center note. Created By: Aminata Mendieta RN Date: September 29, 2021 Method: Phone call Type: Inbound Duration (min): 6 Outcome: Case discussion Contact Type: Patient advocate Contact Name: [place] Carusoo Notes: Patient daughter called patient having chest pain, see message center note. Created By: mAinata Mendieta RN Date: September 23, 2021 Method: Phone call Type: Outbound Duration (min): 6 Outcome: Case discussion Contact Type: Complex daycare managerproject manager finance Name: Aminata Mendieta RN Notes: Called CCM for update on cough, see message center note. Created By: Aminata Mendieta RN Date: September 21, 2021 Method: Phone call Type: Outbound Duration (min): 3 Outcome: Case discussion Contact Type: Complex daycare managerproject manager finance Name: Aminata Mendieta RN Notes: Called patient rescheduled appointment and advised to restart Mucinex and chaeck with pharmacy this afternoon for new prescriptions. See message center note. Created By: Aminata Mendieta RN Date: September 21, 2021 Method: Phone call Type: Outbound Duration (min): 3 Outcome: Case discussion Contact Type: Complex daycare managerproject manager finance Name: Aminata Mendieta RN Notes: Patient could not wait on hold for Telehealth visit. Will speak with Dr. sifuentes and call back with plan of care. Created By: Aminata Mendieta RN Date: September 21, 2021 Method: Phone call Type: Outbound Duration (min): 2 Outcome: Case discussion Contact Type: Complex daycare managerproject manager finance Name: Aminata Mendieta RN Notes: Called patient to schedule appointment per Dr. Sifuentes. See message center note. Created By: Aminata Mendieta RN Date: September 20, 2021 Method: Phone call Type: Outbound Duration (min): 2 Outcome: Case discussion Contact Type: Complex daycare managerproject manager finance Name: Aminata Mendieta RN Notes: Called daughter and explained message sent to Dr. Sifuentes and if patient symptoms worsen please take to [facility], will call with answer. Created By: Aminata Mendieta RN Date: September 20, 2021 Method: Phone call Type: Inbound Duration (min): 1 Outcome: Case discussion Contact Type: Patient advocate Contact Name: Geneva Ny Notes: Daughter left message about productive cough, see message center note. Created By: Aminata Mendieta RN Date: September 09, 2021 Method: Phone call Type: Outbound Duration (min): 25 Outcome: Case discussion Contact Type: Complex daycare managerproject manager finance Name: Aminata Mendieta RN Notes: CCM follow-up, see FT summary note. Created By: Aminata Mendieta RN Date: September 08, 2021 Method: Phone call Type: Outbound Duration (min): -- Outcome: No answer Contact Type: Complex daycare managerproject manager finance Name: Aminata Mendieta RN Notes: Attempted to call daughter to notify of samples available, no answer, no voicemail, Will try again. Created By: Aminata Mendieta RN Date: August 30, 2021 Method: Phone call Type: Inbound Duration (min): 4 Outcome: Case discussion Contact Type: Patient advocate Contact Name: Jovanyclayton averyanant Notes: See message center note regarding samples of Stiolto Created By: Aminata Mendieta RN Date: August 05, 2021 Method: Phone call Type: Outbound Duration (min): 10 Outcome: Case discussion Contact Type: Complex daycare managerproject manager finance Name: Aminata Mendieta RN Notes: CCM follow-up, see FT summary note. Created By: Aminata Mendieta RN Date: July 28, 2021 Method: Phone call Type: Outbound Duration (min): 5 Outcome: Case discussion Contact Type: Complex daycare managerproject manager finance Name: Aminata Mendieta RN Notes: Called daughter back, see message center note. Created By: Aminata Mendieta RN Date: July 28, 2021 Method: Phone call Type: Inbound Duration (min): 1 Outcome: Case discussion Contact Type: Patient advocate Contact Name: Geneva Ny Notes: Daughter left message asking for a return call. Created By: Aminata Mendieta RN Date: July 19, 2021 Method: Phone call Type: Outbound Duration (min): 5 Outcome: Case discussion Contact Type: Complex daycare managerproject manager finance Name: Aminata Mendieta RN Notes: Called CCM patient regarding cough, see message center note. Created By: Aminata Mendieta RN Date: July 16, 2021 Method: Phone call Type: Inbound Duration (min): 11 Outcome: Case discussion Contact Type: Patient Contact Name: MATEO [place] Notes: Patient returened call with concerns, see message center note. Created By: Aminata Mendieta RN Date: July 16, 2021 Method: Phone call Type: Outbound Duration (min): -- Outcome: Left message-voicemail Contact Type: Complex daycare managerproject manager finance Name: Aminata Mendieta RN Notes: Attempted to call patint for CCM follow-up, no answer, left message asking for a return call. Created By: Aminata Mendieta RN Date: June 30, 2021 Method: Phone call Type: Outbound Duration (min): 22 Outcome: Case discussion Contact Type: Complex daycare managerproject manager finance Name: Aminata Mendieta RN Notes: CCM monthly follow-up. See FT summary note. Created By: Aminata Mendieta RN Date: June 22, 2021 Method: Phone call Type: Outbound Duration (min): 3 Outcome: Case discussion Contact Type: Complex daycare managerproject manager finance Name: Aminata Mendieta RN Notes: Called CCM patient for bi-weekly follow-up. See FT summary note. Created By: Aminata Mendieta RN Date: June 14, 2021 Method: Phone call Type: Outbound Duration (min): 1 Outcome: Left message-voicemail Contact Type: Complex daycare managerproject manager finance Name: Aminata Mendieta RN Notes: Left message explaining prescription had refill at [facility] and to call if any problems. Created By: Aminata Mendieta RN Date: June 14, 2021 Method: Phone call Type: Inbound Duration (min): 1 Outcome: Case discussion Contact Type: Patient advocate Contact Name: Geneva Ny Notes: Left message asking for a refill of Albuterol and return call. Created By: Aminata Mendieta RN Date: June 08, 2021 Method: Phone call Type: Outbound Duration (min): 15 Outcome: Case discussion Contact Type: Complex daycare managerproject manager finance Name: Aminata Mendieta RN Notes: Called CCM patient for follow-up after Botox injections. See FT summary note. Created By: Aminata Mendieta RN Date: May 24, 2021 Method: Phone call Type: Inbound Duration (min): 13 Outcome: Case discussion Contact Type: Patient advocate Contact Name: Geneva Ny Notes: Daughter of CCM patient called regarding a technicians and trades workers referral. SEe FT summary note. Created By: Aminata Mendieta RN Date: May 10, 2021 Method: Phone call Type: Outbound Duration (min): 5 Outcome: Case discussion Contact Type: Complex daycare managerproject manager finance Name: Aminata Mendieta RN Notes: CCm follow-up, see FT summary note. Created By: Aminata Mendieta RN Date: April 19, 2021 Method: Phone call Type: Outbound Duration (min): 1 Outcome: Case discussion Contact Type: Complex daycare managerproject manager finance Name: Aminata Mendieta RN Notes: Called daughter regrding samples of Stioloto Respimat samples. See message center note. Created By: Aminata Mendieta RN Date: April 16, 2021 Method: Phone call Type: Outbound Duration (min): 14 Outcome: Case discussion Contact Type: Complex daycare managerproject manager finance Name: Aminata Mendieta RN Notes: Called CCM patient for follow-up, see case summary note. Created By: Aminata Mendieta RN Date: March 31, 2021 Method: Phone call Type: Outbound Duration (min): 6 Outcome: Case discussion Contact Type: Complex daycare managerproject manager finance Name: Aminata Mendieta RN Notes: CCM follow-up see summary note. Created By: Aminata Mendieta RN Date: March 24, 2021 Method: Phone call Type: Outbound Duration (min): 1 Outcome: Left message-voicemail Contact Type: Complex daycare managerproject manager finance Name: Aminata Mendieta RN Notes: Attempted to return patient call, no answer, left message. See message cente rnote. Created By: Aminata Mendieta RN Date: March 24, 2021 Method: Phone call Type: Inbound Duration (min): 1 Outcome: Case discussion Contact Type: Patient advocate Contact Name: Geneva Averycuso Notes: Patient daughter left message asking for a call back regarding ATB. Created By: Aminata Mendieta RN Date: March 23, 2021 Method: Phone call Type: Outbound Duration (min): 4 Outcome: Case discussion Contact Type: Complex daycare managerproject manager finance Name: Aminata Mendieta RN Notes: Called [facility] patient for follow-up on ED visit from 03/20/21. See summary note. Created By: Aminata Mendieta RN Date: March 19, 2021 Method: Phone call Type: Outbound Duration (min): 11 Outcome: Case discussion Contact Type: Complex daycare managerproject manager finance Name: Aminata Mendieta RN Notes: Called CCM patient for follow-up. See summary note. Created By: Aminata Mendieta RN Date: March 01, 2021 Method: Phone call Type: Outbound Duration (min): 2 Outcome: Case discussion Contact Type: Complex daycare managerproject manager finance Name: Aminata Mendieta RN Notes: Called daguther regarding inhaler samples, see messsage center note. Created By: Aminata Mendieta RN Date: February 24, 2021 Method: Phone call Type: Inbound Duration (min): 5 Outcome: Case discussion Contact Type: Patient advocate Contact Name: Geneva Anant Notes: See message center note. Created By: Aminata Mendieta RN Date: February 23, 2021 Method: Phone call Type: Outbound Duration (min): 3 Outcome: Case discussion Contact Type: Complex daycare managerproject manager finance Name: Aminata Mendieta RN Notes: See message center note. Created By: Aminata Mendieta RN Date: February 22, 2021 Method: Phone call Type: Inbound Duration (min): 2 Outcome: Case discussion Contact Type: Patient advocate Contact Name: Geneva Ny Notes: Daughter left detailed message see message note. Created By: Aminata Mendieta RN Date: February 22, 2021 Method: Phone call Type: Inbound Duration (min): 20 Outcome: Case discussion Contact Type: Patient advocate Contact Name: Geneva Ny Notes: Patient daughter called see case summary note. Created By: Aminata Mendieta RN Date: December 31, 2020 Method: Phone call Type: Inbound Duration (min): 2 Outcome: Case discussion Contact Type: Patient advocate Contact Name: Geneva Ny Notes: Daughter called asking about upcoming appointment times and dates. See message cente note. Created By: Aminata Mendieta RN Date: December 22, 2020 Method: Phone call Type: Inbound Duration (min): 2 Outcome: Case discussion Contact Type: Patient Contact Name: MATEO [place] Notes: See case summary note Created By: Aminata Mendieta RN Date: December 22, 2020 Method: Phone call Type: Outbound Duration (min): 3 Outcome: Case discussion Contact Type: Complex daycare managerproject manager finance Name: Aminata Mendieta RN Notes: See message center note. Created By: Aminata Mendieta RN Date: December 22, 2020 Method: Phone call Type: Outbound Duration (min): 5 Outcome: Case discussion Contact Type: Complex daycare managerproject manager finance Name: Aminata Mendieta RN Notes: Called patient regarding messages from Dr. Sifuentes, see message center notes x 2. Created By: Aminata Mendieta RN Date: December 21, 2020 Method: Phone call Type: Outbound Duration (min): 9 Outcome: Case discussion Contact Type: Complex daycare managerproject manager finance Name: Aminata Mendieta RN Notes: See case summary note. Created By: Aminata Mendieta RN Date: December 18, 2020 Method: Phone call Type: Outbound Duration (min): 2 Outcome: Case discussion Contact Type: Patient advocate Contact Name: Megan Franco Notes: CN let her know that was not in today, dtr states that she thinks pt has enough to get thorugh till Monday. CN instucted her to call on Monday if she doesn't hear from Aminata or myself. Created By: Linda Mcdonald RN Date: December 18, 2020 Method: Phone call Type: Outbound Duration (min): 1 Outcome: Case discussion Contact Type: Medical facility Contact Name: [facility] Notes: They have stiolto 5 mcg samples only, message sent to PCP; Created By: Linda Mcdonald RN Date: December 04, 2020 Method: Phone call Type: Outbound Duration (min): 4 Outcome: Case discussion Contact Type: Complex daycare managerproject manager finance Name: Aminata Mendieta RN Notes: See message center note. Created By: Aminata Mendieta RN Date: December 03, 2020 Method: Phone call Type: Inbound Duration (min): 17 Outcome: Case discussion Contact Type: Patient Contact Name: MATEO [place] Notes: [facility] patient called with concerns, see message center note. Created By: Aminata Mendieta RN Date: November 09, 2020 Method: Phone call Type: Outbound Duration (min): 12 Outcome: Case discussion Contact Type: Complex daycare managerproject manager finance Name: Aminata Mendieta RN Notes: Called [facility] patient for update from ED visit yesterday. See case summary note. Created By: Aminata Mendieta RN Date: October 22, 2020 Method: Phone call Type: Inbound Duration (min): 20 Outcome: Case discussion Contact Type: Patient Contact Name: MATEO [place] Notes: CCM call for October, see case summary note. Created By: Aminata Mendieta RN Date: October 22, 2020 Method: Phone call Type: Outbound Duration (min): -- Outcome: No answer Contact Type: Complex daycare managerproject manager finance Name: Aminata Mendieta RN Notes: Attempted to call daughter regarding sample of inhaler, no answer, voicemail full. Created By: Aminata Mendieta RN Date: October 22, 2020 Method: Phone call Type: Outbound Duration (min): -- Outcome: Left message-voicemail Contact Type: Complex daycare managerproject manager finance Name: Aminata Mendieta RN Notes: Attempted o call patint for October [facility] follow-up. No answer, left message asking ofr a return call. Created By: Aminata Mendieta RN Date: October 21, 2020 Method: Phone call Type: Inbound Duration (min): 3 Outcome: Case discussion Contact Type: Patient advocate Contact Name: Geneva Ny Notes: Daughter called regarding need for Stioloto Respimt inhaler, see case summary note. Created By: Aminata Mendieta RN Date: September 22, 2020 Method: Phone call Type: Inbound Duration (min): 22 Outcome: Case discussion Contact Type: Patient Contact Name: MATEO [place] Notes: [facility] patient called with questions and concerns. See case summary note. Created By: Aminata Mendieta RN Date: September 08, 2020 Method: Phone call Type: Outbound Duration (min): 3 Outcome: Case discussion Contact Type: Complex daycare managerproject manager finance Name: Aminata Mendieta RN Notes: Called [facility] patient regarding outpatient surgery yesterdy, see case summary note. Created By: Aminata Mendieta RN Date: September 02, 2020 Method: Phone call Type: Outbound Duration (min): 19 Outcome: Case discussion Contact Type: Complex daycare managerproject manager finance Name: Aminata Mendieta RN Notes: [facility] monthly follow-up, see case summary note. Created By: Aminata Mendieta RN Date: September 02, 2020 Method: Phone call Type: Outbound Duration (min): -- Outcome: Left message-voicemail Contact Type: Complex daycare managerproject manager finance Name: Aminata Mendieta RN Notes: Patient left message on [facility] phone asking for a return call, called patient , no answer, left message asking for a return call. Created By: Aminata Mendieta RN Date: August 13, 2020 Method: Phone call Type: Outbound Duration (min): 2 Outcome: Case discussion Contact Type: Complex daycare managerproject manager finance Name: Aminata Mendieta RN Notes: Called [facility] patient regarding medication for ringworm, see message center note. Created By: Aminata Mendieat RN Date: August 11, 2020 Method: Phone call Type: Inbound Duration (min): 3 Outcome: Case discussion Contact Type: Complex daycare managerproject manager finance Name: Lexii Casper MA Notes: See message center note regarding ringworm Created By: Aminata Mendieta RN Date: July 29, 2020 Method: Phone call Type: Outbound Duration (min): 21 Outcome: Case discussion Contact Type: Complex daycare managerproject manager finance Name: Aminata Mendieta RN Notes: [facility] monthly follow-up, patient in ED yesterday. See case summary note. Created By: Aminata Mendieta RN Date: July 10, 2020 Method: Phone call Type: Outbound Duration (min): 26 Outcome: Case discussion Contact Type: Complex daycare managerproject manager finance Name: Aminata Mendieta RN Notes: [facility] monthly call. See case summary note. Created By: Aminata Mendieta RN Date: February 27, 2020 Method: Phone call Type: Outbound Duration (min): 21 Outcome: Case discussion Contact Type: academic affairs coordinator Contact Name: Aminata Mendieta RN Notes: [facility] monthly call, See case summary note. Created By: Aminata Mendieta RN Date: December 31, 2019 Method: Phone call Type: Outbound Duration (min): 2 Outcome: Case discussion Contact Type: Complex daycare managerproject manager finance Name: Aminata Mendieta RN Notes: [facility] patient notified of prescriptions sent in, see message center note. Created By: Aminata Mendieta RN Date: December 30, 2019 Method: Phone call Type: Outbound Duration (min): 22 Outcome: Case discussion Contact Type: Complex daycare managerproject manager finance Name: Aminata Mendieta RN Notes: CCM call, see case summary note. Created By: Aminata Mendieta RN Date: December 09, 2019 Method: Phone call Type: Outbound Duration (min): 7 Outcome: Case discussion Contact Type: Complex daycare managerproject manager finance Name: Aminata Mendieta RN Notes: [facility] monthly call, see case summary note. Created By: Aminata Mendieta RN Date: November 28, 2019 Method: Phone call Type: Outbound Duration (min): 1 Outcome: Case discussion Contact Type: Complex daycare managerproject manager finance Name: Teena Zheng Notes: See message center note. Created By: Aminata Mendieta RN Date: November 28, 2019 Method: Phone call Type: Inbound Duration (min): 3 Outcome: Case discussion Contact Type: Patient Contact Name: ANANT MATEO G Notes: See message center note. Created By: Aminata Mendieta RN Date: November 13, 2019 Method: Phone call Type: Inbound Duration (min): 11 Outcome: Case discussion Contact Type: Complex daycare managerproject manager finance Name: Aminata Mendieta RN Notes: [facility] patient called with concerns, see case summary note. Created By: Aminata Mendieta RN Date: November 05, 2019 Method: Phone call Type: Outbound Duration (min): 8 Outcome: Case discussion Contact Type: Complex daycare managerproject manager finance Name: Aminata Mendieta RN Notes: [facility] call October, see case summary note. Created By: Aminata Mendieta RN Date: October 28, 2019 Method: Phone call Type: Inbound Duration (min): 2 Outcome: Case discussion Contact Type: Complex daycare managerproject manager finance Name: Blanka Swain LPN Notes: Patient returned call regarding increase in medications. see message center note. Created By: Aminata Mednieta RN Date: October 28, 2019 Method: Phone call Type: Outbound Duration (min): 3 Outcome: Case discussion Contact Type: Complex daycare managerproject manager finance Name: Case Moon URIAS Notes: Results given regarding abdominal xray and Dr. Sifuentes recommendations, see message center note. Created By: Aminata Mendieta RN Date: October 21, 2019 Method: Phone call Type: Outbound Duration (min): 8 Outcome: Case discussion Contact Type: Complex daycare managerproject manager finance Name: Aminata Mendieta RN Notes: [facility] October call. See case summary note. Created By: Aminata Mendieta RN Date: September 03, 2019 Method: Phone call Type: Outbound Duration (min): 21 Outcome: Case discussion Contact Type: Complex daycare managerproject manager finance Name: Aminata Mendieta RN Notes: [facility] monthly August call. See case summary call. Created By: Aminata Mendieta RN Date: July 30, 2019 Method: Phone call Type: Outbound Duration (min): 21 Outcome: Case discussion Contact Type: social media managerproject manager finance Name: Aminata Mendieta RN Notes: [facility] May call, see caase summary note. Created By: Aminata Mendieta RN Date: July 09, 2019 Method: Phone call Type: Outbound Duration (min): 17 Outcome: Case discussion Contact Type: academic affairs coordinator Contact Name: Aminata Mendieta RN Notes: [facility] bi-weekly call. see case summary note. Created By: Aminata Mendieta RN Date: July 08, 2019 Method: Phone call Type: Outbound Duration (min): -- Outcome: No answer Contact Type: social media managerproject manager finance Name: Aminata Mendieta RN Notes: Attempted to call patient for update on medicaations, no answer, unable to leave voicemail. Created By: Aminata Mendieta RN Date: June 18, 2019 Method: Phone call Type: Outbound Duration (min): -- Outcome: Case discussion Contact Type: social media managerproject manager finance Name: Aminata Mendieta RN Notes[facility], no answer, left message asking for return call. Created By: Aminata Mendieta RN Date: June 04, 2019 Method: Phone call Type: Outbound Duration (min): 13 Outcome: Case discussion Contact Type: social media managerproject manager finance Name: Aminata Mendieta RN Notes: CCM May call, see case summary note. Created By: Aminata Mendieta RN Date: June 04, 2019 Method: Phone call Type: Outbound Duration (min): 1 Outcome: Left message-voicemail Contact Type: academic affairs coordinator Contact Name: Aminata Mendieta RN Notes: CCM May call, no answer, left message asking for return call. Created By: Aminata Mendieta RN Date: May 20, 2019 Method: Phone call Type: Outbound Duration (min): 13 Outcome: Case discussion Contact Type: social media managerproject manager finance Name: Aminata Mendieta RN Notes: CCM May call. see case summary note. Created By: Aminata Mendieta RN Date: April 26, 2019 Method: Phone call Type: Inbound Duration (min): 10 Outcome: Case discussion Contact Type: Patient Contact Name: MATEO [place] Notes: Patient called CN for CCM follow-up. See Case Summary Note. Created By: Brice Stephenson RN Date: April 16, 2019 Method: In-person Type: -- Duration (min): 22 Outcome: Case discussion Contact Type: Patient Contact Name: MATEO [place] Notes: Patient came to primary care office for assistance with medication patient assistance form. See Case Summary note. Created By: Brice Stephenson RN Date: April 16, 2019 Method: Phone call Type: Outbound Duration (min): -- Outcome: Left message-voicemail Contact Type: social media managerproject manager finance Name: Brice Stephenson RN Notes: CN attempted to call patient for CCM follow-up related to assistance with patient drug assistance paperwork completion. Message left with needed information from patient. Asked patient to return call to CN to discuss further. Created By: Brice Stephenson RN Date: April 08, 2019 Method: Phone call Type: Outbound Duration (min): 22 Outcome: Case discussion Contact Type: social media managerproject manager finance Name: Brice Stephenson RN Notes: CN returned call to patient. See Case Summary note. Created By: Brice Stephenson RN Date: April 08, 2019 Method: Phone call Type: Inbound Duration (min): -- Outcome: Case discussion Contact Type: Patient Contact Name: MATEO [place] Notes: Patient called and left message for CN requesting return call. Patient notes she has received paperwork in regards to her refill medication and needs assistance to complete paperwork from PCP office. Asking for return phone call. Created By: Brice Stephenson RN Date: April 08, 2019 Method: Phone call Type: Outbound Duration (min): -- Outcome: No answer Contact Type: social media managerproject manager finance Name: Brice Stephenson RN Notes: CN attempted to return patient's call. No answer. Patient's VM currently noted to be full and unable to leave a message at this time. Created By: Brice Stephenson RN Date: March 11, 2019 Method: Phone call Type: Outbound Duration (min): 5 Outcome: Case discussion Contact Type: social media managerproject manager finance Name: Brice Stephenson RN Notes: CN returned call to patient for CCM follow-up call. See Case Summary note. Created By: Brice Stephenson RN Date: March 10, 2019 Method: Phone call Type: Inbound Duration (min): -- Outcome: Case discussion Contact Type: Patient Contact Name: MATEO [place] Notes: Patient called and left message on CN message system over the weekend. Reports she feels strange but states it is not an emergency. Requesting a call back. Created By: Brice Stephenson RN Date: February 27, 2019 Method: In-person Type: -- Duration (min): 4 Outcome: Case discussion Contact Type: social media managerproject manager finance Name: Brice Stephenson RN Notes: CN returned call to patient after conferring with PCP. Created By: Brice Stephenson RN Date: February 27, 2019 Method: Phone call Type: Inbound Duration (min): 7 Outcome: Case discussion Contact Type: Patient Contact Name: MATEO [place] Notes: Patient called CN about Eye appt and BP concerns, CCM follow-up. See Case Summary note. Created By: Brice Stephenson RN Date: February 20, 2019 Method: Phone call Type: Outbound Duration (min): -- Outcome: Left message-voicemail Contact Type: social media managerproject manager finance Name: Brice Stephenson RN Notes: CN attempted to call patient for CCM follow-up call. No answer. Left message asking for return phone call with patient update. Created By: Brice Stephenson RN Date: February 20, 2019 Method: Phone call Type: Inbound Duration (min): 22 Outcome: Case discussion Contact Type: Patient Contact Name: ANANT MATEO Todd Notes: Patient returned call to CN for CCM follow-up call. See Case Summary note. Created By: Brice Stephenson RN Date: February 08, 2019 Method: Phone call Type: Outbound Duration (min): -- Outcome: Left message-voicemail Contact Type: social media managerproject manager finance Name: Brice Stephenson RN Notes: CN attempted to call patient for CCM follow-up. No answer. Left message asking for return call. Created By: Brice Stephenson RN Date: January 03, 2019 Method: Phone call Type: Outbound Duration (min): 67 Outcome: Case discussion Contact Type: social media managerproject manager finance Name: Brice Stephenson RN Notes: CN met with patient for CCM initial intake assessment. See I-view and Case Summary note. Created By: Brice Stephenson RN ALLERGIES DATE TYPE / CODE NAME / CODE REACTION SEVERITY SOURCE /Herlinda (SNOMED CT) sulfamethoxazole Swelling [facility] /265759131 (SNOMED CT) aspirin Nausea [facility] OT/092850976 (SNOMED CT) Adhesive Bandage Rash~Itching [facility] Food Allergy/4142 12404(SNOMED CT) Chocolate 87940200 Severe (Severity Modifier) (Qualifier Value) [facility] BELGICA358308946 (SNOMED CT) penicillins Rash~Itching [facility] /291975011 (SNOMED CT) iodinated radiocontrast dyes 354545877~hives [facility] /Herlinda (SNOMED CT) iodine Rash [facility] OT/188436827 (SNOMED CT) Unknown [facility] ENCOUNTERS ADMIT/DISCHARGE ACCOUNT NUMBER ADMITTING ENCOUNTER CLASS LOCATION SOURCE 07/25/2024/07/26/19 25 [id number] Ambulatory [facility] [place]FM [facility] 07/25/2024/07/26/19 25 [id number] Ambulatory [facility] [place]:FM [facility]: Exam 4 [facility] 07/19/2024/07/20/19 [id number] Marilu Cornell Ambulatory [facility]:FT PMCRoom: DISCH [facility] 07/02/2024/07/03/19 [id number] Ambulatory [facility]:FT OPS [facility] 06/24/2024/06/25/19 [id number] Marilu Cornell Ambulatory [facility]Build[facility] g:FT PMCRoom: DISCH [facility] 06/03/2024/06/04/19 25 [id number] Ambulatory [facility]:FT OPS [facility] 05/17/2024/05/18/19 [id number] Marilu Cornell Ambulatory [facility] g:FT PMCRoom: DISCH [facility] 05/11/2024/06/11/19 25 [id number] Ambulatory [facility] [place]FM [facility] 04/17/2024 [id number] Emergency [facility] g:EDRoom: [facility] 04/17/2024/04/17/19 25 [id number] Emergency [facility]Build[facility] g:EDRoom: ED-12Bed: CD:[id number] [facility] 04/17/2024 [id number] Emergency [facility] g:EDRoom: ED-12Bed: CD:[id number] [facility] 04/17/2024 [id number] Emergency [facility]Buildin g:EDRoom: ED-12Bed: CD:[id number] [facility] 04/13/2024/05/10/19 25 [id number] Ambulatory [facility] [place]FM [facility] 04/09/2024/04/09/19 25 [id number] Ambulatory [facility] [place]:FM [facility]: Exam 4 [facility] 03/05/2024/03/05/20 24 [id number] Ambulatory [facility] [place]:FM [facility]: Exam 2 [facility] 01/29/2024/01/29/20 24 [id number] Ambulatory [facility] [place]:FM [facility] 01/15/2024 [id number] Ambulatory [facility] [place]:FM [facility] 01/15/2024/01/15/20 24 [id number] Marilu Cornell Ambulatory [facility]:FT [facility] 01/12/2024/02/09/20 24 [id number] Ambulatory [facility] [place]FM [facility] 01/09/2024/01/09/20 24 [id number] Ambulatory [facility] [place]:FM [facility]: Exam 4 [facility] 12/26/2023/12/26/19 24 [id number] Marilu Cornell Ambulatory [facility] g:FT [facility] 12/21/2023/12/21/19 24 [id number] Ambulatory [facility] g:FT [facility] 12/15/2023/12/15/19 24 [id number] Ambulatory [facility] [place]FM [facility] 12/04/2023/12/04/19 24 [id number] Ambulatory Building:NO MS SWS POD [facility] EPIC 12/04/2023/12/04/19 24 [id number] Marilu Cornell Ambulatory [facility] g:FT [facility] 11/24/2023/11/24/19 24 [id number] Ambulatory [facility] [place]:FM [facility] 11/21/2023 [id number] Ambulatory [facility] [place]:FM [facility] 11/12/2023/12/10/19 24 [id number] Ambulatory [facility] [place]:FM [facility] 08/28/2023/08/28/19 24 [id number] Ambulatory Building:NO MS SWS POD [facility] EPIC 08/22/2023/08/22/19 24 [id number] Ambulatory [facility] [place]:FM [facility] 08/31/2022 [id number] [facility] 12/19/2018 [id number] Dakotah Gallardo Ambulatory CD:[id number]: CD:[id number] 25 [facility] 11/05/2018 [id number] Ambulatory CD:[id number] 67Building: CD:[id number] 79 [facility] PAYERS ENCOUNTER GUARANTOR PAYER SUBSCRIBER SOURCE 07/25/2024 MATEO AVERYCUSODOB: [facility] [place]Tel: ~(41 [phone] (HP) Primary Insurance:MEDICAREPol icy Number: [id number] Date:6350-28-20QF [address] [place] [address]NN: MATEO Todd [facility] 07/25/2024 Secondary Insurance:HelpMe[employer] Insurance CompanyPolicy Number: [id number] Date: [place] [address]HE: MATEO Todd [facility] 07/25/2024 MATEO AVERYCUSODOB: [facility] [place]Tel: ~([phone] (HP) Primary Insurance:MEDICAREPol icy Number: [id number] Date:3513-57-69GF [address] [place] [address]PD: [facility]ATEO Todd [facility] 07/25/2024 Secondary Insurance:[employer] Insurance CompanyPolicy Number: [id number] Date: [place] [address]FL: [facility]O [facility] 07/19/2024 MATEO Todd MANCUSODOB: [facility] [place]Tel: ~(41 [phone] (HP) Primary Insurance:MEDICAREPol icy Number: [id number] Date:6723-14-21AY [address] [place] [address]MC: MATEO PATEL [facility] 07/19/2024 Secondary Insurance:Miscellane [employer] Insurance CompanyPolicy Number: [id number] Date: [place] [address]CV: MATEO PATEL [facility] 07/02/2024 MATEO AVERYCUSODOB: [id number] [facility] 191Tel: ~(41 [phone] (HP) Primary Insurance:MEDICAREPol icy Number: [id number] Date:2053-31-95EX [address] [place] [address]BN: MATEO PATEL [facility] 07/02/2024 Secondary Insurance:Miscellaneo [employer] Insurance CompanyPolicy Number: [id number] Date: [place] [address]QG: MATEO PATEL [facility] 06/24/2024 MATEO AVERYCUSODOB: [id number] [facility] 191Tel: ~(41 [phone] (HP) Primary Insurance:MEDICAREPol icy Number: [id number] Date:9920-04-88YB [address] [place] [address]DI: MATEO PATEL [facility] 06/24/2024 Secondary Insurance:Miscellaneo [employer] Insurance CompanyPolicy Number: [id number] Date:[id number] [place] [address]ZO: MATEO PATEL [facility] 06/03/2024 MATEO AVERYCUSODOB: [facility] [address]Tel: ~([phone] (HP) Primary Insurance:MEDICAREPol icy Number: [id number] Date:7237-22-27UU [address] [place] [address]QN: MATEO PATEL [facility] 06/03/2024 Secondary Insurance:[facility] Insurance CompanyPolicy Number: [id number] Date: [facility] [place] [address]NM: MATEO Todd ASHERANABELL [facility] 05/17/2024 MATEO AVERYCUSODOB: [place] [address]Tel: ~([phone] (HP) Primary Insurance:MEDICAREPol icy Number: [id number] Date:2573-99-24QX [address] [place] [address]AB: MATEO PATEL [facility] 05/17/2024 Secondary Insurance:[facility] Insurance CompanyPolicy Number: [id number] Date: [facility] [place] [address]RB: MATEO PATEL [facility] 05/11/2024 MATEO AVERYCUSODOB: [facility] [address]Tel: ~([phone] (HP) Primary Insurance:MEDICAREPol icy Number: [id number] Date:6050-12-69WD [address], [place] [address]QD: MATEO PATEL [facility] 05/11/2024 Secondary Insurance:[facility] Insurance CompanyPolicy Number: [id number] Date: [place] [address]IV: MATEO PATEL [facility] 04/17/2024 MATEO Todd MANCUSODOB: [facility] [address]Tel: ~(41 [phone] (HP) Primary Insurance:MEDICAREPol icy Number: [id number] Date:9113-27-79BQ [address] [place] [address]MQ: MATEO Todd ASHERANABELL [facility] 04/17/2024 Secondary Insurance:[facility] Insurance CompanyPolicy Number: [id number] Date: [place] [address]NF: MATEO Todd ASHERANABELL [facility] 04/17/2024 MATEO Todd MANCUSODOB: [place] [address]Tel: ~([phone] (HP) Primary Insurance:MEDICAREPol icy Number: [id number] Date:5477-15-20XF [address] [place] [address]YJ: MATEO Todd ASHERANABELL [facility] 04/17/2024 Secondary Insurance:[facility] Insurance CompanyPolicy Number: [id number] Date: [place] [address]UD: MATEO Todd ASHERANABELL [facility] 04/17/2024 MATEO Todd MANCUSODOB: [facility] [address]Tel: ~([phone] (HP) Primary Insurance:MEDICAREPol icy Number: [id number] Date:9104-10-59IV [address], [place] [address]YS: MATEO PATEL [facility] 04/17/2024 Secondary Insurance:[facility] Insurance CompanyPolicy Number: [id number] Date: [place] [address]RT: MATEO PATEL [facility] 04/17/2024 MATEO Todd MANCUSODOB: [id number] [facility] [address]Tel: ~(41 [phone] (HP) Primary Insurance:MEDICAREPol icy Number: [id number] Date:2062-32-60GW [address], [place] [address]WI: MATEO PATEL [facility] 04/17/2024 Secondary Insurance:[facility] Insurance CompanyPolicy Number: [id number] Date: [place] [address]PA: MATEO PATEL [facility] 04/13/2024 MATEO AVERYCUSODOB: [id number] [facility] [address]Tel: ~(41 [phone] (HP) Primary Insurance:MEDICAREPol icy Number: [id number] Date:6098-04-47ED [address], [place] [address]HR: MATEO PATEL [facility] 04/13/2024 Secondary Insurance:[facility] [employer]arest[employer] Insurance CompanyPolicy Number: [id number] Date: [place] [address]IT: M[facility]O G [facility]OUNPar[facility] 04/09/2024 MATEO Todd MANCUSODOB: [facility] [address]Tel: ~([phone] (HP) Primary Insurance:MEDICAREPol icy Number: [id number] Date:0497-89-25ZO [address] [address]UB: MATEO PATEL [facility] 04/09/2024 Secondary Insurance:[facility] Insurance CompanyPolicy Number: [id number] Date: [place] [address]VO: MATEO Todd ASHERANABELL [facility] 03/05/2024 MATEO AVERYCUSODOB: [facility] [address]Tel: ~([phone] (HP) Primary Insurance:MEDICAREPol icy Number: [id number] Date:1380-71-75NJ [address]DPFMDGXLL, [place] [address]SN: MATEO Todd ASHERANABELL [facility] 03/05/2024 Secondary Insurance:Portfoliacellane [employer] Insurance CompanyPolicy Number: [id number] Date: [facility] [place] [address]MF: MATEO PATEL [facility] 01/29/2024 MATEO Todd MANCUSODOB: [facility] [address]Tel: ~(41 [phone] (HP) Primary Insurance:MEDICAREPol icy Number: [id number] Date:5578-05-61MI [address] [address]TPJYNFPTN, [place] [address]DN: MATEO PATEL [facility] 01/29/2024 Secondary Insurance:Portfoliacellane [employer] Insurance CompanyPolicy Number: [id number] Date:[id number] [place] [address]FG: MATEO PATEL [facility] 01/15/2024 MATEO AVERYCUSODOB: [facility] [address]Tel: ~([phone] (HP) Primary Insurance:MEDICAREPol icy Number: [id number] Date:9444-07-66BD [address] [place] [address]DP: MATEO PATEL [facility] 01/15/2024 Secondary Insurance:[facility] [facility] [employer] Insurance CompanyPolicy Number: [id number] Date:3020-00-20180[address] [place] [address]PI: MATEO PATEL [facility] 01/15/2024 MATEO AVERYCUSODOB: [place] [address]Tel: ~([phone] (HP) Primary Insurance:MEDICAREPol icy Number: [id number] Date:7310-95-20OH [address] [place] [address]EQ: MATEO PATEL [facility] 01/15/2024 Secondary Insurance:[facility] [employer] Insurance CompanyPolicy Number: [id number] Date: [facility] [place] [address]AH: MATEO PATEL [facility] 01/12/2024 MATEO AVERYCUSODOB: [facility] [address]Tel: ~([phone] (HP) Primary Insurance:MEDICAREPol icy Number: [id number] Date:8134-39-87VB [address] [place] [address]QQ: MATEO PATEL [facility] 01/12/2024 Secondary Insurance:Miscellane us Insurance CompanyPolicy Number: [id number] Date:7257-86-5[address] [place] [address]DP: MATEO PATEL [facility] 01/09/2024 MATEO Todd MANCUSODOB: [facility] [address]Tel: ~([phone] (HP) Primary Insurance:MEDICAREPol icy Number: [id number] Date:9182-39-42QM [address]PGYANBBQ, [place] [address]XI: MATEO PATEL [facility] 01/09/2024 Secondary Insurance:[facility] Insurance CompanyPolicy Number: [id number] Date: [facility] [place] [address]EI: MATEO PATEL [facility] 12/26/2023 MATEO Todd MANCUSODOB: [facility] [address]Tel: ~(41 [phone] (HP) Primary Insurance:MEDICAREPol icy Number: [id number] Date:0498-49-37PF [address]FVZKBIHWO, [place] [address]PD: MATEO PATEL [facility] 12/26/2023 Secondary Insurance:[facility] [employer] Insurance CompanyPolicy Number: [id number] Date: [place] [address]KU: MATEO PATEL [facility] 12/21/2023 MATEO Todd MANCUSODOB: [facility] [address]Tel: ~([phone] (HP) Primary Insurance:MEDICAREPol icy Number: [id number] Date:7373-30-44OY [address] [address]NT: MATEO PATEL [facility] 12/21/2023 Secondary Insurance:[facility] Insurance CompanyPolicy Number: [id number] Date: [facility] [place] [address]HZ: MATEO Todd ASHERANABELL [facility] 12/15/2023 MATEO AVERYCUSODOB: [place] [address]Tel: ~([phone] (HP) Primary Insurance:MEDICAREPol icy Number: [id number] Date:7805-20-70OV [address] [address]WN: MATEO PATEL [facility] 12/15/2023 Secondary Insurance:[facility] Insurance CompanyPolicy Number: [id number] Date: [facility] [place] [address]MK: MATEO PATEL [facility] 12/04/2023 MATEO AVERYCUSODOB: [address] [address]Gfy: (HP) Primary Insurance:MEDICAREPol icy Number: [id number] Date:0940-75-70Vxat Name:Medicare MATEO VAERYCUSODOB: [id number] [address] [address] [facility] 12/04/2023 Secondary Insurance:[facility]Policy Number: [id number] Date:2017-03-13 MATEO AVERYCUSODOB: [id number] [address] [address] [facility] 12/04/2023 MATEO AVERYCUSODOB: [facility] [address]Tel: ~(41 [phone] (HP) Primary Insurance:MEDICAREPol icy Number: [id number] Date:2567-61-25RS [address] [place] [address]UM: MATEO PATEL [facility] 12/04/2023 Secondary Insurance:[facility] Insurance CompanyPolicy Number: [id number] Date: [place] [address]SR: MATEO Todd ASHERANABELL [facility] 11/24/2023 MATEO AVERYCUSODOB: [place] [address]Tel: ~([phone] (HP) Primary Insurance:MEDICAREPol icy Number: [id number] Date:2267-13-38LV [address] [place] [address]VK: MATEO Todd ASHERANABELL [facility] 11/24/2023 Secondary Insurance:[facility] Insurance CompanyPolicy Number: [id number] Date: [facility] [place] [address]TH: MATEO PATEL [facility] 11/21/2023 MATEO AVERYCUSODOB: [facility] [address]Tel: ~(41 [phone] (HP) Primary Insurance:MEDICAREPol icy Number: [id number] Date:3599-47-90NV [address], [place] [address]XF: MATEO PATEL [facility] 11/21/2023 Secondary Insurance:[facility] Insurance CompanyPolicy Number: [id number] Date: [place] [address]XO: MATEO PATEL [facility] 11/12/2023 MATEO Todd MANCUSODOB: [facility] 191Tel: ~(41 [phone] (HP) Primary Insurance:MEDICAREPol icy Number: [id number] Date:7128-14-76SK [address] [place] [address]SC: MATEO PATEL [facility] 11/12/2023 Secondary Insurance:[facility] Insurance CompanyPolicy Number: [id number] Date: [place] [address]ML: MATEO PATEL [facility] 08/28/2023 MATEO AVERYCUSODOB: [address] [address]Frk: (HP) Primary Insurance:MEDICAREPol icy Number: [id number] Date:7517-92-98Evzl Name:Medicare MATEO Todd MANCUSODOB: [id number] [address] [facility] EPIC 08/28/2023 Secondary Insurance:[facility] [facility]Policy Number: [id number] Date:2017-03-13 MATEO AVERYCUSODOB: [id number] [address] [address] [facility] EPIC 08/22/2023 MATEO Todd MANCUSODOB: [facility] 191Tel: ~(41 [phone] (HP) Primary Insurance:MEDICAREPol icy Number: [id number] Date:6944-41-84GQ [address] [address]WU: MATEO [facility] 08/22/2023 Secondary Insurance:[employer] Insurance CompanyPolicy Number: [id number] Date: [place] [address]HI: MATEO G [facility]
--- OUTSIDE RECORDS SUMMARY | 2024-07-25 23:59 | XMS_ITS | Continuity of Care Document ---
Author Organization [facility] [place] Address [address] [place] [address] Support Name Relationship Address Phone GENEVA HERRERA A parent Unknown Unavaila ble JAVIER, GENEVA A parent Unknown Unavaila ble JAVIER, TYSON J child Unknown Unavailab le JAVIER, TYSON Law child Unknown Unavailab le JAVIER, GENEVA A parent Unknown Unavaila ble JAVIER, TYSON Law child Unknown Unavailab le JAVIER, TYSON J parent Unknown Unavailab le JAVIER, GENEVA A parent Unknown Unavaila ble JAVIER, TYSON Law parent Unknown Unavailab le JAVIER, GENEVA A parent Unknown Unavaila ble JAVIER, TYSON J parent Unknown Unavailab le JAVIER, TYSON J parent Unknown Unavailab le JAVIER, GENEVA A parent Unknown Unavaila ble JAVIER, TYSON J parent Unknown Unavailab le JAVIER, TYSON J child Unknown Unavailab le JAVIER, GENEVA A parent Unknown Unavaila ble JAVIER, GENEVA A parent Unknown Unavaila ble JAVIER, GENEVA A parent Unknown Unavaila ble JAVIER, TYSON J child Unknown Unavailab le AJVIER, GENEVA A parent Unknown Unavaila ble JAVIER, GENEVA A parent Unknown Unavaila ble JAVIER, GENEVA A parent Unknown Unavaila ble JAVIER, GENEVA A parent Unknown Unavaila ble JAVIER, TYSON J parent Unknown Unavailab le JAVIER, TYSON J parent Unknown Unavailab le JAVIER, GENEVA A parent Unknown Unavaila ble AJVIER, TYSON J parent Unknown Unavailab le JAVIER, TYSON J parent Unknown Unavailab le JAVIER, TYSON J parent Unknown Unavailab le JAVIER, GENEVA A parent Unknown Unavaila ble JAVIER, TYSON J child Unknown Unavailab le JAVIER, GENEVA A parent Unknown Unavaila ble JAVIER, TYSON J child Unknown Unavailab le JAVIER, GENEVA A parent Unknown Unavaila ble JAVIER, TYSON J parent Unknown Unavailab le JAVIER, TYSON J child Unknown Unavailab le JAVIER, GENEVA A parent Unknown Unavaila ble JAVIER, TYSON J child Unknown Unavailab le JAVIER, TYSON J parent Unknown Unavailab le JAVIER, GENEVA A parent Unknown Unavaila ble JAVIER, TYSON parent Unknown Unavailable JAVIER, TYSON J parent Unknown Unavailab le JAVIER, TYSON J parent Unknown Unavailab le JAVIER, GENEVA A parent Unknown Unavaila ble JAVIER, GENEVA A child Unknown Unavaila ble JAVIER, GENEVA A parent Unknown Unavaila ble JAVIER, GENEVA A parent Unknown Unavaila ble Care Team Providers Care Braze Operator Name Role Phone Dakotah Gallardo Primary Care Physician Unavail able Encounter FT_AMBFIN [id number] Date(s): 07/25/24 - 07/25/24 [facility] [address] [place] [id number] Encounter Diagnosis Resting tremor(Discharge Diagnosis) - 07/25/24 Chronic low back pain(Discharge Diagnosis) - 07/25/24 Adult BMI 32.0-32.9 kg/sq m(Discharge Diagnosis) - 07/25/24 Spinal stenosis of lumbar region(Discharge Diagnosis) - 07/25/24 Other chronic pain(Discharge Diagnosis) - 07/25/24 Discharge Disposition: Home (Routine DC) Attending Physician: Dakotah Gallardo DO Encounter Type: Clinic Allergies, Adverse Reactions, Alerts Substance Criticality Severity Reaction Reaction Severity Status sulfamethoxazole Swelling Act fany aspirin Nausea Active Adhesive Bandage Itching Rash Active Chocolate High criticality Severe Anaphylaxis A ctive penicillins Itching Rash Active iodinated radiocontrast dyes 1 hives Unknown Active 1gave benadryl last time and did ok Assessment and Plan Future Appointments Appointment Date:08/09/2024 10:15:00 AM Scheduled Provider:Marilu Cornell PA-C Location:[facility] Appointment Type:Pain Management - Follow Up (FT) Appointment Date:02/03/2025 11:00:00 AM Scheduled Provider: Location:[facility] [place] Appointment Type: Medicare Wellness Subsequent Functional Status 07/25/24 Symptomatic After Exposure to Contagion No Symptomatic After Travel High-Risk Area No Droplet, Contact Isolation Verification N/A Airborne,Contact Isolation Verification N/A Immunizations Given and Recorded Vaccine Date Status Refusal Reason SARS-CoV-2 (COVID-19) mRNA BNT-162b2 vax 1 01/18/24 Recorded SARS-CoV-2 (COVID-19) mRNA BNT-162b2 vax 01/13/21 Given diphtheria/pertussis, acel/tetanus adult 01/18/24 Recorded influenza virus vaccine, inactivated 11/24/23 Give n influenza virus vaccine, inactivated 2 01/09/23 Gi marsha influenza virus vaccine, inactivated 01/18/22 Give n influenza virus vaccine, inactivated 12/09/20 Give n influenza virus vaccine, inactivated 12/27/19 Give n influenza virus vaccine, inactivated 12/18/18 Give n influenza virus vaccine, inactivated 01/09/18 Elian rded influenza virus vaccine, inactivated 12/08/16 Elian rded influenza virus vaccine, inactivated 12/17/15 Elian rded zoster vaccine, inactivated 05/22/23 Recorded zoster vaccine, inactivated 02/06/23 Recorded zoster vaccine live 3 02/06/23 Recorded SARS-CoV-2 (COVID-19) [id number].[id number] 01/18/22 Given SARS-CoV-2 (COVID-19) mRNA-1273 vaccine 05/18/20 R ecorded SARS-CoV-2 (COVID-19) mRNA-1273 vaccine 4 05/18/20 Recorded pneumococcal 13-valent vaccine 03/29/17 Recorded pneumococcal 23-valent vaccine 01/21/14 Recorded pneumococcal 23-valent vaccine 12/16/13 Recorded pneumococcal 23-valent vaccine 01/04/08 Recorded Not Given Vaccine Date Status Refusal Reason influenza virus vaccine, inactivated 01/13/22 Not Given Refused by parent, g uardian, or patient - reschedule 1Result Comment: [facility] 2Early/Late Reason: Early/Late Reason: System Down 3Result Comment: Zoster Recombinant per [facility] 4Result Comment: Patrice & Patrice vaccine administered with [facility] dept ImpactSIIS scanned with date Problem List Condition Confirmation Course Effective Dates Status Health Status Informant Abdominal weakness Confirmed Active Stooped posture Confirmed Active Abnormal urinalysis Confirmed Resolved Patient has healthcare proxy and living will Confirmed Active Frozen shoulder Confirmed Active 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 Confirmed Active Thoracic aorta atherosclerosis Confirmed Active Pain in back Confirmed Resolved Bilateral hearing loss Confirmed Active Body mass index (BMI) of 31.0-31.9 in adult Confirmed Resolved Bronchitis with bronchospasm Confirmed Resolved Cervical radiculopathy Confirmed Resolved Somatic dysfunction of cervical region Confirmed Active Chest pain Confirmed Resolved Chronic constipation Confirmed Active Enrolled in chronic care management Confirmed Active Chronic respiratory failure with hypoxia 1 Confirmed Active Stage 3a chronic kidney disease (CKD) 2 Confirmed Active Chronic low back pain Confirmed Active Stroke 3 Confirmed Resolved DDD (degenerative disc disease), cervical Confirmed Active Generalized osteoarthritis Confirmed Active Dizziness Confirmed Resolved Wears hearing aid in both ears Confirmed Active WINTERS (dyspnea on exertion) Confirmed Resolved Leg edema Confirmed Resolved Elevated diaphragm Confirmed Active Former smoker Confirmed Active GERD (gastroesophageal reflux disease) Confirmed Active Abdominal pain, generalized Confirmed Resolved S/P knee replacement Confirmed Active Hernia of abdominal wall Confirmed Resolved Right hip pain Confirmed Resolved History of stroke Confirmed Active History of UTI Confirmed Resolved Dependent for transportation Confirmed Active HTN (hypertension) Confirmed Active 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 Confirmed Active Mild cognitive impairment 5 Confirmed Active Mixed incontinence Confirmed Active Incontinence without sensory awareness Confirmed Active Frequent urination Confirmed Resolved Insomnia Confirmed Active Irritable bowel syndrome with predominant constipation Confirmed Active Lumbar radiculopathy, right Confirmed Active Obesity due to excess calories Confirmed Active Severe obstructive sleep apnea Confirmed Active OAB (overactive bladder) Confirmed Active Emphysema/COPD Confirmed Active Diaphragm paralysis Confirmed Active Exposure to second hand smoke Confirmed Resolved Screening mammogram, encounter for Confirmed Resolved Peripheral neuropathy Confirmed Active 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 Confirmed Resolved Major depressive disorder, recurrent, mild 6 Confirmed Active Resting tremor Confirmed Active RLS (restless legs syndrome) Confirmed Active Rib pain on right side Confirmed Resolved Pain of right sacroiliac joint Confirmed Active Shoulder pain Confirmed Active Somatic dysfunction of abdominal region Confirmed Active Somatic dysfunction of lower extremities Confirmed Active Somatic dysfunction of lumbar region Confirmed Active Somatic dysfunction of rib cage region Confirmed Active Somatic dysfunction of sacral spine Confirmed Active Somatic dysfunction of thoracic region Confirmed Active Spasm of lumbar paraspinous muscle Confirmed Active Spigelian hernia Confirmed Active Spinal stenosis of lumbar region Confirmed Active Edema Confirmed Active Tobacco use, continuous Confirmed Active patient Tremor Confirmed Active Other urethral stricture, female Confirmed Active Urinary urgency Confirmed Resolved 1added per 06/26/2023 query response. 2added per 06/26/2023 query response. 3left arm is weaker then right 4linked HTN and CKD per [facility] policy. 5noted in 04/24/2023 Neurology Consult Note page 1. added per [facility] policy. 6added per 06/26/2023 query response. Procedures Procedure Date Related Diagnosis Body Site Status L5-S1 CLARITZA 07/02/24 Completed L4-S1 TFESI 1 06/03/24 Completed Left Shoulder Injection 01/15/24 C ompleted Bilateral L4/5 Transforminal epidural steroid injection 12/21/23 Completed Right sacroiliac joint injection 2 07/04/23 Completed Injection given 2023 [facility] ed Right TFESI L4/L5 L5/S1 4 08/23/22 Completed Right SIJ 5 06/06/22 Completed Cystoscopy/Botox 200 06/07/21 Comp leted Hernia repair 09/07/20 Completed Injection of therapeutic sub stance into bladder wall 08/03/20 Completed Injection of sacroiliac join t using fluoroscopic guidance 6 06/08/20 Complete d Colonoscopy 11/22/19 Completed Injection of therapeutic sub stance into bladder wall 09/09/19 Completed Cataract extraction left eye 04/17/19 Completed cysto botox 12/03/18 Completed Cystoscopy 12/03/18 Completed left total knee arthroplasty 08/29/16 Completed Appendectomy Completed Back Surgery Completed Bowel obstruction Complet ed Breast reduction Complete d CE - Cataract extraction Completed Corns and callus Complete d mole removal 7 Completed Tubal ligation Completed 1L4-S1 TFESI 2100% relief 3given by pain management 4R L4/L5 L5/S1 90% relief 5R SIJ 90% relief for couple days 6Right SIJ 50% relief 7face under nose Vital Signs Most recent to oldest [Reference Range]: 1 Peripheral Pulse Rate [60-100 bpm] 85 bp m (07/25/24 4:56 PM) Blood Pressure [89-139/59-89 mmHg] 110/6 0mmHg (07/25/24 4:56 PM) Blood Pressure Location Left arm (07/25/24 4:56 PM) SpO2 [89 %] 92 % (07/25/24 4:56 PM) Social History Social History Type Response Smoking Status Former smoker, quit more than 30 days ago;Never; Type: Cigarettes; Previous treatment: None; Concerns about tobacco use in household: No; Total pack years: 50; Started at age: 18.0; Stopped at age: 50; entered on: 01/09/24 Sex Female Sex Representation Female (finding) Implantable Device List Procedure Provider Procedure Date Device Type Site HERNIA REPAIR VENTRAL ADULT Star JARRETT MD 09/07/20 Non Biological Abdomen Device Identifier Serial Number Lot or Batch Number Manufacturing Date Expiration Date Distinct Identification Code MRI Safety Implantable Status Assigning Authority Unknown Unknown [id number] Unknown 08/07/24 Unknown Unknown Active Unknown Hospital Discharge Instructions Follow Up Care 07/22/2024 09:18:15 With:Paulina AGUAYO, Dakotah Law, GIOVANNY, PED Address: [address] [facility] [address] [address] [place] [address] [id number] When:1 month Comments:OMT PRN??- 40 min slotI have increased cyclobenzaprine to twice a day??Continue percocet three times a day??Continue lyrica twice a day prescribed by pain managementI have referred you to neurology to review your resting tremorI have referred you to pain management at [facility] for a second o renny??-----To go instructions (for follow up):On the day of manipulation, I strongly encourage you??to to drink more water to help flush your system after today's treatmentWork on using your core muscles more when standing and sitting, and especially when leaning away from your centerline or whenlifting thingsThis may take some concentration and work initially but it will eventually become more natural to youWork on shoulder retraction exercisesFor patients who can tolerate anti-inflammatories and/or tylenol, those medications can help provide some comfort while you work on optimizing functionGetting adequate rest is important for managing musculoskeletal painF/u 1 month or PRN Goals Reduce frequency of Urinary Tract infections Sta rt Date:03/23/21 End Date: Status:Met Progression:Not Met Will have improvement in lower leg swelling Star t Date:09/22/20 End Date: Status:Met Progression:Not Met Will have relief from constipation Start Date: End Date: Status:Met Progression:Met Evaluate Options for hearing aids Start Date: End Date: Status:Met Progression:Met Evaluate areas to have added emotional support S tart Date:01/03/19 End Date: Status:Met Progression:Met Reduce exacerbations of COPD , will understand benefits to daily treatment of COPD. Start Date:01/03/19 End Date: Status:Met Progression:Not Met Improve pain management for hernia, generalized muscle and joint pain and paralytic diapraghm. Start Date:01/03/19 End Date: Status:Met Progression:Met Patient Care team information Care Team Personnel Name: Reyes MEJIAS MD Position: FT Physician Member Role: Urologist Address: [address] [facility] [address] [address]- Telecom: Name: Dakotah Gallardo DO Position: FT Ambulatory - Primary Care Provider? Member Role: Primary Care Physician Address: [address] [facility] [address] [place] [address] Name: JEZ VALDEZ MD Position: FT Physician Member Role: Special Shopper Address: [address] [place], [place] [address] Telecom: Name: NICK GUERRIER JR, DO Member Role: Cyber Incident Handler Address: [address] [facility] [address] [place], [place] [address] Telecom: [phone] Care Team Related Persons Name: JAVIERGNEEVA A Name: JAVIER GENEVA A Name: JAVIER GENEVA A Name: JAVIER GENEVA A Name: JAVIER GENEVA A Name: JAVIER, GENEVA A Name: JAVIER, GENEVA A Name: JAVIER, GENEVA A Name: JAVIER GENEVA A Name: GENEVA HERRERA A Name: TYSON HERRERA Name: TYSON HERRERA Name: TYSON HERRERA Name: TYSON HERRERA Name: TYSON HERRERA Name: TYSON HERRERA Name: TYSON HERRERA Name: TYSON HERRERA Name: TYSON HERRERA Name: TYSON HERRERA Insurance Providers Guarantor name: MATEO Todd JAVIER Health Plan Information #: 2 Payer: [employer] Member Number: [id number] Policy Number: NA Group Number: [id number] Health Plan Information #: 1 Payer: MEDICARE Member Number: [id number] Policy Number: NA Group Number: A & B
--- OUTSIDE RECORDS SUMMARY | 2024-07-25 23:59 | XMS_ITS | Continuity of Care Document ---
Author Organization [facility] [place] Address [address] [place] [address] Support Name Relationship Address Phone GENEVA HERRERA [...] Unknown Unavaila ble Care Team Providers Care Key Person Name Role Phone Dakotah Gallardo Primary Care Physician Unavail able Encounter FT_AMBFIN [id number] Date(s): 07/25/24 - 07/25/24 [facility] [address] [place], [place] [address] Discharge Disposition: Home (Routine DC) Attending Physician: [...] Date:08/09/2024 10:15:00 AM Scheduled Provider:Marilu Cornell PA-C [facility] Appoint[facility] Type:Pain Management - Follow Up (FT) Appointment Date:02/03/2025 11:00:00 AM Scheduled Provider: Location:[facility] Appointment Type:FM Medicare Wellness Subsequent Immunizations Given and Recorded Vaccine Date Status [...] vaccine live 3 02/06/23 Recorded SARS-CoV-2 (COVID-19) [id number].[id number] 01/18/22 Given SARS-CoV-2 (COVID-19) mRNA-1273 vaccine 05/18/20 [...] Comment: Patrice & Patrice vaccine administered with [facility] dept ImpactSIIS scanned with date Problem List [...] 12/21/23 Completed Right sacroiliac joint injection 2 4/23/24 Completed Injection given 2023 Complet ed Right TFESI L4/L5 L5/S1 4 08/23/22 [...] 6Right SIJ 50% relief 7face under nose Social History Social History Type Response Smoking [...] Safety Implantable Status Assigning Authority Unknown Unknown [id number] Unknown 08/07/24 Unknown Unknown Active Unknown Goals Reduce frequency of Urinary Tract infections [...] Physician Member Role: Urologist Address: [address] [facility] [address] [facility] [address] [place] [address]- Telecom: Name: Dakotah Gallardo DO Position: FT Ambulatory - Primary Care Provider? Member Role: Primary Care Physician Address: [address] [facility] [address] [place] [address] Name: JEZ VALDEZ MD Position: FT Physician Member Role: Habitat Management Coordinator Address: [address] [place], [place] [address] Telecom: Name: NICK GUERRIER JR, DO Member Role: Cause Analyst Address: [address] [facility] [address] [place], [place] [address] Telecom: [phone] Care Team Related Persons Name: GENEVA HERRERA A Name: JAVIERANDIGENEVA A Name: JAVIERANDIGENEVA Lois Name: JAVIER GENEVA A Name: JAVIER GENEVA [...] MATEO Todd JAVIER Health Plan Information #: 1 Payer: MEDICARE Member Number: [id number] Policy Number: NA Group Number: A & B Health Plan Information #: 2 Payer: [employer] Member Number: [id number] Policy Number: NA Group [facility]
[2024-08-05 09:36] VITALS: BP 117/69; PULSE 90; TEMP 36.3; O2SAT 87; BMI 32.9
--- OUTSIDE RECORDS SUMMARY | 2024-08-05 09:47 | XMS_ITS | Clinical Summary ---
Author Organization [facility] Address [address] [place] [address] Care Team Providers Care Receiving Supervisor Name Role Phone Dakotah Gallardo Primary Care Provider Allergies Active Allergy Reactions Criticality Noted Date Comments Aspirin GI intolerance 01/09/2006 Chocolate Flavoring Agent (Non-Screening) Swelling 01/02/2023 Iodine Rash Low 01/09/2006 Penicillins Itching,Rash,Swelling Low 01/09/2006 Sulfa Antibiotics Swelling 01/09/2006 Medications cephalexin (Keflex) 500 MG capsuleIndicatio ns:History of total left knee replacement Take 30-60 mins before dental appointment with food 4 capsule 3 3 Active amLODIPine (Norvasc) 5 MG tablet Take 5 mg by mouth in the morning. 3 Active clotrimazole (Mycelex) 10 MG evangelist TAKE 1 LOZENGE BY MOUTH 5 TIMES A DAY FOR 7 DAYS 3 Active doxycycline (Monodox) 100 MG capsule Take 100 mg by mouth in the morning and 100 mg before bedtime. 2 Active gabapentin (Neurontin) 100 MG capsule Take 300 mg by mouth in the morning and 300 mg before bedtime. 3 Active melatonin 3 MG tablet 1 (one) time each day at the same time. Active naloxone (Narcan) 4 mg/0.1 mL nasal spray Administer 4 mg into affected nostril(s). 3 Active omeprazole (PriLOSEC) [address] capsule Take 20 mg by mouth in the morning. Active Percocet 5-325 MG tablet Take by mouth. 3 Active tiotropium-oloda terol (Stiolto Respimat) 2.5-2.5 MCG/ACT aerosol solution inhaler = 2 puff(s), Inhalation, q24hr, # 2 EA, Refills(s) 0, samples given to patient (Rx) 3 Active traMADol (Ultram) 50 MG tablet See Instructions, 1/2 to 1 tab po bid prn severe pain, # 12 tab(s), Refills(s) 0, Pharmacy: [facility]/pharmacy #[id number], 168, cm, 07/11/22 15:36:00 EDT, Height/Length Dosing, 90, kg, 07/11/22 15:36:00 EDT, Weight Dosing 3 Active clindamycin (Cleocin) 300 MG capsuleIndicatio ns:History of total left knee replacement 2 tabs PO once 30-60 mins before dental procedure with food 2 capsule 3 4 Active Active Problems No known active problems Family History Medical History Relation Name Comments Hyperlipidemia Brother Hypertension Brother Parkinsonism Father Pneumonia Father COPD Mother Colon cancer Mother Hypertension Mother Throat cancer Mother Thyroid disease Mother Relation Name Status Comments Brother Father Mother Social History Tobacco Use Types Packs/Day Years Used Date Smoking Tobacco: Former Cigarettes Q uit: 2004 Smokeless Tobacco: Former Tobacco Cessation:Counseling Given: Not Answered Alcohol Use Standard Drinks/Week Comments Yes 0 (1 standard drink = 0.6 oz pur e alcohol) caffeine yes Comments Unknown Sex and Gender Information Value Date Recorded Sex Assigned at Not on file Legal Sex Female 7:17 PM EDT Gender Identity Not on file Sexual Orientation Not on file Last Filed Vital Signs Vital Sign Reading Time Taken Comments Blood Pressure 116/65 08/22/2017 12:00 PM EDT Pulse - - Temperature - - Respiratory Rate - - Oxygen Saturation - - Inhaled Oxygen Concentration - - Weight 88.9 kg (196 lb) 04/19/2022 12:00 PM EST Height 162.6 cm (5' 4 ) 04/19/2022 12:00 PM EST Body Mass Index 33.64 04/19/2022 12:00 PM EST Plan of Treatment Health Maintenance Due Date Last Done Comments Pneumococcal Vaccine: 65+ Years Completed 03/29/2017, 01/21/2014, 01/21/2014, Additional history exists Influenza Vaccine Completed 11/24/2023, , 01/18/2022, Additional history exists Insurance MEDICARE [employer] [facility] Care Teams Receiving Supervisor Relationship Specialty Start Date End Date Dakotah Gallardo DO [address] [place] [address] [address] [place] [address] PCP - General 10/07/22
--- OUTSIDE RECORDS SUMMARY | 2024-08-05 09:47 | XMS_ITS | Clinical Summary ---
Author Organization [facility] tem Address [id number] [address] [place] [address] Care Team Providers Care Emergency Room Physician Name Role Phone Unavailable Primary Care Provider Unavailabl e Social History Tobacco Use Types Packs/Day Years Used Date Smoking Tobacco: Never Assessed Childcare Answer Date Recorded Childcare Unknown 08/22/2018 Employment Answer Date Recorded Employment Unknown 08/22/2018 Comments Unknown Sex and Gender Information Value Date Recorded Sex Assigned at Not on file Legal Sex Female 8:48 PM EST Gender Identity Not on file Sexual Orientation Not on file Last Filed Vital Signs Vital Sign Reading Time Taken Comments Blood Pressure 131/67 07/01/2015 6:15 PM EDT Pulse 82 07/01/2015 6:15 PM EDT Temperature - - Respiratory Rate - - Oxygen Saturation - - Inhaled Oxygen Concentration - - Weight - - Height - - Body Mass Index - - Plan of Treatment Not on file Medical Devices Not on file Advance Directives Documents on File Type Date Recorded Patient 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
--- OUTSIDE RECORDS SUMMARY | 2024-08-05 09:48 | XMS_ITS | Encounter Summary ---
Author Organization [facility] Address [address] [place], [place] [id number] Care Team Providers Care Site Acquisition Manager Name Role Phone Zayda Dakotah Baker DO Primary Care Provider +1- [phone] Paulina BAKER DO, Robert James Unavailable +1- [phone] Source Comments In the event this information is protected by the Federal Confidentiality of Alcohol and Drug AbusePatient Records regulations: The Federal rules restrict any use of the information to criminally investigate or prosecute any alcohol or drug abuse patient.[facility] Reason for Referral * Consult, Test, Treat (Routine) - Authorized Specialty Diagnoses / Procedures Referred By Juan Carlos recinos Referred To Contact Pain Management Diagnoses Spinal stenosis of lumbar region, unspecified whether neurogenic claudication present Spasm of lumbar paraspinous muscle Procedures CONSULT TO PAIN MGT OFFICE/OUTPATIENT [facility] 60 MINUTES Dakotah Gallardo II, DO [address] [address] [place] [address] Phone: tel: fax: Referral ID Status Reason Start Date Expiration Date Visits Requested Visits Authorized [id number] Authorized PCP Requested Referral 08/02/2024 08/02/2025 1 1 Encounter Details Date Type Department Care Team (Late st Contact Info) Description 08/02/2024 Transcribe Orders Referring Physician [address] [place] [address] Dakotah Gallardo II, DO [address] [facility] [address] [address] Spinal stenosis of lumbar region, unspecified whether neurogenic claudication present (Primary Dx); Spasm of lumbar paraspinous muscle Social History Tobacco Use Types Packs/Day Years Used Date Smoking Tobacco: Former Cigarettes 0.8 35 0 03/13/1965 - 03/13/2000 Alcohol Use Standard Drinks/Week Comments Yes 0 (1 standard drink = 0.6 oz pur e alcohol) ocassionally Comments No Sex and Gender Information Value Date Recorded Sex Assigned at Not on file Legal Sex Female 8:05 AM EST Gender Identity Not on file Sexual Orientation Not on file 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 Not on file Not on file documented as of this encounter Plan of Treatment Not on file documented as of this encounter Visit Diagnoses Diagnosis Spinal stenosis of lumbar region, unspecified whether neurogenic claudication present- Primary Spasm of lumbar paraspinous muscle Other symptoms referable to back documented in this encounter Care Teams Site Acquisition Manager Relationship Specialty [place] [id number] [place] [address] PCP - General 01/10/06 Dakotah Gallardo II, DO [address] [place] [address] Family Medicine 08/02/24 documented as of this encounter
--- OUTSIDE RECORDS SUMMARY | 2024-08-05 09:48 | XMS_ITS | Clinical Summary ---
Author Organization [facility] Address [address] [place] [address] Phone Care Team Providers Care Pneumatic Tester Mechanic Name Role Phone Aide Ball MD Primary Care Provider + Social History Tobacco Use Types Packs/Day Years Used Date Smoking Tobacco: Never Assessed Comments Unknown Sex and Gender Information Value Date Recorded Sex Assigned at Not on file Legal Sex Female 4:08 PM EST Gender Identity Not on file Sexual Orientation Not on file Last Filed Vital Signs Vital Sign Reading Time Taken Comments Blood Pressure - - Pulse - - Temperature - - Respiratory Rate - - Oxygen Saturation - - Inhaled Oxygen Concentration - - Weight 89.4 kg (197 lb) 11/04/2020 8:07 AM EDT Height 168.9 cm (5' 6.5 ) 11/04/2020 8:07 AM EDT Body Mass Index 31.32 11/04/2020 8:07 AM EDT Plan of Treatment Not on file Care Teams Pneumatic Tester Mechanic Relationship Specialty Start Date End Date Aide Ball MD [address] [place] [address] [place] [address] PCP - General 06/22/18
--- OUTSIDE RECORDS SUMMARY | 2024-08-05 09:48 | XMS_ITS | Clinical Summary ---
Author Organization [facility] Address [address] [place] [address] Care Team Providers Care Distance Education Coordinator Name Role Phone Zayda Dakotah Baker DO Primary Care Provider +1- [phone] Paulina BAKER DO, Robert James Unavailable +1- [phone] Allergies Active Allergy Reactions Criticality Noted Date Comments Aspirin 01/09/2006 Chocolate 01/09/2006 Iodine 01/09/2006 Penicillins 01/09/2006 Sulfa (Sulfonamide Antibiotics) 12/13 Medications NEXIUM 40 MG CAP Take one(1) tablet daily. 0 01/09/2006 Active LASIX 40 MG TAB Take one(1) tablet daily if needed 0 01/09/2006 Active K-DUR 20 MEQ TAB Take one(1) tablet daily if needed 0 01/09/2006 Active Omeprazole Magnesium (PRILOSEC OTC) 20 mg ORAL tablet Take 20 mg by mouth twice daily. 08/04/2010 Active GLUCOSAMINE HCL/CHONDR PETTIT A NA (GLUCOSAMINE-CHO NDROITIN) 1,500-1,200 mg/30 mL ORAL Liqd Take by mouth once daily. 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 Encounters Date Type Department Care Team Description 08/02/2024 Transcribe Orders Referring Physician [address] [place], [place] [id number] Dakotah Gallardo II, DO Spinal stenosis of lumbar region, unspecified whether neurogenic claudication present (Primary Dx); Spasm of lumbar paraspinous muscle from Last 3 Months Family History Medical History Relation Comments Asthma Daughter Hypertension Daughter None Father Unknown Diabetes Maternal Grandmother COPD Mother Cancer Mother Mother is living - age 82 - h/o colon CA (remission) Thyroid Mother Relation Status Comments Daughter Father Maternal Grandmother Mother Social History Tobacco Use Types Packs/Day [...] file Not on file Not on file Last Filed Vital Signs Vital Sign Reading Time Taken Comments Blood Pressure 174/86 08/04/2010 7:47 AM EDT Pulse 82 08/04/2010 7:47 AM EDT Temperature - - Respiratory Rate 20 06/07/2006 8:09 AM EDT Oxygen Saturation - - Inhaled Oxygen Concentration - - Weight 88 kg (194 lb) 03/20/2006 1:59 PM EST Height 174 cm (5' 8.5 ) 03/20/2006 1:59 PM EST Body Mass Index 29.07 03/20/2006 1:59 PM EST Plan of Treatment Health Maintenance Due Date Last Done Comments Anxiety Screening 05/27/1963 Depression Screening 05/27/1963 DTaP,Tdap,Td Vaccine (1 - Tdap) 1964 Pneumococcal Vaccine: 50+ (1 of 1 - PCV) 05/27/1995 Shingrix Vaccine (1 of 2) 05/27/1995 Diabetes Screening 03/20/2009 03/20/2006, 01/10/2006 Bone Density Screening 2010 RSV Vaccine (1 - 1-dose 75+ series) 2020 Covid-19 Vaccine ( - season) 2023 Advance Directive Discussion 03/13/2024 Influenza Vaccine (Season Ended) 2024 Procedures Procedure Name Priority Date/Time Associated Diagnosis Comments COMPREHENSIVE METABOLIC PANEL Routine 03/20/2006 12:30 PM EST Preop Cardiovasc Exam from Last 3 Months or Most Recently Relevant to Health Maintenance Results * COMP METABOLIC PANEL (03/20/2006 12:30 PM EST) Protein, Total 7.0 6.0 - 8.4 g/dL [facility] Albumin 4.2 3.5 - 5.0 g/dL [facility] Calcium 9.3 8.5 - 10.5 mg/dL [facility] Bilirubin, Total 0.5 0.0 - 1.5 mg/dL [facility] Alkaline Phosphatase 71 40 - 150 U/L [facility] AST 26 7 - 40 U/L [facility] Glucose 89 65 - 100 mg/dL [facility] BUN 14 8 - 25 mg/dL [facility] Creatinine 0.7 0.7 - 1.4 mg/dL [facility] Sodium 139 132 - 148 mmol/L [facility] Potassium 4.4 3.5 - 5.0 mmol/L [facility] Chloride 100 98 - 110 mmol/L [facility] CO2 24 23 - 32 mmol/L [facility] Anion Gap 15 0 - 15 mmol/L [facility] ALT 29 0 - 45 U/L [facility] Blood specimen (specimen) BLOOD SPECIMEN / Unknown 03/20/2006 12:30 PM EST Earnest Bermudez MD LABORATORY Final Result [facility] [address] [place] [address] from Last 3 Months or Most Recently Relevant to Health Maintenance Insurance [address] [place] [address] MEDICARE [address] [place] [address] Care Teams Distance Education Coordinator Relationship Specialty Start [place] [address] [place] [id number] PCP - General 01/10/06 Dakotah Gallardo II, DO [address] [place] [address] Family Medicine 08/02/24
--- NOTE | 2024-08-05 09:52 | ED.GENADUL1 ---
HPI HPI - General Adult General Chief complaint: Weakness Stated complaint: TREMORS, VISUAL DISTRUBANCE Time Seen by Provider: 08/05/24 09:34 Source: patient Mode of arrival: walk-in History of Present Illness HPI narrative: 79-year-old female presents to the emergency department for tremors. She has been having these tremors on the left side of her body for an extended period of time and she has been referred to a neurologist. She had a stroke in 2016, 9 years ago. The tremor seem to be worse today and she was brought in. She does not complain of a headache and there was no fall or injury. Related Data Home Medications ?Medication ?Instructions ?Recorded ?Confirmed amlodipine 5 mg tablet 5 mg PO DAILY 08/05/24 08/05/24 cyclobenzaprine 5 mg tablet 5 mg PO Q12H 08/05/24 08/05/24 gabapentin 300 mg capsule 300 mg PO Q8H 08/05/24 08/05/24 omeprazole 20 mg capsule,delayed 20 mg PO DAILY 08/05/24 08/05/24 release oxycodone-acetaminophen 5 mg-325 1 tab PO Q8H 08/05/24 08/05/24 mg tablet pregabalin 225 mg capsule 225 mg PO Q12H 08/05/24 08/05/24 triamterene 37.5 1 tab PO DAILY 08/05/24 08/05/24 mg-hydrochlorothiazide 25 mg tablet Review of Systems ROS Narrative A ten point review of systems is negative except as noted above. PFSH PFSH Social History Little interest or pleasure in doing things: not at all Feeling down, depressed, or hopeless: not at all Exam Narrative Exam Narrative: Nurses note and vital signs reviewed and patient is not hypoxic. General: The patient appears well and in no apparent distress. Patient is resting comfortably on cart. Skin: Warm, dry, no pallor noted. There is no rash noted. Head: Normocephalic, atraumatic Eye: Normal conjunctiva, no drainage Ears, Nose, Mouth, and Throat: oral mucosa is moist. Nares patent. Cardiovascular: Regular Rate and Rhythm Respiratory: Patient is in no distress, no accessory muscle use, lungs are clear to auscultation, no wheezing, rales or rhonchi Back: non-tender GI: Soft and nontender Musculoskeletal: The patient has no evidence of calf tenderness, no pitting edema, symmetrical pulses noted bilaterally Neurological: A&O x4, normal speech; she had mild tremors intermittently of her left arm. Psychiatric: Cooperative Constitutional Vital Signs, click to edit/add: Last Vital Signs Temp 97.4 F L 08/05/24 09:36 Pulse 90 08/05/24 09:36 Resp 18 08/05/24 09:36 BP 117/69 08/05/24 09:36 Pulse Ox 87 L 08/05/24 09:36 Course Vital Signs Vital signs: Vital Signs Temperature 97.4 F L 08/05/24 09:36 Pulse Rate 90 08/05/24 09:36 Respiratory Rate 18 08/05/24 09:36 Blood Pressure 117/69 08/05/24 09:36 Pulse Oximetry 87 L 08/05/24 09:36 Temperature 97.4 F L 08/05/24 09:36 Pulse Rate 90 08/05/24 09:36 Respiratory Rate 18 08/05/24 09:36 Blood Pressure 117/69 08/05/24 09:36 Pulse Oximetry 87 L 08/05/24 09:36 Medical Decision Making MDM Narrative Medical decision making narrative: Her workup including CT brain is negative. I had a discussion with the family regarding her disposition. We discussed admission to the hospital versus discharge home and family is comfortable taking her home. They have been having difficulty getting into see a neurologist and they are going to call [facility] for neurology follow-up. She will also discontinue the Lyrica. Family states it is not helping her and they think it might be making her more weak and tired. Treatment diagnosis and follow-up were discussed thoroughly. Differential Diagnosis Differential Diagnosis: CVA, hemorrhagic stroke, medication side effect Lab Data Lab results reviewed: Yes I reviewed the patient's lab results Labs: Lab Results 08/05/24 Range/Units 10:00 WBC 4.6 (4.0-11.0) 10^3/uL RBC 4.13 L (4.20-5.40) 10^6/uL Hgb 13.6 (12.0-16.0) g/dL Hct 42.1 (36.0-48.0) % MCV 101.9 H (81.0-99.0) fL MCH 32.9 (26.7-34.0) pg MCHC 32.3 (29.9-35.2) g/dL RDW 12.2 (11.0-15.0) % Plt Count 273 (150-450) 10^3/uL MPV 10.1 (9.5-13.5) fL Neut % (Auto) 35.1 L (43.0-75.0) % Lymph % (Auto) 39.6 (20.5-60.0) % [place] % (Auto) 18.5 H (1.7-12.0) % Eos % (Auto) 5.5 (0.9-7.0) % Baso % (Auto) 1.1 (0.2-2.0) % Neut # (Auto) 1.6 (1.4-6.5) 10^3/uL Lymph # (Auto) 1.8 (1.2-3.8) 10^3/uL [place] # (Auto) 0.8 (0.3-0.8) 10^3/uL Eos # (Auto) 0.3 (0.0-0.7) 10^3/uL Baso # (Auto) 0.1 (0.0-0.1) 10^3/uL Abs Immat Gran (auto) 0.01 (0.00-0.03) 10^3/uL Imm/Tot Granulo (auto) 0.2 (0.0-0.5) % Sodium 144 (136-145) mmol/L Potassium 4.2 (3.5-5.1) mmol/L Chloride 101 (98-107) mmol/L Carbon Dioxide 35.5 H (21.0-32.0) mmol/L Anion Gap 11.7 BUN 22.0 H (7.0-18.0) mg/dL Creatinine 0.82 (0.55-1.02) mg/dL Est GFR ( Amer) >60 (>=60 mL/min/1.73m^2) Est GFR (Non-Af Amer) >60 (>=60 mL/min/1.73m^2) BUN/Creatinine Ratio 26.8 Glucose 92 (74-106) mg/dL Calcium 9.1 (8.5-10.1) mg/dL Imaging Data CT scan - head: Radiologist's impression: No acute intracranial process Discharge Plan Discharge Chief Complaint: Weakness Clinical Impression: Tremors of nervous system Patient Disposition: Home, Self-Care Time of Disposition Decision: 10:54 Condition: Good Mode of Transportation: Private Vehicle Prescriptions / Home Meds: No Action amlodipine 5 mg tablet 5 mg PO DAILY cyclobenzaprine 5 mg tablet 5 mg PO Q12H gabapentin 300 mg capsule 300 mg PO Q8H omeprazole 20 mg capsule,delayed release(DR/EC) 20 mg PO DAILY oxycodone-acetaminophen 5-325 mg tablet 1 tab PO Q8H pregabalin 225 mg capsule 225 mg PO Q12H triamterene-hydrochlorothiazid 37.5-25 mg tablet 1 tab PO DAILY Print Language: Croatian Instructions: Tremors (ED) Additional Instructions: Discontinue Lyrica [facility] [phone] Obtain a medic alert system Referrals: Dakotah Gallardo DO [Primary Care Provider] - 1 week
[2024-08-05 10:10] LABS: Basophils Absolute Auto 0.1 10^3/uL (0.0-0.1); Basophils Percent Auto 1.1 % (0.2-2.0); Eosinophils Absolute Auto 0.3 10^3/uL (0.0-0.7); Eosinophils Percent Auto 5.5 % (0.9-7.0); Hematocrit 42.1 % (36.0-48.0); Hemoglobin 13.6 g/dL (12.0-16.0); Immature Granulocytes Abs Auto 0.01 10^3/uL (0.00-0.03); Immature Granulocytes Pct Auto 0.2 % (0.0-0.5); Lymphocytes Absolute Auto 1.8 10^3/uL (1.2-3.8); Lymphocytes Percent Auto 39.6 % (20.5-60.0); Mean Corpuscular HGB Conc 32.3 g/dL (29.9-35.2); Mean Corpuscular Hemoglobin 32.9 pg (26.7-34.0); Mean Corpuscular Volume 101.9 fL (81.0-99.0); Mean Platelet Volume 10.1 fL (9.5-13.5); Monocytes Absolute Auto 0.8 10^3/uL (0.3-0.8); Monocytes Percent Auto 18.5 % (1.7-12.0); Neutrophils Absolute Auto 1.6 10^3/uL (1.4-6.5); Neutrophils Percent Auto 35.1 % (43.0-75.0); Platelet Count 273 10^3/uL (150-450); Red Blood Count 4.13 10^6/uL (4.20-5.40); Red Cell Distribution Width 12.2 % (11.0-15.0); White Blood Count 4.6 10^3/uL (4.0-11.0)
[2024-08-05 10:31] LABS: Anion Gap 11.7; BUN Creatinine Ratio 26.8; Calcium 9.1 mg/dL (8.5-10.1); Carbon Dioxide 35.5 mmol/L (21.0-32.0); Chloride 101 mmol/L (98-107); Estimated GFR (African America >60 (>=60 mL/min/1.73m^2); Estimated GFR (Non-African Ame >60 (>=60 mL/min/1.73m^2); Glucose 92 mg/dL (74-106); Potassium 4.2 mmol/L (3.5-5.1); Sodium 144 mmol/L (136-145)
[2024-08-05 11:15] VITALS: BP 146/88; PULSE 86; O2SAT 93
== END 2024-08-05 11:15 | disposition home or self-care (01) ==
PROVIDERS: Emergency Provider Emergency Medicine; PCP Family Medicine Adult Medicine
DX: R25.1 Tremor, unspecified (principal); Z86.73 Personal history of transient ischemic attack (TIA), and cerebral infarction without residual deficits
CPT/HCPCS: 36415; 70450; 80048; 85025; 99284